=== PATIENT | male | born 1975 | race Caucasian/White ===

== ENCOUNTER 2016-05-16 16:16 | Inpatient (IN) | payer BC, OTHER ==
[~2016-05-16] VITALS: Ht 177.8 cm; Wt 84.3 kg
[~2016-05-16 16:16] MED LIST: AGM875 PO; LRT5 PO; PHEN1TAB85 PO
[2016-05-16] MEDS ORDERED: LAMO100T16 PO (16:31)
[2016-05-16] MEDS ORDERED: SODIUM CHLORIDE 0.9% 1000ML 1,000 ML IV STA (16:47)
[2016-05-16] MEDS ORDERED: LORAZEPAM 2 MG/ML 1 ML VIAL IV STA ×4 (16:47→19:09)
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
[2016-05-16 16:52] LABS: HEMATOCRIT 39.6 % (42-52); MEAN CELL VOLUME 114.8 fL (80-100); MEAN CORPUSCULAR HEMOGLOBIN 39.1 pg (25-34); MEAN CORPUSCULAR HGB CONC 34.1 g/dl (32-36); MEAN PLATELET VOLUME 10.2 fL (7.4-10.4); PLATELET COUNT 207 K/uL (130-400); RED BLOOD COUNT 3.45 M/uL (4.7-6.1); WHITE BLOOD COUNT 6.98 K/uL (4.8-10.8)
[2016-05-16 16:54] LABS: ISTAT CREATININE 0.7 mg/dl (0.6-1.3); ISTAT HEMOGLOBIN 15.3 g/dl (14.0-18.0); ISTAT IONIZED CALCIUM 1.2 mmol/l (1.12-1.32)
[2016-05-16] MEDS ORDERED: CYANOCOBALAMIN 500 MCG TAB (VIT B-12) PO STA (16:54)
[2016-05-16] MEDS ORDERED: PYRIDOXINE HCL 50 MG TAB PO STA (16:54)
[2016-05-16 17:03] LABS: BUN/CREATININE RATIO 10.5 (10-20); CALCIUM 9.3 mg/dl (8.5-10.1); CREATININE 1.1 mg/dl (0.60-1.40); MAGNESIUM 2.4 mg/dl (1.8-2.4); POTASSIUM 3.7 mmol/L (3.5-5.1)
[2016-05-16 17:14] LABS: PHOSPHORUS 4.1 mg/dl (2.5-4.9); THYROID STIMULATING HORMONE 2.02 uIu/ml (0.300-4.500)
[2016-05-16 17:15] LABS: INR 0.9 (0.9-1.1); PROTHROMBIN TIME (PATIENT) 9.9 SECONDS (9.0-12.0)
[2016-05-16] MEDS ORDERED: MULTI-VITAMIN INFUSION INJ 10 ML, THIAMINE HCL INJ 100 MG, FoLIC ACID INJ 1 MG in SODIU... IV ONE (17:15)
[2016-05-16 17:24] LABS: MANUAL MICROSCOPIC REQUIRED? NO; REVIEW REQ? NO; URINE APPEARANCE CLEAR (CLEAR); URINE BILIRUBIN NEG (NEG); URINE COLOR DK YELLOW; URINE EPITHELIAL CELL AUTO 0-5 /lpf (0-5); URINE NITRITE NEG (NEG); URINE SPECIFIC GRAVITY 1.022 (1.000-1.030); UROBILINOGEN NEG (NEG)
[2016-05-16 17:37] LABS: BASO % 0.6 %; BASO ABS # 0.04 K/uL (0-0.2); COMPLETE YES; EOS % 1.3 %; IG% 0.7 %; LYMPH ABS # 2.93 K/uL (1.2-3.4); MONO % 18.6 %; NEUT % 36.8 %
[2016-05-16] MEDS ORDERED: CLONIDINE HCL 0.3 MG/24 HR TRANSDERM SYS TD STA (17:59)
[2016-05-16 18:17] LABS: BENZODIAZEPINE, URINE NEG (NEG); COCAINE,URINE NEG (NEG); PHENCYCLIDINE, URINE NEG (NEG)
[2016-05-16] MEDS ORDERED: GABAPENTIN 600 MG TAB PO SCH (19:00)
[2016-05-16] MEDS ORDERED: LORAZEPAM 2 MG/ML 1 ML VIAL IV PRN (19:00)
[2016-05-16] MEDS ORDERED: ONDANSETRON INJ 2 MG/ML 2 ML VIAL IV PRN (19:00)
[2016-05-16] MEDS ORDERED: ACETAMINOPHEN 325 MG TAB PO PRN (19:00)
[2016-05-16] MEDS: SODIUM CHLORIDE 0.9% 1000ML 1,000 ML IV SCH (19:15)
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
[2016-05-16] MEDS ORDERED: GABAPENTIN 1200MG LOADING DOSE PO SCH (20:00)
[2016-05-16] MEDS ORDERED: MIDAZOLAM HCL 5 MG/ML 1 ML VIAL ONE (20:14)
[2016-05-16] MEDS ORDERED: LORAZEPAM 2 MG/ML 1 ML VIAL IV SCH ×2 (20:15→20:20)
[2016-05-16] MEDS ORDERED: MIDAZOLAM HCL 5 MG/ML 1 ML VIAL IV STA (20:15)
[2016-05-16] MEDS ORDERED: NURSING VERBAL MED ORDER ONE ×2 (20:15)
[2016-05-16] MEDS ORDERED: RAPID SEQUENCE INDUCTION BAG ONE (20:16)
[2016-05-16 20:18] VITALS: BP 201/134
[2016-05-16] MEDS ORDERED: PROPOFOL IV EMULSION 10 MG/ML 100 ML VIAL IV ONE (20:20)
[2016-05-16 20:26] VITALS: BP 168/106; PULSE 109; TEMP 36.9
[2016-05-16] MEDS ORDERED: NURSING DECISION MEDICATION ORDER ONE (20:30)
[2016-05-16] MEDS ORDERED: DexMEDEtomidine 4 mcg/ml Loading Dose IV ONE (20:30)
[2016-05-16] MEDS ORDERED: DexMEDEtomidine HCL INJ 200 MCG in SODIUM CHLORIDE 0.9% 50ML 48 ML IV PRN (20:30)
[2016-05-16 21:25] VITALS: BP 149/96; PULSE 91; O2SAT 100
[2016-05-16 21:39] VITALS: O2SAT 91; Ht 177.8 cm; Wt 84.3 kg
[2016-05-16 22:00] VITALS: BP 125/87; PULSE 87; O2SAT 100
[2016-05-16 23:03] LABS: ISTAT ALLEN TEST Pass; ISTAT ARTERIAL BLOOD GAS HCO3 24 meq/L (19-24); ISTAT ARTERIAL BLOOD GAS PCO2 46 mmHg (35-46); ISTAT ARTERIAL BLOOD GAS PO2 272 mmHg (80-95); ISTAT ARTERIAL BLOOD GAS pH 7.33 (7.35-7.45); ISTAT CARBON DIOXIDE 26 mEq/l (24-31); ISTAT DELIVERY SYSTEM SimpleMask; ISTAT SITE R Radial
[2016-05-16 23:59] VITALS: O2SAT 98
[2016-05-17] VITALS (12 sets, daily range): BP systolic 131–155; BP diastolic 86–105; PULSE 65–81; TEMP 37.1–37.9; O2SAT 90–99
[2016-05-17] MEDS: DexMEDEtomidine HCL INJ 400 MCG in SODIUM CHLORIDE 0.9% 100ML 96 ML IV PRN ×4 (01:06→17:21)
[2016-05-17] MEDS: SODIUM CHLORIDE 0.9% 1000ML 1,000 ML IV SCH (05:30)
[2016-05-17 05:53] LABS: HEMATOCRIT 35.5 % (42-52); MEAN CELL VOLUME 114.1 fL (80-100); MEAN CORPUSCULAR HEMOGLOBIN 38.9 pg (25-34); MEAN CORPUSCULAR HGB CONC 34.1 g/dl (32-36); PLATELET COUNT 187 K/uL (130-400); RED BLOOD COUNT 3.11 M/uL (4.7-6.1)
[2016-05-17] MEDS ORDERED: GABAPENTIN 600MG Q6H DOSE PO SCH (06:00)
[2016-05-17 06:24] LABS: BUN/CREATININE RATIO 8.6 (10-20); CREATININE 0.71 mg/dl (0.60-1.40); MAGNESIUM 2.2 mg/dl (1.8-2.4); POTASSIUM 3.8 mmol/L (3.5-5.1)
[2016-05-17 06:33] LABS: CALCIUM 7.9 mg/dl (8.5-10.1)
--- NOTE | 2016-05-17 06:41 | DIAGNOSTIC IMAGING REPORT ---
CHEST ONE VIEW PORTABLE CLINICAL HISTORY: s/p NGT tube position COMPARISON STUDY: No previous studies for comparison. FINDINGS: Nasogastric tube placed within the stomach. Bibasilar atelectasis. Mid and upper lungs are considered clear. IMPRESSION: Nasogastric tube placed within the mid stomach Electronically signed by: Thierry Newman M.D. 05/17/2016 6:39 AM Dictated Date/Time: 05/17/2016 6:39 AM
--- NOTE | 2016-05-17 07:48 | CRITICAL CARE CONSULTATION ---
DATE OF CONSULTATION: 05/16/2016 DATE OF CONSULTATION: 05/16/2016. The patient was seen on 05/16/2016. This is the dictation for that visit. CHIEF COMPLAINT: Seizure. HISTORY OF PRESENT ILLNESS: The patient is a 40-year-old gentleman who lives in [place] and was visiting his family when he had a seizure in the back of their car traveling from [place] to [place] today. He is not able to give me any history whatsoever so his history is taken exclusively from the chart and from talking to the hospitalist team. He evidently arrived from [place] 4 days ago and had a seizure somewhere around that time. He has a known seizure disorder, but also has a history of alcohol abuse. He told the hospitalist team that he usually drinks 2-4 40 ounce bottles of beer per day and was drinking at some point last night. His family reports that he was hallucinating this morning and seeing cats. They took him to [place] [employer] and on the way home he had a seizure which lasted about a minute and a half. From what I see in the records, he has had a history of seizures since perhaps 2009 when he had an EEG that I see in our system. Other than the hallucinations there were no other reports of fevers, chills, nausea, vomiting, abdominal pain or headaches. In the Emergency Department, the patient received Ativan 1 mg and normal saline 1 liter as well as multivitamin, thiamine and folate. He was hypertensive and clonidine patch was placed. He was evaluated by the hospitalist service and given an additional 11 mg of Ativan over the course of 60-90 minutes secondary to severe agitation and tremulousness. He was admitted to the floor and became agitated to the point where he needed to have 3 security guards helping to keep him safe and calm. He was put in 4-point soft restraints and transferred to the intensive care unit. I talked to the hospitalist service prior to his transfer and suggested Versed 5 mg IV x1. When I arrived in the intensive care unit, he was already somnolent after the Versed. Precedex has been started and an NG tube has been placed. PAST MEDICAL HISTORY: Seizure disorder. There are reports that he may have missed 1 dose of his Lamictal a week or 2 ago. PAST SURGICAL HISTORY: Unknown. ALLERGIES: None listed. OUTPATIENT MEDICATIONS: Lamictal 100 mg p.o. b.i.d. SOCIAL HISTORY: He smokes tobacco and lives with a roommate. He has a history of alcohol abuse and has had at least 1 DUI in the past. I understand he no longer drives. FAMILY HISTORY: Significant for hypertension. REVIEW OF SYSTEMS: Not obtainable as patient is sedated and when he is not sedated he is hallucinating. PHYSICAL EXAMINATION: VITAL SIGNS: Temperature 37.1, heart rate 73, respiratory rate 18, blood pressure 131/97, oxygen saturation 98% on 4 liters nasal cannula. HEAD, EYES, EARS, NOSE, AND THROAT: Pupils are approximately 4 mm and reactive bilaterally. There is no scleral icterus. I am unable to see inside of his mouth. NECK: No adenopathy, no stridor. No nuchal rigidity. LUNGS: Clear to auscultation bilaterally. No rales, rhonchi or wheezes. CHEST: Symmetric expansion. HEART: Regular rate and rhythm, no murmurs. ABDOMEN: Firm, nontender, nondistended. Active bowel sounds. EXTREMITIES: Warm. No edema. Normal musculature. Radial and dorsalis pedis pulses are 2+ bilaterally. SKIN: Shows scattered tattoos. NEUROLOGICALLY: He will localize to painful stimuli and try to sit up, but does not follow commands. He moves all 4 extremities, but not to command. They seem to move equally. LABORATORY DATA: White blood cell count 6.98, hemoglobin 13.5, hematocrit 39.6, platelets 207. No left shift. pH 7.33, pCO2 46, pO2 272, HCO3 24. PT, PTT, INR within normal limits. Sodium 138, potassium 3.7, chloride 101, CO2 13, BUN 12, creatinine 1.1. Blood sugar 123, AST 100, ALT 91, alkaline phosphatase 140 and total protein 8.5. TSH 2.02. Urine drug screen negative. Lamictal level pending. Salicylate less than 1.7. Alcohol less than 3. Urinalysis is essentially unremarkable. IMPRESSION: 1. Seizure in a patient with a history of seizure disorder and likely alcohol withdrawal. He does not have an elevated white blood cell count nor is he afebrile. This could be a breakthrough seizure or related to alcohol withdrawal. I have a very low suspicion that this has anything to do with infection. 2. Agitated delirium with hypertension and tachycardia likely secondary to alcohol withdrawal versus postictal state. He has received a total of 12 mg of Ativan and is now on a Precedex infusion. He is protecting his airway. 3. Metabolic acidosis on chemistries for initial Emergency Department labs which was likely secondary to his seizure. This is improved based on ABG done after he was sedated this evening. 4. Mildly elevated liver function tests. This may be secondary to alcohol use. PLAN: NEUROLOGY: Continue the Precedex infusion and begin to titrate it. I have started p.r.n. Ativan and he is on the gabapentin alcohol withdrawal protocol. Consider CT scan of the brain once he is more stable. I have ordered an EEG and we will apply seizure precautions. Continue Lamictal 100 mg b.i.d. PULMONARY: Keep head of bed at 30 degrees of possible. Try to avoid aspiration. CARDIOVASCULAR: Blood pressure has improved with the clonidine patch. Continue for now. GASTROINTESTINAL: Maintain n.p.o. status. An NG tube was placed this evening. Trend the liver function tests and check an ammonia level. A proton pump inhibitor for GI prophylaxis. Continue multivitamin, thiamine and folate. HEMATOLOGY: No active acute issues. RENAL: No acute issues. IV fluids have been started. INFECTIOUS DISEASE: Watch for any signs of infection. He is at risk for aspiration but presently his chest x-ray is clear. MISCELLANEOUS: Provide DVT prophylaxis with Lovenox. Overall, he is improved on Precedex compared to what I understand he was like earlier in the day today. He still may require endotracheal intubation. We will continue to watch his airway carefully and titrate medications. Critical care time excluding procedures is 90 minutes. [facility]
[2016-05-17] MEDS: NICOTINE 14 MG/24 HR TDSY TD SCH (08:10)
[2016-05-17] MEDS: THIAMINE HCL 100 MG TAB PO SCH (08:12)
[2016-05-17] MEDS: MULTIVITAMIN TAB PO SCH (08:12)
[2016-05-17] MEDS ORDERED: LORAZEPAM 2 MG/ML 1 ML VIAL IV PRN ×2 (08:45)
[2016-05-17] MEDS: LORAZEPAM 2 MG/ML 1 ML VIAL IV SCH ×5 (08:56→21:00)
[2016-05-17] MEDS: ENOXAPARIN 40 MG/0.4 ML SYR SQ SCH (08:56)
[2016-05-17] MEDS: D5W AND 1/2NSS 1,000 ML IV SCH ×2 (10:19→17:56)
--- NOTE | 2016-05-17 10:23 | EEG Procedure Note ---
EEG Procedure Note Date of Service May 17, 2016. Start / End Times Start Time: 7:47 AM End Time: 8:08 AM Referring Physician Maribell Hilliard History This is a 40-year-old male with a history of alcohol abuse, seizures, and possible alcohol withdrawal. EEG for further evaluation of recent seizure-like activity. The patient reportedly received Ativan before this EEG. Home Medication List Scheduled Lamotrigine (Lamictal), 100 MG PO BID Inpatient Medication List Current Inpatient Medications Medications (Trade) Dose Ordered Sig/Curtis Route Start Time Stop Time Status Last Admin Dose Admin Acetaminophen (Tylenol Tab) 650 mg Q4H PRN PO 05/16/16 19:00 06/15/16 18:59 Ondansetron HCl (Zofran Inj) 4 mg Q6H PRN IV 05/16/16 19:00 06/15/16 18:59 Nicotine (Nicoderm Cq 14MG Patch) 1 patch QAM TD 05/17/16 09:00 06/16/16 08:59 05/17/16 08:10 1 PATCH Miscellaneous (Remove Nicoderm Patch) 1 ea HS N/A 05/16/16 21:00 06/15/16 20:59 05/16/16 21:00 1 EA Multivitamins (Multivitamin Tab) 1 tab QAM PO 05/17/16 09:00 06/16/16 08:59 05/17/16 08:12 1 TAB Folic Acid (Folvite Tab) 1 mg QAM PO 05/17/16 09:00 06/16/16 08:59 05/17/16 08:11 1 MG Thiamine HCl (Vitamin B-1 Tab) 100 mg QAM PO 05/17/16 09:00 06/16/16 08:59 05/17/16 08:12 100 MG Lamotrigine 100 mg 100 mg BID PO 05/17/16 09:00 06/16/16 08:59 05/17/16 08:12 100 MG Dexmedetomidine HCl/Sodium Chloride (PreCEDEX INJ/ Nss 100ml) 100 ml @ 0 mls/hr Q0M PRN IV 05/17/16 00:30 05/21/16 00:29 05/17/16 05:31 21 MLS/HR Lorazepam (Ativan Inj) 2 mg Q3H IV 05/17/16 09:00 06/16/16 08:59 3/10/17 08:56 2 MG Lorazepam (Ativan Inj) 1 mg Q1H PRN IV 05/17/16 08:45 06/16/16 08:44 Enoxaparin Sodium 40 mg 40 mg DAILY SQ 05/17/16 09:00 06/16/16 08:59 05/17/16 08:56 40 MG Dextrose/Sodium Chloride (D5W And 1/2nss) 1,000 ml @ 125 mls/hr Q8H IV 05/17/16 09:30 06/16/16 09:29 Folic Acid (Folvite Tab) 1 mg QAM PO 05/18/16 09:00 06/17/16 08:59 Description This is a 21 electrode EEG with a single channel dedicated to limited EKG. The electrodes were placed in accordance with the International 10-20 system. First half of the EEG was limited by frequent movement artifact. At the start of this recording the patient was in altered mental status. The background was poorly organized with no well formed anterior to posterior gradient. Background was composed of symmetric moderate amplitude predominantly 5-6 Hz theta frequency with intermixed alpha and excess beta frequencies. Hyperventilation was not done. Photic stimulation at various frequencies did not produce any abnormalities. Sleep was indicated by symmetric sleep spindles. Interpretation This is an abnormal routine EEG secondary to moderate background disorganization and slowing. There was no electrographic seizures or epileptiform discharges. Clinical Correlation This EEG indicates a moderate encephalopathy of nonspecific etiology. Sedating medications could contribute to encephalopathy. Excess beta frequencies in the background likely secondary to recent benzodiazepine use.
--- NOTE | 2016-05-17 12:50 | Neurology Consultation ---
Neurology Consultation Date of Consultation: May 17, 2016. Attending Physician: Tete Ashford M.D. Primary Care Physician: No Doctor, Assigned Reason for Consultation: seizure History of Present Illness Source: patient, hospital records Freddie is a 40 year old male with PMH seizures, and alcohol abuse. He is disoriented but is able to tell me he is here because of having a seizure. He apparently drinks alcohol heavily according to chart since his divorce from his last . He apparently showed up at his parents house unannounced last week. He states he hasn't drank for several weeks and he thinks he has had several seizures. He was in the back seat of his parents car when he seized for 1.5 minutes and was taken to the hospital. ED he has been severely tremulous, he is not oriented to place. Family was asked to leave because the patient was becoming severely agitated because he didn't know them. He reports drinking 2- 4 40s daily and has a history of DUIs in the past and no longer drives. He reports history of tremors when he has withdrawal previously. He takes Lamictal for seizures and apparently missed a dose 2 weeks ago but has been compliant since then. He was tachycardic and hypertensive in the ED. Tox screen is negative. AG is >20, bicarb is 13. He received a banana bag, 2mg IV Ativan and a clonidine patch. He states he takes his Lamictal 1 tablet in the morning and 1 tablet at night and does not miss a dose. denies pain, but his his difficulty to keep awake. Past Medical/Surgical History Medical Problems: (1) Alcohol withdrawal Status: Acute (2) Seizure Status: Acute Social History Alcohol Use: heavy Marital Status: Housing Status: lives with roommate Occupation Status: employed Allergies Coded Allergies: No Known Allergies (Verified , 05/16/16) Current Inpatient Medications Current Inpatient Medications Medications (Trade) Dose Ordered Sig/Curtis Route Start Time Stop Time Status Last Admin Dose Admin Acetaminophen (Tylenol Tab) 650 mg Q4H PRN PO 05/16/16 19:00 06/15/16 18:59 Ondansetron HCl (Zofran Inj) 4 mg Q6H PRN IV 05/16/16 19:00 06/15/16 18:59 Nicotine (Nicoderm Cq 14MG Patch) 1 patch QAM TD 05/17/16 09:00 06/16/16 08:59 05/17/16 08:10 1 PATCH Miscellaneous (Remove Nicoderm Patch) 1 ea HS N/A 05/16/16 21:00 06/15/16 20:59 05/16/16 21:00 1 EA Multivitamins (Multivitamin Tab) 1 tab QAM PO 05/17/16 09:00 06/16/16 08:59 05/17/16 08:12 1 TAB Folic Acid (Folvite Tab) 1 mg QAM PO 05/17/16 09:00 06/16/16 08:59 05/17/16 08:11 1 MG Thiamine HCl (Vitamin B-1 Tab) 100 mg QAM PO 05/17/16 09:00 06/16/16 08:59 05/17/16 08:12 100 MG Lamotrigine 100 mg 100 mg BID PO 05/17/16 09:00 05/17/16 22:00 05/17/16 08:12 100 MG Dexmedetomidine HCl/Sodium Chloride (PreCEDEX INJ/ Nss 100ml) 100 ml @ 0 mls/hr Q0M PRN IV 05/17/16 00:30 05/21/16 00:29 05/17/16 10:19 21 MLS/HR Lorazepam (Ativan Inj) 2 mg Q3H IV 05/17/16 09:00 06/16/16 08:59 05/17/16 08:56 2 MG Lorazepam (Ativan Inj) 1 mg Q1H PRN IV 05/17/16 08:45 06/16/16 08:44 Enoxaparin Sodium 40 mg 40 mg DAILY SQ 05/17/16 09:00 06/16/16 08:59 05/17/16 08:56 40 MG Dextrose/Sodium Chloride (D5W And 1/2nss) 1,000 ml @ 125 mls/hr Q8H IV 05/17/16 09:30 06/16/16 09:29 05/17/16 10:19 125 MLS/HR Folic Acid (Folvite Tab) 1 mg QAM PO 05/18/16 09:00 06/17/16 08:59 Lamotrigine (Lamictal Tab) 150 mg BID PO 05/18/16 09:00 06/17/16 08:59 Physical Exam Vital Signs (Past 24 Hrs): Date Time Temp Pulse Resp B/P Pulse Ox O2 Delivery O2 Flow Rate FiO2 05/17/16 12:00 Nasal Cannula 2.0 05/17/16 12:00 37.6 81 39 145/92 98 Nasal Cannula 3.0 05/17/16 10:00 81 30 144/102 90 Nasal Cannula 3.0 05/17/16 08:00 Nasal Cannula 3.0 05/17/16 08:00 37.1 65 26 155/105 99 Nasal Cannula 3.0 05/17/16 06:08 71 26 142/86 95 Nasal Cannula 3.0 05/17/16 04:00 98 Nasal Cannula 3.0 05/17/16 04:00 37.1 65 24 142/93 98 Nasal Cannula 3.0 05/17/16 02:00 71 20 134/92 98 Nasal Cannula 3.0 05/17/16 00:01 37.1 73 18 131/97 98 Nasal Cannula 4.0 05/16/16 23:59 98 Nasal Cannula 4.0 05/16/16 22:00 87 125/87 100 05/16/16 21:39 91 Room Air 05/16/16 21:25 91 149/96 100 05/16/16 20:26 36.9 109 168/106 05/16/16 20:18 201/134 05/16/16 19:35 108 27 97 Room Air 05/16/16 19:33 162/105 05/16/16 19:16 05/16/16 19:05 113 18 05/16/16 19:00 126 20 96 Room Air 05/16/16 18:45 21 172/113 05/16/16 18:15 111 24 155/106 95 Room Air 05/16/16 18:00 118 23 165/91 96 Room Air 05/16/16 17:46 111 24 154/100 97 Room Air 05/16/16 17:31 118 21 164/88 97 Room Air 05/16/16 17:16 107 21 168/98 96 Room Air 05/16/16 17:00 123 24 183/115 97 Room Air 05/16/16 16:46 97 Room Air 05/16/16 16:46 121 20 192/115 97 Room Air 05/16/16 16:46 97 Room Air 05/16/16 16:45 117 21 192/115 95 Room Air 05/16/16 16:30 138 22 191/133 97 Room Air 05/16/16 16:25 118 05/16/16 16:23 36.7 117 20 199/168 98 Room Air 05/16/16 16:21 116 19 199/168 99 Room Air Physical Exam: Constitutional: appearance nourished, healthy and normal Ears, Nose, Mouth and Throat: mucous membranes moist, no injection and skin normal, eyes slightly matted shut, NGT in place Cardiovascular: normal S-1 and S-2 and regular rate and rhythm Respiratory: clear to auscultation (CTA) and no rales, rhonchi or wheeze Musculoskeletal: no peripheral edema and good distal pulses Skin: no stigmata of neurocutaneous disease noted and normal and intact Eyes: extraocular muscles intact (EOMI) and pupils equal, round and reactive to light (PERRL), miotic NEUROLOGIC EXAMINATION: Mental status: Alert and interactive Oriented he is not oriented to [place] or the year Oriented to person Speech fluent with no evidence of aphasia Cranial Nerves smile and eye brow raise symmetric Reflexes: Deep tendon reflexes were symmetrical and graded 2/5. Plantar responses were flexor. 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, hip flex plantar flex ext 5/5 bilaterally Laboratory Results Past 24 Hours: 05/17/16 05:20 05/17/16 05:20 Test 05/16/16 16:25 05/16/16 16:30 05/16/16 16:55 05/16/16 17:05 Immature Granulocyte % (Auto) 0.7 % White Blood Count 6.98 K/uL (4.8-10.8) Red Blood Count 3.45 M/uL (4.7-6.1) Hemoglobin 13.5 g/dL (14.0-18.0) Hematocrit 39.6 % (42-52) Mean Corpuscular Volume 114.8 fL (80-100) Mean Corpuscular Hemoglobin 39.1 pg (25-34) Mean Corpuscular Hemoglobin Concent 34.1 g/dl (32-36) Platelet Count 207 K/uL (130-400) Mean Platelet Volume 10.2 fL (7.4-10.4) Neutrophils (%) (Auto) 36.8 % Lymphocytes (%) (Auto) 42.0 % Monocytes (%) (Auto) 18.6 % Eosinophils (%) (Auto) 1.3 % Basophils (%) (Auto) 0.6 % Neutrophils # (Auto) 2.57 K/uL (1.4-6.5) Lymphocytes # (Auto) 2.93 K/uL (1.2-3.4) Monocytes # (Auto) 1.30 K/uL (0.11-0.59) Eosinophils # (Auto) 0.09 K/uL (0-0.5) Basophils # (Auto) 0.04 K/uL (0-0.2) Immature Granulocyte # (Auto) 0.05 K/uL (0.00-0.02) Macrocytosis PRESENT Prothrombin Time 9.9 SECONDS (9.0-12.0) Prothromb Time International Ratio 0.9 (0.9-1.1) Activated Partial Thromboplast Time 25.5 SECONDS (21.0-31.0) Partial Thromboplastin Ratio 1.0 Osmolality 299 mOsm/kg (280-300) Phosphorus Level 4.1 mg/dl (2.5-4.9) Beta-Hydroxybutyric Acid 0.61 mg/dL (0.2-2.81) Thyroid Stimulating Hormone (TSH) 2.020 uIu/ml (0.300-4.500) Chemistry Specimen Hemolysis Bedside Hemoglobin 15.3 g/dl (14.0-18.0) Bedside Hematocrit 45 % (42-52) Bedside Sodium 139 mEq/L (135-144) Bedside Potassium 3.7 mEq/L (3.3-5.0) Bedside Chloride 102 mEq/L (101-112) Bedside Total CO2 15 mEq/l (24-31) Bedside Blood Urea Nitrogen 11 mg/dl (7-18) Bedside Creatinine 0.7 mg/dl (0.6-1.3) Bedside Glucose (other) 123 mg/dl (70-99) Bedside Ionized Calcium (Ken) 1.20 mmol/l (1.12-1.32) Bedside Glucose 96 mg/dl (70-99) Urine Color DK YELLOW Urine Appearance CLEAR (CLEAR) Urine pH 5.0 (4.5-7.5) Urine Specific [place] 1.022 (1.000-1.030) Urine Protein 2+ (NEG) Urine Glucose (UA) 1+ (NEG) Urine Ketones NEG (NEG) Urine Occult Blood 1+ (NEG) Urine Nitrite NEG (NEG) Urine Bilirubin NEG (NEG) Urine Urobilinogen NEG (NEG) Urine Leukocyte Esterase NEG (NEG) Urine WBC (Auto) 1-5 /hpf (0-5) Urine RBC (Auto) 0-4 /hpf (0-4) Urine Hyaline Casts (Auto) 1-5 /lpf (0-5) Urine Epithelial Cells (Auto) 0-5 /lpf (0-5) Urine Bacteria (Auto) NEG (NEG) Urine Opiates Screen NEG (NEG) Urine Methadone, Qualitative NEG (NEG) Urine Barbiturates NEG (NEG) Urine Phencyclidine (PCP) Level NEG (NEG) Ur Amphetamine/Methamphetamine NEG (NEG) MDMA (Ecstasy) Screen NEG (NEG) Urine Benzodiazepines Screen NEG (NEG) Urine Cocaine Metabolite NEG (NEG) Urine Marijuana (THC) NEG (NEG) Test 05/16/16 17:47 05/16/16 19:12 05/16/16 22:43 05/17/16 05:20 Lactic Acid Level 0.7 mmol/L (0.4-2.0) Salicylates Level < 1.7 mg/dl (2.8-20) Ethyl Alcohol mg/dL < 3.0 mg/dl (0-3) Blood Gas Sample Site R Radial Bedside Blood Gas pH (LAB) 7.33 (7.35-7.45) Bedside Blood Gas pCO2 (LAB) 46 mmHg (35-46) Bedside Blood Gas pO2 (LAB) 272 mmHg (80-95) Bedside Blood Gas HCO3 (LAB) 24 meq/L (19-24) Bedside Blood Gas Total CO2 26 mEq/l (24-31) Bedside Blood Gas Base Excess (LAB) -2.0 meq/L (-9-1.8) Bedside Blood Gas O2 Saturation 100.0 % (90-95) Bulmaro Test Pass Oxygen Delivery Device SimpleMask Red Blood Count 3.11 M/uL (4.7-6.1) Mean Corpuscular Volume 114.1 fL (80-100) Mean Corpuscular Hemoglobin 38.9 pg (25-34) Mean Corpuscular Hemoglobin Concent 34.1 g/dl (32-36) RDW Standard Deviation 71.7 fL (36.4-46.3) RDW Coefficient of Variation 17.2 % (11.5-14.5) Mean Platelet Volume 10.0 fL (7.4-10.4) Anion Gap 8.0 mmol/L (3-11) Est Creatinine Clear Calc Drug Dose 145.7 ml/min Estimated GFR () 137.9 Estimated GFR (Non- 119.0 BUN/Creatinine Ratio 8.6 (10-20) Calcium Level 7.9 mg/dl (8.5-10.1) Magnesium Level 2.2 mg/dl (1.8-2.4) Total Bilirubin 0.7 mg/dl (0.2-1) Direct Bilirubin 0.2 mg/dl (0-0.2) Aspartate Amino Transf (AST/SGOT) 64 U/L (15-37) Alanine Aminotransferase (ALT/SGPT) 61 U/L (12-78) Alkaline Phosphatase 80 U/L (45-117) Total Protein 6.6 gm/dl (6.4-8.2) Albumin 3.1 gm/dl (3.4-5.0) Imaging EEG- This is an abnormal routine EEG secondary to moderate background disorganization and slowing. There was no electrographic seizures or epileptiform discharges. Impression 40 year old male s/p seizure after EtOH withdrawal Plan 1. EEG- will slowing but no epileptic activity 2. CT head pending 3. continue thiamine/ folate 4. Ativan 1 mg q 3 hours is currently watch for DTs 5. appears Lamictal home dose was 100 mg twice daily is no increased to 150 mg twice daily 6. lamictal level tomorrow 7. will need close observation for DT risk 8. further recommendations to follow I have seen and discussed above patient with Dr Laury Barrios, neurology I have reviewed pt outpt record. Dr Pedroza last saw pt in 2009 for "alcohol- related"seizures for which he was on Phenobarb. Hx reviewed, CT reviewed. Pt is currently sedated. Oriented to place, person. No complaints, denies headache recalls last etoh 2 d ago. PERRL, unable to vis fundus secondary to miosis, query mild R ptosis, no facial asymm, Moves all fours symmetrically, tremor on intention. Head NCAT, neck suppleImp sz, x2. Delirium suspicious for etoh withdrawal. Have advised Dr Hilliard on increase in Lamictal. Agree with thiamine, Will follow with you, MORENO Barrios MD
--- NOTE | 2016-05-17 12:56 | DIAGNOSTIC IMAGING REPORT ---
HEAD CT NONCONTRAST CT DOSE: 720.95 mGycm HISTORY: Mental status change seizure TECHNIQUE: Multiaxial CT images of the head were performed without the use of intravenous contrast. Comparison: 06/21/2009 Findings: The paranasal sinuses and mastoid air cells are clear. The calvarium and skull base are intact. The ventricles and sulci are within normal limits. There is no mass, hematoma, midline shift, or acute infarct. Impression: No acute intracranial abnormality. Electronically signed by: Thierry Newman M.D. 05/17/2016 12:55 PM Dictated Date/Time: 05/17/2016 12:54 PM
[2016-05-17] MEDS ORDERED: PROMETHAZINE HCL INJ 12.5 MG in SODIUM CHLORIDE 0.9% 50ML 50 ML IV PRN (13:15)
--- NOTE | 2016-05-17 14:36 | CRITICAL CARE PROGRESS NOTE ---
DATE: 05/17/2016 HISTORY OF PRESENT ILLNESS: This is a patient who was admitted to the floor yesterday from the Emergency Department after suffering a seizure. He was transferred to the intensive care unit secondary to increasing agitation, which was being treated with Ativan. When he arrived in the intensive care unit, he was placed on a Precedex infusion after a bolus and an NG tube as well as a Renee catheter were placed at that time. He has remained on Precedex at 1 mcg per kilogram per hour and has been manageable on that overnight. His care was discussed in detail on multidisciplinary rounds today. He coughs at times and will awaken, but follows some commands according to his nurse. I had the opportunity to speak with his sister this morning, who was at the bedside. She reports that the patient arrived at the [place] after flying to [place] [facility] [employer] on Friday. This was a planed visit and he visits his family about once a year as he is originally from [place]. He has been living in [place] for at least 7 years and it sounds to me like his family does not see him very often. He was staying at his parents' house and had a seizure on Friday night, described as "the worst they had seen before." He was in a recliner at that time, but his sister did not know how long the seizure lasted. She saw him Friday and Friday and thought he was doing well. She reports he has tremors, which he has had for many years and that these tremors were worse on Friday. Her family reported that the patient may have been confused and had "bad night" on Friday and Friday night. He may have been walking outside the house at night, but she is really not sure. The patient's parents are elderly and his mother evidently is also sick. Nonetheless, the family is not aware of any present alcohol abuse, but they indicate that he has had alcoholism in the past. They are not sure whether or not he may have been drinking on Friday night. He does not drive due to seizures, but there may have been some beer in a second refrigerator in the basement that he could have had access to. Yesterday, the day of admission, they went to [facility] and on the way home, the patient started having hallucination in seeing his ex- multiple times. He had a seizure, which lasted about a minute and a half while in the car and was brought to the Emergency Department by car, his sister was driving. Notes, he may have fallen out of bed, but other than that, it is unknown whether or not he has suffered any trauma or hit his head. His seizure history goes back many years and his sister believes that it may have been stress induced secondary to multiple challenging events in the patient's life around that time. She does not know what medications he takes or he has been taking them on a consistent basis, but believes that he has. When I talked to the patient today, he is very sedated, but can tell me that he does not have any pain. He is difficult to understand because his words are slurred. He is not agitated. PHYSICAL EXAMINATION: VITAL SIGNS: Maximum temperature 37.1, heart rate 71-109, respiratory rate 18-26, blood pressure 142/90, and oxygen saturation 95% on 3 liters nasal cannula. 24-hour fluid balance is -200 mL. GENERAL: He will open his eyes and inconsistently follow commands, but does move all 4 extremities. Oral mucosa is dry. He coughs at times. LUNGS: Rhonchorous in the bilateral bases. No rales or wheezes. HEART: Regular rate and rhythm. No murmurs noted. ABDOMEN: Firm, nondistended, and nontender. Active bowel sounds. EXTREMITIES: Warm. LABORATORY DATA: White blood cell count 5.4, hemoglobin 12.1, hematocrit 35.5, and platelets 187. Sodium 138, potassium 3.8, chloride 110, CO2 of 25, BUN 6, and creatinine 0.71. AST 64, ALT 61, total bilirubin 0.7, and albumin 3.1. Head CT from today shows no acute process. MEDICATIONS: Tylenol, Precedex, D5 normal saline at 125 mL per hour, Lovenox, folic acid, Lamictal 100 mg p.o. b.i.d., Ativan 3 mg IV q. 2 hours p.r.n. restlessness, multivitamin, nicotine patch, Zofran, and thiamine. EEG done this morning shows no EEG evidence of seizures or epileptiform discharges. There is moderate encephalopathy of nonspecific etiology as well. Excess beta frequencies in the background, likely secondary to recent benzodiazepine use. EKG from today shows normal sinus rhythm with nonspecific ST-T wave changes, corrected QT interval at 502 milliseconds. ASSESSMENT: 1. Seizure, possibly related to alcohol withdrawal; however, he says he has a seizure disorder. Information that I have access to is limited regarding his previous visits for seizures. He has remained seizure free since he has been in the hospital. 2. Agitated delirium, which I suspect is secondary to alcohol withdrawal, although I do not have any definite recent history to substantiate that. 3. History of alcoholism. 4. Prolonged corrected QT interval, likely secondary to medications. 5. Hypertension, improved. 6. Metabolic acidosis, resolved. 7. Elevated liver function tests, resolved, this may have been secondary to alcohol as well. PLAN: NEUROLOGIC: I have discontinued the gabapentin protocol for alcohol withdrawal and I am using Ativan on a scheduled and a p.r.n. basis. I would like to try to wean the Precedex by doing that. I have consulted the neurology service and Dr. Barrios about his care. He will get an extra dose of Lamictal this afternoon, 100 mg tonight and then start 150 mg b.i.d. tomorrow. Continue to watch for seizure activity. He is on seizure precautions. CARDIOVASCULAR: If he becomes hypertensive, consider a clonidine patch or beta miranda. Follow the QT interval. PULMONARY: He is at risk for developing pneumonia and I told his sister that. Maintain head of bed at least 30 degrees and maintain n.p.o. status. He has an NG tube for medications. GASTROINTESTINAL: As above. Hold on any feeds for the time being. Provide GI prophylaxis. RENAL: No acute issues. HEMATOLOGY: No acute issues. ENDOCRINE: Consider checking TSH. FLUIDS, ELECTROLYTES AND NUTRITION: He is on multivitamin, thiamine and folic acid. Continue IV fluids and consider tube feeds tomorrow. He is getting Lovenox and SCDs for DVT prophylaxis. I discussed his care in detail with his sister, who is our primary contact at the moment due to elderly parents of both she and the patient. Questions were answered and support provided. Critical care time 60 minutes. BARBARA
--- NOTE | 2016-05-17 15:03 | Progress Note ---
Internal Med Progress Note Date of Service: May 17, 2016. Provider Documentation: SUBJECTIVE: pt retuned form CT head -negative for acute change remains sedated on IV Precedex gtt OBJECTIVE: Vital Signs-as noted below Exam: General-sedated on Precedex gtt Eyes-pupils pin point, reactive to light ENT-NG tube present Lungs-diminished, no wheeze or rales Heart-regular , no JVD , no carotid bruit , no lower ext edema Abdomen-soft, non tender Extremities-no rash or deformity Neuro-sedated Lab data as noted below. ASSESSMENT & PLAN: ALTERED MENTAL STATUS /SEIZURE /POSSIBLE ALCOHOL WITHDRAWAL - -Severely tremulous, disoriented when seen in the ED -had seizure , possible alcohol withdrawal , concern for underlying seizure disorder presented with Anion gap > 20 with Hco3 13 , possible due to withdrawal from alcohol metabolic acidosis resolved with IV hydration CT head negative for CVA EEG -no active seizure episode -ICU monitoring -Seizure precautions cont IVF , thiamine, Folate -appreciate input form critical care -high risk for aspiration , has NG tube in placed Cxray ordered in AM SEIZURE DISORDER/WITH WITHDRAWAL SEIZURE -appreciate neurology eval EEG -no epileptogenic activity -was on Lamictal 100 mg PO BID ( prior sz disorder ? ) dose increased to 150 mg PO BID on IV Precedex gtt for DT /severe alcohol withdrawal - PRN IV Ativan -seizure precautions HYPERTENSIVE URGENCY -likely secondary to alcohol withdrawal -BP improved after IV sedation -ordered for clonidine via NG tube PRN for hypertension IV Labetalol PRN ELEVATED ANION GAP/ LOW BICARB due to withdrawal seizure -AG 24, Bicarb 13 -resolved with IV fluids-AG ~8 .Bicarb 25 cont IVF monitor electrolytes TOBACCO ABUSE -Nicotine patch ordered DVT PROPHYLAXIS: SCDs CODE STATUS: FULL CODE DISPOSITION cont to monitor in ICU for close monitoring of hemodynamics caution for DT Vital Signs: Date Time Temp Pulse Resp B/P Pulse Ox O2 Delivery O2 Flow Rate FiO2 05/17/16 16:00 Nasal Cannula 2.0 05/17/16 16:00 37.9 76 30 133/86 95 Nasal Cannula 2.0 05/17/16 14:00 76 26 139/88 98 Nasal Cannula 3.0 05/17/16 12:00 Nasal Cannula 2.0 05/17/16 12:00 37.6 81 39 145/92 98 Nasal Cannula 3.0 05/17/16 10:00 81 30 144/102 90 Nasal Cannula 3.0 05/17/16 08:00 Nasal Cannula 3.0 05/17/16 08:00 37.1 65 26 155/105 99 Nasal Cannula 3.0 05/17/16 08:00 Nasal Cannula 05/17/16 06:08 71 26 142/86 95 Nasal Cannula 3.0 05/17/16 04:00 98 Nasal Cannula 3.0 05/17/16 04:00 37.1 65 24 142/93 98 Nasal Cannula 3.0 05/17/16 02:00 71 20 134/92 98 Nasal Cannula 3.0 05/17/16 00:01 37.1 73 18 131/97 98 Nasal Cannula 4.0 05/16/16 23:59 98 Nasal Cannula 4.0 05/16/16 22:00 87 125/87 100 05/16/16 21:39 91 Room Air 05/16/16 21:25 91 149/96 100 05/16/16 20:26 36.9 109 168/106 05/16/16 20:18 201/134 05/16/16 19:35 108 27 97 Room Air 05/16/16 19:33 162/105 05/16/16 19:16 05/16/16 19:05 113 18 05/16/16 19:00 126 20 96 Room Air 05/16/16 18:45 21 172/113 Lab Results: Results Past 24 Hours Test 05/16/16 19:12 05/16/16 22:43 05/17/16 05:20 05/17/16 15:25 Range/Units Lactic Acid Level 0.7 0.4-2.0 mmol/L Salicylates Level < 1.7 2.8-20 mg/dl Ethyl Alcohol mg/dL < 3.0 0-3 mg/dl Blood Gas Sample Site R Radial Bedside Blood Gas pH (LAB) 7.33 7.35-7.45 Bedside Blood Gas pCO2 (LAB) 46 35-46 mmHg Bedside Blood Gas pO2 (LAB) 272 80-95 mmHg Bedside Blood Gas HCO3 (LAB) 24 19-24 meq/L Bedside Blood Gas Total CO2 26 24-31 mEq/l Bedside Blood Gas Base Excess (LAB) -2.0 -9-1.8 meq/L Bedside Blood Gas O2 Saturation 100.0 90-95 % Bulmaro Test Pass Oxygen Delivery Device SimpleMask White Blood Count 5.40 4.8-10.8 K/uL Red Blood Count 3.11 4.7-6.1 M/uL Hemoglobin 12.1 14.0-18.0 g/dL Hematocrit 35.5 42-52 % Mean Corpuscular Volume 114.1 80-100 fL Mean Corpuscular Hemoglobin 38.9 25-34 pg Mean Corpuscular Hemoglobin Concent 34.1 32-36 g/dl RDW Standard Deviation 71.7 36.4-46.3 fL RDW Coefficient of Variation 17.2 11.5-14.5 % Platelet Count 187 130-400 K/uL Mean Platelet Volume 10.0 7.4-10.4 fL Sodium Level 143 136-145 mmol/L Potassium Level 3.8 3.5-5.1 mmol/L Chloride Level 110 98-107 mmol/L Carbon Dioxide Level 25 21-32 mmol/L Anion Gap 8.0 3-11 mmol/L Blood Urea Nitrogen 6 7-18 mg/dl Creatinine 0.71 0.60-1.40 mg/dl Est Creatinine Clear Calc Drug Dose 145.7 ml/min Estimated GFR () 137.9 Estimated GFR (Non- 119.0 BUN/Creatinine Ratio 8.6 10-20 Random Glucose 94 70-99 mg/dl Calcium Level 7.9 8.5-10.1 mg/dl Magnesium Level 2.2 1.8-2.4 mg/dl Total Bilirubin 0.7 0.2-1 mg/dl Direct Bilirubin 0.2 0-0.2 mg/dl Aspartate Amino Transf (AST/SGOT) 64 15-37 U/L Alanine Aminotransferase (ALT/SGPT) 61 12-78 U/L Alkaline Phosphatase 80 45-117 U/L Total Protein 6.6 6.4-8.2 gm/dl Albumin 3.1 3.4-5.0 gm/dl Ammonia 51.0 11-32 umol/L Vitamin B12 Level 599 211-911 pg/mL Folate > 24.00 >5.38 ng/mL
[2016-05-17] MEDS ORDERED: CLONIDINE HCL 0.1 MG TAB NG PRN (18:30)
[2016-05-17] MEDS ORDERED: PIPERACILL/TAZOBAC CONSULT ACTIVE PRN (18:45)
[2016-05-17] MEDS ORDERED: PIPERACILL/TAZOBAC IV 3.375 GM in DEXTROSE 5% 100ML 100 ML IV ONE (19:00)
[2016-05-17] MEDS ORDERED: GABAPENTIN 600MG Q8H DOSE PO SCH (22:00)
[2016-05-18] VITALS (17 sets, daily range): BP systolic 138–176; BP diastolic 77–119; PULSE 74–107; TEMP 36.4–38.5; O2SAT 90–97
[2016-05-18] MEDS: LORAZEPAM 2 MG/ML 1 ML VIAL IV SCH ×9 (00:21→23:45)
[2016-05-18] MEDS: PIPERACILL/TAZOBAC IV 3.375 GM in DEXTROSE 5% 100ML 100 ML IV SCH ×2 (00:21→07:58)
[2016-05-18] MEDS: D5W AND 1/2NSS 1,000 ML IV SCH ×2 (01:26→09:00)
[2016-05-18] MEDS: DexMEDEtomidine HCL INJ 400 MCG in SODIUM CHLORIDE 0.9% 100ML 96 ML IV PRN (01:26)
[2016-05-18 06:06] LABS: BASO % 0.3 %; BASO ABS # 0.02 K/uL (0-0.2); EOS % 1.2 %; HEMATOCRIT 34.8 % (42-52); IG% 0.3 %; LYMPH % 21.5 %; LYMPH ABS # 1.46 K/uL (1.2-3.4); MEAN CELL VOLUME 110.8 fL (80-100); MEAN CORPUSCULAR HEMOGLOBIN 37.6 pg (25-34); MEAN CORPUSCULAR HGB CONC 33.9 g/dl (32-36); MEAN PLATELET VOLUME 9.6 fL (7.4-10.4); MONO % 12.2 %; NEUT % 64.5 %; PLATELET COUNT 205 K/uL (130-400); RED BLOOD COUNT 3.14 M/uL (4.7-6.1); WHITE BLOOD COUNT 6.78 K/uL (4.8-10.8)
[2016-05-18 06:36] LABS: BUN/CREATININE RATIO 7.3 (10-20); CALCIUM 8.3 mg/dl (8.5-10.1); CREATININE 0.77 mg/dl (0.60-1.40); MAGNESIUM 1.9 mg/dl (1.8-2.4); POTASSIUM 3.3 mmol/L (3.5-5.1)
[2016-05-18 06:37] LABS: ANISOCYTOSIS PRESENT; COMPLETE YES
[2016-05-18 06:39] LABS: PHOSPHORUS 2.9 mg/dl (2.5-4.9)
--- NOTE | 2016-05-18 07:05 | DIAGNOSTIC IMAGING REPORT ---
CHEST ONE VIEW PORTABLE CLINICAL HISTORY: Shortness of breath COMPARISON STUDY: 05/16/2016 FINDINGS: The heart is the upper limits of normal in size. There is no failure. There are bibasal airspace opacities suggestive of atelectasis. The upper lung zones appear clear. There are no significant pleural effusions.[ IMPRESSION: Persistent bibasal airspace opacities having and atelectatic-type configuration Electronically signed by: Alcon Peace M.D. 05/18/2016 7:04 AM Dictated Date/Time: 05/18/2016 7:03 AM
[2016-05-18] MEDS ORDERED: POTASSIUM CHLORIDE 10 MEQ TABCR PO STA (07:52)
[2016-05-18] MEDS: CHECK CLONIDINE PATCH PLACEMENT SCH ×2 (08:00→15:17)
[2016-05-18] MEDS ORDERED: MAGNESIUM SULFATE 1GM / D5W 1 GM in PREMIXED IN D5W 100 ML IV ONE (08:15)
[2016-05-18] MEDS: CLONIDINE HCL 0.1 MG/24 HR TRANSDERM SYS TD SCH ×2 (08:37→19:09)
[2016-05-18] MEDS: ENOXAPARIN 40 MG/0.4 ML SYR SQ SCH (08:39)
[2016-05-18] MEDS: MULTIVITAMIN TAB PO SCH (08:42)
[2016-05-18] MEDS: THIAMINE HCL 100 MG TAB PO SCH (08:42)
[2016-05-18] MEDS: NICOTINE 14 MG/24 HR TDSY TD SCH (08:42)
--- NOTE | 2016-05-18 11:13 | Progress Note ---
Internal Med Progress Note Date of Service: May 18, 2016. Provider Documentation: SUBJECTIVE: awake and alert Precedex gtt discontinued no seizure activity noted able to converse appropriately , denies of any headache, or blurred vision has not recollections of past 48 hrs very poor historian mentions that he was diagnosed with Sz disorder at age 15 moved to [place] approx 8 hrs back , did not had any Neurology in [place] in past at present follows with Neurology in [place] on Lamictal gets a Sz episode one a month ? admits of drinking heavily , has DUI , does not have drivers license ate his breakfast afebrile no complain of cough or SOB OBJECTIVE: Vital Signs-as noted below Exam: General-awake and alert Eyes-sclera non icteric , PERRLA/EOMI ENT-dry oral mucosa , Lungs-clear to auscultate, no wheeze or rales Heart-regular , no JVD , no carotid bruit , no lower ext edema Abdomen-soft, non tender Extremities-no rash or deformity Neuro-no focal neurological deficit Lab data as noted below. ASSESSMENT & PLAN: ALTERED MENTAL STATUS /SEIZURE /POSSIBLE ALCOHOL WITHDRAWAL - resolved -off Precedex gtt , awake and alert, no agitation noted , not requiring IV Ativan PRN conversing -presented with confusion Severely tremulous, disoriented in the ED -had seizure , possible alcohol withdrawal , concern for underlying seizure disorder presented with Anion gap > 20 with Hco3 13 , possible due to withdrawal from alcohol metabolic acidosis resolved with IV hydration CT head negative for CVA EEG -no active seizure episode -required ICU monitoring -Seizure precautions/ IVF , thiamine, Folate -appreciate input form critical care - awake and alert now , off sedation remains stable hemodynamically stable to transfer to PCU SEIZURE DISORDER/WITH WITHDRAWAL SEIZURE -appreciate neurology eval EEG -no epileptogenic activity -was on Lamictal 100 mg PO BID ( hx sz disorder ) dose increased to 150 mg PO BID -seizure precautions HYPERTENSIVE URGENCY -likely secondary to alcohol withdrawal -ordered for clonidine patch IV Labetalol PRN ELEVATED ANION GAP/ LOW BICARB resolved due to withdrawal seizure -AG 24, Bicarb 13 -resolved with IV fluids-AG ~8 .Bicarb 25 decrease IVF , pt is started on PO Diet monitor electrolytes TOBACCO ABUSE -Nicotine patch ordered DVT PROPHYLAXIS: SCDs CODE STATUS: FULL CODE DISPOSITION transfer to PCU Vital Signs: Date Time Temp Pulse Resp B/P Pulse Ox O2 Delivery O2 Flow Rate FiO2 3/11/17 10:10 88 19 163/93 05/18/16 10:00 107 19 169/108 05/18/16 09:00 99 20 147/94 94 Room Air 05/18/16 08:00 97 Room Air 05/18/16 08:00 Room Air 05/18/16 08:00 36.9 99 18 158/97 97 Room Air 05/18/16 06:00 75 24 157/100 93 Room Air 05/18/16 04:00 36.7 74 21 140/84 91 Room Air 05/18/16 04:00 Room Air 05/18/16 02:00 37.7 82 22 138/77 90 Room Air 05/18/16 00:01 38.5 81 22 152/98 92 Room Air 05/17/16 23:59 Room Air 05/17/16 22:00 78 12 145/95 92 Room Air 05/17/16 20:00 96 Nasal Cannula 2.0 05/17/16 20:00 76 25 141/92 94 05/17/16 18:00 77 25 148/93 96 Nasal Cannula 2.0 05/17/16 16:00 Nasal Cannula 2.0 05/17/16 16:00 37.9 76 30 133/86 95 Nasal Cannula 2.0 05/17/16 14:00 76 26 139/88 98 Nasal Cannula 3.0 05/17/16 12:00 Nasal Cannula 2.0 05/17/16 12:00 37.6 81 39 145/92 98 Nasal Cannula 3.0 Lab Results: Results Past 24 Hours Test 05/17/16 15:25 05/18/16 05:41 Range/Units Ammonia 51.0 11-32 umol/L Vitamin B12 Level 599 211-911 pg/mL Folate > 24.00 >5.38 ng/mL White Blood Count 6.78 4.8-10.8 K/uL Red Blood Count 3.14 4.7-6.1 M/uL Hemoglobin 11.8 14.0-18.0 g/dL Hematocrit 34.8 42-52 % Mean Corpuscular Volume 110.8 80-100 fL Mean Corpuscular Hemoglobin 37.6 25-34 pg Mean Corpuscular Hemoglobin Concent 33.9 32-36 g/dl Platelet Count 205 130-400 K/uL Mean Platelet Volume 9.6 7.4-10.4 fL Neutrophils (%) (Auto) 64.5 % Lymphocytes (%) (Auto) 21.5 % Monocytes (%) (Auto) 12.2 % Eosinophils (%) (Auto) 1.2 % Basophils (%) (Auto) 0.3 % Neutrophils # (Auto) 4.37 1.4-6.5 K/uL Lymphocytes # (Auto) 1.46 1.2-3.4 K/uL Monocytes # (Auto) 0.83 0.11-0.59 K/uL Eosinophils # (Auto) 0.08 0-0.5 K/uL Basophils # (Auto) 0.02 0-0.2 K/uL RDW Standard Deviation 66.6 36.4-46.3 fL RDW Coefficient of Variation 16.5 11.5-14.5 % Immature Granulocyte % (Auto) 0.3 % Immature Granulocyte # (Auto) 0.02 0.00-0.02 K/uL Anisocytosis PRESENT Macrocytosis PRESENT Sodium Level 138 136-145 mmol/L Potassium Level 3.3 3.5-5.1 mmol/L Chloride Level 104 98-107 mmol/L Carbon Dioxide Level 25 21-32 mmol/L Anion Gap 9.0 3-11 mmol/L Blood Urea Nitrogen 6 7-18 mg/dl Creatinine 0.77 0.60-1.40 mg/dl Est Creatinine Clear Calc Drug Dose 134.3 ml/min Estimated GFR () 133.4 Estimated GFR (Non- 115.1 BUN/Creatinine Ratio 7.3 10-20 Random Glucose 90 70-99 mg/dl Calcium Level 8.3 8.5-10.1 mg/dl Phosphorus Level 2.9 2.5-4.9 mg/dl Magnesium Level 1.9 1.8-2.4 mg/dl Total Bilirubin 1.3 0.2-1 mg/dl Direct Bilirubin 0.4 0-0.2 mg/dl Aspartate Amino Transf (AST/SGOT) 36 15-37 U/L Alanine Aminotransferase (ALT/SGPT) 46 12-78 U/L Alkaline Phosphatase 71 45-117 U/L Total Protein 6.6 6.4-8.2 gm/dl Albumin 2.8 3.4-5.0 gm/dl Microbiology Results 05/17/16 Blood Culture, Received Pending 05/17/16 Blood Culture, Received Pending
[2016-05-18] MEDS: LABETALOL HCL IV 5 MG/ML 20ML IV PRN (12:12)
--- NOTE | 2016-05-18 12:22 | CRITICAL CARE PROGRESS NOTE ---
DATE: 05/18/2016 SUBJECTIVE: There were no acute events overnight. The patient was weaned off the Precedex and it has been off since between 8 a.m. and 9 a.m. this morning. He is still impulsive at times and has been confused but not combative. He pulled out his NG tube last night and was started on a diet this morning. He is eating well. He has not had a bowel movement. His care was discussed with his bedside nurse, Kamilah. He was started on Zosyn yesterday for temperature of 38.5. OBJECTIVE: VITAL SIGNS: Maximum temperature 38.5, heart rate 75-81, respiratory rate 24-30, blood pressure 140-157/70s-90s, oxygen saturation 91-93% on room air. NEUROLOGIC: He is awake, alert and follows commands. He is disoriented to place but not to person. He is mildly tremulous. LUNGS: Clear to auscultation bilaterally. No rales, rhonchi or wheezes. HEART: Tachycardic, regular, no murmurs. ABDOMEN: Soft, nondistended, nontender. EXTREMITIES: Warm with trace edema in his hands. LABORATORY DATA: White blood cell count 6.78, hemoglobin 11.8, hematocrit 34.8, platelets 205. Sodium 138, potassium 3.4, chloride 104, CO2 25, BUN 6, creatinine 0.77, calcium 8.3, total bilirubin 1.3, direct bilirubin 0.4, albumin 2.8. MEDICATIONS: Acetaminophen, doxycycline, Lovenox, folic acid, labetalol, Lamictal, p.r.n. Ativan scheduled, Nicoderm patch, multivitamin, promethazine, thiamine. IMAGING: Portable chest x-ray from this morning was reviewed and shows persistent bibasilar infiltrates, likely atelectasis. IMPRESSION: 1. Alcohol withdrawal syndrome with agitated delirium, improved. 2. Seizure, likely secondary to alcohol withdrawal. He is on Lamictal as an outpatient for seizures. 3. Hypokalemia. 4. Fever with no definite infiltrate on chest x-ray, although he is at risk for aspiration pneumonia or pneumonitis. Zosyn was changed to doxycycline this morning. 5. Hypertension and tachycardia, secondary to #1. 6. Suspected alcoholism. PLAN: 1. Clonidine patch was added today. 2. Could consider a small dose of Lopressor. 3. Continue IV Ativan with p.r.n. Consider changing to p.o. 4. Continue Lamictal 150 mg p.o. b.i.d. 5. Replete electrolytes. 6. He is getting multivitamin, thiamine and folate. 7. Follow the bilirubin. 8. Incentive spirometry. I think he is stable for transfer to the floor. He may require some p.r.n.'s for his blood pressure and has clonidine and labetalol ordered. Please call me with any questions or concerns.
--- NOTE | 2016-05-18 12:48 | PROGRESS NOTE ---
DATE: 05/18/2016 SUBJECTIVE: I am seeing Mr. Ahuja in followup for several seizures, some encephalopathy thought to be related to alcohol withdrawal. The patient is much more awake and alert today and gives a better history. He indicates that his seizures have been well controlled until the last 6 or so months, in spite of that he was on a fairly low dose of Lamictal. He indicates his neurologist did not do any additional imaging. He indicates given the change in the pattern of the seizures, he indicates that flashing lights will be a trigger for his headache. He denies any family history of the same. PHYSICAL EXAMINATION: NEUROLOGIC: He is awake and alert. He is oriented. Speech and language are normal. There is normal extraocular motility, facial symmetry. There is a tremor on [id number] and there is a minor head tremor as well which is very fine. IMPRESSION: This patient has a known seizure disorder, had several seizures. We have increased his Lamictal to 150 b.i.d. After a week, I would increase it to 200 b.i.d. and then after another week 250 b.i.d., monitoring for rash. I would likely keep him at that dosing because he has had multiple breakthrough seizures. I would like him to have a follow up MRI of the brain given that there has been escalation in the pattern of his seizures and he will need to find a neurologist in followup post-discharge in [place]. Will continue to follow up with you. BARBARA
--- NOTE | 2016-05-18 18:52 | DIAGNOSTIC IMAGING REPORT ---
MRI OF THE BRAIN WITHOUT AND WITH IV CONTRAST CLINICAL HISTORY: Increasing seizures COMPARISON STUDY: Head CT dated 05/17/2016, MRI the brain dated 07/12/2009 TECHNIQUE: MRI of the brain was performed from the vertex to the skull base utilizing various T1 and T2 weighted sequences. Following the IV administration of 9 mL of Gadavist contrast, additional enhanced images were obtained. FINDINGS: Sagittal T1, axial diffusion, proton density and T2 weighted axial, coronal FLAIR, and pre and post axial T1-weighted images were acquired. These were supplemented with post gadolinium coronal T1 weighted images. No intra or extra-axial mass lesions are visualized. Axial diffusion-weighted images reveal no evidence of acute or subacute infarction. There is no evidence of ventricular dilatation. Proton density T2-weighted and FLAIR images reveal no significant intraparenchymal signal abnormalities. Coronal T2-weighted images through temporal lobes reveal symmetric acute formations. There are no abnormal flow voids. There is no evidence of pathologic enhancement. Prominence of the lateral cerebellar sulci remain similar to the prior study. IMPRESSION: No change from the prior study. No acute findings. No evidence of intracranial mass. No evidence of acute or subacute infarction. Electronically signed by: Alcon Peace M.D. 05/18/2016 6:51 PM Dictated Date/Time: 05/18/2016 6:48 PM
[2016-05-18] MEDS: DOXYCYCLINE HYCLATE 100 MG CAP PO SCH (20:37)
[2016-05-18] MEDS: DOCUSATE SODIUM 100 MG CAP PO SCH (20:38)
[2016-05-19] VITALS (11 sets, daily range): BP systolic 148–188; BP diastolic 83–122; PULSE 69–88; TEMP 36.4–37.3; O2SAT 96–100
[2016-05-19] MEDS ORDERED: GABAPENTIN 600MG Q12H DOSE PO SCH
[2016-05-19] MEDS: CHECK CLONIDINE PATCH PLACEMENT SCH ×3 (00:02→16:09)
[2016-05-19] MEDS: LORAZEPAM 2 MG/ML 1 ML VIAL IV SCH ×7 (03:41→21:00)
[2016-05-19 07:21] LABS: BUN/CREATININE RATIO 9.6 (10-20); CALCIUM 8.7 mg/dl (8.5-10.1); CREATININE 0.72 mg/dl (0.60-1.40); MAGNESIUM 2.3 mg/dl (1.8-2.4); PHOSPHORUS 3.7 mg/dl (2.5-4.9); POTASSIUM 3.4 mmol/L (3.5-5.1)
[2016-05-19] MEDS: DOCUSATE SODIUM 100 MG CAP PO SCH ×2 (09:00→21:00)
[2016-05-19] MEDS: NICOTINE 14 MG/24 HR TDSY TD SCH (09:01)
[2016-05-19] MEDS: MULTIVITAMIN TAB PO SCH (09:05)
[2016-05-19] MEDS: DOXYCYCLINE HYCLATE 100 MG CAP PO SCH ×2 (09:05→21:01)
[2016-05-19] MEDS: THIAMINE HCL 100 MG TAB PO SCH (09:05)
[2016-05-19] MEDS: ENOXAPARIN 40 MG/0.4 ML SYR SQ SCH (09:06)
--- NOTE | 2016-05-19 11:57 | PROGRESS NOTE ---
DATE: 05/19/2016 HISTORY OF PRESENT ILLNESS: I am seeing Mr. Ahuja in followup of several breakthrough seizures and very likely alcohol withdrawal, although the patient denies that he does have a history in the past. We had escalated his Lamictal from 100 b.i.d. to 150 b.i.d. He remains mildly tremulous, although he indicates that at baseline, he has a tremor. PHYSICAL EXAMINATION: GENERAL: He is awake and alert. Speech and language are unremarkable. VITAL SIGNS: Temperature 36.4, heart rate 83, respirations 18, blood pressure 161/105 and oxygen saturation 98%. NEUROLOGIC: He is mildly tremulous. He has a fine head tremor and a fine tremor with intention. His speech and language are normal and his gait is unremarkable. Tandem normal as well. IMPRESSION AND PLAN: This is a patient with a fairly longstanding seizure disorder. My partner, when he had seen him many years ago, felt that some of his seizures were alcohol related. This does not imply as the patient does not need anticonvulsant. I am not in receipt of his medical records and I suspect he has had some seizures even without alcohol and without alcohol withdrawal. I would recommend after taking Lamictal 150 b.i.d. for a week that he go to 200 b.i.d. for a week and then 250 b.i.d. He should monitor for rash, which is a known side effect of Lamictal and he will need to establish with a neurologist in [place]. He is not driving and he may not drive. He will need to be cleared by his neurologist to [place]. I am not aware of the driving restriction post-seizure in [place]. Clearly, this patient does not have well enough controlled seizures to return to driving. [facility]
[2016-05-19] MEDS: LABETALOL HCL IV 5 MG/ML 20ML IV PRN ×2 (12:20→19:36)
--- NOTE | 2016-05-19 18:24 | Progress Note ---
Internal Med Progress Note Date of Service: May 19, 2016. Provider Documentation: SUBJECTIVE: sitting up on chair working with coloring book awake and alert , denies of any headache no Seizure symptom no sign of withdrawal childress mild tremor on out stretch hands OBJECTIVE: Vital Signs-as noted below Exam: General-awake and alert Eyes-sclera non icteric , PERRLA/EOMI ENT-dry oral mucosa , Lungs-clear to auscultate, no wheeze or rales Heart-regular , no JVD , no carotid bruit , no lower ext edema Abdomen-soft, non tender Extremities-no rash or deformity Neuro-no focal neurological deficit , mild tremors on hands Lab data as noted below. ASSESSMENT & PLAN: ALTERED MENTAL STATUS /SEIZURE /POSSIBLE ALCOHOL WITHDRAWAL - resolved -off Precedex gtt for 24 hrs , awake and alert, no agitation noted , not requiring IV Ativan PRN conversing -presented with confusion Severely tremulous, disoriented in the ED -had seizure , possible alcohol withdrawal , concern for underlying seizure disorder presented with Anion gap > 20 with Hco3 13 , possible due to withdrawal from alcohol metabolic acidosis resolved with IV hydration CT head negative for CVA EEG -no active seizure episode -required ICU monitoring -Seizure precautions/ IVF , thiamine, Folate -appreciate input form critical care - pt has been recovering well in past 24 hrs no evidence of withdrawal , cont to monitor SEIZURE DISORDER/WITH WITHDRAWAL SEIZURE EEG -no epileptogenic activity -was on Lamictal 100 mg PO BID ( hx sz disorder ) dose increased to 150 mg PO BID -seizure precautions -appreciate neurology eval pt was not on adequate antiseizure dose -having frequent breakthrough seizures pt will continue with Lamictal 150 mg PO BID for 1 week then increase dose to 200 mg PO BID -cont 1 week and increased to maintenance dose of 250 mg PO BID pt will continue to have follow up with his Neurology in [place] pt should not be allowed to drive till his Seizure is well controlled ( no Sz in 6 months /Neurology eval and clearance to Drive ) HYPERTENSIVE URGENCY BP has improved -likely secondary to alcohol withdrawal -on clonidine patch IV Labetalol PRN ELEVATED ANION GAP/ LOW BICARB resolved due to withdrawal seizure -AG 24, Bicarb 13 -resolved with IV fluids-AG ~8 .Bicarb 25 monitor electrolytes TOBACCO ABUSE -Nicotine patch ordered DVT PROPHYLAXIS: SCDs CODE STATUS: FULL CODE DISPOSITION cont to monitor in Tele possible discharge in next 1-2 days if pt continues to do well Vital Signs: Date Time Temp Pulse Resp B/P Pulse Ox O2 Delivery O2 Flow Rate FiO2 05/20/16 16:17 78 170/115 05/20/16 15:15 Room Air 05/20/16 15:04 36.5 78 18 162/105 100 Room Air 05/20/16 12:20 Room Air 05/20/16 11:59 36.8 98 16 139/98 98 Room Air 05/20/16 08:30 Room Air 05/20/16 08:26 36.7 75 16 159/98 98 Room Air 05/20/16 04:00 Room Air 05/20/16 03:40 37.0 81 18 148/91 96 Room Air 05/19/16 23:59 Room Air 05/19/16 23:26 37.0 85 18 150/83 97 Room Air 05/19/16 20:35 78 188/113 05/19/16 20:00 Room Air 05/19/16 19:20 37.3 77 18 171/122 96 Room Air Lab Results: Results Past 24 Hours Test 05/20/16 06:20 Range/Units Total Bilirubin 0.5 0.2-1 mg/dl Direct Bilirubin 0.1 0-0.2 mg/dl Aspartate Amino Transf (AST/SGOT) 24 15-37 U/L Alanine Aminotransferase (ALT/SGPT) 39 12-78 U/L Alkaline Phosphatase 73 45-117 U/L Total Protein 7.0 6.4-8.2 gm/dl Albumin 3.0 3.4-5.0 gm/dl
[2016-05-20] VITALS (8 sets, daily range): BP systolic 139–202; BP diastolic 91–115; PULSE 74–98; TEMP 36.3–37.2; O2SAT 96–100
[2016-05-20] MEDS: LORAZEPAM 2 MG/ML 1 ML VIAL IV SCH ×7 (00:33→18:01)
[2016-05-20] MEDS: CHECK CLONIDINE PATCH PLACEMENT SCH ×4 (08:34→23:30)
[2016-05-20] MEDS: DOXYCYCLINE HYCLATE 100 MG CAP PO SCH ×2 (08:36→20:30)
[2016-05-20] MEDS: THIAMINE HCL 100 MG TAB PO SCH (08:36)
[2016-05-20] MEDS: ENOXAPARIN 40 MG/0.4 ML SYR SQ SCH (08:36)
[2016-05-20] MEDS: DOCUSATE SODIUM 100 MG CAP PO SCH ×2 (08:36→20:29)
[2016-05-20] MEDS: MULTIVITAMIN TAB PO SCH (08:36)
[2016-05-20] MEDS: NICOTINE 14 MG/24 HR TDSY TD SCH (08:36)
[2016-05-20] MEDS ORDERED: GABAPENTIN 600MG X1 DOSE PO SCH (12:00)
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
[2016-05-20] MEDS: LABETALOL HCL IV 5 MG/ML 20ML IV PRN (16:30)
[2016-05-20] MEDS ORDERED: NURSING DECISION MEDICATION ORDER SCH (19:15)
[2016-05-20] MEDS ORDERED: CLONIDINE HCL 0.1 MG TAB PO PRN ×2 (19:30→20:00)
--- NOTE | 2016-05-20 20:37 | Progress Note ---
Internal Med Progress Note Date of Service: May 20, 2016. Provider Documentation: SUBJECTIVE: continues to feel better no evidence of withdrawal , Sz activity since admission Family members -Mother /father /sister visiting pt given list of Alcohol rehab in [place] updated Pt and Family that his Lamictal dose has been adjusted needs to be followed with Neurology needs complete abstinence form alcohol OBJECTIVE: Vital Signs-as noted below Exam: General-awake and alert Eyes-sclera non icteric , PERRLA/EOMI ENT-dry oral mucosa , Lungs-clear to auscultate, no wheeze or rales Heart-regular , no JVD , no carotid bruit , no lower ext edema Abdomen-soft, non tender Extremities-no rash or deformity Neuro-no focal neurological deficit , mild tremors on hands Lab data as noted below. ASSESSMENT & PLAN: ALTERED MENTAL STATUS /SEIZURE /POSSIBLE ALCOHOL WITHDRAWAL - resolved awake and alert now - -presented with confusion Severely tremulous, disoriented in the ED -had seizure , possible alcohol withdrawal , concern for underlying seizure disorder presented with Anion gap > 20 with Hco3 13 , possible due to withdrawal from alcohol required Precedex gtt in ICU metabolic acidosis resolved with IV hydration CT head negative for CVA EEG -no active seizure episode Lamictal Dose adjusted pt remains stable to transfer to medical floor SEIZURE DISORDER/WITH WITHDRAWAL SEIZURE EEG -no epileptogenic activity -was on Lamictal 100 mg PO BID ( hx sz disorder ) dose increased to 150 mg PO BID -seizure precautions -appreciate neurology eval pt was not on adequate antiseizure dose -having frequent breakthrough seizures pt will continue with Lamictal 150 mg PO BID for 1 week then increase dose to 200 mg PO BID -cont 1 week and increased to maintenance dose of 250 mg PO BID pt will continue to have follow up with his Neurology in [place] pt should not be allowed to drive till his Seizure is well controlled ( no Sz in 6 months /Neurology eval and clearance to Drive ) HYPERTENSIVE URGENCY BP has improved -likely secondary to alcohol withdrawal -on clonidine patch IV Labetalol PRN ELEVATED ANION GAP/ LOW BICARB resolved due to withdrawal seizure -AG 24, Bicarb 13 -resolved with IV fluids-AG ~8 .Bicarb 25 monitor electrolytes TOBACCO ABUSE -Nicotine patch ordered DVT PROPHYLAXIS: SCDs CODE STATUS: FULL CODE DISPOSITION possible discharge in next 1-2 days if pt continues to do well Vital Signs: Date Time Temp Pulse Resp B/P Pulse Ox O2 Delivery O2 Flow Rate FiO2 05/21/16 07:45 97 Room Air 05/21/16 07:12 36.8 84 18 145/83 97 05/21/16 00:00 36.8 78 18 156/104 96 Room Air 05/21/16 00:00 Room Air 05/20/16 21:46 37.2 79 18 172/105 96 Room Air 05/20/16 19:30 36.3 74 20 202/113 98 Room Air 05/20/16 19:12 172/105 Lab Results: Results Past 24 Hours Test 05/21/16 05:45 Range/Units Total Bilirubin 0.5 0.2-1 mg/dl Direct Bilirubin 0.1 0-0.2 mg/dl Aspartate Amino Transf (AST/SGOT) 20 15-37 U/L Alanine Aminotransferase (ALT/SGPT) 34 12-78 U/L Alkaline Phosphatase 69 45-117 U/L Total Protein 7.1 6.4-8.2 gm/dl Albumin 3.0 3.4-5.0 gm/dl
[2016-05-20] MEDS ORDERED: LORAZEPAM INJ 1 MG in SYRINGE 0.5 ML IV PRN (20:45)
[2016-05-20] MEDS: LORAZEPAM INJ 2 MG in SYRINGE 1 ML IV SCH ×2 (21:04→23:29)
[2016-05-21] VITALS: BP 156/104; PULSE 78; TEMP 36.8; O2SAT 96
[2016-05-21] MEDS: LORAZEPAM INJ 2 MG in SYRINGE 1 ML IV SCH ×8 (03:00→23:42)
[2016-05-21 07:12] VITALS: BP 145/83; PULSE 84; TEMP 36.8; O2SAT 97
[2016-05-21 07:45] VITALS: O2SAT 97
[2016-05-21] MEDS: NICOTINE 14 MG/24 HR TDSY TD SCH (08:20)
[2016-05-21] MEDS: THIAMINE HCL 100 MG TAB PO SCH (08:20)
[2016-05-21] MEDS: DOCUSATE SODIUM 100 MG CAP PO SCH ×2 (08:20→20:12)
[2016-05-21] MEDS: ENOXAPARIN 40 MG/0.4 ML SYR SQ SCH (08:21)
[2016-05-21] MEDS: DOXYCYCLINE HYCLATE 100 MG CAP PO SCH ×2 (08:21→20:12)
[2016-05-21] MEDS: CHECK CLONIDINE PATCH PLACEMENT SCH ×3 (08:21→23:42)
[2016-05-21] MEDS: MULTIVITAMIN TAB PO SCH (08:21)
[2016-05-21] MEDS ORDERED: GABAPENTIN 600MG X1 DOSE PO SCH (12:00)
[2016-05-21 15:55] VITALS: BP 133/83; PULSE 86; TEMP 36.8; O2SAT 96
--- NOTE | 2016-05-21 17:57 | Progress Note ---
Internal Med Progress Note Date of Service: May 21, 2016. Provider Documentation: SUBJECTIVE: resting comfortably received a dose of iv Ativan today no shaking says eating ok OBJECTIVE: Vital Signs-as noted below Exam: General-alert and oriented. Not in distress ENT-normal hearing Neck-no neck masses Lungs-cta b/l no wheezing no crackles Heart-s1 and s2 heard, regular rate and rhythm no murmurs Abdomen-soft bowel sounds present non tender no distension Extremities-no edema no erythema Neuro-alert and awake moves extremities Lab data as noted below. ASSESSMENT & PLAN: ALTERED MENTAL STATUS /SEIZURE /POSSIBLE ALCOHOL WITHDRAWAL - resolved awake and alert now CT head negative for CVA EEG -no active seizure episode Lamictal Dose adjusted ativan prn plan for rehab? SEIZURE DISORDER/WITH WITHDRAWAL SEIZURE EEG -no epileptogenic activity was on Lamictal 100 mg PO BID ( hx sz disorder ) dose increased to 150 mg PO BID further increase of Lamictal as per neurology recommendations pt needs to have follow up with his Neurology in [place] pt should not be allowed to drive till his Seizure is well controlled ( no Sz in 6 months /Neurology eval and clearance to Drive ) HYPERTENSIVE URGENCY BP has improved most likely secondary to alcohol withdrawal on clonidine patch IV Labetalol PRN ELEVATED ANION GAP/ LOW BICARB resolved due to withdrawal seizure TOBACCO ABUSE Nicotine patch ordered DVT PROPHYLAXIS: SCDs CODE STATUS: FULL CODE DISPOSITION possible d/c in 1-2 days Vital Signs: Date Time Temp Pulse Resp B/P Pulse Ox O2 Delivery O2 Flow Rate FiO2 05/21/16 15:55 36.8 86 18 133/83 96 Room Air 05/21/16 07:45 97 Room Air 05/21/16 07:12 36.8 84 18 145/83 97 05/21/16 00:00 36.8 78 18 156/104 96 Room Air 05/21/16 00:00 Room Air 05/20/16 21:46 37.2 79 18 172/105 96 Room Air 05/20/16 19:30 36.3 74 20 202/113 98 Room Air 05/20/16 19:12 172/105 Lab Results: Results Past 24 Hours Test 05/21/16 05:45 Range/Units Total Bilirubin 0.5 0.2-1 mg/dl Direct Bilirubin 0.1 0-0.2 mg/dl Aspartate Amino Transf (AST/SGOT) 20 15-37 U/L Alanine Aminotransferase (ALT/SGPT) 34 12-78 U/L Alkaline Phosphatase 69 45-117 U/L Total Protein 7.1 6.4-8.2 gm/dl Albumin 3.0 3.4-5.0 gm/dl
[2016-05-22] VITALS (7 sets, daily range): BP systolic 127–167; BP diastolic 79–131; PULSE 77–103; TEMP 36.6–36.8; O2SAT 95–98
[2016-05-22] MEDS: LORAZEPAM INJ 2 MG in SYRINGE 1 ML IV SCH ×3 (03:27→08:23)
[2016-05-22 07:15] LABS: HEMATOCRIT 36.1 % (42-52); MEAN CELL VOLUME 109.4 fL (80-100); MEAN CORPUSCULAR HEMOGLOBIN 36.7 pg (25-34); MEAN CORPUSCULAR HGB CONC 33.5 g/dl (32-36); MEAN PLATELET VOLUME 9.5 fL (7.4-10.4); PLATELET COUNT 484 K/uL (130-400); WHITE BLOOD COUNT 6.35 K/uL (4.8-10.8)
[2016-05-22 07:52] LABS: BUN/CREATININE RATIO 9.8 (10-20); CREATININE 0.81 mg/dl (0.60-1.40); MAGNESIUM 2.2 mg/dl (1.8-2.4); POTASSIUM 3.8 mmol/L (3.5-5.1)
[2016-05-22 07:53] LABS: PHOSPHORUS 3.9 mg/dl (2.5-4.9)
[2016-05-22] MEDS: DOXYCYCLINE HYCLATE 100 MG CAP PO SCH ×2 (08:22→21:02)
[2016-05-22] MEDS: MULTIVITAMIN TAB PO SCH (08:22)
[2016-05-22] MEDS: DOCUSATE SODIUM 100 MG CAP PO SCH ×2 (08:22→20:00)
[2016-05-22] MEDS: THIAMINE HCL 100 MG TAB PO SCH (08:22)
[2016-05-22] MEDS: NICOTINE 14 MG/24 HR TDSY TD SCH (08:22)
[2016-05-22] MEDS: ENOXAPARIN 40 MG/0.4 ML SYR SQ SCH (08:23)
[2016-05-22] MEDS: CHECK CLONIDINE PATCH PLACEMENT SCH ×3 (08:23→23:45)
[2016-05-22 08:26] LABS: BASO % 0.8 %; BASO ABS # 0.05 K/uL (0-0.2); COMPLETE YES; EOS % 1.9 %; IG% 0.6 %; LYMPH ABS # 1.84 K/uL (1.2-3.4); MONO % 16.9 %; NEUT % 50.8 %
[2016-05-22] MEDS ORDERED: LORAZEPAM 1 MG TAB PO PRN (08:45)
--- NOTE | 2016-05-22 17:03 | Progress Note ---
Internal Med Progress Note Date of Service: May 22, 2016. Provider Documentation: SUBJECTIVE: seems comfortable family in room eating ok slept fine want to be discharged OBJECTIVE: Vital Signs-as noted below Exam: General-alert and oriented. Not in distress ENT-normal hearing Neck-no neck masses Lungs-cta b/l no wheezing no crackles Heart-s1 and s2 heard, regular rate and rhythm no murmurs Abdomen-soft bowel sounds present non tender no distension Extremities-no edema no erythema Neuro-alert and awake moves extremities Lab data as noted below. ASSESSMENT & PLAN: ALTERED MENTAL STATUS /SEIZURE /POSSIBLE ALCOHOL WITHDRAWAL - resolved awake and alert now CT head negative for CVA EEG -no active seizure episode Lamictal Dose adjusted changed to po Ativan prn today plan for out patient rehab SEIZURE DISORDER/WITH WITHDRAWAL SEIZURE EEG -no epileptogenic activity was on Lamictal 100 mg PO BID ( hx sz disorder ) dose increased to 150 mg PO BID further increase of Lamictal as per neurology recommendations pt needs to have follow up with his Neurology in [place] pt should not be allowed to drive till his Seizure is well controlled ( no Sz in 6 months /Neurology eval and clearance to Drive ) stable HYPERTENSIVE URGENCY BP has improved most likely secondary to alcohol withdrawal clonidine prn will monitor ELEVATED ANION GAP/ LOW BICARB resolved due to withdrawal seizure TOBACCO ABUSE Nicotine patch ordered DVT PROPHYLAXIS: SCDs CODE STATUS: FULL CODE DISPOSITION possible d/c in 1-2 days Vital Signs: Date Time Temp Pulse Resp B/P Pulse Ox O2 Delivery O2 Flow Rate FiO2 05/22/16 16:02 36.6 103 16 138/96 96 Room Air 05/22/16 10:19 149/88 05/22/16 08:00 96 Room Air 05/22/16 07:23 36.8 77 16 144/92 96 Room Air 05/22/16 01:00 18 127/79 95 Room Air 05/22/16 00:31 36.7 77 18 167/131 98 Room Air 05/22/16 00:00 Room Air 05/21/16 19:15 Room Air Lab Results: Results Past 24 Hours Test 05/22/16 06:35 Range/Units White Blood Count 6.35 4.8-10.8 K/uL Red Blood Count 3.30 4.7-6.1 M/uL Hemoglobin 12.1 14.0-18.0 g/dL Hematocrit 36.1 42-52 % Mean Corpuscular Volume 109.4 80-100 fL Mean Corpuscular Hemoglobin 36.7 25-34 pg Mean Corpuscular Hemoglobin Concent 33.5 32-36 g/dl Platelet Count 484 130-400 K/uL Mean Platelet Volume 9.5 7.4-10.4 fL Neutrophils (%) (Auto) 50.8 % Lymphocytes (%) (Auto) 29.0 % Monocytes (%) (Auto) 16.9 % Eosinophils (%) (Auto) 1.9 % Basophils (%) (Auto) 0.8 % Neutrophils # (Auto) 3.23 1.4-6.5 K/uL Lymphocytes # (Auto) 1.84 1.2-3.4 K/uL Monocytes # (Auto) 1.07 0.11-0.59 K/uL Eosinophils # (Auto) 0.12 0-0.5 K/uL Basophils # (Auto) 0.05 0-0.2 K/uL RDW Standard Deviation 66.1 36.4-46.3 fL RDW Coefficient of Variation 16.6 11.5-14.5 % Immature Granulocyte % (Auto) 0.6 % Immature Granulocyte # (Auto) 0.04 0.00-0.02 K/uL Sodium Level 141 136-145 mmol/L Potassium Level 3.8 3.5-5.1 mmol/L Chloride Level 105 98-107 mmol/L Carbon Dioxide Level 28 21-32 mmol/L Anion Gap 8.0 3-11 mmol/L Blood Urea Nitrogen 8 7-18 mg/dl Creatinine 0.81 0.60-1.40 mg/dl Est Creatinine Clear Calc Drug Dose 126.4 ml/min Estimated GFR () 129.8 Estimated GFR (Non- 112.0 BUN/Creatinine Ratio 9.8 10-20 Random Glucose 83 70-99 mg/dl Calcium Level 9.0 8.5-10.1 mg/dl Phosphorus Level 3.9 2.5-4.9 mg/dl Magnesium Level 2.2 1.8-2.4 mg/dl
[2016-05-22] MEDS: CLONIDINE HCL 0.1 MG TAB PO PRN (21:08)
[2016-05-23] VITALS (8 sets, daily range): BP systolic 136–170; BP diastolic 84–121; PULSE 76–100; TEMP 36.8; O2SAT 95–97
[2016-05-23 06:56] LABS: BASO % 0.5 %; BASO ABS # 0.04 K/uL (0-0.2); EOS % 1.7 %; HEMATOCRIT 38.8 % (42-52); IG% 1.2 %; LYMPH % 26.9 %; LYMPH ABS # 2.03 K/uL (1.2-3.4); MEAN CELL VOLUME 111.8 fL (80-100); MEAN CORPUSCULAR HEMOGLOBIN 37.8 pg (25-34); MEAN CORPUSCULAR HGB CONC 33.8 g/dl (32-36); MEAN PLATELET VOLUME 9.7 fL (7.4-10.4); MONO % 17.4 %; NEUT % 52.3 %; PLATELET COUNT 518 K/uL (130-400); RED BLOOD COUNT 3.47 M/uL (4.7-6.1); WHITE BLOOD COUNT 7.55 K/uL (4.8-10.8)
[2016-05-23 07:22] LABS: BUN/CREATININE RATIO 8.4 (10-20); CALCIUM 9.5 mg/dl (8.5-10.1); CREATININE 0.95 mg/dl (0.60-1.40); MAGNESIUM 2.5 mg/dl (1.8-2.4); POTASSIUM 4.2 mmol/L (3.5-5.1)
[2016-05-23] MEDS ORDERED: MIDAZOLAM HCL 5 MG/ML 2ML VIAL IV ONE (07:47)
[2016-05-23 08:11] LABS: COMPLETE YES
[2016-05-23] MEDS: MULTIVITAMIN TAB PO SCH (08:28)
[2016-05-23] MEDS: DOXYCYCLINE HYCLATE 100 MG CAP PO SCH ×2 (08:28→20:26)
[2016-05-23] MEDS: THIAMINE HCL 100 MG TAB PO SCH (08:28)
[2016-05-23] MEDS: CHECK CLONIDINE PATCH PLACEMENT SCH ×3 (08:28→23:37)
[2016-05-23] MEDS: DOCUSATE SODIUM 100 MG CAP PO SCH ×2 (08:28→20:23)
[2016-05-23] MEDS: NICOTINE 14 MG/24 HR TDSY TD SCH (08:29)
[2016-05-23] MEDS: ENOXAPARIN 40 MG/0.4 ML SYR SQ SCH (08:29)
[2016-05-23] MEDS ORDERED: FLV1 PO (15:21)
[2016-05-23] MEDS ORDERED: MULT-589 PO (15:21)
[2016-05-23] MEDS ORDERED: METO25TA56 PO (15:21)
[2016-05-23] MEDS ORDERED: THM100 PO (15:21)
[2016-05-23] MEDS ORDERED: LAMO100T16 PO (15:21)
--- NOTE | 2016-05-23 15:24 | Discharge Instructions ---
Discharge Instructions Date of Service May 23, 2016. Admission Reason for Admission: Alcohol Withdrawal, Seizure Discharge Discharge Diagnosis / Problem: ALOCHOL WITHDRAWAL, SEIZURE Discharge Goals Goal(s): Decrease discomfort, Improve function Activity Recommendations Activity Limitations: resume your previous activity . Instructions / Follow-Up Instructions / Follow-Up FOLLOWUP WITH FAMILY DOCTOR IN ONE WEEK FOLLOWUP WITH NEUROLOGY IN 1-2 WEEKS. BLOOD PRESSURE FOLLOWUP WITH FAMILY DOCTOR. NOT TO STOP TAKING BLOOD PRESSURE MEDICATION UNLESS ADVISED BY FAMILY DOCTOR. SUDDEN STOP OF BLOOD PRESSURE MEDICATION CAN CAUSE REBOUND HIGH BLOOD PRESSURES AND CAN LEAD TO STROKES OR HEART ATTACKS. MEDICATIONS: LAMICTAL 200MG PO TWICE DAILY FOR ONE WEEK THEN LAMICTAL 250MG PO TWICE DAILY. LOPRESSOR 25MG PO TWICE DAILY FOR BLOOD PRESSURE. THIAMINE FOLIC ACID MULTI VITAMINS. Current Hospital Diet Patient's current hospital diet: Regular Diet Discharge Diet Recommended Diet: Regular Diet, AHA Diet (Heart Healthy) Pending Studies Studies pending at discharge: no Medical Emergencies . Who to Call and When: Medical Emergencies: If at any time you feel your situation is an emergency, please call 911 immediately. . Non-Emergent Contact Non-Emergency issues call your: Primary Care Provider . . "Provider Documentation" section prepared by Shahzad Steward. VTE Core Measure Inpt VTE Proph given/why not?: Treatment not indicated
[2016-05-23] MEDS ORDERED: CLONIDINE HCL 0.1 MG TAB PO ONE (15:45)
--- NOTE | 2016-05-23 16:49 | Progress Note ---
Internal Med Progress Note Date of Service: May 23, 2016. Provider Documentation: SUBJECTIVE: patient is comfortable he wants to be discharged says going to follow with pcp at [place] afebrile OBJECTIVE: Vital Signs-as noted below Exam: General-alert and oriented. Not in distress ENT-normal hearing Neck-no neck masses Lungs-cta b/l no wheezing no crackles Heart-s1 and s2 heard, regular rate and rhythm no murmurs Abdomen-soft bowel sounds present non tender no distension Extremities-no edema no erythema Neuro-alert and awake moves extremities Lab data as noted below. ASSESSMENT & PLAN: ALTERED MENTAL STATUS /SEIZURE /POSSIBLE ALCOHOL WITHDRAWAL - resolved awake and alert now CT head negative for CVA EEG -no active seizure episode Lamictal Dose adjusted changed to po Ativan prn today plan for out patient rehab stable SEIZURE DISORDER/WITH WITHDRAWAL SEIZURE EEG -no epileptogenic activity was on Lamictal 100 mg PO BID ( hx sz disorder ) dose increased to 150 mg PO BID further increase of Lamictal as per neurology recommendations discharged on Lamictal 200mg po bid for one week and then Lamictal 250mg po bid. pt needs to have follow up with his Neurology in [place] pt should not be allowed to drive till his Seizure is well controlled ( no Sz in 6 months /Neurology eval and clearance to Drive ) stable HYPERTENSIVE URGENCY BP has improved most likely secondary to alcohol withdrawal clonidine prn still elevated at discharge discharged on Lopressor 25mg bid and advised to closely followup with family doctor. ELEVATED ANION GAP/ LOW BICARB resolved due to withdrawal seizure TOBACCO ABUSE Nicotine patch ordered Discharged home Vital Signs: Date Time Temp Pulse Resp B/P Pulse Ox O2 Delivery O2 Flow Rate FiO2 05/23/16 16:28 84 164/121 161/100 05/23/16 15:53 36.8 87 16 97 Room Air 05/23/16 15:20 Room Air 05/23/16 15:17 158/108 05/23/16 15:16 36.8 87 16 161/101 97 05/23/16 08:20 Room Air 05/23/16 07:30 36.8 100 18 138/85 95 Room Air 05/23/16 00:00 Room Air 05/22/16 23:00 36.7 90 18 148/91 96 Room Air Lab Results: Results Past 24 Hours Test 05/23/16 06:29 Range/Units White Blood Count 7.55 4.8-10.8 K/uL Red Blood Count 3.47 4.7-6.1 M/uL Hemoglobin 13.1 14.0-18.0 g/dL Hematocrit 38.8 42-52 % Mean Corpuscular Volume 111.8 80-100 fL Mean Corpuscular Hemoglobin 37.8 25-34 pg Mean Corpuscular Hemoglobin Concent 33.8 32-36 g/dl Platelet Count 518 130-400 K/uL Mean Platelet Volume 9.7 7.4-10.4 fL Neutrophils (%) (Auto) 52.3 % Lymphocytes (%) (Auto) 26.9 % Monocytes (%) (Auto) 17.4 % Eosinophils (%) (Auto) 1.7 % Basophils (%) (Auto) 0.5 % Neutrophils # (Auto) 3.95 1.4-6.5 K/uL Lymphocytes # (Auto) 2.03 1.2-3.4 K/uL Monocytes # (Auto) 1.31 0.11-0.59 K/uL Eosinophils # (Auto) 0.13 0-0.5 K/uL Basophils # (Auto) 0.04 0-0.2 K/uL RDW Standard Deviation 67.4 36.4-46.3 fL RDW Coefficient of Variation 16.6 11.5-14.5 % Immature Granulocyte % (Auto) 1.2 % Immature Granulocyte # (Auto) 0.09 0.00-0.02 K/uL Macrocytosis PRESENT Sodium Level 143 136-145 mmol/L Potassium Level 4.2 3.5-5.1 mmol/L Chloride Level 107 98-107 mmol/L Carbon Dioxide Level 29 21-32 mmol/L Anion Gap 7.0 3-11 mmol/L Blood Urea Nitrogen 8 7-18 mg/dl Creatinine 0.95 0.60-1.40 mg/dl Est Creatinine Clear Calc Drug Dose 107.8 ml/min Estimated GFR () 116.4 Estimated GFR (Non- 100.4 BUN/Creatinine Ratio 8.4 10-20 Random Glucose 82 70-99 mg/dl Calcium Level 9.5 8.5-10.1 mg/dl Magnesium Level 2.5 1.8-2.4 mg/dl
[2016-05-23] MEDS: METOPROLOL TARTRATE 25 MG TAB PO SCH (20:25)
[2016-05-23] MEDS: CLONIDINE HCL 0.1 MG TAB PO PRN (20:28)
[2016-05-24 00:05] VITALS: BP 159/97; PULSE 82; TEMP 36.8; O2SAT 98
[2016-05-24 07:47] VITALS: BP 153/91; PULSE 81; TEMP 36.8; O2SAT 99
[2016-05-24 08:00] LABS: BASO % 1.1 %; BASO ABS # 0.09 K/uL (0-0.2); COMPLETE YES; EOS % 1.5 %; HEMATOCRIT 39.2 % (42-52); LYMPH % 28.6 %; LYMPH ABS # 2.36 K/uL (1.2-3.4); MEAN CELL VOLUME 109.5 fL (80-100); MEAN CORPUSCULAR HEMOGLOBIN 36.9 pg (25-34); MEAN CORPUSCULAR HGB CONC 33.7 g/dl (32-36); MEAN PLATELET VOLUME 9.4 fL (7.4-10.4); MONO % 15.6 %; NEUT % 52.2 %; PLATELET COUNT 608 K/uL (130-400); RED BLOOD COUNT 3.58 M/uL (4.7-6.1); WHITE BLOOD COUNT 8.26 K/uL (4.8-10.8)
[2016-05-24] MEDS: THIAMINE HCL 100 MG TAB PO SCH (08:02)
[2016-05-24] MEDS: DOCUSATE SODIUM 100 MG CAP PO SCH (08:02)
[2016-05-24] MEDS: DOXYCYCLINE HYCLATE 100 MG CAP PO SCH (08:02)
[2016-05-24] MEDS: METOPROLOL TARTRATE 25 MG TAB PO SCH (08:03)
[2016-05-24] MEDS: NICOTINE 14 MG/24 HR TDSY TD SCH (08:04)
[2016-05-24] MEDS: MULTIVITAMIN TAB PO SCH (08:04)
[2016-05-24] MEDS: ENOXAPARIN 40 MG/0.4 ML SYR SQ SCH (08:05)
[2016-05-24] MEDS: CHECK CLONIDINE PATCH PLACEMENT SCH (08:21)
[2016-05-24 08:34] LABS: BUN/CREATININE RATIO 8.1 (10-20); CALCIUM 9.7 mg/dl (8.5-10.1); CREATININE 0.9 mg/dl (0.60-1.40); MAGNESIUM 2.6 mg/dl (1.8-2.4); POTASSIUM 4.4 mmol/L (3.5-5.1)
[2016-05-24 08:59] VITALS: BP 153/91; PULSE 81; TEMP 36.8; O2SAT 99
--- NOTE | 2016-05-24 18:18 | Progress Note ---
Internal Med Progress Note Date of Service: May 24, 2016. Provider Documentation: SUBJECTIVE: patient is comfortable no complaints afebrile awaiting to be discharged OBJECTIVE: Vital Signs-as noted below Exam: General-alert and oriented. Not in distress ENT-normal hearing Neck-no neck masses Lungs-cta b/l no wheezing no crackles Heart-s1 and s2 heard, regular rate and rhythm no murmurs Abdomen-soft bowel sounds present non tender no distension Extremities-no edema no erythema Neuro-alert and awake moves extremities Lab data as noted below. ASSESSMENT & PLAN: ALTERED MENTAL STATUS /SEIZURE /POSSIBLE ALCOHOL WITHDRAWAL - resolved awake and alert now CT head negative for CVA EEG -no active seizure episode Lamictal Dose adjusted changed to po Ativan prn today plan for out patient rehab in [place] stable SEIZURE DISORDER/WITH WITHDRAWAL SEIZURE EEG -no epileptogenic activity was on Lamictal 100 mg PO BID ( hx sz disorder ) dose increased to 150 mg PO BID further increase of Lamictal as per neurology recommendations discharged on Lamictal 200mg po bid for one week and then Lamictal 250mg po bid. pt needs to have follow up with his Neurology in [place] pt should not be allowed to drive till his Seizure is well controlled ( no Sz in 6 months /Neurology eval and clearance to Drive ) stable HYPERTENSIVE URGENCY BP has improved most likely secondary to alcohol withdrawal clonidine prn still elevated at discharge discharged on Lopressor 25mg bid and advised to closely followup with family doctor for further adjsutmnets advised not to sop medication on his own. ELEVATED ANION GAP/ LOW BICARB resolved due to withdrawal seizure TOBACCO ABUSE Nicotine patch ordered Discharged home Vital Signs: Date Time Temp Pulse Resp B/P Pulse Ox O2 Delivery O2 Flow Rate FiO2 05/24/16 08:59 36.8 81 16 99 Room Air 05/24/16 08:00 Room Air 05/24/16 07:47 36.8 81 16 153/91 99 05/24/16 00:05 36.8 82 20 159/97 98 Room Air 05/24/16 00:00 Room Air 05/23/16 21:21 76 136/84 05/23/16 20:25 Room Air 05/23/16 20:25 161/108 Lab Results: Results Past 24 Hours Test 05/24/16 07:39 Range/Units White Blood Count 8.26 4.8-10.8 K/uL Red Blood Count 3.58 4.7-6.1 M/uL Hemoglobin 13.2 14.0-18.0 g/dL Hematocrit 39.2 42-52 % Mean Corpuscular Volume 109.5 80-100 fL Mean Corpuscular Hemoglobin 36.9 25-34 pg Mean Corpuscular Hemoglobin Concent 33.7 32-36 g/dl Platelet Count 608 130-400 K/uL Mean Platelet Volume 9.4 7.4-10.4 fL Neutrophils (%) (Auto) 52.2 % Lymphocytes (%) (Auto) 28.6 % Monocytes (%) (Auto) 15.6 % Eosinophils (%) (Auto) 1.5 % Basophils (%) (Auto) 1.1 % Neutrophils # (Auto) 4.32 1.4-6.5 K/uL Lymphocytes # (Auto) 2.36 1.2-3.4 K/uL Monocytes # (Auto) 1.29 0.11-0.59 K/uL Eosinophils # (Auto) 0.12 0-0.5 K/uL Basophils # (Auto) 0.09 0-0.2 K/uL RDW Standard Deviation 66.8 36.4-46.3 fL RDW Coefficient of Variation 16.5 11.5-14.5 % Immature Granulocyte % (Auto) 1.0 % Immature Granulocyte # (Auto) 0.08 0.00-0.02 K/uL Sodium Level 142 136-145 mmol/L Potassium Level 4.4 3.5-5.1 mmol/L Chloride Level 106 98-107 mmol/L Carbon Dioxide Level 27 21-32 mmol/L Anion Gap 9.0 3-11 mmol/L Blood Urea Nitrogen 7 7-18 mg/dl Creatinine 0.90 0.60-1.40 mg/dl Est Creatinine Clear Calc Drug Dose 113.8 ml/min Estimated GFR () 124.3 Estimated GFR (Non- 107.2 BUN/Creatinine Ratio 8.1 10-20 Random Glucose 81 70-99 mg/dl Calcium Level 9.7 8.5-10.1 mg/dl Magnesium Level 2.6 1.8-2.4 mg/dl
--- NOTE | 2016-05-24 18:21 | Discharge Summary ---
Discharge Summary Date of Service May 24, 2016. Discharge Summary Admission Date: May 16, 2016 at 18:55 Discharge Date: May 24, 2016 Discharge Disposition: Home Principal Diagnosis: seizures alcohol withdrawal htn urgency Secondary Diagnoses/Problems: 1) Seizures Status: Chronic Procedures: CXR: Nasogastric tube placed within the mid stomach CT HEAD: No acute intracranial abnormality. BRAIN MRI: No change from the prior study. No acute findings. No evidence of intracranial mass. No evidence of acute or subacute infarction. EEG UNREMARKABLE Consultations: NEUROLOGY CRITICAL CARE Medication Reconciliation New Medications: Lamotrigine (Lamictal) 100 Mg Tab 200 MG PO UD for 30 Days, TAB 2 Refills LAMICTAL 200 MG PO TWICE DAILY FOR ONE WEEK THEN LAMICTAL 250 MG PO TWICE DAILY Metoprolol Tartrate (Lopressor) (Lopressor) 25 Mg Tab 1 TAB PO BID for 30 Days, #60 TAB 2 Refills Folic Acid (Folic Acid) 1 Mg Tab 1 MG PO QAM, #30 TAB Multivitamins (Daily Joshua) 1 Tab Tab 1 TAB PO QAM, #30 TAB Thiamine HCl (Vitamin B-1) 100 Mg Tab 100 MG PO QAM, #30 TAB Discontinued Medications: Lamotrigine (Lamictal) 100 Mg Tab 100 MG PO BID, TAB Admission Information HPI (per Admitting provider): Patient seen and examined. 40 year old male with PMHx of Seizures, and alcohol abuse presents to the ED following a seizure prior to arrival. Patient is currently disoriented and history was primarily taken from patient's nurse. Patient is originally from [facility] but lives at [place]. He apparently drinks alcohol heavily since his divorce from his last . He apparently showed up at his parents house unannounced last week and since then his alcohol consumption has been limited. 4 days ago he had a seizure at home. Today he was in the back seat of his parents car when he seized for 1.5 minutes. He was immediately brought to the ED for further evaluation. In the ED he has been severely tremulous, he is not oriented to place. There are reports of hallucinations and paranoia. Family was asked to leave because the patient was becoming severely agitated because he didn't know them. Patient's last drink was apparently last night. He reports drinking 2-4 40s daily. He has a history of DUIs in the past and no longer drives. He reports history of tremors when he has withdrawal previously. He takes Lamictal for seizures and apparently missed a dose 2 weeks ago but has been compliant since then. When seen and examined by me, patient tells story of DUI incident from several years ago. He cannot give any information about the last several days. In the ED patient is tachycardic and hypertensive, Tox screen is negative. AG is >20, bicarb is 13. He received a banana bag, 2mg IV Ativan and a clonidine patch. He continues to be tremulous and agitated. He will be admitted for further workup and treatment. Physical Exam (per Admitting): General Appearance: + pertinent finding (WD/WN 40 year old male tremulous occasionally attempting to get out of bed, no respiratory distress. Security at doorway.) Head: normocephalic, atraumatic Eyes: PERRL, EOMI, sclerae normal ENT: hearing grossly normal, pharynx normal Neck: supple, no JVD Respiratory/Chest: chest non-tender, lungs clear, normal breath sounds, no respiratory distress, no accessory muscle use Cardiovascular: no edema, no gallop, no JVD, no murmur, normal peripheral pulses, + tachycardia (rate 120s) Abdomen/GI: normal bowel sounds, non tender, soft Back: normal inspection, no muscle spasm Extremities/Musculoskelatal: no calf tenderness, normal capillary refill, no pedal edema Neurologic/Psych: + pertinent finding (Alert, disoriented, reports of hallucinations and paranoia by nursing staff, tremulous. No focal defiicts noted ) Skin: normal color, warm/dry, no rash Lymphatic: no adenopathy Hospital Course ALTERED MENTAL STATUS /SEIZURE /POSSIBLE ALCOHOL WITHDRAWAL - resolved awake and alert now CT head negative for CVA EEG -no active seizure episode Lamictal Dose adjusted changed to po Ativan prn today plan for out patient rehab in [place] stable SEIZURE DISORDER/WITH WITHDRAWAL SEIZURE EEG -no epileptogenic activity was on Lamictal 100 mg PO BID ( hx sz disorder ) dose increased to 150 mg PO BID further increase of Lamictal as per neurology recommendations discharged on Lamictal 200mg po bid for one week and then Lamictal 250mg po bid. pt needs to have follow up with his Neurology in [place] pt should not be allowed to drive till his Seizure is well controlled ( no Sz in 6 months /Neurology eval and clearance to Drive ) stable HYPERTENSIVE URGENCY BP has improved most likely secondary to alcohol withdrawal clonidine prn still elevated at discharge discharged on Lopressor 25mg bid and advised to closely followup with family doctor for further adjsutmnets advised not to sop medication on his own. ELEVATED ANION GAP/ LOW BICARB resolved due to withdrawal seizure TOBACCO ABUSE Nicotine patch ordered Discharged home Total time spent on discharge = 35MINUTES This includes examination of the patient, discharge planning, medication reconciliation, and communication with other providers. Discharge Instructions Please take this sheet to every appointment for the next month Discharge Instructions Date of Service May 23, 2016. Admission Reason for Admission: Alcohol Withdrawal, Seizure Discharge Discharge Diagnosis / Problem: ALOCHOL WITHDRAWAL, SEIZURE Discharge Goals Goal(s): Decrease discomfort, Improve function Activity Recommendations Activity Limitations: resume your previous activity . Instructions / Follow-Up Instructions / Follow-Up FOLLOWUP WITH FAMILY DOCTOR IN ONE WEEK FOLLOWUP WITH NEUROLOGY IN 1-2 WEEKS. BLOOD PRESSURE FOLLOWUP WITH FAMILY DOCTOR. NOT TO STOP TAKING BLOOD PRESSURE MEDICATION UNLESS ADVISED BY FAMILY DOCTOR. SUDDEN STOP OF BLOOD PRESSURE MEDICATION CAN CAUSE REBOUND HIGH BLOOD PRESSURES AND CAN LEAD TO STROKES OR HEART ATTACKS. MEDICATIONS: LAMICTAL 200MG PO TWICE DAILY FOR ONE WEEK THEN LAMICTAL 250MG PO TWICE DAILY. LOPRESSOR 25MG PO TWICE DAILY FOR BLOOD PRESSURE. THIAMINE FOLIC ACID MULTI VITAMINS. Current Hospital Diet Patient's current hospital diet: Regular Diet Discharge Diet Recommended Diet: Regular Diet, AHA Diet (Heart Healthy) Pending Studies Studies pending at discharge: no Medical Emergencies . Who to Call and When: Medical Emergencies: If at any time you feel your situation is an emergency, please call 911 immediately. . Non-Emergent Contact Non-Emergency issues call your: Primary Care Provider . . "Provider Documentation" section prepared by Shahzad Steward. VTE Core Measure Inpt VTE Proph given/why not?: Treatment not indicated
== END 2016-05-24 10:10 | disposition home or self-care (01) | DRG 897 ==
LOC: ENRESERVTM → ENRESERVDT → C.EDB 16:18 → C.2T 18:55 → C.MSICU 20:19 → C.2T 05-18 13:29 → C.MS4W 05-20 19:44
PROVIDERS: ADMIT Hospitalist; ATTEND Internal Medicine
DX: F10.231 Alcohol dependence with withdrawal delirium (principal); E87.2 Acidosis; G40.909 Epilepsy, unspecified, not intractable, without status epilepticus; I10 Essential (primary) hypertension; Z79.899 Other long term (current) drug therapy; F17.210 Nicotine dependence, cigarettes, uncomplicated; Z82.49 Family history of ischemic heart disease and other diseases of the circulatory system; F41.9 Anxiety disorder, unspecified

== ENCOUNTER 2021-01-13 12:38 | Inpatient (IN) ==
[2021-01-13] MEDS ORDERED: LORazepam 2 MG/4 ML VIAL IV STA ×3 (12:55→15:15)
[2021-01-13] MEDS ORDERED: SODIUM CHLORIDE 0.9% 1000ML 1,000 ML IV ONE (12:57)
[2021-01-13] MEDS ORDERED: MULTI-VITAMIN INFUSION 10 ML, THIAMINE HCL 100 MG, FOLIC ACID 1 MG in SODIUM CHLORIDE 0... IV ONE (12:59)
--- NOTE | 2021-01-13 13:04 | Emergency Department Note ---
Impression & Plan Delirium tremens, Thrombocytopenia, Alcoholism, Alcohol withdrawal ED Provider Note Name: WILEY CHRISTIANSON Age: 45 Sex: M Arrives Via: Walk-In Informant: Patient (poor historian), Father ED Provider: Amanuel Cardoza MD Chief Complaint: Seizure Impression: As Per Impressions Above Medical Decision Makin yr old male with remote history of seizures and HTN who is seizing on arrival. Resolved but still severely shaky and tremulous thus given Ativan shor tly after arrival. Improved but did requires some further IV ativan. Clearly appears alcoholic though he is denying alcohol use. ETOH returned positive and he is still not open about this. After awakening patient not willing to discuss opening his alcohol use and claims to not know why alcohol would be in his system. He admits to HTN on lisinopril and Seizures years ago on Lamotrigine. Following this worsening tremors but hospitalist evaluating patient and will order further ativan with plan to place in ICU. Patient does not appear septic and I do not feel LP indicated at this time. Electrolytes consistent with alcoholism and he was given IV fluids and Banana bag. Plts low consistent with chronic alcohol use. ETOH 30 though patient still denying he drinks alcohol. CT head is negative. Prior Medical Record and Triage/Nursing Notes reviewed by Me Additional history obtained from chart, father Differentials:Infection, dehydration, metabolic abnormality, hypo/hyperglycemia, electrolyte disturbance, anemia, hypoxia, cardiac sources, intracerebral event, toxicologic, neurologic, as well as other pathologies. Vital Signs: reviewed and remarkable for tachy, htn Interventions: ativan 2mg iv x 2, nss bolus, banana bag iv Labs:Reviewed and remarkable for multiple abnormalities. Imaging:See Below EKG:Per My Interpretation: Indication seiziure: NSR 84 bpm, qtc 505. No Ectopy. No Ischemia. Compared to EKG 05/18/16, no significant changes. Cardiac/Tele Monitoring: Cardiac Monitoring: An Order was placed for continuous cardiac monitoring. The monitor shows a rate of 90 with a normal sinus rhythm. Consults:Dr Delon STEEN Hospitalist Plan: Disposition:Hospitalization. Condition: Fair History of Present Illness:45 yr old male arrives for evaluation of seizures. Patient with history seizures per father arrives for evaluation of worsening seizures this morning. He apparently was his normal self then started seizing. Confused and resolving while father brought to ED, though he seized again in triage. Father denies head injury nor known recent ETOH use. Patient denies symptoms but is quite post ictal and unable to truly give history. No medications prior to arrival but per father patient took his morning medications. ROS: Unable to obtain due to altered mental status Past Medical History:Unable to obtain due to altered mental status Past Surgical History:Unable to obtain due to altered mental status Family History:Unable to obtain due to altered mental status Social History:Unable to obtain due to altered mental status Home Medications:Unable to obtain due to altered mental status Allergies:NKDA Vitals:Blood Pressure: 196/100, Pulse 87, RR 30, T 37.4C, O2 95% on RA Physical Exam: GENERAL: Patient is confused and diaphoretic appearing and in mild distress. Quite tremulous and tired appearing EYES: No scleral icterus, unremarkable pupils. ENT: Mucous membranes moist, no nasal congestion. NECK: No masses appreciated, nomeningismus, trachea is midline. RESPIRATORY: No dyspnea. Clear to auscultation and equal bilaterally. No wheeze, no rhonchi. CARDIOVASCULAR: tachy.No murmurs, rubs, gallops appreciated. GASTROINTESTINAL: Abdomen soft, non-tender, no peritonitis.Bowel sounds positive.No masses appreciated. BACK: No midline tenderness, no CVA tenderness EXTREMITIES: Normal motion all extremities, no cyanosis, no edema. NEUROLOGIC: Confused/post ictal, tremulous, no focal weakness, cranial nerves grossly intact. SKIN: No rash, no jaundice, ++ diaphoresis. PSYCH: Unable to obtain GCS: 12 ED Course: Times/Reassessments: waxing/waning tremors but appears much improved from arrival. Critical Care: I have personally spent 35 minutes of critical care time in the direct management of this patient. Acute DTs with seizures secondary to alcohol withdrawal. This was a life/limb threatening event. This 35 minutes is in excess of all separately billable procedures. Amanuel Cardoza MD Past Med/Surg History Medical History (Updated 01/13/21 @ 17:14 by Amanuel Cardoza MD) Alcoholism Essential hypertension Seizures Surgical History (Updated 01/13/21 @ 15:35 by Bill Jernigan) No pertinent past surgical history Family History (Updated 01/13/21 @ 15:36 by Bill Jernigan) Father Skin cancer of face Denies family history of Alcoholism Seizure disorder Social History (Updated 01/13/21 @ 15:38 by Bill Jernigan) Smoking Status: Never smoker Hx Alcohol Use: Yes Alcohol type: beer, wine and hard liquor Alcohol type Comment: DAILY consumption, mixture of bottle of wine, bottle of liquor, and/or beer Hx Substance Use: No marital status: marital status details: x 2 Current Living Situation: Family Current Living Situation Comment: lives w/ father in [place] current occupational status: 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[place] [facility] How many Children do You have: 0 Feels Safe at Home: Yes Allergies Allergies Allergy/AdvReac Type Severity Reaction Status Date / Time No Known Allergies Allergy Mild Verified 01/13/21 14:44 Home Meds Home Medications Medication Instructions Recorded Confirmed lamotrigine 150 mg tablet 150 mg PO BID 01/13/21 01/13/21 (Lamictal) lisinopril 20 mg tablet (Prinivil) 20 mg PO QAM 01/13/21 01/13/21 Results & Data (ED) Vital Signs Vital Signs - 24 hr 01/13/21 12:46 01/13/21 12:57 01/13/21 12:58 Temperature 37.4 C Temperature Source Oral Pulse Rate 87 77 Pulse Rate from SpO2 Sensor 78 Respiratory Rate 30 H 33 H Respiratory Depth Normal Blood Pressure 196/100 H Blood Pressure Mean 132 Pulse Oximetry 95 94 97 Oxygen Delivery Method Room Air Room Air Oxygen Flow Rate 0 Sepsis Recent Fever Within 48 Hours No Sepsis New/Unexplained Change in Mental Status N/A Sepsis Action Taken by Nursing No Action Required Oxygen Flow Rate - Titration 2 Pulse Oximetry Post Tiitration 97 01/13/21 13:00 01/13/21 14:00 01/13/21 14:30 Temperature Temperature Source Pulse Rate 75 90 103 H Pulse Rate from SpO2 Sensor 74 90 103 H Respiratory Rate 30 H 22 27 H Respiratory Depth Blood Pressure 160/90 H 171/100 H Blood Pressure Mean 113 123 Pulse Oximetry 96 100 94 Oxygen Delivery Method Nasal Cannula Oxygen Flow Rate 2 Sepsis Recent Fever Within 48 Hours Sepsis New/Unexplained Change in Mental Status Sepsis Action Taken by Nursing Oxygen Flow Rate - Titration Pulse Oximetry Post Tiitration 01/13/21 15:00 01/13/21 15:30 Temperature Temperature Source Pulse Rate 107 H 107 H Pulse Rate from SpO2 Sensor 107 H 106 H Respiratory Rate 25 H 16 Respiratory Depth Blood Pressure 165/104 H 163/101 H Blood Pressure Mean 124 121 Pulse Oximetry 95 95 Oxygen Delivery Method Oxygen Flow Rate Sepsis Recent Fever Within 48 Hours Sepsis New/Unexplained Change in Mental Status Sepsis Action Taken by Nursing Oxygen Flow Rate - Titration Pulse Oximetry Post Tiitration Laboratory Data Result diagrams: 01/13/21 13:00 01/13/21 13:00 Lab Results 01/13/21 01/13/21 01/13/21 Range/Units 13:00 13:00 13:13 WBC 6.06 (4.8-10.8) K/uL RBC 3.44 L (4.7-6.1) M/uL Hgb 13.5 L (14.0-18.0) g/dL Hct 40.1 L (42-52) % MCV 116.6 H (80-100) fL MCH 39.2 H (25-34) pg MCHC 33.7 (32-36) g/dL RDW Std Deviation 61.7 H (36.4-46.3) fL RDW Coeff of Amena 14.3 (11.5-14.5) % Plt Count 81 L (130-400) K/uL MPV 11.2 H (7.4-10.4) fL Immature Gran % (Auto) 0.2 % Neut % (Auto) 60.5 % Lymph % (Auto) 27.7 % [place] % (Auto) 10.9 % Eos % (Auto) 0.2 % Baso % (Auto) 0.5 % Neut # (Auto) 3.67 (1.4-6.5) K/uL Lymph # (Auto) 1.68 (1.2-3.4) K/uL [place] # (Auto) 0.66 H (0.11-0.59) K/uL Eos # (Auto) 0.01 (0-0.5) K/uL Baso # (Auto) 0.03 (0-0.2) K/uL Immature Gran # (Auto) 0.01 (0.00-0.02) K/uL Macrocytosis Present PT (9.0-12.0) Seconds INR (0.9-1.1) Sodium 138 (136-145) mmol/L Potassium 2.8 L (3.5-5.1) mmol/L Chloride 98 (98-107) mmol/L Carbon Dioxide 13 L (21-32) mmol/L Anion Gap 27.0 H (3-11) BUN 4 L (7-18) mg/dl Creatinine 0.87 (0.6-1.4) mg/dl Est Cr Clr Drug Dosing Not Reportable Est GFR ( Amer) 122.5 ml/min Est GFR (Non-Af Amer) 105.7 ml/min BUN/Creatinine Ratio 5.1 L (10-20) Glucose 130 H (70-99) mg/dl Calcium 8.7 (8.5-10.1) mg/dl Magnesium 1.7 L (1.8-2.4) mg/dl Total Bilirubin 2.1 H (0.2-1) mg/dl Direct Bilirubin 1.0 H (0-0.2) mg/dl AST 130 H (15-37) U/L ALT 38 (12-78) U/L Alkaline Phosphatase 252 H (45-117) U/L Troponin I < 0.015 (0-0.045) ng/ml Total Protein 10.2 H (6.4-8.2) gm/dl Albumin 4.2 (3.4-5.0) gm/dl Urine Color Urine Appearance (Clear) Urine pH (4.5-7.5) Ur Specific [place] (1.000-1.030) Urine Protein (Negative) Urine Glucose (UA) (Negative) Urine Ketones (Negative) Urine Blood (Negative) Urine Nitrite (Negative) Urine Bilirubin (Negative) Urine Urobilinogen (Negative) Ur Leukocyte Esterase (Negative) Urine WBC (Auto) (0-5) /hpf Urine RBC (Auto) (0-4) /hpf U Hyaline Cast (Auto) (0-5) /lpf U Epithel Cells (Auto) (0-5) /lpf Urine Bacteria (Auto) (Negative) Ethyl Alcohol mg/dL 30.0 H (0-3) mg/dl COVID-19 Eval Order SARS-CoV-2 (PCR) (Negative) 01/13/21 01/13/21 01/13/21 Range/Units 14:04 14:04 15:40 WBC (4.8-10.8) K/uL RBC (4.7-6.1) M/uL Hgb (14.0-18.0) g/dL Hct (42-52) % MCV (80-100) fL MCH (25-34) pg MCHC (32-36) g/dL RDW Std Deviation (36.4-46.3) fL RDW Coeff of Amena (11.5-14.5) % Plt Count (130-400) K/uL MPV (7.4-10.4) fL Immature Gran % (Auto) % Neut % (Auto) % Lymph % (Auto) % [place] % (Auto) % Eos % (Auto) % Baso % (Auto) % Neut # (Auto) (1.4-6.5) K/uL Lymph # (Auto) (1.2-3.4) K/uL [place] # (Auto) (0.11-0.59) K/uL Eos # (Auto) (0-0.5) K/uL Baso # (Auto) (0-0.2) K/uL Immature Gran # (Auto) (0.00-0.02) K/uL Macrocytosis PT (9.0-12.0) Seconds INR (0.9-1.1) Sodium (136-145) mmol/L Potassium (3.5-5.1) mmol/L Chloride (98-107) mmol/L Carbon Dioxide (21-32) mmol/L Anion Gap (3-11) BUN (7-18) mg/dl Creatinine (0.6-1.4) mg/dl Est Cr Clr Drug Dosing Est GFR ( Amer) ml/min Est GFR (Non-Af Amer) ml/min BUN/Creatinine Ratio (10-20) Glucose (70-99) mg/dl Calcium (8.5-10.1) mg/dl Magnesium (1.8-2.4) mg/dl Total Bilirubin (0.2-1) mg/dl Direct Bilirubin (0-0.2) mg/dl AST (15-37) U/L ALT (12-78) U/L Alkaline Phosphatase (45-117) U/L Troponin I (0-0.045) ng/ml Total Protein (6.4-8.2) gm/dl Albumin (3.4-5.0) gm/dl Urine Color Yellow Urine Appearance Clear (Clear) Urine pH 7.0 (4.5-7.5) Ur Specific [place] 1.013 (1.000-1.030) Urine Protein 2+ H (Negative) Urine Glucose (UA) Negative (Negative) Urine Ketones 1+ H (Negative) Urine Blood 1+ H (Negative) Urine Nitrite Negative (Negative) Urine Bilirubin Negative (Negative) Urine Urobilinogen Negative (Negative) Ur Leukocyte Esterase Negative (Negative) Urine WBC (Auto) 0 (0-5) /hpf Urine RBC (Auto) 0-4 (0-4) /hpf U Hyaline Cast (Auto) 0 (0-5) /lpf U Epithel Cells (Auto) 10-20 H (0-5) /lpf Urine Bacteria (Auto) Negative (Negative) Ethyl Alcohol mg/dL (0-3) mg/dl COVID-19 Eval Order Covid19 at [facility] SARS-CoV-2 (PCR) NEGATIVE (Negative) 01/13/21 Range/Units 16:00 WBC (4.8-10.8) K/uL RBC (4.7-6.1) M/uL Hgb (14.0-18.0) g/dL Hct (42-52) % MCV (80-100) fL MCH (25-34) pg MCHC (32-36) g/dL RDW Std Deviation (36.4-46.3) fL RDW Coeff of Amena (11.5-14.5) % Plt Count (130-400) K/uL MPV (7.4-10.4) fL Immature Gran % (Auto) % Neut % (Auto) % Lymph % (Auto) % [place] % (Auto) % Eos % (Auto) % Baso % (Auto) % Neut # (Auto) (1.4-6.5) K/uL Lymph # (Auto) (1.2-3.4) K/uL [place] # (Auto) (0.11-0.59) K/uL Eos # (Auto) (0-0.5) K/uL Baso # (Auto) (0-0.2) K/uL Immature Gran # (Auto) (0.00-0.02) K/uL Macrocytosis PT 11.9 (9.0-12.0) Seconds INR 1.2 H (0.9-1.1) Sodium (136-145) mmol/L Potassium (3.5-5.1) mmol/L Chloride (98-107) mmol/L Carbon Dioxide (21-32) mmol/L Anion Gap (3-11) BUN (7-18) mg/dl Creatinine (0.6-1.4) mg/dl Est Cr Clr Drug Dosing Est GFR ( Amer) ml/min Est GFR (Non-Af Amer) ml/min BUN/Creatinine Ratio (10-20) Glucose (70-99) mg/dl Calcium (8.5-10.1) mg/dl Magnesium (1.8-2.4) mg/dl Total Bilirubin (0.2-1) mg/dl Direct Bilirubin (0-0.2) mg/dl AST (15-37) U/L ALT (12-78) U/L Alkaline Phosphatase (45-117) U/L Troponin I (0-0.045) ng/ml Total Protein (6.4-8.2) gm/dl Albumin (3.4-5.0) gm/dl Urine Color Urine Appearance (Clear) Urine pH (4.5-7.5) Ur Specific [place] (1.000-1.030) Urine Protein (Negative) Urine Glucose (UA) (Negative) Urine Ketones (Negative) Urine Blood (Negative) Urine Nitrite (Negative) Urine Bilirubin (Negative) Urine Urobilinogen (Negative) Ur Leukocyte Esterase (Negative) Urine WBC (Auto) (0-5) /hpf Urine RBC (Auto) (0-4) /hpf U Hyaline Cast (Auto) (0-5) /lpf U Epithel Cells (Auto) (0-5) /lpf Urine Bacteria (Auto) (Negative) Ethyl Alcohol mg/dL (0-3) mg/dl COVID-19 Eval Order SARS-CoV-2 (PCR) (Negative) Administered Medications Dexmedetomidine HCl 200 mcg/ (Sodium Chloride) 50 mls @ 7.18 mls/hr IV .[id number] ON LICENSE OF [facility]; Protocol Stop: 01/17/21 15:59 Last Admin: 01/13/21 16:37 Dose: 0.4 mcg/kg/hr, 7.2 mls/hr Documented by: [id number] Cosigned by: [id number] Discontinued Medications Lorazepam (Ativan) 2 mg in 4 mls @ 4 mls/min IV NOW STA Stop: 01/13/21 12:56 Last Admin: 01/13/21 12:58 Dose: 4 mls/min Documented by: [id number] Sodium Chloride (Nss 1000ml) 1,000 mls @ 999 mls/hr IV .Q1H1M ONE Stop: 01/13/21 13:57 Last Infusion: 01/13/21 14:13 Dose: 0 mls/hr Documented by: [id number] Admin: 01/13/21 13:12 Dose: 999 mls/hr Documented by: [id number] Multivitamins 10 ml/ Thiamine HCl 100 mg/ Folic Acid 1 mg/Sodium Chloride 1,011.2 mls @ 1,011.2 mls/hr IV .Q1H ONE Stop: 01/13/21 13:58 Last Infusion: 01/13/21 15:03 Dose: 0 mls/hr Documented by: [id number] Admin: 01/13/21 14:03 Dose: 1,011.2 mls/hr Documented by: [id number] Lorazepam (Ativan) 2 mg in 4 mls @ 4 mls/min IV NOW STA Stop: 01/13/21 14:19 Last Admin: 01/13/21 14:26 Dose: 4 mls/min Documented by: [id number] Magnesium Sulfate/Dextrose (Magnesium Sulfate / D5w) 1 gm in 100 mls @ 100 mls/hr IV Q1H ROBIN Stop: 01/13/21 16:34 Last Admin: 01/13/21 16:55 Dose: 100 mls/hr Documented by: [id number] Infusion: 01/13/21 16:40 Dose: 100 mls/hr Documented by: [id number] Admin: 01/13/21 15:40 Dose: 100 mls/hr Documented by: [id number] Potassium Chloride (K Richard / Wtr) 10 meq in 100 mls @ 100 mls/hr IV Q1H ROBIN Stop: 01/13/21 16:44 Last Admin: 01/13/21 16:54 Dose: 100 mls/hr Documented by: [id number] Infusion: 01/13/21 16:34 Dose: 100 mls/hr Documented by: [id number] Admin: 01/13/21 15:34 Dose: 100 mls/hr Documented by: [id number] Lorazepam (Ativan) 2 mg in 4 mls @ 4 mls/min IV NOW STA Stop: 01/13/21 15:16 Last Admin: 01/13/21 15:31 Dose: 4 mls/min Documented by: [id number] Imaging Data Radiologist's Impression: Chest X-Ray 01/13/21 12:57 XR chest 1V portable HISTORY: 45 years-old Male seizure, post ictal acute seizure like activity COMPARISON: Chest radiograph 05/18/2016 TECHNIQUE: Portable AP view of the chest FINDINGS: Cardiac silhouette is upper limits of normal in size. There is no pneumothorax, pleural effusion, airspace consolidation or overt pulmonary edema. Degenerative changes of the shoulders and spine. IMPRESSION: No acute process. ACT 112: Negative or not required by law. The above report was generated using voice recognition software. It may contain grammatical, syntax or spelling errors. Electronically signed by: Refugio Palacios M.D. 01/13/2021 1:[address] 01/13/21 12:57 CT head/brain wo con CLINICAL HISTORY: 45 years-old Male with multiple seizures. Acute seizure TECHNIQUE: Multiple axial CT images of the head were obtained without contrast. A dose lowering technique was utilized adhering to the principles of ALARA. CT DOSE: 537.48 mGy.cm COMPARISON: Brain MRI 05/18/2016, head CT 05/17/2016 FINDINGS: No acute intracranial hemorrhage, midline shift, intracranial mass, h ydrocephalus, territorial ischemia or abnormal extra-axial collection. The calvarium is intact. The paranasal sinuses, mastoid air cells, and middle ear cavities are clear. IMPRESSION: No acute intracranial abnormality. ACT 112: Negative or not required by law. The above report was generated using voice recognition software. It may contain grammatical, syntax or spelling errors. Electronically signed by: Refugio Palacios M.D. 01/13/2021 1:40 PM Discharge Plan Visit Data Chief Complaint: Seizure Stated Complaint: SHAKING, VOMITING ED Provider: Amanuel Cardoza Discharge Problem: Delirium tremens, Thrombocytopenia, Alcoholism, Alcohol withdrawal Forms Stand Alone Forms: Seeo Prescriptions Prescriptions: No Action lamotrigine [Lamictal] 150 mg tablet 150 mg PO BID RF: 0 lisinopril [Prinivil] 20 mg tablet 20 mg PO QAM RF: 0 Referrals Referrals: Shahzad Steward MD [Hospitalist] -
--- NOTE | 2021-01-13 13:34 | XRay Report ---
XR chest 1V portable HISTORY: 45 years-old Male seizure, post ictal acute seizure like activity COMPARISON: Chest radiograph 05/18/2016 TECHNIQUE: Portable AP view of the chest FINDINGS: Cardiac silhouette is upper limits of normal in size. There is no pneumothorax, pleural effusion, air space consolidation or overt pulmonary edema. Degenerative changes of the shoulders and spine. IMPRESSION: No acute process. ACT 112: Negative or not required by law. The above report was generated using voice recognition software. It may contain grammatical, syntax o r spelling errors. Electronically signed by: Refugio Palacios M.D. 01/13/2021 1:33 PM
[2021-01-13 13:37] LABS: Alanine Aminotransferase 38 U/L (12-78); Albumin Level 4.2 gm/dl (3.4-5.0); Aspartate Aminotransferase 130 U/L (15-37); BUN Creatinine Ratio 5.1 (10-20); Blood Urea Nitrogen 4 mg/dl (7-18); Calcium 8.7 mg/dl (8.5-10.1); Carbon Dioxide 13 mmol/L (21-32); Chloride 98 mmol/L (98-107); Est GFR (African American) 122.5 ml/min; Est GFR (Non-African American) 105.7 ml/min; Glucose 130 mg/dl (70-99); Magnesium 1.7 mg/dl (1.8-2.4); Potassium 2.8 mmol/L (3.5-5.1); Sodium 138 mmol/L (136-145)
[2021-01-13 13:42] LABS: Alkaline Phosphatase 252 U/L (45-117); Bilirubin,Total 2.1 mg/dl (0.2-1); Total Protein 10.2 gm/dl (6.4-8.2); Troponin I < 0.015 ng/ml (0-0.045)
--- NOTE | 2021-01-13 13:42 | CT Scan Report ---
CT head/brain wo con CLINICAL HISTORY: 45 years-old Male with multiple seizures. Acute seizure TECHNIQUE: Multiple axial CT images of the head were obtained without contrast. A dose lowering tech nique was utilized adhering to the principles of ALARA. CT DOSE: 537.48 mGy.cm COMPARISON: Brain MRI 05/18/2016, head CT 05/17/2016 FINDINGS: No acute intracranial hemorrhage, midline shift, intracranial mass, hydrocephalus, territorial ischem ia or abnormal extra-axial collection. The calvarium is intact. The paranasal sinuses, mastoid air cells, and middle ear cavities are clear . IMPRESSION: No acute intracranial abnormality. ACT 112: Negative or not required by law. The above report was generated using voice recognition software. It may contain grammatical, syntax o r spelling errors. Electronically signed by: Refugio Palacios M.D. 01/13/2021 1:40 PM
[2021-01-13 14:16] LABS: Basophils # (auto) 0.03 K/uL (0-0.2); Basophils % (auto) 0.5 %; Eosinophils # (auto) 0.01 K/uL (0-0.5); Eosinophils % (auto) 0.2 %; Hematocrit (blood only) 40.1 % (42-52); Hemoglobin 13.5 g/dL (14.0-18.0); Immature Granulocytes # (auto) 0.01 K/uL (0.00-0.02); Immature Granulocytes % (auto) 0.2 %; Lymphocytes # (auto) 1.68 K/uL (1.2-3.4); Lymphocytes % (auto) 27.7 %; Macrocytosis Present; Mean Corpuscular Hemoglobin 39.2 pg (25-34); Mean Corpuscular Hgb Conc 33.7 g/dL (32-36); Mean Corpuscular Volume 116.6 fL (80-100); Mean Platelet Volume 11.2 fL (7.4-10.4); Monocytes # (auto) 0.66 K/uL (0.11-0.59); Monocytes % (auto) 10.9 %; Neutrophils # (auto) 3.67 K/uL (1.4-6.5); Neutrophils % (auto) 60.5 %; Platelet Count 81 K/uL (130-400); RDW Coefficient of Variation 14.3 % (11.5-14.5); RDW Standard Deviation 61.7 fL (36.4-46.3); Red Blood Count 3.44 M/uL (4.7-6.1); White Blood Count 6.06 K/uL (4.8-10.8)
--- NOTE | 2021-01-13 14:39 | History & Physical Report ---
Date of Service January 13, 2021 Assessment & Plan (1) Alcohol withdrawal: Plan: Severe, with likely early DTs. Had an alcohol withdrawal seizure in the ER today. s/p multiple doses of IV ativan in the ER with refractory withdrawal symptoms. His last etoh beverage was 3-4 days ago, but he has a measurable etoh level in the ER today suggesting more recent usage. Either way his withdrawal is severe and he likely will need a continuous infusion of medication to treat his symptoms. I spoke with Dr Li from the public transit bus driver team. We will admit to ICU, place on precedex drip, and he may need additional meds (IV ativan). Received a banana bag in the ER. Will continue high-dose thiamine - 200mg IV BID. Cont folic acid 1mg IV daily. MVI daily. (2) Alcohol withdrawal seizure: Plan: s/p ativan in the ER. Treat his withdrawal. Has ?seizure disorder with chronic lamictal use. Continue the lamictal. Normalize his low K and low mag. Check a CPK. (3) Hypokalemia: Plan: Presenting level of 2.8. KCL 20meq IV x 1 now. Add KCL to his basal fluids. Plan to repeat his BMP later this afternoon. Replace low mag as below. (4) High anion gap metabolic acidosis: Plan: Likely 2nd to alcoholic ketosis. Can't rule out lactic acidosis. He is significantly volume depleted as well. s/p copious hydration in the ER. Cont IV fluids, check a lactate level now, and repeat BMP this afternoon. (5) Essential hypertension: Plan: Continue SHERMAN. BPs elevated due to the withdrawal itself. may need beta miranda or clonidine. (6) Alcoholism: Plan: Once withdrawal is improved in several days will involve social work +/- psychology for their assistance in options for inpatient/outpatient rehab, etc. (7) Thrombocytopenia: Plan: Likely 2nd to direct toxic effects of alcohol. Can't rule out liver disease, B12 def, folate def, etc. Serial CBC. Check B12/folate. Serial LFTs. Check INR. (8) Abnormal LFTs: Plan: Likely alcoholic hepatitis. Trend. Consider RUQ u/s - r/o cirrhosis. Given his altered MS - check ammonia level. (9) Hypomagnesemia: Plan: 2 grams mag sulfate IV x 1 now. Repeat level later this evening. (10) DVT prophylaxis: Plan: SCDs defer on chemical means due to low platelets (11) Metabolic encephalopathy: Plan: 2nd to etoh withdrawal. check ammonia level to be complete. supportive care, treat the withdrawal, etc. Plan: father updated at bedside History of Present Illness Chief Complaint: shakes, "seizure" while in triage Primary Care Provider: BALA PCP 45yo male with history of alcoholism, prior alcohol withdrawal, seizure disorder (vs etoh-withdrawal seizures), and HTN presents with his father from home due to "shakes." Most of the history was obtained from the patient's father as the patient was mildly confused and offered little information on his own accord. Pt's father states that last night his son began to show severe "shakes" (tremors) of his arms, hands, head, etc. He was having hot/cold sweats and felt poorly. This am the tremors were much more severe and thus his father brought him to the ER. Patient admits to daily, heavy etoh consumption. He states his last etoh beverage was 3-4 days ago but couldn't give me a firm date. He states he can drink up to a bottle of wine each day, also drink beer and liquor. He can drink an entire bottle of Mark Roa in 1-2 days. He wouldn't quantify how much beer he drinks. He admits to having had DWIs in the past. Has never been to alcohol/drug rehab. Denies any tobacco. While waiting in a wheelchair in the [facility] he had a witnessed generalized se izure. His father reports he may have had a smaller seizure at home as well. He has been diagnosed as having "seizure disorder" in the past - perhaps in his 20s - and takes lamictal for such. He has not had any seizure since moving back to [facility] 3 [address] ago (by way of [facility]). He does not follow with neurology locally. Prior to my arrival he had received 4mg of IV ativan. Despite such he had severe tremors and was unable to tell me correctly the day of the week (thought it was Friday) but did know the month and year. Denied any visual/auditory hallucinations. I gave an additional 2mg of IV ativan for seizure tremors, tachycardia, and sweats. Allergies Allergy/AdvReac Type Severity Reaction Status Date / Time No Known Allergies Allergy Mild Verified 01/13/21 14:44 Home Medications Medication Instructions Recorded Confirmed Type lamotrigine 150 mg tablet 150 mg PO BID 01/13/21 01/13/21 History (Lamictal) lisinopril 20 mg tablet (Prinivil) 20 mg PO QAM 01/13/21 01/13/21 History Past Med/Surg History Medical History (Updated 01/13/21 @ 16:59 by Bill Jernigan) Alcoholism Essential hypertension Seizures Surgical History (Updated 01/13/21 @ 15:35 by Bill Jernigan) No pertinent past surgical history Family History (Updated 01/13/21 @ 15:36 by Bill Jernigan) Father Skin cancer of face Denies family history of Alcoholism Seizure disorder Social History (Updated 01/13/21 @ 15:38 by Bill Jernigan) Smoking Status: Never smoker Hx Alcohol Use: Yes Alcohol type: beer, wine and hard liquor Alcohol type Comment: DAILY consumption, mixture of bottle of wine, bottle of liquor, and/or beer Hx Substance Use: No marital status: marital status details: x 2 Current Living Situation: Family Current Living Situation Comment: lives w/ father in [place] current occupational status: 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 How many Children do You have: 0 Feels Safe at Home: Yes Review of Systems Review of Systems: gen - fatigue, hot/cold chills, no fever, loss of appetite over the previous 3-4 days eyes - no visual change HENT - no ear pain, sore throat, nasal congestion CV - no chest pain Pulm - no cough, no dyspnea GI - no N/V/Abd pain - no dysuria Musculo - denies joint pains Neuro - no headaches; severe tremors skin - no rash endo - denies any diabetes heme - no bruising psych - denies any depression/anxiety Physical Exam Physical Exam: gen - looks unwell, confused, difficult to understand his speech but does know he is in the hospital, that it is 2020, and it is January eyes - PERRL; severe horizontal nystagmus HENT - no signs of trauma; nose clear; right TM clear with old scarring; left TM not seen due to cerumen; mouth - MM pasty, no tongue bite pastor Neck - no JVD, lymphadenopathy or goiter Heart - tachy, s1 s2, no murmur lungs - CTA b/l abd - liver enlarged but NT; spleen palpable; ND; BS+ Ext - no edema, pulses 2+ b/l skin - tattoos; no rash; sweaty neuro - SEVERE tremors of head, b/l arms; strength upper/lower extremities 5/5 psych - a/o x 2 lymph - no cervical lymphadenopathy Results & Data Results & [facility] ([facility]) Vital Signs (Past 12 Hours) Vital Signs Temp Pulse Resp BP Pulse Ox 01/13/21 13:00 75 30 H 160/90 H 96 01/13/21 12:58 77 33 H 97 01/13/21 12:57 94 01/13/21 12:46 37.4 C 87 30 H 196/100 H 95 Laboratory Results Laboratory Results - last 24 hr 01/13/21 01/13/21 01/13/21 13:00 13:00 13:13 WBC 6.06 RBC 3.44 L Hgb 13.5 L Hct 40.1 L MCV 116.6 H MCH 39.2 H MCHC 33.7 RDW Std Deviation 61.7 H RDW Coeff of Amena 14.3 Plt Count 81 L MPV 11.2 H Immature Gran % (Auto) 0.2 Neut % (Auto) 60.5 Lymph % (Auto) 27.7 Surry % (Auto) 10.9 Eos % (Auto) 0.2 Baso % (Auto) 0.5 Neut # (Auto) 3.67 Lymph # (Auto) 1.68 Surry # (Auto) 0.66 H Eos # (Auto) 0.01 Baso # (Auto) 0.03 Immature Gran # (Auto) 0.01 Macrocytosis Present Sodium 138 Potassium 2.8 L Chloride 98 Carbon Dioxide 13 L Anion Gap 27.0 H BUN 4 L Creatinine 0.87 Est Cr Clr Drug Dosing Not Reportable Est GFR ( Amer) 122.5 Est GFR (Non-Af Amer) 105.7 BUN/Creatinine Ratio 5.1 L Glucose 130 H Calcium 8.7 Magnesium 1.7 L Total Bilirubin 2.1 H Direct Bilirubin 1.0 H AST 130 H ALT 38 Alkaline Phosphatase 252 H Troponin I < 0.015 Total Protein 10.2 H Albumin 4.2 Ethyl Alcohol mg/dL 30.0 H COVID-19 Eval Order SARS-CoV-2 (PCR) 01/13/21 01/13/21 14:04 14:04 WBC RBC Hgb Hct MCV MCH MCHC RDW Std Deviation RDW Coeff of Amena Plt Count MPV Immature Gran % (Auto) Neut % (Auto) Lymph % (Auto) Surry % (Auto) Eos % (Auto) Baso % (Auto) Neut # (Auto) Lymph # (Auto) Surry # (Auto) Eos # (Auto) Baso # (Auto) Immature Gran # (Auto) Macrocytosis Sodium Potassium Chloride Carbon Dioxide Anion Gap BUN Creatinine Est Cr Clr Drug Dosing Est GFR ( Amer) Est GFR (Non-Af Amer) BUN/Creatinine Ratio Glucose Calcium Magnesium Total Bilirubin Direct Bilirubin AST ALT Alkaline Phosphatase Troponin I Total Protein Albumin Ethyl Alcohol mg/dL COVID-19 Eval Order Covid19 at [facility] SARS-CoV-2 (PCR) NEGATIVE Diagnostic Findings Chest X-Ray 01/13/21 12:57 XR chest 1V portable HISTORY: 45 years-old Male seizure, post ictal acute seizure like activity COMPARISON: Chest radiograph 05/18/2016 TECHNIQUE: Portable AP view of the chest FINDINGS: Cardiac silhouette is upper limits of normal in size. There is no pneumothorax, pleural effusion, airspace consolidation or overt pulmonary edema. Degenerative changes of the shoulders and spine. IMPRESSION: No acute process. ACT 112: Negative or not required by law. The above report was generated using voice recognition software. It may contain grammatical, syntax or spelling errors. Electronically signed by: Refugio Palacios M.D. 01/13/2021 1:[address] 01/13/21 12:57 CT head/brain wo con CLINICAL HISTORY: 45 years-old Male with multiple seizures. Acute seizure TECHNIQUE: Multiple axial CT images of the head were obtained without contrast. A dose lowering technique was utilized adhering to the principles of ALARA. CT DOSE: 537.48 mGy.cm COMPARISON: Brain MRI 05/18/2016, head CT 05/17/2016 FINDINGS: No acute intracranial hemorrhage, midline shift, intracranial mass, hydrocephalus, territorial ischemia or abnormal extra-axial collection. The calvarium is intact. The paranasal sinuses, mastoid air cells, and middle ear cavities are clear. IMPRESSION: No acute intracranial abnormality. ACT 112: Negative or not required by law. The above report was generated using voice recognition software. It may contain grammatical, syntax or spelling errors. Electronically signed by: Refugio Palacios M.D. 01/13/2021 1:40 PM Critical Care Time Critical Care Time: Yes PG Care Time/CCT Total # of Minutes Spent Total Time Spent with Patient: Total time spent is greater than 50% in coordination of care (as documented) at patient's floor/unit and/or counseling patient: Critical Care Time: Yes 60 minutes; coordination of care with ICU attending, Rx of withdrawal, etc Coding Level of Care Code None Diagnoses Alcohol withdrawal F10.239 Alcohol withdrawal seizure F10.239; R56.9 Hypokalemia E87.6 High anion gap metabolic acidosis E87.2 Essential hypertension I10 Alcoholism F10.20 Thrombocytopenia D69.6 DVT prophylaxis Z29.9 Abnormal LFTs R94.5 Hypomagnesemia E83.42 Metabolic encephalopathy G93.41 Additional Codes Critical Care Time - Critical Care Time: Yes ([id number]) Time Spent (min) 60 Comment critical care time
[2021-01-13] MEDS: POTASSIUM CHLORIDE / WTR 10 MEQ/100 ML PLCT IV SCH ×2 (15:34→16:54)
[2021-01-13] MEDS: MAGNESIUM SULFATE / D5W 1 GM/100 ML BAG IV SCH ×2 (15:40→16:55)
[2021-01-13] MEDS ORDERED: STAT IV Infusion **Titration per Protocol STA (15:49)
[2021-01-13 15:57] LABS: Appearance Urine Clear (Clear); Bacteria Urine Automated Negative (Negative); Bilirubin Urine Negative (Negative); Blood Urine 1+ (Negative); Cast Urine Automated 0 /lpf (0-5); Color Urine Yellow; Glucose Urine UA Negative (Negative); Ketones Urine 1+ (Negative); Leukocyte Esterase Urine Negative (Negative); Nitrite Urine Negative (Negative); Protein Urine 2+ (Negative); RBC Urine Automated 0-4 /hpf (0-4); Specific Gravity Urine 1.013 (1.000-1.030); Urobilinogen Urine Negative (Negative); WBC Urine Automated 0 /hpf (0-5)
[2021-01-13] MEDS: DEXMEDETOMIDINE HCL 200 MCG in SODIUM CHLORIDE 0.9% 48 ML IV SCH ×3 (16:37→21:56)
[2021-01-13 16:58] LABS: INR 1.2 (0.9-1.1); Prothrombin Time 11.9 Seconds (9.0-12.0)
[2021-01-13 17:22] LABS: Creatine Kinase 576 U/L (39-308); Lipase 203 U/L (73-393)
[2021-01-13] MEDS ORDERED: LACTULOSE SYRUP 20 GM/30 ML UDC PO ONE (17:46)
[2021-01-13 18:19] LABS: Folate (Folic Acid) > 20.00 ng/ml (>5.38)
[2021-01-13 18:35] LABS: Vitamin B12 634 pg/ml (193-986)
[2021-01-13] MEDS ORDERED: ICU PROTOCOL FOR HYPERGLYCEMIA PRN (18:53)
[2021-01-13] MEDS ORDERED: LORazepam 1 MG/2 ML VIAL IV PRN (19:41)
[2021-01-13] MEDS ORDERED: ATIVAN IV ALCOHOL WITHDRAWL IV PRN (19:41)
--- NOTE | 2021-01-13 19:49 | Critical Care Consultation ---
Date of Consultation January 13, 2021 Assessment & Plan (1) Delirium tremens: Reason Critically Ill: Patient admitted to ICU with refractory DTs and post alcohol withdrawal seizure, along with hepatic encephalopathy. Currently requiring continuous sedation with Precedex drip and KELL S with IV Ativan Neuro - Alcohol withdrawal/delirium tremens/acute encephalopathylikely mixed picture in the setting of hepatic encephalopathy with elevated ammonia, post witnessed alcohol withdrawal seizure, and refractory delirium tremens -CT head without acute intracranial findings -Elevated ammonia, starting lactulose at hepatic encephalopathy dosage -Currently on Precedex drip, will wean as tolerated. KELL score with IV Ativan protocol -Continue folate, multivitamin, thiamine -Continue Lamictal, questionable history of seizure disorder -Repleting electrolytes -Continue to monitor in ICU while requiring continuous sedation Cardiac - Currently normal sinus rhythm on telemetry No history of cardiac disease, troponin negative ICU vitals monitoring and continuous telemetry for now Respiratory - No history of pulmonary disease and no acute respiratory distress. Lungs clear to auscultation Continuous monitoring pulse ox GI - PPI RENAL/LYTES - Hypokalemia, hypomagnesemiamonitor routine BMPs and replete electrolytes as indicated - Strict I's and O's ENDO - No history of diabetes or thyroid disease ICU hyperglycemic protocol HEME - H&H stable, monitor routine CBCs ID - No negation for infectious process at this time LINES/IV ACCESS - Peripheral IVs DVT PROPHYLAXIS - SCDs, hold on anticoagulation until platelet count improved I have personally spent 40 minutes of critical care time in the direct management of this patient. This is a life/limb threatening event. This includes time spent evaluating patient, direct bedside care, chart review, placing orders, interpretation of diagnostic studies, discussion with consultants, patient, and family members, as well as other required patient management activities. This time is exclusive of all separately billable procedures, and teaching time and separate from and in addition to any other critical care service time. Thank you for allowing us to participate in the care of this patient. Please refer to my attending physician's documentation for any further recommendations. (2) Metabolic encephalopathy: (3) Abnormal LFTs: (4) Hypomagnesemia: (5) DVT prophylaxis: (6) Thrombocytopenia: (7) High anion gap metabolic acidosis: (8) Alcoholism: (9) Alcohol withdrawal: (10) Essential hypertension: (11) Hypokalemia: (12) Alcohol withdrawal seizure: (13) Hepatic encephalopathy: History of Present Illness Attending Physician: Bill Jernigan History of Present Illness HPI obtained from prior EMR documentation and discussion with other provider as patient is confused and currently receiving sedation. Patient is a 45-year-old male with past medical history of EtOH withdrawal seizures, ongoing EtOH abuse, HTN who presented to the emergency department after patient was found by his father to be confused with worsening tremors and diaphoresis. In the emergency department patient had a witnessed generalized seizure and the patient's father also reported that he may have had seizure activity at home as well. Patient does have questionable seizure disorder as well and takes Lamictal but does not follow with neurology. Patient admits to drinking liquor, wine, and beer but is a poor historian in his current state. He was given multiple doses of Ativan and eventually required Precedex drip due to delirium tremens. Patient admitted to ICU for further management at this time. On arrival to the ICU patient is confused and tremulous and continues to need reorienting. He is currently on Precedex drip and requires as needed Ativan. He is able to answer simple questions and currently denies pain, headache, dizziness, sore throat, chest pain, palpitations, shortness of breath, abdominal pain, nausea. CT head was negative for acute intracranial findings. Patient did have elevated ammonia and is being started on lactulose. We will continue with management of refractory delirium tremens in the ICU for now. Allergies Allergy/AdvReac Type Severity Reaction Status Date / Time No Known Allergies Allergy Mild Verified 01/13/21 14:44 Home Medications Medication Instructions Recorded Confirmed Type lamotrigine 150 mg tablet 150 mg PO BID 01/13/21 01/13/21 History (Lamictal) lisinopril 20 mg tablet (Prinivil) 20 mg PO QAM 01/13/21 01/13/21 History Patient History Medical History (Updated 01/13/21 @ 23:22 by JUSTUS Cardenas) Alcoholism Essential hypertension Seizures Surgical History (Updated 01/13/21 @ 15:35 by Bill Jernigan) No pertinent past surgical history Family History (Updated 01/13/21 @ 15:36 by Bill Jernigan) Father Skin cancer of face Denies family history of Alcoholism Seizure disorder Social History (Updated 11/06/21 @ 15:38 by Bill Jernigan) Smoking Status: Current every day smoker Cigarettes Per Day: 20; Hx Alcohol Use: Yes Alcohol type: beer, wine and hard liquor Alcohol type Comment: DAILY consumption, mixture of bottle of wine, bottle of liquor, and/or beer Hx Substance Use: No Preferred Language: Tunisian Communication Ability: Impaired Operator Receptionist Required: No Beliefs That Will Affect Care: None marital status: marital status details: x 2 Current Living Situation: Parent Current Living Situation Comment: lives w/ father in [place] current occupational status: 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[employer] How many Children do You have: 0 Other Information That Helps Us Care for You: No Feels Safe at Home: Yes Safety Concerns: Feels Safe At This Time Assistive Devices: Denture - Upper, Denture - Lower and Glasses Review of Systems Review of Systems: All systems reviewed & are unremarkable except as noted in HPI & below Physical Exam Constitutional: + thin, + behavioral limitations and + diaphoretic Eyes: PERRL, conjunctivae normal, anicteric sclerae ENMT: external ear and nose normal, oropharynx normal Neck: trachea midline, no thyromegaly Respiratory: normal respiratory effort, lungs clear to auscultation Cardiovascular: RRR, no murmur, no edema Heart Sounds: normal S1 and normal S2 Gastrointestinal (Abdomen): normal bowel sounds, soft, nontender, no hepatos plenomegaly Musculoskeletal: no cyanosis or clubbing, extremities motor strength 5/5 Skin: no rashes, warm and dry Neurologic: PERRL, EOMI, accommodation nl, no face palsy, no dysarthria Psychiatric: A+Ox3, euthymic affect Results & Data Results & Data ([facility]) Vital Signs (Past 12 Hours) Vital Signs Temp Pulse Pulse Resp BP BP Pulse Ox 01/13/21 18:46 36.8 C 104 H 21 178/111 H 97 01/13/21 18:00 107 H 15 163/106 H 97 01/13/21 17:30 109 H 12 161/110 H 96 01/13/21 17:00 105 H 28 H 163/108 H 94 01/13/21 16:30 108 H 26 H 166/102 H 94 01/13/21 16:00 111 H 20 156/104 H 97 01/13/21 15:30 107 H 16 163/101 H 95 01/13/21 15:00 107 H 25 H 165/104 H 95 01/13/21 14:30 103 H 27 H 94 01/13/21 14:00 90 22 171/100 H 100 01/13/21 13:00 75 30 H 160/90 H 96 01/13/21 12:58 77 33 H 97 01/13/21 12:57 94 01/13/21 12:46 37.4 C 87 30 H 196/100 H 95 Coding Level of Care Code Critical Care 1st 30-74 mins Diagnoses Delirium tremens F10.231 Metabolic encephalopathy G93.41 Abnormal LFTs R94.5 Hypomagnesemia E83.42 DVT prophylaxis Z29.9 Thrombocytopenia D69.6 High anion gap metabolic acidosis E87.2 Alcoholism F10.20 Alcohol withdrawal F10.231 Complication of substance-induced condition: with delirium Essential hypertension I10 Hypokalemia E87.6 Alcohol withdrawal seizure F10.239; R56.9 Hepatic encephalopathy K72.90 (1) Alcohol withdrawal Complication of substance-induced condition: with delirium Qualified Code(s): F10.231 - Alcohol dependence with withdrawal delirium
[2021-01-13] MEDS: LORazepam 3 MG/6 ML VIAL IV PRN ×2 (20:02→21:18)
[2021-01-13] MEDS: NSS + 20MEQ KCL 20 MEQ/1,000 ML BAG IV SCH (20:02)
[2021-01-13] MEDS: PANTOprazole 40 MG in SYRINGE 0 ML IV SCH (20:03)
[2021-01-13] MEDS: LACTULOSE SYRUP 30 GM/45 ML UDP PO SCH (20:04)
[2021-01-13] MEDS: lamoTRIgine 100 MG TAB PO SCH (20:05)
[2021-01-13] MEDS: THIAMINE HCL 200 MG in SODIUM CHLORIDE 0.9% 50 ML IV SCH (20:06)
[2021-01-13 20:25] LABS: BUN Creatinine Ratio 7.7 (10-20); Calcium 7.6 mg/dl (8.5-10.1); Creatinine Clr Calc Pharmacy 145.2 ml/min; Est GFR (African American) 132.4 ml/min; Est GFR (Non-African American) 114.3 ml/min; Magnesium 2.4 mg/dl (1.8-2.4); Phosphorus 1.6 mg/dl (2.5-4.9); Potassium 3.3 mmol/L (3.5-5.1)
[2021-01-13] MEDS ORDERED: POTASSIUM PHOS 3 MMOL/1 ML INFUSION IV STA (23:20)
[2021-01-13] MEDS ORDERED: POTASSIUM PHOSPHATE 24 MMOL in SODIUM CHLORIDE 0.9% 500 ML IV ONE (23:30)
--- NOTE | 2021-01-13 23:32 | Electrocardiogram Report ---
Test Reason : Blood Pressure : / mmHG Vent. Rate : 084 BPM Atrial Rate : 084 BPM P-R Int : 140 ms QRS Dur : 106 ms QT Int : 428 ms P-R-T Axes : 075 057 063 degrees QTc Int : 505 ms Poor data quality, interpretation may be adversely affected Normal sinus rhythm Voltage criteria for left ventricular hypertrophy Prolonged QT Abnormal ECG When compared with ECG of 18-MAY-2016 06:18, No significant change Confirmed by Inocencio Clarke ([id number]) on 01/13/2021 11:32:01 PM Referred By: Confirmed By:Inocencio Clarke
[2021-01-14] MEDS: LORazepam 2 MG/4 ML VIAL IV PRN (00:36)
[2021-01-14] MEDS: DEXMEDETOMIDINE HCL 200 MCG in SODIUM CHLORIDE 0.9% 48 ML IV SCH ×11 (00:37→22:31)
[2021-01-14] MEDS: NSS + 20MEQ KCL 20 MEQ/1,000 ML BAG IV SCH (02:36)
[2021-01-14] MEDS: LORazepam 3 MG/6 ML VIAL IV PRN ×2 (03:24→16:10)
[2021-01-14 05:58] LABS: Albumin Level 3.1 gm/dl (3.4-5.0); BUN Creatinine Ratio 10.5 (10-20); Bilirubin Direct 0.9 mg/dl (0-0.2); Calcium 7.5 mg/dl (8.5-10.1); Est GFR (African American) 136.4 ml/min; Est GFR (Non-African American) 117.7 ml/min; Magnesium 2.2 mg/dl (1.8-2.4); Potassium 3.3 mmol/L (3.5-5.1)
[2021-01-14 05:59] LABS: Basophils # (auto) 0.01 K/uL (0-0.2); Basophils % (auto) 0.3 %; Eosinophils # (auto) 0.03 K/uL (0-0.5); Eosinophils % (auto) 0.9 %; Hematocrit (blood only) 32.9 % (42-52); Hemoglobin 11.1 g/dL (14.0-18.0); Lymphocytes % (auto) 32.8 %; Macrocytosis Present; Mean Corpuscular Hemoglobin 39.2 pg (25-34); Mean Corpuscular Hgb Conc 33.7 g/dL (32-36); Mean Corpuscular Volume 116.3 fL (80-100); Mean Platelet Volume 10.3 fL (7.4-10.4); Monocytes # (auto) 0.23 K/uL (0.11-0.59); Monocytes % (auto) 6.9 %; Neutrophils # (auto) 1.98 K/uL (1.4-6.5); Neutrophils % (auto) 59.1 %; Platelet Count 37 K/uL (130-400); RDW Coefficient of Variation 14.4 % (11.5-14.5); RDW Standard Deviation 61.3 fL (36.4-46.3); Red Blood Count 2.83 M/uL (4.7-6.1); White Blood Count 3.35 K/uL (4.8-10.8)
[2021-01-14 06:05] LABS: Bilirubin,Total 2.2 mg/dl (0.2-1); Phosphorus 2.4 mg/dl (2.5-4.9)
[2021-01-14] MEDS ORDERED: POTASSIUM PHOS 3 MMOL/1 ML INFUSION IV STA (06:30)
[2021-01-14] MEDS ORDERED: POTASSIUM PHOSPHATE 30 MMOL in SODIUM CHLORIDE 0.9% 500 ML IV ONE (06:45)
--- NOTE | 2021-01-14 06:59 | Ultrasound Report ---
US liver CLINICAL HISTORY: cirrhosis, hepatic encephalopathy COMPARISON STUDY: No previous studies for comparison. FINDINGS: Hepatic echogenicity is increased. No hepatic lesions are identified. There may be slight c oarsening of hepatic echotexture. No gallstones are noted. No gallbladder wall thickening. No biliary ductal dilatation is present. Common bile duct measures 4 mm in caliber. Pancreas is unremarkable al though the head and tail are slightly obscured. There is no right hydronephrosis. IMPRESSION: 1. Increased hepatic echogenicity. This favors hepatic steatosis. Liver not overtly cirrhotic however superimposed hepatocellular disease cannot be excluded. 2. No gallstones or biliary duct dilatation. ACT 112: Negative or not required by law. Electronically signed by: Sánchez Painter M.D. 01/14/2021 6:57 AM
[2021-01-14] MEDS ORDERED: Influenza Vaccine (Fluarix) 0.5 ML SYR (Standard Dose) IM ONE (08:00)
[2021-01-14] MEDS ORDERED: STAT IV Infusion **Titration per Protocol STA (08:12)
--- NOTE | 2021-01-14 08:23 | Hospitalist Progress Note ---
Date of Service January 14, 2021 Assessment & Plan (1) Alcohol withdrawal: Plan: Severe, with DTs. Had an alcohol withdrawal seizure in the ER on admission s/p multiple doses of IV ativan in the ER with refractory withdrawal symptoms transitioned to iv ativan gtt along with precedex. His last etoh beverage was 3-4 days ago, but he has a measurable etoh level in the ER today suggesting more recent usage. continue high-dose thiamine - 200mg IV BID. Cont folic acid 1mg IV daily. MVI daily. (2) Alcohol withdrawal seizure: Plan: s/p ativan in the ER. seizure disorder with chronic lamictal use. replete electrolytes (3) Hypokalemia: Plan: replete (4) High anion gap metabolic acidosis: Plan: now resolved Cont IV fluids, lactate from seizure possible also (5) Essential hypertension: Plan: Continue SHERMAN. BPs elevated due to the withdrawal itself. may need beta miranda or clonidine. (6) Alcoholism: Plan: case management to refer to outpt rehab (7) Thrombocytopenia: Plan: Likely 2nd to direct toxic effects of alcohol. (8) Abnormal LFTs: Plan: Likely alcoholic hepatitis. bili remains up, transaminases improving, ammonia is high (9) Hypomagnesemia: Plan: 2 grams mag sulfate IV x 1 now. Repeat level later this evening. (10) DVT prophylaxis: Plan: SCDs defer on chemical means due to low platelets (11) Metabolic encephalopathy: Plan: 2nd to etoh withdrawal. elevated ammonia continue lactulose supportive care, treat the withdrawal, etc. Admission and Anticipated Discharge Date Admission Date: January 13, 2021 Subjective pt is sedated and was initiated on ativan gtt, remains on lamictal as was on pre hospital for seizures Review of Systems Review of Systems: Unobtainable due to cognitive status Physical Exam Physical Exam: The patient appeared sedated and comfortable does arouse to stimuli Vital signs as documented. Lungs are clear & appear unlabored Cardiac exam, Rhythm is regular.. No murmurs, rubs or gallops. Abdominal exam reveals normal bowel sounds, soft Extremities are nonedematous and both pedal pulses are normal. Results & Data Results & Data ([facility]) Vital Signs (Past 12 Hours) Vital Signs Pulse Resp BP Pulse Ox 01/14/21 04:00 67 41 H 169/114 H 97 01/14/21 03:00 67 24 169/114 H 98 11/07/21 02:00 66 22 173/116 H 96 01/14/21 01:00 EST 68 29 H 170/108 H 01/14/21 00:00 69 22 170/111 H 93 01/13/21 23:00 69 23 152/99 H 96 01/13/21 22:00 68 22 136/91 93 PG Care Time/CCT Total # of Minutes Spent Total Time Spent with Patient: Total time spent is greater than 50% in coordination of care (as documented) at patient's floor/unit and/or counseling patient: Coding Level of Care Code 87390 Subseq Hosp Care Lvl 2 Diagnoses Alcohol withdrawal F10.231 Complication of substance-induced condition: with delirium Alcohol withdrawal seizure F10.239; R56.9 Hypokalemia E87.6 High anion gap metabolic acidosis E87.2 Essential hypertension I10 Alcoholism F10.20 Thrombocytopenia D69.6 Abnormal LFTs R94.5 Hypomagnesemia E83.42 DVT prophylaxis Z29.9 Metabolic encephalopathy G93.41 (1) Alcohol withdrawal Complication of substance-induced condition: with delirium Qualified Code(s): F10.231 - Alcohol dependence with withdrawal delirium
[2021-01-14] MEDS: LORazepam 50 MG in D5W 250ML IN *POLYOLEFIN BAG* 25 ML IV SCH (08:42)
[2021-01-14] MEDS: LACTULOSE SYRUP 30 GM/45 ML UDP PO SCH ×3 (09:02→21:13)
[2021-01-14] MEDS: CEROVITE ADV FORMULA TAB PO SCH (09:03)
[2021-01-14] MEDS: lisinopril 20 MG TAB PO SCH (09:03)
[2021-01-14] MEDS: LACTULOSE 200 GM, WATER, STERILE IRRIG 700 ML, BARCODE IDENTIFIER 1 EA PR SCH ×2 (09:03→17:11)
[2021-01-14] MEDS: LACTULOSE SYRUP 20 GM/30 ML UDC PO SCH ×2 (09:03→14:53)
[2021-01-14] MEDS: FOLIC ACID 1 MG in SYRINGE 9.8 ML IV SCH (09:03)
[2021-01-14] MEDS: LACTULOSE PR SCH ×2 (09:03→14:53)
[2021-01-14] MEDS: lamoTRIgine 100 MG TAB PO SCH ×2 (09:03→21:13)
[2021-01-14] MEDS: THIAMINE HCL 200 MG in SODIUM CHLORIDE 0.9% 50 ML IV SCH ×2 (09:04→21:13)
--- NOTE | 2021-01-14 09:36 | Critical Care Progress Note ---
Date of Service January 14, 2021 Assessment & Plan (1) Delirium tremens: Plan: Reason Critically Ill: Patient admitted to ICU with refractory DTs and post alcohol withdrawal seizure, along with hepatic encephalopathy. Currently requiring continuous sedation with Precedex drip and AWSS with IV Ativan Neuro - Alcohol withdrawal/delirium tremens/acute encephalopathylikely mixed picture in the setting of hepatic encephalopathy with elevated ammonia, post witnessed alcohol withdrawal seizure, and refractory delirium tremens -CT head without acute intracranial findings -Elevated ammonia, continue lactulose -Currently on Precedex drip, will wean as tolerated. KELL score with IV Ativan protocol. Initiated IV Ativan drip at 1 mg/h. -Continue folate, multivitamin, thiamine -Continue Lamictal, questionable history of seizure disorder -Repleting electrolytes -Continue to monitor in ICU while requiring continuous sedation Cardiac - Currently normal sinus rhythm on telemetry No history of cardiac disease, troponin negative ICU vitals monitoring and continuous telemetry for now Respiratory - No history of pulmonary disease and no acute respiratory distress. Continuous monitoring pulse ox GI - PPI. Platelets decreased, ammonia elevated. Findings concerning for acute hepatitis/cirrhosis. GI consultation placed. Continue lactulose for hyperammonemia. We will start Xifaxan 550 mg twice daily. AST trending down. T bili stable at 2.2. Alkaline phosphatase improved from 252-185. N.p.o. due to concerns of aspiration. RENAL/LYTES - Hypokalemia, hypomagnesemia. We will repeat a BMP now. Currently on normal saline with potassium supplementation. We will hold fluids at this time and decide how to proceed based on BMP. - Strict I's and O's ENDO - No history of diabetes or thyroid disease ICU hyperglycemic protocol HEME - Platelet count trending down likely in the setting of cirrhosis Hold anticoagulation at this time. SCDs in place. Peripheral smear ordered. ID - Urinalysis unremarkable for infection. Blood cultures and procalcitonin ordered. If pro-Oni elevated, will initiate antibiotics. LINES/IV ACCESS - Peripheral IVs DVT PROPHYLAXIS - SCDs, hold on anticoagulation until platelet count improved I have personally spent 31 minutes of critical care time in the direct management of this patient. This is a life/limb threatening event. This includes time spent evaluating patient, direct bedside care, chart review, placing orders, interpretation of diagnostic studies, discussion with consultants, patient, and family members, as well as other required patient management activities. This time is exclusive of all separately billable procedures, and teaching time and separate from and in addition to any other critical care service time. Thank you for allowing us to participate in the care of this patient. Please refer to my attending physician's documentation for any further recommendations. (2) Metabolic encephalopathy: (3) Abnormal LFTs: (4) Hypomagnesemia: (5) DVT prophylaxis: (6) Thrombocytopenia: (7) High anion gap metabolic acidosis: (8) Alcoholism: (9) Alcohol withdrawal: (10) Essential hypertension: (11) Hypokalemia: (12) Alcohol withdrawal seizure: (13) Hepatic encephalopathy: Admission and Anticipated Discharge Date Admission Date: January 13, 2021 Subjective Patient seen and examined this morning. Very confused and at times combative per nursing. Currently on a Precedex drip. Receiving high amounts of Ativan overnight. Review of Systems Review of Systems: Unobtainable due to cognitive status Physical Exam Constitutional: + thin, + behavioral limitations and + diaphoretic Eyes: PERRL, conjunctivae normal, anicteric sclerae ENMT: external ear and nose normal, oropharynx normal Neck: trachea midline, no thyromegaly Respiratory: normal respiratory effort, lungs clear to auscultation Cardiovascular: RRR, no murmur, no edema Heart Sounds: normal S1 and normal S2 Gastrointestinal (Abdomen): normal bowel sounds, soft, nontender, no hepatosplenomegaly Musculoskeletal: no cyanosis or clubbing, extremities motor strength 5/5 Skin: no rashes, warm and dry Neurologic: PERRL, EOMI, accommodation nl, no face palsy, no dysarthria Psychiatric: Orientation: alert; + not oriented x 3 and + uncooperative Results & Data Results & Data ([facility]) Vital Signs (Past 12 Hours) Vital Signs Pulse Resp BP Pulse Ox 01/14/21 04:00 67 41 H 169/114 H 97 01/14/21 03:00 67 24 169/114 H 98 01/14/21 02:00 66 22 173/116 H 96 01/14/21 01:00 EST 68 29 H 170/108 H 01/14/21 00:00 69 22 170/111 H 93 01/13/21 23:00 69 23 152/99 H 96 Vital signs, labs and imaging reviewed Coding Level of Care Code Critical Care 1st 30-74 mins Diagnoses Delirium tremens F10.231 Metabolic encephalopathy G93.41 Abnormal LFTs R94.5 Hypomagnesemia E83.42 DVT prophylaxis Z29.9 Thrombocytopenia D69.6 High anion gap metabolic acidosis E87.2 Alcoholism F10.20 Alcohol withdrawal F10.231 Complication of substance-induced condition: with delirium Essential hypertension I10 Hypokalemia E87.6 Alcohol withdrawal seizure F10.239; R56.9 Hepatic encephalopathy K72.90 Time Spent (min) 31 (1) Alcohol withdrawal Complication of substance-induced condition: with delirium Qualified Code(s): F10.231 - Alcohol dependence with withdrawal delirium
[2021-01-14 10:41] LABS: BUN Creatinine Ratio 9.7 (10-20); Calcium 7.6 mg/dl (8.5-10.1); Creatinine Clr Calc Pharmacy 147.2 ml/min; Est GFR (African American) 133.2 ml/min; Est GFR (Non-African American) 114.9 ml/min; Potassium 3.4 mmol/L (3.5-5.1)
[2021-01-14] MEDS: rifAXIMin 550 MG TABLET PO SCH ×2 (11:33→21:13)
--- NOTE | 2021-01-14 11:59 | Gastrointestinal Consultation ---
Date of Consultation January 14, 2021 Assessment & Plan (1) Abnormal LFTs: Alcoholic liver disease, his MDF is very low at 2. His ALT is normal suggesting either no significant ongoing or complete Liver cirrhosis. His thrombocytopenia can also be seen with alcoholism and cirrhosis. At this point he does not qualify for therapy with Prednisone. There is no significant positive data for use of NAC or Pentoxifylline. His elevated Ammonia can be seen from Alcohol use Vs cirrhosis. Recommend: Nutritional support. DT management per ICU Thiamine and folic acid. Avoid Opioids. Can use PO or rectal Lactulose. Obtain Ultrasound abdomen to evaluate the spleen size which will indirectly evaluate portal HTN. Once his DTs resolve he will need follow up as OP in Hepatology clinic to further evaluate his degree of fibrosis by either a Liver Bx or Fibroscan. Recall GI if needed. (2) Alcoholic liver disease: History of Present Illness Reason for Consultation: Hepatitis Attending Physician: Ramon Jama MD History of Present Illness 45 years old male patient with Alcohol abuse, SZD, admitted to the ICU for DTs, currently on sedation, GI consulted for abnormal LFTs. Has AST>ALT consistent with alcoholic liver disease. Unable to obtain further history from the patient. Allergies Allergy/AdvReac Type Severity Reaction Status Date / Time No Known Allergies Allergy Mild Verified 01/13/21 14:44 Home Medications Medication Instructions Recorded Confirmed Type lamotrigine 150 mg tablet 150 mg PO BID 01/13/21 01/13/21 History (Lamictal) lisinopril 20 mg tablet (Prinivil) 20 mg PO QAM 01/13/21 01/13/21 History Patient History Medical History (Updated 01/14/21 @ 11:58 by Ramon Adams MD) Alcoholism Essential hypertension Seizures Surgical History (Updated 01/13/21 @ 15:35 by Bill Jernigan) No pertinent past surgical history Family History (Updated 01/13/21 @ 15:36 by Bill Jernigan) Father Skin cancer of face Denies family history of Alcoholism Seizure disorder Social History (Updated 01/13/21 @ 15:38 by Bill Jernigan) Smoking Status: Current every day smoker Cigarettes Per Day: 20; Hx Alcohol Use: Yes Alcohol type: beer, wine and hard liquor Alcohol type Comment: DAILY consumption, mixture of bottle of wine, bottle of liquor, and/or beer Hx Substance Use: No Preferred Language: Swiss 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 Beliefs That Will Affect Care: None marital status: marital status details: x 2 Current Living Situation: Parent Current Living Situation Comment: lives w/ father in [place] current occupational status: 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 [place] How many Children do You have: 0 Other Information That Helps Us Care for You: No Feels Safe at Home: Yes Safety Concerns: Feels Safe At This Time Assistive Devices: Denture - Upper, Denture - Lower and Glasses Review of Systems Review of Systems: Unable to obtain Physical Exam Constitutional: comfortable; no acute distress Respiratory: normal respiratory effort, lungs clear to auscultation Cardiovascular: RRR, no murmur, no edema Gastrointestinal (Abdomen): normal bowel sounds, soft, nontender, no hepatosplenomegaly Results & Data ([facility]) Vital Signs (Past 12 Hours) Vital Signs Pulse Resp BP Pulse Ox 01/14/21 04:00 67 41 H 169/114 H 97 01/14/21 03:00 67 24 169/114 H 98 01/14/21 02:00 66 22 173/116 H 96 01/14/21 01:00 EST 68 29 H 170/108 H Laboratory Results Laboratory Results - last 24 hr 01/13/21 01/13/21 01/13/21 13:00 13:00 13:13 WBC 6.06 RBC 3.44 L Hgb 13.5 L Hct 40.1 L MCV 116.6 H MCH 39.2 H MCHC 33.7 RDW Std Deviation 61.7 H RDW Coeff of Amena 14.3 Plt Count 81 L MPV 11.2 H Immature Gran % (Auto) 0.2 Neut % (Auto) 60.5 Lymph % (Auto) 27.7 [place] % (Auto) 10.9 Eos % (Auto) 0.2 Baso % (Auto) 0.5 Neut # (Auto) 3.67 Lymph # (Auto) 1.68 [place] # (Auto) 0.66 H Eos # (Auto) 0.01 Baso # (Auto) 0.03 Immature Gran # (Auto) 0.01 Macrocytosis Present Peripher Smr Path Cons PT INR Sodium 138 Potassium 2.8 L Chloride 98 Carbon Dioxide 13 L Anion Gap 27.0 H BUN 4 L Creatinine 0.87 Est Cr Clr Drug Dosing Not Reportable Est GFR ( Amer) 122.5 Est GFR (Non-Af Amer) 105.7 BUN/Creatinine Ratio 5.1 L Glucose 130 H Lactate Calcium 8.7 Phosphorus Magnesium 1.7 L Total Bilirubin 2.1 H Direct Bilirubin 1.0 H AST 130 H ALT 38 Alkaline Phosphatase 252 H Ammonia Total Creatine Kinase Troponin I < 0.015 Total Protein 10.2 H Albumin 4.2 Lipase Vitamin B12 Folate Procalcitonin Urine Color Urine Appearance Urine pH Ur Specific [place] Urine Protein Urine Glucose (UA) Urine Ketones Urine Blood Urine Nitrite Urine Bilirubin Urine Urobilinogen Ur Leukocyte Esterase Urine WBC (Auto) Urine RBC (Auto) U Hyaline Cast (Auto) U Epithel Cells (Auto) Urine Bacteria (Auto) Nasal Screen MRSA (PCR) Ethyl Alcohol mg/dL 30.0 H COVID-19 Eval Order SARS-CoV-2 (PCR) 01/13/21 01/13/21 01/13/21 13:13 14:04 14:04 WBC RBC Hgb Hct MCV MCH MCHC RDW Std Deviation RDW Coeff of Amena Plt Count MPV Immature Gran % (Auto) Neut % (Auto) Lymph % (Auto) [place] % (Auto) Eos % (Auto) Baso % (Auto) Neut # (Auto) Lymph # (Auto) [place] # (Auto) Eos # (Auto) Baso # (Auto) Immature Gran # (Auto) Macrocytosis Peripher Smr Path Cons PT INR Sodium Potassium Chloride Carbon Dioxide Anion Gap BUN Creatinine Est Cr Clr Drug Dosing Est GFR ( Amer) Est GFR (Non-Af Amer) BUN/Creatinine Ratio Glucose Lactate Calcium Phosphorus Magnesium Total Bilirubin Direct Bilirubin AST ALT Alkaline Phosphatase Ammonia Total Creatine Kinase 576 H Troponin I Total Protein Albumin Lipase 203 Vitamin B12 Folate Procalcitonin Urine Color Urine Appearance Urine pH Ur Specific [place] Urine Protein Urine Glucose (UA) Urine Ketones Urine Blood Urine Nitrite Urine Bilirubin Urine Urobilinogen Ur Leukocyte Esterase Urine WBC (Auto) Urine RBC (Auto) U Hyaline Cast (Auto) U Epithel Cells (Auto) Urine Bacteria (Auto) Nasal Screen MRSA (PCR) Ethyl Alcohol mg/dL COVID-19 Eval Order Covid19 at [facility] SARS-CoV-2 (PCR) NEGATIVE 01/13/21 01/13/21 01/13/21 15:40 16:00 16:45 WBC RBC Hgb Hct MCV MCH MCHC RDW Std Deviation RDW Coeff of Amena Plt Count MPV Immature Gran % (Auto) Neut % (Auto) Lymph % (Auto) [place] % (Auto) Eos % (Auto) Baso % (Auto) Neut # (Auto) Lymph # (Auto) [place] # (Auto) Eos # (Auto) Baso # (Auto) Immature Gran # (Auto) Macrocytosis Peripher Smr Path Cons PT 11.9 INR 1.2 H Sodium Potassium Chloride Carbon Dioxide Anion Gap BUN Creatinine Est Cr Clr Drug Dosing Est GFR ( Amer) Est GFR (Non-Af Amer) BUN/Creatinine Ratio Glucose Lactate 1.0 Calcium Phosphorus Magnesium Total Bilirubin Direct Bilirubin AST ALT Alkaline Phosphatase Ammonia Total Creatine Kinase Troponin I Total Protein Albumin Lipase Vitamin B12 Folate Procalcitonin Urine Color Yellow Urine Appearance Clear Urine pH 7.0 Ur Specific [place] 1.013 Urine Protein 2+ H Urine Glucose (UA) Negative Urine Ketones 1+ H Urine Blood 1+ H Urine Nitrite Negative Urine Bilirubin Negative Urine Urobilinogen Negative Ur Leukocyte Esterase Negative Urine WBC (Auto) 0 Urine RBC (Auto) 0-4 U Hyaline Cast (Auto) 0 U Epithel Cells (Auto) 10-20 H Urine Bacteria (Auto) Negative Nasal Screen MRSA (PCR) Ethyl Alcohol mg/dL COVID-19 Eval Order SARS-CoV-2 (PCR) 01/13/21 01/13/21 01/13/21 16:45 16:45 19:05 WBC RBC Hgb Hct MCV MCH MCHC RDW Std Deviation RDW Coeff of Amena Plt Count MPV Immature Gran % (Auto) Neut % (Auto) Lymph % (Auto) [place] % (Auto) Eos % (Auto) Baso % (Auto) Neut # (Auto) Lymph # (Auto) [place] # (Auto) Eos # (Auto) Baso # (Auto) Immature Gran # (Auto) Macrocytosis Peripher Smr Path Cons PT INR Sodium Potassium Chloride Carbon Dioxide Anion Gap BUN Creatinine Est Cr Clr Drug Dosing Est GFR ( Amer) Est GFR (Non-Af Amer) BUN/Creatinine Ratio Glucose Lactate Calcium Phosphorus Magnesium Total Bilirubin Direct Bilirubin AST ALT Alkaline Phosphatase Ammonia 116.0 H Total Creatine Kinase Troponin I Total Protein Albumin Lipase Vitamin B12 634 Folate > 20.00 Procalcitonin Urine Color Urine Appearance Urine pH Ur Specific [place] Urine Protein Urine Glucose (UA) Urine Ketones Urine Blood Urine Nitrite Urine Bilirubin Urine Urobilinogen Ur Leukocyte Esterase Urine WBC (Auto) Urine RBC (Auto) U Hyaline Cast (Auto) U Epithel Cells (Auto) Urine Bacteria (Auto) Nasal Screen MRSA (PCR) Negative Ethyl Alcohol mg/dL COVID-19 Eval Order SARS-CoV-2 (PCR) 01/13/21 01/14/21 01/14/21 19:53 05:14 05:14 WBC 3.35 L RBC 2.83 L Hgb 11.1 L Hct 32.9 L MCV 116.3 H MCH 39.2 H MCHC 33.7 RDW Std Deviation 61.3 H RDW Coeff of Amena 14.4 Plt Count 37 L D MPV 10.3 Immature Gran % (Auto) 0.0 Neut % (Auto) 59.1 Lymph % (Auto) 32.8 [place] % (Auto) 6.9 Eos % (Auto) 0.9 Baso % (Auto) 0.3 Neut # (Auto) 1.98 Lymph # (Auto) 1.10 L [place] # (Auto) 0.23 Eos # (Auto) 0.03 Baso # (Auto) 0.01 Immature Gran # (Auto) 0.00 Macrocytosis Present Peripher Smr Path Cons SMEAR REVIEWED BY PATHOLOGIST. PT INR Sodium 138 138 Potassium 3.3 L D 3.3 L Chloride 106 107 Carbon Dioxide 23 24 Anion Gap 10.0 7.0 BUN 6 L 7 Creatinine 0.72 0.67 Est Cr Clr Drug Dosing 145.2 156.0 Est GFR ( Amer) 132.4 136.4 Est GFR (Non-Af Amer) 114.3 117.7 BUN/Creatinine Ratio 7.7 L 10.5 Glucose 125 H 113 H Lactate Calcium 7.6 L 7.5 L Phosphorus 1.6 L 2.4 L Magnesium 2.4 2.2 Total Bilirubin 2.2 H Direct Bilirubin 0.9 H AST 94 H ALT 29 Alkaline Phosphatase 185 H Ammonia Total Creatine Kinase Troponin I Total Protein 8.0 D Albumin 3.1 L Lipase Vitamin B12 Folate Procalcitonin Urine Color Urine Appearance Urine pH Ur Specific [place] Urine Protein Urine Glucose (UA) Urine Ketones Urine Blood Urine Nitrite Urine Bilirubin Urine Urobilinogen Ur Leukocyte Esterase Urine WBC (Auto) Urine RBC (Auto) U Hyaline Cast (Auto) U Epithel Cells (Auto) Urine Bacteria (Auto) Nasal Screen MRSA (PCR) Ethyl Alcohol mg/dL COVID-19 Eval Order SARS-CoV-2 (PCR) 01/14/21 01/14/21 01/14/21 05:14 09:35 09:35 WBC RBC Hgb Hct MCV MCH MCHC RDW Std Deviation RDW Coeff of Amena Plt Count MPV Immature Gran % (Auto) Neut % (Auto) Lymph % (Auto) [place] % (Auto) Eos % (Auto) Baso % (Auto) Neut # (Auto) Lymph # (Auto) [place] # (Auto) Eos # (Auto) Baso # (Auto) Immature Gran # (Auto) Macrocytosis Peripher Smr Path Cons Cancelled PT INR Sodium Potassium Chloride Carbon Dioxide Anion Gap BUN Creatinine Est Cr Clr Drug Dosing Est GFR ( Amer) Est GFR (Non-Af Amer) BUN/Creatinine Ratio Glucose Lactate Calcium Phosphorus Magnesium Total Bilirubin Direct Bilirubin AST ALT Alkaline Phosphatase Ammonia 134.0 H Total Creatine Kinase Troponin I Total Protein Albumin Lipase Vitamin B12 Folate Procalcitonin 0.08 Urine Color Urine Appearance Urine pH Ur Specific [place] Urine Protein Urine Glucose (UA) Urine Ketones Urine Blood Urine Nitrite Urine Bilirubin Urine Urobilinogen Ur Leukocyte Esterase Urine WBC (Auto) Urine RBC (Auto) U Hyaline Cast (Auto) U Epithel Cells (Auto) Urine Bacteria (Auto) Nasal Screen MRSA (PCR) Ethyl Alcohol mg/dL COVID-19 Eval Order SARS-CoV-2 (PCR) 01/14/21 09:41 WBC RBC Hgb Hct MCV MCH MCHC RDW Std Deviation RDW Coeff of Amena Plt Count MPV Immature Gran % (Auto) Neut % (Auto) Lymph % (Auto) [place] % (Auto) Eos % (Auto) Baso % (Auto) Neut # (Auto) Lymph # (Auto) [place] # (Auto) Eos # (Auto) Baso # (Auto) Immature Gran # (Auto) Macrocytosis Peripher Smr Path Cons PT INR Sodium 139 Potassium 3.4 L Chloride 108 H Carbon Dioxide 23 Anion Gap 8.0 BUN 7 Creatinine 0.71 Est Cr Clr Drug Dosing 147.2 Est GFR ( Amer) 133.2 Est GFR (Non-Af Amer) 114.9 BUN/Creatinine Ratio 9.7 L Glucose 135 H Lactate Calcium 7.6 L Phosphorus Magnesium Total Bilirubin Direct Bilirubin AST ALT Alkaline Phosphatase Ammonia Total Creatine Kinase Troponin I Total Protein Albumin Lipase Vitamin B12 Folate Procalcitonin Urine Color Urine Appearance Urine pH Ur Specific [place] Urine Protein Urine Glucose (UA) Urine Ketones Urine Blood Urine Nitrite Urine Bilirubin Urine Urobilinogen Ur Leukocyte Esterase Urine WBC (Auto) Urine RBC (Auto) U Hyaline Cast (Auto) U Epithel Cells (Auto) Urine Bacteria (Auto) Nasal Screen MRSA (PCR) Ethyl Alcohol mg/dL COVID-19 Eval Order SARS-CoV-2 (PCR)
[2021-01-14] MEDS: PANTOprazole 40 MG in SYRINGE 0 ML IV SCH (13:13)
[2021-01-14] MEDS: hydrALAZINE HCL 20 MG/ML VIAL IV PRN (13:14)
[2021-01-14 17:27] LABS: BUN Creatinine Ratio 12.4 (10-20); Calcium 7.9 mg/dl (8.5-10.1); Creatinine Clr Calc Pharmacy 174.2 ml/min; Est GFR (African American) 142.7 ml/min; Est GFR (Non-African American) 123.1 ml/min; Potassium 3.4 mmol/L (3.5-5.1)
[2021-01-14] MEDS: POTASSIUM CHLORIDE CRTAB 20 MEQ TABCR PO SCH ×2 (18:07→21:13)
[2021-01-14] MEDS: ICU ELECTROLYTE REPLACEMENT PROTOCOL SCH (18:12)
[2021-01-15] MEDS: DEXMEDETOMIDINE HCL 200 MCG in SODIUM CHLORIDE 0.9% 48 ML IV SCH ×5 (01:23→18:11)
[2021-01-15] MEDS: LACTULOSE PR SCH ×2 (01:24→11:30)
[2021-01-15] MEDS: LACTULOSE 200 GM, WATER, STERILE IRRIG 700 ML, BARCODE IDENTIFIER 1 EA PR SCH ×2 (01:24→11:29)
[2021-01-15] MEDS: LORazepam 3 MG/6 ML VIAL IV PRN (02:36)
[2021-01-15 03:20] LABS: BUN Creatinine Ratio 15.5 (10-20); Calcium 7.9 mg/dl (8.5-10.1); Creatinine Clr Calc Pharmacy 177.2 ml/min; Est GFR (African American) 143.7 ml/min; Potassium 3.2 mmol/L (3.5-5.1)
[2021-01-15 04:46] LABS: Hematocrit (blood only) 33.1 % (42-52); Hemoglobin 11.6 g/dL (14.0-18.0); Mean Corpuscular Hemoglobin 39.5 pg (25-34); Mean Corpuscular Volume 112.6 fL (80-100); RDW Coefficient of Variation 14.1 % (11.5-14.5); RDW Standard Deviation 58.4 fL (36.4-46.3); Red Blood Count 2.94 M/uL (4.7-6.1); White Blood Count 4.21 K/uL (4.8-10.8)
[2021-01-15 04:55] LABS: Mean Platelet Volume 11.7 fL (7.4-10.4); Platelet Count 43 K/uL (130-400)
[2021-01-15 05:13] LABS: Basophils # (auto) 0.01 K/uL (0-0.2); Basophils % (auto) 0.2 %; Eosinophils # (auto) 0.05 K/uL (0-0.5); Eosinophils % (auto) 1.2 %; Immature Granulocytes # (auto) 0.01 K/uL (0.00-0.02); Immature Granulocytes % (auto) 0.2 %; Lymphocytes % (auto) 21.4 %; Macrocytosis Present; Monocytes # (auto) 0.33 K/uL (0.11-0.59); Monocytes % (auto) 7.8 %; Neutrophils # (auto) 2.91 K/uL (1.4-6.5); Neutrophils % (auto) 69.2 %
[2021-01-15 05:14] LABS: Albumin Level 3.2 gm/dl (3.4-5.0); BUN Creatinine Ratio 14.7 (10-20); Bilirubin Direct 1.3 mg/dl (0-0.2); Bilirubin,Total 2.5 mg/dl (0.2-1); Calcium 8.2 mg/dl (8.5-10.1); Creatinine Clr Calc Pharmacy 171.4 ml/min; Est GFR (African American) 141.8 ml/min; Est GFR (Non-African American) 122.3 ml/min; Magnesium 1.9 mg/dl (1.8-2.4); Phosphorus 1.8 mg/dl (2.5-4.9); Potassium 3.5 mmol/L (3.5-5.1); Total Protein 8.1 gm/dl (6.4-8.2)
[2021-01-15] MEDS ORDERED: POTASSIUM PHOS 3 MMOL/1 ML INFUSION IV STA (06:05)
[2021-01-15] MEDS ORDERED: POTASSIUM PHOSPHATE 15 MMOL in SODIUM CHLORIDE 0.9% 250 ML IV ONE (06:15)
[2021-01-15] MEDS: ICU ELECTROLYTE REPLACEMENT PROTOCOL SCH ×2 (06:23→18:14)
--- NOTE | 2021-01-15 07:44 | Critical Care Progress Note ---
Date of Service January 15, 2021 Assessment & Plan (1) Delirium tremens: Plan: Reason Critically Ill: 45-year-old male here with a PMHx significant for severe alcohol use disorder, possible seizure disorder (vs seizures 2/2 alcohol withdrawal) and HTN who presented to [facility] on 01/13 after a witnessed seizure at home and who was admitted to the ICU on 01/13 for acute encephalopathy due to delirium tremens and hepatic encephalopathy. Neuro - [facility] ICU: POSITIVE Acute encephalopathy, 2/2 delirium tremens and hepatic encephalopathy. Overall condition mildly improved today. - NH3 down from 134 to 74 today: continue Rifaximin 550mg PO BID and decrease Lactulose to 30mg PO BID - continue Precedex gtt - continue Ativan gtt: 1mg/hr - will add Ativan 2mg PO Q6H in attempt to begin transition to PO - continue AWSS protocol with PRN Ativan IV - continue Thiamine 200mg IV BID and folic acid 1mg IV QAM - will discuss inpatient rehab once patient's mental status improves Cardiac - Hypertension, with elevated BPs 170s-180s/100s-110s. Likely acute on chronic in setting of alcohol withdrawal. - continue home Lisinopril 20mg PO QAM - Hydralazine 10mg IV Q6H PRN for SBP >160 Respiratory - No respiratory issues, satting well on room air. GI - 1. Hepatic encephalopathy: improving as stated above. - continue Rifaximin/Lactulose as stated above - GI consulted - no indication for steroids, NAC or pentoxifylline 2. Hepatic steatosis (without evidence of overt cirrhosis): per US liver this hospitalization. - recommend hepatology f/u as outpatient, with full abdominal US to assess for splenomegaly and signs of portal HTN 3. Direct Hyperbilirubinemia and Transaminitis. Slightly increased this morning. Suspect component of alcoholic hepatitis with possible developing cirrhosis as well, although not visualized on US. No signs of bile duct obstruction on US. - no steroids as previously stated - continue to trend 4. start regular diet today RENAL/LYTES - 1. Hypokalemia/Hypomagnesemia/Hypophosphatemia. Likely due to significant alcohol use and resultant malnutrition. - continue to replace as needed 2. Elevated AG Metabolic Acidosis, improving. Likely due to alcohol as well as lactic acidosis s/p seizure. - Strict I/Os. Continue urinary callejas catheter. ENDO - No history of diabetes or thyroid disease. HEME - Aplastic anemia: Likely due to myelosuppression in setting of severe alcohol abuse but may also be due to ?cirrhosis vs possible infection such as EBV/CMV. - peripheral smear without abnormal cell morphologies - no anti-coagulation for now - will hold on EBV/CMV testing for now; consider at later time ID - No concerns for infection at this point. - Monitor fever curve LINES/IV ACCESS - PIVs and callejas intact. DVT PROPHYLAXIS - SCDs. Hold chemoppx due to thrombocytopenia. GI PROPHYLAXIS - None indicated; stopped Protonix today. Thank you for allowing us to be part of this patient's care. Please refer to Dr. Daly's documentation for any further recommendations. (2) Metabolic encephalopathy: (3) Hepatic encephalopathy: (4) Alcoholic liver disease: (5) Abnormal LFTs: (6) Thrombocytopenia: (7) High anion gap metabolic acidosis: (8) Essential hypertension: Admission and Anticipated Discharge Date Admission Date: January 13, 2021 Supervising Physician Co-Signing Physician Notes Patient seen and examined. EMR reviewed. Discussed with off going family engagement specialist and with family [facility] resident. Agree with assessment plan as noted. The patient was discussed on multidisciplinary rounds with pharmacy, bedside critical care nurse, and other ancillary specialties. We will attempt to try and wean the patient's sedative agents. Discontinue the Ativan drip and go to scheduled p.o. We will back down on his lactulose as he is having frequent bowel movements. Continue rifaximin. If he does well, we will attempt to wean the Precedex. Continue high-dose thiamine at this point time. Okay to advance diet. Discontinue Callejas catheter. Depending on his mental status, will try and get him up out of bed as tolerated. He will require alcohol rehab counseling prior to discharge. This was briefly reviewed with case management on multidisciplinary rounds. Appreciate GI recommendations. Will require additional imaging of his abdomen once he is clinically stable as well as follow-up in the outpatient setting with GI. Keep in the ICU until the patient is able to be weaned off of the Precedex infusion. Subjective Patient received Ativan 3mg IV PRN on top of Precedex/Ativan gtt overnight. Last AWSS 7 at ~8am. This morning the patient is somnolent and not very talkative. Immediately upon initiation of conversation he said "I know, I know, I'm in the hospital". Denies visual/auditory hallucinations, but reports seeing three people in our room (there were only 2 besides for him). Denies current anxiety. Review of Systems Review of Systems: Denies fever/chills, chest pain, palpitations, SOB, N/V, abdominal pain. Physical Exam Physical Exam: General: A&O to self, place and year only. NAD. Somnolent. Cooperative. HEENT: Atraumatic, normocephalic. Pulm: +upper transmitted airway sounds, -wheezes, -rales, -rhonchi. Symmetrical chest rise. No increase work of breathing. No respiratory distress. Cardiac: RRR, -mrg. Radial pulses intact and symmetrical. No LE edema. Abdominal: soft, non-tender, non-distended, hyperactive BS x 4 Skin: warm, dry, no rash Neuro: +bilateral UE tremors more pronounced with movement Psych: minimally talkative, poor eye contact, denies anxiety, affect is constricted, does not appear to be responding to internal stimuli but does have visual hallucinations Results & Data Results & Data ([facility]) Vital Signs (Past 12 Hours) Vital Signs Temp Pulse Resp BP Pulse Ox 01/15/21 05:00 68 24 175/110 H 95 01/15/21 04:00 36.6 C 63 24 171/116 H 95 01/15/21 03:00 81 15 96 01/15/21 02:00 61 31 H 171/100 H 90 01/15/21 01:00 67 22 93 01/15/21 00:00 72 23 182/109 H 91 01/14/21 23:00 73 25 H 136/91 91 01/14/21 22:00 88 18 124/93 88 L 01/14/21 21:00 74 14 162/97 H 95 01/14/21 20:00 69 24 143/93 H 99 Resident Activity Tracking Resident Involvement: Resident Care Provided Care Provided: Adult Hospital Medicine
[2021-01-15] MEDS: hydrALAZINE HCL 20 MG/ML VIAL IV PRN ×2 (07:53→19:43)
[2021-01-15] MEDS: POTASSIUM CHLORIDE CRTAB 20 MEQ TABCR PO SCH ×2 (08:04→11:41)
[2021-01-15] MEDS: MAGNESIUM SULFATE / D5W 1 GM/100 ML BAG IV SCH ×2 (08:04→10:04)
[2021-01-15] MEDS: lamoTRIgine 100 MG TAB PO SCH ×2 (08:04→19:42)
[2021-01-15] MEDS: rifAXIMin 550 MG TABLET PO SCH ×2 (08:05→19:41)
[2021-01-15] MEDS: lisinopril 20 MG TAB PO SCH (08:05)
[2021-01-15] MEDS: THIAMINE HCL 200 MG in SODIUM CHLORIDE 0.9% 50 ML IV SCH ×2 (08:05→19:56)
[2021-01-15] MEDS: CEROVITE ADV FORMULA TAB PO SCH (08:05)
[2021-01-15] MEDS: LACTULOSE SYRUP 30 GM/45 ML UDP PO SCH ×2 (08:05→22:14)
[2021-01-15] MEDS: FOLIC ACID 1 MG in SYRINGE 9.8 ML IV SCH (08:06)
[2021-01-15] MEDS: LORazepam 2 MG/4 ML VIAL IV PRN ×5 (08:28→22:39)
[2021-01-15] MEDS ORDERED: PANTOprazole 40 MG TAB PO STA (10:37)
[2021-01-15] MEDS: LORazepam 50 MG in D5W 250ML IN *POLYOLEFIN BAG* 25 ML IV SCH (11:29)
[2021-01-15] MEDS: LORazepam 1 MG TAB PO SCH ×3 (11:40→19:42)
--- NOTE | 2021-01-15 11:53 | Billing Data ---
Date of Service January 15, 2021 Coding Level of Care Code 06672 Subseq Hosp Care Lvl 3
--- NOTE | 2021-01-15 19:09 | Hospitalist Progress Note ---
Date of Service January 15, 2021 Assessment & Plan (1) Alcohol withdrawal: Plan: Freddie is a 45-year-old male with a history of alcohol withdrawal and seizure in the ER who is admitted for severe alcohol withdrawal and currently under care in the intensive care unit Severe alcohol withdrawal with DTs/seizure Observe seizure while in ER On Ativan drip, KELL S Ativan, and Precedex drip this morning. Ativan GTT discontinued, patient remains on KELL S Ativan and Precedex Last reported alcohol 3-4 days prior to admission but with measurable alcohol in ER Continue high-dose thiamine 200 mg IV twice daily Continue folic acid 1 mg IV daily MVI Primary care provider by ICU team, appreciate recommendations and assistance (2) Alcohol withdrawal seizure: Plan: s/p ativan in the ER. seizure disorder Continue Lamictal ICU electrolyte protocol (3) Hypokalemia: Plan: IC electrolyte protocol (4) High anion gap metabolic acidosis: Plan: now resolved Cont IV fluids, lactate from seizure possible also (5) Essential hypertension: Plan: Continue SHERMAN. BPs elevated due to the withdrawal itself. may need beta miranda or clonidine. (6) Alcoholism: Plan: case management to refer to outpt rehab Withdrawal management as above (7) Thrombocytopenia: Plan: Likely 2nd to direct toxic effects of alcohol. (8) Abnormal LFTs: Plan: Likely alcoholic hepatitis. Ammonia downtrending to 7411/8 AST equivocal, 102 today (9) Hypomagnesemia: Plan: Pleat per ICU repletion protocol (10) DVT prophylaxis: Plan: SCDs defer on chemical means due to low platelets (11) Metabolic encephalopathy: Plan: 2nd to etoh withdrawal. elevated ammonia continue lactulose supportive care, treat the withdrawal, etc. Rifaximin twice daily Admission and Anticipated Discharge Date Admission Date: January 13, 2021 Subjective Patient seen in the ICU at bedside. History somewhat limited by somnolence, but patient transiently arouses to voice and follows one-step commands and answer some questions before falling asleep. Reports he feels less shaky today than previous, remains fatigued and slightly tremulous. Denies pain. Denies headache. Review of Systems Review of Systems: Unobtainable due to reduced consciousness (Grossly negative except as noted in subjective, but somewhat limited by sedation) Physical Exam Physical Exam: General: Somnolent, arouses to voice. Oriented to month, name, and place. HEENT: Atraumatic, normocephalic. Dual acuity and hearing grossly intact. Pulm: CTAB A&P. -wheezes, -rales, -rhonchi. Symmetrical chest rise. No increase work of breathing. No respiratory distress. Cardiac: RRR, -mrg. Radial pulses intact and symmetrical. Abdominal: Nontender, nondistended, soft. BS present. Extremities: Tremulous with exaggerated tremor on finger-nose testing, patient able to voluntarily quite tremor. Radial pulse intact bilaterally. Gunner'S Mate M strength and hip flexion 5/5 bilaterally. Results & Data Results & Data ([facility]) Vital Signs (Past 12 Hours) Vital Signs Pulse 01/15/21 09:00 68 01/15/21 08:00 68 PG Care Time/CCT Total # of Minutes Spent Total Time Spent with Patient: Total time spent is greater than 50% in coordination of care (as documented) at patient's floor/unit and/or counseling patient: Coding Level of Care Code 47570 Subseq Hosp Care Lvl 1 Diagnoses Alcohol withdrawal F10.231 Complication of substance-induced condition: with delirium Alcohol withdrawal seizure F10.239; R56.9 Hypokalemia E87.6 High anion gap metabolic acidosis E87.2 Essential hypertension I10 Alcoholism F10.20 Thrombocytopenia D69.6 Abnormal LFTs R94.5 Hypomagnesemia E83.42 DVT prophylaxis Z29.9 Metabolic encephalopathy G93.41 (1) Alcohol withdrawal Complication of substance-induced condition: with delirium Qualified Code(s): F10.231 - Alcohol dependence with withdrawal delirium
[2021-01-16] MEDS: LORazepam 1 MG TAB PO SCH ×3 (00:11→08:37)
[2021-01-16] MEDS: DEXMEDETOMIDINE HCL 200 MCG in SODIUM CHLORIDE 0.9% 48 ML IV SCH ×7 (01:15→20:52)
[2021-01-16] MEDS: LORazepam 2 MG/4 ML VIAL IV PRN (02:30)
[2021-01-16] MEDS: hydrALAZINE HCL 20 MG/ML VIAL IV PRN (02:36)
[2021-01-16 06:02] LABS: Hematocrit (blood only) 32.8 % (42-52); Hemoglobin 11.5 g/dL (14.0-18.0); Mean Corpuscular Hemoglobin 39.1 pg (25-34); Mean Corpuscular Hgb Conc 35.1 g/dL (32-36); Mean Corpuscular Volume 111.6 fL (80-100); RDW Coefficient of Variation 14.3 % (11.5-14.5); RDW Standard Deviation 57.7 fL (36.4-46.3); Red Blood Count 2.94 M/uL (4.7-6.1); White Blood Count 4.84 K/uL (4.8-10.8)
[2021-01-16 06:16] LABS: Mean Platelet Volume 11.3 fL (7.4-10.4); Platelet Count 55 K/uL (130-400)
[2021-01-16 06:30] LABS: Eosinophils # (auto) 0.02 K/uL (0-0.5); Eosinophils % (auto) 0.4 %; Immature Granulocytes # (auto) 0.01 K/uL (0.00-0.02); Immature Granulocytes % (auto) 0.2 %; Lymphocytes # (auto) 0.97 K/uL (1.2-3.4); Macrocytosis Present; Monocytes # (auto) 0.62 K/uL (0.11-0.59); Monocytes % (auto) 12.8 %; Neutrophils # (auto) 3.22 K/uL (1.4-6.5); Neutrophils % (auto) 66.6 %
[2021-01-16 06:51] LABS: Albumin Level 3.2 gm/dl (3.4-5.0); BUN Creatinine Ratio 12.1 (10-20); Bilirubin,Total 2.1 mg/dl (0.2-1); Calcium 8.9 mg/dl (8.5-10.1); Creatinine Clr Calc Pharmacy 171.4 ml/min; Est GFR (African American) 141.8 ml/min; Est GFR (Non-African American) 122.3 ml/min; Magnesium 1.8 mg/dl (1.8-2.4); Phosphorus 2.3 mg/dl (2.5-4.9); Potassium 3.2 mmol/L (3.5-5.1); Total Protein 8.3 gm/dl (6.4-8.2)
[2021-01-16] MEDS ORDERED: POTASSIUM CHLORIDE CRTAB 20 MEQ TABCR PO STA (07:16)
[2021-01-16] MEDS ORDERED: POTASSIUM PHOS 3 MMOL/1 ML INFUSION IV STA (07:16)
[2021-01-16] MEDS ORDERED: POTASSIUM PHOSPHATE 15 MMOL in SODIUM CHLORIDE 0.9% 250 ML IV ONE (07:30)
--- NOTE | 2021-01-16 07:32 | Hospitalist Progress Note ---
Date of Service January 16, 2021 Assessment & Plan (1) Alcohol withdrawal: Plan: Freddie is a 45-year-old male with a history of alcohol withdrawal and seizure in the ER who is admitted for severe alcohol withdrawal and currently under care in the intensive care unit Severe alcohol withdrawal with DTs/seizure Observed seizure while in ER 12/15: On Ativan drip, KELL S Ativan, and Precedex drip this morning. Ativan GTT discontinued, patient remains on KELL S Ativan and Precedex - 12/16: On Precedex 0.4mcg/kg/hr, Ativan AWSS. Continues to score and tremulous on exam Last reported alcohol 3-4 days prior to admission but with measurable alcohol in ER Continue high-dose thiamine 200 mg IV twice daily Continue folic acid 1 mg IV daily MVI Patient progressing, will require down titration and discontinuation of Precedex drip prior to being stable for downgrade (2) Alcohol withdrawal seizure: Plan: - s/p ativan in the ER. - hx seizure disorder - Continue Lamictal 100mg PO BID - ICU electrolyte protocol (3) Hypokalemia: Plan: ICU electrolyte protocol (4) High anion gap metabolic acidosis: Plan: now resolved Cont IV fluids, lactate from seizure possible also (5) Essential hypertension: Plan: Continue SHERMAN. BPs elevated due to the withdrawal itself. may need beta miranda or clonidine. (6) Alcoholism: Plan: case management to refer to outpt rehab Withdrawal management as above (7) Thrombocytopenia: Plan: suspect 2/2 direct toxic effects of alcohol. (8) Abnormal LFTs: Plan: Hepatic US: Increased hepatic echogenicity. This favors hepatic steatosis. Liver not overtly cirrhotic however superimposed hepatocellular disease cannot be excluded. No gallstones or biliary duct dilatation. Likely alcoholic hepatitis. Ammonia downtrending 01/15 AST/Bili downtrending 01/16 (9) Hypomagnesemia: Plan: Pleat per ICU repletion protocol (10) DVT prophylaxis: Plan: SCDs defer on chemical means due to low platelets (11) Metabolic encephalopathy: Plan: -2nd to etoh withdrawal. - CT-H: Naf -elevated ammonia, downtrending -continue lactulose -Rifaximin twice daily -supportive care, treat the withdrawal, etc. Admission and Anticipated Discharge Date Admission Date: January 13, 2021 Subjective Patient seen at bedside. Remains tremulous, remains on Precedex drip. Denies pain, endorses feeling fatigued. Denies hallucinations. Remembers provider, oriented to hospital, name, month, and year and falls back asleep intermittently during discussion. Review of Systems Review of Systems: Limited by somnolence, grossly denies review of symptoms except as noted above. Physical Exam Physical Exam: General: Somnolent, arouses to voice. Oriented to month, name, year, and place. HEENT: Atraumatic, normocephalic. Dual acuity and hearing grossly intact. Pulm: CTAB A&P. -wheezes, -rales, -rhonchi. Symmetrical chest rise. No increase work of breathing. No respiratory distress. Cardiac: RRR, -mrg. Radial pulses intact and symmetrical. Abdominal: Nontender, nondistended, soft. BS present. Extremities: Tremulous in hands and legs at rest, patient able to voluntarily quiet tremor somewhat. Radial pulse intact bilaterally. Family Law Attorney strength and hip flexion 5/5 bilaterally. Results & Data Results & Data ([facility]) Vital Signs (Past 12 Hours) Vital Signs Temp Pulse Resp BP Pulse Ox Pulse Ox 01/16/21 06:00 102 H 20 162/93 H 95 01/16/21 05:30 85 22 95 01/16/21 05:00 96 H 25 H 163/103 H 94 01/16/21 04:30 102 H 26 H 95 01/16/21 04:00 37 C 125 H 18 181/106 H 95 01/16/21 03:30 122 H 26 H 95 01/16/21 03:00 126 H 24 164/104 H 95 01/16/21 02:30 120 H 26 H 96 01/16/21 02:00 118 H 28 H 190/123 H 96 01/16/21 01:30 160 H 19 96 01/16/21 01:00 120 H 30 H 167/123 H 96 01/16/21 00:30 111 H 28 H 96 01/16/21 00:00 36.8 C 112 H 27 H 169/110 H 96 01/15/21 23:30 125 H 21 96 01/15/21 23:00 113 H 14 175/111 H 95 01/15/21 22:30 120 H 20 96 01/15/21 22:00 100 H 28 H 184/116 H 95 01/15/21 21:30 119 H 21 01/15/21 21:00 115 H 24 136/100 96 01/15/21 20:30 138 H 27 H 96 01/15/21 20:00 36.8 C 122 H 22 176/114 H 95 96 01/15/21 19:30 113 H 25 H 96 PG Care Time/CCT Total # of Minutes Spent Total Time Spent with Patient: Total time spent is greater than 50% in coordination of care (as documented) at patient's floor/unit and/or counseling patient: Coding Level of Care Code 02683 Subseq Hosp Care Lvl 1 Diagnoses Alcohol withdrawal F10.231 Complication of substance-induced condition: with delirium Alcohol withdrawal seizure F10.239; R56.9 Hypokalemia E87.6 High anion gap metabolic acidosis E87.2 Essential hypertension I10 Alcoholism F10.20 Thrombocytopenia D69.6 Abnormal LFTs R94.5 Hypomagnesemia E83.42 DVT prophylaxis Z29.9 Metabolic encephalopathy G93.41 (1) Alcohol withdrawal Complication of substance-induced condition: with delirium Qualified Code(s): F10.231 - Alcohol dependence with withdrawal delirium
[2021-01-16] MEDS: ICU ELECTROLYTE REPLACEMENT PROTOCOL SCH ×2 (07:41→17:07)
--- NOTE | 2021-01-16 07:55 | Critical Care Progress Note ---
Date of Service January 16, 2021 Assessment & Plan (1) Delirium tremens: Plan: Reason Critically Ill: 45-year-old male here with a PMHx significant for severe alcohol use disorder, possible seizure disorder (vs seizures 2/2 alcohol withdrawal) and HTN who presented to [facility] on 01/13 after a witnessed seizure at home and who was admitted to the ICU on 01/13 for acute encephalopathy due to delirium tremens and hepatic encephalopathy. Neuro - [facility] ICU: POSITIVE Acute encephalopathy, 2/2 delirium tremens and hepatic encephalopathy. Overall condition relatively stable today. - continue Rifaximin 550mg PO BID and Lactulose 30mg PO BID - continue Precedex gtt; will continue to attempt wean today - start Clonidine 0.1mg BID to assist with wean - transition scheduled Ativan PO to Chlordiazepoxide taper: will start with 50mg PO QID today - continue AWSS protocol with PRN Ativan IV for breakthrough symptoms - continue Thiamine 200mg IV BID and folic acid 1mg IV QAM - will discuss inpatient rehab once patient's mental status improves Cardiac - Hypertension, likely acute on chronic in setting of alcohol withdrawal. - continue home Lisinopril 20mg PO QAM - Hydralazine 10mg IV Q6H PRN for SBP >160 Respiratory - No respiratory issues, satting well on room air. GI - 1. Hepatic encephalopathy, improving. - continue Rifaximin/Lactulose as stated above - GI consulted - no indication for steroids, NAC or pentoxifylline 2. Hepatic steatosis (without evidence of overt cirrhosis): per US liver this hospitalization. - recommend hepatology f/u as outpatient, with full abdominal US to assess for splenomegaly and signs of portal HTN 3. Direct Hyperbilirubinemia and transaminitis. Improving overall, except ALP slightly incresaed 209 --> 218. Pattern highly suspicious for alcoholic hepatitis with possible developing cirrhosis as well, although not visualized on US. No signs of bile duct obstruction on US. - no steroids as previously stated - continue to trend RENAL/LYTES - 1. Hypokalemia/Hypomagnesemia/Hypophosphatemia. Likely due to significant alcoh ol use and resultant malnutrition. - continue to replace as needed 2. Elevated AG Metabolic Acidosis, resolving. Likely due to alcohol as well as lactic acidosis s/p seizure. - Strict I/Os. ENDO - No history of diabetes or thyroid disease. HEME - Pancytopenia: Likely due to myelosuppression in setting of severe alcohol abuse but may also be due to ?cirrhosis vs possible infection such as EBV/CMV. - peripheral smear without abnormal cell morphologies - plts improved 43 --> 55 today; will start DVT chemoppx - will hold on EBV/CMV testing for now ID - No concerns for infection at this point. - Monitor fever curve LINES/IV ACCESS - PIVs intact. DVT PROPHYLAXIS - SCDs. Started Lovenox 30mg SQ daily (plts >50) GI PROPHYLAXIS - Protonix 40mg PO daily Thank you for allowing us to be part of this patient's care. Please refer to Dr. Daly's documentation for any further recommendations. (2) Metabolic encephalopathy: (3) Hepatic encephalopathy: (4) Alcoholic liver disease: (5) Abnormal LFTs: (6) Thrombocytopenia: (7) High anion gap metabolic acidosis: (8) Essential hypertension: Admission and Anticipated Discharge Date Admission Date: January 13, 2021 Supervising Physician Co-Signing Physician Notes Patient seen and examined. EMR reviewed. Discussed with off going benefits representative and with family practice resident. Agree with assessment plan as noted. The patient was discussed on multidisciplinary rounds with pharmacy, bedside critical care nurse, and other ancillary specialties. He appears much better today. He is able to carry on a conversation. His tremors are much improved. We will transition from Ativan to Librium with anticipated taper and continue to use Ativan as needed for breakthrough. Attempt to wean off Precedex. Advance diet. He may need PT OT evaluations once he is stable. Keep in the ICU until the patient is able to be weaned off of the Precedex infusion. Subjective Patient received total of Ativan 4mg IV overnight in addition to scheduled Ativan PO as well as Precedex gtt. When wean of Precedex is attempted the patient becomes agitated, hypertensive and tachycardic. This morning patient is somnolent but arousable to voice. Orientation remains impaired, although he can tell me his name and that he is at [facility]. Reports persistent improvement of bilateral hand tremors. Review of Systems Review of Systems: Denies fever/chills, chest pain, palpitations, SOB, N/V, abdominal pain. Physical Exam Physical Exam: General: A&O x2 (self and place). NAD. Somnolent. Cooperative. HEENT: Atraumatic, normocephalic. Pulm: LCTAB. -wheezes, -rales, -rhonchi. Symmetrical chest rise. No increase work of breathing. No respiratory distress. Cardiac: RRR, -mrg. Radial pulses intact and symmetrical. No LE edema. Abdominal: soft, non-tender, non-distended, NA BS x 4 Skin: warm, dry, no rash Neuro: only trace UE bilateral tremors much improved from yesterday, no asterixis Psych: more talkative, better eye contact, denies anxiety, affect is mildly blunted (improved), does not appear to be responding to internal stimuli and denies visual/auditory hallucinations Results & Data Results & Data ([facility]) Vital Signs (Past 12 Hours) Vital Signs Temp Pulse Resp BP Pulse Ox Pulse Ox 01/16/21 06:00 102 H 20 162/93 H 95 01/16/21 05:30 85 22 95 01/16/21 05:00 96 H 25 H 163/103 H 94 01/16/21 04:30 102 H 26 H 95 01/16/21 04:00 37 C 125 H 18 181/106 H 95 01/16/21 03:30 122 H 26 H 95 01/16/21 03:00 126 H 24 164/104 H 95 01/16/21 02:30 120 H 26 H 96 01/16/21 02:00 118 H 28 H 190/123 H 96 01/16/21 01:30 160 H 19 96 01/16/21 01:00 120 H 30 H 167/123 H 96 01/16/21 00:30 111 H 28 H 96 01/16/21 00:00 36.8 C 112 H 27 H 169/110 H 96 01/15/21 23:30 125 H 21 96 01/15/21 23:00 113 H 14 175/111 H 95 01/15/21 22:30 120 H 20 96 01/15/21 22:00 100 H 28 H 184/116 H 95 01/15/21 21:30 119 H 21 01/15/21 21:00 115 H 24 136/100 96 01/15/21 20:30 138 H 27 H 96 01/15/21 20:00 36.8 C 122 H 22 176/114 H 95 96 Resident Activity Tracking Resident Involvement: Resident Care Provided Care Provided: Adult Hospital Medicine
[2021-01-16] MEDS: MAGNESIUM SULFATE / D5W 1 GM/100 ML BAG IV SCH ×2 (08:36→11:11)
[2021-01-16] MEDS: THIAMINE HCL 200 MG in SODIUM CHLORIDE 0.9% 50 ML IV SCH ×2 (08:37→20:53)
[2021-01-16] MEDS: FOLIC ACID 1 MG in SYRINGE 9.8 ML IV SCH (08:37)
[2021-01-16] MEDS: CEROVITE ADV FORMULA TAB PO SCH (08:38)
[2021-01-16] MEDS: rifAXIMin 550 MG TABLET PO SCH ×2 (08:38→20:56)
[2021-01-16] MEDS: PANTOprazole 40 MG TAB PO SCH (08:38)
[2021-01-16] MEDS: lisinopril 20 MG TAB PO SCH (08:38)
[2021-01-16] MEDS: lamoTRIgine 100 MG TAB PO SCH ×2 (08:38→20:56)
[2021-01-16] MEDS ORDERED: chlordiazePOXIDE ALCOHOL WITHDRAWL 50MG PO STA (10:02)
--- NOTE | 2021-01-16 10:35 | Billing Data ---
Date of Service January 16, 2021 Coding Level of Care Code 21790 Subseq Hosp Care Lvl 2
[2021-01-16] MEDS: chlordiazePOXIDE HCl 25 MG CAP PO SCH ×3 (11:11→23:50)
[2021-01-16] MEDS: cloNIDine HCL 0.1 MG TAB PO SCH ×2 (11:11→20:55)
[2021-01-16] MEDS: LACTULOSE SYRUP 30 GM/45 ML UDP PO SCH ×2 (11:11→20:56)
[2021-01-16] MEDS: ENOXAPARIN INJ 30 MG/0.3 ML SYR SQ SCH (11:12)
[2021-01-17 05:05] LABS: Hematocrit (blood only) 30.1 % (42-52); Hemoglobin 10.5 g/dL (14.0-18.0); Mean Corpuscular Hemoglobin 39.5 pg (25-34); Mean Corpuscular Hgb Conc 34.9 g/dL (32-36); Mean Corpuscular Volume 113.2 fL (80-100); Mean Platelet Volume 10.5 fL (7.4-10.4); Platelet Count 63 K/uL (130-400); RDW Coefficient of Variation 14.2 % (11.5-14.5); Red Blood Count 2.66 M/uL (4.7-6.1); White Blood Count 4.09 K/uL (4.8-10.8)
[2021-01-17 05:26] LABS: BUN Creatinine Ratio 14.7 (10-20); Calcium 8.3 mg/dl (8.5-10.1); Creatinine Clr Calc Pharmacy 168.6 ml/min; Est GFR (African American) 140.8 ml/min; Est GFR (Non-African American) 121.5 ml/min; Magnesium 1.9 mg/dl (1.8-2.4); Potassium 2.9 mmol/L (3.5-5.1)
[2021-01-17 05:37] LABS: Phosphorus 3.1 mg/dl (2.5-4.9)
[2021-01-17] MEDS: ICU ELECTROLYTE REPLACEMENT PROTOCOL SCH (05:47)
[2021-01-17] MEDS: MAGNESIUM SULFATE / D5W 1 GM/100 ML BAG IV SCH ×2 (06:14→08:36)
[2021-01-17] MEDS: POTASSIUM CHLORIDE / WTR 10 MEQ/100 ML PLCT IV SCH ×7 (06:14→19:39)
[2021-01-17] MEDS: chlordiazePOXIDE HCl 25 MG CAP PO SCH ×3 (06:16→20:44)
[2021-01-17 06:24] LABS: Basophils # (auto) 0.01 K/uL (0-0.2); Basophils % (auto) 0.2 %; Eosinophils # (auto) 0.09 K/uL (0-0.5); Eosinophils % (auto) 2.2 %; Immature Granulocytes # (auto) 0.01 K/uL (0.00-0.02); Immature Granulocytes % (auto) 0.2 %; Lymphocytes # (auto) 1.18 K/uL (1.2-3.4); Lymphocytes % (auto) 28.9 %; Monocytes # (auto) 0.69 K/uL (0.11-0.59); Monocytes % (auto) 16.9 %; Neutrophils # (auto) 2.11 K/uL (1.4-6.5); Neutrophils % (auto) 51.6 %; Polychromasia 1+
[2021-01-17] MEDS: DEXMEDETOMIDINE HCL 200 MCG in SODIUM CHLORIDE 0.9% 48 ML IV SCH (07:27)
--- NOTE | 2021-01-17 07:30 | Critical Care Progress Note ---
Date of Service January 17, 2021 Assessment & Plan (1) Delirium tremens: Plan: Reason Critically Ill: 45-year-old male here with a PMHx significant for severe alcohol use disorder, possible seizure disorder (vs seizures 2/2 alcohol withdrawal) and HTN who presented to [facility] on 01/13 after a witnessed seizure at home and who was admitted to the ICU on 01/13 for acute encephalopathy due to delirium tremens and hepatic encephalopathy. Neuro - [facility] ICU: POSITIVE Acute encephalopathy, 2/2 delirium tremens and hepatic encephalopathy. Significantly improved today; Precedex gtt weaned overnight. - continue Rifaximin 550mg PO BID and Lactulose 30mg PO BID - increase Clonidine to 0.2mg BID - continue Librium taper - continue Lamictal for now - recommend discussion with PCP regarding wean, given that previous "seizure disorder" is most likely recurrent DTs - continue AWSS protocol with PRN Ativan IV for breakthrough symptoms - continue Thiamine 200mg PO BID and folic acid 1mg PO QAM - will defer discussion about rehab options to hospitalist Cardiac - Hypertension, likely acute on chronic in setting of alcohol withdrawal. - continue home Lisinopril 20mg PO QAM - increased Clonidine as stated above - Hydralazine 10mg IV Q6H PRN for SBP >160 Respiratory - No respiratory issues, satting well on room air. GI - 1. Hepatic encephalopathy, improving. - continue Rifaximin/Lactulose as stated above - GI consulted - no indication for steroids, NAC or pentoxifylline 2. Hepatic steatosis (without evidence of overt cirrhosis): per US liver this hospitalization. - recommend hepatology f/u as outpatient, with full abdominal US to assess for splenomegaly and signs of portal HTN 3. Direct Hyperbilirubinemia and transaminitis. Improving overall. Pattern suspicious for alcoholic hepatitis with possible developing cirrhosis as well, although not visualized on US. No signs of bile duct obstruction on US. - no steroids as previously stated RENAL/LYTES - 1. Hypokalemia/Hypomagnesemia/Hypophosphatemia. Likely due to significant alcohol use and resultant malnutrition. - continue to replace as needed 2. Elevated AG Metabolic Acidosis, resolved. Likely due to alcohol as well as lactic acidosis s/p seizure. - Strict I/Os. ENDO - No history of diabetes or thyroid disease. HEME - Pancytopenia: Likely due to myelosuppression in setting of severe alcohol abuse but may also be due to ?cirrhosis vs possible infection such as EBV/CMV. - peripheral smear without abnormal cell morphologies - plts improved 55 --> 63 today - will hold on EBV/CMV testing for now ID - No concerns for infection at this point. - Monitor fever curve LINES/IV ACCESS - PIVs intact. DVT PROPHYLAXIS - SCDs. Lovenox 30mg SQ daily. GI PROPHYLAXIS - Protonix 40mg PO daily Dispo: PT/OT ordered. Patient stable for downgrade to floor today Thank you for allowing us to be part of this patient's care. Please refer to Dr. Daly's documentation for any further recommendations. (2) Metabolic encephalopathy: (3) Hepatic encephalopathy: (4) Alcoholic liver disease: (5) Abnormal LFTs: (6) Thrombocytopenia: (7) High anion gap metabolic acidosis: (8) Essential hypertension: Admission and Anticipated Discharge Date Admission Date: January 13, 2021 Supervising Physician Co-Signing Physician Notes Patient seen and examined. EMR reviewed. Discussed with family practice resident and agree with assessment plan as noted. Discussed with bedside critical care nurse and on multidisciplinary rounds. Patient is markedly improved this morning. Has been weaned off Precedex. His tremors and hallucinations resolved. He is on a Librium taper. He is tolerating a diet. He remains intermittently hypertensive and tachycardic. We will increase his clonidine to 0.2 twice daily. Continue Librium taper with as needed Ativan. PT OT and out of bed to chair as tolerated. Okay to transfer out of the intensive care unit. We will sign off from a critical care standpoint. Please contact us if we can be of additional assistance. Subjective Patient was successfully weaned off of Precedex gtt overnight. Did not require PRN Ativan on top of scheduled Librium. This morning the patient is awake/alert, in NAD, sitting up eating breakfast with minimal UE tremors. Able to tell me who he is, where he is, the month/year, and that he is here for "seizures". We spoke about alcohol abuse/DTs and rehab options. Patient was initially precontemp lative regarding his alcohol abuse, and then quickly said he would be able to stay away from alcohol when he goes home, when I informed him about the nature of this hospitalization. He says he will consider inpatient rehab but for now wants to go home with AA. Review of Systems Review of Systems: Denies fever/chills, chest pain, palpitations, SOB, N/V, abdominal pain. Physical Exam Physical Exam: General: A&O x2 (self and place). NAD. Somnolent. Cooperative. HEENT: Atraumatic, normocephalic. Pulm: LCTAB. -wheezes, -rales, -rhonchi. Symmetrical chest rise. No increase work of breathing. No respiratory distress. Cardiac: RRR, -mrg. Radial pulses intact and symmetrical. No LE edema. Abdominal: soft, non-tender, non-distended, NA BS x 4 Skin: warm, dry, no rash Neuro: only trace UE bilateral tremors much improved from yesterday, no asterixis Psych: more talkative, better eye contact, denies anxiety, affect is mildly blunted (improved), does not appear to be responding to internal stimuli and denies visual/auditory hallucinations Results & Data Results & Data ([facility]) Vital Signs (Past 12 Hours) Vital Signs Temp Pulse Resp BP Pulse Ox Pulse Ox 01/17/21 06:30 72 22 97 01/17/21 06:00 68 23 164/109 H 97 01/17/21 05:30 66 19 96 01/17/21 05:00 71 24 151/102 H 96 01/17/21 04:30 69 21 96 01/17/21 04:00 36.8 C 67 20 136/89 96 01/17/21 03:30 66 24 96 01/17/21 03:00 62 22 141/91 H 98 01/17/21 02:30 71 20 96 01/17/21 02:00 69 23 125/89 96 01/17/21 01:30 75 21 98 01/17/21 01:00 78 22 144/97 H 97 01/17/21 00:30 63 21 97 01/17/21 00:00 36.7 C 66 24 153/98 H 97 01/16/21 23:30 63 24 01/16/21 23:00 61 22 133/92 01/16/21 22:30 67 21 01/16/21 22:00 63 21 141/92 H 01/16/21 21:30 70 22 01/16/21 21:00 80 20 149/110 H 01/16/21 20:30 73 22 01/16/21 20:00 36.7 C 88 23 161/102 H 95 95 Resident Activity Tracking Resident Involvement: Resident Care Provided Care Provided: Adult Hospital Medicine
--- NOTE | 2021-01-17 07:33 | Hospitalist Progress Note ---
Date of Service January 17, 2021 Assessment & Plan (1) Alcohol withdrawal: Plan: Freddie is a 45-year-old male with a history of alcohol withdrawal and seizure in the ER who is admitted for severe alcohol withdrawal and currently under care in the intensive care unit Severe alcohol withdrawal with DTs/seizure Observed seizure while in ER 01/15: On Ativan drip, AWSS Ativan, and Precedex drip this morning. Ativan GTT discontinued, patient remains on AWSS Ativan and Precedex - 01/16: On Precedex 0.4mcg/kg/hr, Ativan AWSS. Continues to score and tremulous on exam - 01/17: Precedex discontinued, patient stable for downgrade per ICU. Pending transfer. Last reported alcohol 3-4 days prior to admission but with measurable alcohol in ER Continue high-dose thiamine 200 mg IV twice daily Continue folic acid 1 mg IV daily MVI Discussed thoughts on post-hopsital plan with the patient. He reports he intends to return home after discharge, but is interested in alcohol cessation services. Reports he would be interested in outpatient counseling, and does not keep any alcohol in the home. He reports that he drinks alcohol to 'take the edge off and enjoy a days labor.' Endorses a little anxiety but does not feel this is the reason that he drinks. He reports he is 3/10 confident he will remain sober) at home, feels the difficulty is enjoying alcohol to enjoy the ends of this day. He expresses an interest in remaining sober, but is concerned he will have difficulty doing so. -Continue Librium taper AWSS Ativan as needed (2) Alcohol withdrawal seizure: Plan: - s/p ativan in the ER. - hx seizure disorder - Continue Lamictal 100mg PO BID - BMP daily (3) Hypokalemia: Plan: KCl riders ordered Add KCl p.o. 20 M EQ 3 times daily Magnesium repletion ordered in ICU Continue Mag-Ox daily BMP/magnesium daily Goal potassium 4, magnesium 2.0 (4) High anion gap metabolic acidosis: Plan: now resolved Cont IV fluids, lactate from seizure possible also (5) Essential hypertension: Plan: Continue A. fib Likely increased blood pressure due to withdrawal process as well Patient started on clonidine in ER Continue clonidine 0.2 mg twice daily (6) Alcoholism: Plan: Case management consulted See patient Goals discussion above (7) Thrombocytopenia: Plan: suspect 2/2 direct toxic effects of alcohol. (8) Abnormal LFTs: Plan: Hepatic US: Increased hepatic echogenicity. This favors hepatic steatosis. Liver not overtly cirrhotic however superimposed hepatocellular disease cannot be excluded. No gallstones or biliary duct dilatation. Likely alcoholic hepatitis. Ammonia downtrending 11/8 AST/Bili downtrending 11/9 (9) Hypomagnesemia: Plan: Pleat per ICU repletion protocol (10) DVT prophylaxis: Plan: SCDs defer on chemical means due to low platelets (11) Metabolic encephalopathy: Plan: -2nd to etoh withdrawal. - CT-H: Naf -elevated ammonia, downtrending -continue lactulose -Rifaximin twice daily -supportive care, treat the withdrawal, etc. Admission and Anticipated Discharge Date Admission Date: January 13, 2021 Subjective Patient seen at the bedside this morning. He is no longer requiring Precedex drip, Ativan drip since this morning. He reports he feels a little better and well but still feels shaky, tremulous, notes that these are almost gone and his hands and legs feel much more steady. He denies chest pressure, chest pain, shortness of breath, difficulty breathing, headache bedside. Discussed plan with the patient. He reports he intends to return home after discharge, but is interested in alcohol cessation services. Reports he would be interested in outpatient counseling, and does not keep any alcohol in the home. He reports that he drinks alcohol to 'take the edge off and enjoy a days labor.' Endorses a little anxiety but does not feel this is the reason that he drinks. He reports he is 3/10 confident he will remain sober) at home, feels the difficulty is enjoying alcohol to enjoy the ends of this day. He expresses an interest in remaining sober, but is concerned he will have difficulty doing so. Review of Systems Review of Systems: All systems reviewed & are unremarkable except as noted in Subjective Physical Exam Physical Exam: General: Somnolent, greatly improved mentation from prior. Oriented x3. HEENT: Atraumatic, normocephalic. Visual acuity and hearing grossly intact. Pupils equal and reactive to light. Extraocular movements intact without nystagmus. Pulm: CTAB A&P. -wheezes, -rales, -rhonchi. Symmetrical chest rise. No increase work of breathing. No respiratory distress. Cardiac: RRR, -mrg. Radial pulses intact and symmetrical. Abdominal: Nontender, nondistended, soft. BS present. Extremities: Slightly tremulous in hands and legs at rest, greatly improved from prior. Radial pulse intact bilaterally. [employer]oc Plans Intelligence Officer Chief strength and hip flexion 5/5 bilaterally. Results & Data Results & Data ([facility]) Vital Signs (Past 12 Hours) Vital Signs Temp Pulse Resp BP Pulse Ox Pulse Ox 01/17/21 06:30 72 22 97 01/17/21 06:00 68 23 164/109 H 97 01/17/21 05:30 66 19 96 01/17/21 05:00 71 24 151/102 H 96 01/17/21 04:30 69 21 96 01/17/21 04:00 36.8 C 67 20 136/89 96 01/17/21 03:30 66 24 96 01/17/21 03:00 62 22 141/91 H 98 01/17/21 02:30 71 20 96 01/17/21 02:00 69 23 125/89 96 01/17/21 01:30 75 21 98 01/17/21 01:00 78 22 144/97 H 97 01/17/21 00:30 63 21 97 01/17/21 00:00 36.7 C 66 24 153/98 H 97 01/16/21 23:30 63 24 01/16/21 23:00 61 22 133/92 01/16/21 22:30 67 21 01/16/21 22:00 63 21 141/92 H 01/16/21 21:30 70 22 01/16/21 21:00 80 20 149/110 H 01/16/21 20:30 73 22 01/16/21 20:00 36.7 C 88 23 161/102 H 95 95 PG Care Time/CCT Total # of Minutes Spent Total Time Spent with Patient: Total time spent is greater than 50% in coordination of care (as documented) at patient's floor/unit and/or counseling patient: Coding Level of Care Code 55167 Subseq Hosp Care Lvl 3 Diagnoses Alcohol withdrawal F10.231 Complication of substance-induced condition: with delirium Alcohol withdrawal seizure F10.239; R56.9 Hypokalemia E87.6 High anion gap metabolic acidosis E87.2 Essential hypertension I10 Alcoholism F10.20 Thrombocytopenia D69.6 Abnormal LFTs R94.5 Hypomagnesemia E83.42 DVT prophylaxis Z29.9 Metabolic encephalopathy G93.41 (1) Alcohol withdrawal Complication of substance-induced condition: with delirium Qualified Code(s): F10.231 - Alcohol dependence with withdrawal delirium
[2021-01-17] MEDS: LACTULOSE SYRUP 30 GM/45 ML UDP PO SCH (08:37)
[2021-01-17] MEDS: lamoTRIgine 100 MG TAB PO SCH ×2 (08:38→22:46)
[2021-01-17] MEDS: CEROVITE ADV FORMULA TAB PO SCH (08:38)
[2021-01-17] MEDS: rifAXIMin 550 MG TABLET PO SCH (08:38)
[2021-01-17] MEDS: lisinopril 20 MG TAB PO SCH (08:39)
[2021-01-17] MEDS: PANTOprazole 40 MG TAB PO SCH (08:41)
[2021-01-17] MEDS: ENOXAPARIN INJ 30 MG/0.3 ML SYR SQ SCH (08:41)
[2021-01-17] MEDS: cloNIDine HCL 0.1 MG TAB PO SCH ×2 (08:47→18:42)
--- NOTE | 2021-01-17 09:00 | Billing Data ---
Date of Service January 17, 2021 Coding Level of Care Code 42458 Subseq Hosp Care Lvl 2
[2021-01-17] MEDS: FOLIC ACID 1 MG TAB PO SCH (10:06)
[2021-01-17] MEDS: THIAMINE HCL 100 MG TAB PO SCH ×2 (10:06→22:46)
[2021-01-17] MEDS ORDERED: POTASSIUM CHLORIDE 20 MEQ/15 ML UDC PO STA (13:19)
[2021-01-17] MEDS: hydrALAZINE HCL 20 MG/ML VIAL IV PRN ×2 (16:55→23:22)
[2021-01-18] MEDS: chlordiazePOXIDE HCl 25 MG CAP PO SCH ×3 (05:03→20:52)
[2021-01-18 07:07] LABS: Hematocrit (blood only) 31.6 % (42-52); Hemoglobin 10.9 g/dL (14.0-18.0); Mean Corpuscular Hemoglobin 39.6 pg (25-34); Mean Corpuscular Hgb Conc 34.5 g/dL (32-36); Mean Corpuscular Volume 114.9 fL (80-100); RDW Coefficient of Variation 14.2 % (11.5-14.5); RDW Standard Deviation 59.2 fL (36.4-46.3); Red Blood Count 2.75 M/uL (4.7-6.1); White Blood Count 4.61 K/uL (4.8-10.8)
[2021-01-18 07:14] LABS: Mean Platelet Volume 11.4 fL (7.4-10.4); Platelet Count 85 K/uL (130-400)
[2021-01-18 07:54] LABS: Basophils # (auto) 0.02 K/uL (0-0.2); Basophils % (auto) 0.4 %; Eosinophils # (auto) 0.06 K/uL (0-0.5); Eosinophils % (auto) 1.3 %; Immature Granulocytes # (auto) 0.01 K/uL (0.00-0.02); Immature Granulocytes % (auto) 0.2 %; Lymphocytes # (auto) 1.02 K/uL (1.2-3.4); Lymphocytes % (auto) 22.1 %; Macrocytosis Present; Monocytes # (auto) 0.95 K/uL (0.11-0.59); Monocytes % (auto) 20.6 %; Neutrophils # (auto) 2.55 K/uL (1.4-6.5); Neutrophils % (auto) 55.4 %
[2021-01-18 08:25] LABS: BUN Creatinine Ratio 9.5 (10-20); Calcium 8.9 mg/dl (8.5-10.1); Creatinine Clr Calc Pharmacy 180.2 ml/min; Est GFR (African American) 144.7 ml/min; Est GFR (Non-African American) 124.9 ml/min; Magnesium 1.9 mg/dl (1.8-2.4); Phosphorus 2.6 mg/dl (2.5-4.9); Potassium 3.1 mmol/L (3.5-5.1)
[2021-01-18] MEDS: LACTULOSE SYRUP 30 GM/45 ML UDP PO SCH (08:48)
[2021-01-18] MEDS: THIAMINE HCL 100 MG TAB PO SCH ×2 (08:48→20:51)
[2021-01-18] MEDS: CEROVITE ADV FORMULA TAB PO SCH (09:11)
[2021-01-18] MEDS: lamoTRIgine 100 MG TAB PO SCH ×2 (09:11→20:52)
[2021-01-18] MEDS: PANTOprazole 40 MG TAB PO SCH (09:11)
[2021-01-18] MEDS: ENOXAPARIN INJ 30 MG/0.3 ML SYR SQ SCH (09:11)
[2021-01-18] MEDS: cloNIDine HCL 0.1 MG TAB PO SCH ×2 (09:11→20:51)
[2021-01-18] MEDS: FOLIC ACID 1 MG TAB PO SCH (09:11)
[2021-01-18] MEDS: lisinopril 20 MG TAB PO SCH (09:12)
--- NOTE | 2021-01-18 14:08 | Hospitalist Progress Note ---
Date of Service January 18, 2021 Assessment & Plan (1) Alcohol withdrawal: Plan: Freddie is a 45-year-old male with a history of alcohol withdrawal and seizure in the ER who is admitted for severe alcohol withdrawal and currently under care in the intensive care unit Severe alcohol withdrawal with DTs/seizure Observed seizure while in ER 01/15: On Ativan drip, AWSS Ativan, and Precedex drip this morning. Ativan GTT discontinued, patient remains on AWSS Ativan and Precedex - 01/16: On Precedex 0.4mcg/kg/hr, Ativan AWSS. Continues to score and tremulous on exam - 01/17: Precedex discontinued, patient stable for downgrade per ICU. Pending transfer. - 01/18: Improved and clinically progression, remains with some BP instability/HTN improving overall. Tremulous, but improving. Last reported alcohol 3-4 days prior to admission but with measurable alcohol in ER Continue high-dose thiamine 200 mg IV twice daily Continue folic acid 1 mg IV daily MVI Discussed thoughts on post-hopsital plan with the patient. He reports he intends to return home after discharge, but is interested in alcohol cessation services. Reports he would be interested in outpatient counseling, and does not keep any alcohol in the home. He reports that he drinks alcohol to 'take the edge off and enjoy a days labor.' Endorses a little anxiety but does not feel this is the reason that he drinks. He reports he is 3/10 confident he will remain sober) at home, feels the difficulty is enjoying alcohol to enjoy the ends of this day. He expresses an interest in remaining sober, but is concerned he will have difficulty doing so. - Disc. resources with CM. Pt insurance is limited, applying for medical assistance. CM working on f/u PCP/appointment options at this time. Pt reaching out to sobreity services/supports including [facility]. -Continue Librium taper AWSS Ativan as needed (2) Alcohol withdrawal seizure: Plan: - s/p ativan in the ER. - hx seizure disorder - Continue Lamictal 100mg PO BID - BMP daily (3) Hypokalemia: Plan: KCl riders ordered Add KCl p.o. 20 M EQ 3 times daily Magnesium repletion ordered in ICU Continue Mag-Ox daily BMP/magnesium daily Goal potassium 4, magnesium 2.0 (4) High anion gap metabolic acidosis: Plan: now resolved Cont IV fluids, lactate from seizure possible also (5) Essential hypertension: Plan: Continue A. fib Likely increased blood pressure due to withdrawal process as well Patient started on clonidine in ER Continue clonidine 0.2 mg twice daily (6) Alcoholism: Plan: Case management consulted See patient Goals discussion above (7) Thrombocytopenia: Plan: suspect 2/2 direct toxic effects of alcohol. (8) Abnormal LFTs: Plan: Hepatic US: Increased hepatic echogenicity. This favors hepatic steatosis. Liver not overtly cirrhotic however superimposed hepatocellular disease cannot be excluded. No gallstones or biliary duct dilatation. Likely alcoholic hepatitis. Ammonia downtrending 8 AST/Bili downtrending 01/16 (9) Hypomagnesemia: Plan: Normalized (10) DVT prophylaxis: Plan: SCDs defer on chemical means due to low platelets (11) Metabolic encephalopathy: Plan: -2nd to etoh withdrawal. - CT-H: Naf -elevated ammonia, downtrended - continue lactulose Admission and Anticipated Discharge Date Admission Date: January 13, 2021 Subjective Improved mentation and alertness today. Tremulous at rest, improved from prior. No hallulincations/confusion/seizures. Pt declines Psych consultation at this time. BP elevated overnight, improving today. Discussed plan w/ CM and outpt resources. Pt reaching out to [facility] and [facility]. Progressing towards discharge, no additional ? or concerns at time of evaluation. No CP/CPressure/SoB/Difficulty breathing/Ab Pain/N/V Review of Systems Review of Systems: All systems reviewed & are unremarkable except as noted in Subjective Physical Exam Physical Exam: General: A&Ox3. Tremulous. Follows 1 and 2 step commands. HEENT: Atraumatic, normocephalic. Visual acuity and hearing grossly intact. Pupils equal and reactive to light. Extraocular movements intact without nystagmus. Pulm: CTAB A&P. -wheezes, -rales, -rhonchi. Symmetrical chest rise. No increase work of breathing. No respiratory distress. Cardiac: RRR, -mrg. Radial pulses intact and symmetrical. Abdominal: Nontender, nondistended, soft. BS present. Extremities: Slightly tremulous in hands and legs at rest, improved from prior. Radial pulse intact bilaterally. Environmental Systems Coordinator strength and hip flexion 5/5 bilaterally. Results & Data Results & Data ([facility]) Vital Signs (Past 12 Hours) Vital Signs Temp Pulse Resp BP Pulse Ox 01/18/21 07:28 37.3 C 79 16 164/94 H 94 01/18/21 05:57 88 152/94 H PG Care Time/CCT Total # of Minutes Spent Total Time Spent with Patient: Total time spent is greater than 50% in coordination of care (as documented) at patient's floor/unit and/or counseling patient: Coding Level of Care Code 10604 Subseq Hosp Care Lvl 2 Diagnoses Alcohol withdrawal F10.231 Complication of substance-induced condition: with delirium Alcohol withdrawal seizure F10.239; R56.9 Hypokalemia E87.6 High anion gap metabolic acidosis E87.2 Essential hypertension I10 Alcoholism F10.20 Thrombocytopenia D69.6 Abnormal LFTs R94.5 Hypomagnesemia E83.42 DVT prophylaxis Z29.9 Metabolic encephalopathy G93.41 (1) Alcohol withdrawal Complication of substance-induced condition: with delirium Qualified Code(s): F10.231 - Alcohol dependence with withdrawal delirium
[2021-01-18] MEDS: VITAMIN B COMPLEX TAB PO SCH (15:05)
[2021-01-19] MEDS: chlordiazePOXIDE HCl 25 MG CAP PO SCH (05:00)
[2021-01-19 06:18] LABS: Basophils # (auto) 0.02 K/uL (0-0.2); Basophils % (auto) 0.4 %; Eosinophils # (auto) 0.05 K/uL (0-0.5); Hematocrit (blood only) 29.9 % (42-52); Hemoglobin 10.2 g/dL (14.0-18.0); Immature Granulocytes # (auto) 0.01 K/uL (0.00-0.02); Immature Granulocytes % (auto) 0.2 %; Lymphocytes # (auto) 1.19 K/uL (1.2-3.4); Lymphocytes % (auto) 23.8 %; Mean Corpuscular Hemoglobin 39.2 pg (25-34); Mean Corpuscular Hgb Conc 34.1 g/dL (32-36); Mean Platelet Volume 10.7 fL (7.4-10.4); Monocytes # (auto) 0.98 K/uL (0.11-0.59); Monocytes % (auto) 19.6 %; Neutrophils # (auto) 2.75 K/uL (1.4-6.5); Platelet Count 103 K/uL (130-400); RDW Coefficient of Variation 14.1 % (11.5-14.5); RDW Standard Deviation 59.3 fL (36.4-46.3)
[2021-01-19 06:50] LABS: Macrocytosis Present
[2021-01-19 07:04] LABS: BUN Creatinine Ratio 11.7 (10-20); Calcium 9.3 mg/dl (8.5-10.1); Creatinine Clr Calc Pharmacy 141.3 ml/min; Est GFR (African American) 130.9 ml/min; Magnesium 1.8 mg/dl (1.8-2.4); Potassium 3.2 mmol/L (3.5-5.1)
[2021-01-19 07:06] LABS: Phosphorus 3.6 mg/dl (2.5-4.9)
[2021-01-19] MEDS: cloNIDine HCL 0.1 MG TAB PO SCH (09:20)
[2021-01-19] MEDS: FOLIC ACID 1 MG TAB PO SCH (09:20)
[2021-01-19] MEDS: lisinopril 20 MG TAB PO SCH (09:21)
[2021-01-19] MEDS: CEROVITE ADV FORMULA TAB PO SCH (09:21)
[2021-01-19] MEDS: lamoTRIgine 100 MG TAB PO SCH (09:21)
[2021-01-19] MEDS: THIAMINE HCL 100 MG TAB PO SCH (09:22)
[2021-01-19] MEDS: PANTOprazole 40 MG TAB PO SCH (09:22)
[2021-01-19] MEDS: VITAMIN B COMPLEX TAB PO SCH (09:23)
[2021-01-19] MEDS: LACTULOSE SYRUP 30 GM/45 ML UDP PO SCH (09:26)
[2021-01-19] MEDS: ENOXAPARIN INJ 30 MG/0.3 ML SYR SQ SCH (10:01)
--- NOTE | 2021-01-19 13:47 | Discharge Summary ---
Date of Service January 19, 2021 Admission HPI Per Admitting Provider 45yo male with history of alcoholism, prior alcohol withdrawal, seizure disorder (vs etoh-withdrawal seizures), and HTN presents with his father from home due to "shakes." Most of the history was obtained from the patient's father as the patient was mildly confused and offered little information on his own accord. Pt's father states that last night his son began to show severe "shakes" (tremors) of his arms, hands, head, etc. He was having hot/cold sweats and felt poorly. This am the tremors were much more severe and thus his father brought him to the ER. Patient admits to daily, heavy etoh consumption. He states his last etoh beverage was 3-4 days ago but couldn't give me a firm date. He states he can drink up to a bottle of wine each day, also drink beer and liquor. He can drink an entire bottle of [place]a in 1-2 days. He wouldn't quantify how much beer he drinks. He admits to having had DWIs in the past. Has never been to alcohol/drug rehab. Denies any tobacco. While waiting in a wheelchair in the [facility] he had a witnessed generalized seizure. His father reports he may have had a smaller seizure at home as well. He has been diagnosed as having "seizure disorder" in the past - perhaps in his 20s - and takes lamictal for such. He has not had any seizure since moving back to [facility] 3 years ago (by way of [facility]). He does not follow with neurology locally. Prior to my arrival he had received 4mg of IV ativan. Despite such he had severe tremors and was unable to tell me correctly the day of the week (thought it was Friday) but did know the month and year. Denied any visual/auditory hallucinations. I gave an additional 2mg of IV ativan for seizure tremors, tachycardia, and sweats. Admission Exam Per Admitting Provider gen - looks unwell, confused, difficult to understand his speech but does know he is in the hospital, that it is 2020, and it is January eyes - PERRL; severe horizontal nystagmus HENT - no signs of trauma; nose clear; right TM clear with old scarring; left TM not seen due to cerumen; mouth - MM pasty, no tongue bite pastor Neck - no JVD, lymphadenopathy or goiter Heart - tachy, s1 s2, no murmur lungs - CTA b/l abd - liver enlarged but NT; spleen palpable; ND; BS+ Ext - no edema, pulses 2+ b/l skin - tattoos; no rash; sweaty neuro - SEVERE tremors of head, b/l arms; strength upper/lower extremities 5/5 psych - a/o x 2 lymph - no cervical lymphadenopathy Principal Diagnosis Severe acute alcohol withdrawal with seizure Delirium tremens Discharge Exam General: A&Ox3. Tremulous. Follows 1 and 2 step commands. HEENT: Atraumatic, normocephalic. Visual acuity and hearing grossly intact. Pupils equal and reactive to light. Extraocular movements intact without nystagmus. Pulm: CTAB A&P. -wheezes, -rales, -rhonchi. Symmetrical chest rise. No increase work of breathing. No respiratory distress. Cardiac: RRR, -mrg. Radial pulses intact and symmetrical. Abdominal: Nontender, nondistended, soft. BS present. Extremities: Minimally. Skin warm and dry, no diaphoresis. Tremulous in hands and legs at rest, improved from prior. Radial pulse intact bilaterally. Desilverizer strength and hip flexion 5/5 bilaterally Discharge Data Allergies Allergy/AdvReac Type Severity Reaction Status Date / Time No Known Allergies Allergy Mild Verified 01/13/21 14:44 Consultations 01/13/21 14:25 ED Decision to Admit Stat 01/13/21 18:53 Consult Facilities Administrator Routine 01/14/21 08:14 Consult Gastroenterology Routine Ordered Studies 01/13/21 12:57 CT head/brain wo con Stat 01/14/21 US liver Routine Hospital Course (1) Alcohol withdrawal: Freddie is a 45-year-old male with a history of alcohol withdrawal and seizure in the ER who is admitted for severe alcohol withdrawal and he required intensive care unit admission, following which was able to be downgraded and clinically progressed well until discharge. To do as outpatient: 1. Complete Librium taper 2. Follow-up with outpatient sobriety resources 3. Establish with PCP and have routine follow-up 4. Follow-up CMP/ammonia within 1 week 5. Follow-up potassium levels on blood work above, discontinue potassium chloride if potassium returns and remains within normal levels or increase if indicated Severe alcohol withdrawal with DTs/seizure Observed seizure while in ER. Last reported alcohol 3 to 4 days prior to admission, but with measurable alcohol level in ER. Patient experienced severe tremulousness, and was admitted to ICU on Ativan drip, KELL S Ativan, and Precede x drip. Progression as noted below. 01/15: On Ativan drip, AWSS Ativan, and Precedex drip this morning. Ativan GTT discontinued, patient remains on AWSS Ativan and Precedex - 01/16: On Precedex 0.4mcg/kg/hr, Ativan AWSS. Continues to score and tremulous on exam - 01/17: Precedex discontinued, patient stable for downgrade per ICU. Pending transfer. - 01/18: Improved and clinically progressed, remains with some BP instability/HTN improving overall. Tremulous, but improv Day of discharge: Patient minimally tremulous, felt well, and felt safe for discharge. Revisited thoughts on post hospital plan and support services with patient. He is interested in alcohol cessation services. Reports he would be interested in outpatient counseling, and does not keep any alcohol in the home. He reports that he drinks alcohol to 'take the edge off and enjoy a days labor.' Endorses a little anxiety but does not feel this is the reason that he drinks. Resources were provided to patient by case management including [facility] and other alcohol cessation services such as AA. PCP appointment facilitation offered to patient time of discharge, he declines this as he wants to look at PCPs on his own. Did discuss medical assistance program to which patient was agreeable and appreciated of. Discussed follow-up with shoe parts caser Guadalupe, to ensure PCP assessment does not follow through, patient was agreeable to this at time of discharge. Discussed that he should have a repeat ammonia/CMP as outpatient within 1 week and that this should be done by PCP, but in case he is not able to establish/get into an office he was provided with a manual prescription with follow-up back to me on any provider. Continue thiamine, folic acid repletion as outpatient Patient completed a Librium taper during admission with the exception of 1 dose, he was given a prescription to complete Librium taper with 10 mg p.o. chlordiazepoxide to be taken evening of discharge. He did not require KELL scoring Ativan within 24 hours of discharge. (2) Alcohol withdrawal seizure: - s/p ativan in the ER. - hx seizure disorder - Continue Lamictal 100mg PO BID - BMP daily Patient instructed not to drive, expressed agreement to this (3) Hypokalemia: Patient hypokalemic during admission, this was repleted during admission Magnesium was normal at discharge Potassium was slightly low at discharge, patient was continued on daily repletion with an instruction to follow-up on additional levels as outpatient Patient deferred staying in hospital to have additional potassium repletion/check. Oral repletion given day of discharge (4) High anion gap metabolic acidosis: now resolved Cont IV fluids, lactate from seizure possible also (5) Essential hypertension: Likely increased blood pressure due to withdrawal process as well which gradually improved with treatment above Patient started on clonidine in ER Continue clonidine 0.2 mg twice daily Patient with increasing pressures, but with generally normotensive pressures t hroughout day on day of discharge and with antihypertensives Follow-up as outpatient for additional measurements and titration of medications (6) Alcoholism: Case management consulted See patient Goals discussion above (7) Thrombocytopenia: suspect 2/2 direct toxic effects of alcohol. (8) Abnormal LFTs: Hepatic US: Increased hepatic echogenicity. This favors hepatic steatosis. Liver not overtly cirrhotic however superimposed hepatocellular disease cannot be excluded. No gallstones or biliary duct dilatation. Likely alcoholic hepatitis. Ammonia downtrending 01/15 AST/Bili downtrending 01/16 Patient discharged to continue outpatient CMP and follow-up to PCP (9) Hypomagnesemia: Normalized (10) DVT prophylaxis: SCDs defer on chemical means due to low platelets (11) Metabolic encephalopathy: -2nd to etoh withdrawal. - CT-H: Naf -elevated ammonia, downtrended - continue lactulose, ammonia check as outpatient Cognitively clear at time of discharge Total Time Total Time Spent Total Time Spent (In Minutes): Time spent day of discharge 45 minutes including direct patient care documentation, review of labs and images, and coordination of care. Discharge Plan Discharge Items Patient Disposition: Home - Self-Care Reason For Visit: SEVERE ETOH WITHDRAWL Discharge Diagnosis: Severe Alcohol Withdrawal Activity: Per Instructions section Non-emergency contact: Primary Care Provider Call non-emergency contact if: you have any medication questions, your symptoms worsen, your pain is not controlled, your pain is worsening, your pain is unusual for you, your pain is concerning for you and you have a fever Follow-up/Referrals: PCP,NO [Primary Care Provider] - Diet: Regular Addtl Attending Provider Instructions: You were seen in the hospital and treated in the ICU for severe alcohol withdraw. Your symptoms gradually improved, and you have been prescribed medications as below. You have been treated with a taper to treat withdrawal symptoms. To complete this taper please take one dose of chlordiazepoxide 10mg between 9pm-midnight on 01/19/2021. Your ammonia levels were very high during admission. This can cause confusion and altered mental changes; this is due to liver disease and alcohol use. Please take lactulose 30gm by mouth daily. This will cause loose bowel movements that remove ammonia from your body. Please followup with your primary care physician for recommendations on adjustments if needed to this medication. Your potassium levels were low during admission. You received oral repletion. These continue to be slightly low at discharge, you work given oral potassium and prescribed potassium supplement. Your potassium should be rechecked on blood work as noted below, please adjust your potassium supplement as needed as outpatient. It is critically important to remain abstinent for alcohol. You showed evidence of liver disease and you experienced life threatening withdrawal symptoms including tremors, seizure, and delirium tremens. This is life threatening and potentially fatal every time it is experienced. If you return to drinking you will likely go through similar or worse withdrawal in the future. You have been provided support resources in the area at discharge including information for [facility]. Please continue to followup with these resources, and a primary care provider once established as below. A followup appointment is being scheduled for you with a primary care provider by Annemarie Buchanan. You declined to have this done at time of discharge and wished to look for providers on you own as well. You should have blood work performed in 2-5 days to check your ammonia levels, and potassium levels. A script has been provided for this. Please discuss these results with your primary care provider at your followup appointment. If you develop any new or worsening symptoms including fever, chills, sweats, chest pain, chest pressure, difficulty breathing, uncontrolled nausea/vomiting, rash, wheezing, passing out or nearly passing out, bleeding, black/bloody bowel movements, or other new or concerning symptoms please call your primary care physician once established, or call 911 for re-evaluation in the emergency department if you are very concerned. Pending Studies at Discharge: No Stand-Alone Forms: [email or web address], Smoking Cessation Medications and DC Order Prescriptions: New clonidine HCl 0.1 mg Tablet 0.2 mg PO BID 30 Days Qty: 120 RF: 0 thiamine HCl (vitamin B1) [Vitamin B-1] 100 mg Tablet 100 mg PO DAILY 30 Days Qty: 30 RF: 0 pantoprazole 40 mg Tablet,Delayed Release (Dr/Ec) 40 mg PO DAILY 30 Days Qty: 30 RF: 0 folic acid 1 mg Tablet 1 mg PO QAM 30 Days Qty: 30 RF: 0 lactulose 10 gram packet 20 g PO DAILY Qty: 30 RF: 3 chlordiazepoxide HCl 10 mg capsule 10 mg PO BID Qty: 1 RF: 0 potassium chloride 10 mEq tablet extended release 10 meq PO DAILY Qty: 30 RF: 0 Continued lamotrigine [Lamictal] 150 mg tablet 150 mg PO BID RF: 0 lisinopril [Prinivil] 20 mg tablet 20 mg PO QAM RF: 0 Discharge Orders: Discharge Order (Routine); Ordered 01/19/21 Ordered By: Colten Sparks/Other Patient Handouts: Understanding the Disease of Addiction Admission Data Admit Date/Time: 01/13/21 15:25 Attending Provider: Colten Brasher Admit Provider: Bill Jernigan Primary Care Provider: PCP,NO Other Providers: Bill Jernigan ; Wilbur Li ; Constantin Zepeda ; Teodora Nunez ; Ashly Blanco ; Migel Graham Other Interventions: Discharge Summary Assessment (RN) Last Done: 01/19/21 13:32 Coding Level of Care Code D/C DAY MANAGEMENT >30 MINS Diagnoses Alcohol withdrawal F10.231 Complication of substance-induced condition: with delirium Alcohol withdrawal seizure F10.239; R56.9 Hypokalemia E87.6 High anion gap metabolic acidosis E87.2 Essential hypertension I10 Alcoholism F10.20 Thrombocytopenia D69.6 Abnormal LFTs R94.5 Hypomagnesemia E83.42 DVT prophylaxis Z29.9 Metabolic encephalopathy G93.41
[2021-01-19] MEDS ORDERED: POTASSIUM CHLORIDE CRTAB 20 MEQ TABCR PO STA (13:48)
== END 2021-01-19 14:25 | disposition home or self-care (01) | DRG 896 ==
LOC: ED 12:38 → 1E 15:25 → SUATTDRO 15:25 → 1E 18:20 → 3N 01-17 09:54

== ENCOUNTER 2021-11-11 17:09 | Inpatient (IN) ==
[2021-11-11] MEDS ORDERED: SODIUM CHLORIDE 0.9% 1000ML 2,000 ML IV ONE (17:29)
[2021-11-11] MEDS ORDERED: LORazepam 2 MG/1 ML VIAL IV STA ×2 (17:29→21:12)
[2021-11-11] MEDS ORDERED: ONDANSETRON INJ 2 MG/ML 2 ML VIAL IV STA (17:29)
[2021-11-11 18:00] LABS: INR 1.1 (0.9-1.1); Prothrombin Time 11.6 Seconds (9.0-12.0)
[2021-11-11 18:17] LABS: Alanine Aminotransferase 77 U/L (7-52); Albumin Globulin Ratio 1.1 (0.9-2); Albumin Level 4.7 gm/dl (3.4-5.0); Alkaline Phosphatase 206 U/L (34-104); Anion Gap 15 (3-11); Aspartate Aminotransferase 187 U/L (13-39); BUN Creatinine Ratio 7.1 (10-20); Bilirubin,Total 3.3 mg/dl (0.2-1.0); Blood Urea Nitrogen 6 mg/dl (6-23); Calcium 9.5 mg/dl (8.5-10.1); Carbon Dioxide 21 mmol/L (21-32); Chloride 103 mmol/L (98-107); Creatine Kinase 787 U/L (30-223); Est GFR (African American) 122.8 ml/min; Globulin 4.3 gm/dl (2.5-4.0); Glucose 144 mg/dl (70-99(Fasting)); Magnesium 2.3 mg/dl (1.7-2.4); Potassium 3.1 mmol/L (3.5-5.1); Sodium 139 mmol/L (136-145)
[2021-11-11 18:25] LABS: Hematocrit (blood only) 41.5 % (40.1-51.0); Hemoglobin 14.6 g/dl (14.0-18.0); Mean Corpuscular Hemoglobin 38.5 pg (25.0-34.0); Mean Corpuscular Hgb Conc 35.2 g/dL (32.0-36.0); Mean Corpuscular Volume 109.5 fL (80.0-100.0); Mean Platelet Volume 10.1 fL (9.4-12.4); Platelet Count 82 K/uL (130-400); RDW Coefficient of Variation 13.6 % (11.5-14.5); RDW Standard Deviation 55.8 fL (36.4-46.3); Red Blood Count 3.79 M/uL (4.63-6.08); White Blood Count 5.82 K/ul (4.8-10.8)
[2021-11-11 18:34] LABS: Basophils # (auto) 0.01 K/uL (0-0.2); Basophils % (auto) 0.2 %; Immature Granulocytes # (auto) 0.02 K/uL (0.00-0.02); Immature Granulocytes % (auto) 0.3 %; Lymphocytes # (auto) 0.42 K/uL (1.2-3.4); Lymphocytes % (auto) 7.2 %; Monocytes # (auto) 0.46 K/uL (0.24-0.82); Monocytes % (auto) 7.9 %; Neutrophils # (auto) 4.91 K/uL (1.4-6.5); Neutrophils % (auto) 84.4 %; Platelet Estimate Decreased (Normal); Polychromasia 1+; Toxic Vacuolation 1+
[2021-11-11 19:10] LABS: Appearance Urine Clear (Clear); Bacteria Urine Automated Negative (Negative); Bilirubin Urine Negative (Negative); Blood Urine 3+ (Negative); Color Urine Dark Yellow; Epithelial Cell Urine Auto >30 /lpf (0-5); Glucose Urine UA Negative (Negative); Ketones Urine 1+ (Negative); Leukocyte Esterase Urine Negative (Negative); Nitrite Urine Negative (Negative); Protein Urine 3+ (Negative); Specific Gravity Urine 1.017 (1.000-1.030); Urobilinogen Urine Negative (Negative); pH Urine 6.5 (4.5-7.5)
--- NOTE | 2021-11-11 19:35 | Emergency Department Note ---
Impression & Plan Seizure, Thrombocytopenia, Elevated LFTs, CHI (closed head injury) ED Provider Note INFORMANT: Patient ED PROVIDER(S): Diego Camara MD CHIEF COMPLAINT: Tremors PLAN: Disposition: Admitted Condition: Good Outpatient prescription management: none Referral: None MEDICAL DECISION MAKING: Patient presented because of tremors and he has history of seizure and alcohol withdrawal. The patient was diaphoretic, tachycardic and hypertensive. I did have concerns for alcohol withdrawal and the patient was hydrated. He was given Zofran and 2 mg of Ativan. On reassessment he did feel better and clinically looked better. His vital signs did improve somewhat. His work-up revealed a no rmal sinus rhythm on ECG. His total CK was elevated concerning for mild rhabdomyolysis. The patient's LFTs were also elevated and they were slightly worse than prior. Urinalysis was unremarkable. Chemistry panel did reveal hypokalemia and this was repleted. Patient was found to have thrombocytopenia on his CBC. The patient underwent head CT and cervical spine CT due to the traumatic findings noted below. CT scans did not reveal any acute intracranial bleeding or fracture. The patient was reassessed. He was given his evening lamotrigine, clonidine, oral potassium and also an additional dose of Ativan. He stated again that he has not been drinking recently. His visit today is very similar to his last presentation. I discussed my concerns and recommended further management in the hospital. Patient and family were in agreement. Consultation was made with Dr. Mike Lombardo of the [facility] service. Patient was evaluated in the ER for further management. Triage Nursing notes reviewed and agree them. Vital Signs: reviewed and remarkable for hypertension and tachycardia Differential diagnosis: Seizure, alcohol withdrawal, infection, dehydration, metabolic abnormality, hypo/hyperglycemia, electrolyte disturbance, anemia, hypoxia, cardiac sources, intracerebral event, toxicologic, neurologic, as well as other pathologies. Diagnostics interpreted by me: ECG: Twelve-lead ECG reveals a normal sinus rhythm at 89 bpm. Left atrial margin. Prolonged QT present. No ST elevation or depression. Cardiac Monitorin Lead ECG performed and revealed Normal sinus rhythm at 92, normal [place], QRS normal. No elevation or depression. No PACs or PVCs Imaging studies: CT scans as noted below. HPI: The patient is a 46year old male who presents to the Emergency Room with complaints of possible seizure. This started today and is described as shaking and not remembering.. The patient also notes the following associated symptoms, feeling thirsty, nauseated with vomiting, diaphoresis. The patient has found no relieving factors. Current pain is rated as 0/10. Patient's father is present and helps. He notes that the patient was shaking and was confused. He did roll out of bed. He did bump his forehead and nose. He also suffered an abrasion to the left foot. Patient has a history of alcohol abuse but denies any current alcohol use. States has been many month since his last drink. Pt denies headache, fevers, chills, diaphoresis, visual changes, neck pain, chest pain, breathing difficulties, abdominal pain, back pain, melena, hematochezia, urinary symptoms, numbness, focal weakness, lymphadenopathy, rash, or other complaints. ROS: See above HPI for pertinent positives & negatives. A total of 10 systems reviewed and were otherwise negative. PAST MEDICAL HISTORY:See Below , seizure, alcohol withdrawal PAST SURGICAL HISTORY:See Below, FAMILY HISTORY:See Below SOCIAL HISTORY:See Below, non-smoker HOME MEDICATIONS:See Below ALLERGIES:See Below VITALS:See Below PHYSICAL EXAMINATION: GENERAL: Awake, alert, anxious-appearing, diaphoretic in no distress HENT: Normocephalic, forehead contusion and abrasion noted. There is also abrasion noted over the bridge of the nose without bony deformity or tenderness. No epistaxis or septal hematoma.. Oropharynx unremarkable. EYES: Normal conjunctiva. Sclera non-icteric. PERRLA. EOMI. NECK: Inspection normal. Non-tender. Supple. No nuchal rigidity. FROM. No masses. RESPIRATORY: Clear to auscultation. No wheezes. No rales. Normal respiratory effort. CARDIAC: Tachycardic rate. Normal rhythm. No murmurs. No rubs. Extremities warm and well perfused. Pulses equal. No JVD. GI: Soft, non-distended. No tenderness to palpation. No rebound or guarding. No masses. RECTAL: Deferred. MUSCULOSKELETAL: There is an abrasion noted to the dorsal aspect of the left foot otherwise the extremities are atraumatic. Chest examination reveals no tenderness. The back is symmetrical on inspection without obvious abnormality. There is no CVA tenderness to palpation. No joint edema. LOWER EXTREMITIES: Calves are equal size bilaterally and non-tender. No edema. No discoloration. NEURO: Resting tremor present. Normal sensorium. No sensory or motor deficits noted. SKIN: No rash or jaundice noted. Diego Camara MD Past Med/Surg History Medical History (Updated 11/11/21 @ 19:35 by Diego Camara MD) Alcoholism Delirium tremens Essential hypertension Seizures Surgical History (Updated 01/13/21 @ 15:35 by Bill Jernigan) No pertinent past surgical history Family History (Updated 01/13/21 @ 15:36 by Bill Jernigan) Father Skin cancer of face Denies family history of Alcoholism Seizure disorder Social History (Updated 01/13/21 @ 15:38 by Bill Jernigan) Smoking Status: Never smoker Cigarettes Per Day: 20; Hx Alcohol Use: Yes Alcohol type: beer, wine and hard liquor Alcohol type Comment: DAILY consumption, mixture of bottle of wine, bottle of liquor, and/or beer Hx Substance Use: No Preferred Language: Tajik Communication Ability: Effective Staff [employer] Officer Required: No Beliefs That Will Affect Care: None marital status: marital status details: x 2 Current Living Situation: Parent Current Living Situation Comment: lives w/ father in [place] current occupational status: 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[employer] How many Children do You have: 0 Feels Safe at Home: Yes Assistive Devices: Walker Allergies Allergies Allergy/AdvReac Type Severity Reaction Status Date / Time No Known Allergies Allergy Mild Verified 11/11/21 20:10 Home Meds Home Medications Medication Instructions Recorded Confirmed lamotrigine 150 mg tablet 150 mg PO BID 01/13/21 11/11/21 (Lamictal) clonidine HCl 0.1 mg tablet 0.2 mg PO BID 11/11/21 11/11/21 folic acid 1 mg tablet 1 mg PO DAILY 11/11/21 11/11/21 lisinopril 20 mg tablet 20 mg PO DAILY 11/11/21 11/11/21 Previous Rx's Medication Instructions Recorded potassium chloride 10 mEq 10 meq PO DAILY #30 tabs 01/19/21 tablet,extended release Results & Data (ED) Vital Signs Vital Signs - 24 hr 11/11/21 17:17 11/11/21 20:02 Temperature 36.9 C Temperature Source Temporal Artery Scan Pulse Rate 102 H Pulse Rate [Finger] 79 Respiratory Rate 20 20 Respiratory Depth Normal Normal Blood Pressure 190/116 H Blood Pressure [Left Arm] 191/116 H Blood Pressure Mean 140 Blood Pressure Mean [Left Arm] 141 Pulse Oximetry 96 94 Oxygen Delivery Method Room Air Room Air Sepsis Recent Fever Within 48 Hours No Sepsis New/Unexplained Change in Mental Status No Sepsis Action Taken by Nursing No Action Required Laboratory Data Result diagrams: 11/11/21 17:38 11/11/21 17:38 Lab Results 11/11/21 11/11/21 11/11/21 Range/Units 17:20 17:38 17:38 WBC 5.82 (4.8-10.8) K/ul RBC 3.79 L (4.63-6.08) M/uL Hgb 14.6 (14.0-18.0) g/dl Hct 41.5 (40.1-51.0) % MCV 109.5 H (80.0-100.0) fL MCH 38.5 H (25.0-34.0) pg MCHC 35.2 (32.0-36.0) g/dL RDW Std Deviation 55.8 H (36.4-46.3) fL RDW Coeff of Amena 13.6 (11.5-14.5) % Plt Count 82 L (130-400) K/uL MPV 10.1 (9.4-12.4) fL Immature Gran % (Auto) 0.3 % Neut % (Auto) 84.4 % Lymph % (Auto) 7.2 % [place] % (Auto) 7.9 % Eos % (Auto) 0.0 % Baso % (Auto) 0.2 % Neut # (Auto) 4.91 (1.4-6.5) K/uL Lymph # (Auto) 0.42 L (1.2-3.4) K/uL [place] # (Auto) 0.46 (0.24-0.82) K/uL Eos # (Auto) 0.00 (0-0.50) K/uL Baso # (Auto) 0.01 (0-0.2) K/uL Immature Gran # (Auto) 0.02 (0.00-0.02) K/uL Toxic Vacuolation 1+ Platelet Estimate Decreased L (Normal) Polychromasia 1+ PT 11.6 (9.0-12.0) Seconds INR 1.1 (0.9-1.1) Sodium (136-145) mmol/L Potassium (3.5-5.1) mmol/L Chloride (98-107) mmol/L Carbon Dioxide (21-32) mmol/L Anion Gap (3-11) BUN (6-23) mg/dl Creatinine (0.6-1.4) mg/dl Est Cr Clr Drug Dosing Est GFR ( Amer) ml/min Est GFR (Non-Af Amer) ml/min BUN/Creatinine Ratio (10-20) Glucose (70-99(Fasting)) mg/dl POC Glucose 145 H (70-99) mg/dl Calcium (8.5-10.1) mg/dl Magnesium (1.7-2.4) mg/dl Total Bilirubin (0.2-1.0) mg/dl AST (13-39) U/L ALT (7-52) U/L Alkaline Phosphatase (34-104) U/L Total Creatine Kinase (30-223) U/L Total Protein (6.0-8.3) gm/dl Albumin (3.4-5.0) gm/dl Globulin (2.5-4.0) gm/dl Albumin/Globulin Ratio (0.9-2) TSH (0.300-4.500) uIu/ml Urine Color Urine Appearance (Clear) Urine pH (4.5-7.5) Ur Specific [place] (1.000-1.030) Urine Protein (Negative) Urine Glucose (UA) (Negative) Urine Ketones (Negative) Urine Blood (Negative) Urine Nitrite (Negative) Urine Bilirubin (Negative) Urine Urobilinogen (Negative) Ur Leukocyte Esterase (Negative) Urine WBC (Auto) (0-5) /hpf Urine RBC (Auto) (0-4) /hpf U Hyaline Cast (Auto) (0-5) /lpf U Epithel Cells (Auto) (0-5) /lpf Urine Bacteria (Auto) (Negative) Ur Renal Epithelial Cell Ethyl Alcohol mg/dL (<10.0) mg/dl SARS-CoV-2, RNA, NAAT (NEGATIVE) 11/11/21 11/11/21 11/11/21 Range/Units 17:38 17:38 17:38 WBC (4.8-10.8) K/ul RBC (4.63-6.08) M/uL Hgb (14.0-18.0) g/dl Hct (40.1-51.0) % MCV (80.0-100.0) fL MCH (25.0-34.0) pg MCHC (32.0-36.0) g/dL RDW Std Deviation (36.4-46.3) fL RDW Coeff of Amena (11.5-14.5) % Plt Count (130-400) K/uL MPV (9.4-12.4) fL Immature Gran % (Auto) % Neut % (Auto) % Lymph % (Auto) % [place] % (Auto) % Eos % (Auto) % Baso % (Auto) % Neut # (Auto) (1.4-6.5) K/uL Lymph # (Auto) (1.2-3.4) K/uL [place] # (Auto) (0.24-0.82) K/uL Eos # (Auto) (0-0.50) K/uL Baso # (Auto) (0-0.2) K/uL Immature Gran # (Auto) (0.00-0.02) K/uL Toxic Vacuolation Platelet Estimate (Normal) Polychromasia PT (9.0-12.0) Seconds INR (0.9-1.1) Sodium 139 (136-145) mmol/L Potassium 3.1 L (3.5-5.1) mmol/L Chloride 103 (98-107) mmol/L Carbon Dioxide 21 (21-32) mmol/L Anion Gap 15 H (3-11) BUN 6 (6-23) mg/dl Creatinine 0.85 (0.6-1.4) mg/dl Est Cr Clr Drug Dosing Not Reportable Est GFR ( Amer) 122.8 ml/min Est GFR (Non-Af Amer) 106.0 ml/min BUN/Creatinine Ratio 7.1 L (10-20) Glucose 144 H (70-99(Fasting)) mg/dl POC Glucose (70-99) mg/dl Calcium 9.5 (8.5-10.1) mg/dl Magnesium 2.3 (1.7-2.4) mg/dl Total Bilirubin 3.3 H (0.2-1.0) mg/dl AST 187 H (13-39) U/L ALT 77 H (7-52) U/L Alkaline Phosphatase 206 H (34-104) U/L Total Creatine Kinase 787 H (30-223) U/L Total Protein 9.0 H (6.0-8.3) gm/dl Albumin 4.7 (3.4-5.0) gm/dl Globulin 4.3 H (2.5-4.0) gm/dl Albumin/Globulin Ratio 1.1 (0.9-2) TSH 0.876 (0.300-4.500) uIu/ml Urine Color Urine Appearance (Clear) Urine pH (4.5-7.5) Ur Specific [place] (1.000-1.030) Urine Protein (Negative) Urine Glucose (UA) (Negative) Urine Ketones (Negative) Urine Blood (Negative) Urine Nitrite (Negative) Urine Bilirubin (Negative) Urine Urobilinogen (Negative) Ur Leukocyte Esterase (Negative) Urine WBC (Auto) (0-5) /hpf Urine RBC (Auto) (0-4) /hpf U Hyaline Cast (Auto) (0-5) /lpf U Epithel Cells (Auto) (0-5) /lpf Urine Bacteria (Auto) (Negative) Ur Renal Epithelial Cell Ethyl Alcohol mg/dL < 10.0 (<10.0) mg/dl SARS-CoV-2, RNA, NAAT (NEGATIVE) 11/11/21 11/11/21 Range/Units 18:59 Unknown WBC (4.8-10.8) K/ul RBC (4.63-6.08) M/uL Hgb (14.0-18.0) g/dl Hct (40.1-51.0) % MCV (80.0-100.0) fL MCH (25.0-34.0) pg MCHC (32.0-36.0) g/dL RDW Std Deviation (36.4-46.3) fL RDW Coeff of Amena (11.5-14.5) % Plt Count (130-400) K/uL MPV (9.4-12.4) fL Immature Gran % (Auto) % Neut % (Auto) % Lymph % (Auto) % [place] % (Auto) % Eos % (Auto) % Baso % (Auto) % Neut # (Auto) (1.4-6.5) K/uL Lymph # (Auto) (1.2-3.4) K/uL [place] # (Auto) (0.24-0.82) K/uL Eos # (Auto) (0-0.50) K/uL Baso # (Auto) (0-0.2) K/uL Immature Gran # (Auto) (0.00-0.02) K/uL Toxic Vacuolation Platelet Estimate (Normal) Polychromasia PT (9.0-12.0) Seconds INR (0.9-1.1) Sodium (136-145) mmol/L Potassium (3.5-5.1) mmol/L Chloride (98-107) mmol/L Carbon Dioxide (21-32) mmol/L Anion Gap (3-11) BUN (6-23) mg/dl Creatinine (0.6-1.4) mg/dl Est Cr Clr Drug Dosing Est GFR ( Amer) ml/min Est GFR (Non-Af Amer) ml/min BUN/Creatinine Ratio (10-20) Glucose (70-99(Fasting)) mg/dl POC Glucose (70-99) mg/dl Calcium (8.5-10.1) mg/dl Magnesium (1.7-2.4) mg/dl Total Bilirubin (0.2-1.0) mg/dl AST (13-39) U/L ALT (7-52) U/L Alkaline Phosphatase (34-104) U/L Total Creatine Kinase (30-223) U/L Total Protein (6.0-8.3) gm/dl Albumin (3.4-5.0) gm/dl Globulin (2.5-4.0) gm/dl Albumin/Globulin Ratio (0.9-2) TSH (0.300-4.500) uIu/ml Urine Color Dark Yellow Urine Appearance Clear (Clear) Urine pH 6.5 (4.5-7.5) Ur Specific [place] 1.017 (1.000-1.030) Urine Protein 3+ H (Negative) Urine Glucose (UA) Negative (Negative) Urine Ketones 1+ H (Negative) Urine Blood 3+ H (Negative) Urine Nitrite Negative (Negative) Urine Bilirubin Negative (Negative) Urine Urobilinogen Negative (Negative) Ur Leukocyte Esterase Negative (Negative) Urine WBC (Auto) 1-5 (0-5) /hpf Urine RBC (Auto) 5-10 H (0-4) /hpf U Hyaline Cast (Auto) 5-10 H (0-5) /lpf U Epithel Cells (Auto) >30 H (0-5) /lpf Urine Bacteria (Auto) Negative (Negative) Ur Renal Epithelial Cell Not Reportable Ethyl Alcohol mg/dL (<10.0) mg/dl SARS-CoV-2, RNA, NAAT NEGATIVE (NEGATIVE) Administered Medications Multivitamins 10 ml/ Thiamine HCl 100 mg/ Folic Acid 1 mg/Sodium Chloride 1,011.2 mls @ 500 mls/hr IV .Q2H2M ONE Stop: 11/11/21 23:41 Last Admin: 11/11/21 22:04 Dose: 500 mls/hr Documented By: FLOR Discontinued Medications Clonidine HCl (Clonidine Hcl 0.1 Mg Tab) 0.2 mg PO NOW ONE Stop: 11/11/21 21:11 Last Admin: 11/11/21 21:35 Dose: 0.2 mg Documented By: ALVINO Sodium Chloride (Nss 1000ml) 2,000 mls @ 999 mls/hr IV .Q2H1M ONE Stop: 11/11/21 19:29 Last Infusion: 11/11/21 20:50 Dose: 0 mls/hr Documented By: Admin: 11/11/21 17:57 Dose: 999 mls/hr Documented By: [id number] Lamotrigine (Lamotrigine 100 Mg Tab) 150 mg PO NOW STA Stop: 11/11/21 21:11 Last Admin: 11/11/21 21:33 Dose: 150 mg Documented By: ALVINO Lorazepam (Lorazepam 2 Mg/1 Ml Vial) 2 mg IV NOW STA; Protocol Stop: 11/11/21 17:30 Last Admin: 11/11/21 17:46 Dose: 2 mg Documented By: [id number] Lorazepam (Lorazepam 2 Mg/1 Ml Vial) 1 mg IV NOW STA; Protocol Stop: 11/11/21 21:13 Last Admin: 11/11/21 21:35 Dose: 1 mg Documented By: ALVINO Ondansetron HCl (Ondansetron Inj 2 Mg/Ml 2 Ml Vial) 4 mg IV NOW STA Stop: 11/11/21 17:30 Last Admin: 11/11/21 17:46 Dose: 4 mg Documented By: [id number] Potassium Chloride (Potassium Chloride Crtab 20 Meq Tabcr) 20 meq PO NOW STA Stop: 11/11/21 21:11 Last Admin: 11/11/21 21:35 Dose: 20 meq Documented By: MT Imaging Data Radiologist's Impression: Cervical Spine CT 11/11/21 18:29 CT cervical spine wo con CLINICAL HISTORY: seizure TECHNIQUE: Multidetector row helical CT of the cervical spine was performed without administration of intravenous contrast. Coronal and sagittal reformations were obtained. Automated dose lowering techniques and/or adjustment according to patient size were utilized for this exam. Comparison: None available at the time of this dictation. FINDINGS: No acute fractures or subluxations are identified. The vertebral body heights and disk spaces are well maintained. The alignment is normal. Soft tissues are unremarkable. IMPRESSION: No evidence of acute bony injury. ACT 112: Negative or not required by law. Electronically signed by: Arie Dey M.D. 11/11/2021 7:[address] 11/11/21 18:29 CT head/brain wo con CLINICAL HISTORY: seizure Technique: Contiguous axial CT images of the head were acquired from the base of the skull to the vertex without intravenous contrast administration. Images were viewed in brain, subdural and bone windows. Automated dose lowering techniques and/or adjustment according to patient size were utilized for this exam. Comparison: Comparison is made to CT head 01/13/2021 Findings: Areas of decreased attenuation are present in the periventricular and subcortical white matter bilaterally consistent with small vessel ischemic disease. Generalized cerebral atrophy with commensurate enlargement of the ventricles, sulci, and cisterns is also present. There is no acute intracranial hemorrhage or evidence of acute territorial infarction. No shift of the midline structures, mass effect, or extra-axial abnormalities are shown. Atherosclerotic calcifications are present in the intracranial segments of the internal carotid arteries. Imaged portions of the paranasal sinuses and mastoid air cells are clear. The orbits appear normal. There are no acute fractures of the calvaria or scalp swelling. Impression: No acute intracranial hemorrhage, no evidence of acute territorial infarction or other acute intracranial disease process. ACT 112: Negative or not required by law. Electronically signed by: Arie Dey M.D. 11/11/2021 7:36 PM Discharge Plan Visit Data Chief Complaint: Illness Stated Complaint: VOMITING, NAUSEA ED Provider: Diego Camara Discharge Problem: Seizure, Thrombocytopenia, Elevated LFTs, CHI (closed head injury) Forms Stand Alone Forms: [facility] Prescriptions Prescriptions: No Action lamotrigine [Lamictal] 150 mg tablet 150 mg PO BID potassium chloride 10 mEq tablet extended release 10 meq PO DAILY Qty: 30 0RF Rx Instructions: LAST REFILL 02/2021 clonidine HCl 0.1 mg tablet 0.2 mg PO BID lisinopril 20 mg tablet 20 mg PO DAILY folic acid 1 mg tablet 1 mg PO DAILY Referrals Referrals: Luis Antonio Guevara [Primary Care Provider] -
--- NOTE | 2021-11-11 19:37 | CT Scan Report ---
CT head/brain wo con CLINICAL HISTORY: seizure Technique: Contiguous axial CT images of the head were acquired from the base of the skull to the jana lindy without intravenous contrast administration. Images were viewed in brain, subdural and bone [facility] Automated dose lowering techniques and/or adjustment according to patient size were utilized for this exam. Comparison: Comparison is made to CT head 01/13/2021 Findings: Areas of decreased attenuation are present in the periventricular and subcortical white matter bilate rally consistent with small vessel ischemic disease. Generalized cerebral atrophy with commensurate e nlargement of the ventricles, sulci, and cisterns is also present. There is no acute intracranial hem orrhage or evidence of acute territorial infarction. No shift of the midline structures, mass effect, or extra-axial abnormalities are shown. Atherosclerotic calcifications are present in the intracran ial segments of the internal carotid arteries. Imaged portions of the paranasal sinuses and mastoid air cells are clear. The orbits appear normal. There are no acute fractures of the calvaria or scalp swelling. Impression: No acute intracranial hemorrhage, no evidence of acute territorial infarction or other acute intracra nial disease process. ACT 112: Negative or not required by law. Electronically signed by: Arie Dey M.D. 11/11/2021 7:36 PM
--- NOTE | 2021-11-11 19:42 | CT Scan Report ---
CT cervical spine wo con CLINICAL HISTORY: seizure TECHNIQUE: Multidetector row helical CT of the cervical spine was performed without administration of intravenous contrast. Coronal and sagittal reformations were obtained. Automated dose lowering techn iques and/or adjustment according to patient size were utilized for this exam. Comparison: None available at the time of this dictation. FINDINGS: No acute fractures or subluxations are identified. The vertebral body heights and disk spaces are wel l maintained. The alignment is normal. Soft tissues are unremarkable. IMPRESSION: No evidence of acute bony injury. ACT 112: Negative or not required by law. Electronically signed by: Arie Dey M.D. 11/11/2021 7:39 PM
[2021-11-11] MEDS ORDERED: lamoTRIgine 100 MG TAB PO STA (21:10)
[2021-11-11] MEDS ORDERED: POTASSIUM CHLORIDE CRTAB 20 MEQ TABCR PO STA (21:10)
[2021-11-11] MEDS ORDERED: cloNIDine HCL 0.1 MG TAB PO ONE (21:10)
[2021-11-11] MEDS ORDERED: GABAPENTIN 600 MG TAB PO ONE (21:40)
[2021-11-11] MEDS ORDERED: MULTI-VITAMIN INFUSION 10 ML, THIAMINE HCL 100 MG, FOLIC ACID 1 MG in SODIUM CHLORIDE 0... IV ONE (21:40)
[2021-11-11] MEDS ORDERED: GABAPENTIN 1200MG ALCOHOL WITHDRAWAL LOAD PO STA (21:40)
[2021-11-11] MEDS ORDERED: LORazepam 1 MG in SYRINGE 0.5 ML IV PRN (21:40)
[2021-11-11] MEDS ORDERED: LORazepam 3 MG in SYRINGE 1.5 ML IV PRN (21:40)
[2021-11-11] MEDS ORDERED: Ativan IV Alcohol Withdrawal--Active Protocol IV PRN (21:40)
--- NOTE | 2021-11-11 21:52 | History & Physical Report ---
Date of Service November 11, 2021 Assessment & Plan (1) Alcohol withdrawal: Plan: Moderately severe alcohol withdrawal/alcoholism/history alcohol withdrawal seizures/alcoholic liver disease- Liver enzymes are worse than usual Placed on AWSS protocol with IV Ativan and gabapentin seizure protocol Banana bag x1 NSS + KCl 20 mEq at 125 mils per hour after banana bag completed 500 mg p.o. daily Renee cath 1 mg p.o. daily Nephrocaps 1 p.o. twice daily Zofran 4 mg IV every 6 hours as needed Continue lamotrigine 150 mg p.o. twice daily (2) Alcoholism: Plan: Cessation counseling (3) Essential hypertension: Plan: Continue lisinopril 20 mg daily, lamotrigine 100 mg p.o. twice daily and clonidine 0.2 mg p.o. twice daily (4) Alcohol withdrawal seizure: Plan: See above (5) Thrombocytopenia: Plan: Monitor with serial labs (6) Hypokalemia: Plan: Potassium 3.1 upon admission replace both orally and IV (7) Alcoholic liver disease: Plan: Enzymes worse than usual follow serially History of Present Illness Chief Complaint: The patient presents to the emergency department with worsening tremors, and history of seizure activity associated with alcohol withdrawal Primary Care Provider: Luis Antonio Guevara The patient is a 46-year-old male with past medical history including alcohol withdrawal seizures, hepatic encephalopathy, alcoholic liver disease, elevated liver enzymes, hypertension, alcoholism and episodes of alcohol withdrawal. He presents with severe tremors and shakes, and in florid alcohol withdrawal. Allergies Allergy/AdvReac Type Severity Reaction Status Date / Time No Known Allergies Allergy Mild Verified 11/11/21 20:10 Home Medications Medication Instructions Recorded Confirmed Type lamotrigine 150 mg tablet 150 mg PO BID 01/13/21 11/11/21 History (Lamictal) potassium chloride 10 mEq 10 meq PO DAILY #30 tabs 01/19/21 11/11/21 Rx tablet,extended release clonidine HCl 0.1 mg tablet 0.2 mg PO BID 11/11/21 11/11/21 History folic acid 1 mg tablet 1 mg PO DAILY 11/11/21 11/11/21 History lisinopril 20 mg tablet 20 mg PO DAILY 11/11/21 11/11/21 History Past Med/Surg History Medical History (Updated 11/11/21 @ 19:35 by Diego Camara MD) Alcoholism Delirium tremens Essential hypertension Seizures Surgical History (Updated 01/13/21 @ 15:35 by Bill Jernigan) No pertinent past surgical history Family History (Updated 01/13/21 @ 15:36 by Bill Jernigan) Father Skin cancer of face Denies family history of Alcoholism Seizure disorder Social History (Updated 01/13/21 @ 15:38 by Bill Jernigan) Smoking Status: Current every day smoker Cigarettes Per Day: 10; Hx Alcohol Use: Yes Alcohol type: hard liquor Alcohol type Comment: DAILY consumption, mixture of bottle of wine, bottle of liquor, and/or beer Hx Substance Use: No Preferred Language: [place] Communication Ability: Effective Civil Preparedness Officer Required: No Beliefs That Will Affect Care: None marital status: marital status details: x 2 Current Living Situation: Parent Current Living Situation Comment: lives w/ father in [place] current occupational status: 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 The review of systems is otherwise negative other than for that already noted above, and at least 10 systems have been reviewed. Physical Exam Physical Exam: The patient is awake, alert and oriented 3, normocephalic and atraumatic, sitting upright in bed with moderately severe generalized shakes and tremors HEENT--PERRL, EOMI, mucous membranes and oropharynx dry. Neck--supple. No JVD. No bruits. Thyroid normal, trachea midline, no adenopathy. Heart--normal S1 and S2. No murmurs, rubs or gallops. Lungs--clear bilaterally, no respiratory distress, no accessory muscle use. Abdomen--normal bowel sounds and soft. Nontender. Nondistended, no hernias or masses, no organomegaly. Extremities--no cyanosis or clubbing. No edema. There are good distal pulses b/l. Dermatologic--normal skin turgor, normal color, no abnormal lymph nodes, no rash. Neurologic--cranial nerves II through XII grossly intact. Rheumatologic--normal range of motion. Psychiatric--normal affect. Results & Data Results & Data ([facility]) Vital Signs (Past 12 Hours) Vital Signs Temp Pulse Pulse Resp BP BP Pulse Ox 11/11/21 20:02 79 20 191/116 H 94 11/11/21 17:17 36.9 C 102 H 20 190/116 H 96 O2 Del Method 11/11/21 20:02 Room Air 11/11/21 17:17 Room Air Laboratory Results Laboratory Results WBC 5.82 K/ul (4.8-10.8) 11/11/21 17:38 RBC 3.79 M/uL (4.63-6.08) L 11/11/21 17:38 Hgb 14.6 g/dl (14.0-18.0) 11/11/21 17:38 Hct 41.5 % (40.1-51.0) 11/11/21 17:38 MCV 109.5 fL (80.0-100.0) H 11/11/21 17:38 MCH 38.5 pg (25.0-34.0) H 11/11/21 17:38 MCHC 35.2 g/dL (32.0-36.0) 11/11/21 17:38 RDW Std Deviation 55.8 fL (36.4-46.3) H 11/11/21 17:38 RDW Coeff of Amena 13.6 % (11.5-14.5) 11/11/21 17:38 Plt Count 82 K/uL (130-400) L 11/11/21 17:38 MPV 10.1 fL (9.4-12.4) 11/11/21 17:38 Immature Gran % (Auto) 0.3 % 11/11/21 17:38 Neut % (Auto) 84.4 % 11/11/21 17:38 Lymph % (Auto) 7.2 % 11/11/21 17:38 [place] % (Auto) 7.9 % 11/11/21 17:38 Eos % (Auto) 0.0 % 11/11/21 17:38 Baso % (Auto) 0.2 % 11/11/21 17:38 Neut # (Auto) 4.91 K/uL (1.4-6.5) 11/11/21 17:38 Lymph # (Auto) 0.42 K/uL (1.2-3.4) L 11/11/21 17:38 [place] # (Auto) 0.46 K/uL (0.24-0.82) 11/11/21 17:38 Eos # (Auto) 0.00 K/uL (0-0.50) 11/11/21 17:38 Baso # (Auto) 0.01 K/uL (0-0.2) 11/11/21 17:38 Immature Gran # (Auto) 0.02 K/uL (0.00-0.02) 11/11/21 17:38 Toxic Vacuolation 1+ 11/11/21 17:38 Platelet Estimate Decreased (Normal) L 11/11/21 17:38 Polychromasia 1+ 11/11/21 17:38 PT 11.6 Seconds (9.0-12.0) 11/11/21 17:38 INR 1.1 (0.9-1.1) 11/11/21 17:38 Sodium 139 mmol/L (136-145) 11/11/21 17:38 Potassium 3.1 mmol/L (3.5-5.1) L 11/11/21 17:38 Chloride 103 mmol/L (98-107) 11/11/21 17:38 Carbon Dioxide 21 mmol/L (21-32) 11/11/21 17:38 Anion Gap 15 (3-11) H 11/11/21 17:38 BUN 6 mg/dl (6-23) 11/11/21 17:38 Creatinine 0.85 mg/dl (0.6-1.4) 11/11/21 17:38 Est Cr Clr Drug Dosing Not Reportable 11/11/21 17:38 Est GFR ( Amer) 122.8 ml/min 11/11/21 17:38 Est GFR (Non-Af Amer) 106.0 ml/min 11/11/21 17:38 BUN/Creatinine Ratio 7.1 (10-20) L 11/11/21 17:38 Glucose 144 mg/dl (70-99(Fasting)) H 11/11/21 17:38 POC Glucose 145 mg/dl (70-99) H 11/11/21 17:20 Calcium 9.5 mg/dl (8.5-10.1) 11/11/21 17:38 Magnesium 2.3 mg/dl (1.7-2.4) 11/11/21 17:38 Total Bilirubin 3.3 mg/dl (0.2-1.0) H 11/11/21 17:38 AST 187 U/L (13-39) H 11/11/21 17:38 ALT 77 U/L (7-52) H 11/11/21 17:38 Alkaline Phosphatase 206 U/L (34-104) H 11/11/21 17:38 Total Creatine Kinase 787 U/L (30-223) H 11/11/21 17:38 Total Protein 9.0 gm/dl (6.0-8.3) H 11/11/21 17:38 Albumin 4.7 gm/dl (3.4-5.0) 11/11/21 17:38 Globulin 4.3 gm/dl (2.5-4.0) H 11/11/21 17:38 Albumin/Globulin Ratio 1.1 (0.9-2) 11/11/21 17:38 TSH 0.876 uIu/ml (0.300-4.500) 11/11/21 17:38 Urine Color Dark Yellow 11/11/21 18:59 Urine Appearance Clear (Clear) 11/11/21 18:59 Urine pH 6.5 (4.5-7.5) 11/11/21 18:59 Ur Specific [place] 1.017 (1.000-1.030) 11/11/21 18:59 Urine Protein 3+ (Negative) H 11/11/21 18:59 Urine Glucose (UA) Negative (Negative) 11/11/21 18:59 Urine Ketones 1+ (Negative) H 11/11/21 18:59 Urine Blood 3+ (Negative) H 11/11/21 18:59 Urine Nitrite Negative (Negative) 11/11/21 18:59 Urine Bilirubin Negative (Negative) 11/11/21 18:59 Urine Urobilinogen Negative (Negative) 11/11/21 18:59 Ur Leukocyte Esterase Negative (Negative) 11/11/21 18:59 Urine WBC (Auto) 1-5 /hpf (0-5) 11/11/21 18:59 Urine RBC (Auto) 5-10 /hpf (0-4) H 11/11/21 18:59 U Hyaline Cast (Auto) 5-10 /lpf (0-5) H 11/11/21 18:59 U Epithel Cells (Auto) >30 /lpf (0-5) H 11/11/21 18:59 Urine Bacteria (Auto) Negative (Negative) 11/11/21 18:59 Ur Renal Epithelial Cell Not Reportable 11/11/21 18:59 Ethyl Alcohol mg/dL < 10.0 mg/dl (<10.0) 11/11/21 17:38 SARS-CoV-2, RNA, NAAT NEGATIVE (NEGATIVE) 11/11/21 Unknown Impressions Cervical Spine CT 11/11/21 18:29 CT cervical spine wo con CLINICAL HISTORY: seizure TECHNIQUE: Multidetector row helical CT of the cervical spine was performed without administration of intravenous contrast. Coronal and sagittal reformations were obtained. Automated dose lowering techniques and/or adjustment according to patient size were utilized for this exam. Comparison: None available at the time of this dictation. FINDINGS: No acute fractures or subluxations are identified. The vertebral body heights and disk spaces are well maintained. The alignment is normal. Soft tissues are unremarkable. IMPRESSION: No evidence of acute bony injury. ACT 112: Negative or not required by law. Electronically signed by: Arie Dey M.D. 11/11/2021 7:[address] 11/11/21 18:29 CT head/brain wo con CLINICAL HISTORY: seizure Technique: Contiguous axial CT images of the head were acquired from the base of the skull to the vertex without intravenous contrast administration. Images were viewed in brain, subdural and bone windows. Automated dose lowering techniques and/or adjustment according to patient size were utilized for this exam. Comparison: Comparison is made to CT head 01/13/2021 Findings: Areas of decreased attenuation are present in the periventricular and subcortical white matter bilaterally consistent with small vessel ischemic disease. Generalized cerebral atrophy with commensurate enlargement of the ventricles, sulci, and cisterns is also present. There is no acute intracranial hemorrhage or evidence of acute territorial infarction. No shift of the midline structures, mass effect, or extra-axial abnormalities are shown. Atherosclerotic calcifications are present in the intracranial segments of the internal carotid arteries. Imaged portions of the paranasal sinuses and mastoid air cells are clear. The orbits appear normal. There are no acute fractures of the calvaria or scalp swelling. Impression: No acute intracranial hemorrhage, no evidence of acute territorial infarction or other acute intracranial disease process. ACT 112: Negative or not required by law. Electronically signed by: Arie Dey M.D. 11/11/2021 7:36 PM Code Status & VTE Plan Code Status Full code VTE Prophylaxis Plan VTE Prophylaxis will be ordered: Yes PG Care Time/CCT Total # of Minutes Spent Total Time Spent with Patient: Total time spent is greater than 50% in coordination of care (as documented) at patient's floor/unit and/or counseling patient: Coding Level of Care Code 15302 Initial Inpt Care Lvl 3 Diagnoses Alcohol withdrawal F10.231 Complication of substance-induced condition: with delirium Alcoholism F10.20 Essential hypertension I10 Alcohol withdrawal seizure F10.239; R56.9 Thrombocytopenia D69.6 Hypokalemia E87.6 Alcoholic liver disease K70.9 (1) Alcohol withdrawal Complication of substance-induced condition: with delirium Qualified Code(s): F10.231 - Alcohol dependence with withdrawal delirium
[2021-11-11] MEDS ORDERED: ONDANSETRON INJ 2 MG/ML 2 ML VIAL IV PRN (22:44)
[2021-11-11] MEDS: METOPROLOL TARTRATE 1 MG/ML VIAL IV PRN (23:34)
[2021-11-12] MEDS: NSS + 20MEQ KCL 20 MEQ/1,000 ML BAG IV SCH ×3 (00:17→19:30)
[2021-11-12] MEDS: LORazepam 2 MG in SYRINGE 1 ML IV PRN ×2 (01:12→09:08)
[2021-11-12] MEDS: GABAPENTIN 600 MG TAB PO SCH ×3 (05:18→19:30)
--- NOTE | 2021-11-12 07:29 | Electrocardiogram Report ---
Test Reason : Blood Pressure : / mmHG Vent. Rate : 089 BPM Atrial Rate : 089 BPM P-R Int : 142 ms QRS Dur : 094 ms QT Int : 414 ms P-R-T Axes : 061 019 026 degrees QTc Int : 503 ms Normal sinus rhythm Possible Left atrial enlargement Prolonged QT Abnormal ECG When compared with ECG of 13-JAN-2021 12:48, T wave amplitude has increased in Lateral leads Confirmed by Corey Gardner ([id number]) on 11/12/2021 7:29:04 AM Referred By: REFERRED SELF Confirmed By:Neal Gardner
[2021-11-12 07:35] LABS: Hematocrit (blood only) 36.5 % (40.1-51.0); Hemoglobin 12.8 g/dl (14.0-18.0); Mean Corpuscular Hemoglobin 38.4 pg (25.0-34.0); Mean Corpuscular Hgb Conc 35.1 g/dL (32.0-36.0); Mean Corpuscular Volume 109.6 fL (80.0-100.0); Mean Platelet Volume 11.3 fL (9.4-12.4); Platelet Count 46 K/uL (130-400); RDW Coefficient of Variation 13.5 % (11.5-14.5); RDW Standard Deviation 54.7 fL (36.4-46.3); Red Blood Count 3.33 M/uL (4.63-6.08); White Blood Count 4.86 K/ul (4.8-10.8)
[2021-11-12 07:52] LABS: Basophils # (auto) 0.02 K/uL (0-0.2); Basophils % (auto) 0.4 %; Eosinophils # (auto) 0.01 K/uL (0-0.50); Eosinophils % (auto) 0.2 %; Immature Granulocytes # (auto) 0.01 K/uL (0.00-0.02); Immature Granulocytes % (auto) 0.2 %; Lymphocytes # (auto) 0.88 K/uL (1.2-3.4); Lymphocytes % (auto) 18.1 %; Monocytes # (auto) 0.57 K/uL (0.24-0.82); Monocytes % (auto) 11.7 %; Neutrophils # (auto) 3.37 K/uL (1.4-6.5); Neutrophils % (auto) 69.4 %
[2021-11-12 07:55] LABS: Albumin Globulin Ratio 1.1 (0.9-2); BUN Creatinine Ratio 11.9 (10-20); Bilirubin,Total 2.8 mg/dl (0.2-1.0); Calcium 7.9 mg/dl (8.5-10.1); Creatinine Clr Calc Pharmacy 170.2 ml/min; Est GFR (African American) 142.7 ml/min; Est GFR (Non-African American) 123.1 ml/min; Globulin 3.5 gm/dl (2.5-4.0); Magnesium 1.9 mg/dl (1.7-2.4); Potassium 3.3 mmol/L (3.5-5.1); Total Protein 7.5 gm/dl (6.0-8.3)
[2021-11-12 07:57] LABS: INR 1.1 (0.9-1.1); Partial Thromboplastin Time 26.8 Seconds (21.0-31.0)
[2021-11-12] MEDS ORDERED: FOLIC ACID 1 MG TAB PO SCH (09:00)
[2021-11-12] MEDS: cloNIDine HCL 0.1 MG TAB PO SCH ×2 (09:04→19:31)
[2021-11-12] MEDS: POTASSIUM CHLORIDE CRTAB 20 MEQ TABCR PO SCH ×3 (09:05→19:30)
[2021-11-12] MEDS: lamoTRIgine 100 MG TAB PO SCH ×2 (09:05→19:31)
[2021-11-12] MEDS: THIAMINE HCL 100 MG TAB PO SCH (09:06)
[2021-11-12] MEDS: lisinopril 20 MG TAB PO SCH (09:06)
[2021-11-12] MEDS: FOLIC ACID 1 MG TAB PO SCH (09:06)
[2021-11-12] MEDS: METOPROLOL TARTRATE 1 MG/ML VIAL IV PRN (12:50)
--- NOTE | 2021-11-12 15:07 | Hospitalist Progress Note ---
Date of Service November 12, 2021 Assessment & Plan (1) Alcohol withdrawal: Plan: Moderately severe alcohol withdrawal/alcoholism/history alcohol withdrawal seizures/alcoholic liver disease- Elevated LFTs, trend Continue KELL S protocol, gabapentin protocol Received banana bag Continue IV FM Continue thiamine, folic acid supplementation Zofran as needed - Continue lamotrigine 150 mg p.o. twice daily (2) Alcoholism: Plan: Cessation counseling (3) Essential hypertension: Plan: Continue lisinopril 20 mg daily and clonidine 0.2 mg p.o. twice daily Some tachycardia/hypertension improved with KELL scoring. Can consider amlodipine for breakthrough hypertension if withdrawal symptoms are otherwise well controlled (4) Alcohol withdrawal seizure: Plan: See above (5) Thrombocytopenia: Plan: Monitor with serial labs (6) Hypokalemia: Plan: Potassium 3.1 upon admission, repleted, 3.3 Additional repletion ordered Magnesium normal (7) Alcoholic liver disease: Plan: Enzymes worse than usual follow serially Admission and Anticipated Discharge Date Admission Date: November 11, 2021 Subjective Seen at bedside. Reports he feels okay, had a dose of Ativan and subsequently does not feel that shaky. Denies chest pain, chest pressure, lightheadedness not dizziness. Denies hallucinations. Reports he has not had a seizure in many years, but has had withdrawal shakes every time he stops drinking. Last drink 2 days ago. Denies palpitations Review of Systems Review of Systems: All systems reviewed & are unremarkable except as noted in Subjective Physical Exam Physical Exam: General: A&Ox3. NAD. Peers fatigued, nontoxic. Slightly tremulous on exam HEENT: Atraumatic, normocephalic. Hearing grossly intact Pulm: CTAB A&P. -wheezes, -rales, -rhonchi. Symmetrical chest rise. No increase in work of breathing. No respiratory distress. Cardiac: RRR, -mrg. Radial pulses intact and symmetrical. Abdominal: Nontender, nondistended, soft. BS present. Extremities: Warm and dry. Sensation intact in hands and feet. Results & Data Results & Data ([facility]) Vital Signs (Past 12 Hours) Vital Signs Temp Pulse Pulse Resp BP BP Pulse Ox 11/12/21 12:50 92 H 181/118 H 11/12/21 11:32 36.9 C 84 20 150/101 H 94 11/12/21 10:23 81 09/05/22 10:23 11/12/21 06:42 36.6 C 80 22 145/104 H 94 11/12/21 03:15 36.9 C 80 22 166/105 H 93 O2 Del Method 11/12/21 12:50 11/12/21 11:32 Room Air 11/12/21 10:23 11/12/21 10:23 Room Air 11/12/21 06:42 Room Air 11/12/21 03:15 Room Air PG Care Time/CCT Total # of Minutes Spent Total Time Spent with Patient: Total time spent is greater than 50% in coordination of care (as documented) at patient's floor/unit and/or counseling patient: Coding Level of Care Code 27757 Subseq Hosp Care Lvl 2 Diagnoses Alcohol withdrawal F10.231 Complication of substance-induced condition: with delirium Alcoholism F10.20 Essential hypertension I10 Alcohol withdrawal seizure F10.239; R56.9 Thrombocytopenia D69.6 Hypokalemia E87.6 Alcoholic liver disease K70.9 (1) Alcohol withdrawal Complication of substance-induced condition: with delirium Qualified Code(s): F10.231 - Alcohol dependence with withdrawal delirium
[2021-11-13] MEDS: NSS + 20MEQ KCL 20 MEQ/1,000 ML BAG IV SCH ×3 (03:32→16:08)
[2021-11-13] MEDS: GABAPENTIN 600 MG TAB PO SCH ×2 (05:46→14:15)
[2021-11-13 06:36] LABS: INR 1.1 (0.9-1.1); Prothrombin Time 11.4 Seconds (9.0-12.0)
[2021-11-13 06:54] LABS: Albumin Globulin Ratio 1.1 (0.9-2); Albumin Level 3.9 gm/dl (3.4-5.0); BUN Creatinine Ratio 11.8 (10-20); Calcium 8.6 mg/dl (8.5-10.1); Creatinine Clr Calc Pharmacy 147.6 ml/min; Est GFR (African American) 134.6 ml/min; Est GFR (Non-African American) 116.2 ml/min; Globulin 3.7 gm/dl (2.5-4.0); Magnesium 1.8 mg/dl (1.7-2.4); Potassium 3.3 mmol/L (3.5-5.1); Total Protein 7.6 gm/dl (6.0-8.3)
[2021-11-13 07:11] LABS: Hematocrit (blood only) 37.9 % (40.1-51.0); Hemoglobin 13.2 g/dl (14.0-18.0); Mean Corpuscular Hemoglobin 37.9 pg (25.0-34.0); Mean Corpuscular Hgb Conc 34.8 g/dL (32.0-36.0); Mean Corpuscular Volume 108.9 fL (80.0-100.0); Mean Platelet Volume 10.7 fL (9.4-12.4); Platelet Count 55 K/uL (130-400); RDW Coefficient of Variation 12.8 % (11.5-14.5); RDW Standard Deviation 51.4 fL (36.4-46.3); Red Blood Count 3.48 M/uL (4.63-6.08); White Blood Count 3.71 K/ul (4.8-10.8)
[2021-11-13 07:35] LABS: Basophils # (auto) 0.03 K/uL (0-0.2); Basophils % (auto) 0.8 %; Eosinophils # (auto) 0.03 K/uL (0-0.50); Eosinophils % (auto) 0.8 %; Immature Granulocytes # (auto) 0.01 K/uL (0.00-0.02); Immature Granulocytes % (auto) 0.3 %; Lymphocytes # (auto) 1.24 K/uL (1.2-3.4); Lymphocytes % (auto) 33.4 %; Monocytes # (auto) 0.47 K/uL (0.24-0.82); Monocytes % (auto) 12.7 %; Neutrophils # (auto) 1.93 K/uL (1.4-6.5)
[2021-11-13] MEDS: cloNIDine HCL 0.1 MG TAB PO SCH (08:10)
[2021-11-13] MEDS: lisinopril 20 MG TAB PO SCH (08:10)
[2021-11-13] MEDS: FOLIC ACID 1 MG TAB PO SCH (08:11)
[2021-11-13] MEDS: lamoTRIgine 100 MG TAB PO SCH ×2 (08:11→20:35)
[2021-11-13] MEDS: POTASSIUM CHLORIDE CRTAB 20 MEQ TABCR PO SCH ×3 (08:11→20:36)
[2021-11-13] MEDS: THIAMINE HCL 100 MG TAB PO SCH (08:11)
--- NOTE | 2021-11-13 09:51 | Hospitalist Progress Note ---
Date of Service November 13, 2021 Assessment & Plan (1) Alcohol withdrawal: Plan: Moderately severe alcohol withdrawal/alcoholism/history alcohol withdrawal seizures/alcoholic liver disease- Elevated LFTs, trend Continue KELL S protocol, gabapentin protocol Received banana bag P.o. improving, switch IV FM to orals Continue thiamine, folic acid supplementation Zofran as needed - Continue lamotrigine 150 mg p.o. twice daily (2) Alcoholism: Plan: Cessation counseling (3) Essential hypertension: Plan: Continue lisinopril 20 mg daily Given rebound hypertension appreciated before patient takes clonidine we will switch half of his clonidine patch to patch and decrease his twice daily dosing to 0.1 mg to try to minimize rebound. Ideally would be on patch, but Some tachycardia/hypertension improved with KELL scoring. Can consider amlodipine for breakthrough hypertension if withdrawal symptoms are otherwise well controlled (4) Alcohol withdrawal seizure: Plan: See above (5) Thrombocytopenia: Plan: Monitor with serial labs (6) Hypokalemia: Plan: Again low a.m. / Additional repletion ordered Magnesium normal (7) Alcoholic liver disease: Plan: Enzymes worse than usual follow serially Admission and Anticipated Discharge Date Admission Date: November 11, 2021 Subjective Seen at the bedside. Remains tremulous, although feels slightly improved from yesterday. Elevated blood pressure this morning prior to taking clonidine. Patient reports he is on clonidine twice daily. No fever, chills, sweats overnight. No syncope/presyncope, chest pain, chest pressure, shortness of breath. No hallucinations. Endorses he does feel shaky and like he is withdrawing. No additional questions at bedside. Discussed rebound hypertension with clonidine, will trial 0.2 mg patch and decrease to twice daily dosing to .1 to attempt to minimize rebound Review of Systems Review of Systems: All systems reviewed & are unremarkable except as noted in Subjective Physical Exam Physical Exam: General: A&Ox3. NAD. Peers fatigued, nontoxic. Slightly tremulous on exam, skin is warm and slightly moist HEENT: Atraumatic, normocephalic. Hearing grossly intact Pulm: CTAB A&P. -wheezes, -rales, -rhonchi. Symmetrical chest rise. No increase in work of breathing. No respiratory distress. Cardiac: RRR, -mrg. Radial pulses intact and symmetrical. Abdominal: Nontender, nondistended, soft. BS present. Extremities: Sensation intact in hands and feet. Results & Data Results & Data ([facility]) Vital Signs (Past 12 Hours) Vital Signs Temp Pulse Pulse Resp BP Pulse Ox O2 Del Method 11/13/21 07:51 36.9 C 100 H 24 192/122 H 94 Room Air 11/13/21 03:31 37.1 C 83 20 151/105 H 95 Room Air 11/12/21 23:55 36.9 C 74 20 160/105 H 94 Room Air 11/12/21 22:55 76 11/12/21 22:38 37.1 C 73 22 145/102 H 92 Room Air PG Care Time/CCT Total # of Minutes Spent Total Time Spent with Patient: Total time spent is greater than 50% in coordination of care (as documented) at patient's floor/unit and/or counseling patient: Coding Level of Care Code 87991 Subseq Hosp Care Lvl 2 Diagnoses Alcohol withdrawal F10.231 Complication of substance-induced condition: with delirium Alcoholism F10.20 Essential hypertension I10 Alcohol withdrawal seizure F10.239; R56.9 Thrombocytopenia D69.6 Hypokalemia E87.6 Alcoholic liver disease K70.9 (1) Alcohol withdrawal Complication of substance-induced condition: with delirium Qualified Code(s): F10.231 - Alcohol dependence with withdrawal delirium
[2021-11-13] MEDS: CHECK CLONIDINE PATCH PLACEMENT SCH (16:07)
[2021-11-13] MEDS: METOPROLOL TARTRATE 1 MG/ML VIAL IV PRN (20:32)
[2021-11-13] MEDS ORDERED: cloNIDine HCL 0.1 MG TAB PO SCH (21:00)
[2021-11-14] MEDS: METOPROLOL TARTRATE 1 MG/ML VIAL IV PRN ×2 (00:01→08:14)
[2021-11-14] MEDS: GABAPENTIN 600 MG TAB PO SCH ×2 (00:01→12:05)
[2021-11-14] MEDS: CHECK CLONIDINE PATCH PLACEMENT SCH ×2 (00:01→08:17)
[2021-11-14 07:24] LABS: Albumin Level 3.7 gm/dl (3.4-5.0); BUN Creatinine Ratio 11.9 (10-20); Bilirubin,Total 2.7 mg/dl (0.2-1.0); Calcium 8.9 mg/dl (8.5-10.1); Creatinine Clr Calc Pharmacy 149.9 ml/min; Est GFR (African American) 135.4 ml/min; Est GFR (Non-African American) 116.9 ml/min; Globulin 3.7 gm/dl (2.5-4.0); Magnesium 1.8 mg/dl (1.7-2.4); Potassium 3.3 mmol/L (3.5-5.1); Total Protein 7.4 gm/dl (6.0-8.3)
[2021-11-14 07:33] LABS: Basophils # (auto) 0.02 K/uL (0-0.2); Basophils % (auto) 0.6 %; Eosinophils # (auto) 0.04 K/uL (0-0.50); Eosinophils % (auto) 1.3 %; Hematocrit (blood only) 37.3 % (40.1-51.0); Hemoglobin 12.9 g/dl (14.0-18.0); Immature Granulocytes # (auto) 0.02 K/uL (0.00-0.02); Immature Granulocytes % (auto) 0.6 %; Lymphocytes % (auto) 32.2 %; Mean Corpuscular Hemoglobin 37.9 pg (25.0-34.0); Mean Corpuscular Hgb Conc 34.6 g/dL (32.0-36.0); Mean Corpuscular Volume 109.7 fL (80.0-100.0); Mean Platelet Volume 11.4 fL (9.4-12.4); Monocytes % (auto) 12.9 %; Neutrophils # (auto) 1.63 K/uL (1.4-6.5); Neutrophils % (auto) 52.4 %; Platelet Count 62 K/uL (130-400); RDW Coefficient of Variation 12.5 % (11.5-14.5); RDW Standard Deviation 50.8 fL (36.4-46.3); White Blood Count 3.11 K/ul (4.8-10.8)
[2021-11-14 07:38] LABS: INR 1.1 (0.9-1.1); Partial Thromboplastin Time 26.8 Seconds (21.0-31.0); Prothrombin Time 11.7 Seconds (9.0-12.0)
--- NOTE | 2021-11-14 07:43 | Hospitalist Progress Note ---
Date of Service November 14, 2021 Assessment & Plan (1) Alcohol withdrawal: Plan: Moderately severe alcohol withdrawal/alcoholism/history alcohol withdrawal seizures/alcoholic liver disease- Continue KELL S protocol, gabapentin protocol Received banana bag Continue thiamine, folic acid supplementation Zofran as needed - Continue lamotrigine 150 mg p.o. twice daily (2) Alcoholism: Plan: Cessation counseling (3) Essential hypertension: Plan: Continue lisinopril 20 mg daily Some tachycardia/hypertension improved with KELL scoring. Can consider amlodipine for breakthrough hypertension if withdrawal symptoms are otherwise well controlled (4) Alcohol withdrawal seizure: Plan: See above (5) Thrombocytopenia: Plan: Monitor with serial labs (6) Hypokalemia: Plan: - replete (7) Alcoholic liver disease: Plan: Enzymes worse than usual follow serially Admission and Anticipated Discharge Date Admission Date: November 11, 2021 Results & Data Results & Data ([facility]) Vital Signs (Past 12 Hours) Vital Signs Temp Pulse Pulse Resp BP BP BP 11/14/21 07:39 99.0 F 79 19 185/119 H 11/14/21 03:00 98.2 F 71 20 163/101 H 11/13/21 22:14 67 11/14/21 00:01 75 174/106 H 11/13/21 23:00 99.0 F 75 18 174/106 H 11/13/21 20:32 84 178/114 H Pulse Ox O2 Del Method 11/14/21 07:39 95 Room Air 11/14/21 03:00 98 Room Air 11/13/21 22:14 11/14/21 00:01 11/13/21 23:00 95 Room Air 11/13/21 20:32 PG Care Time/CCT Total # of Minutes Spent Total Time Spent with Patient: Total time spent is greater than 50% in coordination of care (as documented) at patient's floor/unit and/or counseling patient: Coding Diagnoses Alcohol withdrawal F10.231 Complication of substance-induced condition: with delirium Alcoholism F10.20 Essential hypertension I10 Alcohol withdrawal seizure F10.239; R56.9 Thrombocytopenia D69.6 Hypokalemia E87.6 Alcoholic liver disease K70.9 (1) Alcohol withdrawal Complication of substance-induced condition: with delirium Qualified Code(s): F10.231 - Alcohol dependence with withdrawal delirium
[2021-11-14] MEDS ORDERED: MAGNESIUM SULFATE / D5W 1 GM/100 ML BAG IV ONE (08:00)
[2021-11-14] MEDS: lisinopril 20 MG TAB PO SCH (08:15)
[2021-11-14] MEDS: lamoTRIgine 100 MG TAB PO SCH (08:16)
[2021-11-14] MEDS: FOLIC ACID 1 MG TAB PO SCH (08:16)
[2021-11-14] MEDS: THIAMINE HCL 100 MG TAB PO SCH (08:16)
[2021-11-14] MEDS: POTASSIUM CHLORIDE CRTAB 20 MEQ TABCR PO SCH (08:16)
[2021-11-14] MEDS ORDERED: POTASSIUM CHLORIDE CRTAB 20 MEQ TABCR PO SCH ×2 (09:00)
[2021-11-14] MEDS ORDERED: cloNIDine HCL 0.1 MG TAB PO SCH (09:00)
--- NOTE | 2021-11-14 19:31 | Discharge Summary ---
Date of Service November 14, 2021 Principal Diagnosis alcohol withdrawal Discharge Exam The patient appeared well nourished and normally developed. Vital signs as documented. Head exam is normocephalic atraumatic Neck is without JVD, thyromegaly, or carotid bruits. Lungs are clear to auscultation, no focal loss of breath sounds Cardiac exam, Rhythm is regular.. No murmurs, rubs or gallops. Abdominal exam reveals normal bowel sounds, soft non tender, no masses Extremities are nonedematous and both pedal pulses are present Neurologic exam is alert and oriented, no focal loss of strength or sensation Skin is without bruises or rashes Psychologically is without concerns for anxiety or depression.. Discharge Data Allergies Allergy/AdvReac Type Severity Reaction Status Date / Time No Known Allergies Allergy Mild Verified 11/11/21 20:10 Consultations 11/11/21 21:19 ED Decision to Admit Stat Ordered Studies 11/11/21 18:29 CT cervical spine wo con Stat CT head/brain wo con Stat Hospital Course (1) Alcohol withdrawal: Moderately severe alcohol withdrawal/alcoholism/history alcohol withdrawal seizures/alcoholic liver disease- Continue , gabapentin tapering dose - Continue lamotrigine 150 mg p.o. twice daily (2) Alcoholism: Cessation counseling (3) Essential hypertension: Continue lisinopril 20 mg daily (4) Alcohol withdrawal seizure: See above (5) Thrombocytopenia: Monitor with serial labs (6) Hypokalemia: - replete (7) Alcoholic liver disease: Enzymes worse than usual follow serially Plan Did have discussion about alcohol and abstinence, did recommend AA, pt feels he is safe at home Total Time Total Time Spent Total Time Spent (In Minutes): It required greater than 30 minutes to prepare this patient for discharge Discharge Plan Discharge Items Patient Disposition: Home - Self-Care Reason For Visit: ALCOHOL WITHDRAWAL Discharge Diagnosis: alcohiol withdrawal Activity: Per Instructions section Activity Comment: Slowly increase activity Non-emergency contact: Primary Care Provider Call non-emergency contact if: your symptoms worsen Follow-up/Referrals: Luis Antonio Guevara [Primary Care Provider] - 11/22/21 11:00 am Diet: Regular Diet Comment: No alcohol of any kind not even one Addtl Attending Provider Instructions: strongly consider AA meetings or involve as many close family and friends to help you avoid drinking. Total abstinence is the only way for you not to relapse. Please schedule an appointment with your family doctor to discuss naloxone to help with your cravings, I will Rx a one week trial for you to take at home to avoid relapse Pending Studies at Discharge: No Stand-Alone Forms: My [facility], Smoking Cessation Medications and DC Order Prescriptions: New gabapentin 300 mg capsule 300 mg PO UD Qty: 3 0RF Rx Instructions: 2 pills at once on 11/15, one on 11/16 naltrexone 50 mg tablet 50 mg PO DAILY Qty: 7 0RF Continued lamotrigine [Lamictal] 150 mg tablet 150 mg PO BID potassium chloride 10 mEq tablet extended release 10 meq PO DAILY Qty: 30 0RF Rx Instructions: LAST REFILL 02/2021 clonidine HCl 0.1 mg tablet 0.2 mg PO BID lisinopril 20 mg tablet 20 mg PO DAILY folic acid 1 mg tablet 1 mg PO DAILY Discharge Orders: Discharge Order (Routine); Ordered 11/14/21 Ordered By: Ramon Jama Admission Data Admit Date/Time: 11/11/21 21:51 Attending Provider: Ramon Jama Admit Provider: Mike Lombardo Primary Care Provider: Luis Antonio Guevara Other Providers: Mike Lombardo Other Interventions: Discharge Summary Assessment (RN) Last Done: 11/14/21 13:39 Coding Level of Care Code D/C DAY MANAGEMENT >30 MINS Diagnoses Alcohol withdrawal F10.231 Complication of substance-induced condition: with delirium Alcoholism F10.20 Essential hypertension I10 Alcohol withdrawal seizure F10.239; R56.9 Thrombocytopenia D69.6 Hypokalemia E87.6 Alcoholic liver disease K70.9
[2021-11-15] MEDS ORDERED: GABAPENTIN 600 MG TAB PO SCH (12:00)
== END 2021-11-14 13:55 | disposition home or self-care (01) | DRG 897 ==
LOC: ED 17:09 → SUATTDRO 21:51 → 2E 21:51

== ENCOUNTER 2021-11-16 03:19 | Observation (INO) ==
--- NOTE | 2021-11-16 04:26 | Emergency Department Note ---
Impression & Plan Delirium tremens [facility] Provider Note NAME: WILEY CHRISTIANSON AGE: 46 SEX: M ARRIVES VIA: Walk-In INFORMANT: Patient and his father ED PROVIDER(S): Angélica Atkins DO CHIEF COMPLAINT: Seizures PLAN: Disposition: Admit to the [facility] Condition: Guarded MEDICAL DECISION MAKING: This is a 46-year-old male patient who presents to the emergency department with his father after suffering multiple seizures this evening. The patient has a history of epilepsy and takes Lamictal. However, the patient has had 3 separate episodes of seizures this evening which were different than his usual epileptic seizures according to the patient's father. The patient was just discharged from the hospital after a period of alcohol withdrawal. The patient has been sober since discharge. While here in the emergency department, the patient had another episode of seizure consistent with DTs. The [facility] and the patient will be evaluated for admission to the hospital. Triage Nursing notes reviewed and agree with them. Additional history obtained from patient's father is at the bedside Prior medical records reviewed from his recent admission to the hospital with alcohol withdrawal Vital Signs: reviewed and remarkable for hypertension and tachycardia Differential diagnosis: Delirium tremens, epileptic seizures, alcohol withdrawal seizure ER treatment provided: Seizure precautions IV normal saline Ativan Diagnostics interpreted by me: ECG: None Cardiac Monitoring: Sinus tachycardia at 103 Laboratory studies: See below HPI: 46/M arrives for evaluation of seizure. Patient presents emergency department with his father after having 3 episodes of seizures at home. The father explains that the patient had seizure activity around 5 PM this evening that lasted for approximately 5 minutes. He had another episode around 2 AM where the father heard a thump and felt that the patient had fallen out of bed onto the floor and was having seizure activity at that time which lasted between 5 and 10 minutes. Patient had a third event in the car ride over to the hospital the lasted approximately 10 minutes. The father explains that the patient has no cognitive awareness of the event while they are occurring but does not appear to be postictal afterwards. The patient does have a history of epilepsy but these seizures seem to be different. ROS: See above HPI for pertinent positives & negatives. A total of 10 systems reviewed and were otherwise negative. PAST MEDICAL HISTORY:Epilepsy; alcohol abuse; see below PAST SURGICAL HISTORY:See Below FAMILY HISTORY:See Below SOCIAL HISTORY:See Below HOME MEDICATIONS:See list ALLERGIES:None VITALS:See Below PHYSICAL EXAMINATION: HEENT: Head - normocephalic and atraumatic. Pupils are equal, round, and reactive to light. Extraocular eye muscles are intact and sclera are anicteric. Ears - bilaterally patent canals with noninjected tympanic membranes and no evidence of hemotympanum. Nose - moist nasal mucosa without discharge. Mouth - moist buccal mucosa. Oropharynx is nonerythematous and there is no tonsillar e xudate or edema noted. Neck: Supple; no adenopathy or thyromegaly Heart: Regular rate and rhythm. There is a normal S1 and S2 with no murmurs, clicks, or gallops appreciated. Lungs: Clear to auscultation bilaterally with no wheezes, rales, or rhonchi. Abdomen: Soft, completely nontender, nondistended, with good bowel sounds. There are no palpable pulsatile masses or hepatosplenomegaly. There is no guarding, rigidity, or rebound noted. Extremities: No evidence of cyanosis, clubbing, or edema. There are easily palpable peripheral pulses. Neuro:The patient is awake and alert, oriented to day, time, and place. Muscle strength is 5/5 in all 4 extremities. The patient has equal transportation assistant strength and equal pedal push and pull. There are no cerebellar signs. Skin: Diaphoretic ED COURSE: Times/Reassessments: 355: Patient was evaluated in room C10. A complete history and physical was performed. Seizure precautions were taken. An IV lock was initiated and labs were drawn as above. I was called to the room as the patient felt as if he might be starting to have a seizure. He seemed to be having a tremor in his head and neck but was still alert and able to communicate. This seemed to pass. Later on in his stay, nurses called me to the room as the patient was having what appeared to be a seizure. The patient's heart rate jumped from the 80s to 158. He was significantly diaphoretic and was seizing. He was given 2 mg of IV Ativan. He was bolused with 500 mL of normal saline solution. Angélica Atkins DO Past Med/Surg History Medical History Alcoholism Delirium tremens Essential hypertension Seizures (~11/16/21) Surgical History No pertinent past surgical history Family History Father Skin cancer of face Denies family history of Alcoholism Seizure disorder Social History Smoking Status: Current every day smoker Cigarettes Per Day: 10; Hx Alcohol Use: Yes Alcohol type: hard liquor Alcohol type Comment: DAILY consumption, mixture of bottle of wine, bottle of liquor, and/or beer Hx Substance Use: No Preferred Language: Sinhala Communication Ability: Effective Ship'S Officer Required: No Beliefs That Will Affect Care: None marital status: Single marital status details: x 2 Current Living Situation: Alone Current Living Situation Comment: lives w/ father in [place] current occupational status: 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[employer] How many Children do You have: 0 Feels Safe at Home: Yes Safety Concerns: Feels Safe At This Time Assistive Devices: None Allergies Allergies Allergy/AdvReac Type Severity Reaction Status Date / Time No Known Allergies Allergy Mild Verified 11/11/21 20:10 Home Meds Home Medications Medication Instructions Recorded Confirmed lamotrigine 150 mg tablet 150 mg PO BID 01/13/21 11/11/21 (Lamictal) clonidine HCl 0.1 mg tablet 0.2 mg PO BID 11/11/21 11/11/21 folic acid 1 mg tablet 1 mg PO DAILY 11/11/21 11/11/21 lisinopril 20 mg tablet 20 mg PO DAILY 11/11/21 11/11/21 Previous Rx's Medication Instructions Recorded potassium chloride 10 mEq 10 meq PO DAILY #30 tabs 01/19/21 tablet,extended release gabapentin 300 mg capsule 300 mg PO UD #3 caps 11/14/21 naltrexone 50 mg tablet 50 mg PO DAILY #7 tabs 11/14/21 Results & Data (ED) Vital Signs Vital Signs - 24 hr 11/16/21 03:20 11/16/21 03:45 11/16/21 03:45 Temperature 36.1 C L Temperature Source Temporal Artery Scan Pulse Rate 120 H Pulse Rate [Apical] 103 H Respiratory Rate 20 24 Respiratory Effort / Characteristics Non-Labored Spontaneous Respiratory Depth Normal Blood Pressure 161/102 H Blood Pressure [Left Arm] 158/102 H Blood Pressure Mean 121 Blood Pressure Mean [Left Arm] 120 Pulse Oximetry 97 94 Oxygen Delivery Method Room Air Room Air Sepsis Recent Fever Within 48 Hours No Sepsis New/Unexplained Change in Mental Status N/A Sepsis Action Taken by Nursing No Action Required Pulse Oximetry Post Tiitration 94 Laboratory Data Result diagrams: 11/17/21 04:13 11/17/21 04:13 Lab Results 11/16/21 11/16/21 11/16/21 Range/Units 03:44 03:44 03:44 WBC 5.22 (4.8-10.8) K/ul RBC 3.57 L (4.63-6.08) M/uL Hgb 13.7 L (14.0-18.0) g/dl Hct 39.6 L (40.1-51.0) % MCV 110.9 H (80.0-100.0) fL MCH 38.4 H (25.0-34.0) pg MCHC 34.6 (32.0-36.0) g/dL RDW Std Deviation 51.7 H (36.4-46.3) fL RDW Coeff of Amena 12.6 (11.5-14.5) % Plt Count 124 L D (130-400) K/uL MPV 11.2 (9.4-12.4) fL Immature Gran % (Auto) 1.0 % Neut % (Auto) 76.9 % Lymph % (Auto) 9.2 % [place] % (Auto) 12.1 % Eos % (Auto) 0.4 % Baso % (Auto) 0.4 % Neut # (Auto) 4.02 (1.4-6.5) K/uL Lymph # (Auto) 0.48 L (1.2-3.4) K/uL [place] # (Auto) 0.63 (0.24-0.82) K/uL Eos # (Auto) 0.02 (0-0.50) K/uL Baso # (Auto) 0.02 (0-0.2) K/uL Immature Gran # (Auto) 0.05 H (0.00-0.02) K/uL Giant Platelets 1+ Macrocytosis Present Sodium 132 L (136-145) mmol/L Potassium 3.4 L (3.5-5.1) mmol/L Chloride 100 (98-107) mmol/L Carbon Dioxide 17 L (21-32) mmol/L Anion Gap 15 H (3-11) BUN 8 (6-23) mg/dl Creatinine 0.80 (0.6-1.4) mg/dl Est Cr Clr Drug Dosing Not Reportable Est GFR ( Amer) 125.9 ml/min Est GFR (Non-Af Amer) 108.6 ml/min BUN/Creatinine Ratio 10.0 (10-20) Glucose 133 H (70-99(Fasting)) mg/dl Calcium 9.6 (8.5-10.1) mg/dl Total Bilirubin 2.3 H (0.2-1.0) mg/dl AST 109 H (13-39) U/L ALT 87 H (7-52) U/L Alkaline Phosphatase 182 H (34-104) U/L Total Protein 8.7 H (6.0-8.3) gm/dl Albumin 4.4 (3.4-5.0) gm/dl Globulin 4.3 H (2.5-4.0) gm/dl Albumin/Globulin Ratio 1.0 (0.9-2) Urine Opiates Screen Neg (Neg) Ur Methadone, Qual Neg (Neg) Urine Barbiturates Neg (Neg) Ur Phencyclidine (PCP) Neg (Neg) U Amphetamin/Meth Scrn Neg (Neg) MDMA (Ecstasy) Screen Neg (Neg) U Benzodiazepines Scrn Neg (Neg) Ur Cocaine Metabolite Neg (Neg) U Marijuana (THC) Screen Neg (Neg) SARS-CoV-2, RNA, NAAT (NEGATIVE) 11/16/21 Range/Units 05:32 WBC (4.8-10.8) K/ul RBC (4.63-6.08) M/uL Hgb (14.0-18.0) g/dl Hct (40.1-51.0) % MCV (80.0-100.0) fL MCH (25.0-34.0) pg MCHC (32.0-36.0) g/dL RDW Std Deviation (36.4-46.3) fL RDW Coeff of Amena (11.5-14.5) % Plt Count (130-400) K/uL MPV (9.4-12.4) fL Immature Gran % (Auto) % Neut % (Auto) % Lymph % (Auto) % [place] % (Auto) % Eos % (Auto) % Baso % (Auto) % Neut # (Auto) (1.4-6.5) K/uL Lymph # (Auto) (1.2-3.4) K/uL [place] # (Auto) (0.24-0.82) K/uL Eos # (Auto) (0-0.50) K/uL Baso # (Auto) (0-0.2) K/uL Immature Gran # (Auto) (0.00-0.02) K/uL Giant Platelets Macrocytosis Sodium (136-145) mmol/L Potassium (3.5-5.1) mmol/L Chloride (98-107) mmol/L Carbon Dioxide (21-32) mmol/L Anion Gap (3-11) BUN (6-23) mg/dl Creatinine (0.6-1.4) mg/dl Est Cr Clr Drug Dosing Est GFR ( Amer) ml/min Est GFR (Non-Af Amer) ml/min BUN/Creatinine Ratio (10-20) Glucose (70-99(Fasting)) mg/dl Calcium (8.5-10.1) mg/dl Total Bilirubin (0.2-1.0) mg/dl AST (13-39) U/L ALT (7-52) U/L Alkaline Phosphatase (34-104) U/L Total Protein (6.0-8.3) gm/dl Albumin (3.4-5.0) gm/dl Globulin (2.5-4.0) gm/dl Albumin/Globulin Ratio (0.9-2) Urine Opiates Screen (Neg) Ur Methadone, Qual (Neg) Urine Barbiturates (Neg) Ur Phencyclidine (PCP) (Neg) U Amphetamin/Meth Scrn (Neg) MDMA (Ecstasy) Screen (Neg) U Benzodiazepines Scrn (Neg) Ur Cocaine Metabolite (Neg) U Marijuana (THC) Screen (Neg) SARS-CoV-2, RNA, NAAT NEGATIVE (NEGATIVE) Administered Medications Ascorbic Acid (Ascorbic Acid 500 Mg Tab) 1,000 mg PO QAM ROBIN Stop: 12/17/21 08:59 Last Admin: 11/17/21 08:25 Dose: 1,000 mg Documented By: SHANEL Chlordiazepoxide HCl (Chlordiazepoxide Hcl 25 Mg Cap) 25 mg PO Q6H ROBIN; Taper Stop: 11/18/21 09:29 Last Admin: 11/17/21 08:32 Dose: 25 mg Documented By: Admin: 11/17/21 03:35 Dose: 25 mg Documented By: Admin: 11/16/21 20:15 Dose: 25 mg Documented By: Admin: 11/16/21 15:16 Dose: 25 mg Documented By: Admin: 11/16/21 09:25 Dose: 25 mg Documented By: SHANEL Clonidine HCl (Clonidine Hcl 0.1 Mg Tab) 0.2 mg PO BID ROBIN Stop: 12/16/21 08:59 Last Admin: 11/17/21 08:32 Dose: 0.2 mg Documented By: Admin: 11/16/21 20:08 Dose: 0.2 mg Documented By: Admin: 11/16/21 09:24 Dose: 0.2 mg Documented By: SHANEL Enoxaparin Sodium (Enoxaparin Inj 30 Mg/0.3 Ml Syr) [facility] [place] Stop: 12/17/21 08:59 Last Admin: 11/17/21 08:27 Dose: 30 mg Documented By: SHANEL Ferrous Sulfate (Ferrous Sulfate 325 Mg Tab) 325 mg PO QAM ROBIN Stop: 12/17/21 08:59 Last Admin: 11/17/21 08:24 Dose: 325 mg Documented By: SHANEL Lorazepam 1 mg/ Syringe 1 mls @ 2 mls/min IV UD PRN; Protocol PRN Reason: EtOH Withdrawal AWSS Score 6,7 Stop: 12/16/21 08:39 Last Admin: 11/16/21 15:35 Dose: 2 mls/min Documented By: SHANEL Lorazepam 2 mg/ Syringe 2 mls @ 2 mls/min IV UD PRN; Protocol PRN Reason: EtOH Withdrawal AWSS Score 8,9 Stop: 12/16/21 08:39 Last Admin: 11/17/21 00:36 Dose: 2 mls/min Documented By: Admin: 11/16/21 22:36 Dose: 2 mls/min Documented By: Admin: 11/16/21 20:07 Dose: 2 mls/min Documented By: VICKI Folic Acid 1 mg/ Syringe 10 mls @ 5 mls/min IV QAM ROBIN Stop: 12/17/21 08:59 Last Admin: 11/17/21 08:35 Dose: 5 mls/min Documented By: SHANEL Lactated Ringer's (Lr) 1,000 mls @ 80 mls/hr IV .[id number] ROBIN Stop: 11/17/21 09:39 Last Admin: 11/16/21 20:15 Dose: 80 mls/hr Documented By: Infusion: 11/16/21 20:15 Dose: 80 mls/hr Documented By: Admin: 11/16/21 09:23 Dose: 80 mls/hr Documented By: SHANEL Magnesium Sulfate/Dextrose (Magnesium Sulfate / D5w) 1 gm in 100 mls @ 50 mls/hr IV Q2H ROBIN Stop: 11/17/21 10:44 Last Admin: 11/17/21 07:30 Dose: 50 mls/hr Documented By: SHANEL Lamotrigine (Lamotrigine 100 Mg Tab) 150 mg PO BID ROBIN Stop: 12/16/21 09:14 Last Admin: 11/17/21 08:25 Dose: 150 mg Documented By: Admin: 11/16/21 20:08 Dose: 150 mg Documented By: Admin: 11/16/21 10:07 Dose: 150 mg Documented By: SHANEL Lisinopril (Lisinopril 20 Mg Tab) 20 mg PO DAILY ROBIN Stop: 12/16/21 08:59 Last Admin: 11/17/21 08:24 Dose: 20 mg Documented By: Admin: 11/16/21 10:07 Dose: 20 mg Documented By: SHANEL Multivitamins (Multivitamin Tab) 1 tab PO QAM ROBIN Stop: 12/17/21 08:59 Last Admin: 11/17/21 08:25 Dose: 1 tab Documented By: SHANEL Thiamine HCl (Thiamine Hcl 100 Mg Tab) 100 mg PO QAM ROBIN Stop: 12/17/21 08:59 Last Admin: 11/17/21 08:25 Dose: 100 mg Documented By: SHANEL Discontinued Medications Sodium Chloride (Nss 1000ml) 500 mls @ 999 mls/hr IV .Q31M ONE Stop: 11/16/21 06:19 Last Infusion: 11/16/21 06:32 Dose: 0 mls/hr Documented By: Admin: 11/16/21 05:50 Dose: 999 mls/hr Documented By: CHELSEA Multivitamins 10 ml/ Thiamine HCl 100 mg/ Folic Acid 1 mg/Sodium Chloride 1,011.2 mls @ 500 mls/hr IV .Q2H2M ONE Stop: 11/16/21 11:16 Last Infusion: 11/16/21 13:26 Dose: 0 mls/hr Documented By: Admin: 11/16/21 10:47 Dose: 500 mls/hr Documented By: SHANEL Potassium Chloride (K Richard / Wtr) 10 meq in 100 mls @ 100 mls/hr IV Q1H [facility] Stop: 11/16/21 11:39 Last Infusion: 11/16/21 12:26 Dose: 0 mls/hr Documented By: Admin: 11/16/21 11:21 Dose: 100 mls/hr Documented By: Infusion: 11/16/21 11:21 Dose: 100 mls/hr Documented By: Admin: 11/16/21 10:21 Dose: 100 mls/hr Documented By: Infusion: 11/16/21 10:21 Dose: 100 mls/hr Documented By: Admin: 11/16/21 09:24 Dose: 100 mls/hr Documented By: SHANEL Potassium Chloride (K Richard / Wtr) 10 meq in 100 mls @ 100 mls/hr IV Q1H [facility] Stop: 11/17/21 07:59 Last Admin: 11/17/21 07:20 Dose: 100 mls/hr Documented By: Infusion: 11/17/21 07:16 Dose: 100 mls/hr Documented By: Admin: 11/17/21 06:16 Dose: 100 mls/hr Documented By: VICKI Lorazepam (Lorazepam 2 Mg/1 Ml Vial) Confirm Administered Dose 2 mg .ROUTE .STK- MED ONE Stop: 11/16/21 05:45 Last Admin: 11/16/21 05:48 Dose: 2 mg Documented By: CHELSEA Lorazepam (Lorazepam 2 Mg/1 Ml Vial) 2 mg IV NOW STA; Protocol Stop: 11/16/21 06:24 Last Admin: 11/16/21 06:31 Dose: 2 mg Documented By: CHELSEA Lorazepam (Lorazepam 2 Mg/1 Ml Vial) Confirm Administered Dose 2 mg .ROUTE .STK- MED ONE Stop: 11/16/21 06:31 Last Admin: 11/16/21 06:31 Dose: Not Given Documented By: CHELSEA Lorazepam (Lorazepam 2 Mg/1 Ml Vial) 2 mg IV NOW STA; Protocol Stop: 11/16/21 06:54 Last Admin: 11/16/21 07:20 Dose: 2 mg Documented By: HS Potassium Chloride (Potassium Chloride 20 Meq/15 Ml Udc) 40 meq PO NOW STA Stop: 11/17/21 06:04 Last Admin: 11/17/21 06:16 Dose: 40 meq Documented By: MEJ Discharge Plan Visit Data Chief Complaint: Detox Request Stated Complaint: ALCOHOL DETOXT ED Provider: Angélica Atkins Discharge Problem: Delirium tremens Patient Disposition: Admitted As Inpatient Discharge Instructions Interventions: ED Discharge Assessment Last Done: 11/16/21 08:05
[2021-11-16 04:48] LABS: Alanine Aminotransferase 87 U/L (7-52); Albumin Level 4.4 gm/dl (3.4-5.0); Alkaline Phosphatase 182 U/L (34-104); Anion Gap 15 (3-11); Aspartate Aminotransferase 109 U/L (13-39); Bilirubin,Total 2.3 mg/dl (0.2-1.0); Blood Urea Nitrogen 8 mg/dl (6-23); Calcium 9.6 mg/dl (8.5-10.1); Carbon Dioxide 17 mmol/L (21-32); Chloride 100 mmol/L (98-107); Est GFR (African American) 125.9 ml/min; Est GFR (Non-African American) 108.6 ml/min; Globulin 4.3 gm/dl (2.5-4.0); Glucose 133 mg/dl (70-99(Fasting)); Potassium 3.4 mmol/L (3.5-5.1); Sodium 132 mmol/L (136-145); Total Protein 8.7 gm/dl (6.0-8.3)
[2021-11-16 05:41] LABS: Hematocrit (blood only) 39.6 % (40.1-51.0); Hemoglobin 13.7 g/dl (14.0-18.0); Mean Corpuscular Hemoglobin 38.4 pg (25.0-34.0); Mean Corpuscular Hgb Conc 34.6 g/dL (32.0-36.0); Mean Corpuscular Volume 110.9 fL (80.0-100.0); Mean Platelet Volume 11.2 fL (9.4-12.4); Platelet Count 124 K/uL (130-400); RDW Coefficient of Variation 12.6 % (11.5-14.5); RDW Standard Deviation 51.7 fL (36.4-46.3); Red Blood Count 3.57 M/uL (4.63-6.08); White Blood Count 5.22 K/ul (4.8-10.8)
[2021-11-16] MEDS ORDERED: LORazepam 2 MG/2 ML SYR ONE ×2 (05:44→06:30)
[2021-11-16] MEDS ORDERED: SODIUM CHLORIDE 0.9% 1000ML 500 ML IV ONE (05:49)
[2021-11-16 06:05] LABS: Basophils # (auto) 0.02 K/uL (0-0.2); Basophils % (auto) 0.4 %; Eosinophils # (auto) 0.02 K/uL (0-0.50); Eosinophils % (auto) 0.4 %; Giant Platelets 1+; Immature Granulocytes # (auto) 0.05 K/uL (0.00-0.02); Lymphocytes # (auto) 0.48 K/uL (1.2-3.4); Lymphocytes % (auto) 9.2 %; Macrocytosis Present; Monocytes # (auto) 0.63 K/uL (0.24-0.82); Monocytes % (auto) 12.1 %; Neutrophils # (auto) 4.02 K/uL (1.4-6.5); Neutrophils % (auto) 76.9 %
[2021-11-16] MEDS ORDERED: LORazepam 2 MG/2 ML SYR IV STA ×2 (06:23→06:53)
--- NOTE | 2021-11-16 06:31 | History & Physical Report ---
Date of Service November 16, 2021 Assessment & Plan (1) Alcohol withdrawal seizure: Plan: 46yo male with longstanding history of EtOH abuse, prior withdrawal seizures and DTs presents with seizure x 3 prior to arrival as well as brief seizure witnessed in the ER. Believed to be secondary to EtOH withdrawal. Patient drinks appx 1/5 of liquor daily for "a long time". Last drink was almost one week ago. -Admit to PCU -AWSS with IV Ativan -Librium taper - hepatic dosing -Banana bag ordered -Check B12, Folate and Mg levels -Check Utox -Check EtoH level -Thiamine and Folate daily -Maintain seizure precautions, aspiration and fall precautions -Low threshold for MICU transfer (2) Seizure: Plan: Patient with history of epilepsy as well as EtOH withdrawal seizures. He reports his seizures tonight were more like his withdrawal seizure. -Management for alcohol withdrawal as above -Continue Lamictal 150mg po BID (3) Essential hypertension: Plan: Blood pressure elevated in setting of EtOH withdrawal -Continue Clonidine 0.2mg po BID - will help with withdrawal symptoms a well -Continue Lisinopril 20mg po daily (4) Alcoholic liver disease: Plan: Patient with evidence of liver dysfunction to include mild hyponatremia, thrombocytopenia as well a elevation of AST, ALT, AP and Tbili -Check INR -Repeat LFTs in AM F/E/N - LR at 80mL/hr x 2L, K-riders x 30meq, repeat chemistry in AM, check Mg and PO4 x 1 and replete as needed, NPO Ppx - low risk for DVT Code - Full Dispo - Admit to MICU for management of EtOH withdrawal seizure, possible need for IV Precedex History of Present Illness Chief Complaint: alcohol withdrawal seizure Primary Care Provider: Luis Antonio Guevara Freddie Ahuja is a 46yo male with history of alcoholism with complicated withdrawal, DTs and withdrawal seizure, epilepsy and HTN presenting with EtOH withdrawal seizure. Patient was admitted from 11/11/21/ - 11/14/21 with EtOH withdrawal. He was managed with Ativan and Gabapentin and discharged home in stable condition. He reports he has not had any alcohol for almost 1 week. This evening he had a tonic clonic seizure lasting several minutes last evening around 17:00. He had another seizure this AM at 02:00 and another short one on the car ride to the ER. Had a brief witnessed seizure in the ER which resolved with IV Ativan. Patient drinks appx 1/5 of liquor daily for "a long time". He states he has quit drinking in the past but does not recall when. He has never participated in a rehab program or AA. He denies tobacco or recreational drug use. Denies fever, chills, cough, SOB, CP, abdominal pain, nausea, vomiting, diarrhea or constipation. No additional complaints. ER Course: Ativan 2mg IV x 2 doses, NSS 500mL Allergies Allergy/AdvReac Type Severity Reaction Status Date / Time No Known Allergies Allergy Mild Verified 11/11/21 20:10 Home Medications Medication Instructions Recorded Confirmed Type lamotrigine 150 mg tablet 150 mg PO BID 01/13/21 11/11/21 History (Lamictal) potassium chloride 10 mEq 10 meq PO DAILY #30 tabs 01/19/21 11/11/21 Rx tablet,extended release clonidine HCl 0.1 mg tablet 0.2 mg PO BID 11/11/21 11/11/21 History folic acid 1 mg tablet 1 mg PO DAILY 11/11/21 11/11/21 History lisinopril 20 mg tablet 20 mg PO DAILY 11/11/21 11/11/21 History gabapentin 300 mg capsule 300 mg PO UD #3 caps 11/14/21 Rx naltrexone 50 mg tablet 50 mg PO DAILY #7 tabs 11/14/21 Rx Past Med/Surg History Medical History (Updated 11/16/21 @ 06:37 by Danita Urbano DO) Alcoholism Delirium tremens Essential hypertension Seizures (~11/16/21) Surgical History No pertinent past surgical history Family History Father Skin cancer of face Denies family history of Alcoholism Seizure disorder Social History Smoking Status: Former smoker Cigarettes Per Day: 10; Hx Alcohol Use: Yes Alcohol type: hard liquor Alcohol type Comment: DAILY consumption, mixture of bottle of wine, bottle of liquor, and/or beer Hx Substance Use: No Preferred Language: [place] Communication Ability: Effective Retail Support Associate Required: No Beliefs That Will Affect Care: None marital status: Single marital status details: x 2 Current Living Situation: Parent Current Living Situation Comment: lives w/ father in [place] current occupational status: 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 [place] How many Children do You have: 0 Feels Safe at Home: Yes Assistive Devices: None Review of Systems Review of Systems: All systems reviewed & are unremarkable except as noted in HPI & below Physical Exam Physical Exam: General: patient resting comfortably, NAD, non-toxic in appe aranme, AA&O x 4 Skin: warm, dry, intact, scattered bruising on arms, legs and hands with several healing abrasions HEENT: NC/AT, PERRL, EOMI, anicteric sclera, conjunctiva without injection, external ear normal to inspection and nontender, nares patent, moist mucus membranes, dentition intact, no oropharyngeal lesions, neck supple, trachea midline, no LAD, no thyromegaly, no JVD Heart: +S1/S2, regular, tachycardic, no m/r/g Lungs: equal air entry bilaterally, no rales/rhonchi/wheezes Abd: +BS, soft, NT/ND, no masses/organomegaly/ascites Ext: warm, 2+ pulses in UE/LE bilaterally, no clubbing/cyanosis or edema Neuro: tremulous, nonfocal, patient AA&O x 4, speech intact, no facial droop, moving all extremities on command with equal strength 5/5 Results & Data Results & Data ([place]) Vital Signs (Past 12 Hours) Vital Signs Temp Pulse Pulse Resp BP BP Pulse Ox 11/16/21 05:30 92 H 24 169/107 H 97 11/16/21 03:45 103 H 24 158/102 H 94 11/16/21 03:45 11/16/21 03:20 36.1 C L 120 H 20 161/102 H 97 O2 Del Method 11/16/21 05:30 11/16/21 03:45 11/16/21 03:45 Room Air 11/16/21 03:20 Room Air Laboratory Results Laboratory Results WBC 5.22 K/ul (4.8-10.8) 11/16/21 03:44 RBC 3.57 M/uL (4.63-6.08) L 11/16/21 03:44 Hgb 13.7 g/dl (14.0-18.0) L 11/16/21 03:44 Hct 39.6 % (40.1-51.0) L 11/16/21 03:44 MCV 110.9 fL (80.0-100.0) H 11/16/21 03:44 MCH 38.4 pg (25.0-34.0) H 11/16/21 03:44 MCHC 34.6 g/dL (32.0-36.0) 11/16/21 03:44 RDW Std Deviation 51.7 fL (36.4-46.3) H 11/16/21 03:44 RDW Coeff of Amena 12.6 % (11.5-14.5) 11/16/21 03:44 Plt Count 124 K/uL (130-400) L D 11/16/21 03:44 MPV 11.2 fL (9.4-12.4) 11/16/21 03:44 Immature Gran % (Auto) 1.0 % 11/16/21 03:44 Neut % (Auto) 76.9 % 11/16/21 03:44 Lymph % (Auto) 9.2 % 11/16/21 03:44 [place] % (Auto) 12.1 % 11/16/21 03:44 Eos % (Auto) 0.4 % 11/16/21 03:44 Baso % (Auto) 0.4 % 11/16/21 03:44 Neut # (Auto) 4.02 K/uL (1.4-6.5) 11/16/21 03:44 Lymph # (Auto) 0.48 K/uL (1.2-3.4) L 11/16/21 03:44 [place] # (Auto) 0.63 K/uL (0.24-0.82) 11/16/21 03:44 Eos # (Auto) 0.02 K/uL (0-0.50) 11/16/21 03:44 Baso # (Auto) 0.02 K/uL (0-0.2) 11/16/21 03:44 Immature Gran # (Auto) 0.05 K/uL (0.00-0.02) H 11/16/21 03:44 Giant Platelets 1+ 11/16/21 03:44 Macrocytosis Present 11/16/21 03:44 Sodium 132 mmol/L (136-145) L 11/16/21 03:44 Potassium 3.4 mmol/L (3.5-5.1) L 11/16/21 03:44 Chloride 100 mmol/L (98-107) 11/16/21 03:44 Carbon Dioxide 17 mmol/L (21-32) L 11/16/21 03:44 Anion Gap 15 (3-11) H 11/16/21 03:44 BUN 8 mg/dl (6-23) 11/16/21 03:44 Creatinine 0.80 mg/dl (0.6-1.4) 11/16/21 03:44 Est Cr Clr Drug Dosing Not Reportable 11/16/21 03:44 Est GFR ( Amer) 125.9 ml/min 11/16/21 03:44 Est GFR (Non-Af Amer) 108.6 ml/min 11/16/21 03:44 BUN/Creatinine Ratio 10.0 (10-20) 11/16/21 03:44 Glucose 133 mg/dl (70-99(Fasting)) H 11/16/21 03:44 Calcium 9.6 mg/dl (8.5-10.1) 11/16/21 03:44 Total Bilirubin 2.3 mg/dl (0.2-1.0) H 11/16/21 03:44 AST 109 U/L (13-39) H 11/16/21 03:44 ALT 87 U/L (7-52) H 11/16/21 03:44 Alkaline Phosphatase 182 U/L (34-104) H 11/16/21 03:44 Total Protein 8.7 gm/dl (6.0-8.3) H 11/16/21 03:44 Albumin 4.4 gm/dl (3.4-5.0) 11/16/21 03:44 Globulin 4.3 gm/dl (2.5-4.0) H 11/16/21 03:44 Albumin/Globulin Ratio 1.0 (0.9-2) 11/16/21 03:44 SARS-CoV-2, RNA, NAAT NEGATIVE (NEGATIVE) 11/16/21 05:32 Critical Care Time 60 minutes PG Care Time/CCT Total # of Minutes Spent Total Time Spent with Patient: Total time spent is greater than 50% in coordination of care (as documented) at patient's floor/unit and/or counseling patient: Coding Level of Care Code None Diagnoses Alcohol withdrawal seizure F10.239; R56.9 Seizure R56.9 Essential hypertension I10 Alcoholic liver disease K70.9
--- NOTE | 2021-11-16 06:47 | Hospitalist Progress Note ---
Date of Service November 16, 2021 Assessment & Plan (1) Alcohol withdrawal seizure: Plan: 46yo male with longstanding history of EtOH abuse, prior withdrawal seizures and DTs presents with seizure x 3 prior to arrival as well as brief seizure witnessed in the ER. Believed to be secondary to EtOH withdrawal. Alcohol withdrawal seizure - Management per ICU with: -AWSS with IV Ativan -Librium taper - hepatic dosing - Benzodiazepine taper -Banana bag ordered -Check B12, Folate and Mg levels -Check Utox -Check EtoH level -Thiamine and Folate daily -Maintain seizure precautions, aspiration and fall precautions Seizure Patient with history of epilepsy as well as EtOH withdrawal seizures. He reports his seizures tonight were more like his withdrawal seizure. -Management for alcohol withdrawal as above -Continue Lamictal 150mg po BID Essential Hypertension Blood pressure elevated in setting of EtOH withdrawal -Continue Clonidine 0.2mg po BID -Continue Lisinopril 20mg po daily Alcohol liver disease Patient with evidence of liver dysfunction to include mild hyponatremia, thrombocytopenia as well a elevation of AST, ALT, AP and Tbili -Check INR -Continue to monitor LFTs - Check viral hepatitis panel - liver Us: Mild nodularity of the surface contour suggests early morphologic change of cirrhosis. Megaloblastic Anemia - B12 and folate wnl - Baseline 11-13; 13.7 on admission - MCV= 110 - Continue to trend F/E/N - LR at 80mL/hr x 2L, Ppx - Lovanox 30mg Code - Full (2) Seizure: (3) Essential hypertension: (4) Alcoholic liver disease: Supervising Physician Co-Signing Physician Notes I also saw the patient and confirmed simms portions of the history and physical examination. I discussed the case with the resident physician. I also attended ICU rounds this morning. I agree with the impression and plan as noted in the resident documentation. Exam 154/112, 104, 23, 37.2, 96 on room air Hemodynamically stable Upon exam, the patient is sleeping. No seizure activity appreciated. Data WBC 5.22, hemoglobin 13.7, platelet count 124 Sodium 132, testing 3.4, BUN 8, creatinine 0.8 Total bilirubin 2.3, AST 109, ALT 87, alkaline phosphatase 182. Liver ultrasound demonstrates an enlarged and steatotic liver, mild nodularity consistent with cirrhosis. A tiny gallstone is incidentally noted. Impression and Plan Acute alcohol withdrawal Alcoholic liver disease/history of hepatic encephalopathy Benzodiazepine taper Lamictal Monitor LFTs/electrolytes Nutritional support Additional per resident note. Primary management remains with the ICU team Subjective 46 year old male with a past medical history of alcoholism with complicated withdrawal, DTs and withdrawal seizure, epilepsy, and HTN that presented to the ED with alcohol withdrawal seizure. Pt presented with his father after having 3 seizures at home. This morning he does not have any complaints. States his last drink was Friday and prior to that was drinking a fifth of vodka or Mark Roa every 2 days. Denies nausea, vomiting, visual/auditory hallucinations, chest pain, dyspnea, tremors. Patient states that he is uninterested in going to rehab at this time. He lives at home with his father. Review of Systems Review of Systems: As per HPI Physical Exam Constitutional: Constitutional: well-appearing, no acute distress, PERRLA, EOMI HEENT: NCAT, no conjunctival injection CV: regular rhythm, no murmur appreciated, extremities well-perfused, no LE edema Resp: CTABL, no wheezes/rales/rhonchi appreciated, no increased work of breathing GI: soft, nondistended, nontender, BS normoactive MSK: no gross deformities appreciated, strength 5/5 upper and lower extremities Skin: warm, dry, no rash appreciated Neuro: alert, oriented, no focal neurologic deficit appreciated, no tremors Results & Data Results & Data ([facility]) Vital Signs (Past 12 Hours) Vital Signs Temp Pulse Pulse Resp BP BP Pulse Ox 11/16/21 05:30 92 H 24 169/107 H 97 11/16/21 03:45 103 H 24 158/102 H 94 11/16/21 03:45 11/16/21 03:20 36.1 C L 120 H 20 161/102 H 97 O2 Del Method 11/16/21 05:30 11/16/21 03:45 11/16/21 03:45 Room Air 11/16/21 03:20 Room Air
--- NOTE | 2021-11-16 08:07 | Ultrasound Report ---
ULTRASOUND RIGHT UPPER QUADRANT ABDOMEN CLINICAL HISTORY: Alcoholic steatosis. COMPARISON STUDY: Abdominal ultrasound dated 01/14/2021 TECHNIQUE: Real-time, grayscale, and color flow sonography of the right upper quadrant of the abdomen was performed. Images are reviewed in the transverse and longitudinal planes. FINDINGS: Liver: The liver is enlarged and demonstrates heterogeneous increased echotexture indicating steatosi s. Nodularity of the hepatic surface contour suggests early morphologic changes of cirrhosis. There i s no intrahepatic biliary ductal dilatation. The main portal vein is patent. Gallbladder: A tiny gallstone is incidentally noted. The gallbladder is otherwise normal in appearanc e. There is no gallbladder wall thickening or pericholecystic fluid. A sonographic Campbell's sign is r eportedly absent. The common bile duct measures up to 0.4 cm in diameter. Pancreas: Visualized portions of the pancreatic head and body are normal in appearance. Right kidney: Survey images of the right kidney demonstrate normal size and echotexture. There is no hydronephrosis. Ascites: None. IMPRESSION: 1. The liver is enlarged and steatotic. 2. Mild nodularity of the surface contour suggests early morphologic change of cirrhosis. 3. A tiny gallstone is incidentally noted. ACT 112: Negative or not required by law. Electronically signed by: Joshua Rowe M.D. 11/16/2021 8:05 AM
[2021-11-16] MEDS ORDERED: ICU PROTOCOL FOR HYPERGLYCEMIA PRN (08:40)
[2021-11-16] MEDS ORDERED: chlordiazePOXIDE ALCOHOL WITHDRAWL 25MG PO STA (08:40)
[2021-11-16] MEDS ORDERED: LORazepam 1 MG in SYRINGE 0.5 ML IV PRN (08:40)
[2021-11-16] MEDS ORDERED: LORazepam 3 MG in SYRINGE 1.5 ML IV PRN (08:40)
[2021-11-16] MEDS ORDERED: Ativan IV Alcohol Withdrawal--Active Protocol IV PRN (08:40)
[2021-11-16] MEDS ORDERED: MULTI-VITAMIN INFUSION 10 ML, THIAMINE HCL 100 MG, FOLIC ACID 1 MG in SODIUM CHLORIDE 0... IV ONE (09:15)
[2021-11-16] MEDS: LACTATED RINGER'S 1,000 ML IV SCH ×2 (09:23→20:15)
[2021-11-16] MEDS: POTASSIUM CHLORIDE / WTR 10 MEQ/100 ML PLCT IV SCH ×3 (09:24→11:21)
[2021-11-16] MEDS: cloNIDine HCL 0.1 MG TAB PO SCH ×2 (09:24→20:08)
[2021-11-16] MEDS: chlordiazePOXIDE HCl 25 MG CAP PO SCH ×3 (09:25→20:15)
[2021-11-16 09:36] LABS: Amphetamines+Metham, Urine Neg (Neg); Barbiturates, Urine Neg (Neg); Benzodiazepine, Urine Neg (Neg); Cocaine, Urine Neg (Neg); MDMA (Ecstacy), Urine Neg (Neg); Methadone, Urine Neg (Neg); Opiate, Urine Neg (Neg); Phencyclidine, Urine Neg (Neg)
--- NOTE | 2021-11-16 09:44 | Critical Care Consultation ---
Date of Consultation November 16, 2021 Assessment & Plan (1) Alcoholism: Reason Critically Ill: 46-year-old male with acute alcohol withdrawal PLAN: Neuro: Alcohol withdrawal seizure History of seizures -On benzodiazepine taper -Continue Lamictal 150 mg by mouth twice daily Acute alcohol withdraw -Continue Librium taper History hepatic encephalopathy -Check in a.m. CV: Hypertension -Clonidine 0.2 mg by mouth twice daily -Continue lisinopril 20 mg daily Fluids/Renal: Additional fluids: LR at 80 mL/h written to discontinue after 2 bags GI/Nutrition: Alcoholic liver disease -Supportive care -Not able to find prior hepatitis panel so this is ordered as an a.m. lab: Rule out viral hepatitis Heme: Megaloblastic anemia -Nutritional support: C/W alcoholism DVT prophylaxis: Lovenox 30 mg Endocrine: ICU hyperglycemia protocol Vascular access: Peripheral IVs Code Status: Full code Disposition: ICU (2) Alcohol withdrawal: History of Present Illness Reason for Consultation: Acute alcohol withdrawal Requesting Physician: Danita Urbano DO Attending Physician: Danita Urbano DO History of Present Illness History is obtained from prior records. Patient has a longstanding history of alcohol with BX last drink approximately 1 week ago. Patient has recently experienced withdrawal seizures. He was admitted to the hospital and sent to the PCU which was reportedly uncomfortable with management of this patient. Allergies Allergy/AdvReac Type Severity Reaction Status Date / Time No Known Allergies Allergy Mild Verified 11/11/21 20:10 Home Medications Medication Instructions Recorded Confirmed Type lamotrigine 150 mg tablet 150 mg PO BID 01/13/21 11/11/21 History (Lamictal) potassium chloride 10 mEq 10 meq PO DAILY #30 tabs 01/19/21 11/11/21 Rx tablet,extended release clonidine HCl 0.1 mg tablet 0.2 mg PO BID 11/11/21 11/11/21 History folic acid 1 mg tablet 1 mg PO DAILY 11/11/21 11/11/21 History lisinopril 20 mg tablet 20 mg PO DAILY 11/11/21 11/11/21 History gabapentin 300 mg capsule 300 mg PO UD #3 caps 11/14/21 Rx naltrexone 50 mg tablet 50 mg PO DAILY #7 tabs 11/14/21 Rx Patient History Medical History Alcoholism Delirium tremens Essential hypertension Seizures (~11/16/21) Surgical History No pertinent past surgical history Family History Father Skin cancer of face Denies family history of Alcoholism Seizure disorder Social History Smoking Status: Current every day smoker Cigarettes Per Day: 10; Hx Alcohol Use: Yes Alcohol type: hard liquor Alcohol type Comment: DAILY consumption, mixture of bottle of wine, bottle of liquor, and/or beer Hx Substance Use: No Preferred Language: Nepali Communication Ability: Effective 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 Tremulous. Oriented to self Skin: Warm, mild diaphoresis, Head: Atraumatic Ears, nose, mouth and throat: airway patent Cardiovascular: Normal peripheral perfusion, tachycardia on bedside monitor Respiratory: no respiratory distress Gastrointestinal: Non distended Musculoskeletal: No deformity Results & Data Results & Data ([facility]) Vital Signs (Past 12 Hours) Vital Signs Temp Pulse Pulse Resp BP BP Pulse Ox 11/16/21 09:30 109 H 21 98 11/16/21 09:20 102 H 20 98 11/16/21 09:10 90 23 96 11/16/21 09:06 165/106 H 11/16/21 09:06 95 H 21 97 11/16/21 09:00 96 H 23 98 11/16/21 08:50 95 H 0 L 11/16/21 08:40 111 H 28 H 11/16/21 08:30 99 H 6 L 11/16/21 08:28 94 H 12 11/16/21 08:10 98 H 21 97 11/16/21 08:00 98 H 23 97 11/16/21 08:00 159/107 H 11/16/21 09:37 11/16/21 09:36 11/16/21 09:36 37.3 C 11/16/21 08:46 11/16/21 08:26 36.9 C 98 H 16 168/84 H 97 11/16/21 08:05 102 H 20 137/72 97 11/16/21 07:22 103 H 16 134/87 97 11/16/21 05:30 92 H 24 169/107 H 97 11/16/21 03:45 103 H 24 158/102 H 94 11/16/21 03:45 11/16/21 03:20 36.1 C L 120 H 20 161/102 H 97 O2 Del Method 11/16/21 09:30 11/16/21 09:20 11/16/21 09:10 11/16/21 09:06 11/16/21 09:06 11/16/21 09:00 11/16/21 08:50 11/16/21 08:40 11/16/21 08:30 11/16/21 08:28 11/16/21 08:10 11/16/21 08:00 11/16/21 08:00 11/16/21 09:37 Room Air 11/16/21 09:36 Room Air 11/16/21 09:36 11/16/21 08:46 Room Air 11/16/21 08:26 Room Air 11/16/21 08:05 Room Air 11/16/21 07:22 Room Air 11/16/21 05:30 11/16/21 03:45 11/16/21 03:45 Room Air 11/16/21 03:20 Room Air Critical Care Results & Data Vital Signs (Past 12 Hours) Vital Signs Temp Pulse Pulse Resp BP BP Pulse Ox 11/16/21 13:00 104 H 23 96 11/16/21 13:00 154/112 H 11/16/21 12:00 86 29 H 97 11/16/21 12:00 151/102 H 11/16/21 11:00 93 H 23 95 11/16/21 11:00 154/108 H 11/16/21 12:00 11/16/21 10:30 97 H 24 96 11/16/21 10:00 112 H 19 97 11/16/21 10:00 169/121 H 11/16/21 11:00 11/16/21 09:30 109 H 21 98 11/16/21 09:20 102 H 20 98 11/16/21 09:10 90 23 96 11/16/21 09:06 165/106 H 11/16/21 09:06 95 H 21 97 11/16/21 09:00 96 H 23 98 11/16/21 08:50 95 H 0 L 11/16/21 08:40 111 H 28 H 11/16/21 08:30 99 H 6 L 11/16/21 08:28 94 H 12 11/16/21 08:10 98 H 21 97 11/16/21 08:00 98 H 23 97 11/16/21 08:00 159/107 H 11/16/21 09:37 11/16/21 09:36 11/16/21 09:36 37.3 C 11/16/21 08:46 11/16/21 08:26 36.9 C 98 H 16 168/84 H 97 11/16/21 08:05 102 H 20 137/72 97 11/16/21 07:22 103 H 16 134/87 97 11/16/21 05:30 92 H 24 169/107 H 97 11/16/21 03:45 103 H 24 158/102 H 94 11/16/21 03:45 11/16/21 03:20 36.1 C L 120 H 20 161/102 H 97 O2 Del Method 11/16/21 13:00 11/16/21 13:00 11/16/21 12:00 11/16/21 12:00 11/16/21 11:00 Room Air 11/16/21 11:00 11/16/21 12:00 Room Air 11/16/21 10:30 Room Air 11/16/21 10:00 11/16/21 10:00 11/16/21 11:00 Room Air 11/16/21 09:30 11/16/21 09:20 11/16/21 09:10 11/16/21 09:06 11/16/21 09:06 11/16/21 09:00 11/16/21 08:50 11/16/21 08:40 11/16/21 08:30 11/16/21 08:28 11/16/21 08:10 11/16/21 08:00 11/16/21 08:00 11/16/21 09:37 Room Air 11/16/21 09:36 Room Air 11/16/21 09:36 11/16/21 08:46 Room Air 11/16/21 08:26 Room Air 11/16/21 08:05 Room Air 11/16/21 07:22 Room Air 11/16/21 05:30 11/16/21 03:45 11/16/21 03:45 Room Air 11/16/21 03:20 Room Air Lab & Micro Results (Past 24 Hours) RBC 3.57 M/uL (4.63-6.08) L 11/16/21 WBC 5.22 K/ul (4.8-10.8) 11/16/21 Hgb 13.7 g/dl (14.0-18.0) L 11/16/21 Hct 39.6 % (40.1-51.0) L 11/16/21 MCV 110.9 fL (80.0-100.0) H 11/16/21 MCH 38.4 pg (25.0-34.0) H 11/16/21 MCHC 34.6 g/dL (32.0-36.0) 11/16/21 RDW Standard Deviation 51.7 fL (36.4-46.3) H 11/16/21 RDW Coefficient of Variation 12.6 % (11.5-14.5) 11/16/21 Plt Count 124 K/uL (130-400) L 11/16/21 MPV 11.2 fL (9.4-12.4) 11/16/21 Neutrophils (%) (Auto) 76.9 % 11/16/21 Lymphocytes (%) (Auto) 9.2 % 11/16/21 Monocytes # (Auto) 0.63 K/uL (0.24-0.82) 11/16/21 Eosinophils # (Auto) 0.02 K/uL (0-0.50) 11/16/21 Immature Granulocyte % (Auto) 1.0 % 11/16/21 Neutrophils # (Auto) 4.02 K/uL (1.4-6.5) 11/16/21 Lymphocytes # (Auto) 0.48 K/uL (1.2-3.4) L 11/16/21 Monocytes # (Auto) 0.63 K/uL (0.24-0.82) 11/16/21 Eosinophils # (Auto) 0.02 K/uL (0-0.50) 11/16/21 Basophils # (Auto) 0.02 K/uL (0-0.2) 11/16/21 Immature Granulocyte # (Auto) 0.05 K/uL (0.00-0.02) H 11/16 Giant Platelets 1+ 11/16/21 Macrocytosis Present 11/16/21 Na 132 mmol/L (136-145) L 11/16/21 K 3.4 mmol/L (3.5-5.1) L 11/16/21 Cl 100 mmol/L (98-107) 11/16/21 CO2 17 mmol/L (21-32) L 11/16/21 Anion Gap 15 (3-11) H 11/16/21 BUN 8 mg/dl (6-23) 11/16/21 Creatinine 0.80 mg/dl (0.6-1.4) 11/16/21 Estimated GFR ( Amer) 125.9 ml/min 11/16/21 Estimated GFR (Non-Af Amer) 108.6 ml/min 11/16/21 BUN/Creatinine Ratio 10.0 (10-20) 11/16/21 Glu 133 mg/dl (70-99(Fasting)) H 11/16/21 Ca 9.6 mg/dl (8.5-10.1) 11/16/21 Phosphorus Level 2.1 mg/dl (2.5-4.9) L 11/16/21 Total Bilirubin 2.3 mg/dl (0.2-1.0) H 11/16/21 AST 109 U/L (13-39) H 11/16/21 ALT 87 U/L (7-52) H 11/16/21 Alkaline Phosphatase 182 U/L (34-104) H 11/16/21 TP 8.7 gm/dl (6.0-8.3) H 11/16/21 Albumin 4.4 gm/dl (3.4-5.0) 11/16/21 Globulin 4.3 gm/dl (2.5-4.0) H 11/16/21 Albumin/Globulin Ratio 1.0 (0.9-2) 11/16/21 Mg 1.8 mg/dl (1.7-2.4) 11/16/21 09:26 Calcium Level 9.6 mg/dl (8.5-10.1) 11/16/21 03:44 Diagnostic Findings (Past 24 Hours) Liver Ultrasound 11/16/21 07:08 ULTRASOUND RIGHT UPPER QUADRANT ABDOMEN CLINICAL HISTORY: Alcoholic steatosis. COMPARISON STUDY: Abdominal ultrasound dated 01/14/2021 TECHNIQUE: Real-time, grayscale, and color flow sonography of the right upper quadrant of the abdomen was performed. Images are reviewed in the transverse and longitudinal planes. FINDINGS: Liver: The liver is enlarged and demonstrates heterogeneous increased echotexture indicating steatosis. Nodularity of the hepatic surface contour suggests early morphologic changes of cirrhosis. There is no intrahepatic biliary ductal dilatation. The main portal vein is patent. Gallbladder: A tiny gallstone is incidentally noted. The gallbladder is otherwise normal in appearance. There is no gallbladder wall thickening or pericholecystic fluid. A sonographic Campbell's sign is reportedly absent. The common bile duct measures up to 0.4 cm in diameter. Pancreas: Visualized portions of the pancreatic head and body are normal in appearance. Right kidney: Survey images of the right kidney demonstrate normal size and echotexture. There is no hydronephrosis. Ascites: None. IMPRESSION: 1. The liver is enlarged and steatotic. 2. Mild nodularity of the surface contour suggests early morphologic change of cirrhosis. 3. A tiny gallstone is incidentally noted. ACT 112: Negative or not required by law. Electronically signed by: Joshua Rowe M.D. 11/16/2021 8:05 AM I & O Totals 24 Hours 11/15/21 11/16/21 11/17/21 06:59 06:59 06:59 Intake Total 500 / 500 545 / 545 Output Total 950 / 950 Balance 500 / 500 -405 / -405 Cumulative 11/16/21 03:19 thru 11/16/21 13:10 Intake Total 1045 Output Total 950 Balance 95 RT Ventilator Mngmt (Last Documented) Ventilator Ordered Settings Respiratory Rate 23 11/16/21 13:00 Ventilator - PT Measurements Respiratory Rate 23 Coding Level of Care Code Critical Care 1st 30-74 mins Diagnoses Alcoholism F10.20 Alcohol withdrawal F10.231 Complication of substance-induced condition: with delirium Time Spent (min) 45 (1) Alcohol withdrawal Complication of substance-induced condition: with delirium Qualified Code(s): F10.231 - Alcohol dependence with withdrawal delirium
--- NOTE | 2021-11-16 09:58 | Electrocardiogram Report ---
Test Reason : Blood Pressure : / mmHG Vent. Rate : 098 BPM Atrial Rate : 098 BPM P-R Int : 140 ms QRS Dur : 094 ms QT Int : 390 ms P-R-T Axes : 057 012 030 degrees QTc Int : 497 ms Poor data quality, interpretation may be adversely affected Normal sinus rhythm Prolonged QT Abnormal ECG When compared with ECG of 11-NOV-2021 18:19, No significant change was found Confirmed by Inocencio Clarke ([id number]) on 11/16/2021 9:58:26 AM Referred By: REFERRED SELF Confirmed By:Inocencio Clarke
[2021-11-16] MEDS: lamoTRIgine 100 MG TAB PO SCH ×2 (10:07→20:08)
[2021-11-16] MEDS: lisinopril 20 MG TAB PO SCH (10:07)
[2021-11-16 10:15] LABS: Magnesium 1.8 mg/dl (1.7-2.4); Phosphorus 2.1 mg/dl (2.5-4.9)
[2021-11-16 10:36] LABS: Folate (Folic Acid) > 22.30 ng/ml (>5.38)
[2021-11-16 10:37] LABS: Vitamin B12 532 pg/ml (180-914)
[2021-11-16] MEDS: LORazepam 2 MG in SYRINGE 1 ML IV PRN ×2 (20:07→22:36)
[2021-11-17] MEDS: LORazepam 2 MG in SYRINGE 1 ML IV PRN (00:36)
[2021-11-17] MEDS: chlordiazePOXIDE HCl 25 MG CAP PO SCH ×3 (03:35→17:35)
[2021-11-17 04:45] LABS: INR 1.1 (0.9-1.1); Prothrombin Time 11.6 Seconds (9.0-12.0)
[2021-11-17 05:02] LABS: Albumin Level 3.3 gm/dl (3.4-5.0); BUN Creatinine Ratio 8.7 (10-20); Bilirubin Direct 0.6 mg/dl (0-0.2); Bilirubin,Total 1.7 mg/dl (0.2-1.0); Calcium 8.9 mg/dl (8.5-10.1); Creatinine Clr Calc Pharmacy 145.5 ml/min; Est GFR (African American) 133.8 ml/min; Est GFR (Non-African American) 115.5 ml/min; Potassium 3.2 mmol/L (3.5-5.1); Total Protein 6.6 gm/dl (6.0-8.3)
[2021-11-17 05:21] LABS: Hematocrit (blood only) 35.9 % (40.1-51.0); Hemoglobin 12.4 g/dl (14.0-18.0); Mean Corpuscular Hemoglobin 38.6 pg (25.0-34.0); Mean Corpuscular Hgb Conc 34.5 g/dL (32.0-36.0); Mean Corpuscular Volume 111.8 fL (80.0-100.0); Mean Platelet Volume 10.7 fL (9.4-12.4); Platelet Count 96 K/uL (130-400); Platelet Estimate Decreased (Normal); RDW Coefficient of Variation 12.6 % (11.5-14.5); Red Blood Count 3.21 M/uL (4.63-6.08); White Blood Count 4.35 K/ul (4.8-10.8)
[2021-11-17] MEDS ORDERED: VASOPRESSIN 20 UNITS in 0.9 % SODIUM CHLORIDE 100 ML IV SCH (05:30)
[2021-11-17] MEDS ORDERED: STAT IV Infusion **Titration per Protocol STA (05:30)
[2021-11-17] MEDS ORDERED: POTASSIUM CHLORIDE 20 MEQ/15 ML UDC PO STA (06:03)
[2021-11-17] MEDS: POTASSIUM CHLORIDE / WTR 10 MEQ/100 ML PLCT IV SCH ×2 (06:16→07:20)
--- NOTE | 2021-11-17 06:41 | Hospitalist Progress Note ---
Date of Service November 17, 2021 Assessment & Plan (1) Alcohol withdrawal seizure: Plan: 46yo male with longstanding history of EtOH abuse, prior withdrawal seizures and DTs presents with seizure x 3 prior to arrival as well as brief seizure witnessed in the ER. Believed to be secondary to EtOH withdrawal. Alcohol withdrawal seizure Management per ICU with: -AWSS with IV Ativan: has received 7mg over the past 24 hours; AWSS=4 this morning -Librium taper - hepatic dosing - Benzodiazepine taper -Banana bag recived -B12, Folate and Mg levels wnl -Utox negative - EtoH level <10 -Thiamine and Folate daily -Maintain seizure precautions, aspiration and fall precautions Seizure Patient with history of epilepsy as well as EtOH withdrawal seizures. He reports his seizures with this admission were consistent with withdrawal seizure. -Management for alcohol withdrawal as above -Continue Lamictal 150mg po BID Essential Hypertension Blood pressure elevated in setting of EtOH withdrawal -Continue Clonidine 0.2mg po BID -Continue Lisinopril 20mg po daily Alcohol liver disease Patient with evidence of liver dysfunction to include mild hyponatremia, thrombocytopenia as well a elevation of AST, ALT, AP and Tbili -INR= 1.1 -Continue to monitor LFTs - viral hepatitis panel pending - liver Us: Mild nodularity of the surface contour suggests early morphologic change of cirrhosis. Megaloblastic Anemia - B12 and folate wnl - Baseline 11-13; 13.7 on admission - MCV= 110 - Continue to trend F/E/N - LR at 80mL/hr x 2L, Ppx - Lovanox 30mg Code - Full (2) Seizure: (3) Essential hypertension: (4) Alcoholic liver disease: Admission and Anticipated Discharge Date Admission Date: November 16, 2021 Supervising Physician Co-Signing Physician Notes Resident Physician Supervision Note: I independently interviewed and examined the patient and verified the simms history and physical, reviewed labs and image studies and agree with resident findings and care plan. Subjective 46 year old male with a past medical history of alcoholism with complicated withdrawal, DTs and withdrawal seizure, epilepsy, and HTN that presented to the ED with alcohol withdrawal seizure. Pt presented with his father after having 3 seizures at home. Of note he was admitted from 11/11-11/14 for alcohol withdrawal. States his last drink was Friday (11/12) and prior to that was drinking a fifth of vodka or Mark Roa every 2 days. This morning he does not have any complaints. Denies nausea, vomiting, visual/auditory hallucinations, chest pain, dyspnea, tremors. Patient states that he is uninterested in going to rehab at this time. He lives at home with his father. Review of Systems Review of Systems: As per HPI Physical Exam Physical Exam: Constitutional: well-appearing, no acute distress HEENT: NCAT, no conjunctival injection CV: regular rhythm, no murmur appreciated, extremities well-perfused, no LE edema Resp: CTABL, no wheezes/rales/rhonchi appreciated, no increased work of breathing GI: soft, nondistended, nontender, BS normoactive MSK: no gross deformities appreciated, strength 5/5 upper and lower extremities Skin: warm, dry, no rash appreciated Neuro: alert, oriented, no focal neurologic deficit appreciated, no tremors Results & Data Results & Data ([facility]) Vital Signs (Past 12 Hours) Vital Signs Temp Pulse Resp BP Pulse Ox 11/17/21 05:00 82 22 95 11/17/21 05:00 137/84 11/17/21 04:00 77 22 95 11/17/21 04:00 147/99 H 11/17/21 03:00 74 24 95 11/17/21 03:00 137/96 11/17/21 02:00 36.7 C 82 24 96 11/17/21 02:00 147/98 H 11/17/21 01:00 77 21 96 11/17/21 01:00 148/105 H 11/17/21 00:10 36.6 C 75 23 96 11/17/21 00:10 157/105 H 11/16/21 23:00 81 24 96 11/16/21 23:00 145/104 H 11/16/21 22:56 76 11/16/21 22:00 82 21 94 11/16/21 22:00 135/99 11/16/21 21:00 119 H 27 H 96 11/16/21 21:00 36.6 C 158/109 H 11/16/21 20:30 128 H 28 H 96 11/16/21 20:00 98 H 26 H 96 11/16/21 20:00 150/101 H 11/16/21 19:30 36.6 C 163/111 H 11/16/21 19:30 97 H 19 95 Resident Activity Tracking Resident Involvement: Resident Care Provided Care Provided: Adult Hospital Medicine
[2021-11-17] MEDS: MAGNESIUM SULFATE / D5W 1 GM/100 ML BAG IV SCH ×2 (07:30→09:36)
[2021-11-17] MEDS: lisinopril 20 MG TAB PO SCH (08:24)
[2021-11-17] MEDS: FERROUS SULFATE 325 MG TAB PO SCH (08:24)
[2021-11-17] MEDS: MULTIVITAMIN TAB PO SCH (08:25)
[2021-11-17] MEDS: ASCORBIC ACID 500 MG TAB PO SCH (08:25)
[2021-11-17] MEDS: THIAMINE HCL 100 MG TAB PO SCH (08:25)
[2021-11-17] MEDS: lamoTRIgine 100 MG TAB PO SCH ×2 (08:25→19:51)
[2021-11-17] MEDS: ENOXAPARIN INJ 30 MG/0.3 ML SYR SQ SCH (08:27)
[2021-11-17] MEDS: cloNIDine HCL 0.1 MG TAB PO SCH ×2 (08:32→19:52)
[2021-11-17] MEDS: FOLIC ACID 1 MG in SYRINGE 9.8 ML IV SCH (08:35)
[2021-11-17] MEDS ORDERED: THIAMINE HCL 100 MG in SYRINGE 9 ML IV SCH (09:00)
--- NOTE | 2021-11-17 14:58 | Critical Care Progress Note ---
Date of Service November 17, 2021 Assessment & Plan (1) Alcoholism: Plan: Reason Critically Ill: 46-year-old male with acute alcohol withdrawal PLAN: Neuro: Alcohol withdrawal seizure History of seizures -On benzodiazepine taper -Continue Lamictal 150 mg by mouth twice daily Acute alcohol withdraw -Continue Librium taper History hepatic encephalopathy -ammonia within normal range CV: Hypertension -Clonidine 0.2 mg by mouth twice daily -Continue lisinopril 20 mg daily GI/Nutrition: Alcoholic liver disease -Supportive care -Not able to find prior hepatitis panel: pending Heme: Megaloblastic anemia -Nutritional support: C/W alcoholism DVT prophylaxis: Lovenox 30 mg Endocrine: ICU hyperglycemia protocol Vascular access: Peripheral IVs Code Status: Full code Disposition: Stable for downgrade out of ICU (2) Alcohol withdrawal: Admission and Anticipated Discharge Date Admission Date: November 16, 2021 Subjective Waxing and waning mental status throughout the day. Overnight was more disoriented. Improved during morning evaluation Physical Exam Physical Exam: General: Alert. Tremulous. Oriented to self Skin: Warm, dry, Head: Atraumatic Ears, nose, mouth and throat: airway patent Cardiovascular: Normal peripheral perfusion Respiratory: no respiratory distress Gastrointestinal: Non distended Musculoskeletal: No deformity Results & Data Results & Data ([facility]) Vital Signs (Past 12 Hours) Vital Signs Temp Pulse Resp BP Pulse Ox O2 Del Method 11/17/21 10:00 75 19 11/17/21 09:00 80 24 11/17/21 09:00 154/109 H 11/17/21 08:00 80 7 L 95 11/17/21 08:00 159/106 H 11/17/21 11:00 37.2 C 11/17/21 07:24 37.1 C 153/97 H 96 Room Air 11/17/21 07:24 92 H 24 11/17/21 07:00 84 25 H 11/17/21 07:34 Room Air 11/17/21 05:00 82 22 95 11/17/21 05:00 137/84 11/17/21 04:00 77 22 95 11/17/21 04:00 147/99 H 11/17/21 03:00 74 24 95 11/17/21 03:00 137/96 Critical Care Results & Data Vital Signs (Past 12 Hours) Vital Signs Temp Pulse Resp BP Pulse Ox O2 Del Method 11/17/21 10:00 75 19 11/17/21 09:00 80 24 11/17/21 09:00 154/109 H 11/17/21 08:00 80 7 L 95 11/17/21 08:00 159/106 H 11/17/21 11:00 37.2 C 11/17/21 07:24 37.1 C 153/97 H 96 Room Air 11/17/21 07:24 92 H 24 11/17/21 07:00 84 25 H 11/17/21 07:34 Room Air 11/17/21 05:00 82 22 95 11/17/21 05:00 137/84 11/17/21 04:00 77 22 95 11/17/21 04:00 147/99 H 11/17/21 03:00 74 24 95 11/17/21 03:00 137/96 Lab & Micro Results (Past 24 Hours) RBC 3.21 M/uL (4.63-6.08) L 11/17/21 WBC 4.35 K/ul (4.8-10.8) L 11/17/21 Hgb 12.4 g/dl (14.0-18.0) L 11/17/21 Hct 35.9 % (40.1-51.0) L 11/17/21 MCV 111.8 fL (80.0-100.0) H 11/17/21 MCH 38.6 pg (25.0-34.0) H 11/17/21 MCHC 34.5 g/dL (32.0-36.0) 11/17/21 RDW Standard Deviation 52.0 fL (36.4-46.3) H 11/17/21 RDW Coefficient of Variation 12.6 % (11.5-14.5) 11/17/21 Plt Count 96 K/uL (130-400) L 11/17/21 MPV 10.7 fL (9.4-12.4) 11/17/21 Na 137 mmol/L (136-145) 11/17/21 K 3.2 mmol/L (3.5-5.1) L 11/17/21 Cl 107 mmol/L (98-107) 11/17/21 CO2 23 mmol/L (21-32) 11/17/21 Anion Gap 7 (3-11) 11/17/21 BUN 6 mg/dl (6-23) 11/17/21 Creatinine 0.69 mg/dl (0.6-1.4) 11/17/21 Estimated GFR ( Amer) 133.8 ml/min 11/17/21 Estimated GFR (Non-Af Amer) 115.5 ml/min 11/17/21 BUN/Creatinine Ratio 8.7 (10-20) L 11/17/21 Glu 88 mg/dl (70-99(Fasting)) 11/17/21 Ca 8.9 mg/dl (8.5-10.1) 11/17/21 Total Bilirubin 1.7 mg/dl (0.2-1.0) H 11/17/21 Direct Bilirubin 0.6 mg/dl (0-0.2) H 11/17/21 AST 65 U/L (13-39) H 11/17/21 ALT 53 U/L (7-52) H 11/17/21 Alkaline Phosphatase 134 U/L (34-104) H 11/17/21 TP 6.6 gm/dl (6.0-8.3) 11/17/21 Albumin 3.3 gm/dl (3.4-5.0) L 11/17/21 Mg 1.8 mg/dl (1.7-2.4) 11/17/21 04:13 Calcium Level 8.9 mg/dl (8.5-10.1) 11/17/21 04:13 Prothromb Time International Ratio 1.1 (0.9-1.1) 11/17/21 04:1 3 I & O Totals 24 Hours 11/16/21 11/17/21 11/18/21 06:59 06:59 06:59 Intake Total 500 / 500 2425.533 / 2425.533 1200 / 1200 Output Total 2100 / 2100 500 / 500 Balance 500 / 500 325.533 / 325.533 700 / 700 Cumulative 11/16/21 03:19 thru 11/17/21 14:25 Intake Total 4125.533 Output Total 2600 Balance 1525.533 RT Ventilator Mngmt (Last Documented) Ventilator Ordered Settings Respiratory Rate 19 11/17/21 10:00 Ventilator - PT Measurements Respiratory Rate 19 Coding Level of Care Code 23971 Subseq Hosp Care Lvl 3 Diagnoses Alcoholism F10.20 Alcohol withdrawal F10.231 Complication of substance-induced condition: with delirium (1) Alcohol withdrawal Complication of substance-induced condition: with delirium Qualified Code(s): F10.231 - Alcohol dependence with withdrawal delirium
[2021-11-18] MEDS: chlordiazePOXIDE HCl 25 MG CAP PO SCH (02:44)
--- NOTE | 2021-11-18 06:47 | Hospitalist Progress Note ---
Date of Service November 18, 2021 Assessment & Plan (1) Alcohol withdrawal seizure: Plan: 46yo male with longstanding history of EtOH abuse, prior withdrawal seizures and DTs presents with seizure x 3 prior to arrival as well as brief seizure witnessed in the ER. Believed to be secondary to EtOH withdrawal. Alcohol withdrawal seizure -AWSS with IV Ativan: last dose of 11/17 at 00:36; AWSS= 2 this morning -Librium taper - hepatic dosing - Benzodiazepine taper -Banana bag received -B12, Folate and Mg levels wnl -Utox negative - EtoH level <10 -Thiamine and Folate daily -Maintain seizure precautions, aspiration and fall precautions - Medications Seizure Patient with history of epilepsy as well as EtOH withdrawal seizures. He reports his seizures with this admission were consistent with withdrawal seizure. -Management for alcohol withdrawal as above -Continue Lamictal 150mg po BID Essential Hypertension Blood pressure elevated in setting of EtOH withdrawal -Continue Clonidine 0.2mg po BID -Continue Lisinopril 20mg po daily Alcohol liver disease Patient with evidence of liver dysfunction to include mild hyponatremia, thrombocytopenia as well a elevation of AST, ALT, AP and Tbili -INR= 1.1 -Continue to monitor LFTs - viral hepatitis panel pending - liver Us: Mild nodularity of the surface contour suggests early morphologic change of cirrhosis. Megaloblastic Anemia - B12 and folate wnl - Baseline 11-13; 13.7 on admission - MCV= 110 - Continue to trend F/E/N - LR at 80mL/hr x 2L, Ppx - Lovanox 30mg Code - Full (2) Seizure: (3) Essential hypertension: (4) Alcoholic liver disease: Admission and Anticipated Discharge Date Admission Date: November 16, 2021 Subjective 46 year old male with a past medical history of alcoholism with complicated wi thdrawal, DTs and withdrawal seizure, epilepsy, and HTN that presented to the ED with alcohol withdrawal seizure. Pt presented with his father after having 3 seizures at home. Of note he was admitted from 11/11-11/14 for alcohol withdrawal. States his last drink was Friday (11/12) and prior to that was drinking a fifth of vodka or Mark Roa every 2 days. Has some minor tremors in his hands this morning, which he states have improved from prior days. Denies nausea, vomiting, fever/chills, chest pain, dyspnea. Discussed with him again his willingness to go to rehab or attend AA meetings after discharge. He has concerns as to whether this would be feasible for him due to his job at [employer] where his shifts times are unpredictable. Review of Systems Review of Systems: As per HPI Physical Exam Physical Exam: Constitutional: well-appearing, no acute distress HEENT: NCAT, no conjunctival injection CV: regular rhythm, no murmur appreciated, extremities well-perfused, no LE edema Resp: CTABL, no wheezes/rales/rhonchi appreciated, no increased work of breathing GI: soft, nondistended, nontender, BS normoactive MSK: no gross deformities appreciated Skin: warm, dry, no rash appreciated Neuro: alert, oriented, no focal neurologic deficit appreciated, mild tremor in hands B/L Results & Data Results & Data ([facility]) Vital Signs (Past 12 Hours) Vital Signs Temp Pulse Resp BP 11/18/21 03:00 94 H 23 11/18/21 03:00 147/98 H 11/18/21 00:00 76 11/18/21 00:00 94 H 22 11/18/21 00:00 112/71 11/17/21 22:00 95 H 27 H 11/17/21 22:00 148/93 H 11/17/21 21:00 95 H 26 H 11/17/21 21:00 126/71 11/17/21 20:00 36.7 C 92 H 29 H 11/17/21 20:00 122/74 11/17/21 19:54 160/114 H 11/17/21 19:54 92 H 28 H
[2021-11-18 07:44] LABS: HBSAG NON-REACTIVE (NON-REACTIVE); Hepatitis A Antibody IgM NON-REACTIVE (NON-REACTIVE); Hepatitis B Core Antibody IgM NON-REACTIVE (NON-REACTIVE)
[2021-11-18] MEDS: FERROUS SULFATE 325 MG TAB PO SCH (08:19)
[2021-11-18] MEDS: MULTIVITAMIN TAB PO SCH (08:20)
[2021-11-18] MEDS: ASCORBIC ACID 500 MG TAB PO SCH (08:20)
[2021-11-18] MEDS: cloNIDine HCL 0.1 MG TAB PO SCH (08:20)
[2021-11-18] MEDS: lamoTRIgine 100 MG TAB PO SCH (08:20)
[2021-11-18] MEDS: ENOXAPARIN INJ 30 MG/0.3 ML SYR SQ SCH (08:20)
[2021-11-18] MEDS: lisinopril 20 MG TAB PO SCH (08:20)
[2021-11-18] MEDS: THIAMINE HCL 100 MG TAB PO SCH (08:20)
[2021-11-18] MEDS: FOLIC ACID 1 MG in SYRINGE 9.8 ML IV SCH (08:21)
[2021-11-18 10:37] LABS: Hematocrit (blood only) 35.4 % (40.1-51.0); Hemoglobin 12.1 g/dl (14.0-18.0); Mean Corpuscular Hemoglobin 38.4 pg (25.0-34.0); Mean Corpuscular Hgb Conc 34.2 g/dL (32.0-36.0); Mean Corpuscular Volume 112.4 fL (80.0-100.0); Platelet Count 119 K/uL (130-400); RDW Coefficient of Variation 12.4 % (11.5-14.5); RDW Standard Deviation 51.2 fL (36.4-46.3); Red Blood Count 3.15 M/uL (4.63-6.08); White Blood Count 3.49 K/ul (4.8-10.8)
[2021-11-18 10:55] LABS: Albumin Level 3.4 gm/dl (3.4-5.0); BUN Creatinine Ratio 8.7 (10-20); Bilirubin,Total 1.2 mg/dl (0.2-1.0); Calcium 9.2 mg/dl (8.5-10.1); Creatinine Clr Calc Pharmacy 145.5 ml/min; Est GFR (African American) 133.8 ml/min; Est GFR (Non-African American) 115.5 ml/min; Globulin 3.5 gm/dl (2.5-4.0); Magnesium 1.7 mg/dl (1.7-2.4); Potassium 3.5 mmol/L (3.5-5.1); Total Protein 6.9 gm/dl (6.0-8.3)
--- NOTE | 2021-11-18 13:34 | Discharge Summary ---
Date of Service November 18, 2021 Admission HPI Per Admitting Provider Freddie Ahuja is a 46yo male with history of alcoholism with complicated withdrawal, DTs and withdrawal seizure, epilepsy and HTN presenting with EtOH withdrawal seizure. Patient was admitted from 11/11/21/ - 11/14/21 with EtOH withdrawal. He was managed with Ativan and Gabapentin and discharged home in stable condition. He reports he has not had any alcohol for almost 1 week. This evening he had a tonic clonic seizure lasting several minutes last evening around 17:00. He had another seizure this AM at 02:00 and another short one on the car ride to the ER. Had a brief witnessed seizure in the ER which resolved with IV Ativan. Patient drinks appx 1/5 of liquor daily for "a long time". He states he has quit drinking in the past but does not recall when. He has never participated in a rehab program or AA. He denies tobacco or recreational drug use. Denies fever, chills, cough, SOB, CP, abdominal pain, nausea, vomiting, diarrhea or constipation. No additional complaints. ER Course: Ativan 2mg IV x 2 doses, NSS 500mL Admission Exam Per Admitting Provider General: patient resting comfortably, NAD, non-toxic in appearance, AA&O x 4 Skin: warm, dry, intact, scattered bruising on arms, legs and hands with several healing abrasions HEENT: NC/AT, PERRL, EOMI, anicteric sclera, conjunctiva without injection, external ear normal to inspection and nontender, nares patent, moist mucus membranes, dentition intact, no oropharyngeal lesions, neck supple, trachea midline, no LAD, no thyromegaly, no JVD Heart: +S1/S2, regular, tachycardic, no m/r/g Lungs: equal air entry bilaterally, no rales/rhonchi/wheezes Abd: +BS, soft, NT/ND, no masses/organomegaly/ascites Ext: warm, 2+ pulses in UE/LE bilaterally, no clubbing/cyanosis or edema Neuro: tremulous, nonfocal, patient AA&O x 4, speech intact, no facial droop, moving all extremities on command with equal strength 5/5 Principal Diagnosis Alcohol Withdrawal Seizure Discharge Exam Constitutional: well-appearing, no acute distress HEENT: NCAT, no conjunctival injection CV: regular rhythm, no murmur appreciated, extremities well-perfused, no LE edema Resp: CTABL, no wheezes/rales/rhonchi appreciated, no increased work of breathing GI: soft, nondistended, nontender, BS normoactive MSK: no gross deformities appreciated Skin: warm, dry, no rash appreciated Neuro: alert, oriented, no focal neurologic deficit appreciated, mild tremor in hands B/L Discharge Data Allergies Allergy/AdvReac Type Severity Reaction Status Date / Time No Known Allergies Allergy Mild Verified 11/11/21 20:10 Consultations 11/16/21 05:50 ED Decision to Admit Stat 11/16/21 08:40 Consult Patient Care Associate Routine Ordered Studies 11/16/21 07:08 US liver Stat ULTRASOUND RIGHT UPPER QUADRANT ABDOMEN CLINICAL HISTORY: Alcoholic steatosis. COMPARISON STUDY: Abdominal ultrasound dated 01/14/2021 TECHNIQUE: Real-time, grayscale, and color flow sonography of the right upper quadrant of the abdomen was performed. Images are reviewed in the transverse and longitudinal planes. FINDINGS: Liver: The liver is enlarged and demonstrates heterogeneous increased echotexture indicating steatosis. Nodularity of the hepatic surface contour suggests early morphologic changes of cirrhosis. There is no intrahepatic biliary ductal dilatation. The main portal vein is patent. Gallbladder: A tiny gallstone is incidentally noted. The gallbladder is otherwise normal in appearance. There is no gallbladder wall thickening or pericholecystic fluid. A sonographic Campbell's sign is reportedly absent. The common bile duct measures up to 0.4 cm in diameter. Pancreas: Visualized portions of the pancreatic head and body are normal in appearance. Right kidney: Survey images of the right kidney demonstrate normal size and echotexture. There is no hydronephrosis. Ascites: None. IMPRESSION: 1. The liver is enlarged and steatotic. 2. Mild nodularity of the surface contour suggests early morphologic change of cirrhosis. 3. A tiny gallstone is incidentally noted. Hospital Course (1) Alcohol withdrawal seizure: 46yo male with longstanding history of EtOH abuse, prior withdrawal seizures and DTs presents with seizure x 3 prior to arrival as well as brief seizure witnessed in the ER. Believed to be secondary to EtOH withdrawal. Alcohol withdrawal seizure Initially admitted to ICU for management of alcohol withdrawal seizures -Placed on AWSS with IV Ativan and with time symptoms slowly improved; last required Ativan 36 hours prior to discharge -Librium taper - hepatic dosing -Banana bag received -B12, Folate and Mg levels wnl -Utox negative - EtoH level <10 -Was supplemented with thiamine and Folate daily, will continue upon discharge - will be discharged with 5mg Librium for 5 days - Could consider adding Naltrexone as an outpatient in combination with counseling. Was not started as an inpatient due to elevated LFTs Seizure Patient with history of epilepsy as well as EtOH withdrawal seizures. He reports his seizures with this admission were consistent with withdrawal seizure. -Management for alcohol withdrawal as above -Continue Lamictal 150mg po BID Essential Hypertension Blood pressure elevated in setting of EtOH withdrawal -Continue Clonidine 0.2mg po BID -Continue Lisinopril 20mg po daily Alcohol liver disease Patient with evidence of liver dysfunction to include mild hyponatremia, thrombocytopenia as well a elevation of AST, ALT, AP and Tbili -INR= 1.1 -Will need to f/u CMP as an outpatient - viral hepatitis panel pending - liver Us: Mild nodularity of the surface contour suggests early morphologic change of cirrhosis. Megaloblastic Anemia - B12 and folate wnl - Baseline 11-13; 13.7 on admission - MCV= 110 - Will need f/u CBC as an outpatient F/E/N - Received LR at 80mL/hr x 2L, Ppx - Lovanox 30mg Code - Full (2) Seizure: (3) Essential hypertension: (4) Alcoholic liver disease: Total Time Total Time Spent Total Time Spent (In Minutes): 30 Discharge Plan Discharge Items Patient Disposition: Home - Self-Care Reason For Visit: ETOH WITHDRAWAL, SEIZURE Discharge Diagnosis: Alcohol Withdrawal Seizure Activity: Resume your previous activity Non-emergency contact: Primary Care Provider Call non-emergency contact if: you have any medication questions Follow-up/Referrals: Luis Antonio Guevara [Primary Care Provider] - 11/22/21 11:00 am Diet: Regular Addtl Attending Provider Instructions: You were admitted to the hospital for alcohol withdrawal seizure. You were treated with a mediation called Ativan while you were in the hospital to help prevent more seizures. You were also given fluids in addition to a few different vitamins. We are going to discharge you with a mediation called Librium. Take the Librium, once a day for the next 5 days. You should also continue to take a multivitamin, thiamine, in addition to the folic acid that you have already been taking at home. It is very important you do not drink alcohol. We discussed options moving forward to help you to stop drinking alcohol. Counseling, in addition to a medication called Naltrexone, could be a helpful with avoiding alcohol. We did not start you on this medication because your liver enzymes were elevated, but this is something you could discuss with your primary care provider during your follow up appointment. A discharge summary will be sent to your primary care physician to ensure continuity of care. Please bring this discharge summary with you to your next office appointment so that your provider can review it at that time. Follow-up appointments: We have requested a follow-up appointment with your primary care physician within one week of discharge. Please call their office if you do not hear from them. Keep all your follow-up appointments as already scheduled. If you cannot make an appointment, notify your provider. Pending Studies at Discharge: Yes (Hepatitis Panel ) Stand-Alone Forms: My [facility] Medications and DC Order Prescriptions: New chlordiazepoxide HCl 5 mg Capsule 5 mg PO DAILY Qty: 2 0RF Continued lamotrigine [Lamictal] 150 mg tablet 150 mg PO BID potassium chloride 10 mEq tablet extended release 10 meq PO DAILY Qty: 30 0RF Rx Instructions: LAST REFILL 02/2021 clonidine HCl 0.1 mg tablet 0.2 mg PO BID lisinopril 20 mg tablet 20 mg PO DAILY folic acid 1 mg tablet 1 mg PO DAILY Discontinued gabapentin 300 mg capsule 300 mg PO UD Qty: 3 0RF Rx Instructions: 2 pills at once on 11/15, one on 11/16 naltrexone 50 mg tablet 50 mg PO DAILY Qty: 7 0RF Discharge Orders: Discharge Order (Routine); Ordered 11/18/21 Ordered By: Xiomara Castillo Admission Data Admit Date/Time: 11/16/21 08:17 Attending Provider: Pamela Connolly Admit Provider: Danita Urbano Primary Care Provider: Luis Antonio Guevara Other Providers: Amol Norton ; Danita Urbano ; Humberto Gramajo Other Interventions: Discharge Summary Assessment (RN) Last Done: 11/18/21 14:02 Supervising Physician Co-Signing Physician Notes Resident Physician Supervision Note: I independently interviewed and examined the patient and verified the simms history and physical, reviewed labs and image studies and agree with resident findings and care plan. Resident Activity Tracking Resident Involvement: Resident Care Provided Care Provided: Adult [facility]
[2021-11-19] MEDS ORDERED: chlordiazePOXIDE HCl 5 MG CAP PO SCH ×2 (06:15→10:00)
== END 2021-11-18 15:08 | disposition home or self-care (01) | DRG 897 ==
LOC: ED 03:19 → 2S 08:05 → INTOOBSV 08:17 → SUATTDRO 08:17 → 2S 08:17 → 1E 09:07 → 2S 11-18 06:15

== ENCOUNTER 2022-02-10 17:35 | Inpatient (IN) ==
[2022-02-10] MEDS ORDERED: LORazepam 1 MG/1 ML SYR IV STA ×2 (17:58→20:55)
[2022-02-10] MEDS ORDERED: ONDANSETRON INJ 2 MG/ML 2 ML VIAL IV STA (17:58)
[2022-02-10] MEDS ORDERED: SODIUM CHLORIDE 0.9% 1000ML 1,000 ML IV ONE (17:58)
--- NOTE | 2022-02-10 18:07 | Emergency Department Note ---
Impression & Plan Alcohol withdrawal, Hypomagnesemia, Nausea ED Provider Note Provider: Kuldeep Benedict MD DATE OF SERVICE: 02/10/2022 CHIEF COMPLAINT: Shaking, intractable nausea and vomiting HISTORY OF PRESENT ILLNESS: Patient is a 46-year-old gentleman history of alcohol use, alcohol withdrawal including possible seizure presenting today for evaluation with his father. Evidently became intoxicated and was shaking had a fall and possible seizure overnight. Was seen here early this morning and had a head imaging as well as repair of a laceration of the right eye brow . Was taken home by his father but after an hour or so began develop intractable nausea and vomiting is very shaky now. Denies any alcohol or drug use today. Denies any chest pain or recent illness or cough or cold. Denies shortness of breath. Denies abdominal pain. Denies diarrhea. Patient's is unclear if he has had an issue with shaking like this before. No new trauma reported or syncope. No seizure-like activity but just diffuse tremors reported. No nausea medicine at home. REVIEW OF SYSTEMS: A total of 10 review of systems was obtained and negative except as stated above in the HPI. PAST MEDICAL HISTORY: As noted above MEDICATIONS: Patient states Lamictal and lisinopril SOCIAL HISTORY: Patient is a history of alcohol abuse PHYSICAL EXAM: GENERAL: alert and oriented Diaphoretic and tremulous on the bed Head: Patient with some contusion around the right eye and a laceration sutured above the right eye. EYES: No injection, discharge or icterus. PERRL, EOMI. NECK: Trachea midline. No posterior neck tenderness. ENT: Mucous membranes pink and moist. LUNGS: Airway patent. No retractions. Breath sounds clear with good air entry bilaterally. HEART: Regular rate and rhythm. No chest wall tenderness ABDOMEN: Soft and non-tender, without guarding or rebound. SKIN: Acyanotic, warm, dry, without rashes EXTREMITIES: Without swelling, tenderness or deformity NEUROLOGICAL: No facial droop. Tremulous in all extremities. Moving all extremities. No significant aphasia but states at times he has a hard time remembering things. EK bpm normal sinus rhythm. No PVC or PAC. No acute ST segment elevation or depression with some respiratory artifact. QTc 490. CONTINUOUS CARDIAC MONITORING: was ordered and showed a heart rate of 80s-100s bpm in normal sinus rhythm to sinus tachycardia Patient's laboratory studies and imaging reviewed. Differential includes Alcohol intoxication, toxicologic, infection, hypoglycemia, electrolyte abnormalities, cardiac sources, intracerebral event, neurologic, trauma, as well as other pathologies. IMPRESSION/MEDICAL DECISION MAKING: Fall last night but had imaging. No new trauma. Denies any headache. Do not feel any new head imaging at this time. Concern for possible alcohol withdrawal. Is quite tremulous. Significant nausea. Benign abdomen however and doubt other acute intra-abdominal pathology such as appendicitis, cholecystitis, or perforation. Blood work without anemia or leukocytosis. Hypomagnesemia noted with a minimally elevated bilirubin. Slight transaminitis. Alcohol is downtrending from earlier today. No evidence of pancreatitis with a normal lipase today. Anion gap likely secondary to alcohol intake. Negative COVID test. Given some Ativan here and IV fluids as well as magnesium and a banana bag. Chronic thrombocytopenia likely given the history and setting related to alcohol use. Given his hypertension, tremulousness, tachycardia with the alcohol use history believe he is in withdrawal. Given additional Ativan. Discussed with him staying for further care. Hospitalist contacted. DIAGNOSIS: Alcohol withdrawal, nausea, hypomagnesemia DISPOSITION: Hospitalist will evaluate Patient was agreeable with this plan. Preliminary Findings Only See Final Report For Complete Findings CT HEAD: No acute intracranial hemorrhage. No midline shift or mass effect. The territorial thomas-white matter differentiation is maintained throughout. Age-related cerebral volume loss. Periventricular and subcortical white matter hypoattenuation, consistent with chronic microangiopathy. Right periorbital soft tissue swelling. Radiologist: Mo Poe MD Study ready at 20:51 and initial results transmitted at 20:53 Critical Care I have personally spent 31 minutes of critical care time in the direct management of this patient. This includes bedside care, interpretation of diagnostic studies, and testing, discussion with consultants, patient, and family members, and other required patient management activities. These 31 minutes is in excess of all separately billable procedures. Past Med/Surg History Medical History Alcoholism Delirium tremens Essential hypertension Seizures (~11/16/21) Surgical History No pertinent past surgical history Family History Father Skin cancer of face Denies family history of Alcoholism Seizure disorder Social History Smoking Status: Never smoker Cigarettes Per Day: 10; Hx Alcohol Use: Yes Alcohol type: hard liquor Alcohol type Comment: DAILY consumption, mixture of bottle of wine, bottle of liquor, and/or beer Hx Substance Use: No Preferred Language: [place] Communication Ability: Effective Mastercam Programmer Required: No Beliefs That Will Affect Care: None marital status: Single marital status details: x 2 Current Living Situation: Alone Current Living Situation Comment: [place]/ [place] current occupational status: 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[employer] How many Children do You have: 0 Feels Safe at Home: Yes Assistive Devices: None Allergies Allergies Allergy/AdvReac Type Severity Reaction Status Date / Time No Known Allergies Allergy Mild Verified 02/10/22 09:24 Home Meds Home Medications Medication Instructions Recorded Confirmed lamotrigine 150 mg tablet 150 mg PO BID 01/13/21 02/10/22 (Lamictal) clonidine HCl 0.1 mg tablet 0.2 mg PO BID 11/11/21 02/10/22 folic acid 1 mg tablet 1 mg PO DAILY 11/11/21 02/10/22 lisinopril 20 mg tablet 20 mg PO DAILY 11/11/21 02/10/22 Results & Data (ED) Vital Signs Vital Signs - 24 hr 02/10/22 17:35 02/10/22 17:49 02/10/22 18:00 Temperature 36 C L Temperature Source Temporal Artery Scan Pulse Rate 90 87 Pulse Rate from SpO2 Sensor Respiratory Rate 18 20 Respiratory Effort / Characteristics Non-Labored Respiratory Depth Normal Blood Pressure 162/96 H 175/101 H Blood Pressure Mean 118 125 Pulse Oximetry 98 98 97 Oxygen Delivery Method Room Air Room Air Room Air Sepsis Recent Fever Within 48 Hours No Sepsis New/Unexplained Change in Mental Status No Sepsis Action Taken by Nursing No Action Required 02/10/22 18:00 02/10/22 18:10 02/10/22 18:30 Temperature Temperature Source Pulse Rate 86 Pulse Rate from SpO2 Sensor 81 83 Respiratory Rate 18 Respiratory Effort / Characteristics Respiratory Depth Blood Pressure 157/96 H Blood Pressure Mean 116 Pulse Oximetry 96 96 94 Oxygen Delivery Method Room Air Sepsis Recent Fever Within 48 Hours Sepsis New/Unexplained Change in Mental Status Sepsis Action Taken by Nursing 02/10/22 19:00 02/10/22 19:30 02/10/22 20:00 Temperature Temperature Source Pulse Rate 92 H 90 Pulse Rate from SpO2 Sensor 92 H 90 Respiratory Rate 21 26 H Respiratory Effort / Characteristics Respiratory Depth Blood Pressure 172/101 H 183/96 H 183/102 H Blood Pressure Mean 124 125 129 Pulse Oximetry 95 94 Oxygen Delivery Method Sepsis Recent Fever Within 48 Hours Sepsis New/Unexplained Change in Mental Status Sepsis Action Taken by Nursing 02/10/22 20:03 02/10/22 20:48 02/10/22 21:00 Temperature Temperature Source Pulse Rate 83 94 H 92 H Pulse Rate from SpO2 Sensor 86 93 H Respiratory Rate 14 19 26 H Respiratory Effort / Characteristics Respiratory Depth Blood Pressure 192/106 H 186/111 H 176/106 H Blood Pressure Mean 134 136 129 Pulse Oximetry 98 97 Oxygen Delivery Method Sepsis Recent Fever Within 48 Hours Sepsis New/Unexplained Change in Mental Status Sepsis Action Taken by Nursing 02/10/22 21:30 02/10/22 21:31 Temperature Temperature Source Pulse Rate 107 H 96 H Pulse Rate from SpO2 Sensor 97 H Respiratory Rate 28 H 22 Respiratory Effort / Characteristics Respiratory Depth Blood Pressure 213/125 H Blood Pressure Mean 154 Pulse Oximetry 95 Oxygen Delivery Method Sepsis Recent Fever Within 48 Hours Sepsis New/Unexplained Change in Mental Status Sepsis Action Taken by Nursing Laboratory Data Result diagrams: 02/10/22 17:56 02/10/22 17:56 Lab Results 02/10/22 02/10/22 02/10/22 Range/Units 17:56 17:56 17:56 WBC 5.10 (4.8-10.8) K/ul RBC 4.08 L (4.63-6.08) M/uL Hgb 14.2 (14.0-18.0) g/dl Hct 39.7 L (40.1-51.0) % MCV 97.3 (80.0-100.0) fL MCH 34.8 H (25.0-34.0) pg MCHC 35.8 (32.0-36.0) g/dL RDW Std Deviation 52.3 H (36.4-46.3) fL RDW Coeff of Amena 14.5 (11.5-14.5) % Plt Count 91 L (130-400) K/uL MPV 9.4 (9.4-12.4) fL Immature Gran % (Auto) 0.4 % Neut % (Auto) 80.0 % Lymph % (Auto) 12.9 % [place] % (Auto) 5.9 % Eos % (Auto) 0.0 % Baso % (Auto) 0.8 % Neut # (Auto) 4.08 (1.4-6.5) K/uL Lymph # (Auto) 0.66 L (1.2-3.4) K/uL [place] # (Auto) 0.30 (0.24-0.82) K/uL Eos # (Auto) 0.00 (0-0.50) K/uL Baso # (Auto) 0.04 (0-0.2) K/uL Immature Gran # (Auto) 0.02 (0.00-0.02) K/uL Platelet Estimate Decreased L (Normal) Sodium 140 (136-145) mmol/L Potassium 4.0 (3.5-5.1) mmol/L Chloride 101 (98-107) mmol/L Carbon Dioxide 21 (21-32) mmol/L Anion Gap 18 H (3-11) BUN 15 (6-23) mg/dl Creatinine 0.71 (0.6-1.4) mg/dl Est Cr Clr Drug Dosing Not Reportable Est GFR ( Amer) 132.3 ml/min Est GFR (Non-Af Amer) 114.1 ml/min BUN/Creatinine Ratio 21.1 H (10-20) Glucose 107 H (70-99(Fasting)) mg/dl Calcium 9.0 (8.5-10.1) mg/dl Magnesium 1.5 L (1.7-2.4) mg/dl Total Bilirubin 2.1 H D (0.2-1.0) mg/dl AST 122 H (13-39) U/L ALT 63 H (7-52) U/L Alkaline Phosphatase 142 H (34-104) U/L Troponin I High Sens 6.2 (0-20) pg/ml Total Protein 8.6 H (6.0-8.3) gm/dl Albumin 4.6 (3.4-5.0) gm/dl Globulin 4.0 (2.5-4.0) gm/dl Albumin/Globulin Ratio 1.1 (0.9-2) Lipase 20 (11-82) U/L TSH 0.785 (0.300-4.500) uIu/ml Ethyl Alcohol mg/dL (<10.0) mg/dl SARS-CoV-2, RNA, NAAT (NEGATIVE) 02/10/22 02/10/22 Range/Units 17:56 18:33 WBC (4.8-10.8) K/ul RBC (4.63-6.08) M/uL Hgb (14.0-18.0) g/dl Hct (40.1-51.0) % MCV (80.0-100.0) fL MCH (25.0-34.0) pg MCHC (32.0-36.0) g/dL RDW Std Deviation (36.4-46.3) fL RDW Coeff of Amena (11.5-14.5) % Plt Count (130-400) K/uL MPV (9.4-12.4) fL Immature Gran % (Auto) % Neut % (Auto) % Lymph % (Auto) % [place] % (Auto) % Eos % (Auto) % Baso % (Auto) % Neut # (Auto) (1.4-6.5) K/uL Lymph # (Auto) (1.2-3.4) K/uL [place] # (Auto) (0.24-0.82) K/uL Eos # (Auto) (0-0.50) K/uL Baso # (Auto) (0-0.2) K/uL Immature Gran # (Auto) (0.00-0.02) K/uL Platelet Estimate (Normal) Sodium (136-145) mmol/L Potassium (3.5-5.1) mmol/L Chloride (98-107) mmol/L Carbon Dioxide (21-32) mmol/L Anion Gap (3-11) BUN (6-23) mg/dl Creatinine (0.6-1.4) mg/dl Est Cr Clr Drug Dosing Est GFR ( Amer) ml/min Est GFR (Non-Af Amer) ml/min BUN/Creatinine Ratio (10-20) Glucose (70-99(Fasting)) mg/dl Calcium (8.5-10.1) mg/dl Magnesium (1.7-2.4) mg/dl Total Bilirubin (0.2-1.0) mg/dl AST (13-39) U/L ALT (7-52) U/L Alkaline Phosphatase (34-104) U/L Troponin I High Sens (0-20) pg/ml Total Protein (6.0-8.3) gm/dl Albumin (3.4-5.0) gm/dl Globulin (2.5-4.0) gm/dl Albumin/Globulin Ratio (0.9-2) Lipase (11-82) U/L TSH (0.300-4.500) uIu/ml Ethyl Alcohol mg/dL 102.0 H (<10.0) mg/dl SARS-CoV-2, RNA, NAAT NEGATIVE (NEGATIVE) Administered Medications Lamotrigine (Lamotrigine 100 Mg Tab) 150 mg PO BID ROBIN Stop: 03/12/22 21:59 Last Admin: 02/10/22 22:25 Dose: 150 mg Documented By: JONAH Discontinued Medications Clonidine HCl (Clonidine Hcl 0.1 Mg Tab) 0.1 mg PO NOW ONE Stop: 02/10/22 21:46 Last Admin: 02/10/22 22:24 Dose: 0.1 mg Documented By: JONAH Diazepam (Diazepam 5 Mg Tablet) 10 mg PO NOW ONE Stop: 02/10/22 21:57 Last Admin: 02/10/22 22:24 Dose: 10 mg Documented By: JONAH Sodium Chloride (Nss 1000ml) 1,000 mls @ 999 mls/hr IV .Q1H1M ONE Stop: 02/10/22 18:58 Last Infusion: 02/10/22 20:23 Dose: 0 mls/hr Documented By: Admin: 02/10/22 18:13 Dose: 999 mls/hr Documented By: KENROY Magnesium Sulfate/Dextrose (Magnesium Sulfate / D5w) 1 gm in 100 mls @ 200 mls/hr IV Q30M ROBIN Stop: 02/10/22 20:29 Last Infusion: 02/10/22 20:23 Dose: 0 mls/hr Documented By: Admin: 02/10/22 19:58 Dose: 200 mls/hr Documented By: Infusion: 02/10/22 19:54 Dose: 200 mls/hr Documented By: Admin: 02/10/22 19:24 Dose: 200 mls/hr Documented By: JONAH Multivitamins 10 ml/ Thiamine HCl 100 mg/ Folic Acid 1 mg/Sodium Chloride 1,011.2 mls @ 1,011.2 mls/hr IV .Q1H ONE Stop: 02/10/22 20:16 Last Infusion: 02/10/22 22:15 Dose: 0 mls/hr Documented By: Admin: 02/10/22 19:58 Dose: 1,011.2 mls/hr Documented By: JONAH Lorazepam (Lorazepam 1 Mg/1 Ml Syr) 2 mg IV NOW STA; Protocol Stop: 02/10/22 17:59 Last Admin: 02/10/22 18:12 Dose: 2 mg Documented By: KENROY Lorazepam (Lorazepam 1 Mg/1 Ml Syr) 2 mg IV NOW STA; Protocol Stop: 02/10/22 20:56 Last Admin: 02/10/22 22:24 Dose: 2 mg Documented By: JONAH Ondansetron HCl (Ondansetron Inj 2 Mg/Ml 2 Ml Vial) 4 mg IV NOW STA Stop: 02/10/22 17:59 Last Admin: 02/10/22 18:09 Dose: 4 mg Documented By: KENROY Discharge Plan Visit Data Chief Complaint: Seizure Stated Complaint: sEIZURES ED Provider: Kuldeep Benedict Discharge Problem: Alcohol withdrawal, Hypomagnesemia, Nausea Patient Disposition: Admitted As Inpatient Discharge Instructions Interventions: ED Discharge Assessment Last Done: 02/10/22 22:49
[2022-02-10 18:27] LABS: Basophils # (auto) 0.04 K/uL (0-0.2); Basophils % (auto) 0.8 %; Hematocrit (blood only) 39.7 % (40.1-51.0); Hemoglobin 14.2 g/dl (14.0-18.0); Immature Granulocytes # (auto) 0.02 K/uL (0.00-0.02); Immature Granulocytes % (auto) 0.4 %; Lymphocytes # (auto) 0.66 K/uL (1.2-3.4); Lymphocytes % (auto) 12.9 %; Mean Corpuscular Hemoglobin 34.8 pg (25.0-34.0); Mean Corpuscular Hgb Conc 35.8 g/dL (32.0-36.0); Mean Corpuscular Volume 97.3 fL (80.0-100.0); Mean Platelet Volume 9.4 fL (9.4-12.4); Monocytes % (auto) 5.9 %; Neutrophils # (auto) 4.08 K/uL (1.4-6.5); Platelet Count 91 K/uL (130-400); Platelet Estimate Decreased (Normal); RDW Coefficient of Variation 14.5 % (11.5-14.5); RDW Standard Deviation 52.3 fL (36.4-46.3); Red Blood Count 4.08 M/uL (4.63-6.08)
[2022-02-10 18:29] LABS: Anion Gap 18 (3-11); Bilirubin,Total 2.1 mg/dl (0.2-1.0); Blood Urea Nitrogen 15 mg/dl (6-23); Carbon Dioxide 21 mmol/L (21-32); Chloride 101 mmol/L (98-107); Est GFR (African American) 132.3 ml/min; Est GFR (Non-African American) 114.1 ml/min; Sodium 140 mmol/L (136-145)
[2022-02-10 18:30] LABS: Alanine Aminotransferase 63 U/L (7-52); Albumin Globulin Ratio 1.1 (0.9-2); Albumin Level 4.6 gm/dl (3.4-5.0); Alkaline Phosphatase 142 U/L (34-104); Aspartate Aminotransferase 122 U/L (13-39); BUN Creatinine Ratio 21.1 (10-20); Glucose 107 mg/dl (70-99(Fasting)); Lipase 20 U/L (11-82); Magnesium 1.5 mg/dl (1.7-2.4); Total Protein 8.6 gm/dl (6.0-8.3)
[2022-02-10 18:41] LABS: Troponin I High Sensitivity 6.2 pg/ml (0-20)
[2022-02-10] MEDS ORDERED: MULTI-VITAMIN INFUSION 10 ML, THIAMINE HCL 100 MG, FOLIC ACID 1 MG in SODIUM CHLORIDE 0... IV ONE (19:17)
[2022-02-10] MEDS: MAGNESIUM SULFATE / D5W 1 GM/100 ML BAG IV SCH ×3 (19:24→23:56)
[2022-02-10] MEDS ORDERED: cloNIDine HCL 0.1 MG TAB PO ONE (21:45)
--- NOTE | 2022-02-10 21:47 | History & Physical Report ---
Date of Service February 10, 2022 Assessment & Plan (1) Alcohol withdrawal: Plan: 46yo male with alcoholism presenting with EtOH withdrawal. Patient drinks approximately 8-10 drinks daily. Last drink this AM 02/10/22. EtOH diajs=927. Patient is hypertensive, tremulous and tachycardic. Patient with elevation of LFTs. Tbili=2.1, GG=536, WYE=599, ALT=63 - all values near baseline -Admit to PCU -AWSS per protocol -Valium 10mg PO now -Librium taper per protocol -Thiamine 100mg po daily -Folate 1mg po daily -Check INR - has been normal on previous occasions, calculate Maddrey Discriminate Function (2) CHI (closed head injury): Plan: Patient fell and struck his head. He had a right supraorbital laceration that was repaired in the ER. CT of the head at the time of the injury as well as rep eat CT today with no acute intracranial process, no bleed. -Fall precautions (3) High anion gap metabolic acidosis: Plan: AG=18. Serum HCO3 is normal at 21. Renal function is within normal limits. Patient has had AGMA in the past. -Check VBG -Check Lactate -Repeat chemistry in AM (4) Essential hypertension: Plan: Blood pressure acutely elevated in setting of EtOH withdrawal -Continue Clonidine 0.2mg po BID -Continue Lisinopril 20mg po daily -EtOH withdrawal treatment with Ativan/Librium -Monitor (5) Seizure: Plan: Patient with seizure disorder as well as EtOH withdrawal seizures -Continue Lamictal 150mg po BID -Management of EtOH withdrawal (6) Hypomagnesemia: Plan: Mg=1.5 -Repletion with 2gm IV -Repeat level in AM F/E/N - LR at 125mL/hr x 1 liter, monitor electrolyte and replete as needed, clear liquid diet for now Ppx - Low risk for DVT Code - Full Dispo - Admit to PCU History of Present Illness Chief Complaint: EtOH withdrawal Primary Care Provider: Luis Antonio Beltrejanice Llanosjennadine is a 46yo male with history of alcoholism with complicated withdrawals, DTs and withdrawal seizures, epilepsy and HTN presenting with EtOH withdrawal. Patient was seen in the ER earlier today after suffering a seizure at home. He reports after the seizure he got up and walked outside and sustained a ground level fall striking his right face on the sidewalk. He was seen in in the ER and had a CT of the brain, facial bones and C-sine that were unremarkable. His EtOH level was >300. He had his right eyebrow laceration repaired and he was discharged home in stable condition. Patient got home around 11:00 this AM. His father reports after getting home he developed significant tremor, nausea and vomiting. His shaking continued to worsen which prompted them to come to the ER. Upon arrival here is he afebrile, hypertensive, tremulous. He had a brief witnessed episode of unresponsiveness in the ER. Staff reports that his eyes rolled back and he wasn't answering questions. The episode lasted only a few moments then patient came out of it. During my exam patient is tremulous. He denies headache, visual disturbance, chest pain, cough, SOB, abdominal pain, nausea, vomiting, diarrhea or constipation. Patient continues to drink approximately 1/2 of a bottle of [employer] liquor daily (appx 8-10 drinks daily). His last drink was early this AM 02/10/22 prior to arrival to the ER. ER Course: Ativan 2mg IV Zofran 4mg IV NSS x 1L Magnesium x 2gm Banana bag PM meds ordered - Clonidine 0.1mg PO and Lamictal 150mg as well as Valium 10mg po Allergies Allergy/AdvReac Type Severity Reaction Status Date / Time No Known Allergies Allergy Mild Verified 02/10/22 09:24 Home Medications Medication Instructions Recorded Confirmed Type lamotrigine 150 mg tablet 150 mg PO BID 01/13/21 02/10/22 History (Lamictal) clonidine HCl 0.1 mg tablet 0.2 mg PO BID 11/11/21 02/10/22 History folic acid 1 mg tablet 1 mg PO DAILY 11/11/21 02/10/22 History lisinopril 20 mg tablet 20 mg PO DAILY 11/11/21 02/10/22 History chlordiazepoxide HCl 5 mg capsule 5 mg PO DAILY #2 caps 11/18/21 02/10/22 Rx Past Med/Surg History Medical History Alcoholism Delirium tremens Essential hypertension Seizures (~11/16/21) Surgical History No pertinent past surgical history Family History Father Skin cancer of face Denies family history of Alcoholism Seizure disorder Social History Smoking Status: Never smoker Cigarettes Per Day: 10; Hx Alcohol Use: Yes Alcohol type: hard liquor Alcohol type Comment: DAILY consumption, mixture of bottle of wine, bottle of liquor, and/or beer Hx Substance Use: No Preferred Language: Kiswahili Communication Ability: Effective Sales Manager Prearranged Funerals Required: No Beliefs That Will Affect Care: None marital status: Single marital status details: x 2 Current Living Situation: Alone Current Living Situation Comment: lives w/ father in [place] current occupational status: 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[employer] [facility] How many Children do You have: 0 Feels Safe at Home: Yes Assistive Devices: None Review of Systems Review of Systems: All systems reviewed & are unremarkable except as noted in HPI & below Physical Exam Physical Exam: General: patient tremulous, oriented x 4, answers questions appropriately Skin: scattered bruises on forearms and legs HEENT: right supraorbital laceration s/p repair with swelling and ecchymosis, PERRL, EOMI, anicteric sclera, conjunctiva without injection, external ear normal to inspection and nontender, nares patent, moist mucus membranes, dentition intact, no oropharyngeal lesions, neck supple, trachea midline, no LAD, no thyromegaly, no JVD Heart: +S1/S2, regular, tachycardic, no m/r/g Lungs: equal air entry bilaterally, no rales/rhonchi/wheezes Abd: +BS, soft, NT/ND, no masses/organomegaly/ascites Ext: warm, 2+ pulses in UE/LE bilaterally, no clubbing/cyanosis or edema, redness right knee Neuro: nonfocal, patient AA&O x 4, speech intact, no facial droop, moving all extremities on command with equal strength 5/5 Results & Data Results & Data ([place]) Vital Signs (Past 12 Hours) Vital Signs Temp Pulse Resp BP Pulse Ox O2 Del Method 02/10/22 21:30 107 H 28 H 02/10/22 21:00 92 H 26 H 176/106 H 02/10/22 20:48 94 H 19 186/111 H 97 02/10/22 20:03 83 14 192/106 H 98 02/10/22 20:00 90 26 H 183/102 H 02/10/22 19:30 92 H 21 183/96 H 94 02/10/22 19:00 172/101 H 95 02/10/22 18:30 86 18 157/96 H 94 Room Air 02/10/22 18:10 96 02/10/22 18:00 96 02/10/22 18:00 87 20 175/101 H 97 Room Air 02/10/22 17:49 98 Room Air 02/10/22 17:35 36 C L 90 18 162/96 H 98 Room Air Laboratory Results Laboratory Results WBC 5.10 K/ul (4.8-10.8) 02/10/22 17:56 RBC 4.08 M/uL (4.63-6.08) L 02/10/22 17:56 Hgb 14.2 g/dl (14.0-18.0) 02/10/22 17:56 Hct 39.7 % (40.1-51.0) L 02/10/22 17:56 MCV 97.3 fL (80.0-100.0) 02/10/22 17:56 MCH 34.8 pg (25.0-34.0) H 02/10/22 17:56 MCHC 35.8 g/dL (32.0-36.0) 02/10/22 17:56 RDW Std Deviation 52.3 fL (36.4-46.3) H 02/10/22 17:56 RDW Coeff of Amena 14.5 % (11.5-14.5) 02/10/22 17:56 Plt Count 91 K/uL (130-400) L 02/10/22 17:56 MPV 9.4 fL (9.4-12.4) 02/10/22 17:56 Immature Gran % (Auto) 0.4 % 02/10/22 17:56 Neut % (Auto) 80.0 % 02/10/22 17:56 Lymph % (Auto) 12.9 % 02/10/22 17:56 Waller % (Auto) 5.9 % 02/10/22 17:56 Eos % (Auto) 0.0 % 02/10/22 17:56 Baso % (Auto) 0.8 % 02/10/22 17:56 Neut # (Auto) 4.08 K/uL (1.4-6.5) 02/10/22 17:56 Lymph # (Auto) 0.66 K/uL (1.2-3.4) L 02/10/22 17:56 Waller # (Auto) 0.30 K/uL (0.24-0.82) 02/10/22 17:56 Eos # (Auto) 0.00 K/uL (0-0.50) 02/10/22 17:56 Baso # (Auto) 0.04 K/uL (0-0.2) 02/10/22 17:56 Immature Gran # (Auto) 0.02 K/uL (0.00-0.02) 02/10/22 17:56 Platelet Estimate Decreased (Normal) L 02/10/22 17:56 Sodium 140 mmol/L (136-145) 02/10/22 17:56 Potassium 4.0 mmol/L (3.5-5.1) 02/10/22 17:56 Chloride 101 mmol/L (98-107) 02/10/22 17:56 Carbon Dioxide 21 mmol/L (21-32) 02/10/22 17:56 Anion Gap 18 (3-11) H 02/10/22 17:56 BUN 15 mg/dl (6-23) 02/10/22 17:56 Creatinine 0.71 mg/dl (0.6-1.4) 02/10/22 17:56 Est Cr Clr Drug Dosing Not Reportable 02/10/22 17:56 Est GFR ( Amer) 132.3 ml/min 02/10/22 17:56 Est GFR (Non-Af Amer) 114.1 ml/min 02/10/22 17:56 BUN/Creatinine Ratio 21.1 (10-20) H 02/10/22 17:56 Glucose 107 mg/dl (70-99(Fasting)) H 02/10/22 17:56 Calcium 9.0 mg/dl (8.5-10.1) 02/10/22 17:56 Magnesium 1.5 mg/dl (1.7-2.4) L 02/10/22 17:56 Total Bilirubin 2.1 mg/dl (0.2-1.0) H D 02/10/22 17:56 AST 122 U/L (13-39) H 02/10/22 17:56 ALT 63 U/L (7-52) H 02/10/22 17:56 Alkaline Phosphatase 142 U/L (34-104) H 02/10/22 17:56 Troponin I High Sens 6.2 pg/ml (0-20) 02/10/22 17:56 Total Protein 8.6 gm/dl (6.0-8.3) H 02/10/22 17:56 Albumin 4.6 gm/dl (3.4-5.0) 02/10/22 17:56 Globulin 4.0 gm/dl (2.5-4.0) 02/10/22 17:56 Albumin/Globulin Ratio 1.1 (0.9-2) 02/10/22 17:56 Lipase 20 U/L (11-82) 02/10/22 17:56 TSH 0.785 uIu/ml (0.300-4.500) 02/10/22 17:56 Ethyl Alcohol mg/dL 102.0 mg/dl (<10.0) H 02/10/22 17:56 SARS-CoV-2, RNA, NAAT NEGATIVE (NEGATIVE) 02/10/22 18:[address] Head - per STAT rad: No acute intracranial hemorrhage. No midline shift or mass effect. The territorial thomas-white matter differentiation is maintained throughout. Age related cerebral volume loss. Periventricular and subcortical white matter hypoattenuation consistent with chronic microangiopathy. Right periorbital soft tissue swelling. PG Care Time/CCT Total # of Minutes Spent Total Time Spent with Patient: Total time spent is greater than 50% in coordination of care (as documented) at patient's floor/unit and/or counseling patient: Coding Level of Care Code 66807 Initial Inpt Care Lvl 3 Diagnoses Alcohol withdrawal F10.231 Complication of substance-induced condition: with delirium CHI (closed head injury) S09.90XA High anion gap metabolic acidosis E87.2 Essential hypertension I10 Seizure R56.9 Hypomagnesemia E83.42 (1) Alcohol withdrawal Complication of substance-induced condition: with delirium Qualified Code(s): F10.231 - Alcohol dependence with withdrawal delirium
[2022-02-10] MEDS ORDERED: diazePAM 5 MG TABLET PO ONE (21:56)
[2022-02-10] MEDS ORDERED: lamoTRIgine 100 MG TAB PO SCH (22:00)
[2022-02-10] MEDS ORDERED: LACTATED RINGER'S 1,000 ML IV SCH (23:28)
[2022-02-10] MEDS ORDERED: chlordiazePOXIDE ALCOHOL WITHDRAWL 25MG PO STA (23:28)
[2022-02-10] MEDS ORDERED: LORazepam 1 MG TAB PO PRN ×3 (23:28)
[2022-02-10] MEDS ORDERED: Ativan PO Alcohol Withdrawal--Active Protocol PO PRN (23:28)
[2022-02-11] MEDS: chlordiazePOXIDE HCl 25 MG CAP PO SCH ×5 (00:19→23:11)
[2022-02-11 00:34] LABS: Base Excess VBG -7.3 mEq/L; HCO3 VBG 17 mmol/L; Oxygen Saturation VBG 89.8 %; PCO2 VBG 31 mmHg (38-50); PO2 VBG 58 mmHg; pH VBG 7.35 (7.36-7.41)
[2022-02-11 00:54] LABS: INR 1.1 (0.9-1.1); Prothrombin Time 11.6 Seconds (9.0-12.0)
[2022-02-11] MEDS: MAGNESIUM SULFATE / D5W 1 GM/100 ML BAG IV SCH (01:59)
[2022-02-11 06:57] LABS: Hematocrit (blood only) 34.8 % (40.1-51.0); Hemoglobin 12.1 g/dl (14.0-18.0); Mean Corpuscular Hemoglobin 34.1 pg (25.0-34.0); Mean Corpuscular Hgb Conc 34.8 g/dL (32.0-36.0); Mean Platelet Volume 10.5 fL (9.4-12.4); Platelet Count 55 K/uL (130-400); RDW Coefficient of Variation 14.8 % (11.5-14.5); RDW Standard Deviation 53.6 fL (36.4-46.3); Red Blood Count 3.55 M/uL (4.63-6.08); White Blood Count 4.78 K/ul (4.8-10.8)
[2022-02-11 07:05] LABS: BUN Creatinine Ratio 16.9 (10-20); Bilirubin Direct 0.6 mg/dl (0-0.2); Bilirubin,Total 2.2 mg/dl (0.2-1.0); Creatinine Clr Calc Pharmacy 154.5 ml/min; Est GFR (African American) 137.1 ml/min; Est GFR (Non-African American) 118.3 ml/min; Magnesium 2.2 mg/dl (1.7-2.4); Potassium 3.9 mmol/L (3.5-5.1); Total Protein 7.2 gm/dl (6.0-8.3)
[2022-02-11] MEDS: FOLIC ACID 1 MG TAB PO SCH (09:31)
[2022-02-11] MEDS: THIAMINE HCL 100 MG TAB PO SCH (09:31)
[2022-02-11] MEDS: lamoTRIgine 100 MG TAB PO SCH ×2 (09:32→19:54)
[2022-02-11] MEDS: lisinopril 20 MG TAB PO SCH (09:32)
[2022-02-11] MEDS: cloNIDine HCL 0.1 MG TAB PO SCH ×2 (09:32→19:54)
--- NOTE | 2022-02-11 09:58 | CT Scan Report ---
CT OF THE HEAD WITHOUT CONTRAST CLINICAL HISTORY: etoh, nausea, recent fall last night COMPARISON STUDY: Head CT February 10, 2022 and MRI of the brain May 18, 2016. CT DOSE: 614.27 mGy.cm TECHNIQUE: Helical axial images of the head were obtained without IV contrast. Automated exposure con trol was utilized for the study. A dose lowering technique was utilized adhering to the principles o f ALARA. FINDINGS: No acute intracranial hemorrhage, midline shift or mass effect is present. The ventricular system is unremarkable. The basal cisterns are patent. No extra-axial collections are present. There are no findings to suggest acute dural sinus thrombosis or acute territorial infarct. No significant calvarial abnormalities are present. Visualized portions of the sinuses and mastoid air cells are christos ar. Right periorbital contusion is noted. IMPRESSION: 1. No acute intracranial findings. 2. No calvarial fracture. 3. Right periorbital contusion. ACT 112: Negative or not required by law. Electronically signed by: Sánchez Painter M.D. 02/11/2022 9:56 AM
--- NOTE | 2022-02-11 15:18 | Hospitalist Progress Note ---
Date of Service February 11, 2022 Assessment & Plan (1) Alcohol withdrawal: Plan: 46yo male with alcoholism presenting with EtOH withdrawal. Patient drinks approximately 8-10 drinks daily. Last drink this AM 02/10/22. EtOH [id number]=505. Has been started on CIWA protocol Still having tremors will continue Ativan and Librium Fall and seizure precaution Thiamine 100mg po daily Folate 1mg po daily (2) CHI (closed head injury): Plan: Patient fell and struck his head. He had a right supraorbital laceration that was repaired in the ER. CT of the head at the time of the injury as well as repeat CT today with no acute intracranial process, no bleed. -Fall precautions (3) High anion gap metabolic acidosis: Plan: Resolving Lactate still elevated continue oral fluid intake receck labs (4) Essential hypertension: Plan: Blood pressure acutely elevated in setting of EtOH withdrawal upon admission Now under better control -Continue Clonidine 0.2mg po BID -Continue Lisinopril 20mg po daily (5) Seizure: Plan: Patient with seizure disorder as well as EtOH withdrawal seizures -Continue Lamictal 150mg po BID -Management of EtOH withdrawal (6) Hypomagnesemia: Plan: Resolved Plan Ppx - Low risk for DVT Code - Full Dispo - continue mgt Admission and Anticipated Discharge Date Admission Date: February 10, 2022 Subjective patient seen and examined, still very tremulous Review of Systems Review of Systems: All systems reviewed are negative, apart from the ones contained in the history. Physical Exam Physical Exam: The patient is awake, alert and oriented 3, well developed and well nourished, normocephalic and atraumatic, lying in bed and in no acute distress. HEENT--PERRL, EOMI, mucous membranes and oropharynx mildly dry, right eyelid laceration Neck--supple. No JVD. No bruits. Thyroid normal, trachea midline, no adenopathy. Heart--normal S1 and S2. No murmurs, rubs or gallops. Lungs--clear bilaterally, no respiratory distress, no accessory muscle use. Abdomen--normal bowel sounds and soft. Mild epigastric and left sided abdominal pain Extremities--no cyanosis or clubbing. No edema. Dermatologic--normal skin turgor, normal color, no abnormal lymph nodes, no rash. Neurologic--coarse tremors Rheumatologic--normal range of motion. Psychiatric--normal affect. Results & Data Results & Data ([facility]) Vital Signs (Past 12 Hours) Vital Signs Temp Pulse Resp BP Pulse Ox O2 Del Method 02/11/22 11:51 97.9 F 89 19 165/93 H 96 Room Air 02/11/22 07:58 98.6 F 94 H 17 151/93 H 96 Room Air 02/11/22 04:21 Room Air 02/11/22 03:54 98.6 F 94 H 24 149/86 H 94 Room Air PG Care Time/CCT Total # of Minutes Spent Total Time Spent with Patient: Total time spent is greater than 50% in coordination of care (as documented) at patient's floor/unit and/or counseling patient: Coding Level of Care Code 63725 Subseq Hosp Care Lvl 2 Diagnoses Alcohol withdrawal F10.939 Complication of substance-induced condition: with unspecified complication CHI (closed head injury) S09.90XA High anion gap metabolic acidosis E87.2 Essential hypertension I10 Seizure R56.9 Hypomagnesemia E83.42 Time Spent (min) 35 (1) Alcohol withdrawal Complication of substance-induced condition: with unspecified complication Qualified Code(s): F10.939 - Alcohol use, unspecified with withdrawal, unspecified
[2022-02-11] MEDS ORDERED: ONDANSETRON INJ 2 MG/ML 2 ML VIAL IV PRN (15:27)
--- NOTE | 2022-02-11 16:52 | Electrocardiogram Report ---
Test Reason : Blood Pressure : / mmHG Vent. Rate : 086 BPM Atrial Rate : 086 BPM P-R Int : 136 ms QRS Dur : 096 ms QT Int : 410 ms P-R-T Axes : 064 035 043 degrees QTc Int : 490 ms Poor data quality, interpretation may be adversely affected Normal sinus rhythm Possible Left atrial enlargement Prolonged QT Abnormal ECG When compared with ECG of 10-FEB-2022 06:03, No significant change was found Confirmed by Mendez Puente ([id number]) on 02/11/2022 4:51:50 PM Referred By: REFERRED SELF Confirmed By:Mendez Puente
[2022-02-12] MEDS: cloNIDine HCL 0.1 MG TAB PO SCH ×2 (08:10→20:46)
[2022-02-12] MEDS: FOLIC ACID 1 MG TAB PO SCH (08:10)
[2022-02-12] MEDS: lamoTRIgine 100 MG TAB PO SCH ×2 (08:10→20:46)
[2022-02-12] MEDS: lisinopril 20 MG TAB PO SCH (08:10)
[2022-02-12] MEDS: THIAMINE HCL 100 MG TAB PO SCH (08:11)
[2022-02-12] MEDS: chlordiazePOXIDE HCl 25 MG CAP PO SCH ×2 (08:12→17:07)
--- NOTE | 2022-02-12 13:06 | Hospitalist Progress Note ---
Date of Service February 12, 2022 Assessment & Plan (1) Alcohol withdrawal: Plan: 46yo male with alcoholism presenting with EtOH withdrawal. Patient drinks approximately 8-10 drinks daily. Last drink this AM 02/10/22. EtOH nlvxm=926. Has been started on CIWA protocol Tremors have improved will continue Ativan and Librium Fall and seizure precaution Thiamine 100mg po daily Folate 1mg po daily (2) CHI (closed head injury): Plan: Patient fell and struck his head. He had a right supraorbital laceration that was repaired in the ER. CT of the head at the time of the injury as well as repeat CT today with no acute intracranial process, no bleed. -Fall precautions (3) High anion gap metabolic acidosis: Plan: Resolved (4) Essential hypertension: Plan: Blood pressure acutely elevated in setting of EtOH withdrawal upon admission Now under better control -Continue Clonidine 0.2mg po BID -Continue Lisinopril 20mg po daily (5) Seizure: Plan: Patient with seizure disorder as well as EtOH withdrawal seizures -Continue Lamictal 150mg po BID -Management of EtOH withdrawal (6) Hypomagnesemia: Plan: Resolved Plan Ppx - Low risk for DVT Code - Full Dispo - Home after PT eval Admission and Anticipated Discharge Date Admission Date: February 10, 2022 Subjective patient seen and examined, tremors have markedly reduced, says he wants to go home Review of Systems Review of Systems: All systems reviewed are negative, apart from the ones contained in the history. Physical Exam Physical Exam: The patient is awake, alert and oriented 3, well developed and well nourished, normocephalic and atraumatic, lying in bed and in no acute distress. HEENT--PERRL, EOMI, mucous membranes and oropharynx mildly dry, right eyelid laceration Neck--supple. No JVD. No bruits. Thyroid normal, trachea midline, no adenopathy. Heart--normal S1 and S2. No murmurs, rubs or gallops. Lungs--clear bilaterally, no respiratory distress, no accessory muscle use. Abdomen--normal bowel sounds and soft. Mild epigastric and left sided abdominal pain Extremities--no cyanosis or clubbing. No edema. Dermatologic--normal skin turgor, normal color, no abnormal lymph nodes, no r marcus. Neurologic--coarse tremors, much improved Rheumatologic--normal range of motion. Psychiatric--normal affect. Results & Data Results & Data ([facility]) Vital Signs (Past 12 Hours) Vital Signs Temp Pulse Resp BP Pulse Ox O2 Del Method 02/12/22 10:49 98.2 F 89 18 126/76 95 Room Air 02/12/22 08:16 98.2 F 88 18 137/82 95 Room Air 02/12/22 02:50 98.4 F 95 H 18 147/92 H 96 Room Air PG Care Time/CCT Total # of Minutes Spent Total Time Spent with Patient: Total time spent is greater than 50% in coordination of care (as documented) at patient's floor/unit and/or counseling patient: Coding Level of Care Code 26397 Subseq Hosp Care Lvl 2 Diagnoses Alcohol withdrawal F10.939 Complication of substance-induced condition: with unspecified complication CHI (closed head injury) S09.90XA High anion gap metabolic acidosis E87.2 Essential hypertension I10 Seizure R56.9 Hypomagnesemia E83.42 Time Spent (min) 35 (1) Alcohol withdrawal Complication of substance-induced condition: with unspecified complication Qualified Code(s): F10.939 - Alcohol use, unspecified with withdrawal, unspecified
[2022-02-13 06:30] LABS: BUN Creatinine Ratio 21.2 (10-20); Creatinine Clr Calc Pharmacy 152.1 ml/min; Est GFR (African American) 136.3 ml/min; Est GFR (Non-African American) 117.6 ml/min; Potassium 3.2 mmol/L (3.5-5.1)
[2022-02-13 07:01] LABS: Hematocrit (blood only) 37.1 % (40.1-51.0); Hemoglobin 13.2 g/dl (14.0-18.0); Mean Corpuscular Hemoglobin 34.6 pg (25.0-34.0); Mean Corpuscular Hgb Conc 35.6 g/dL (32.0-36.0); Mean Corpuscular Volume 97.1 fL (80.0-100.0); RDW Standard Deviation 50.4 fL (36.4-46.3); Red Blood Count 3.82 M/uL (4.63-6.08); White Blood Count 4.61 K/ul (4.8-10.8)
[2022-02-13 07:32] LABS: Mean Platelet Volume 11.2 fL (9.4-12.4); Platelet Count 62 K/uL (130-400)
[2022-02-13] MEDS: lamoTRIgine 100 MG TAB PO SCH (08:12)
[2022-02-13] MEDS: lisinopril 20 MG TAB PO SCH (08:13)
[2022-02-13] MEDS: FOLIC ACID 1 MG TAB PO SCH (08:13)
[2022-02-13] MEDS: THIAMINE HCL 100 MG TAB PO SCH (08:13)
[2022-02-13] MEDS: cloNIDine HCL 0.1 MG TAB PO SCH (08:13)
--- NOTE | 2022-02-13 14:29 | Discharge Summary ---
Date of Service February 13, 2022 Admission HPI Per Admitting Provider Freddie Ahuja is a 46yo male with history of alcoholism with complicated withdrawals, DTs and withdrawal seizures, epilepsy and HTN presenting with EtOH withdrawal. Patient was seen in the ER earlier today after suffering a seizure at home. He reports after the seizure he got up and walked outside and sustained a ground level fall striking his right face on the sidewalk. He was seen in in the ER and had a CT of the brain, facial bones and C-sine that were unremarkable. His EtOH level was >300. He had his right eyebrow laceration repaired and he was discharged home in stable condition. Patient got home around 11:00 this AM. His father reports after getting home he developed significant tremor, nausea and vomiting. His shaking continued to worsen which prompted them to come to the ER. Upon arrival here is he afebrile, hypertensive, tremulous. He had a brief witnessed episode of unresponsiveness in the ER. Staff reports that his eyes rolled back and he wasn't answering questions. The episode lasted only a few moments then patient came out of it. During my exam patient is tremulous. He denies headache, visual disturbance, chest pain, cough, SOB, abdominal pain, nausea, vomiting, diarrhea or constipation. Patient continues to drink approximately 1/2 of a bottle of [employer] liquor daily (appx 8-10 drinks daily). His last drink was early this AM 02/10/22 prior to arrival to the ER. ER Course: Ativan 2mg IV Zofran 4mg IV NSS x 1L Magnesium x 2gm Banana bag PM meds ordered - Clonidine 0.1mg PO and Lamictal 150mg as well as Valium 10mg po Principal Diagnosis alcohol withdrawal Discharge Exam The patient is awake, alert and oriented 3, well developed and well nourished, normocephalic and atraumatic, lying in bed and in no acute distress. HEENT--PERRL, EOMI, mucous membranes and oropharynx mildly dry, right eyelid laceration Neck--supple. No JVD. No bruits. Thyroid normal, trachea midline, no adenopathy. Heart--normal S1 and S2. No murmurs, rubs or gallops. Lungs--clear bilaterally, no respiratory distress, no accessory muscle use. Abdomen--normal bowel sounds and soft. Mild epigastric and left sided abdominal pain Extremities--no cyanosis or clubbing. No edema. Dermatologic--normal skin turgor, normal color, no abnormal lymph nodes, no rash. Neurologic--coarse tremors, much improved Rheumatologic--normal range of motion. Psychiatric--normal affect. Discharge Data Allergies Allergy/AdvReac Type Severity Reaction Status Date / Time No Known Allergies Allergy Mild Verified 02/10/22 09:24 Consultations 02/10/22 21:11 ED Decision to Admit Stat Ordered Studies 02/10/22 20:07 CT head/brain wo con Urgent Hospital Course (1) Alcohol withdrawal: 46yo male with alcoholism presenting with EtOH withdrawal. Patient drinks approximately 8-10 drinks daily. Last drink this AM 02/10/22. EtOH osoux=904. Has been started on CIWA protocol Tremors have improved Fall and seizure precaution Thiamine 100mg po daily Folate 1mg po daily Discharge on Librium taper (2) CHI (closed head injury): Patient fell and struck his head. He had a right supraorbital laceration that was repaired in the ER. CT of the head at the time of the injury as well as repeat CT today with no acute intracranial process, no bleed. -Fall precautions (3) High anion gap metabolic acidosis: Resolved (4) Essential hypertension: Blood pressure acutely elevated in setting of EtOH withdrawal upon admission Now under better control -Continue Clonidine 0.2mg po BID -Continue Lisinopril 20mg po daily (5) Seizure: Patient with seizure disorder as well as EtOH withdrawal seizures -Continue Lamictal 150mg po BID -Management of EtOH withdrawal (6) Hypomagnesemia: Resolved Plan Ppx - Low risk for DVT Code - Full Dispo - Home after PT eval Total Time Total Time Spent Total Time Spent (In Minutes): 35 Discharge Plan Discharge Items Patient Disposition: Home - Self-Care Reason For Visit: ETOH WITHDRAWAL Discharge Diagnosis: Alcohol withdrawal Activity: Resume your previous activity Non-emergency contact: Primary Care Provider Call non-emergency contact if: you have any medication questions Follow-up/Referrals: Luis Antonio Guevara [Primary Care Provider] - Diet: Regular Addtl Attending Provider Instructions: please abstain from alcohol. make arrangements to follow up with your PCP Pending Studies at Discharge: No Stand-Alone Forms: My [employer], Smoking Cessation Medications and DC Order Prescriptions: Continued lamotrigine [Lamictal] 150 mg tablet 150 mg PO BID Rx Instructions: Taken @ 0730 clonidine HCl 0.1 mg tablet 0.2 mg PO BID lisinopril 20 mg tablet 20 mg PO DAILY folic acid 1 mg tablet 1 mg PO DAILY Discharge Orders: Discharge Order (Routine); Ordered 02/13/22 Ordered By: German Carias Admission Data Admit Date/Time: 02/10/22 21:34 Attending Provider: German Carias Admit Provider: Danita Urbano Primary Care Provider: Luis Antonio Guevara Other Providers: Danita Urbano Other Interventions: Discharge Summary Assessment (RN) Last Done: 02/13/22 11:17 Coding Level of Care Code D/C DAY MANAGEMENT >30 MINS Diagnoses Alcohol withdrawal F10.939 Complication of substance-induced condition: with unspecified complication CHI (closed head injury) S09.90XA High anion gap metabolic acidosis E87.2 Essential hypertension I10 Seizure R56.9 Hypomagnesemia E83.42 Time Spent (min) 35
[2022-02-14] MEDS ORDERED: chlordiazePOXIDE HCl 5 MG CAP PO SCH (06:00)
== END 2022-02-13 12:02 | disposition home or self-care (01) | DRG 897 ==
LOC: ED 17:35 → 2S 21:34 → SUATTDRO 21:34 → 2S 22:49

== ENCOUNTER 2022-04-29 07:31 | Inpatient (IN) ==
[2022-04-29] MEDS ORDERED: LORazepam 1 MG TAB ONE (07:57)
[2022-04-29] MEDS ORDERED: lamoTRIgine 100 MG TAB PO STA (07:58)
[2022-04-29] MEDS ORDERED: MULTI-VITAMIN INFUSION 10 ML, THIAMINE HCL 100 MG, FOLIC ACID 1 MG in SODIUM CHLORIDE 0... IV ONE ×2 (07:59→10:35)
[2022-04-29] MEDS ORDERED: SODIUM CHLORIDE 0.9% 1000ML 1,000 ML IV SCH (08:00)
[2022-04-29] MEDS ORDERED: cloNIDine HCL 0.1 MG TAB PO ONE (08:01)
[2022-04-29] MEDS ORDERED: lisinopril 20 MG TAB PO STA (08:01)
[2022-04-29] MEDS ORDERED: GABAPENTIN 600 MG TAB PO ONE (08:03)
[2022-04-29] MEDS ORDERED: GABAPENTIN 1200MG ALCOHOL WITHDRAWAL LOAD PO STA (08:03)
[2022-04-29 08:20] LABS: Basophils # (auto) 0.03 K/uL (0-0.2); Basophils % (auto) 0.7 %; Hematocrit (blood only) 43.6 % (42.0-52.0); Hemoglobin 15.4 g/dl (14.0-18.0); Immature Granulocytes # (auto) 0.02 K/uL (0.01-0.20); Immature Granulocytes % (auto) 0.5 %; Lymphocytes # (auto) 0.31 K/uL (1.2-3.4); Lymphocytes % (auto) 7.1 %; Mean Corpuscular Hemoglobin 36.2 pg (25.0-34.0); Mean Corpuscular Hgb Conc 35.3 g/dL (32.0-36.0); Mean Corpuscular Volume 102.3 fL (80.0-100.0); Mean Platelet Volume 9.9 fL (9.4-12.4); Monocytes # (auto) 0.28 K/uL (0.11-0.59); Monocytes % (auto) 6.4 %; Neutrophils # (auto) 3.72 K/uL (1.40-6.50); Neutrophils % (auto) 85.3 %; Platelet Count 121 K/uL (130-400); RDW Coefficient of Variation 13.5 % (11.5-14.5); RDW Standard Deviation 51.1 fL (36.4-46.3); Red Blood Count 4.26 M/uL (4.70-6.10); White Blood Count 4.36 K/ul (4.8-10.8)
[2022-04-29 08:24] LABS: Albumin Globulin Ratio 1.2 (0.9-2); Albumin Level 4.9 gm/dl (3.4-5.0); BUN Creatinine Ratio 13.2 (10-20); Bilirubin,Total 1.9 mg/dl (0.2-1.0); Calcium 9.8 mg/dl (8.5-10.1); Creatinine Clr Calc Pharmacy 132.1 ml/min; Est GFR (African American) 128.6 ml/min; Globulin 4.1 gm/dl (2.5-4.0); Magnesium 1.4 mg/dl (1.7-2.4); Potassium 3.9 mmol/L (3.5-5.1)
[2022-04-29 08:34] LABS: Appearance Urine Clear (Clear); Bacteria Urine Automated Negative (Negative); Bilirubin Urine Negative (Negative); Blood Urine 2+ (Negative); Color Urine Dark Yellow; Epithelial Cell Urine Auto >30 /lpf (0-5); Glucose Urine UA 2+ (Negative); Ketones Urine 2+ (Negative); Leukocyte Esterase Urine Negative (Negative); Nitrite Urine Negative (Negative); Protein Urine 3+ (Negative); RBC Urine Automated >30 /hpf (0-4); Specific Gravity Urine 1.029 (1.000-1.030); Urobilinogen Urine Negative (Negative)
[2022-04-29 08:44] LABS: INR 1.1 (0.9-1.1); Prothrombin Time 11.6 Seconds (9.0-12.0)
[2022-04-29] MEDS ORDERED: LORazepam 2 MG/1 ML VIAL IV STA (09:09)
--- NOTE | 2022-04-29 09:17 | History & Physical Report ---
Date of Service April 29, 2022 Assessment & Plan (1) Alcohol withdrawal seizure: Plan: Patient with seizures at home suspected alcohol withdrawal seizures. Patient was given benzodiazepines and started on gabapentin in the emergency department This is acute problem with serious risk Start Librium scheduled dose with taper, Ativan for backup withdrawal, continue gabapentin, seizure precautions Banana bag to augment thiamine continue thiamine augmentation afterwards Parenteral hydration with crystalloid solution With regard to chronic seizure disorder this is now unstable, patient with seizures at home, patient will be continued on his Lamictal with the gabapentin also helping. With regard to hypertension this is now acute on chronic and is uncontrolled hypertension in the emergency department patient was given clonidine and lisinopril. Patient followed back up hydralazine as needed DVT prevention will be SCDs unless it becomes more tender than we will use chemoprophylaxis History of Present Illness Primary Care Provider: Luis Antonio Webbercyrus Patient has a history of alcohol abuse and seizure disorder. Reportedly was having seizures at home this morning., Alcohol level was 0 on presentation. Patient was given Ativan in route 0.5 mg given 2 mg of Ativan orally on presentation. Was started on the gabapentin protocol and administered his morning medications as he does have a hypertensive urgency while here in the emergency department. Patient admitted to telemetry for concern for alcohol withdrawal and exacerbating his seizure disorder. Allergies Allergy/AdvReac Type Severity Reaction Status Date / Time No Known Allergies Allergy Mild Verified 02/10/22 09:24 Home Medications Medication Instructions Recorded Confirmed Type lamotrigine 150 mg tablet 150 mg PO BID 01/13/21 02/10/22 History (Lamictal) clonidine HCl 0.1 mg tablet 0.2 mg PO BID 11/11/21 02/10/22 History folic acid 1 mg tablet 1 mg PO DAILY 11/11/21 02/10/22 History lisinopril 20 mg tablet 20 mg PO DAILY 11/11/21 02/10/22 History Past Med/Surg History Medical History Alcoholism Delirium tremens Essential hypertension Seizures (~11/16/21) Surgical History No pertinent past surgical history Family History Father Skin cancer of face Denies family history of Alcoholism Seizure disorder Social History Smoking Status: Current every day smoker Tobacco Type: Cigarettes Cigarettes Per Day: 10; Second Hand Exposure: No; Hx Alcohol Use: Yes Alcohol type: beer and hard liquor Alcohol type Comment: DAILY consumption, mixture of bottle of wine, bottle of liquor, and/or beer Hx Substance Use: No Preferred Language: Telugu Communication Ability: Effective 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 Beliefs That Will Affect Care: None marital status: Single marital status details: x 2 Current Living Situation: Parent Current Living Situation Comment: lives w/ father in [place] current occupational status: 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[employer] How many Children do You have: 0 Feels Safe at Home: Yes Assistive Devices: None Physical Exam Physical Exam: Patient was tremulous he was awake he is covered in dermatitis his cardiac exam is tachycardic his lungs are clear he has no asterixis his neurological exam is alert and oriented he has no focal loss of strength or sensation Results & Data Results & Data ([facility]) Vital Signs (Past 12 Hours) Vital Signs Temp Pulse Resp BP Pulse Ox O2 Del Method 04/29/22 07:59 95 Room Air 04/29/22 07:47 99.0 F 87 24 161/113 H 97 Room Air 04/29/22 07:43 66 Laboratory Results Reviewed CBC reviewed PRP reviewed toxicology reviewed COVID test Code Status & VTE Plan VTE Prophylaxis Plan VTE Prophylaxis will be ordered: No PG Care Time/CCT Total # of Minutes Spent Total Time Spent with Patient: Total time spent is greater than 50% in coordination of care (as documented) at patient's floor/unit and/or counseling patient: Coding Level of Care Code 37550 INT INP/OBS CARE 2/55MIN Diagnoses Alcohol withdrawal seizure F10.239; R56.9
[2022-04-29 09:36] LABS: Amphetamines+Metham, Urine Neg (Neg); Barbiturates, Urine Neg (Neg); Benzodiazepine, Urine Neg (Neg); Cocaine, Urine Neg (Neg); MDMA (Ecstacy), Urine Neg (Neg); Methadone, Urine Neg (Neg); Opiate, Urine Neg (Neg); Phencyclidine, Urine Neg (Neg)
[2022-04-29] MEDS ORDERED: LORazepam 2 MG/1 ML VIAL IV ONE (10:15)
[2022-04-29] MEDS ORDERED: hydrALAZINE HCL 20 MG/ML VIAL IV PRN (10:35)
[2022-04-29] MEDS ORDERED: Ativan IV Alcohol Withdrawal--Active Protocol IV PRN (10:35)
[2022-04-29] MEDS ORDERED: ONDANSETRON INJ 2 MG/ML 2 ML VIAL IV PRN (10:35)
[2022-04-29] MEDS ORDERED: ALUMINUM/MAGNESIUM SUSP 30 ML UDC PO PRN (10:35)
[2022-04-29] MEDS ORDERED: LORazepam 2 MG/1 ML VIAL IV PRN ×3 (10:35)
[2022-04-29] MEDS ORDERED: chlordiazePOXIDE ALCOHOL WITHDRAWL 25MG PO STA (10:35)
[2022-04-29] MEDS: LACTATED RINGER'S 1,000 ML IV SCH ×2 (11:00→19:23)
--- NOTE | 2022-04-29 11:24 | Electrocardiogram Report ---
Test Reason : Blood Pressure : / mmHG Vent. Rate : 067 BPM Atrial Rate : 067 BPM P-R Int : 138 ms QRS Dur : 096 ms QT Int : 454 ms P-R-T Axes : 054 009 017 degrees QTc Int : 479 ms Normal sinus rhythm with sinus arrhythmia Possible Left atrial enlargement Borderline ECG When compared with ECG of 10-FEB-2022 17:53, No significant change was found Confirmed by Corey Gardner ([id number]) on 04/29/2022 11:24:36 AM Referred By: REFERRED SELF Confirmed By:Neal Gardner
[2022-04-29] MEDS ORDERED: GABAPENTIN 600 MG TAB PO SCH (14:15)
[2022-04-29] MEDS: chlordiazePOXIDE HCl 25 MG CAP PO SCH ×2 (16:11→20:46)
[2022-04-29] MEDS: GABAPENTIN 600 MG TAB PO SCH ×2 (16:11→20:39)
--- NOTE | 2022-04-29 16:33 | Emergency Department Note ---
Impression & Plan Alcohol withdrawal ED Provider Note CHIEF COMPLAINT: Alcohol withdrawal HISTORY OF PRESENT ILLNESS: This 46-year-old male patient presents to the emergency department with complaints of alcohol withdrawal. He does have a long history of seizures and alcohol dependency. He states his last drink was 2 days ago. The patient had several witnessed seizures this morning and his dad called the ambulance. He does live at home with his father. He states he drinks 2 to 3 pints of malt liquor daily. He has not yet taken his Lamictal or blood pressure medication today. Patient received 0.5 mg of Ativan in route by EMS. He complains of continued shakiness, nausea. REVIEW OF SYSTEMS: A review of systems was performed with positives and pertinent negatives listed in the history of present illness. 10 systems were reviewed and are otherwise negative. ALLERGIES: see below MEDICATIONS: see below PMH: see below SOCIAL HISTORY: see below DDx: Alcohol intoxication, toxicologic, withdrawal, hypoglycemia, electrolyte abnormalities, seizure, intracerebral event, neurologic, trauma, as well as other pathologies. PHYSICAL EXAM: Vital signs reviewed. General: Chronically ill-appearing 46 yo male, in no significant distress. HEENT: No scleral icterus, PERRLA, neck supple. Moist mucous membranes, Cardiovascular: Regular rate and rhythm, no extra sounds. Pulmonary: Clear to auscultation bilaterally, normal work of breathing. Abdomen: Soft, nontender, nondistended, positive bowel sounds. Musculoskeletal: Atraumatic, no peripheral edema. Neurologic: Patient awake alert and oriented x 3 Skin: Warm, dry. Telangiectasias noted to upper chest and anterior neck. EMERGENCY DEPARTMENT COURSE/MDM: This patient was evaluated and appeared to be in no significant distress. The patient was actively withdrawing from alcohol and had several seizures this morning to his account. Patient had not taken his morning medications which were administered. Patient did receive 2 mg of sublingual Ativan. External medical records were reviewed. IV access was obtained and laboratory work was drawn. The patient was hydrated with 1 L of normal saline solution and 1 banana bag. The gabapentin alcohol withdrawal protocol was initiated. Laboratory work reveals a negative alcohol level, elevated LFTs and a depleted magnesium. Urinalysis reveals evidence of blood, of uncertain etiology. Patient did receive an additional 2 mg of IV Ativan for withdrawal symptoms later in his stay. I do believe the patient will need intensive management of his alcohol detox especially with his history of seizures. His case was discussed with the hospitalist who will evaluate the patient for admission and further management. MONITORING: An order for cardiac monitoring was placed and the patient is noted to be in a normal sinus rhythm at 97 beats per minute. EKG: To my interpretation reveals a normal sinus rhythm with sinus arrhythmia at 67 bpm. QTc is 479, normal ST segments. No PVC, no PAC. DISPOSITION: Admission I have personally spent 35 minutes of critical care time in the direct management of this patient. This was a life/limb threatening event. This 35 minutes is in excess of all separately billable procedures. Past Med/Surg History Medical History Alcoholism Delirium tremens Essential hypertension Metabolic encephalopathy Seizures (~11/16/21) Surgical History No pertinent past surgical history Family History Father Skin cancer of face Denies family history of Alcoholism Seizure disorder Social History Smoking Status: Current every day smoker Tobacco Type: Cigarettes Cigarettes Per Day: 10; Second Hand Exposure: No; Hx Alcohol Use: Yes Alcohol type: beer and hard liquor Alcohol type Comment: DAILY consumption, mixture of bottle of wine, bottle of liquor, and/or beer Hx Substance Use: No Preferred Language: Bangladeshi Communication Ability: Effective 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 Beliefs That Will Affect Care: None marital status: Single marital status details: x 2 Current Living Situation: Parent Current Living Situation Comment: lives w/ father in [place] current occupational status: 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[employer] How many Children do You have: 0 Feels Safe at Home: Yes Assistive Devices: None Allergies Allergies Allergy/AdvReac Type Severity Reaction Status Date / Time No Known Allergies Allergy Mild Verified 02/10/22 09:24 Home Meds Home Medications Medication Instructions Recorded Confirmed lamotrigine 150 mg tablet 150 mg PO BID 01/13/21 02/10/22 (Lamictal) clonidine HCl 0.1 mg tablet 0.2 mg PO BID 11/11/21 02/10/22 folic acid 1 mg tablet 1 mg PO DAILY 11/11/21 02/10/22 lisinopril 20 mg tablet 20 mg PO DAILY 11/11/21 02/10/22 Previous Rx's Medication Instructions Recorded chlordiazepoxide HCl 10 mg capsule 10 mg PO UD #14 caps 05/01/22 famotidine 20 mg tablet (Pepcid) 20 mg PO BID #14 tabs 05/01/22 gabapentin 300 mg capsule 300 mg PO BID 10 days #20 caps 05/01/22 loratadine 10 mg tablet (Claritin) 10 mg PO DAILY #14 tabs 05/01/22 Results & Data (ED) Vital Signs Vital Signs - 24 hr 04/29/22 07:43 04/29/22 07:47 04/29/22 07:59 Temperature 37.2 C Temperature Source Oral Pulse Rate 66 87 Respiratory Rate 24 Blood Pressure 161/113 H Blood Pressure Mean 129 Pulse Oximetry 97 95 Oxygen Delivery Method Room Air Room Air Sepsis Recent Fever Within 48 Hours No Sepsis New/Unexplained Change in Mental Status No Sepsis Action Taken by Nursing No Action Required Home Medications Current Medication List: was personally reviewed by me Laboratory Data Attestation: I reviewed the patient's lab results. 04/29/22 07:40 04/29/22 07:40 Lab Results 04/29/22 04/29/22 04/29/22 Range/Units 07:40 07:40 07:40 WBC 4.36 L (4.8-10.8) K/ul RBC 4.26 L (4.70-6.10) M/uL Hgb 15.4 (14.0-18.0) g/dl Hct 43.6 (42.0-52.0) % MCV 102.3 H (80.0-100.0) fL MCH 36.2 H (25.0-34.0) pg MCHC 35.3 (32.0-36.0) g/dL RDW Std Deviation 51.1 H (36.4-46.3) fL RDW Coeff of Amena 13.5 (11.5-14.5) % Plt Count 121 L (130-400) K/uL MPV 9.9 (9.4-12.4) fL Immature Gran % (Auto) 0.5 % Neut % (Auto) 85.3 % Lymph % (Auto) 7.1 % [place] % (Auto) 6.4 % Eos % (Auto) 0.0 % Baso % (Auto) 0.7 % Neut # (Auto) 3.72 (1.40-6.50) K/uL Lymph # (Auto) 0.31 L (1.2-3.4) K/uL [place] # (Auto) 0.28 (0.11-0.59) K/uL Eos # (Auto) 0.00 (0-0.50) K/uL Baso # (Auto) 0.03 (0-0.2) K/uL Immature Gran # (Auto) 0.02 (0.01-0.20) K/uL PT (9.0-12.0) Seconds INR (0.9-1.1) Sodium 140 (136-145) mmol/L Potassium 3.9 (3.5-5.1) mmol/L Chloride 103 (98-107) mmol/L Carbon Dioxide 24 (21-32) mmol/L Anion Gap 13 H (3-11) BUN 10 (6-23) mg/dl Creatinine 0.76 (0.6-1.4) mg/dl Est Cr Clr Drug Dosing 132.1 ml/min Est GFR ( Amer) 128.6 ml/min Est GFR (Non-Af Amer) 111.0 ml/min BUN/Creatinine Ratio 13.2 (10-20) Glucose 182 H (70-99(Fasting)) mg/dl Lactate (0.4-2.0) mmol/L Calcium 9.8 (8.5-10.1) mg/dl Magnesium 1.4 L (1.7-2.4) mg/dl Total Bilirubin 1.9 H (0.2-1.0) mg/dl AST 86 H (13-39) U/L ALT 65 H (7-52) U/L Alkaline Phosphatase 130 H (34-104) U/L Total Protein 9.0 H (6.0-8.3) gm/dl Albumin 4.9 (3.4-5.0) gm/dl Globulin 4.1 H (2.5-4.0) gm/dl Albumin/Globulin Ratio 1.2 (0.9-2) Urine Color Urine Appearance (Clear) Urine pH (4.5-7.5) Ur Specific [place] (1.000-1.030) Urine Protein (Negative) Urine Glucose (UA) (Negative) Urine Ketones (Negative) Urine Blood (Negative) Urine Nitrite (Negative) Urine Bilirubin (Negative) Urine Urobilinogen (Negative) Ur Leukocyte Esterase (Negative) Urine WBC (Auto) (0-5) /hpf Urine RBC (Auto) (0-4) /hpf U Hyaline Cast (Auto) (0-5) /lpf U Epithel Cells (Auto) (0-5) /lpf Urine Bacteria (Auto) (Negative) Ur Renal Epithelial Cell Urine Opiates Screen (Neg) Ur Methadone, Qual (Neg) Urine Barbiturates (Neg) Ur Phencyclidine (PCP) (Neg) U Amphetamin/Meth Scrn (Neg) MDMA (Ecstasy) Screen (Neg) U Benzodiazepines Scrn (Neg) Ur Cocaine Metabolite (Neg) U Marijuana (THC) Screen (Neg) Ethyl Alcohol mg/dL < 10.0 (<10.0) mg/dl SARS-CoV-2, RNA, NAAT (NEGATIVE) 04/29/22 04/29/22 04/29/22 Range/Units 07:40 07:46 07:46 WBC (4.8-10.8) K/ul RBC (4.70-6.10) M/uL Hgb (14.0-18.0) g/dl Hct (42.0-52.0) % MCV (80.0-100.0) fL MCH (25.0-34.0) pg MCHC (32.0-36.0) g/dL RDW Std Deviation (36.4-46.3) fL RDW Coeff of Amena (11.5-14.5) % Plt Count (130-400) K/uL MPV (9.4-12.4) fL Immature Gran % (Auto) % Neut % (Auto) % Lymph % (Auto) % [place] % (Auto) % Eos % (Auto) % Baso % (Auto) % Neut # (Auto) (1.40-6.50) K/uL Lymph # (Auto) (1.2-3.4) K/uL [place] # (Auto) (0.11-0.59) K/uL Eos # (Auto) (0-0.50) K/uL Baso # (Auto) (0-0.2) K/uL Immature Gran # (Auto) (0.01-0.20) K/uL PT 11.6 (9.0-12.0) Seconds INR 1.1 (0.9-1.1) Sodium (136-145) mmol/L Potassium (3.5-5.1) mmol/L Chloride (98-107) mmol/L Carbon Dioxide (21-32) mmol/L Anion Gap (3-11) BUN (6-23) mg/dl Creatinine (0.6-1.4) mg/dl Est Cr Clr Drug Dosing ml/min Est GFR ( Amer) ml/min Est GFR (Non-Af Amer) ml/min BUN/Creatinine Ratio (10-20) Glucose (70-99(Fasting)) mg/dl Lactate (0.4-2.0) mmol/L Calcium (8.5-10.1) mg/dl Magnesium (1.7-2.4) mg/dl Total Bilirubin (0.2-1.0) mg/dl AST (13-39) U/L ALT (7-52) U/L Alkaline Phosphatase (34-104) U/L Total Protein (6.0-8.3) gm/dl Albumin (3.4-5.0) gm/dl Globulin (2.5-4.0) gm/dl Albumin/Globulin Ratio (0.9-2) Urine Color Dark Yellow Urine Appearance Clear (Clear) Urine pH 7.0 (4.5-7.5) Ur Specific [place] 1.029 (1.000-1.030) Urine Protein 3+ H (Negative) Urine Glucose (UA) 2+ H (Negative) Urine Ketones 2+ H (Negative) Urine Blood 2+ H (Negative) Urine Nitrite Negative (Negative) Urine Bilirubin Negative (Negative) Urine Urobilinogen Negative (Negative) Ur Leukocyte Esterase Negative (Negative) Urine WBC (Auto) 1-5 (0-5) /hpf Urine RBC (Auto) >30 H (0-4) /hpf U Hyaline Cast (Auto) 1-5 (0-5) /lpf U Epithel Cells (Auto) >30 H (0-5) /lpf Urine Bacteria (Auto) Negative (Negative) Ur Renal Epithelial Cell Not Reportable Urine Opiates Screen Neg (Neg) Ur Methadone, Qual Neg (Neg) Urine Barbiturates Neg (Neg) Ur Phencyclidine (PCP) Neg (Neg) U Amphetamin/Meth Scrn Neg (Neg) MDMA (Ecstasy) Screen Neg (Neg) U Benzodiazepines Scrn Neg (Neg) Ur Cocaine Metabolite Neg (Neg) U Marijuana (THC) Screen Neg (Neg) Ethyl Alcohol mg/dL (<10.0) mg/dl SARS-CoV-2, RNA, NAAT (NEGATIVE) 04/29/22 04/29/22 Range/Units 08:30 08:34 WBC (4.8-10.8) K/ul RBC (4.70-6.10) M/uL Hgb (14.0-18.0) g/dl Hct (42.0-52.0) % MCV (80.0-100.0) fL MCH (25.0-34.0) pg MCHC (32.0-36.0) g/dL RDW Std Deviation (36.4-46.3) fL RDW Coeff of Amena (11.5-14.5) % Plt Count (130-400) K/uL MPV (9.4-12.4) fL Immature Gran % (Auto) % Neut % (Auto) % Lymph % (Auto) % [place] % (Auto) % Eos % (Auto) % Baso % (Auto) % Neut # (Auto) (1.40-6.50) K/uL Lymph # (Auto) (1.2-3.4) K/uL [place] # (Auto) (0.11-0.59) K/uL Eos # (Auto) (0-0.50) K/uL Baso # (Auto) (0-0.2) K/uL Immature Gran # (Auto) (0.01-0.20) K/uL PT (9.0-12.0) Seconds INR (0.9-1.1) Sodium (136-145) mmol/L Potassium (3.5-5.1) mmol/L Chloride (98-107) mmol/L Carbon Dioxide (21-32) mmol/L Anion Gap (3-11) BUN (6-23) mg/dl Creatinine (0.6-1.4) mg/dl Est Cr Clr Drug Dosing ml/min Est GFR ( Amer) ml/min Est GFR (Non-Af Amer) ml/min BUN/Creatinine Ratio (10-20) Glucose (70-99(Fasting)) mg/dl Lactate 2.7 H* (0.4-2.0) mmol/L Calcium (8.5-10.1) mg/dl Magnesium (1.7-2.4) mg/dl Total Bilirubin (0.2-1.0) mg/dl AST (13-39) U/L ALT (7-52) U/L Alkaline Phosphatase (34-104) U/L Total Protein (6.0-8.3) gm/dl Albumin (3.4-5.0) gm/dl Globulin (2.5-4.0) gm/dl Albumin/Globulin Ratio (0.9-2) Urine Color Urine Appearance (Clear) Urine pH (4.5-7.5) Ur Specific [place] (1.000-1.030) Urine Protein (Negative) Urine Glucose (UA) (Negative) Urine Ketones (Negative) Urine Blood (Negative) Urine Nitrite (Negative) Urine Bilirubin (Negative) Urine Urobilinogen (Negative) Ur Leukocyte Esterase (Negative) Urine WBC (Auto) (0-5) /hpf Urine RBC (Auto) (0-4) /hpf U Hyaline Cast (Auto) (0-5) /lpf U Epithel Cells (Auto) (0-5) /lpf Urine Bacteria (Auto) (Negative) Ur Renal Epithelial Cell Urine Opiates Screen (Neg) Ur Methadone, Qual (Neg) Urine Barbiturates (Neg) Ur Phencyclidine (PCP) (Neg) U Amphetamin/Meth Scrn (Neg) MDMA (Ecstasy) Screen (Neg) U Benzodiazepines Scrn (Neg) Ur Cocaine Metabolite (Neg) U Marijuana (THC) Screen (Neg) Ethyl Alcohol mg/dL (<10.0) mg/dl SARS-CoV-2, RNA, NAAT NEGATIVE (NEGATIVE) Administered Medications Discontinued Medications Chlordiazepoxide HCl (Chlordiazepoxide Alcohol Withdrawl 25mg) 1 each PO NOW STA; Protocol Stop: 04/29/22 10:36 Last Admin: 04/29/22 13:04 Dose: Not Given Documented By: CAM Chlordiazepoxide HCl (Chlordiazepoxide Hcl 10 Mg Cap) 10 mg PO Q8H [facility] Stop: 05/02/22 06:01 Last Admin: 05/01/22 14:03 Dose: 10 mg Documented By: REKHA Chlordiazepoxide HCl (Chlordiazepoxide Hcl 25 Mg Cap) 25 mg PO Q8H ROBIN; Taper Stop: 05/01/22 15:59 Last Admin: 05/01/22 07:48 Dose: 25 mg Documented By: Admin: 04/30/22 23:17 Dose: 25 mg Documented By: Admin: 04/30/22 16:35 Dose: 25 mg Documented By: Admin: 04/30/22 10:13 Dose: 25 mg Documented By: Admin: 04/30/22 05:00 Dose: 25 mg Documented By: Admin: 04/29/22 20:46 Dose: 25 mg Documented By: Admin: 04/29/22 16:11 Dose: 25 mg Documented By: SHANEL Clonidine HCl (Clonidine Hcl 0.1 Mg Tab) 0.2 mg PO NOW ONE Stop: 04/29/22 08:02 Last Admin: 04/29/22 08:11 Dose: 0.2 mg Documented By: ORESTES Clonidine HCl (Clonidine Hcl 0.1 Mg Tab) 0.2 mg PO BID ROBIN Stop: 05/29/22 20:59 Last Admin: 05/01/22 07:48 Dose: 0.2 mg Documented By: Admin: 04/30/22 19:57 Dose: 0.2 mg Documented By: Admin: 04/30/22 08:47 Dose: 0.2 mg Documented By: Admin: 04/29/22 20:47 Dose: 0.2 mg Documented By: CHARLEY Folic Acid (Folic Acid 1 Mg Tab) 1 mg PO DAILY ROBIN Stop: 05/30/22 08:59 Last Admin: 05/01/22 07:49 Dose: 1 mg Documented By: Admin: 04/30/22 08:43 Dose: 1 mg Documented By: LINH Gabapentin (Gabapentin 1200mg Alcohol Withdrawal Load) 1 each PO NOW STA; Protocol Stop: 04/29/22 08:04 Last Admin: 04/29/22 09:03 Dose: Not Given Documented By: ORESTES Gabapentin (Gabapentin 600 Mg Tab) 600 mg PO Q6H ROBIN Stop: 04/29/22 20:16 Last Admin: 04/29/22 19:19 Dose: Not Given Documented By: CHARLEY Gabapentin (Gabapentin 600 Mg Tab) 1,200 mg PO NOW ONE Stop: 04/29/22 08:04 Last Admin: 04/29/22 09:02 Dose: 1,200 mg Documented By: ORESTES Gabapentin (Gabapentin 600 Mg Tab) 600 mg PO Q12H [facility] Stop: 05/01/22 22:01 Last Admin: 05/01/22 09:26 Dose: 600 mg Documented By: REKHA Gabapentin (Gabapentin 600 Mg Tab) 600 mg PO Q8H ROBIN Stop: 04/30/22 22:01 Last Admin: 04/30/22 19:52 Dose: 600 mg Documented By: Admin: 04/30/22 14:05 Dose: 600 mg Documented By: Admin: 04/30/22 05:00 Dose: 600 mg Documented By: CHARLEY Gabapentin (Gabapentin 600 Mg Tab) 600 mg PO Q6H ROBIN Stop: 04/29/22 22:01 Last Admin: 04/29/22 20:39 Dose: 600 mg Documented By: Admin: 04/29/22 16:11 Dose: 600 mg Documented By: SHANEL Hydralazine HCl (Hydralazine Hcl 20 Mg/Ml Vial) 10 mg IV Q8 PRN PRN Reason: sbp>185 or dbp>95 Stop: 05/29/22 10:34 Last Admin: 04/29/22 13:06 Dose: 10 mg Documented By: SHANEL Sodium Chloride (Nss 1000ml) 1,000 mls @ 999 mls/hr IV .Q1H1M ROBIN Stop: 04/29/22 09:00 Last Infusion: 04/29/22 09:38 Dose: 0 mls/hr Documented By: Admin: 04/29/22 08:12 Dose: 999 mls/hr Documented By: ORESTES Multivitamins 10 ml/ Thiamine HCl 100 mg/ Folic Acid 1 mg/Sodium Chloride 1,011.2 mls @ 1,011.2 mls/hr IV .Q1H ONE Stop: 04/29/22 08:58 Last Infusion: 04/29/22 09:38 Dose: 0 mls/hr Documented By: Admin: 04/29/22 08:41 Dose: 1,011.2 mls/hr Documented By: ORESTES Lactated Ringer's (Lr) 1,000 mls @ 125 mls/hr IV .Q8H ROBIN Stop: 04/30/22 10:34 Last Infusion: 04/30/22 10:57 Dose: 0 mls/hr Documented By: Admin: 04/30/22 02:32 Dose: 125 mls/hr Documented By: Infusion: 04/30/22 02:32 Dose: 125 mls/hr Documented By: Admin: 04/29/22 19:23 Dose: 125 mls/hr Documented By: Infusion: 04/29/22 19:00 Dose: 125 mls/hr Documented By: Admin: 04/29/22 11:00 Dose: 125 mls/hr Documented By: ORESTES Magnesium Sulfate/Dextrose (Magnesium Sulfate / D5w) 1 gm in 100 mls @ 50 mls/hr IV Q2H ROBIN Stop: 04/30/22 12:59 Last Infusion: 04/30/22 12:46 Dose: 0 mls/hr Documented By: Admin: 04/30/22 10:38 Dose: 50 mls/hr Documented By: Infusion: 04/30/22 10:38 Dose: 50 mls/hr Documented By: Admin: 04/30/22 09:03 Dose: 50 mls/hr Documented By: LINH Lamotrigine (Lamotrigine 100 Mg Tab) 150 mg PO NOW STA Stop: 04/29/22 07:59 Last Admin: 04/29/22 08:41 Dose: 150 mg Documented By: ORESTES Lamotrigine (Lamotrigine 100 Mg Tab) 150 mg PO BID ROBIN Stop: 05/29/22 20:59 Last Admin: 05/01/22 07:45 Dose: 150 mg Documented By: Admin: 04/30/22 19:53 Dose: 150 mg Documented By: Admin: 04/30/22 08:43 Dose: 150 mg Documented By: Admin: 04/29/22 20:40 Dose: 150 mg Documented By: CHARLEY Lisinopril (Lisinopril 20 Mg Tab) 20 mg PO NOW STA Stop: 04/29/22 08:02 Last Admin: 04/29/22 08:41 Dose: 20 mg Documented By: ORESTES Lisinopril (Lisinopril 20 Mg Tab) 20 mg PO DAILY ROBIN Stop: 05/30/22 08:59 Last Admin: 05/01/22 07:49 Dose: 20 mg Documented By: Admin: 04/30/22 08:43 Dose: 20 mg Documented By: LINH Lorazepam (Lorazepam 1 Mg Tab) Confirm Administered Dose 2 mg .ROUTE .STK-MED ONE Stop: 04/29/22 07:58 Last Admin: 04/29/22 07:59 Dose: 2 mg Documented By: ORESTES Lorazepam (Lorazepam 2 Mg/1 Ml Vial) 2 mg IV NOW STA Stop: 04/29/22 09:10 Last Admin: 04/29/22 09:38 Dose: 2 mg Documented By: ORESTES Lorazepam (Lorazepam 2 Mg/1 Ml Vial) 1 mg IV ONCE ONE Stop: 04/29/22 10:16 Last Admin: 04/29/22 10:39 Dose: 1 mg Documented By: ORESTES Potassium Chloride (Potassium Chloride Crtab 20 Meq Tabcr) 20 meq PO BID ROBIN Stop: 05/01/22 09:01 Last Admin: 05/01/22 08:10 Dose: 20 meq Documented By: Admin: 04/30/22 19:57 Dose: 20 meq Documented By: Admin: 04/30/22 09:02 Dose: 20 meq Documented By: LINH Discharge Plan Visit Data Chief Complaint: Alcohol Withdrawal ED Provider: Karley Mae Discharge Problem: Alcohol withdrawal Patient Disposition: Admitted As Inpatient Discharge Instructions Interventions: ED Discharge Assessment Last Done: 04/29/22 12:27
[2022-04-29] MEDS: lamoTRIgine 100 MG TAB PO SCH (20:40)
[2022-04-29] MEDS: cloNIDine HCL 0.1 MG TAB PO SCH (20:47)
[2022-04-30] MEDS: LACTATED RINGER'S 1,000 ML IV SCH (02:32)
[2022-04-30] MEDS ORDERED: GABAPENTIN 600 MG TAB PO SCH (04:15)
[2022-04-30] MEDS: GABAPENTIN 600 MG TAB PO SCH ×3 (05:00→19:52)
[2022-04-30] MEDS: chlordiazePOXIDE HCl 25 MG CAP PO SCH ×4 (05:00→23:17)
[2022-04-30 06:35] LABS: Hematocrit (blood only) 37.5 % (42.0-52.0); Hemoglobin 13.5 g/dl (14.0-18.0); Mean Corpuscular Hemoglobin 36.9 pg (25.0-34.0); Mean Corpuscular Volume 102.5 fL (80.0-100.0); Mean Platelet Volume 10.5 fL (9.4-12.4); Platelet Count 76 K/uL (130-400); RDW Standard Deviation 48.9 fL (36.4-46.3); Red Blood Count 3.66 M/uL (4.70-6.10); White Blood Count 4.65 K/ul (4.8-10.8)
[2022-04-30 06:40] LABS: BUN Creatinine Ratio 17.5 (10-20); Calcium 8.7 mg/dl (8.5-10.1); Creatinine Clr Calc Pharmacy 159.4 ml/min; Est GFR (African American) 138.9 ml/min; Est GFR (Non-African American) 119.9 ml/min; Magnesium 1.6 mg/dl (1.7-2.4); Potassium 3.2 mmol/L (3.5-5.1)
[2022-04-30] MEDS: lisinopril 20 MG TAB PO SCH (08:43)
[2022-04-30] MEDS: lamoTRIgine 100 MG TAB PO SCH ×2 (08:43→19:53)
[2022-04-30] MEDS: FOLIC ACID 1 MG TAB PO SCH (08:43)
[2022-04-30] MEDS: cloNIDine HCL 0.1 MG TAB PO SCH ×2 (08:47→19:57)
[2022-04-30] MEDS: POTASSIUM CHLORIDE CRTAB 20 MEQ TABCR PO SCH ×2 (09:02→19:57)
[2022-04-30] MEDS: MAGNESIUM SULFATE / D5W 1 GM/100 ML BAG IV SCH ×2 (09:03→10:38)
--- NOTE | 2022-04-30 17:10 | Hospitalist Progress Note ---
Date of Service April 30, 2022 Assessment & Plan (1) Alcohol withdrawal seizure: Plan: Patient with seizures at home suspected alcohol withdrawal seizures. Patient was given benzodiazepines and started on gabapentin in the emergency department This is acute problem with serious risk Librium scheduled with tapering doses, Ativan for backup withdrawal, continue gabapentin tapering doses, seizure precautions Thiamine daily Parenteral hydration with crystalloid solution stopping parenteral hydration chronic seizure disorder this is now unstable, patient with seizures at home, patient will be continued on his Lamictal with the gabapentin also helping. acute on chronic and is much better control now that alcohol withdrawal is being treated continuing lisinopril blood pressure still mildly elevated Acute hypokalemia and acute hypomagnesemia self-limited and repleted on 04/30/2022 DVT prevention will be SCDs unless it becomes more tender than we will use chemoprophylaxis Admission and Anticipated Discharge Date Admission Date: April 29, 2022 Subjective Patient seen in the company of his father. His father supportive of his alcohol cessation course. Patient is less tremulous than he was 1 day prior he is eating lunch his dermatitis is also fading he continues to deny any topical exposure although this appears to be a contact dermatitis Physical Exam Physical Exam: Patient was much less tremulou he i has signs of contact dermatitis on his arms neck and face his cardiac exam is tachycardic his lungs are clear he remains without asterixis his neurological exam is alert and oriented he has no focal loss of strength or sensation Results & Data Results & Data ([facility]) Vital Signs (Past 12 Hours) Vital Signs Temp Pulse Pulse Resp BP Pulse Ox O2 Del Method 04/30/22 16:15 98.6 F 89 16 164/90 H 94 Room Air 04/30/22 11:40 98.1 F 81 18 160/89 H 95 Room Air 04/30/22 07:42 98.8 F 95 H 18 169/86 H 95 Room Air 04/30/22 07:27 79 Laboratory Results Reviewed CBC Reviewed PRP Updated father at the bedside PG Care Time/CCT Total # of Minutes Spent Total Time Spent with Patient: Total time spent is greater than 50% in coordination of care (as documented) at patient's floor/unit and/or counseling patient: Coding Level of Care Code 77220 SUB INP/OBS CARE 3/50MIN Diagnoses Alcohol withdrawal seizure F10.239; R56.9
--- NOTE | 2022-04-30 17:26 | Hospitalist Progress Note ---
Date of Service April 30, 2022 Assessment & Plan (1) Alcohol withdrawal seizure: Plan: Patient with seizures at home suspected alcohol withdrawal seizures. Patient was given benzodiazepines and started on gabapentin in the emergency department This is acute problem with serious risk Librium scheduled with tapering doses, Ativan for backup withdrawal, continue gabapentin tapering doses, seizure precautions Thiamine daily Parenteral hydration with crystalloid solution stopping parenteral hydration chronic seizure disorder this is now unstable, patient with seizures at home, patient will be continued on his Lamictal with the gabapentin also helping. acute on chronic and is much better control now that alcohol withdrawal is being treated continuing lisinopril blood pressure still mildly elevated Acute hypokalemia and acute hypomagnesemia self-limited and repleted on 04/30/2022 Chronic pancytopenia from alcohol abuse is stable and not needed transfusion DVT prevention will be SCDs unless it becomes more tender than we will use chemoprophylaxis Admission and Anticipated Discharge Date Admission Date: April 29, 2022 Results & Data Results & Data ([facility]) Vital Signs (Past 12 Hours) Vital Signs Temp Pulse Pulse Resp BP Pulse Ox O2 Del Method 04/30/22 17:00 89 04/30/22 16:15 98.6 F 89 16 164/90 H 94 Room Air 04/30/22 11:40 98.1 F 81 18 160/89 H 95 Room Air 04/30/22 07:42 98.8 F 95 H 18 169/86 H 95 Room Air 04/30/22 07:27 79 PG Care Time/CCT Total # of Minutes Spent Total Time Spent with Patient: Total time spent is greater than 50% in coordination of care (as documented) at patient's floor/unit and/or counseling patient: Coding Level of Care Code None Diagnoses Alcohol withdrawal seizure F10.239; R56.9
[2022-05-01] MEDS: lamoTRIgine 100 MG TAB PO SCH (07:45)
[2022-05-01] MEDS: chlordiazePOXIDE HCl 25 MG CAP PO SCH (07:48)
[2022-05-01] MEDS: cloNIDine HCL 0.1 MG TAB PO SCH (07:48)
[2022-05-01] MEDS: FOLIC ACID 1 MG TAB PO SCH (07:49)
[2022-05-01] MEDS: lisinopril 20 MG TAB PO SCH (07:49)
[2022-05-01 08:05] LABS: Hematocrit (blood only) 41.3 % (42.0-52.0); Hemoglobin 14.6 g/dl (14.0-18.0); Mean Corpuscular Hemoglobin 36.3 pg (25.0-34.0); Mean Corpuscular Hgb Conc 35.4 g/dL (32.0-36.0); Mean Corpuscular Volume 102.7 fL (80.0-100.0); Mean Platelet Volume 10.6 fL (9.4-12.4); Platelet Count 98 K/uL (130-400); RDW Coefficient of Variation 12.7 % (11.5-14.5); RDW Standard Deviation 48.1 fL (36.4-46.3); Red Blood Count 4.02 M/uL (4.70-6.10); White Blood Count 4.49 K/ul (4.8-10.8)
[2022-05-01] MEDS: POTASSIUM CHLORIDE CRTAB 20 MEQ TABCR PO SCH (08:10)
[2022-05-01] MEDS ORDERED: GABAPENTIN 600 MG TAB PO SCH ×2 (08:15→10:00)
[2022-05-01 12:09] LABS: BUN Creatinine Ratio 17.6 (10-20); Calcium 9.4 mg/dl (8.5-10.1); Creatinine Clr Calc Pharmacy 135.7 ml/min; Est GFR (Non-African American) 112.2 ml/min; Magnesium 1.9 mg/dl (1.7-2.4); Potassium 3.5 mmol/L (3.5-5.1)
--- NOTE | 2022-05-01 15:21 | Discharge Summary ---
Date of Service May 01, 2022 Admission HPI Per Admitting Provider Patient has a history of alcohol abuse and seizure disorder. Reportedly was having seizures at home this morning., Alcohol level was 0 on presentation. Patient was given Ativan in route 0.5 mg given 2 mg of Ativan orally on presentation. Was started on the gabapentin protocol and administered his morning medications as he does have a hypertensive urgency while here in the emergency department. Patient admitted to telemetry for concern for alcohol withdrawal and exacerbating his seizure disorder. Principal Diagnosis alcohol withdrawal seizure disorder dermatitis Discharge Exam Patient was much less tremulous he i has signs of contact dermatitis on his arms neck and face his cardiac exam is tachycardic his lungs are clear he remains without asterixis his neurological exam is alert and oriented he has no focal loss of strength or sensation Discharge Data Allergies Allergy/AdvReac Type Severity Reaction Status Date / Time No Known Allergies Allergy Mild Verified 02/10/22 09:24 Consultations 04/29/22 09:09 ED Decision to Admit Stat Hospital Course (1) Alcohol withdrawal seizure: Patient with seizures at home suspected alcohol withdrawal seizures. Patient was given benzodiazepines and started on gabapentin in the emergency department This is acute problem with serious risk Librium will be tapered as an outpt, continue gabapentin for two additional weeks suggested discussing naloxone with his Primary care chronic seizure disorder this is now unstable, patient with seizures at home, patient will be continued on his Lamictal with the gabapentin also helping. acute on chronic and is much better control now that alcohol withdrawal is being treated continuing lisinopril blood pressure still mildly elevated Acute hypokalemia and acute hypomagnesemia self-limited and repleted on 04/30/2022 Chronic pancytopenia from alcohol abuse is stable and not needed transfusion Total Time Total Time Spent Total Time Spent (In Minutes): It required greater than 30 minutes to prepare this patient for discharge Discharge Plan Discharge Items Patient Disposition: Home - Self-Care Reason For Visit: ALCOHOL WITHDRAWAL, SEIZURE DISORDER Discharge Diagnosis: alcohol withdrawal seizure disorder dematitis Activity: Resume your previous activity Non-emergency contact: Primary Care Provider Call non-emergency contact if: your symptoms worsen Follow-up/Referrals: Luis Antonio Guevara [Primary Care Provider] - 05/02/22 9:20 am Diet: Regular Addtl Attending Provider Instructions: Please do not drink alcohol, please see a alcohol counsellor see your primary care doctor for evaluation of your rash you may use a topical Benadryl cream to help your rash Pending Studies at Discharge: No Stand-Alone Forms: My [facility], Work/School Release, Smoking Cessation Medications and DC Order Prescriptions: New chlordiazepoxide HCl 10 mg capsule 10 mg PO UD Qty: 14 0RF Rx Instructions: 2 pills every 8 hrs till 05/03->1 3x's a day on 05/04 then 1 twice a day 05/05 then one at night 05/06 gabapentin 300 mg capsule 300 mg PO BID 10 Days Qty: 20 0RF loratadine [Claritin] 10 mg tablet 10 mg PO DAILY Qty: 14 0RF famotidine [Pepcid] 20 mg tablet 20 mg PO BID Qty: 14 0RF Continued lamotrigine [Lamictal] 150 mg tablet 150 mg PO BID Rx Instructions: Taken @ 0730 clonidine HCl 0.1 mg tablet 0.2 mg PO BID lisinopril 20 mg tablet 20 mg PO DAILY folic acid 1 mg tablet 1 mg PO DAILY Discharge Orders: Discharge Order (Routine); Ordered 05/01/22 Ordered By: Ramon Jama Admission Data Admit Date/Time: 04/29/22 09:13 Attending Provider: Ramon Jama Admit Provider: Ramon Jama Primary Care Provider: Luis Antonio Guevara Other Providers: Ramon Jama Other Interventions: Discharge Summary Assessment (RN) Last Done: 05/01/22 13:20 Coding Level of Care Code HOSP INP/OBS DISCH >30 MIN Diagnoses Alcohol withdrawal seizure F10.239; R56.9
[2022-05-02] MEDS ORDERED: chlordiazePOXIDE HCl 5 MG CAP PO SCH (18:00)
[2022-05-02] MEDS ORDERED: GABAPENTIN 600 MG TAB PO SCH ×2 (20:15→22:00)
== END 2022-05-01 16:16 | disposition home or self-care (01) | DRG 897 ==
LOC: ED 07:31 → EDINP 09:13 → 4W 12:27

== ENCOUNTER 2022-10-26 17:20 | Inpatient (IN) ==
[2022-10-26] MEDS ORDERED: SODIUM CHLORIDE 0.9% 2,000 ML IV SCH (17:30)
[2022-10-26] MEDS ORDERED: FOLIC ACID 1 MG in SYRINGE 9.8 ML IV STA (17:38)
[2022-10-26] MEDS ORDERED: LORazepam 2 MG/1 ML VIAL IV STA ×3 (17:38→19:58)
[2022-10-26] MEDS ORDERED: THIAMINE HCL 100 MG in SYRINGE 9 ML IV STA (17:38)
--- NOTE | 2022-10-26 17:40 | Emergency Department Note ---
Impression & Plan Alcohol withdrawal seizure Admit ED Provider Note HPI: The patient is a 47-year-old gentleman with history of alcohol abuse, history of alcohol withdrawal seizure, also history of seizure disorder currently on Lamictal, presents the emergency department with chief complaint of seizure. Patient is a poor historian on arrival, per EMS report he did have a seizure in route and was given 2 of Ativan IV. Patient is alert on arrival, he is oriented to place but not time, he is oriented to self. Patient does not exhibit any focal deficits but does have some resting tremulousness of the right upper extremity and right lower extremity. ROS: - Per HPI Differential Diagnosis: Alcohol withdrawal syndrome, delirium tremens, epilepsy, amongst other potential pathologies. *Outpatient medications and allergy history reviewed. *Pertinent external medical records reviewed. PE: General: Alert, anxious appearing, tremulous HEENT: Normocephalic, trachea midline Eyes: Extraocular eye movement is intact, no scleral erythema Pulmonary: Clear to auscultation bilaterally, no wheezing Cardio: Regular rate and rhythm GI: Abdomen is soft to palpation : No suprapubic tenderness MSK: No evidence of trauma or malformation of the extremities, no edema Skin: No evidence of rash Neuro: Alert, no focal deficits Psychiatric: Alert, anxious appearing, overall cooperative personnel monitor: (As interpreted by myself): - An order was placed for continuous cardiac monitoring - Patient was noted to be in sinus rhythm with a rate of 90 EKG: (As interpreted by myself): Rate: 91 Rhythm: Normal sinus rhythm Intervals: Within normal limits ST changes: No ST elevation Time: 1732 Interventions provided in ED: -IV Ativan, IV fluid bolus, IV thiamine, IV folic acid Medical Decision Making: Shortly after the patient arrived, patient was given another dose of IV Ativan. Lab work was obtained, patient was maintained on media monitor. Lab work shows no leukocytosis, hemoglobin is low but stable at 12.8, chronic thrombocytopenia noted with platelet count of 56. CMP shows transaminitis with elevated bilirubin at 2.0 which is near the patient's baseline. Patient's blood alcohol level returns at 27.4. CT imaging of the head was obtained that does not show any evidence of any acute intracranial bleeding, chest x-ray does not show any acute process. Patient was given multiple doses of Ativan here in the ED, overall his presentation is consistent with alcohol withdrawal for which the patient does have a history. I discussed the case with the on-call hospitalist, Dr. Lombardo, and the patient was placed for admission in improved condition for further management. Consultants: Hospitalist, Dr. Lombardo Disposition discussion held by myself with: Patient and family member at the bedside * CRITICAL CARE TIME: ( 42 ) minutes -Time spent independent of any procedures and management of patient with acute alcohol withdrawal requiring administration of IV benzodiazepine medications for stabilization, interpretation of diagnostic studies, time spent at the bedside, discussion with other physicians and arrangement of admission Diagnosis: 1. Alcohol withdrawal seizure, acute 2. Alcohol withdrawal, acute 3. Transaminitis, chronic Disposition: Admission Thierry Hurst, Emergency Medicine Past Med/Surg History Medical History Alcoholism Delirium tremens Essential hypertension Metabolic encephalopathy Seizures (~11/16/21) Surgical History No pertinent past surgical history Family History Father Skin cancer of face Denies family history of Alcoholism Seizure disorder Social History Smoking Status: Never smoker Tobacco Type: Cigarettes Cigarettes Per Day: 10; Second Hand Exposure: No; Do You Dip or Chew Tobacco: No; Hx Alcohol Use: Yes Alcohol type: beer and hard liquor Alcohol type Comment: DAILY consumption, mixture of bottle of wine, bottle of liquor, and/or beer Hx Substance Use: No Preferred Language: Tongan Communication Ability: Effective Dye Lab Technician Required: No Beliefs That Will Affect Care: None marital status: Single marital status details: x 2 Current Living Situation: Parent Current Living Situation Comment: lives w/ father in [place] current occupational status: 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 [place] How many Children do You have: 0 Feels Safe at Home: Yes Assistive Devices: None Allergies Allergies Allergy/AdvReac Type Severity Reaction Status Date / Time No Known Allergies Allergy Mild Verified 05/24/22 13:20 Home Meds Home Medications Medication Instructions Recorded Confirmed lamotrigine 150 mg tablet 150 mg PO BID 01/13/21 10/26/22 (Lamictal) clonidine HCl 0.1 mg tablet 0.2 mg PO BID 11/11/21 10/26/22 folic acid 1 mg tablet 1 mg PO DAILY 11/11/21 10/26/22 lisinopril 20 mg tablet 20 mg PO DAILY 11/11/21 10/26/22 Previous Rx's Medication Instructions Recorded loratadine 10 mg tablet (Claritin) 10 mg PO DAILY #14 tabs 05/01/22 fluocinonide 0.05 % topical cream 1 applic topical BID #60 grams 06/20/22 Results & Data (ED) Vital Signs Vital Signs - 24 hr 10/26/22 17:43 10/26/22 17:46 10/26/22 18:15 Temperature 36.6 C Temperature Source Oral Pulse Rate 90 88 Pulse Rate [Right Finger] 95 H Pulse Rhythm [Right Finger] Regular Pulse Strength [Right Finger] Normal Respiratory Rate 30 H 19 Respiratory Effort / Characteristics Non-Labored Non-Labored Spontaneous Respiratory Depth Normal Normal Respiratory Pattern Regular Regular Blood Pressure 161/93 H Blood Pressure [Right Arm] 160/111 H Blood Pressure Mean 115 Blood Pressure Mean [Right Arm] 127 Blood Pressure Position [Right Arm] Pulse Oximetry 93 95 Oxygen Delivery Method Room Air Room Air Sepsis Recent Fever Within 48 Hours No Sepsis New/Unexplained Change in Mental Status N/A Sepsis Action Taken by Nursing No Action Required 10/26/22 19:09 10/26/22 20:33 10/26/22 21:45 Temperature 36.8 C Temperature Source Oral Pulse Rate 86 Pulse Rate [Right Finger] 90 93 H Pulse Rhythm [Right Finger] Regular Regular Pulse Strength [Right Finger] Normal Normal Respiratory Rate 18 19 Respiratory Effort / Characteristics Non-Labored Spontaneous Non-Labored Spontaneous Respiratory Depth Normal Normal Respiratory Pattern Regular Regular Blood Pressure Blood Pressure [Right Arm] 155/96 H 160/108 H Blood Pressure Mean Blood Pressure Mean [Right Arm] 115 125 Blood Pressure Position [Right Arm] Lying Pulse Oximetry 94 95 Oxygen Delivery Method Room Air Room Air Sepsis Recent Fever Within 48 Hours Sepsis New/Unexplained Change in Mental Status Sepsis Action Taken by Nursing Laboratory Data 10/26/22 17:46 10/26/22 17:46 Lab Results 10/26/22 10/26/22 10/26/22 Range/Units 17:46 17:46 17:46 WBC 5.94 (4.8-10.8) K/ul RBC 3.41 L (4.70-6.10) M/uL Hgb 12.8 L (14.0-18.0) g/dl Hct 37.2 L (42.0-52.0) % MCV 109.1 H (80.0-100.0) fL MCH 37.5 H (25.0-34.0) pg MCHC 34.4 (32.0-36.0) g/dL RDW Std Deviation 51.3 H (36.4-46.3) fL RDW Coeff of Amena 12.7 (11.5-14.5) % Plt Count 56 L (130-400) K/uL MPV 10.3 (9.4-12.4) fL Immature Gran % (Auto) 0.8 % Neut % (Auto) 74.4 % Lymph % (Auto) 14.8 % Davis % (Auto) 9.1 % Eos % (Auto) 0.2 % Baso % (Auto) 0.7 % Neut # (Auto) 4.42 (1.40-6.50) K/uL Lymph # (Auto) 0.88 L (1.2-3.4) K/uL Davis # (Auto) 0.54 (0.11-0.59) K/uL Eos # (Auto) 0.01 (0-0.50) K/uL Baso # (Auto) 0.04 (0-0.2) K/uL Immature Gran # (Auto) 0.05 (0.01-0.20) K/uL PT (9.0-12.0) Seconds INR (0.9-1.1) APTT (21.0-31.0) Seconds PTT Ratio Sodium 139 (136-145) mmol/L Potassium 4.3 (3.5-5.1) mmol/L Chloride 102 (98-107) mmol/L Carbon Dioxide 10 L (21-32) mmol/L Anion Gap 27 H (3-11) BUN 8 (6-23) mg/dl Creatinine 0.91 (0.6-1.4) mg/dl Est Cr Clr Drug Dosing 109.2 ml/min Est GFR ( Amer) 117.5 ml/min Est GFR (Non-Af Amer) 101.4 ml/min BUN/Creatinine Ratio 8.8 L (10-20) Glucose 143 H (70-99(Fasting)) mg/dl Calcium 8.7 (8.6-10.3) mg/dl Total Bilirubin 2.0 H (0.2-1.0) mg/dl AST 178 H (13-39) U/L ALT 71 H (7-52) U/L Alkaline Phosphatase 156 H (34-104) U/L Total Protein 7.8 (6.0-8.3) gm/dl Albumin 4.2 (3.4-5.0) gm/dl Globulin 3.6 (2.5-4.0) gm/dl Albumin/Globulin Ratio 1.2 (0.9-2) TSH 1.793 (0.300-4.500) uIu/ml Urine Color Urine Appearance (Clear) Urine pH (4.5-7.5) Ur Specific [place] (1.000-1.030) Urine Protein (Negative) Urine Glucose (UA) (Negative) Urine Ketones (Negative) Urine Blood (Negative) Urine Nitrite (Negative) Urine Bilirubin (Negative) Urine Urobilinogen (Negative) Ur Leukocyte Esterase (Negative) Urine WBC (Auto) (0-5) /hpf Urine RBC (Auto) (0-4) /hpf U Hyaline Cast (Auto) (0-5) /lpf U Epithel Cells (Auto) (0-5) /lpf Urine Bacteria (Auto) (Negative) Salicylates (3.0-30) mg/dl Urine Opiates Screen (Neg) Ur Methadone, Qual (Neg) Acetaminophen (10-30) ug/ml Urine Barbiturates (Neg) Ur Phencyclidine (PCP) (Neg) U Amphetamin/Meth Scrn (Neg) MDMA (Ecstasy) Screen (Neg) U Benzodiazepines Scrn (Neg) Ur Cocaine Metabolite (Neg) U Marijuana (THC) Screen (Neg) Ethyl Alcohol mg/dL (<10.0) mg/dl 10/26/22 10/26/22 10/26/22 Range/Units 17:46 17:46 18:03 WBC (4.8-10.8) K/ul RBC (4.70-6.10) M/uL Hgb (14.0-18.0) g/dl Hct (42.0-52.0) % MCV (80.0-100.0) fL MCH (25.0-34.0) pg MCHC (32.0-36.0) g/dL RDW Std Deviation (36.4-46.3) fL RDW Coeff of Amena (11.5-14.5) % Plt Count (130-400) K/uL MPV (9.4-12.4) fL Immature Gran % (Auto) % Neut % (Auto) % Lymph % (Auto) % Davis % (Auto) % Eos % (Auto) % Baso % (Auto) % Neut # (Auto) (1.40-6.50) K/uL Lymph # (Auto) (1.2-3.4) K/uL Davis # (Auto) (0.11-0.59) K/uL Eos # (Auto) (0-0.50) K/uL Baso # (Auto) (0-0.2) K/uL Immature Gran # (Auto) (0.01-0.20) K/uL PT 12.4 H (9.0-12.0) Seconds INR 1.1 (0.9-1.1) APTT 27.3 (21.0-31.0) Seconds PTT Ratio 1.0 Sodium (136-145) mmol/L Potassium (3.5-5.1) mmol/L Chloride (98-107) mmol/L Carbon Dioxide (21-32) mmol/L Anion Gap (3-11) BUN (6-23) mg/dl Creatinine (0.6-1.4) mg/dl Est Cr Clr Drug Dosing ml/min Est GFR ( Amer) ml/min Est GFR (Non-Af Amer) ml/min BUN/Creatinine Ratio (10-20) Glucose (70-99(Fasting)) mg/dl Calcium (8.6-10.3) mg/dl Total Bilirubin (0.2-1.0) mg/dl AST (13-39) U/L ALT (7-52) U/L Alkaline Phosphatase (34-104) U/L Total Protein (6.0-8.3) gm/dl Albumin (3.4-5.0) gm/dl Globulin (2.5-4.0) gm/dl Albumin/Globulin Ratio (0.9-2) TSH (0.300-4.500) uIu/ml Urine Color Urine Appearance (Clear) Urine pH (4.5-7.5) Ur Specific [place] (1.000-1.030) Urine Protein (Negative) Urine Glucose (UA) (Negative) Urine Ketones (Negative) Urine Blood (Negative) Urine Nitrite (Negative) Urine Bilirubin (Negative) Urine Urobilinogen (Negative) Ur Leukocyte Esterase (Negative) Urine WBC (Auto) (0-5) /hpf Urine RBC (Auto) (0-4) /hpf U Hyaline Cast (Auto) (0-5) /lpf U Epithel Cells (Auto) (0-5) /lpf Urine Bacteria (Auto) (Negative) Salicylates < 3.0 L (3.0-30) mg/dl Urine Opiates Screen (Neg) Ur Methadone, Qual (Neg) Acetaminophen < 3 L (10-30) ug/ml Urine Barbiturates (Neg) Ur Phencyclidine (PCP) (Neg) U Amphetamin/Meth Scrn (Neg) MDMA (Ecstasy) Screen (Neg) U Benzodiazepines Scrn (Neg) Ur Cocaine Metabolite (Neg) U Marijuana (THC) Screen (Neg) Ethyl Alcohol mg/dL 27.4 H (<10.0) mg/dl 10/26/22 10/26/22 Range/Units 18:52 18:52 WBC (4.8-10.8) K/ul RBC (4.70-6.10) M/uL Hgb (14.0-18.0) g/dl Hct (42.0-52.0) % MCV (80.0-100.0) fL MCH (25.0-34.0) pg MCHC (32.0-36.0) g/dL RDW Std Deviation (36.4-46.3) fL RDW Coeff of Amena (11.5-14.5) % Plt Count (130-400) K/uL MPV (9.4-12.4) fL Immature Gran % (Auto) % Neut % (Auto) % Lymph % (Auto) % Davis % (Auto) % Eos % (Auto) % Baso % (Auto) % Neut # (Auto) (1.40-6.50) K/uL Lymph # (Auto) (1.2-3.4) K/uL Davis # (Auto) (0.11-0.59) K/uL Eos # (Auto) (0-0.50) K/uL Baso # (Auto) (0-0.2) K/uL Immature Gran # (Auto) (0.01-0.20) K/uL PT (9.0-12.0) Seconds INR (0.9-1.1) APTT (21.0-31.0) Seconds PTT Ratio Sodium (136-145) mmol/L Potassium (3.5-5.1) mmol/L Chloride (98-107) mmol/L Carbon Dioxide (21-32) mmol/L Anion Gap (3-11) BUN (6-23) mg/dl Creatinine (0.6-1.4) mg/dl Est Cr Clr Drug Dosing ml/min Est GFR ( Amer) ml/min Est GFR (Non-Af Amer) ml/min BUN/Creatinine Ratio (10-20) Glucose (70-99(Fasting)) mg/dl Calcium (8.6-10.3) mg/dl Total Bilirubin (0.2-1.0) mg/dl AST (13-39) U/L ALT (7-52) U/L Alkaline Phosphatase (34-104) U/L Total Protein (6.0-8.3) gm/dl Albumin (3.4-5.0) gm/dl Globulin (2.5-4.0) gm/dl Albumin/Globulin Ratio (0.9-2) TSH (0.300-4.500) uIu/ml Urine Color Yellow Urine Appearance Clear (Clear) Urine pH 6.5 (4.5-7.5) Ur Specific [place] 1.013 (1.000-1.030) Urine Protein 2+ H (Negative) Urine Glucose (UA) Negative (Negative) Urine Ketones 1+ H (Negative) Urine Blood 3+ H (Negative) Urine Nitrite Negative (Negative) Urine Bilirubin Negative (Negative) Urine Urobilinogen Negative (Negative) Ur Leukocyte Esterase Negative (Negative) Urine WBC (Auto) 1-5 (0-5) /hpf Urine RBC (Auto) 10-30 H (0-4) /hpf U Hyaline Cast (Auto) 1-5 (0-5) /lpf U Epithel Cells (Auto) 10-20 H (0-5) /lpf Urine Bacteria (Auto) Negative (Negative) Salicylates (3.0-30) mg/dl Urine Opiates Screen Neg (Neg) Ur Methadone, Qual Neg (Neg) Acetaminophen (10-30) ug/ml Urine Barbiturates Neg (Neg) Ur Phencyclidine (PCP) Neg (Neg) U Amphetamin/Meth Scrn Neg (Neg) MDMA (Ecstasy) Screen Neg (Neg) U Benzodiazepines Scrn Neg (Neg) Ur Cocaine Metabolite Neg (Neg) U Marijuana (THC) Screen Neg (Neg) Ethyl Alcohol mg/dL (<10.0) mg/dl Administered Medications Discontinued Medications Sodium Chloride (Nss 1000ml) 2,000 mls @ 999 mls/hr IV .[id number] ROBIN Stop: 10/26/22 19:30 Last Infusion: 10/26/22 19:12 Dose: 0 mls/hr Documented By: Admin: 10/26/22 18:00 Dose: 999 mls/hr Documented By: ESTEFANÍA Thiamine HCl 100 mg/ Syringe 10 mls @ 2 mls/min IV NOW STA Stop: 10/26/22 17:42 Last Admin: 10/26/22 18:19 Dose: 2 mls/min Documented By: LINDA Folic Acid 1 mg/ Syringe 10 mls @ 5 mls/min IV NOW STA Stop: 10/26/22 17:39 Last Admin: 10/26/22 18:19 Dose: 5 mls/min Documented By: LINDA Lorazepam (Lorazepam 2 Mg/1 Ml Vial) 1 mg IV NOW STA Stop: 10/26/22 17:39 Last Admin: 10/26/22 17:59 Dose: 1 mg Documented By: ESTEFANÍA Lorazepam (Lorazepam 2 Mg/1 Ml Vial) 1 mg IV NOW STA Stop: 10/26/22 19:10 Last Admin: 10/26/22 19:12 Dose: 1 mg Documented By: LINDA Lorazepam (Lorazepam 2 Mg/1 Ml Vial) 2 mg IV NOW STA Stop: 10/26/22 19:59 Last Admin: 10/26/22 20:37 Dose: 2 mg Documented By: LINDA Imaging Data Radiologist's Impression: Head CT 10/26/22 17:38 CT head/brain wo con CLINICAL HISTORY: 47 years-old Male with AMS. Acutely altered mental status TECHNIQUE: Multiple axial CT images of the head were obtained without contrast. A dose lowering technique was utilized adhering to the principles of ALARA. CT DOSE: 703.85 mGy.cm COMPARISON: 02/10/2022 FINDINGS: No acute intracranial hemorrhage, midline shift, intracranial mass, hydrocephalus, territorial ischemia or abnormal extra-axial collection. The calvarium is intact. The paranasal sinuses, mastoid air cells, and middle ear cavities are clear. IMPRESSION: No acute intracranial abnormality. ACT 112: Negative or not required by law. The above report was generated using voice recognition software. It may contain grammatical, syntax or spelling errors. Electronically signed by: Refugio Palacios M.D. 10/26/2022 6:37 PM Chest X-Ray 10/26/22 17:39 XR chest 1V portable HISTORY: 47 years-old Male fall acute chest trauma status post fall COMPARISON: 01/13/2021 TECHNIQUE: AP view of the chest FINDINGS: Cardiomediastinal and hilar silhouettes are within normal limits. No pneumothorax, pleural effusion, airspace consolidation or pulmonary edema. Bones are grossly intact. IMPRESSION: No acute process. ACT 112: Negative or not required by law. The above report was generated using voice recognition software. It may contain grammatical, syntax or spelling errors. Electronically signed by: Refugio Palacios M.D. 10/26/2022 6:01 PM Discharge Plan Visit Data Chief Complaint: Alcohol Withdrawal ED Provider: Thierry Hurst Discharge Problem: Alcohol withdrawal seizure Forms Stand Alone Forms: [facility], Suicide Prevention Resources Prescriptions Prescriptions: No Action fluocinonide 0.05 % cream 1 applic topical BID Qty: 60 0RF Rx Instructions: Apply to areas of the trunk and extremities twice daily x 2 weeks as directed. lamotrigine [Lamictal] 150 mg tablet 150 mg PO BID Rx Instructions: Taken @ 0730 clonidine HCl 0.1 mg tablet 0.2 mg PO BID lisinopril 20 mg tablet 20 mg PO DAILY folic acid 1 mg tablet 1 mg PO DAILY loratadine [Claritin] 10 mg tablet 10 mg PO DAILY Qty: 14 0RF Referrals Referrals: Luis Antonio Guevara [Primary Care Provider] -
--- NOTE | 2022-10-26 18:02 | XRay Report ---
XR chest 1V portable HISTORY: 47 years-old Male fall acute chest trauma status post fall COMPARISON: 01/13/2021 TECHNIQUE: AP view of the chest FINDINGS: Cardiomediastinal and hilar silhouettes are within normal limits. No pneumothorax, pleural effusion, airspace consolidation or pulmonary edema. Bones are grossly intact. IMPRESSION: No acute process. ACT 112: Negative or not required by law. The above report was generated using voice recognition software. It may contain grammatical, syntax o r spelling errors. Electronically signed by: Refugio Palacios M.D. 10/26/2022 6:01 PM
[2022-10-26 18:18] LABS: Basophils # (auto) 0.04 K/uL (0-0.2); Basophils % (auto) 0.7 %; Eosinophils # (auto) 0.01 K/uL (0-0.50); Eosinophils % (auto) 0.2 %; Hematocrit (blood only) 37.2 % (42.0-52.0); Hemoglobin 12.8 g/dl (14.0-18.0); Immature Granulocytes # (auto) 0.05 K/uL (0.01-0.20); Immature Granulocytes % (auto) 0.8 %; Lymphocytes # (auto) 0.88 K/uL (1.2-3.4); Lymphocytes % (auto) 14.8 %; Mean Corpuscular Hemoglobin 37.5 pg (25.0-34.0); Mean Corpuscular Hgb Conc 34.4 g/dL (32.0-36.0); Mean Corpuscular Volume 109.1 fL (80.0-100.0); Mean Platelet Volume 10.3 fL (9.4-12.4); Monocytes # (auto) 0.54 K/uL (0.11-0.59); Monocytes % (auto) 9.1 %; Neutrophils # (auto) 4.42 K/uL (1.40-6.50); Neutrophils % (auto) 74.4 %; Platelet Count 56 K/uL (130-400); RDW Coefficient of Variation 12.7 % (11.5-14.5); RDW Standard Deviation 51.3 fL (36.4-46.3); Red Blood Count 3.41 M/uL (4.70-6.10); White Blood Count 5.94 K/ul (4.8-10.8)
[2022-10-26 18:34] LABS: Acetaminophen < 3 ug/ml (10-30); Salicylate < 3.0 mg/dl (3.0-30)
[2022-10-26 18:36] LABS: Albumin Globulin Ratio 1.2 (0.9-2); Albumin Level 4.2 gm/dl (3.4-5.0); BUN Creatinine Ratio 8.8 (10-20); Calcium 8.7 mg/dl (8.6-10.3); Creatinine Clr Calc Pharmacy 109.2 ml/min; Est GFR (African American) 117.5 ml/min; Est GFR (Non-African American) 101.4 ml/min; Globulin 3.6 gm/dl (2.5-4.0); Potassium 4.3 mmol/L (3.5-5.1); Total Protein 7.8 gm/dl (6.0-8.3)
--- NOTE | 2022-10-26 18:38 | CT Scan Report ---
CT head/brain wo con CLINICAL HISTORY: 47 years-old Male with AMS. Acutely altered mental status TECHNIQUE: Multiple axial CT images of the head were obtained without contrast. A dose lowering tech nique was utilized adhering to the principles of ALARA. CT DOSE: 703.85 mGy.cm COMPARISON: 02/10/2022 FINDINGS: No acute intracranial hemorrhage, midline shift, intracranial mass, hydrocephalus, territorial ischem ia or abnormal extra-axial collection. The calvarium is intact. The paranasal sinuses, mastoid air c ells, and middle ear cavities are clear. IMPRESSION: No acute intracranial abnormality. ACT 112: Negative or not required by law. The above report was generated using voice recognition software. It may contain grammatical, syntax o r spelling errors. Electronically signed by: Refugio Palacios M.D. 10/26/2022 6:37 PM
[2022-10-26 19:02] LABS: Appearance Urine Clear (Clear); Bacteria Urine Automated Negative (Negative); Bilirubin Urine Negative (Negative); Blood Urine 3+ (Negative); Color Urine Yellow; Glucose Urine UA Negative (Negative); Ketones Urine 1+ (Negative); Leukocyte Esterase Urine Negative (Negative); Nitrite Urine Negative (Negative); Protein Urine 2+ (Negative); Specific Gravity Urine 1.013 (1.000-1.030); Urobilinogen Urine Negative (Negative); pH Urine 6.5 (4.5-7.5)
[2022-10-26 19:35] LABS: Amphetamines+Metham, Urine Neg (Neg); Barbiturates, Urine Neg (Neg); Benzodiazepine, Urine Neg (Neg); Cocaine, Urine Neg (Neg); MDMA (Ecstacy), Urine Neg (Neg); Methadone, Urine Neg (Neg); Opiate, Urine Neg (Neg); Phencyclidine, Urine Neg (Neg)
--- NOTE | 2022-10-26 21:33 | History & Physical Report ---
Date of Service October 26, 2022 Assessment & Plan (1) Alcohol withdrawal seizure: (2) Alcoholic liver disease: (3) Essential hypertension: (4) Alcoholism: (5) Seizure: (6) Elevated LFTs: Plan Alcohol withdrawal seizure/alcoholism/history of delirium tremens- The patient will be admitted to telemetry for serial cardiac enzymes, serial EKG's, cardiac rhythm monitoring He has been given by the ED the following: Thiamine 100 mg IV, folic acid 1 mg IV, lorazepam 1 mg IV x2, and normal saline 2 L We will give an additional 2 mg IV x1 now, and activate the AWSS protocol with IV Ativan Clonidine 0.2 mg p.o. twice daily with dose now NSS + KCl 20 mEq at 100 mils per hour Thiamine 100 mg p.o. every morning Folic acid 1 mg p.o. every morning Start gabapentin withdrawal protocol for active seizures Follow serial CBC with differential, chemistry profile and magnesium level Urine drug screen was negative, and alcohol level was 27.4 Hypertension-clonidine as noted above, 0.2 mg p.o. twice daily, and continue lisinopril 20 mg daily Thrombocytopenia- Platelets 56, with range from 55-121 Follow serially Alcoholic liver disease- AST 178, with range 83-174 ALT 71, with range 47-87 Add a PT/INR/PTT History of Present Illness Chief Complaint: The patient presents to the emergency department with report of a seizure likely due to alcohol withdrawal, as he reports his last alcohol intake was 3 days ago. Primary Care Provider: Luis Antonio Guevara The patient is a 47-year-old male with a past medical history including alcoholism, delirium tremens, seizures, thrombocytopenia, closed head injury, alcoholic liver disease, hepatic encephalopathy, alcohol withdrawal seizure and hypertension. Patient reports he had a seizure earlier in the day today, that is out last alcohol intake was 3 days ago, and had severe shakes at this time. He reports that he been taking his other medications as directed but has not had his evening dosages yet Allergies Allergy/AdvReac Type Severity Reaction Status Date / Time No Known Allergies Allergy Mild Verified 05/24/22 13:20 Home Medications Medication Instructions Recorded Confirmed Type lamotrigine 150 mg tablet 150 mg PO BID 01/13/21 10/26/22 History (Lamictal) clonidine HCl 0.1 mg tablet 0.2 mg PO BID 11/11/21 10/26/22 History folic acid 1 mg tablet 1 mg PO DAILY 11/11/21 10/26/22 History lisinopril 20 mg tablet 20 mg PO DAILY 11/11/21 10/26/22 History loratadine 10 mg tablet (Claritin) 10 mg PO DAILY #14 tabs 05/01/22 10/26/22 Rx fluocinonide 0.05 % topical cream 1 applic topical BID #60 grams 06/20/22 10/26/22 Rx Past Med/Surg History Medical History Alcoholism Delirium tremens Essential hypertension Metabolic encephalopathy Seizures (~11/16/21) Surgical History No pertinent past surgical history Family History Father Skin cancer of face Denies family history of Alcoholism Seizure disorder Social History Smoking Status: Never smoker Tobacco Type: Cigarettes Cigarettes Per Day: 10; Second Hand Exposure: No; Do You Dip or Chew Tobacco: No; Hx Alcohol Use: Yes Alcohol type: beer and hard liquor Alcohol type Comment: DAILY consumption, mixture of bottle of wine, bottle of liquor, and/or beer Hx Substance Use: No Preferred Language: Tamazight Communication Ability: Effective Pipelines Laborer Required: No Beliefs That Will Affect Care: None marital status: Single marital status details: x 2 Current Living Situation: Parent Current Living Situation Comment: lives w/ father in [place] current occupational status: 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[employer] How many Children do You have: 0 Feels Safe at Home: Yes Assistive Devices: None Review of Systems Review of Systems: The patient denies chest pain, palpitations, shortness of breath, dyspnea on exertion, cough, lower extremity swelling, sore throat, fevers, chills, sweats, weight change, fatigue, nausea, vomiting, diarrhea , constipation, abdominal pain, pelvic pain, blood in urine or stool, dysuria, urinary frequency or urgency, loss of consciousness, rash, abnormal bruising or bleeding, imbalance, focal or generalized weakness, numbness or tingling in arms or legs, generalized arthralgias or myalgias, back or neck pain, or night sweats. The review of systems is otherwise negative other than for that already noted above, and at least 10 systems have been reviewed. Physical Exam Physical Exam: The patient is awake, alert and oriented 3, has whole body shakes and tremors, normocephalic and atraumatic, sitting upright in bed and in no otherwise acute distress. HEENT--PERRL, EOMI, mucous membranes and oropharynx dry. Neck--supple. No JVD. No bruits. Thyroid normal, trachea midline, no adenopathy. Heart--normal S1 and S2. No murmurs, rubs or gallops. Lungs--clear bilaterally, no respiratory distress, no accessory muscle use. Abdomen--normal bowel sounds and soft. Nontender. Nondistended, no hernias or masses, no organomegaly. Extremities--no cyanosis or clubbing. No edema. Dermatologic--normal skin turgor, normal color, no abnormal lymph nodes, no rash. Neurologic--cranial nerves II through XII grossly intact. Limited exam Rheumatologic-Limited exam Psychiatric--anxious and with tremors Results & Data Results & Data Vital Signs (Past 12 Hours) Vital Signs Temp Pulse Pulse Resp BP BP Pulse Ox 10/26/22 20:33 36.8 C 93 H 19 160/108 H 95 10/26/22 19:09 90 18 155/96 H 94 10/26/22 18:15 95 H 19 160/111 H 95 10/26/22 17:46 88 10/26/22 17:43 36.6 C 90 30 H 161/93 H 93 O2 Del Method 10/26/22 20:33 Room Air 10/26/22 19:09 Room Air 10/26/22 18:15 Room Air 10/26/22 17:46 10/26/22 17:43 Room Air Laboratory Results Laboratory Results WBC 5.94 K/ul (4.8-10.8) 10/26/22 17:46 RBC 3.41 M/uL (4.70-6.10) L 10/26/22 17:46 Hgb 12.8 g/dl (14.0-18.0) L 10/26/22 17:46 Hct 37.2 % (42.0-52.0) L 10/26/22 17:46 MCV 109.1 fL (80.0-100.0) H 10/26/22 17:46 MCH 37.5 pg (25.0-34.0) H 10/26/22 17:46 MCHC 34.4 g/dL (32.0-36.0) 10/26/22 17:46 RDW Std Deviation 51.3 fL (36.4-46.3) H 10/26/22 17:46 RDW Coeff of Amena 12.7 % (11.5-14.5) 10/26/22 17:46 Plt Count 56 K/uL (130-400) L 10/26/22 17:46 MPV 10.3 fL (9.4-12.4) 10/26/22 17:46 Immature Gran % (Auto) 0.8 % 10/26/22 17:46 Neut % (Auto) 74.4 % 10/26/22 17:46 Lymph % (Auto) 14.8 % 10/26/22 17:46 Randall % (Auto) 9.1 % 10/26/22 17:46 Eos % (Auto) 0.2 % 10/26/22 17:46 Baso % (Auto) 0.7 % 10/26/22 17:46 Neut # (Auto) 4.42 K/uL (1.40-6.50) 10/26/22 17:46 Lymph # (Auto) 0.88 K/uL (1.2-3.4) L 10/26/22 17:46 Randall # (Auto) 0.54 K/uL (0.11-0.59) 10/26/22 17:46 Eos # (Auto) 0.01 K/uL (0-0.50) 10/26/22 17:46 Baso # (Auto) 0.04 K/uL (0-0.2) 10/26/22 17:46 Immature Gran # (Auto) 0.05 K/uL (0.01-0.20) 10/26/22 17:46 Sodium 139 mmol/L (136-145) 10/26/22 17:46 Potassium 4.3 mmol/L (3.5-5.1) 10/26/22 17:46 Chloride 102 mmol/L (98-107) 10/26/22 17:46 Carbon Dioxide 10 mmol/L (21-32) L 10/26/22 17:46 Anion Gap 27 (3-11) H 10/26/22 17:46 BUN 8 mg/dl (6-23) 10/26/22 17:46 Creatinine 0.91 mg/dl (0.6-1.4) 10/26/22 17:46 Est Cr Clr Drug Dosing 109.2 ml/min 10/26/22 17:46 Est GFR ( Amer) 117.5 ml/min 10/26/22 17:46 Est GFR (Non-Af Amer) 101.4 ml/min 10/26/22 17:46 BUN/Creatinine Ratio 8.8 (10-20) L 10/26/22 17:46 Glucose 143 mg/dl (70-99(Fasting)) H 10/26/22 17:46 Calcium 8.7 mg/dl (8.6-10.3) 10/26/22 17:46 Total Bilirubin 2.0 mg/dl (0.2-1.0) H 10/26/22 17:46 AST 178 U/L (13-39) H 10/26/22 17:46 ALT 71 U/L (7-52) H 10/26/22 17:46 Alkaline Phosphatase 156 U/L (34-104) H 10/26/22 17:46 Total Protein 7.8 gm/dl (6.0-8.3) 10/26/22 17:46 Albumin 4.2 gm/dl (3.4-5.0) 10/26/22 17:46 Globulin 3.6 gm/dl (2.5-4.0) 10/26/22 17:46 Albumin/Globulin Ratio 1.2 (0.9-2) 10/26/22 17:46 TSH 1.793 uIu/ml (0.300-4.500) 10/26/22 17:46 Urine Color Yellow 10/26/22 18:52 Urine Appearance Clear (Clear) 10/26/22 18:52 Urine pH 6.5 (4.5-7.5) 10/26/22 18:52 Ur Specific [place] 1.013 (1.000-1.030) 10/26/22 18:52 Urine Protein 2+ (Negative) H 10/26/22 18:52 Urine Glucose (UA) Negative (Negative) 10/26/22 18:52 Urine Ketones 1+ (Negative) H 10/26/22 18:52 Urine Blood 3+ (Negative) H 10/26/22 18:52 Urine Nitrite Negative (Negative) 10/26/22 18:52 Urine Bilirubin Negative (Negative) 10/26/22 18:52 Urine Urobilinogen Negative (Negative) 10/26/22 18:52 Ur Leukocyte Esterase Negative (Negative) 10/26/22 18:52 Urine WBC (Auto) 1-5 /hpf (0-5) 10/26/22 18:52 Urine RBC (Auto) 10-30 /hpf (0-4) H 10/26/22 18:52 U Hyaline Cast (Auto) 1-5 /lpf (0-5) 10/26/22 18:52 U Epithel Cells (Auto) 10-20 /lpf (0-5) H 10/26/22 18:52 Urine Bacteria (Auto) Negative (Negative) 10/26/22 18:52 Salicylates < 3.0 mg/dl (3.0-30) L 10/26/22 17:46 Urine Opiates Screen Neg (Neg) 10/26/22 18:52 Ur Methadone, Qual Neg (Neg) 10/26/22 18:52 Acetaminophen < 3 ug/ml (10-30) L 10/26/22 17:46 Urine Barbiturates Neg (Neg) 10/26/22 18:52 Ur Phencyclidine (PCP) Neg (Neg) 10/26/22 18:52 U Amphetamin/Meth Scrn Neg (Neg) 10/26/22 18:52 MDMA (Ecstasy) Screen Neg (Neg) 10/26/22 18:52 U Benzodiazepines Scrn Neg (Neg) 10/26/22 18:52 Ur Cocaine Metabolite Neg (Neg) 10/26/22 18:52 U Marijuana (THC) Screen Neg (Neg) 10/26/22 18:52 Ethyl Alcohol mg/dL 27.4 mg/dl (<10.0) H 10/26/22 17:[address] 10/26/22 17:38 CT head/brain wo con CLINICAL HISTORY: 47 years-old Male with AMS. Acutely altered mental status TECHNIQUE: Multiple axial CT images of the head were obtained without contrast. A dose lowering technique was utilized adhering to the principles of ALARA. CT DOSE: 703.85 mGy.cm COMPARISON: 02/10/2022 FINDINGS: No acute intracranial hemorrhage, midline shift, intracranial mass, hydrocephalus, territorial ischemia or abnormal extra-axial collection. The calvarium is intact. The paranasal sinuses, mastoid air cells, and middle ear cavities are clear. IMPRESSION: No acute intracranial abnormality. ACT 112: Negative or not required by law. The above report was generated using voice recognition software. It may contain grammatical, syntax or spelling errors. Electronically signed by: Refugio Palacios M.D. 10/26/2022 6:37 PM Chest X-Ray 10/26/22 17:39 XR chest 1V portable HISTORY: 47 years-old Male fall acute chest trauma status post fall COMPARISON: 01/13/2021 TECHNIQUE: AP view of the chest FINDINGS: Cardiomediastinal and hilar silhouettes are within normal limits. No pneumothorax, pleural effusion, airspace consolidation or pulmonary edema. Bones are grossly intact. IMPRESSION: No acute process. ACT 112: Negative or not required by law. The above report was generated using voice recognition software. It may contain grammatical, syntax or spelling errors. Electronically signed by: Refugio Palacios M.D. 10/26/2022 6:01 PM Code Status & VTE Plan Code Status Full code VTE Prophylaxis Plan VTE Prophylaxis will be ordered: Yes PG Care Time/CCT Total # of Minutes Spent Total Time Spent with Patient: Total time spent is greater than 50% in coordination of care (as documented) at patient's floor/unit and/or counseling patient: Coding Level of Care Code 43274 INT INP/OBS CARE 3/75MIN Diagnoses Alcohol withdrawal seizure F10.239; R56.9 Alcoholic liver disease K70.9 Essential hypertension I10 Alcoholism F10.20 Seizure R56.9 Elevated LFTs R79.89
[2022-10-26 22:02] LABS: INR 1.1 (0.9-1.1); Partial Thromboplastin Time 27.3 Seconds (21.0-31.0); Prothrombin Time 12.4 Seconds (9.0-12.0)
[2022-10-27] MEDS ORDERED: Ativan IV Alcohol Withdrawal--Active Protocol IV PRN (00:20)
[2022-10-27] MEDS ORDERED: ONDANSETRON INJ 2 MG/ML 2 ML VIAL IV PRN (00:20)
[2022-10-27] MEDS ORDERED: LORazepam 2 MG/1 ML VIAL IV PRN (00:20)
[2022-10-27] MEDS ORDERED: GABAPENTIN 800MG ALCOHOL WITHDRAWAL LOAD PO STA (00:20)
[2022-10-27] MEDS ORDERED: GABAPENTIN 400 MG CAP PO ONE (00:30)
[2022-10-27] MEDS: NSS + 20MEQ KCL 20 MEQ/1,000 ML BAG IV SCH ×3 (00:44→20:02)
[2022-10-27] MEDS: LORazepam 2 MG/1 ML VIAL IV PRN ×7 (00:45→23:50)
[2022-10-27] MEDS: lamoTRIgine 100 MG TAB PO SCH ×3 (00:46→20:00)
[2022-10-27] MEDS: cloNIDine HCL 0.1 MG TAB PO SCH ×3 (00:46→20:00)
[2022-10-27] MEDS: GABAPENTIN 400 MG CAP PO SCH ×3 (06:06→20:00)
[2022-10-27] MEDS: THIAMINE HCL 500 MG in SODIUM CHLORIDE 0.9% 50 ML IV SCH ×2 (08:58→16:00)
[2022-10-27] MEDS: FOLIC ACID 1 MG TAB PO SCH (08:59)
[2022-10-27] MEDS: LORATADINE 10 MG TAB PO SCH (08:59)
[2022-10-27] MEDS ORDERED: THIAMINE HCL 100 MG TAB PO SCH (09:00)
[2022-10-27] MEDS: FLUOCINONIDE 0.05% CR 15 GM TUBE EXT SCH ×2 (09:00→19:59)
[2022-10-27] MEDS: lisinopril 20 MG TAB PO SCH (09:00)
[2022-10-27 09:06] LABS: Albumin Globulin Ratio 1.2 (0.9-2); Albumin Level 4.3 gm/dl (3.4-5.0); BUN Creatinine Ratio 12.8 (10-20); Bilirubin,Total 2.8 mg/dl (0.2-1.0); Calcium 8.3 mg/dl (8.6-10.3); Creatinine Clr Calc Pharmacy 115.5 ml/min; Est GFR (African American) 121.4 ml/min; Est GFR (Non-African American) 104.7 ml/min; Globulin 3.5 gm/dl (2.5-4.0); Magnesium 1.9 mg/dl (1.7-2.4); Potassium 3.8 mmol/L (3.5-5.1); Total Protein 7.8 gm/dl (6.0-8.3)
--- NOTE | 2022-10-27 20:40 | Hospitalist Progress Note ---
Date of Service October 27, 2022 Assessment & Plan (1) Alcohol withdrawal seizure: Plan: tongue swelling/bite lorna c/w such. he takes lamictal 150mg BID chronically. he has been placed on gabapentin taper for his etoh withdrawal mag/K wnl. cont seizure precautions. (2) Alcohol withdrawal: Plan: patient remains in etoh withdrawal. per the medical record he drinks a combination of liquor/beer/wine but he denied drinking all 3. he would not tell me how much he consumes day to day. no hallucinations at this time; remains oriented x 3. cont gabapentin taper. cont AWSS with symptom-triggered ativan. change thiamine to 500mg IV q8h x 48 hours then reduce dose. cont IVF. cont folic acid. seizure precautions. at high risk of DTs - if he develops such would potentially need precedex in the ICU. (3) Alcoholic liver disease: Plan: last u/a showed signs of early cirrhosis. his LFTs are always elevated. I do not feel he is committed to stopping etoh - offered assistance to help him maintain sobriety following his withdrawal (either inpatient v outpatient) but he was not interested in any option. Previous Hep A/B/C testing in 2021 were all negative. Ammonia level 35 this am. INR stable. (4) Essential hypertension: Plan: cont clonidine cont lisinopril may need adjustments may need BB therapy (5) Alcoholism: Plan: see above (6) Seizure: Plan: 2nd etoh withdrawal seizure see #1 (7) Elevated LFTs: Plan: due to early cirrhosis and ongoing alcoholic hepatitis (8) Hepatic encephalopathy: Plan: not seen at this time (9) Cirrhosis: Plan: 2nd etoh 11/2021 u/s showed early cirrhotic changes Admission and Anticipated Discharge Date Admission Date: October 26, 2022 Subjective patient sleeping upon arrival awakens when his name is called severe tremors noted patient able to tell me he's at [facility], it is 2022, and that we are in October we talked about his alcoholism discussed inpatient v outpatient Rx options he said "my dad suggested AA - that's not gonna work for me" I asked him if he wanted help to quit and he just looked at me - never really answered the question explained to him that his last u/s of the liver showed early cirrhosis and that cirrhosis is irreversible liver damage he mentioned getting a new job at [employer] in [place] and that going to inpatient rehab would get in the way of his new job he starts in November he reports the last time he had withdrawal it took 3 days he states that the lamictal he takes is for seizures NOT mental health disorders tele - NSR/ST Review of Systems Review of Systems: cv - no chest pain pulm - no dyspnea GI - no abd pain or N/V psych - denies visual or auditory hallucinations Physical Exam Physical Exam: gen - tremors of arms; voice jittery; a/o x 3 but poor insight; otherwise NAD skin - sweaty mouth - MMM; tongue with bite lorna distal L with ecchymoses/swelling heart - tachy, s1 s2 lungs - CTA b/l abd - soft NT ND BS+ ext - no edema, pulses 2+ b/l neuro - severe tremors Results & Data Results & Data Vital Signs (Past 12 Hours) Vital Signs Temp Pulse Resp BP Pulse Ox O2 Del Method 10/27/22 19:17 36.8 C 87 20 136/88 96 Room Air 10/27/22 15:37 36.8 C 77 16 127/81 97 Room Air 10/27/22 11:02 36.8 C 82 18 148/88 H 98 Room Air Laboratory Results Laboratory Results - last 24 hr 10/26/22 10/27/22 10/27/22 18:03 08:23 08:23 PT 12.4 H INR 1.1 APTT 27.3 PTT Ratio 1.0 Sodium 138 Potassium 3.8 Chloride 102 Carbon Dioxide 24 Anion Gap 12 H BUN 11 Creatinine 0.86 Est Cr Clr Drug Dosing 115.5 Est GFR ( Amer) 121.4 Est GFR (Non-Af Amer) 104.7 BUN/Creatinine Ratio 12.8 Glucose 112 H Calcium 8.3 L Magnesium 1.9 Total Bilirubin 2.8 H AST 148 H ALT 64 H Alkaline Phosphatase 126 H Ammonia 35.0 Total Protein 7.8 Albumin 4.3 Globulin 3.5 Albumin/Globulin Ratio 1.2 PG Care Time/CCT Total # of Minutes Spent Total Time Spent with Patient: Total time spent is greater than 50% in coordination of care (as documented) at patient's floor/unit and/or counseling patient: Coding Level of Care Code 23571 SUB INP/OBS CARE 2/35MIN Diagnoses Alcohol withdrawal seizure F10.239; R56.9 Alcohol withdrawal F10.939 Complication of substance-induced condition: with unspecified complication Alcoholic liver disease K70.9 Essential hypertension I10 Alcoholism F10.20 Seizure R56.9 Elevated LFTs R79.89 Hepatic encephalopathy K72.90 Cirrhosis K74.60 (2) Alcohol withdrawal Complication of substance-induced condition: with unspecified complication Qualified Code(s): F10.939 - Alcohol use, unspecified with withdrawal, unspecified
[2022-10-28] MEDS: THIAMINE HCL 500 MG in SODIUM CHLORIDE 0.9% 50 ML IV SCH ×4 (00:07→23:34)
[2022-10-28] MEDS: LORazepam 2 MG/1 ML VIAL IV PRN ×5 (02:27→22:58)
[2022-10-28] MEDS ORDERED: LORazepam 2 MG/1 ML VIAL IV STA ×3 (04:46→22:55)
--- NOTE | 2022-10-28 04:48 | Communication Note ---
Date of Service: October 28, 2022 Was notified this morning by nursing regarding patient's persistent agitation despite multiple doses of IV Ativan, per KELL protocol. Patient had received 8 mg of IV Ativan over 3 hours. Last dose was 2 mg IV Ativan, and agitation score appeared to be worsening. Examined patient at bedsidehe appeared somewhat drowsy but very much agitated. Ordered 4 mg IV Ativan, then another 4 mg of IV Ativan, despite which patient remained agitated. Ordered Ativan drip for patient but was notified by nursing that Ativan drip not available to be given in the PCU. Discussed options with pharmacyopted to administer IM phenobarbital. Ordered IM phenobarbital per AWSS protocol. Resident Activity Tracking Resident Involvement: Resident Care Provided and Director Of Patient Financial Services Coverage Note Care Provided: Adult Hospital Medicine
[2022-10-28] MEDS: GABAPENTIN 400 MG CAP PO SCH (05:08)
[2022-10-28] MEDS ORDERED: STAT IV Infusion **Titration per Protocol STA ×2 (06:11→08:38)
[2022-10-28] MEDS ORDERED: PHENobarbital sodium 65 MG/ML VIAL IM PRN (06:15)
[2022-10-28] MEDS ORDERED: PHENobarbital sodium 130 MG/ML VIAL IM STA (06:15)
[2022-10-28] MEDS ORDERED: LORazepam 50 MG in D5W 250ML IN *POLYOLEFIN BAG* 25 ML IV SCH (06:15)
[2022-10-28] MEDS: NSS + 20MEQ KCL 20 MEQ/1,000 ML BAG IV SCH ×2 (06:36→22:46)
--- NOTE | 2022-10-28 07:58 | Hospitalist Progress Note ---
Date of Service October 28, 2022 Assessment & Plan (1) Delirium tremens: Plan: severe etoh withdrawal which has now progressed to DTs with severe agitation. has required copious amounts of IV ativan along with IM phenobarbital & gabapentin. despite such remains severely agitated, delirious, and at risk of injury due to trying to climb out of bed, not following commands, etc. due to the above order for soft limb restraints placed to b/l wrists. ativan 3mg IV x 1 now. orders placed for ICU transfer, Dr Fraser's assistance appreciated. likely to need IV precedex infusion or similar. will contact pt's family and give them an update. (2) Alcohol withdrawal seizure: Plan: tongue swelling/bite lorna c/w such. he takes lamictal 150mg BID chronically. he has been placed on gabapentin taper for his etoh withdrawal. mag/K wnl. cont seizure precautions. (3) Alcohol withdrawal: Plan: see #1 above. now in DTs. per the medical record he drinks a combination of liquor/beer/wine but he denied drinking all 3 to me yesterday. he would not tell me how much he consumes day to day. defer whether to cont gabapentin taper to ICU attending. cont thiamine 500mg IV q8h x 48 hours then reduce dose to 200mg BID or similar. cont IVF. cont folic acid. seizure precautions. transferring to ICU for additional sedation. (4) Alcoholic liver disease: Plan: last u/s of liver showed signs of early cirrhosis. his LFTs are always elevated. I do not feel he is committed to stopping etoh - offered assistance to help him maintain sobriety following his withdrawal (either inpatient v outpatient) but he was not interested in any option. Previous Hep A/B/C testing in 2021 were all negative. Ammonia level 35 on 10/27. INR stable. (5) Essential hypertension: Plan: cont clonidine cont lisinopril may need adjustments may need BB therapy (6) Alcoholism: Plan: see above (7) Seizure: Plan: 2nd etoh withdrawal seizure just prior to admission see above (8) Elevated LFTs: Plan: due to early cirrhosis and ongoing alcoholic hepatitis repeat LFTs this am pending (9) Hepatic encephalopathy: Plan: h/o such ammonia 35 on 10/27 repeat ammonia level this am pending (10) Cirrhosis: Plan: 2nd etoh 11/2021 u/s showed early cirrhotic changes counseled him on this 10/27/22 when he was awake and oriented x 3 will aids counselor again following his withdrawal Plan the blood on his gown and sheets does not appear to be hematemesis or coffee- ground emesis looks more like blood from his L knee abrasion with that said will order PROTONIX IV in the event he has esophagitis, gastritis, etc updated pt's father at 0830 this am re: events of night, Tx to ICU, etc he plans to visit later in the day appreciate Dr Fraser accepting Mr Ahuja to ICU Admission and Anticipated Discharge Date Admission Date: October 26, 2022 Subjective patient had severe agitation and delirium overnight required copious amounts of IV ativan and despite such has remain agitated, trying to get out of bed, etc I was informed by nursing that the pt's AWSS was 20 and that he had received IM phenobarbital at 0630 Due to not following commands, concern for his safety, severe DTs, risk of pulling out IVs, etc advised use of soft limb restraints I immediately placed order for the restraints 1:1 sitter placed in room I then came to bedside Restraints were now in place over both wrists he was still agitated, moving his legs all over the bed and trying to pull at the restraints I asked him where he was and he said "at [facility], in [place]" I reoriented him stating he was at the hospital going thru severe etoh withdrawal and he said "oh no not again" he denied pain in his chest or abdomen there was dried blood on his gown and the bedsheets from an abrasion on his left knee I called & spoke with Dr Fraser from ICU and asked for ICU transfer for IV sedation (precedex, etc) Dr Fraser accepted as I was leaving I asked for additional ativan 3mg IV x 1 until he could get to ICU Review of Systems Review of Systems: Unobtainable due to cognitive status Physical Exam Physical Exam: gen - severely agitated, confused/delirious, moving around on the bed despite being in b/l soft limb wrist restraints skin - sweaty; bruise on R knee, abrasion on L knee eyes - PERRL, 4mm b/l; nystagmus noted horizontally mouth - MMM; tongue with bite lorna distal L with ecchymoses/swelling heart - tachy, s1 s2, no murmur lungs - CTA b/l, mild tachypnea but no distress abd - soft NT ND BS+; no HSM ext - no edema, pulses 2+ b/l neuro - severe tremors psych - oriented to person only Results & Data Results & Data Vital Signs (Past 12 Hours) Vital Signs Temp Pulse Pulse Resp BP BP Pulse Ox 10/28/22 07:11 36.7 C 153 H 26 H 158/96 H 94 10/28/22 06:32 108 H 32 H 156/99 H 10/28/22 05:38 109 H 30 H 167/104 H 10/28/22 04:22 108 H 24 176/113 H 10/28/22 03:22 104 H 150/106 H 10/28/22 02:27 36.8 C 104 H 22 157/103 H 95 10/27/22 23:00 36.8 C 94 H 22 138/86 98 10/27/22 22:46 84 O2 Del Method 10/28/22 07:11 Room Air 10/28/22 06:32 10/28/22 05:38 10/28/22 04:22 10/28/22 03:22 10/28/22 02:27 Room Air 10/27/22 23:00 Room Air 10/27/22 22:46 Laboratory Results Laboratory Results - last 24 hr 10/27/22 10/27/22 08:23 08:23 Sodium 138 Potassium 3.8 Chloride 102 Carbon Dioxide 24 Anion Gap 12 H BUN 11 Creatinine 0.86 Est Cr Clr Drug Dosing 115.5 Est GFR ( Amer) 121.4 Est GFR (Non-Af Amer) 104.7 BUN/Creatinine Ratio 12.8 Glucose 112 H Calcium 8.3 L Magnesium 1.9 Total Bilirubin 2.8 H AST 148 H ALT 64 H Alkaline Phosphatase 126 H Ammonia 35.0 Total Protein 7.8 Albumin 4.3 Globulin 3.5 Albumin/Globulin Ratio 1.2 10/28 labs pending PG Care Time/CCT Total # of Minutes Spent Total Time Spent with Patient: Total time spent is greater than 50% in coordination of care (as documented) at patient's floor/unit and/or counseling patient: Coding Level of Care Code 41633 SUB INP/OBS CARE 3/50MIN Diagnoses Delirium tremens F10.231 Alcohol withdrawal seizure F10.239; R56.9 Alcohol withdrawal F10.939 Complication of substance-induced condition: with unspecified complication Alcoholic liver disease K70.9 Essential hypertension I10 Alcoholism F10.20 Seizure R56.9 Elevated LFTs R79.89 Hepatic encephalopathy K72.90 Cirrhosis K74.60 (3) Alcohol withdrawal Complication of substance-induced condition: with unspecified complication Qualified Code(s): F10.939 - Alcohol use, unspecified with withdrawal, unspecified
[2022-10-28] MEDS ORDERED: LORazepam 2 MG/1 ML VIAL ONE ×2 (08:11→09:36)
[2022-10-28] MEDS ORDERED: Ativan IV Alcohol Withdrawal--Active Protocol IV PRN (08:41)
[2022-10-28] MEDS ORDERED: LORazepam 2 MG/1 ML VIAL IV PRN ×3 (08:41→09:53)
[2022-10-28] MEDS: dexMEDEtomidine 200 MCG/50 ML BAG IV SCH ×5 (08:48→19:37)
--- NOTE | 2022-10-28 09:05 | Critical Care Consultation ---
Date of Consultation October 28, 2022 Assessment & Plan (1) Delirium tremens: (2) Seizure: (3) Elevated LFTs: (4) Alcoholic liver disease: (5) Thrombocytopenia: (6) Essential hypertension: Plan Reason Critically Ill: 47-year-old male presented to the hospital because of alcohol withdrawal, went into DTs. Transferred to the ICU for further management Neuro - [facility] ICU: Positive --Delirium tremens Continue with benzodiazepines to keep RASS -1 Precedex drip to be started Intubated there is any worsening Continue with thiamine and folic acid --History of seizures On lamotrigine Did have a seizure prior to this hospitalization Ativan as needed Seizure precautions Cardiac - -- Tachycardia Likely from underlying DTs --Prolonged QT Avoid QT prolonging medications Keep potassium greater than 4, magnesium greater than 2, phosphorus greater than 3 Respiratory - -- COPD > 32-zpvy-hvag smoking history Currently smoking half a pack a day Not in any exacerbation right now GI - -- Transaminitis Likely alcohol induced Discriminant factor 4.6, does not qualify for steroids Continue to trend RENAL/LYTES - -- No acute issues Replace electrolytes as per protocol ENDO - -- ICU hypoglycemia protocol TSH within normal limit HEME - -- Microcytic anemia Likely from alcohol use Continue to monitor --Thrombocytopenia Likely from bone marrow suppression from alcohol use Continue to monitor ID - No acute issues --Prophylaxis VTE: IPC GI: Pantoprazole Lines: Peripheral Diet: N.p.o. Plan: In/out: +5.6 L since coming to the hospital, urine output 1675 Continue with Ativan [id number] and start Precedex to keep the patient RASS -1 Aspiration precautions If there is any worsening then will consider intubation We will discontinue gabapentin I have personally spent 58 minutes of critical care time in the direct management of this patient. This is a life/limb threatening event. This includes time spent evaluating patient, direct bedside care, chart review, placing orders, interpretation of diagnostic studies, discussion with consultants, patient, and family members, as well as other required patient management activities. This time is exclusive of all separately billable procedures, and teaching time and separate from and in addition to any other critical care service time. History of Present Illness Attending Physician: Bill Jernigan MD History of Present Illness 47-year-old male presents to the hospital because of alcohol withdrawal Past medical history: Seizures, thrombocytopenia,Hypertension Patient was transferred to the ICU as he was getting more restless and agitated At the time of examination in the ICU patient's heart rate was in the 120's, blood pressure was in the 160s systolic He was awake alert and oriented to self place as well as time. He was having active auditory hallucinations. Denied any chest pain, no headache, no dizziness, no nausea, no vomiting, no shortness of breath. He had gotten approximately 8 mg of Ativan prior to coming here along with phenobarbital Has been afebrile. Social history: [id number]-[id number] smoking history currently smoking half a pack a day, works at [employer] Allergies Allergy/AdvReac Type Severity Reaction Status Date / Time No Known Allergies Allergy Mild Verified 05/24/22 13:20 Home Medications Medication Instructions Recorded Confirmed Type lamotrigine 150 mg tablet 150 mg PO BID 01/13/21 10/26/22 History (Lamictal) clonidine HCl 0.1 mg tablet 0.2 mg PO BID 11/11/21 10/26/22 History folic acid 1 mg tablet 1 mg PO DAILY 11/11/21 10/26/22 History lisinopril 20 mg tablet 20 mg PO DAILY 11/11/21 10/26/22 History loratadine 10 mg tablet (Claritin) 10 mg PO DAILY #14 tabs 05/01/22 10/26/22 Rx fluocinonide 0.05 % topical cream 1 applic topical BID #60 grams 06/20/22 10/26/22 Rx Patient History Medical History (Updated 10/28/22 @ 08:26 by Bill Jernigan MD) Alcoholism Delirium tremens Essential hypertension Metabolic encephalopathy Seizures (~11/16/21) Surgical History No pertinent past surgical history Family History Father Skin cancer of face Denies family history of Alcoholism Seizure disorder Social History Smoking Status: Current every day smoker Tobacco Type: Cigarettes Cigarettes Per Day: 1/2 pack a day; Second Hand Exposure: No; Do You Dip or Chew Tobacco: No; Hx Alcohol Use: Yes Alcohol type: hard liquor Alcohol type Comment: DAILY consumption, mixture of bottle of wine, bottle of liquor, and/or beer Hx Substance Use: No Preferred Language: Niuean Communication Ability: Impaired 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 [place] How many Children do You have: 0 Feels Safe at Home: Yes Assistive Devices: None Review of Systems Review of Systems: All systems reviewed & are unremarkable except as noted in HPI & below Physical Exam Physical Exam: Constitutional: No acute distress HEENT: EOMI, PERRLA, bruising of the left anterior lateral side of the tongue Respiratory system: Decreased air entry bilaterally, no wheeze, no rhonchi, mild crackles bilateral lower lobes CVS: S1-S2 positive, no murmurs or gallops, tachycardia Abdomen: Soft, nontender, nondistended, positive bowel sounds x4 Extremities: +2 pulses bilaterally radialis/ dorsalis pedis, no cyanosis, no edema Neuro: Awake alert oriented to self, place and time Psych: Restless mood and affect G/U: No Renee Skin: no rashes, warm and dry Lymphatic: no cervical or axillary lymphadenopathy Results & Data Results & Data Vital Signs (Past 12 Hours) Vital Signs Temp Pulse Pulse Resp BP BP Pulse Ox 10/28/22 07:11 36.7 C 153 H 26 H 158/96 H 94 10/28/22 06:32 108 H 32 H 156/99 H 10/28/22 05:38 109 H 30 H 167/104 H 10/28/22 04:22 108 H 24 176/113 H 10/28/22 03:22 104 H 150/106 H 10/28/22 02:27 36.8 C 104 H 22 157/103 H 95 10/27/22 23:00 36.8 C 94 H 22 138/86 98 10/27/22 22:46 84 O2 Del Method 10/28/22 07:11 Room Air 10/28/22 06:32 10/28/22 05:38 10/28/22 04:22 10/28/22 03:22 10/28/22 02:27 Room Air 10/27/22 23:00 Room Air 10/27/22 22:46 [place] [address] CRITICAL CARE 1ST 30-74M Patient Type New Diagnoses Delirium tremens F10.231 Seizure R56.9 Elevated LFTs R79.89 Alcoholic liver disease K70.9 Thrombocytopenia D69.6 Essential hypertension I10 Time Spent (min) 58
[2022-10-28 09:10] LABS: Hematocrit (blood only) 35.3 % (42.0-52.0); Hemoglobin 12.5 g/dl (14.0-18.0); Mean Corpuscular Hemoglobin 37.3 pg (25.0-34.0); Mean Corpuscular Hgb Conc 35.4 g/dL (32.0-36.0); Mean Corpuscular Volume 105.4 fL (80.0-100.0); Mean Platelet Volume 10.9 fL (9.4-12.4); Platelet Count 46 K/uL (130-400); RDW Coefficient of Variation 11.9 % (11.5-14.5); RDW Standard Deviation 46.7 fL (36.4-46.3); Red Blood Count 3.35 M/uL (4.70-6.10); White Blood Count 5.53 K/ul (4.8-10.8)
--- NOTE | 2022-10-28 09:19 | Electrocardiogram Report ---
Test Reason : Blood Pressure : / mmHG Vent. Rate : 091 BPM Atrial Rate : 091 BPM P-R Int : 148 ms QRS Dur : 104 ms QT Int : 400 ms P-R-T Axes : 071 028 046 degrees QTc Int : 492 ms Normal sinus rhythm Prolonged QT Tall R waves in precordial leads Abnormal ECG When compared with ECG of 29-APR-2022 07:48, No significant change was found Confirmed by Nathaniel Blas ([id number]) on 10/28/2022 9:18:50 AM Referred By: REFERRED SELF Confirmed By:Nathaniel Blas
[2022-10-28 09:28] LABS: Alanine Aminotransferase 72 U/L (7-52); Albumin Globulin Ratio 1.2 (0.9-2); Albumin Level 3.8 gm/dl (3.4-5.0); Alkaline Phosphatase 148 U/L (34-104); Anion Gap 8 (3-11); Aspartate Aminotransferase 200 U/L (13-39); BUN Creatinine Ratio 11.1 (10-20); Blood Urea Nitrogen 8 mg/dl (6-23); Calcium 8.5 mg/dl (8.6-10.3); Carbon Dioxide 21 mmol/L (21-32); Chloride 106 mmol/L (98-107); Est GFR (African American) 130.6 ml/min; Est GFR (Non-African American) 112.7 ml/min; Globulin 3.3 gm/dl (2.5-4.0); Glucose 100 mg/dl (70-99(Fasting)); Potassium 3.9 mmol/L (3.5-5.1); Sodium 135 mmol/L (136-145); Total Protein 7.1 gm/dl (6.0-8.3)
[2022-10-28] MEDS ORDERED: PHENobarbital sodium 65 MG/ML VIAL IM SCH (09:30)
[2022-10-28 10:23] LABS: Magnesium 1.7 mg/dl (1.7-2.4)
[2022-10-28 10:41] LABS: Phosphorus < 1.0 mg/dl (2.5-4.9)
[2022-10-28] MEDS: PANTOprazole 40 MG in SYRINGE 0 ML IV SCH (11:32)
[2022-10-28] MEDS: ICU Protocol for HYPERglycemia SCH ×3 (11:34→20:23)
[2022-10-28] MEDS ORDERED: SODIUM PHOSPHATE 3 MMOL/1 ML INFUSION IV STA (11:57)
[2022-10-28] MEDS ORDERED: LORazepam 2 MG/1 ML VIAL IV SCH (12:00)
[2022-10-28] MEDS ORDERED: SODIUM PHOSPHATE 40 MMOL in DEXTROSE 5% 1,000 ML IV ONE (12:15)
[2022-10-28] MEDS: LORATADINE 10 MG TAB PO SCH (13:08)
[2022-10-28] MEDS: cloNIDine HCL 0.1 MG TAB PO SCH ×2 (13:08→20:22)
[2022-10-28] MEDS: lisinopril 20 MG TAB PO SCH (13:08)
[2022-10-28] MEDS: lamoTRIgine 100 MG TAB PO SCH ×2 (13:08→20:23)
[2022-10-28] MEDS: FLUOCINONIDE 0.05% CR 15 GM TUBE EXT SCH ×2 (13:08→20:22)
[2022-10-28] MEDS: FOLIC ACID 1 MG TAB PO SCH (13:08)
[2022-10-28] MEDS: ICU ELECTROLYTE REPLACEMENT PROTOCOL SCH (17:58)
[2022-10-28] MEDS: LORazepam 2 MG/1 ML VIAL IV SCH (21:46)
[2022-10-28] MEDS: dexMEDEtomidine 400 MCG/100 ML BAG IV SCH (22:47)
[2022-10-29] MEDS: LORazepam 2 MG/1 ML VIAL IV PRN (03:48)
[2022-10-29] MEDS: dexMEDEtomidine 400 MCG/100 ML BAG IV SCH ×4 (04:20→17:30)
[2022-10-29] MEDS: NSS + 20MEQ KCL 20 MEQ/1,000 ML BAG IV SCH (04:22)
[2022-10-29 04:39] LABS: Basophils # (auto) 0.02 K/uL (0-0.2); Basophils % (auto) 0.4 %; Eosinophils # (auto) 0.12 K/uL (0-0.50); Eosinophils % (auto) 2.4 %; Hematocrit (blood only) 37.6 % (42.0-52.0); Hemoglobin 13.4 g/dl (14.0-18.0); Immature Granulocytes # (auto) 0.02 K/uL (0.01-0.20); Immature Granulocytes % (auto) 0.4 %; Lymphocytes # (auto) 0.89 K/uL (1.2-3.4); Lymphocytes % (auto) 17.9 %; Mean Corpuscular Hemoglobin 37.3 pg (25.0-34.0); Mean Corpuscular Hgb Conc 35.6 g/dL (32.0-36.0); Mean Corpuscular Volume 104.7 fL (80.0-100.0); Mean Platelet Volume 10.7 fL (9.4-12.4); Monocytes # (auto) 0.38 K/uL (0.11-0.59); Monocytes % (auto) 7.6 %; Neutrophils # (auto) 3.55 K/uL (1.40-6.50); Neutrophils % (auto) 71.3 %; Platelet Count 55 K/uL (130-400); RDW Coefficient of Variation 11.5 % (11.5-14.5); RDW Standard Deviation 44.6 fL (36.4-46.3); Red Blood Count 3.59 M/uL (4.70-6.10); White Blood Count 4.98 K/ul (4.8-10.8)
[2022-10-29 04:54] LABS: BUN Creatinine Ratio 10.6 (10-20); Calcium 8.2 mg/dl (8.6-10.3); Creatinine Clr Calc Pharmacy 150.5 ml/min; Est GFR (African American) 135.3 ml/min; Est GFR (Non-African American) 116.8 ml/min; Magnesium 1.8 mg/dl (1.7-2.4); Phosphorus 2.2 mg/dl (2.5-4.9); Potassium 3.8 mmol/L (3.5-5.1)
[2022-10-29] MEDS: LORazepam 2 MG/1 ML VIAL IV SCH ×4 (05:14→23:20)
[2022-10-29] MEDS ORDERED: SODIUM PHOSPHATE 3 MMOL/1 ML INFUSION IV STA (05:22)
[2022-10-29] MEDS: ICU ELECTROLYTE REPLACEMENT PROTOCOL SCH ×2 (05:25→18:51)
[2022-10-29] MEDS: MAGNESIUM SULFATE / D5W 1 GM/100 ML BAG IV SCH ×2 (05:53→07:28)
[2022-10-29] MEDS ORDERED: SODIUM PHOSPHATE 15 MMOL in SODIUM CHLORIDE 0.9% 250 ML IV ONE (06:00)
[2022-10-29] MEDS ORDERED: GABAPENTIN 400 MG CAP PO SCH (06:00)
[2022-10-29] MEDS: POTASSIUM CHLORIDE / WTR 10 MEQ/100 ML PLCT IV SCH ×4 (07:30→11:38)
[2022-10-29] MEDS: ICU Protocol for HYPERglycemia SCH ×4 (07:31→19:51)
[2022-10-29] MEDS: THIAMINE HCL 500 MG in SODIUM CHLORIDE 0.9% 50 ML IV SCH ×3 (07:34→23:23)
--- NOTE | 2022-10-29 07:39 | Critical Care Progress Note ---
Date of Service October 29, 2022 Assessment & Plan (1) Delirium tremens: (2) Seizure: (3) Elevated LFTs: (4) Alcoholic liver disease: (5) Thrombocytopenia: (6) Essential hypertension: Plan Reason Critically Ill: 47-year-old male presented to the hospital because of alcohol withdrawal, went into DTs. Transferred to the ICU for further management Neuro - [facility] ICU: Positive --Delirium tremens Continue with benzodiazepines to keep RASS -1 Precedex drip to be started Intubated there is any worsening Continue with thiamine and folic acid --History of seizures On lamotrigine Did have a seizure prior to this hospitalization Ativan as needed Seizure precautions Cardiac - -- Tachycardia Likely from underlying DTs --Prolonged QT Avoid QT prolonging medications Keep potassium greater than 4, magnesium greater than 2, phosphorus greater than 3 Respiratory - -- COPD > [id number] smoking history Currently smoking half a pack a day Not in any exacerbation right now GI - -- Transaminitis Likely alcohol induced Discriminant factor 4.6, does not qualify for steroids Continue to trend RENAL/LYTES - -- No acute issues Replace electrolytes as per protocol ENDO - -- ICU hypoglycemia protocol TSH within normal limit HEME - -- Microcytic anemia Likely from alcohol use Continue to monitor --Thrombocytopenia Likely from bone marrow suppression from alcohol use Continue to monitor ID - No acute issues --Prophylaxis VTE: IPC GI: Pantoprazole Lines: Peripheral Diet: N.p.o. Plan: In/out: +912, urine output 2500 mL Potassium, magnesium as well as phosphorus being replaced Try to titrate down Precedex as low as possible Increase Ativan to 3 mg every 6 hours [id number]. I will add gabapentin 600 mg every 12 hours. Try to see if the patient is able to tolerate p.o. medications and diet. I have personally spent 37 minutes of critical care time in the direct management of this patient. This is a life/limb threatening event. This includes time spent evaluating patient, direct bedside care, chart review, placing orders, interpretation of diagnostic studies, discussion with consultants, patient, and family members, as well as other required patient management activities. This time is exclusive of all separately billable procedures, and teaching time and separate from and in addition to any other critical care service time. Admission and Anticipated Discharge Date Admission Date: October 26, 2022 Subjective Patient seen and examined at bedside. No acute distress Overnight patient got 4 mg of Ativan on top of 30 mg every 8 He was on Precedex 0.8. He was RASS -1. Answering simple questions Denied any auditory, visual or tactile hallucination Denies any headache, no chest pain, no shortness of breath Review of Systems Review of Systems: All systems reviewed & are unremarkable except as noted in Subjective Physical Exam Physical Exam: Constitutional: No acute distress HEENT: EOMI, PERRLA, bruising of the left anterior lateral side of the tongue Respiratory system: Decreased air entry bilaterally, no wheeze, no rhonchi, mild crackles bilateral lower lobes CVS: S1-S2 positive, no murmurs or gallops Abdomen: Soft, nontender, nondistended, positive bowel sounds x4 Extremities: +2 pulses bilaterally radialis/ dorsalis pedis, no cyanosis, no edema Neuro: Awake alert oriented to self, place and time Psych: Calm mood and affect G/U: No Renee Skin: no rashes, warm and dry Lymphatic: no cervical or axillary lymphadenopathy Results & Data Results & Data Vital Signs (Past 12 Hours) Vital Signs Temp Pulse Resp BP Pulse Ox 10/29/22 05:50 61 11 L 96 10/29/22 05:40 65 28 H 95 10/29/22 05:30 82 0 L 98 10/29/22 05:20 62 22 96 10/29/22 05:10 62 12 96 10/29/22 05:00 61 12 96 10/29/22 05:00 160/97 H 10/29/22 04:50 68 20 95 10/29/22 04:40 69 0 L 96 10/29/22 04:30 66 29 H 96 10/29/22 04:20 73 31 H 96 10/29/22 04:10 73 31 H 93 10/29/22 04:01 137/108 H 10/29/22 04:01 77 26 H 95 10/29/22 04:00 64 32 H 95 10/29/22 03:50 69 29 H 96 10/29/22 03:40 78 21 95 10/29/22 03:30 61 20 96 10/29/22 03:20 63 24 96 10/29/22 03:10 63 12 97 10/29/22 03:00 64 24 95 10/29/22 03:00 147/106 H 10/29/22 02:50 62 22 97 10/29/22 02:41 64 25 H 96 10/29/22 02:30 68 11 L 97 10/29/22 02:20 66 24 95 10/29/22 02:10 66 24 94 10/29/22 02:00 63 25 H 95 10/29/22 02:00 166/116 H 10/29/22 01:50 64 24 96 10/29/22 01:40 65 24 95 10/29/22 01:30 65 24 95 10/29/22 01:20 68 32 H 94 10/29/22 01:10 118 H 35 H 96 10/29/22 01:00 63 23 96 10/29/22 01:00 157/97 H 10/29/22 00:50 62 19 97 10/29/22 00:40 65 23 95 10/29/22 00:30 64 23 96 10/29/22 00:20 66 25 H 98 10/29/22 00:10 66 22 97 10/29/22 00:00 77 19 96 10/29/22 00:00 153/114 H 10/28/22 23:50 67 23 96 10/28/22 23:40 63 23 96 10/28/22 23:30 64 23 95 10/28/22 23:20 63 23 95 10/28/22 23:10 59 L 22 95 10/28/22 23:00 69 30 H 97 10/28/22 23:00 160/110 H 10/28/22 22:50 95 10/28/22 22:40 69 21 97 10/29/22 03:06 36.6 C 10/28/22 22:30 63 23 97 10/28/22 22:20 62 23 96 10/28/22 22:13 68 21 96 10/28/22 22:13 167/104 H 10/28/22 22:10 61 24 95 10/28/22 22:01 72 97 10/28/22 22:01 198/126 H 10/28/22 22:00 73 95 10/28/22 21:50 75 12 96 10/28/22 21:40 63 14 97 10/28/22 21:30 62 19 97 10/28/22 21:20 62 26 H 97 10/28/22 21:10 61 21 96 10/28/22 21:00 59 L 20 97 10/28/22 21:00 148/109 H 10/28/22 20:50 60 20 97 10/28/22 20:40 59 L 22 95 10/28/22 20:30 62 16 96 10/28/22 20:20 60 14 96 10/28/22 20:10 59 L 22 95 10/28/22 20:00 56 L 13 94 10/28/22 20:00 153/101 H 10/28/22 20:00 153/101 H 10/28/22 19:50 58 L 14 97 10/28/22 19:40 64 26 H 97 10/28/22 22:34 36.6 C Laboratory Results 10/29/22 04:29 10/29/22 04:25 Coding Level of Care Code 74351 CRITICAL CARE 1ST 30-74M Diagnoses Delirium tremens F10.231 Seizure R56.9 Elevated LFTs R79.89 Alcoholic liver disease K70.9 Thrombocytopenia D69.6 Essential hypertension I10 Time Spent (min) 37
[2022-10-29] MEDS: PANTOprazole 40 MG in SYRINGE 0 ML IV SCH (11:07)
[2022-10-29] MEDS: lamoTRIgine 100 MG TAB PO SCH ×2 (11:08→20:07)
[2022-10-29] MEDS: cloNIDine HCL 0.1 MG TAB PO SCH ×2 (11:10→20:01)
[2022-10-29] MEDS: lisinopril 20 MG TAB PO SCH (11:11)
[2022-10-29] MEDS: LORATADINE 10 MG TAB PO SCH (11:12)
[2022-10-29] MEDS: FOLIC ACID 1 MG TAB PO SCH (11:12)
[2022-10-29] MEDS: GABAPENTIN 600 MG TAB PO SCH ×2 (11:58→20:05)
[2022-10-29] MEDS: FLUOCINONIDE 0.05% CR 15 GM TUBE EXT SCH ×3 (12:00→20:02)
--- NOTE | 2022-10-29 14:51 | Hospitalist Progress Note ---
Date of Service October 29, 2022 Assessment & Plan (1) Delirium tremens: Plan: Patient is now on Precedex drip and benzodiazepines. Plan is to intubate if needed Currently in the ICU. Critical care on board (2) Alcohol withdrawal seizure: Plan: tongue swelling/bite lorna c/w such. he takes lamictal 150mg BID chronically. mag/K replace to keep potassium greater than 4 and magnesium greater than 2. cont seizure precautions. (3) Alcohol withdrawal: Plan: see #1 above. now in DTs. per the medical record he drinks a combination of liquor/beer/wine seizure precautions. (4) Alcoholic liver disease: Plan: last u/s of liver showed signs of early cirrhosis. his LFTs are always elevated. I do not feel he is committed to stopping etoh - offered assistance to help him maintain sobriety following his withdrawal (either inpatient v outpatient) but he was not interested in any option. Previous Hep A/B/C testing in 2021 were all negative. Ammonia level 35 on 10/27. INR stable. (5) Essential hypertension: Plan: cont clonidine cont lisinopril may need adjustments may need BB therapy (6) Alcoholism: Plan: see above (7) Seizure: Plan: 2nd etoh withdrawal seizure just prior to admission see above (8) Elevated LFTs: Plan: due to early cirrhosis and ongoing alcoholic hepatitis (9) Hepatic encephalopathy: Plan: ammonia 35 on 10/27, 56 today 10/29 (10) Cirrhosis: Plan: 2nd etoh 11/2021 u/s showed early cirrhotic changes Plan the blood on his gown and sheets does not appear to be hematemesis or coffee- ground emesis looks more like blood from his L knee abrasion Continue PROTONIX IV in the event he has esophagitis, gastritis, etc updated pt's father at bedside Admission and Anticipated Discharge Date Admission Date: October 26, 2022 Subjective Patient remains in DTs. On Precedex drip. He is awake. Able to converse. Review of Systems Review of Systems: All systems reviewed & are unremarkable except as noted in Subjective Physical Exam Physical Exam: General: Drowsy, arousable. Able to converse when awake. Slightly confused. Heart: S1, S2/regular rate and rhythm, no murmur rubs or gallops Lungs: Clear to auscultation bilaterally. Normal effort Abdomen: Soft/nontender/nondistended. No hepatosplenomegaly Extremities: No clubbing/cyanosis. No edema Behavior: Appropriate, cooperative Results & Data Results & Data Vital Signs (Past 12 Hours) Vital Signs Temp Pulse Resp BP Pulse Ox O2 Del Method 10/29/22 12:00 67 26 H 10/29/22 12:00 159/112 H 10/29/22 11:00 71 29 H 95 10/29/22 11:00 152/106 H 10/29/22 10:00 59 L 23 96 Room Air 10/29/22 10:00 143/96 H 10/29/22 09:00 59 L 23 95 10/29/22 09:00 154/101 H 10/29/22 08:00 75 23 160/104 H 96 Room Air 10/29/22 07:00 62 20 136/95 95 Room Air 10/29/22 08:01 36.9 C 10/29/22 05:50 61 11 L 96 10/29/22 05:40 65 28 H 95 10/29/22 05:30 82 0 L 98 10/29/22 05:20 62 22 96 10/29/22 05:10 62 12 96 10/29/22 05:00 61 12 96 10/29/22 05:00 160/97 H 10/29/22 04:50 68 20 95 10/29/22 04:40 69 0 L 96 10/29/22 04:30 66 29 H 96 10/29/22 04:20 73 31 H 96 10/29/22 04:10 73 31 H 93 10/29/22 04:01 137/108 H 10/29/22 04:01 77 26 H 95 10/29/22 04:00 64 32 H 95 10/29/22 03:50 69 29 H 96 10/29/22 03:40 78 21 95 10/29/22 03:30 61 20 96 10/29/22 03:20 63 24 96 10/29/22 03:10 63 12 97 10/29/22 03:00 64 24 95 10/29/22 03:00 147/106 H 10/29/22 02:50 62 22 97 10/29/22 03:06 36.6 C Laboratory Results Abnormal lab results 10/28/22 10/29/22 10/29/22 Range/Units 16:31 04:25 04:29 RBC 3.59 L (4.70-6.10) M/uL Hgb 13.4 L (14.0-18.0) g/dl Hct 37.6 L (42.0-52.0) % MCV 104.7 H (80.0-100.0) fL MCH 37.3 H (25.0-34.0) pg Plt Count 55 L (130-400) K/uL Lymph # (Auto) 0.89 L (1.2-3.4) K/uL POC Glucose 125 H (70-99) mg/dl Calcium 8.2 L (8.6-10.3) mg/dl Phosphorus 2.2 L D (2.5-4.9) mg/dl PG Care Time/CCT Total # of Minutes Spent Total Time Spent with Patient: Total time spent is greater than 50% in coordination of care (as documented) at patient's floor/unit and/or counseling patient: Coding Level of Care Code 80934 SUB INP/OBS CARE 2/35MIN Diagnoses Delirium tremens F10.231 Alcohol withdrawal seizure F10.239; R56.9 Alcohol withdrawal F10.939 Complication of substance-induced condition: with unspecified complication Alcoholic liver disease K70.9 Essential hypertension I10 Alcoholism F10.20 Seizure R56.9 Elevated LFTs R79.89 Hepatic encephalopathy K72.90 Cirrhosis K74.60 Time Spent (min) 35 (3) Alcohol withdrawal Complication of substance-induced condition: with unspecified complication Qualified Code(s): F10.939 - Alcohol use, unspecified with withdrawal, unspecified
[2022-10-30] MEDS: dexMEDEtomidine 400 MCG/100 ML BAG IV SCH ×4 (02:34→20:34)
[2022-10-30] MEDS: LORazepam 2 MG/1 ML VIAL IV SCH ×4 (05:03→23:22)
[2022-10-30 05:13] LABS: BUN Creatinine Ratio 12.7 (10-20); Calcium 8.3 mg/dl (8.6-10.3); Creatinine Clr Calc Pharmacy 170.4 ml/min; Est GFR (African American) 137.9 ml/min; Potassium 3.5 mmol/L (3.5-5.1)
[2022-10-30] MEDS: ICU ELECTROLYTE REPLACEMENT PROTOCOL SCH ×2 (05:21→17:42)
[2022-10-30] MEDS: POT PHOSPHATE MONOBASIC W/ SOD TAB PO SCH ×3 (05:33→13:40)
[2022-10-30] MEDS: POTASSIUM CHLORIDE CRTAB 20 MEQ TABCR PO SCH ×2 (05:33→09:00)
[2022-10-30] MEDS: MAGNESIUM OXIDE 400 MG TAB PO SCH ×2 (05:33→09:01)
[2022-10-30] MEDS: ICU Protocol for HYPERglycemia SCH (07:32)
[2022-10-30] MEDS ORDERED: MAGNESIUM SULFATE / D5W 1 GM/100 ML BAG IV ONE (07:49)
--- NOTE | 2022-10-30 07:52 | Critical Care Progress Note ---
Date of Service October 30, 2022 Assessment & Plan (1) Delirium tremens: (2) Seizure: (3) Elevated LFTs: (4) Alcoholic liver disease: (5) Thrombocytopenia: (6) Essential hypertension: Plan Reason Critically Ill: 47-year-old male presented to the hospital because of alcohol withdrawal, went into DTs. Transferred to the ICU for further management Neuro - [facility] ICU: Positive --Delirium tremens Continue with benzodiazepines to keep RASS -1 Precedex drip to be started Intubated there is any worsening Continue with thiamine and folic acid --History of seizures On lamotrigine Did have a seizure prior to this hospitalization Ativan as needed Seizure precautions Cardiac - -- Tachycardia Likely from underlying DTs --Prolonged QT Avoid QT prolonging medications Keep potassium greater than 4, magnesium greater than 2, phosphorus greater than 3 Respiratory - -- COPD > [id number]-jtft smoking history Currently smoking half a pack a day Not in any exacerbation right now GI - -- Transaminitis Likely alcohol induced Discriminant factor 4.6, does not qualify for steroids Continue to trend RENAL/LYTES - -- No acute issues Replace electrolytes as per protocol ENDO - -- ICU hypoglycemia protocol TSH within normal limit HEME - -- Microcytic anemia Likely from alcohol use Continue to monitor --Thrombocytopenia Likely from bone marrow suppression from alcohol use Continue to monitor ID - No acute issues --Prophylaxis VTE: IPC GI: Pantoprazole Lines: Peripheral Diet: Cardiac diet Plan: In/out: -233, urine output 1750 Potassium, magnesium as well as phosphorus being replaced Continue with Ativan to 3 mg every 6 hours [id number]. Continue with tapering dose of gabapentin Try to titrate off Precedex if possible I have personally spent 36 minutes of critical care time in the direct management of this patient. This is a life/limb threatening event. This includes time spent evaluating patient, direct bedside care, chart review, placing orders, interpretation of diagnostic studies, discussion with consultants, patient, and family members, as well as other required patient management activities. This time is exclusive of all separately billable procedures, and teaching time and separate from and in addition to any other critical care service time. Admission and Anticipated Discharge Date Admission Date: October 26, 2022 Subjective Patient seen and examined at bedside. Patient was restless His heart rate was in the 120s, blood pressure in the 150s He just got another 3 mg of Ativan on top of his scheduled dose. Precedex was turned off early in the morning to see if he will be able to go without it. He is able to answer all the questions appropriately. Denies any auditory or tactile hallucinations Questionable visual hallucination Red bowel movements Fair appetite, no nausea or vomiting Review of Systems Review of Systems: All systems reviewed & are unremarkable except as noted in Subjective Physical Exam Physical Exam: Constitutional: No acute distress HEENT: EOMI, PERRLA, bruising of the left anterior lateral side of the tongue Respiratory system: Decreased air entry bilaterally, no wheeze, no rhonchi, mild crackles bilateral lower lobes CVS: S1-S2 positive, no murmurs or gallops Abdomen: Soft, nontender, nondistended, positive bowel sounds x4 Extremities: +2 pulses bilaterally radialis/ dorsalis pedis, no cyanosis, no edema Neuro: Awake alert oriented to self, place and time Psych: Restless mood and affect G/U: No Renee Skin: no rashes, warm and dry Lymphatic: no cervical or axillary lymphadenopathy Results & Data Results & Data Vital Signs (Past 12 Hours) Vital Signs Temp Pulse Resp BP Pulse Ox 10/30/22 06:03 85 0 L 97 10/30/22 06:03 160/115 H 10/30/22 06:01 83 97 10/30/22 06:00 85 97 10/30/22 05:50 82 0 L 96 10/30/22 05:40 86 0 L 96 10/30/22 05:30 87 0 L 96 10/30/22 05:20 82 0 L 95 10/30/22 05:10 103 H 0 L 97 10/30/22 05:00 92 H 0 L 96 10/30/22 05:00 165/125 H 10/30/22 04:50 86 0 L 96 10/30/22 04:40 86 0 L 96 10/30/22 04:30 85 0 L 86 L 10/30/22 04:20 79 0 L 98 10/30/22 04:10 104 H 0 L 98 10/30/22 04:00 96 H 0 L 97 10/30/22 04:00 169/134 H 10/30/22 03:50 73 0 L 95 10/30/22 03:40 78 0 L 96 10/30/22 03:30 78 0 L 98 10/30/22 03:20 72 0 L 96 10/30/22 03:10 66 0 L 96 10/30/22 03:00 66 0 L 96 10/30/22 03:00 152/102 H 10/30/22 02:50 73 0 L 97 10/30/22 02:40 70 0 L 96 10/30/22 02:30 67 0 L 96 10/30/22 02:54 37 C 10/30/22 02:20 66 0 L 95 10/30/22 02:10 78 0 L 96 10/30/22 02:00 59 L 0 L 95 10/30/22 02:00 139/95 10/30/22 01:50 58 L 0 L 95 10/30/22 01:40 75 0 L 98 10/30/22 01:30 57 L 0 L 96 10/30/22 01:20 58 L 0 L 98 10/30/22 01:10 58 L 0 L 97 10/30/22 01:00 58 L 0 L 97 10/30/22 01:00 140/89 10/30/22 00:50 59 L 0 L 97 10/30/22 00:40 57 L 0 L 95 10/30/22 00:30 58 L 0 L 96 10/30/22 00:20 57 L 0 L 96 10/30/22 00:10 59 L 0 L 97 10/30/22 00:00 59 L 0 L 96 10/30/22 00:00 140/91 10/29/22 23:50 58 L 0 L 96 10/29/22 23:40 62 0 L 95 10/29/22 23:30 57 L 0 L 97 10/29/22 23:20 60 0 L 96 10/29/22 23:10 59 L 0 L 95 10/29/22 23:00 57 L 0 L 95 10/29/22 23:00 137/86 10/29/22 22:50 60 0 L 94 10/29/22 22:40 60 0 L 95 10/29/22 22:30 60 0 L 95 10/29/22 22:20 60 0 L 95 10/29/22 22:10 59 L 0 L 95 10/29/22 22:00 59 L 0 L 96 10/29/22 22:00 137/87 10/29/22 21:50 60 0 L 96 10/29/22 21:40 61 0 L 95 10/29/22 21:30 61 0 L 95 10/29/22 21:20 69 0 L 96 10/29/22 21:10 68 16 95 10/29/22 21:00 60 23 96 10/29/22 21:00 147/96 H 10/29/22 20:50 64 23 96 10/29/22 20:40 73 0 L 96 10/29/22 20:30 62 0 L 93 10/29/22 20:20 62 0 L 95 10/29/22 20:10 61 0 L 96 10/29/22 20:00 60 0 L 96 10/29/22 20:00 147/94 H 10/29/22 20:37 37 C Laboratory Results 10/29/22 04:29 10/30/22 04:34 Coding Level of Care Code 47742 CRITICAL CARE 1ST 30-74M Diagnoses Delirium tremens F10.231 Seizure R56.9 Elevated LFTs R79.89 Alcoholic liver disease K70.9 Thrombocytopenia D69.6 Essential hypertension I10 Time Spent (min) 36
[2022-10-30] MEDS: THIAMINE HCL 500 MG in SODIUM CHLORIDE 0.9% 50 ML IV SCH ×2 (07:53→15:33)
[2022-10-30] MEDS: FLUOCINONIDE 0.05% CR 15 GM TUBE EXT SCH ×2 (07:54→20:28)
[2022-10-30] MEDS: cloNIDine HCL 0.1 MG TAB PO SCH ×2 (07:54→20:22)
[2022-10-30] MEDS: FOLIC ACID 1 MG TAB PO SCH (07:55)
[2022-10-30] MEDS: GABAPENTIN 600 MG TAB PO SCH (07:55)
[2022-10-30] MEDS: lisinopril 20 MG TAB PO SCH (07:56)
[2022-10-30] MEDS: lamoTRIgine 100 MG TAB PO SCH ×2 (07:56→20:22)
[2022-10-30] MEDS: LORATADINE 10 MG TAB PO SCH (07:57)
[2022-10-30] MEDS: LORazepam 2 MG/1 ML VIAL IV PRN ×2 (08:08→21:24)
[2022-10-30] MEDS: PANTOprazole 40 MG TAB PO SCH (11:21)
--- NOTE | 2022-10-30 17:26 | Hospitalist Progress Note ---
Date of Service October 30, 2022 Assessment & Plan (1) Delirium tremens: Plan: toxic metabolic encephalopathy secondary to alcohol Patient is now on Precedex drip and benzodiazepines. Plan is to intubate if needed Currently in the ICU. Critical care on board (2) Alcohol withdrawal seizure: Plan: tongue swelling/bite lorna c/w such. he takes lamictal 150mg BID chronically. mag/K replace to keep potassium greater than 4 and magnesium greater than 2. cont seizure precautions. (3) Alcohol withdrawal: Plan: see #1 above. now in DTs. per the medical record he drinks a combination of liquor/beer/wine seizure precautions. (4) Alcoholic liver disease: Plan: last u/s of liver showed signs of early cirrhosis. his LFTs are always elevated. I do not feel he is committed to stopping etoh - offered assistance to help him maintain sobriety following his withdrawal (either inpatient v outpatient) but he was not interested in any option. Previous Hep A/B/C testing in 2021 were all negative. Ammonia level 35 on 10/27. INR stable. (5) Essential hypertension: Plan: cont clonidine cont lisinopril may need adjustments may need BB therapy (6) Alcoholism: Plan: see above (7) Seizure: Plan: 2nd etoh withdrawal seizure just prior to admission see above (8) Elevated LFTs: Plan: due to early cirrhosis and ongoing alcoholic hepatitis (9) Hepatic encephalopathy: Plan: ammonia 35 on 10/27, 56 today 10/29 (10) Cirrhosis: Plan: 2nd etoh 11/2021 u/s showed early cirrhotic changes Plan the blood on his gown and sheets does not appear to be hematemesis or coffee- ground emesis looks more like blood from his L knee abrasion Continue PROTONIX IV in the event he has esophagitis, gastritis, etc updated pt's father at bedside Admission and Anticipated Discharge Date Admission Date: October 26, 2022 Subjective patient was taken off of Precedex drip overnight and became agitated. Now back on Precedex drip. Also getting benzodiazepines Review of Systems Review of Systems: Unobtainable due to reduced consciousness Physical Exam Physical Exam: General: Drowsy, arousable. Heart: S1, S2/regular rate and rhythm, no murmur rubs or gallops Lungs: Clear to auscultation bilaterally. Normal effort Abdomen: Soft/nontender/nondistended. No hepatosplenomegaly Extremities: No clubbing/cyanosis. No edema Behavior: Unable to assess Results & Data Results & Data Vital Signs (Past 12 Hours) Vital Signs Temp Pulse Resp BP Pulse Ox Pulse Ox O2 Del Method 10/30/22 16:00 83 0 L 92 10/30/22 16:00 137/95 10/30/22 15:30 81 0 L 94 10/30/22 16:20 36.6 C 10/30/22 16:00 80 10/30/22 15:00 80 0 L 94 10/30/22 15:00 137/88 10/30/22 14:30 86 0 L 94 10/30/22 14:00 94 H 0 L 97 10/30/22 14:00 160/97 H 10/30/22 13:30 94 H 0 L 95 10/30/22 13:00 90 0 L 96 10/30/22 13:00 137/95 10/30/22 12:30 94 H 0 L 96 10/30/22 12:00 107 H 0 L 95 10/30/22 12:00 153/106 H 10/30/22 11:39 120 H 0 L 96 10/30/22 11:39 172/133 H 10/30/22 11:30 123 H 0 L 10/30/22 11:00 110 H 0 L 10/30/22 10:30 80 0 L 10/30/22 10:00 92 H 0 L 10/30/22 09:30 95 H 0 L 10/30/22 12:03 37 C 10/30/22 08:00 103 H 10/30/22 08:00 96 Room Air 10/30/22 09:00 103 H 0 L 95 10/30/22 09:00 144/99 H 10/30/22 08:30 119 H 0 L 93 10/30/22 08:26 154/122 H 10/30/22 08:26 118 H 0 L 95 10/30/22 08:00 128 H 0 L 94 10/30/22 08:00 183/111 H 10/30/22 07:30 117 H 0 L 95 10/30/22 07:00 90 0 L 95 10/30/22 07:00 177/121 H 10/30/22 06:30 96 H 0 L 96 10/30/22 08:04 37 C 10/30/22 06:03 85 0 L 97 10/30/22 06:03 160/115 H 10/30/22 06:01 83 97 10/30/22 06:00 85 97 10/30/22 05:50 82 0 L 96 10/30/22 05:40 86 0 L 96 10/30/22 05:30 87 0 L 96 Laboratory Results Abnormal lab results 10/30/22 Range/Units 04:34 Sodium 135 L (136-145) mmol/L Calcium 8.3 L (8.6-10.3) mg/dl Phosphorus 2.0 L (2.5-4.9) mg/dl PG Care Time/CCT Total # of Minutes Spent Total Time Spent with Patient: Total time spent is greater than 50% in coordination of care (as documented) at patient's floor/unit and/or counseling patient: Coding Level of Care Code 79333 SUB INP/OBS CARE 235MIN Diagnoses Delirium tremens F10.231 Alcohol withdrawal seizure F10.239; R56.9 Alcohol withdrawal F10.939 Complication of substance-induced condition: with unspecified complication Alcoholic liver disease K70.9 Essential hypertension I10 Alcoholism F10.20 Seizure R56.9 Elevated LFTs R79.89 Hepatic encephalopathy K72.90 Cirrhosis K74.60 Time Spent (min) 35 (3) Alcohol withdrawal Complication of substance-induced condition: with unspecified complication Qualified Code(s): F10.939 - Alcohol use, unspecified with withdrawal, unspecified
[2022-10-30] MEDS ORDERED: GABAPENTIN 400 MG CAP PO SCH (18:00)
[2022-10-31] MEDS: LORazepam 2 MG/1 ML VIAL IV PRN ×2 (02:27→06:53)
[2022-10-31] MEDS: LORazepam 2 MG/1 ML VIAL IV SCH ×4 (05:14→22:06)
[2022-10-31] MEDS: lamoTRIgine 100 MG TAB PO SCH ×2 (07:47→22:05)
[2022-10-31] MEDS: cloNIDine HCL 0.1 MG TAB PO SCH ×2 (07:48→22:03)
[2022-10-31] MEDS: FOLIC ACID 1 MG TAB PO SCH (07:48)
[2022-10-31] MEDS: LORATADINE 10 MG TAB PO SCH (07:49)
[2022-10-31] MEDS: lisinopril 20 MG TAB PO SCH (07:49)
[2022-10-31] MEDS: GABAPENTIN 600 MG TAB PO SCH (07:49)
[2022-10-31] MEDS: THIAMINE HCL 100 MG TAB PO SCH (07:50)
[2022-10-31] MEDS: PANTOprazole 40 MG TAB PO SCH (07:50)
[2022-10-31 07:59] LABS: BUN Creatinine Ratio 9.7 (10-20); Calcium 9.8 mg/dl (8.6-10.3); Est GFR (African American) 130.6 ml/min; Est GFR (Non-African American) 112.7 ml/min; Magnesium 1.6 mg/dl (1.7-2.4); Phosphorus 2.7 mg/dl (2.5-4.9); Potassium 3.3 mmol/L (3.5-5.1)
[2022-10-31] MEDS ORDERED: GABAPENTIN 600 MG TAB PO SCH (09:00)
[2022-10-31] MEDS: FLUOCINONIDE 0.05% CR 15 GM TUBE EXT SCH ×2 (10:43→22:04)
--- NOTE | 2022-10-31 14:22 | Hospitalist Progress Note ---
Date of Service October 31, 2022 Assessment & Plan (1) Delirium tremens: Plan: toxic metabolic encephalopathy secondary to alcohol Patient is now off of Precedex drip. Continue benzodiazepines per CIWA protocol. now out of the ICU (2) Alcohol withdrawal seizure: Plan: tongue swelling/bite lorna c/w such. he takes lamictal 150mg BID chronically. mag/K replace to keep potassium greater than 4 and magnesium greater than 2. cont seizure precautions. (3) Alcohol withdrawal: Plan: see #1 above. now in DTs. per the medical record he drinks a combination of liquor/beer/wine seizure precautions. (4) Alcoholic liver disease: Plan: last u/s of liver showed signs of early cirrhosis. his LFTs are always elevated. I do not feel he is committed to stopping etoh - offered assistance to help him maintain sobriety following his withdrawal (either inpatient v outpatient) but he was not interested in any option. Previous Hep A/B/C testing in 2021 were all negative. Ammonia level 35 on 10/27. INR stable. (5) Essential hypertension: Plan: cont clonidine cont lisinopril may need adjustments may need BB therapy (6) Alcoholism: Plan: see above (7) Seizure: Plan: 2nd etoh withdrawal seizure just prior to admission see above (8) Elevated LFTs: Plan: due to early cirrhosis and ongoing alcoholic hepatitis (9) Hepatic encephalopathy: Plan: ammonia 35 on 10/27, 56 on 10/29 (10) Cirrhosis: Plan: 2nd etoh 11/2021 u/s showed early cirrhotic changes Plan the blood on his gown and sheets does not appear to be hematemesis or coffee- ground emesis looks more like blood from his L knee abrasion continue Protonix p.o. updated pt's father at bedside Admission and Anticipated Discharge Date Admission Date: October 26, 2022 Subjective Patient was able to wake up and talk to me. However he is still pleasantly confused. He says that he is weak and imbalanced. Per nurse, he is off of Precedex drip but has been getting Ativan Review of Systems Review of Systems: All systems reviewed & are unremarkable except as noted in Subjective Physical Exam Physical Exam: General: Sleeping, easily arousable. Heart: S1, S2/regular rate and rhythm, no murmur rubs or gallops Lungs: Clear to auscultation bilaterally. Normal effort Abdomen: Soft/nontender/nondistended. No hepatosplenomegaly Extremities: No clubbing/cyanosis. No edema Behavior: Unable to assess Results & Data Results & Data Vital Signs (Past 12 Hours) Vital Signs Temp Pulse Pulse Resp BP Pulse Ox O2 Del Method 10/31/22 11:48 36.8 C 99 H 18 155/99 H 97 Room Air 10/31/22 07:00 36.8 C 97 H 20 170/92 H 96 Room Air 10/31/22 09:04 Room Air 10/31/22 08:50 113 H 10/31/22 03:00 36.9 C 87 23 182/117 H 96 Room Air 10/31/22 02:40 37.5 C 97 H 21 181/112 H PG Care Time/CCT Total # of Minutes Spent Total Time Spent with Patient: Total time spent is greater than 50% in coordination of care (as documented) at patient's floor/unit and/or counseling patient: Coding Level of Care Code 49169 SUB INP/OBS CARE 2/35MIN Diagnoses Delirium tremens F10.231 Alcohol withdrawal seizure F10.239; R56.9 Alcohol withdrawal F10.939 Complication of substance-induced condition: with unspecified complication Alcoholic liver disease K70.9 Essential hypertension I10 Alcoholism F10.20 Seizure R56.9 Elevated LFTs R79.89 Hepatic encephalopathy K72.90 Cirrhosis K74.60 (3) Alcohol withdrawal Complication of substance-induced condition: with unspecified complication Qu alified Code(s): F10.939 - Alcohol use, unspecified with withdrawal, unspecified
[2022-11-01] MEDS: LORazepam 2 MG/1 ML VIAL IV SCH ×2 (04:52→13:31)
[2022-11-01 07:22] LABS: BUN Creatinine Ratio 10.5 (10-20); Calcium 9.8 mg/dl (8.6-10.3); Creatinine Clr Calc Pharmacy 130.7 ml/min; Est GFR (African American) 127.7 ml/min; Est GFR (Non-African American) 110.2 ml/min; Magnesium 1.5 mg/dl (1.7-2.4); Phosphorus 4.5 mg/dl (2.5-4.9); Potassium 3.7 mmol/L (3.5-5.1)
[2022-11-01] MEDS: GABAPENTIN 600 MG TAB PO SCH (08:07)
[2022-11-01] MEDS: FOLIC ACID 1 MG TAB PO SCH (08:07)
[2022-11-01] MEDS: lamoTRIgine 100 MG TAB PO SCH ×2 (08:08→20:59)
[2022-11-01] MEDS: lisinopril 20 MG TAB PO SCH (08:08)
[2022-11-01] MEDS: PANTOprazole 40 MG TAB PO SCH (08:08)
[2022-11-01] MEDS: THIAMINE HCL 100 MG TAB PO SCH (08:08)
[2022-11-01] MEDS: FLUOCINONIDE 0.05% CR 15 GM TUBE EXT SCH ×2 (08:09→21:01)
[2022-11-01] MEDS: cloNIDine HCL 0.1 MG TAB PO SCH ×2 (08:11→20:59)
[2022-11-01] MEDS: LORazepam 2 MG/1 ML VIAL IV PRN (08:29)
[2022-11-01] MEDS: LORATADINE 10 MG TAB PO SCH (09:15)
--- NOTE | 2022-11-01 12:03 | Hospitalist Progress Note ---
Date of Service November 01, 2022 Assessment & Plan (1) Delirium tremens: Plan: toxic metabolic encephalopathy secondary to alcohol Patient is now off of Precedex drip. Continue benzodiazepines per CIWA protocol. Discontinue Ativan IV [id number] Start Librium 25 mg p.o. 3 times daily Lower the dose of gabapentin to 300 mg daily now out of the ICU (2) Alcohol withdrawal seizure: Plan: tongue swelling/bite lorna c/w such. he takes lamictal 150mg BID chronically. mag/K replace to keep potassium greater than 4 and magnesium greater than 2. cont seizure precautions. (3) Alcohol withdrawal: Plan: see #1 above. now in DTs. per the medical record he drinks a combination of liquor/beer/wine seizure precautions. (4) Alcoholic liver disease: Plan: last u/s of liver showed signs of early cirrhosis. his LFTs are always elevated. I do not feel he is committed to stopping etoh - offered assistance to help him maintain sobriety following his withdrawal (either inpatient v outpatient) but he was not interested in any option. Previous Hep A/B/C testing in 2021 were all negative. Ammonia level 35 on 10/27. INR stable. (5) Essential hypertension: Plan: cont clonidine cont lisinopril may need adjustments may need BB therapy (6) Alcoholism: Plan: see above (7) Seizure: Plan: 2nd etoh withdrawal seizure just prior to admission see above (8) Elevated LFTs: Plan: due to early cirrhosis and ongoing alcoholic hepatitis (9) Hepatic encephalopathy: Plan: ammonia 35 on 10/27, 56 on 10/29 (10) Cirrhosis: Plan: 2nd etoh 11/2021 u/s showed early cirrhotic changes Plan the blood on his gown and sheets does not appear to be hematemesis or coffee- ground emesis looks more like blood from his L knee abrasion continue Protonix p.o. Admission and Anticipated Discharge Date Admission Date: October 26, 2022 Subjective Patient feels well. Denies chest pain or shortness of breath. Per nurse, CIWA score is coming down. Review of Systems Review of Systems: All systems reviewed & are unremarkable except as noted in Subjective Physical Exam Physical Exam: General: Sleeping, easily arousable. able to hold a conversation Heart: S1, S2/regular rate and rhythm, no murmur rubs or gallops Lungs: Clear to auscultation bilaterally. Normal effort Abdomen: Soft/nontender/nondistended. No hepatosplenomegaly Extremities: No clubbing/cyanosis. No edema Behavior: Appropriate, cooperative Results & Data Results & Data Vital Signs (Past 12 Hours) Vital Signs Temp Pulse Resp BP Pulse Ox O2 Del Method 11/01/22 09:17 36.6 C 115 H 18 139/95 11/01/22 08:00 37.4 C 126 H 19 144/108 H 96 Room Air 11/01/22 02:32 37 C 93 H 18 163/101 H 95 Room Air PG Care Time/CCT Total # of Minutes Spent Total Time Spent with Patient: Total time spent is greater than 50% in coordination of care (as documented) at patient's floor/unit and/or counseling patient: Coding Level of Care Code 02306 SUB INP/OBS CARE 2/35MIN Diagnoses Delirium tremens F10.231 Alcohol withdrawal seizure F10.239; R56.9 Alcohol withdrawal F10.939 Complication of substance-induced condition: with unspecified complication Alcoholic liver disease K70.9 Essential hypertension I10 Alcoholism F10.20 Seizure R56.9 Elevated LFTs R79.89 Hepatic encephalopathy K72.90 Cirrhosis K74.60 (3) Alcohol withdrawal Complication of substance-induced condition: with unspecified complication Qualified Code(s): F10.939 - Alcohol use, unspecified with withdrawal, un specified
[2022-11-01] MEDS: chlordiazePOXIDE HCl 25 MG CAP PO SCH ×2 (13:30→20:59)
[2022-11-02 06:44] LABS: BUN Creatinine Ratio 13.9 (10-20); Calcium 9.3 mg/dl (8.6-10.3); Creatinine Clr Calc Pharmacy 125.8 ml/min; Est GFR (African American) 125.7 ml/min; Est GFR (Non-African American) 108.4 ml/min; Magnesium 1.6 mg/dl (1.7-2.4); Phosphorus 3.4 mg/dl (2.5-4.9); Potassium 3.7 mmol/L (3.5-5.1)
[2022-11-02] MEDS: MAGNESIUM SULFATE / D5W 1 GM/100 ML BAG IV SCH ×3 (07:53→11:45)
[2022-11-02] MEDS: chlordiazePOXIDE HCl 25 MG CAP PO SCH ×2 (08:38→19:51)
[2022-11-02] MEDS: lamoTRIgine 100 MG TAB PO SCH ×2 (08:38→19:52)
[2022-11-02] MEDS: PANTOprazole 40 MG TAB PO SCH (08:39)
[2022-11-02] MEDS: lisinopril 20 MG TAB PO SCH (08:39)
[2022-11-02] MEDS: FOLIC ACID 1 MG TAB PO SCH (08:39)
[2022-11-02] MEDS: THIAMINE HCL 100 MG TAB PO SCH (08:39)
[2022-11-02] MEDS: FLUOCINONIDE 0.05% CR 15 GM TUBE EXT SCH ×2 (08:40→19:52)
[2022-11-02] MEDS: LORATADINE 10 MG TAB PO SCH (08:41)
[2022-11-02] MEDS: cloNIDine HCL 0.1 MG TAB PO SCH ×2 (08:44→19:51)
[2022-11-02] MEDS ORDERED: GABAPENTIN 600 MG TAB PO SCH (09:00)
[2022-11-02] MEDS ORDERED: POTASSIUM CHLORIDE CRTAB 20 MEQ TABCR PO STA (10:27)
--- NOTE | 2022-11-02 10:29 | Hospitalist Progress Note ---
Date of Service November 02, 2022 Assessment & Plan (1) Delirium tremens: Plan: toxic metabolic encephalopathy secondary to alcohol Patient is now off of Precedex drip. Continue benzodiazepines per CIWA protocol. lower the frequency of Librium from 25 mg 3 times daily to twice daily. Discontinue gabapentin (2) Alcohol withdrawal seizure: Plan: tongue swelling/bite lorna c/w such. he takes lamictal 150mg BID chronically. mag/K replace to keep potassium greater than 4 and magnesium greater than 2. cont seizure precautions. (3) Alcohol withdrawal: Plan: see #1 above. alcohol withdrawal phase is passing per the medical record he drinks a combination of liquor/beer/wine seizure precautions. (4) Alcoholic liver disease: Plan: last u/s of liver showed signs of early cirrhosis. his LFTs are always elevated. I do not feel he is committed to stopping etoh - offered assistance to help him maintain sobriety following his withdrawal (either inpatient v outpatient) but he was not interested in any option. Previous Hep A/B/C testing in 2021 were all negative. Ammonia level 35 on 10/27. INR stable. (5) Essential hypertension: Plan: cont clonidine cont lisinopril may need adjustments may need BB therapy (6) Alcoholism: Plan: see above (7) Seizure: Plan: 2nd etoh withdrawal seizure just prior to admission see above (8) Elevated LFTs: Plan: due to early cirrhosis and ongoing alcoholic hepatitis (9) Hepatic encephalopathy: Plan: ammonia 35 on 10/27, 56 on 10/29 (10) Cirrhosis: Plan: 2nd etoh 11/2021 u/s showed early cirrhotic changes (11) Physical deconditioning: Plan: PT/OT consulted (12) Constipation: Plan: ordered MiraLAX and Colace Admission and Anticipated Discharge Date Admission Date: October 26, 2022 Subjective patient continues to do better. Has not needed as needed Ativan yesterday. CIWA scores are better. Patient complains of being wobbly and imbalanced. Nurse stated that the patient did not have a bowel movement in a few days. Review of Systems Review of Systems: All systems reviewed & are unremarkable except as noted in Subjective Physical Exam Physical Exam: General: awake, conversant Heart: S1, S2/regular rate and rhythm, no murmur rubs or gallops Lungs: Clear to auscultation bilaterally. Normal effort Abdomen: Soft/nontender/nondistended. No hepatosplenomegaly Extremities: No clubbing/cyanosis. No edema Behavior: Appropriate, cooperative Results & Data Results & Data Vital Signs (Past 12 Hours) Vital Signs Temp Pulse Pulse Resp BP Pulse Ox O2 Del Method 11/02/22 07:56 37.1 C 81 19 146/97 H 94 Room Air 11/02/22 02:38 37 C 84 18 137/91 94 Room Air 11/01/22 23:00 92 H 11/01/22 22:54 36.8 C 101 H 18 138/99 96 Room Air PG Care Time/CCT Total # of Minutes Spent Total Time Spent with Patient: Total time spent is greater than 50% in coordination of care (as documented) at patient's floor/unit and/or counseling patient: Coding Level of Care Code 23681 SUB INP/OBS CARE 2/35MIN Diagnoses Delirium tremens F10.231 Alcohol withdrawal seizure F10.239; R56.9 Alcohol withdrawal F10.939 Complication of substance-induced condition: with unspecified complication Alcoholic liver disease K70.9 Essential hypertension I10 Alcoholism F10.20 Seizure R56.9 Elevated LFTs R79.89 Hepatic encephalopathy K72.90 Cirrhosis K74.60 Physical deconditioning R53.81 Constipation K59.00 (3) Alcohol withdrawal Complication of substance-induced condition: with unspecified complication Qualified Code(s): F10.939 - Alcohol use, unspecified with withdrawal, unspecified
[2022-11-02] MEDS: POLYETHYLENE (MIRALAX) 17 GM PACK PO PRN (11:11)
[2022-11-02] MEDS: DOCUSATE SODIUM 100 MG CAP PO SCH (19:52)
[2022-11-03 07:14] LABS: BUN Creatinine Ratio 15.1 (10-20); Calcium 9.3 mg/dl (8.6-10.3); Creatinine Clr Calc Pharmacy 136.1 ml/min; Est GFR (African American) 129.8 ml/min; Magnesium 1.9 mg/dl (1.7-2.4); Phosphorus 3.2 mg/dl (2.5-4.9); Potassium 4.1 mmol/L (3.5-5.1)
[2022-11-03] MEDS: POLYETHYLENE (MIRALAX) 17 GM PACK PO PRN (08:53)
[2022-11-03] MEDS: PANTOprazole 40 MG TAB PO SCH (08:54)
[2022-11-03] MEDS: FOLIC ACID 1 MG TAB PO SCH (08:54)
[2022-11-03] MEDS: LORATADINE 10 MG TAB PO SCH (08:54)
[2022-11-03] MEDS: lisinopril 20 MG TAB PO SCH (08:54)
[2022-11-03] MEDS: THIAMINE HCL 100 MG TAB PO SCH (08:54)
[2022-11-03] MEDS: cloNIDine HCL 0.1 MG TAB PO SCH (08:55)
[2022-11-03] MEDS: FLUOCINONIDE 0.05% CR 15 GM TUBE EXT SCH (08:55)
[2022-11-03] MEDS: lamoTRIgine 100 MG TAB PO SCH (08:55)
[2022-11-03] MEDS: DOCUSATE SODIUM 100 MG CAP PO SCH (08:55)
[2022-11-03] MEDS ORDERED: chlordiazePOXIDE HCl 25 MG CAP PO SCH (09:00)
--- NOTE | 2022-11-03 12:32 | Discharge Summary ---
Date of Service November 03, 2022 Admission HPI Per Admitting Provider The patient is a 47-year-old male with a past medical history including alcoholism, delirium tremens, seizures, thrombocytopenia, closed head injury, alcoholic liver disease, hepatic encephalopathy, alcohol withdrawal seizure and hypertension. Patient reports he had a seizure earlier in the day today, that is out last alcohol intake was 3 days ago, and had severe shakes at this time. He reports that he been taking his other medications as directed but has not had his evening dosages yet Admission Exam Per Admitting Provider The patient is awake, alert and oriented 3, has whole body shakes and tremors, normocephalic and atraumatic, sitting upright in bed and in no otherwise acute distress. HEENT--PERRL, EOMI, mucous membranes and oropharynx dry. Neck--supple. No JVD. No bruits. Thyroid normal, trachea midline, no adenopathy. Heart--normal S1 and S2. No murmurs, rubs or gallops. Lungs--clear bilaterally, no respiratory distress, no accessory muscle use. Abdomen--normal bowel sounds and soft. Nontender. Nondistended, no hernias or masses, no organomegaly. Extremities--no cyanosis or clubbing. No edema. Dermatologic--normal skin turgor, normal color, no abnormal lymph nodes, no rash. Neurologic--cranial nerves II through XII grossly intact. Limited exam Rheumatologic-Limited exam Psychiatric--anxious and with tremors Principal Diagnosis alcohol withdrawal, delirium tremens Discharge Exam General: awake, conversant Heart: S1, S2/regular rate and rhythm, no murmur rubs or gallops Lungs: Clear to auscultation bilaterally. Normal effort Abdomen: Soft/nontender/nondistended. No hepatosplenomegaly Extremities: No clubbing/cyanosis. No edema Behavior: Appropriate, cooperative Discharge Data Allergies Allergy/AdvReac Type Severity Reaction Status Date / Time No Known Allergies Allergy Mild Verified 05/24/22 13:20 Consultations 10/26/22 19:19 ED Decision to Admit Stat 10/28/22 08:34 Consult [employer]print [employer] Routine Ordered Studies 10/26/22 17:38 CT head/brain wo con Stat Hospital Course (1) Delirium tremens: toxic metabolic encephalopathy secondary to alcohol Patient is now off of Precedex drip. benzodiazepines discontinued Librium discontinued gabapentin discontinued The withdrawal phase has passed (2) Alcohol withdrawal seizure: tongue swelling/bite lorna c/w such. he takes lamictal 150mg BID chronically. mag/K replace to keep potassium greater than 4 and magnesium greater than 2. withdrawal phase has passed (3) Alcohol withdrawal: per the medical record he drinks a combination of liquor/beer/wine withdrawal phase has passed (4) Alcoholic liver disease: last u/s of liver showed signs of early cirrhosis. his LFTs are always elevated. I do not feel he is committed to stopping etoh - offered assistance to help him maintain sobriety following his withdrawal (either inpatient v outpatient) but he was not interested in any option. Previous Hep A/B/C testing in 2021 were all negative. Ammonia level 35 on 10/27. INR stable. (5) Essential hypertension: cont clonidine cont lisinopril (6) Alcoholism: the patient does not seem to be motivated to stop drinking. He declined offers for rehab. (7) Seizure: 2nd etoh withdrawal seizure just prior to admission see above (8) Elevated LFTs: due to early cirrhosis and ongoing alcoholic hepatitis (9) Hepatic encephalopathy: ammonia 35 on 10/27, 56 on 10/29 (10) Cirrhosis: 2nd etoh 11/2021 u/s showed early cirrhotic changes (11) Physical deconditioning: PT/OT consulted The patient is able to walk and has been cleared by PT/OT for discharge to home (12) Constipation: ordered MiraLAX and Colace Plan discharge to home today Total Time Total Time Spent Total Time Spent (In Minutes): 35 Discharge Plan Discharge Items Patient Disposition: Home - Self-Care Reason For Visit: ALCOHOL WITHDRAWAL Discharge Diagnosis: Alcohol withdrawal with delirium tremens Activity: Resume your previous activity Non-emergency contact: Primary Care Provider Call non-emergency contact if: you have any medication questions and your symptoms worsen Follow-up/Referrals: Luis Antonio Guevara [Primary Care Provider] - Diet: Regular Addtl Attending Provider Instructions: Advised on complete alcohol cessation Advised to see PCP in 1 week Pending Studies at Discharge: No Stand-Alone Forms: My [facility] Medications and DC Order Prescriptions: Continued fluocinonide 0.05 % cream 1 applic topical BID Qty: 60 0RF Rx Instructions: Apply to areas of the trunk and extremities twice daily x 2 weeks as directed. lamotrigine [Lamictal] 150 mg tablet 150 mg PO BID Rx Instructions: Taken @ 0730 clonidine HCl 0.1 mg tablet 0.2 mg PO BID lisinopril 20 mg tablet 20 mg PO DAILY folic acid 1 mg tablet 1 mg PO DAILY loratadine [Claritin] 10 mg tablet 10 mg PO DAILY Qty: 14 0RF Discharge Orders: Discharge Order (Routine); Ordered 11/03/22 Ordered By: Mayank Mendez Admission Data Admit Date/Time: 10/26/22 21:21 Attending Provider: Mayank Mendez Admit Provider: Mike Lombardo Primary Care Provider: Luis Antonio Guevara Other Providers: Mike Lombardo ; Eliseo Fraser Other Interventions: Discharge Summary Assessment (RN) Last Done: 11/03/22 12:38 Coding Level of Care Code 17719 INP/OBS DISCH >30 MIN Diagnoses Delirium tremens F10.231 Alcohol withdrawal seizure F10.239; R56.9 Alcohol withdrawal F10.939 Complication of substance-induced condition: with unspecified complication Alcoholic liver disease K70.9 Essential hypertension I10 Alcoholism F10.20 Seizure R56.9 Elevated LFTs R79.89 Hepatic encephalopathy K72.90 Cirrhosis K74.60 Physical deconditioning R53.81 Constipation K59.00
== END 2022-11-03 14:02 | disposition home or self-care (01) | DRG 896 ==
LOC: ED 17:20 → 2S 21:21 → SUATTDRO 21:21 → 2S 22:45 → 1E 10-28 08:48 → 2E 10-30 20:20

== ENCOUNTER 2023-01-29 11:58 | Inpatient (IN) ==
[2023-01-29] MEDS ORDERED: LORazepam 1 MG/1 ML SYR ED Inj Use IV STA ×2 (12:11→12:23)
[2023-01-29] MEDS ORDERED: SODIUM CHLORIDE 0.9% 500 ML IV ONE (12:11)
[2023-01-29] MEDS ORDERED: MULTI-VITAMIN INFUSION 10 ML, THIAMINE HCL 100 MG, FOLIC ACID 1 MG in SODIUM CHLORIDE 0... IV ONE (12:11)
[2023-01-29] MEDS ORDERED: ONDANSETRON INJ 2 MG/ML 2 ML VIAL IV STA (12:13)
[2023-01-29] MEDS ORDERED: PROMETHAZINE 12.5 MG/50.5 ML BAG IV STA (12:13)
[2023-01-29] MEDS ORDERED: LORazepam 2 MG/1 ML VIAL ONE (12:21)
--- NOTE | 2023-01-29 12:27 | Emergency Department Note ---
Impression & Plan Seizures, Alcohol withdrawal, Tachycardia, Vomiting ED Provider Note NAME: WILEY CHRISTIANSON AGE: 47 SEX: M : 1975 ARRIVES VIA: Walk-In INFORMANT: [Patient][family] ED PROVIDER(S): [Joshua Reeves MD] CHIEF COMPLAINT: Seizure HISTORY OF PRESENT ILLNESS: The patient is a 47-year-old male with a history of alcoholism. He has had alcohol withdrawal seizures before. He does also have epilepsy and is on Lamictal. The patient states he last had alcohol 2 days ago, Friday. This morning, he was shaky, sweating and as per his family, he had a 2-minute tonic- clonic episode while in bed. The patient is amnestic of what happened. He did not bite his tongue or lose his urinary incontinence. He presents here with family asking for help. The patient did take his morning meds including his Lamictal this morning. There has been no cough or congestion. He did have a bit of vomiting prior to arrival. No diarrhea. PMHx/PSHx/Social Hx: See Below PHYSICAL EXAM: GENERAL: Patient is in moderate distress, shaking, tremulous. Sweaty. HEENT: No acute trauma, normocephalic atraumatic, mucous membranes moist, no nasal congestion. NECK: No stridor, no adenopathy, no meningismus, trachea is midline. LUNGS: Coarse breath sounds bilaterally with an increased respiratory rate, no wheezing or respiratory distress. HEART: Somewhat tachycardic, distant heart tones, regular rhythm. ABDOMEN: Soft, nontender, no peritonitis. EXTREMITIES: No cyanosis, full range of motion of all the joints without pain or difficulty. There are some older contusions about his extremities, the contusions are of different ages. NEUROLOGIC: Oriented x 3, no acute motor or sensory deficits, no focal weakness. Generalized tremulousness and shaking noted. SKIN: No jaundice, mild diaphoresis. DIFFERENTIAL DIAGNOSIS: Alcohol withdrawal, seizure, electrolyte imbalance, dehydration, dysrhythmia, liver or renal injury, among others. EMERGENCY DEPARTMENT PROCEDURES: MEDICAL DECISION MAKING: There is no leukocytosis. The patient does have a mild anemia, the anemia has been documented before. A thrombocytopenia was noted, this has been documented before. There was no coagulopathy. The patient did have findings of presumed acidosis with a lower CO2 as well as an anion gap. Lactic acid level was not elevated making severe sepsis less likely. Liver enzymes were high, this has been noted before. Urinalysis showed findings of dehydration, no obvious infection. Alcohol level was undetectable. Chest film did not show pneumonia or CHF. ECG showed a sinus tachycardia with significant baseline artifact. On exam, the patient was shaking and tremulous, he was diaphoretic, hypertensive and tachycardic. The patient was aggressively managed. He was given a 500 cc saline bolus and then ordered for a 1 L banana bag. He received 2 mg of IV Ativan, 4 mg of IV Zofran, 12.5 mg of IV Phenergan. Shortly after my evaluation, the patient had a short-lived 30 to 45-second tonic-clonic seizure. This started as the IV Ativan was being pushed. By the time I got back to the room, the seizure was finished. The patient appeared postictal. I spoke with the family, I did speak with Dr. Daly of the ICU. I spoke with case management as well as the on-call hospitalist. Patient is doing better since being treated here in the ED. No further seizure activity since the first dose of Ativan. The patient is going require a hospital stay, likely in the ICU. He appears to be suffering from alcohol withdrawal seizures. Prior/Outside records/notes reviewed: Discharge summary note from 11/03/2022 discussing his alcohol withdrawal and DTs. ECG per my interpretation: Indication was seizure. The ECG shows what appears to be a sinus tachycardia with a rate of 104. There is significant baseline artifact seen. There is no obvious ST elevation, no PVCs. The QTc is 554. Continuous Cardiac Monitoring per my interpretation: An order was placed for continuous cardiac monitoring. The monitor shows a rate of 128 with sinus tachycardia. Imaging/x-ray results per my interpretation: Chest x-ray does not show mediastinal widening, pneumonia or pneumothorax. Chronic Medical/Social conditions affecting care: Alcohol abuse, alcoholism. Care/Management discussed with: The ICU, Dr. Daly. Case management, the on- call hospitalist. Level of care consideration(s): After review of the information above and other included data: --I believe the patient requires escalation of care to admission Critical Care Note: I have personally spent 61 minutes of critical care time in the direct management of this patient. This includes bedside care, interpretation of diagnostic studies, and testing, discussion with consultants, patient, and family members, and other required patient management activities. This 61 minutes is in excess of all separately billable procedures. DISPOSITION: Admission Past Med/Surg History Medical History Depression Constipation Physical deconditioning Delirium tremens Metabolic encephalopathy Alcoholism Essential hypertension Seizures (~11/16/21) Surgical History No pertinent past surgical history Family History Father Skin cancer of face Denies family history of Alcoholism Seizure disorder Social History Smoking Status: Current every day smoker Tobacco Type: Cigarettes Cigarettes Per Day: 10; Second Hand Exposure: No; Do You Dip or Chew Tobacco: No; Hx Alcohol Use: Yes Alcohol type: hard liquor Alcohol type Comment: DAILY consumption, mixture of bottle of wine, bottle of liquor, and/or beer Hx Substance Use: No Preferred Language: [place]al[place] Communication Ability: Effective Group Manager Required: No Beliefs That Will Affect Care: None marital status: Single marital status details: x 2 Current Living Situation: Parent Current Living Situation Comment: lives w/ father in [place] current occupational status: 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[employer] How many Children do You have: 0 Feels Safe at Home: Yes Assistive Devices: Denture - Upper and Glasses Allergies Allergies Allergy/AdvReac Type Severity Reaction Status Date / Time No Known Allergies Allergy Mild Verified 05/24/22 13:20 Home Meds Home Medications Medication Instructions Recorded Confirmed lamotrigine 150 mg tablet 150 mg PO BID 01/13/21 01/29/23 (Lamictal) clonidine HCl 0.1 mg tablet 0.2 mg PO BID 11/11/21 01/29/23 folic acid 1 mg tablet 1 mg PO DAILY 11/11/21 01/29/23 lisinopril 20 mg tablet 20 mg PO DAILY 11/11/21 01/29/23 fluocinonide 0.05 % topical cream 1 applic topical BID PRN Rash 01/29/23 01/29/23 loratadine 10 mg tablet (Claritin) 10 mg PO DAILY PRN allergies 01/29/23 01/29/23 Results & Data (ED) Vital Signs Vital Signs - 24 hr 01/29/23 12:00 01/29/23 12:24 01/29/23 12:34 Temperature 37.4 C Temperature Source Temporal Artery Scan Pulse Rate 96 H 137 H Pulse Rate [Apical] 111 H Pulse Rhythm [Apical] Regular Respiratory Rate 18 31 H Respiratory Effort / Characteristics Non-Labored Spontaneous Non-Labored Spontaneous Respiratory Depth Normal Normal Respiratory Pattern Regular Tachypnea Blood Pressure 149/80 H Blood Pressure [Left Arm] 159/105 H Blood Pressure Mean 103 Blood Pressure Mean [Left Arm] 123 Blood Pressure Position Sitting Blood Pressure Position [Left Arm] Lying Pulse Oximetry 99 92 Oxygen Delivery Method Room Air Room Air Oxygen Flow Rate Sepsis Recent Fever Within 48 Hours No Sepsis New/Unexplained Change in Mental Status N/A Sepsis Action Taken by Nursing No Action Required Oxygen Flow Rate - Titration Pulse Oximetry Post Tiitration 01/29/23 13:00 01/29/23 14:08 Temperature 37.2 C Temperature Source Oral Pulse Rate Pulse Rate [Apical] 105 H Pulse Rhythm [Apical] Regular Respiratory Rate 18 Respiratory Effort / Characteristics Non-Labored Spontaneous Respiratory Depth Normal Respiratory Pattern Regular Blood Pressure Blood Pressure [Left Arm] 148/97 H Blood Pressure Mean Blood Pressure Mean [Left Arm] 114 Blood Pressure Position Blood Pressure Position [Left Arm] Lying Pulse Oximetry 88 L 94 Oxygen Delivery Method Nasal Cannula Nasal Cannula Oxygen Flow Rate 0 2 Sepsis Recent Fever Within 48 Hours Sepsis New/Unexplained Change in Mental Status Sepsis Action Taken by Nursing Oxygen Flow Rate - Titration 2 Pulse Oximetry Post Tiitration 96 Home Medications Current Medication List: was personally reviewed by me Laboratory Data Attestation: I reviewed the patient's lab results. 01/29/23 12:10 01/29/23 15:00 Lab Results 01/29/23 01/29/23 Range/Units 12:10 12:11 WBC 5.49 (4.8-10.8) K/ul RBC 3.57 L (4.70-6.10) M/uL Hgb 12.8 L (14.0-18.0) g/dl Hct 35.8 L (42.0-52.0) % MCV 100.3 H (80.0-100.0) fL MCH 35.9 H (25.0-34.0) pg MCHC 35.8 (32.0-36.0) g/dL RDW Std Deviation 57.3 H (36.4-46.3) fL RDW Coeff of Amena 15.4 H (11.5-14.5) % Plt Count 50 L (130-400) K/uL MPV 10.9 (9.4-12.4) fL Immature Gran % (Auto) 0.5 % Neut % (Auto) 87.3 % Lymph % (Auto) 4.7 % [place] % (Auto) 7.3 % Eos % (Auto) 0.0 % Baso % (Auto) 0.2 % Neut # (Auto) 4.79 (1.40-6.50) K/uL Lymph # (Auto) 0.26 L (1.20-3.40) K/uL [place] # (Auto) 0.40 (0.11-0.59) K/uL Eos # (Auto) 0.00 (0.00-0.50) K/uL Baso # (Auto) 0.01 (0.00-0.20) K/uL Immature Gran # (Auto) 0.03 (0.01-0.20) K/uL PT 11.5 (9.0-12.0) Seconds INR 1.1 (0.9-1.1) APTT 25.9 (21.0-31.0) Seconds PTT Ratio 0.9 Sodium 132 L (136-145) mmol/L Potassium 5.4 H (3.5-5.1) mmol/L Chloride 95 L (98-107) mmol/L Carbon Dioxide 20 L (21-32) mmol/L Anion Gap 17 H (3-11) BUN 19 (6-23) mg/dl Creatinine 1.20 (0.6-1.4) mg/dl Est Cr Clr Drug Dosing 94.3 ml/min Est GFR ( Amer) 84.1 ml/min Est GFR (Non-Af Amer) 72.6 ml/min BUN/Creatinine Ratio 15.8 (10-20) Glucose 135 H (70-99(Fasting)) mg/dl Calcium 9.4 (8.6-10.3) mg/dl Magnesium 2.6 H (1.7-2.4) mg/dl Total Bilirubin 3.9 H (0.2-1.0) mg/dl AST 220 H (13-39) U/L ALT 110 H (7-52) U/L Alkaline Phosphatase 155 H (34-104) U/L Total Creatine Kinase 769 H (30-223) U/L Total Protein 9.0 H (6.0-8.3) gm/dl Albumin 4.7 (3.4-5.0) gm/dl Globulin 4.3 H (2.5-4.0) gm/dl Albumin/Globulin Ratio 1.1 (0.9-2) Acetaminophen 16 (10-30) ug/ml Ethyl Alcohol mg/dL < 10.0 (<10.0) mg/dl Administered Medications Dexmedetomidine/Sodium Chloride (Precedex) 200 mcg in 50 mls @ 7.358 mls/hr IV .Q6H48M ROBIN; Protocol Stop: 02/02/23 14:59 Last Titration: 01/29/23 16:46 Dose: 0.3 mcg/kg/hr, 7.4 mls/hr Documented By: Admin: 01/29/23 15:16 Dose: 0.4 mcg/kg/hr, 9.8 mls/hr Documented By: DAVID Co-signed By: YUKO Lorazepam 2 mg/ Syringe 2 mls @ 2 mls/min IV Q8H ROBIN Stop: 02/28/23 15:59 Last Admin: 01/29/23 16:45 Dose: 2 mls/min Documented By: LEONEL Miscellaneous (Icu Protocol For Hyperglycemia) 1 each N/A ACHS ROBIN Stop: 01/31/23 16:32 Last Admin: 01/29/23 16:45 Dose: 1 each Documented By: GPF Discontinued Medications Gabapentin (Gabapentin 400 Mg Cap) 800 mg PO NOW ONE Stop: 01/29/23 15:01 Last Admin: 01/29/23 15:16 Dose: 800 mg Documented By: DAVID Sodium Chloride (Nss) 500 mls @ 999 mls/hr IV .Q31M ONE Stop: 01/29/23 12:41 Last Infusion: 01/29/23 12:55 Dose: Infused Documented By: Admin: 01/29/23 12:32 Dose: 999 mls/hr Documented By: DAVID Multivitamins 10 ml/ Thiamine HCl 100 mg/ Folic Acid 1 mg/Sodium Chloride 1,011.2 mls @ 500 mls/hr IV .Q2H2M ONE Stop: 01/29/23 14:12 Last Infusion: 01/29/23 15:24 Dose: Infused Documented By: Admin: 01/29/23 12:51 Dose: 500 mls/hr Documented By: DAVID Promethazine HCl (Phenergan) 12.5 mg in 50.5 mls @ 202 mls/hr IV NOW STA Stop: 01/29/23 12:27 Last Infusion: 01/29/23 12:55 Dose: Infused Documented By: Admin: 01/29/23 12:30 Dose: 202 mls/hr Documented By: DAVID Lorazepam (Lorazepam 1 Mg/1 Ml Syr Ed Inj Use) 2 mg IV ONE STA Stop: 01/29/23 12:12 Last Admin: 01/29/23 12:23 Dose: 2 mg Documented By: DAVID Lorazepam (Lorazepam 2 Mg/1 Ml Vial) Confirm Administered Dose 2 mg .ROUTE .STK- MED ONE Stop: 01/29/23 12:22 Last Admin: 01/29/23 12:55 Dose: Not Given Documented By: DAVID Lorazepam (Lorazepam 1 Mg/1 Ml Syr Ed Inj Use) 2 mg IV ONE STA Stop: 01/29/23 12:24 Last Admin: 01/29/23 14:57 Dose: Not Given Documented By: DAVID Ondansetron HCl (Ondansetron Inj 2 Mg/Ml 2 Ml Vial) 4 mg IV NOW STA Stop: 01/29/23 12:14 Last Admin: 01/29/23 12:24 Dose: 4 mg Documented By: DAVID Imaging Data Radiologist's Impression: Chest X-Ray 01/29/23 12:52 XR chest 1V portable CLINICAL HISTORY: seizure TECHNIQUE: Single frontal radiograph of the chest was obtained. Comparison: Comparison is made to chest radiograph 10/26/2022 FINDINGS: No lines and tubes are seen. The cardiomediastinal silhouette is normal. The lungs are clear. No evidence of pleural effusion or pneumothorax. IMPRESSION: No acute chest disease. ACT 112: Negative or not required by law. Electronically signed by: Arie Dey M.D. 01/29/2023 1:17 PM Discharge Plan Visit Data Chief Complaint: Seizure Stated Complaint: ALCOHOL WITHDRAWL, SEIZURE THIS MORNING ED Provider: Joshua Reeves Discharge Problem: Seizures, Alcohol withdrawal, Tachycardia, Vomiting Patient Disposition: Admitted As Inpatient Condition: Serious Discharge Instructions Interventions: ED Discharge Assessment Last Done: 01/29/23 16:50 Discharge Problem: Alcohol withdrawal Qualifiers: Complication of substance-induced condition: with unspecified complication Q ualified Code(s): F10.939 - Alcohol use, unspecified with withdrawal, unspecified Vomiting Qualifiers: Vomiting type: unspecified Nausea presence: with nausea Qualified Code(s): R 11.2 - Nausea with vomiting, unspecified
[2023-01-29 12:32] LABS: Basophils # (auto) 0.01 K/uL (0.00-0.20); Basophils % (auto) 0.2 %; Hematocrit (blood only) 35.8 % (42.0-52.0); Hemoglobin 12.8 g/dl (14.0-18.0); Immature Granulocytes # (auto) 0.03 K/uL (0.01-0.20); Immature Granulocytes % (auto) 0.5 %; Lymphocytes # (auto) 0.26 K/uL (1.20-3.40); Lymphocytes % (auto) 4.7 %; Mean Corpuscular Hemoglobin 35.9 pg (25.0-34.0); Mean Corpuscular Hgb Conc 35.8 g/dL (32.0-36.0); Mean Corpuscular Volume 100.3 fL (80.0-100.0); Mean Platelet Volume 10.9 fL (9.4-12.4); Monocytes % (auto) 7.3 %; Neutrophils # (auto) 4.79 K/uL (1.40-6.50); Neutrophils % (auto) 87.3 %; Platelet Count 50 K/uL (130-400); RDW Coefficient of Variation 15.4 % (11.5-14.5); RDW Standard Deviation 57.3 fL (36.4-46.3); Red Blood Count 3.57 M/uL (4.70-6.10); White Blood Count 5.49 K/ul (4.8-10.8)
[2023-01-29 12:48] LABS: Albumin Globulin Ratio 1.1 (0.9-2); Albumin Level 4.7 gm/dl (3.4-5.0); BUN Creatinine Ratio 15.8 (10-20); Bilirubin,Total 3.9 mg/dl (0.2-1.0); Calcium 9.4 mg/dl (8.6-10.3); Creatinine Clr Calc Pharmacy 94.3 ml/min; Est GFR (African American) 84.1 ml/min; Est GFR (Non-African American) 72.6 ml/min; Globulin 4.3 gm/dl (2.5-4.0); Magnesium 2.6 mg/dl (1.7-2.4); Potassium 5.4 mmol/L (3.5-5.1)
[2023-01-29 13:09] LABS: INR 1.1 (0.9-1.1); Partial Thromboplastin Ratio 0.9; Partial Thromboplastin Time 25.9 Seconds (21.0-31.0); Prothrombin Time 11.5 Seconds (9.0-12.0)
--- NOTE | 2023-01-29 13:18 | XRay Report ---
XR chest 1V portable CLINICAL HISTORY: seizure TECHNIQUE: Single frontal radiograph of the chest was obtained. Comparison: Comparison is made to chest radiograph 10/26/2022 FINDINGS: No lines and tubes are seen. The cardiomediastinal silhouette is normal. The lungs are clear. No evid ence of pleural effusion or pneumothorax. IMPRESSION: No acute chest disease. ACT 112: Negative or not required by law. Electronically signed by: Arie Dey M.D. 01/29/2023 1:17 PM
--- NOTE | 2023-01-29 13:28 | History & Physical Report ---
Date of Service January 29, 2023 Assessment & Plan (1) Alcohol withdrawal seizure: Plan: Per family, patient experience 2-minute tonic-clonic seizure in bed the morning of 01/29 He had a second seizure lasting 30 seconds while in the ED on 01/29 Last alcohol drink on Saturday 01/27 Patient reports he drinks 2 jerome jars of flavored liquor daily Hx of severe alcohol withdrawal seizures AWSS protocol for lorazepam Seizure precautions Fall precautions Continuous telemetry monitoring Gabapentin 800mg load and taper Continue lamotrigine 150 mg; patient reports he took his lamotrigine the morning on 01/29 Supplemental oxygen as needed to maintain SPO2 > 94% We will defer to ICU for further withdrawal treatment A.m. CBC, BMP, mag (2) Delirium tremens: Plan: Hx of severe alcohol withdrawal seizures and DTs requiring Precedex and ICU admission in October 2022 No visual/auditory hallucinations at time of admission Likely to need IV Precedex infusion or similar (3) Depression: Plan: Patient reports he relapsed with alcohol d/t depression, life stressors Started drinking again 3-4weeks ago No suicidal ideations or thoughts of self-harm Discussed with patient if he would like to see anyone for depression while inpatient; patient reported he would like to think about Case management consult for alcohol cessation and possible rehab placement upon discharge (4) Elevated LFTs: Plan: Total bilirubin 3.9, AST 220, ALT 110, alk phos 155 Patient reports he takes acetaminophen 2 tabs BID for headaches Actetaminophen level ordered, pending LFTs are normal elevated; last U/S of the liver showed early signs of cirrhosis (5) Essential hypertension: Plan: Continue lisinopril Plan Disposition: Admit to ICU Full code Regular diet VTE PPx: Will defer to ICU History of Present Illness Chief Complaint: Seizure Primary Care Provider: Luis Antonio Su is a 47-year-old male with PMH of alcohol drawl, DT, seizures, alcoholic liver disease, and essential hypertension. He presented for a 2-minute tonic- clonic seizure in bed this morning 01/29, likely secondary to alcohol withdrawal. Last drink on Saturday 01/27 (2 days before admission). Hx of severe alcohol withdrawal with seizures and DT requiring Precedex and ICU admission in October 2022. Patient had a second tonic-clonic seizure lasting 30 to 45 seconds in the ED just prior to receiving Ativan. He reports that he drinks 2 bottles (july) of fruit flavored liquor per day, with last drink being on Saturday 01/27. His last alcohol withdrawal was in October. He reports that he started drinking and due to depression. He expresses a desire to drink less. Patient reports he took his morning medications, including his Lamictal (no missed doses per patient). He also reports that he takes Tylenol 500 mg 2 pills twice daily as needed for headaches. Patient is tachycardic at 105 BPM, and hypertensive at 148/97 at time of admission ED course: Lorazepam 2 mg IV Phenergan 12.5 mg Zofran 4 mg IV Banana bag (multivitamin, Thiamine, folic acid) x1 NSS 500 mL ROS: Patient endorses sweating. Patient denies pain at present, fever, dizziness, lightheadedness, GALLEGOS, photophobia, visual or auditory hallucinations, chest pain, SOB, abdominal pain, N/V/D, burning with urination, urinary s/s, black/bloody bowel movements, or numbness/tingling going down arms or legs. Social history: Patient denies smoking, vaping, and recreational drug use Allergies Allergy/AdvReac Type Severity Reaction Status Date / Time No Known Allergies Allergy Mild Verified 05/24/22 13:20 Home Medications Medication Instructions Recorded Confirmed Type lamotrigine 150 mg tablet 150 mg PO BID 01/13/21 01/29/23 History (Lamictal) clonidine HCl 0.1 mg tablet 0.2 mg PO BID 11/11/21 01/29/23 History folic acid 1 mg tablet 1 mg PO DAILY 11/11/21 01/29/23 History lisinopril 20 mg tablet 20 mg PO DAILY 11/11/21 01/29/23 History fluocinonide 0.05 % topical cream 1 applic topical BID PRN Rash 01/29/23 01/29/23 History loratadine 10 mg tablet (Claritin) 10 mg PO DAILY PRN allergies 01/29/23 01/29/23 History Past Med/Surg History Medical History Depression Constipation Physical deconditioning Delirium tremens Metabolic encephalopathy Alcoholism Essential hypertension Seizures (~11/16/21) Surgical History No pertinent past surgical history Family History Father Skin cancer of face Denies family history of Alcoholism Seizure disorder Social History Smoking Status: Current every day smoker Tobacco Type: Cigarettes Cigarettes Per Day: 10; Second Hand Exposure: No; Do You Dip or Chew Tobacco: No; Hx Alcohol Use: Yes Alcohol type: hard liquor Alcohol type Comment: DAILY consumption, mixture of bottle of wine, bottle of liquor, and/or beer Hx Substance Use: No Preferred Language: Canadian Communication Ability: Effective Cloth Pattern Maker Required: No Beliefs That Will Affect Care: None marital status: Single marital status details: x 2 Current Living Situation: Parent Current Living Situation Comment: lives w/ father in [place] current occupational status: 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 [place] How many Children do You have: 0 Feels Safe at Home: Yes Assistive Devices: Denture - Upper and Glasses Review of Systems Review of Systems: See HPI above Physical Exam Physical Exam: General: Diaphoretic; lethargic; cooperative; SPO2 93% on 2L NC HEENT: normocephalic, atraumatic; icteric sclera B/L; PERRLA w/ EOMs intact; patient wears contacts; moist mucus membrane; vision and hearing grossly intact Neck: supple; no lymphadenopathy; trachea midline Skin: warm, dry without signs of tenting; erythema, splotching along the upper neck; no cyanosis; no rashes, bruising, lesions, or erythema noted CV: chest wall NTP; regular rhythm, tachycardic at 110 bpm; S1/S2 normal; no murmurs/rubs/gallops; pulses intact and symmetric at radial, DP, and PT Lungs: no acute respiratory distress; symmetrical chest wall expansion; clear breath sounds across all lung leyva w/o adventitious sounds; no wheezing ABD: Soft, NTP; BS present; no rebound/guarding; no ascites; no distention MSK: no tics or fasciculations; no edema noted in the LEs b/l; positive asterixis Neuro: A&Ox2, oriented to name, birthday, location; not oriented to month; responds to questioning; sensation intact in the LEs B/L Results & Data Results & Data Vital Signs (Past 12 Hours) Vital Signs Temp Pulse Pulse Resp BP BP Pulse Ox 01/29/23 13:00 88 L 01/29/23 12:34 111 H 31 H 159/105 H 92 01/29/23 12:24 137 H 01/29/23 12:00 37.4 C 96 H 18 149/80 H 99 O2 Del Method O2 Flow Rate 01/29/23 13:00 Nasal Cannula 0 01/29/23 12:34 Room Air 01/29/23 12:24 01/29/23 12:00 Room Air Laboratory Results Abnormal lab results 01/29/23 Range/Units 12:10 RBC 3.57 L (4.70-6.10) M/uL Hgb 12.8 L (14.0-18.0) g/dl Hct 35.8 L (42.0-52.0) % MCV 100.3 H (80.0-100.0) fL MCH 35.9 H (25.0-34.0) pg RDW Std Deviation 57.3 H (36.4-46.3) fL RDW Coeff of Amena 15.4 H (11.5-14.5) % Plt Count 50 L (130-400) K/uL Lymph # (Auto) 0.26 L (1.20-3.40) K/uL Sodium 132 L (136-145) mmol/L Potassium 5.4 H (3.5-5.1) mmol/L Chloride 95 L (98-107) mmol/L Carbon Dioxide 20 L (21-32) mmol/L Anion Gap 17 H (3-11) Glucose 135 H (70-99(Fasting)) mg/dl Magnesium 2.6 H (1.7-2.4) mg/dl Total Bilirubin 3.9 H (0.2-1.0) mg/dl AST 220 H (13-39) U/L ALT 110 H (7-52) U/L Alkaline Phosphatase 155 H (34-104) U/L Total Protein 9.0 H (6.0-8.3) gm/dl Globulin 4.3 H (2.5-4.0) gm/dl Diagnostic Findings Chest X-Ray 01/29/23 12:52 XR chest 1V portable CLINICAL HISTORY: seizure TECHNIQUE: Single frontal radiograph of the chest was obtained. Comparison: Comparison is made to chest radiograph 10/26/2022 FINDINGS: No lines and tubes are seen. The cardiomediastinal silhouette is normal. The lungs are clear. No evidence of pleural effusion or pneumothorax. IMPRESSION: No acute chest disease. ACT 112: Negative or not required by law. Electronically signed by: Arie Dey M.D. 01/29/2023 1:17 PM Code Status & VTE Plan Code Status Full code VTE Prophylaxis Plan VTE Prophylaxis will be ordered: Yes Supervising Physician Co-Signing Physician Notes Patient seen and examined, chart reviewed, case discussed with Harjeet Pickard I agree with the assessment and plan as above except as otherwise noted Labs and images reviewed Freddie is a 47-year-old male with a history of alcohol abuse who presents with increasing tremulousness, tachycardia, sweating consistent with alcohol withdrawal, 1 seizure episode prior to arrival in the hospital and 1 observed seizure while in the ER which lasted approximately 30 seconds. He has a history of DTs and ICU admission for withdrawal. Freddie reports he does not want to drink and would like to get sober, but drinks to self medicate depression and feels better when he drinks. He reports he did stay sober for a little while after getting out of the hospital, but started drinking again due to depression. He would like to treat his depression and get sober if possible. He reports for at least 3 to 4 weeks he has been drinking 2 jerome jars of store-bought style liquor. Mckay jerome jar brands range up to 100-120 proof, ~500cc-750cc per jar. Patient reports he does take Lamictal and has been taking this every day including this morning has not missed any doses of this. He has not had a seizure since prior withdrawal, until his seizure this morning. He reports he does take Tylenol twice a day every day for generalized pain, takes two 500 mg tablets. Discussed the danger of using alcohol and Tylenol at the same time with patient and family at bedside. Alcohol level added and pending. Patient has transaminitis of AST/ALT 220/110 consistent with alcohol induced injury. He has no abdominal pain at bedside, no tenderness to palpation. He denies hematochezia, melena, hematemesis. He denies epigastric pain. BUN is not elevated. No history of varices. Hemoglobin normally ranges from approximately 1214, 12.8 on admission. MCV is 100.3. No signs of active bleeding on admission BMP repeat for volume contraction and mild hyperkalemia pending. EKG without peaked T waves. Severe alcohol withdrawal, history of delirium tremens and seizure Discussed with ICU FELIX. Will start precedex + AWSS. Admit to ICU. gabapentin/phenobarb not recommended. - CM consulted for etoh cessation resources, pt will need mental health resources for treatment of comorbid anxiety/depression on dc Agree w/ assessment and management above. PG Care Time/CCT Total # of Minutes Spent Total Time Spent with Patient: Total time spent is greater than 50% in coordination of care (as documented) at patient's floor/unit and/or counseling patient: [place] [address] INT INP/OBS CARE 3/75MIN Patient Type Established Medical Decision Making High Complexity Diagnoses Alcohol withdrawal seizure F10.239; R56.9 Delirium tremens F10.231 Depression F32.A Elevated LFTs R79.89 Essential hypertension I10
[2023-01-29] MEDS ORDERED: Ativan IV Alcohol Withdrawal--Active Protocol IV PRN (14:50)
[2023-01-29] MEDS ORDERED: LORazepam 3 MG in SYRINGE 1.5 ML IV PRN (14:50)
[2023-01-29] MEDS ORDERED: GABAPENTIN 800MG ALCOHOL WITHDRAWAL LOAD PO STA (14:50)
[2023-01-29] MEDS ORDERED: LORazepam 1 MG in SYRINGE 0.5 ML IV PRN (14:50)
[2023-01-29] MEDS ORDERED: STAT IV Infusion **Titration per Protocol STA (14:50)
[2023-01-29] MEDS ORDERED: GABAPENTIN 400 MG CAP PO ONE (15:00)
[2023-01-29] MEDS: dexMEDEtomidine 200 MCG/50 ML BAG IV SCH ×2 (15:16→18:49)
--- NOTE | 2023-01-29 15:26 | Critical Care Consultation ---
Date of Consultation January 29, 2023 Assessment & Plan (1) Alcohol withdrawal: (2) Alcohol withdrawal seizure: (3) Alcoholism: (4) Essential hypertension: (5) Thrombocytopenia: (6) Alcoholic liver disease: (7) Delirium tremens: Plan Reason Critically Ill: 47-year-old male with a significant past medical history of alcoholism who presented to the emergency department with breakthrough seizures x2 in the setting of alcohol withdrawal requiring heavy doses of Ativan and initiation of Precedex therapy. NEURO - * CAM ICU: NEGATIVE * Alcohol withdrawal: * Patient with significant history of alcohol abuse. He has been admitted on multiple occasions and required heavy doses of Ativan and ICU admission. * His withdrawal was complicated by an underlying seizure disorder for which she takes Lamictal. The patient presented with seizure x2. * Given the patient's recent episodes of seizures x2, we will place him on scheduled doses of Ativan as well as an AWSS scale for breakthrough symptoms. * We will start the patient on Precedex in the interim until we have his symp toms under better control. * High-dose thiamine ordered. * Ultimately, the patient would likely benefit from a long-term inpatient treatment center, however I am uncertain if he would be interested in this moving forward. * Seizure Disorder: * Per previous records, the patient is on Lamictal for history of epilepsy. Certainly, his seizure threshold is likely lower than second to alcohol withdrawal. * Continue with his home Lamictal dosing. * Platina Ativan use while withdrawing from alcohol. CARDIAC/VASCULAR - * Essential hypertension: * With hypertension on presentation. Likely in the setting of progressive delirium tremens. * We will see how his symptoms improve with treatment of his alcohol withdrawal. * Continue with home medications as tolerated. * Tachycardia: * In the setting of EtOH withdrawal. * Monitor on telemetry. RESPIRATORY - * Requiring 2L NC currently. * Titrate down as tolerated. * CXR without acute findings. Specifically no infiltrative changes suspicious for aspiration. GI/NUTRITION - * Transaminitis: * Worsening from priors. * Likely in the setting of significant alcohol abuse with alcoholic hepatitis. * Prior imaging studies of the liver showed steatosis as well as findings of cirrhosis. * No history of varices to this point. * Will check a CPK and Lactate. * Prophylaxis: Protonix RENAL/LYTES - * Slight degree of hyponatremia likely secondary to alcohol use. * IVF: Hold at this time. Allow for PO intake if able. Can consider IVF addition of his mental status declines further. - * No concerns at this time. ENDO - * No h/o DM or thyroid Dz. * BSGs per unit protocol. ISS --> gtt per unit policy. HEME - * Thrombocytopenia: * In the setting of alcoholism and liver disease. ID - * No concerns for infectious contribution at this time. LINES/IV ACCESS - * PIVs x2 DVT PROPHYLAXIS - * Hold on chemoprophylaxis in the setting of thrombocytopenia and risk of bleeding. * SCDs I have personally spent 45 minutes of critical care time in the direct manageme nt of this patient. This is a life/limb threatening event. This includes time spent evaluating patient, direct bedside care, chart review, placing orders, interpretation of diagnostic studies, discussion with consultants, patient, and family members, as well as other required patient management activities. This time is exclusive of all separately billable procedures, and teaching time and separate from and in addition to any other critical care service time. Thank you for allowing us to participate in the care of this patient. Please refer to my attending physician's documentation for any further recommendations. Supervising Physician Co-Signing Physician Notes Patient seen and examined. EMR reviewed. Discussed with critical care FELIX and agree with assessment and plan as noted. Continue Precedex and as needed Ativan. Will observe in the ICU. Hopefully can wean off Precedex and transfer to the floor. High-dose thiamine and folate. Gabapentin has also been initiated by the admitting service. Will continue for now. Case management will need to be involved in rehab if the patient is interested in alcohol abstinence. No indication for [facility] imaging, EEG, or antiepileptics in the setting of alcohol withdrawal seizures. History of Present Illness Reason for Consultation: Alcohol Withdrawal, Seizures Requesting Physician: Jose Juan Chamberlain PA-C Attending Physician: Colten Brasher MD History of Present Illness Patient is a 47-year-old male with a significant past medical history of alcoholism, seizure disorder, and prior history of alcohol withdrawal with complication of seizures who presented to the emergency department with breakthrough seizure after abstaining from alcohol since Friday. Patient also carries a history of epilepsy for which she is treated with Lamictal. Patient has been admitted on multiple previous occasions for alcohol withdrawal progressing to delirium tremens and requiring ICU level of care. Unfortunately, the patient did have 2 witnessed episodes of tonic-clonic seizure activity. He has received several doses of Ativan to this point. He remains tremulous and diaphoretic. He reports that he typically goes approximately a month a month and a half without drinking after his hospitalizations, but returns to drinking heavily afterwards. He drinks 1 to 2 quarts of mixed liquor approximately 25 to 30% alcohol concentration per day. His last drink was on Friday. Upon assessment in the emergency department, the patient had received several doses of Ativan. He reports feeling slightly less shaky at this time. He offers no complaints of headaches, fevers, recent illness, chest pain, palpitations, abdominal pain, hematemesis, hematochezia, or melena. Allergies Allergy/AdvReac Type Severity Reaction Status Date / Time No Known Allergies Allergy Mild Verified 05/24/22 13:20 Home Medications Medication Instructions Recorded Confirmed Type lamotrigine 150 mg tablet 150 mg PO BID 01/13/21 01/29/23 History (Lamictal) clonidine HCl 0.1 mg tablet 0.2 mg PO BID 11/11/21 01/29/23 History folic acid 1 mg tablet 1 mg PO DAILY 11/11/21 01/29/23 History lisinopril 20 mg tablet 20 mg PO DAILY 11/11/21 01/29/23 History fluocinonide 0.05 % topical cream 1 applic topical BID PRN Rash 01/29/23 01/29/23 History loratadine 10 mg tablet (Claritin) 10 mg PO DAILY PRN allergies 01/29/23 01/29/23 History Patient History Medical History (Updated 01/29/23 @ 13:39 by Jose Juan Chamberlain PA-C) Depression Constipation Physical deconditioning Delirium tremens Metabolic encephalopathy Alcoholism Essential hypertension Seizures (~11/16/21) Surgical History No pertinent past surgical history Family History Father Skin cancer of face Denies family history of Alcoholism Seizure disorder Social History Smoking Status: Current every day smoker Tobacco Type: Cigarettes Cigarettes Per Day: 10; Second Hand Exposure: No; Do You Dip or Chew Tobacco: No; Tobacco Cessation Education Requested by Patient: No Hx Alcohol Use: Yes Alcohol type: hard liquor Alcohol type Comment: DAILY consumption, mixture of bottle of wine, bottle of liquor, and/or beer Hx Substance Use: No Preferred Language: Lao Communication Ability: Effective Tanker Service Attendant Required: No Beliefs That Will Affect Care: None marital status: Single marital status details: x 2 Current Living Situation: Parent Current Living Situation Comment: lives w/ father in [place] current occupational status: 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 All else were negative. Physical Exam Physical Exam: VITAL SIGNS - Vital signs and nursing notes were reviewed. GENERAL - 47-year-old male appearing older than his stated age who is diaphoretic and tremulous. Communicates well with provider and answers questions appropriately. SKIN - Without rashes. HEAD - NC/AT. EYES - PERRL with EOMI bilaterally. Sclera anicteric. NOSE - Midline and without cyanosis. MOUTH/OROPHARYNX - Without perioral cyanosis. NECK - Neck with FROM. LUNGS - Chest wall symmetric without accessory muscle use, intercostals retractions, or central cyanosis. Normal vesicular breath sounds CTA B/L. No wheezes, rales, or rhonchi appreciated. CARDIAC - RRR with S1/S2. No murmur, rubs, or gallops appreciated. ABDOMEN - Abdominal contour obese without pulsations or visible masses. BS normoactive all four quadrants. No tenderness, palpable masses, hepatosplenomegaly, or ascites noted. EXTREMITIES - No pretibial edema present. +3/5 radial and dorsalis pedis pulses palpated throughout. +5/5 strength noted in UE/LE bilaterally. NEUROLOGIC - Cranial nerves II through XII grossly intact. PSYCH - A&Ox3 and cooperates fully with examiner. Without hallucinations currently. Results & Data Results & Data Vital Signs (Past 12 Hours) Vital Signs Temp Pulse Pulse Resp BP BP Pulse Ox 01/29/23 14:08 37.2 C 105 H 18 148/97 H 94 01/29/23 13:00 88 L 01/29/23 12:34 111 H 31 H 159/105 H 92 01/29/23 12:24 137 H 01/29/23 12:00 37.4 C 96 H 18 149/80 H 99 O2 Del Method O2 Flow Rate 01/29/23 14:08 Nasal Cannula 2 01/29/23 13:00 Nasal Cannula 0 01/29/23 12:34 Room Air 01/29/23 12:24 01/29/23 12:00 Room Air Coding Level of Care Code 22215 CRITICAL CARE 1ST 30-74M Diagnoses Alcohol withdrawal F10.939 Complication of substance-induced condition: with unspecified complication Alcohol withdrawal seizure F10.239; R56.9 Alcoholism F10.20 Essential hypertension I10 Thrombocytopenia D69.6 Alcoholic liver disease K70.9 Delirium tremens F10.231 (1) Alcohol withdrawal Complication of substance-induced condition: with unspecified complication Qualified Code(s): F10.939 - Alcohol use, unspecified with withdrawal, unspecified
[2023-01-29 15:27] LABS: BUN Creatinine Ratio 17.4 (10-20); Calcium 8.3 mg/dl (8.6-10.3); Creatinine Clr Calc Pharmacy 103.9 ml/min; Est GFR (African American) 94.5 ml/min; Est GFR (Non-African American) 81.5 ml/min; Potassium 4.6 mmol/L (3.5-5.1)
[2023-01-29 16:01] LABS: Appearance Urine Cloudy (Clear); Bacteria Urine Automated Negative (Negative); Blood Urine 3+ (Negative); Color Urine Dark Yellow; Glucose Urine UA Negative (Negative); Ketones Urine 2+ (Negative); Leukocyte Esterase Urine Negative (Negative); Nitrite Urine Negative (Negative); Protein Urine 2+ (Negative); RBC Urine Automated >30 /hpf (0-4); Urobilinogen Urine Positive (Negative)
[2023-01-29 16:02] LABS: Bilirubin Urine 1+ (Negative)
[2023-01-29] MEDS ORDERED: BETAMETHASONE DIP AUG (DIPROLENE) 0.05% CR 15 GM TUBE EXT PRN (16:35)
[2023-01-29] MEDS: ICU Protocol for HYPERglycemia SCH ×2 (16:45→21:21)
[2023-01-29] MEDS: LORazepam 2 MG in SYRINGE 1 ML IV SCH ×2 (16:45→23:40)
[2023-01-29] MEDS ORDERED: PNEUMOCOCCAL VACCINE (PCV20) 20-VAL CONJ-DIP CRM/PF 0.5 ML SYR IM ONE (18:45)
[2023-01-29] MEDS: cloNIDine HCL 0.1 MG TAB PO SCH (21:21)
[2023-01-29] MEDS: lamoTRIgine 100 MG TAB PO SCH (21:22)
[2023-01-29] MEDS: GABAPENTIN 400 MG CAP PO SCH (21:22)
[2023-01-30] MEDS: dexMEDEtomidine 200 MCG/50 ML BAG IV SCH ×3 (02:14→19:32)
[2023-01-30] MEDS: GABAPENTIN 400 MG CAP PO SCH (04:02)
[2023-01-30 04:35] LABS: BUN Creatinine Ratio 21.1 (10-20); Calcium 8.2 mg/dl (8.6-10.3); Creatinine Clr Calc Pharmacy 93.9 ml/min; Est GFR (African American) 94.5 ml/min; Est GFR (Non-African American) 81.5 ml/min; Magnesium 2.7 mg/dl (1.7-2.4); Phosphorus 2.4 mg/dl (2.5-4.9); Potassium 4.6 mmol/L (3.5-5.1)
[2023-01-30 04:50] LABS: Basophils # (auto) 0.01 K/uL (0.00-0.20); Basophils % (auto) 0.3 %; Eosinophils # (auto) 0.04 K/uL (0.00-0.50); Hematocrit (blood only) 31.9 % (42.0-52.0); Hemoglobin 10.9 g/dl (14.0-18.0); Immature Granulocytes # (auto) 0.01 K/uL (0.01-0.20); Immature Granulocytes % (auto) 0.3 %; Lymphocytes # (auto) 0.73 K/uL (1.20-3.40); Lymphocytes % (auto) 18.3 %; Mean Corpuscular Hemoglobin 35.6 pg (25.0-34.0); Mean Corpuscular Hgb Conc 34.2 g/dL (32.0-36.0); Mean Corpuscular Volume 104.2 fL (80.0-100.0); Mean Platelet Volume 11.1 fL (9.4-12.4); Monocytes # (auto) 0.37 K/uL (0.11-0.59); Monocytes % (auto) 9.3 %; Neutrophils # (auto) 2.83 K/uL (1.40-6.50); Neutrophils % (auto) 70.8 %; Platelet Count 32 K/uL (130-400); RDW Coefficient of Variation 15.9 % (11.5-14.5); Red Blood Count 3.06 M/uL (4.70-6.10); White Blood Count 3.99 K/ul (4.8-10.8)
--- NOTE | 2023-01-30 07:49 | Electrocardiogram Report ---
Test Reason : Blood Pressure : / mmHG Vent. Rate : 096 BPM Atrial Rate : 096 BPM P-R Int : 146 ms QRS Dur : 080 ms QT Int : 358 ms P-R-T Axes : 055 016 030 degrees QTc Int : 453 ms Poor data quality, interpretation may be adversely affected Sinus rhythm When compared with ECG of 26-OCT-2022 17:32, Artifact is now present Confirmed by Inocencio Clarke ([id number]) on 01/30/2023 7:48:56 AM Referred By: REFERRED SELF Confirmed By:Inocencio Clarke
[2023-01-30] MEDS: lamoTRIgine 100 MG TAB PO SCH ×2 (08:01→20:12)
[2023-01-30] MEDS: FOLIC ACID 1 MG TAB PO SCH (08:01)
[2023-01-30] MEDS: lisinopril 20 MG TAB PO SCH (08:01)
[2023-01-30] MEDS: ICU Protocol for HYPERglycemia SCH (08:02)
[2023-01-30] MEDS: cloNIDine HCL 0.1 MG TAB PO SCH ×2 (08:02→20:12)
--- NOTE | 2023-01-30 08:07 | Critical Care Progress Note ---
Date of Service January 30, 2023 Assessment & Plan (1) Alcohol withdrawal: (2) Alcohol withdrawal seizure: (3) Alcoholism: (4) Essential hypertension: (5) Thrombocytopenia: (6) Alcoholic liver disease: (7) Delirium tremens: Plan Impression: 47-year-old male with history of alcohol withdrawal and severe DVT admitted with same. Recommendations: 1. Alcohol withdrawal: Continue symptom dosed Ativan as well as gabapentin. Is on a very low-dose of Precedex and will wean to off as tolerated. Continue high-dose thiamine and folate. 2. Mild anemia and thrombocytopenia: Suspect bone marrow suppression due to alcohol use. No evidence of active bleeding. No indication for transfusion. Continue to trend. Will hold DVT prophylaxis given significant thrombocytopenia. 3. Hyponatremia: Stable. Suspect related to chronic alcohol ingestion. If declines further, additional evaluation may be warranted. Remaining electrolytes are stable. 4. Transaminitis: Similar to prior presentations. He is asymptomatic. Continue to trend. 5. History of hypertension. Continue clonidine and lisinopril. 6. History of seizure disorder: Continue baseline dose of Lamictal. No seizure activity noted. If the patient can remain off Precedex, I think he can likely transfer to the telemetry floor out of the intensive care unit. Critical care services will sign off at that point time. Feel free to contact us with questions or concerns Admission and Anticipated Discharge Date Admission Date: January 29, 2023 Subjective Patient seen and examined. EMR reviewed. Discussed on multidisciplinary rounds and with bedside critical care nurse. Patient states he is feeling better. He continues to exhibit tremulousness. He attributes this to poor p.o. intake. He is not having any tactile, visual, or auditory hallucinations. He has demonstrated no hemodynamic instability. He is on a very low-dose of Precedex and receiving gabapentin and Ativan. Review of Systems Review of Systems: All systems reviewed & are unremarkable except as noted in Subjective Physical Exam Constitutional: WD/WN, vitals as above Neck: trachea midline, no thyromegaly Respiratory: normal respiratory effort, lungs clear to auscultation Cardiovascular: RRR, no murmur, no edema Gastrointestinal (Abdomen): normal bowel sounds, soft, nontender, no hepatosplenomegaly Musculoskeletal: Extremities: extremities normal to inspection Skin: no rashes, warm and dry Neurologic: Tremors in the bilateral upper extremities Lymphatic: no cervical lymphadenopathy Results & Data Results & Data Vital Signs (Past 12 Hours) Vital Signs Temp Pulse Pulse Resp BP BP Pulse Ox 01/30/23 07:23 36.6 C 78 14 129/84 98 01/30/23 06:00 128/85 01/30/23 06:00 78 17 97 01/30/23 05:01 122/84 01/30/23 05:01 81 20 97 01/30/23 05:00 73 17 98 01/30/23 04:00 87 15 98 01/30/23 04:00 115/79 01/30/23 04:00 36.6 C 01/30/23 03:00 70 20 97 01/30/23 03:00 106/68 01/30/23 02:00 101/68 01/30/23 02:00 69 17 97 01/30/23 02:00 36.4 C L 01/30/23 01:00 71 17 96 01/30/23 01:00 98/69 L 01/30/23 00:00 102/76 01/30/23 00:00 68 16 97 01/30/23 00:00 71 01/29/23 23:00 71 15 97 01/29/23 23:00 36.6 C 106/77 01/29/23 22:00 116/84 01/29/23 22:00 69 16 116/84 97 01/29/23 21:00 110/84 01/29/23 21:00 71 16 98 01/29/23 20:07 37.3 C 15 96 01/29/23 20:00 01/29/23 20:00 113/85 01/29/23 20:00 71 15 97 O2 Del Method O2 Flow Rate 01/30/23 07:23 Nasal Cannula 2 01/30/23 06:00 01/30/23 06:00 01/30/23 05:01 01/30/23 05:01 01/30/23 05:00 01/30/23 04:00 01/30/23 04:00 01/30/23 04:00 01/30/23 03:00 01/30/23 03:00 01/30/23 02:00 01/30/23 02:00 01/30/23 02:00 01/30/23 01:00 01/30/23 01:00 01/30/23 00:00 01/30/23 00:00 01/30/23 00:00 01/29/23 23:00 01/29/23 23:00 01/29/23 22:00 01/29/23 22:00 01/29/23 21:00 01/29/23 21:00 01/29/23 20:07 Nasal Cannula 2 01/29/23 20:00 Nasal Cannula 2 01/29/23 20:00 01/29/23 20:00 Critical Care Results & Data Vital Signs (Past 12 Hours) Vital Signs Temp Pulse Pulse Resp BP BP Pulse Ox 01/30/23 07:23 36.6 C 78 14 129/84 98 01/30/23 06:00 128/85 01/30/23 06:00 78 17 97 01/30/23 05:01 122/84 01/30/23 05:01 81 20 97 01/30/23 05:00 73 17 98 01/30/23 04:00 87 15 98 01/30/23 04:00 115/79 01/30/23 04:00 36.6 C 01/30/23 03:00 70 20 97 01/30/23 03:00 106/68 01/30/23 02:00 101/68 01/30/23 02:00 69 17 97 01/30/23 02:00 36.4 C L 01/30/23 01:00 71 17 96 01/30/23 01:00 98/69 L 01/30/23 00:00 102/76 01/30/23 00:00 68 16 97 01/30/23 00:00 71 01/29/23 23:00 71 15 97 01/29/23 23:00 36.6 C 106/77 01/29/23 22:00 116/84 01/29/23 22:00 69 16 116/84 97 01/29/23 21:00 110/84 01/29/23 21:00 71 16 98 01/29/23 20:07 37.3 C 15 96 O2 Del Method O2 Flow Rate 01/30/23 07:23 Nasal Cannula 2 01/30/23 06:00 01/30/23 06:00 01/30/23 05:01 01/30/23 05:01 01/30/23 05:00 01/30/23 04:00 01/30/23 04:00 01/30/23 04:00 01/30/23 03:00 01/30/23 03:00 01/30/23 02:00 01/30/23 02:00 01/30/23 02:00 01/30/23 01:00 01/30/23 01:00 01/30/23 00:00 01/30/23 00:00 01/30/23 00:00 01/29/23 23:00 01/29/23 23:00 01/29/23 22:00 01/29/23 22:00 01/29/23 21:00 01/29/23 21:00 01/29/23 20:07 Nasal Cannula 2 Lab & Micro Results (Past 24 Hours) RBC 3.06 M/uL (4.70-6.10) L 01/30/23 WBC 3.99 K/ul (4.8-10.8) L 01/30/23 Hgb 10.9 g/dl (14.0-18.0) L 01/30/23 Hct 31.9 % (42.0-52.0) L 01/30/23 MCV 104.2 fL (80.0-100.0) H 01/30/23 MCH 35.6 pg (25.0-34.0) H 01/30/23 MCHC 34.2 g/dL (32.0-36.0) 01/30/23 RDW Standard Deviation 61.0 fL (36.4-46.3) H 01/30/23 RDW Coefficient of Variation 15.9 % (11.5-14.5) H 01/30/23 Plt Count 32 K/uL (130-400) L 01/30/23 MPV 11.1 fL (9.4-12.4) 01/30/23 Neutrophils (%) (Auto) 70.8 % 01/30/23 Lymphocytes (%) (Auto) 18.3 % 01/30/23 Monocytes # (Auto) 0.37 K/uL (0.11-0.59) 01/30/23 Eosinophils # (Auto) 0.04 K/uL (0.00-0.50) 01/30/23 Immature Granulocyte % (Auto) 0.3 % 01/30/23 Neutrophils # (Auto) 2.83 K/uL (1.40-6.50) 01/30/23 Lymphocytes # (Auto) 0.73 K/uL (1.20-3.40) L 01/30/23 Monocytes # (Auto) 0.37 K/uL (0.11-0.59) 01/30/23 Eosinophils # (Auto) 0.04 K/uL (0.00-0.50) 01/30/23 Basophils # (Auto) 0.01 K/uL (0.00-0.20) 01/30/23 Immature Granulocyte # (Auto) 0.01 K/uL (0.01-0.20) 3 Na 134 mmol/L (136-145) L 01/30/23 K 4.6 mmol/L (3.5-5.1) 01/30/23 Cl 102 mmol/L (98-107) 01/30/23 CO2 21 mmol/L (21-32) 01/30/23 Anion Gap 11 (3-11) 01/30/23 BUN 23 mg/dl (6-23) 01/30/23 Creatinine 1.09 mg/dl (0.6-1.4) 01/30/23 Estimated GFR ( Amer) 94.5 ml/min 01/30/23 Estimated GFR (Non-Af Amer) 81.5 ml/min 01/30/23 BUN/Creatinine Ratio 21.1 (10-20) H 01/30/23 Glu 83 mg/dl (70-99(Fasting)) 01/30/23 Ca 8.2 mg/dl (8.6-10.3) L 01/30/23 Phosphorus Level 2.4 mg/dl (2.5-4.9) L 01/30/23 Total Bilirubin 3.9 mg/dl (0.2-1.0) H 01/29/23 AST 220 U/L (13-39) H 01/29/23 ALT 110 U/L (7-52) H 01/29/23 Alkaline Phosphatase 155 U/L (34-104) H 01/29/23 TP 9.0 gm/dl (6.0-8.3) H 01/29/23 Albumin 4.7 gm/dl (3.4-5.0) 01/29/23 Globulin 4.3 gm/dl (2.5-4.0) H 01/29/23 Albumin/Globulin Ratio 1.1 (0.9-2) 01/29/23 Mg 2.7 mg/dl (1.7-2.4) H 01/30/23 04:00 Calcium Level 8.2 mg/dl (8.6-10.3) L 01/30/23 04:00 Prothromb Time International Ratio 1.1 (0.9-1.1) 01/29/23 12:1 1 Diagnostic Findings (Past 24 Hours) Chest X-Ray 01/29/23 12:52 XR chest 1V portable CLINICAL HISTORY: seizure TECHNIQUE: Single frontal radiograph of the chest was obtained. Comparison: Comparison is made to chest radiograph 10/26/2022 FINDINGS: No lines and tubes are seen. The cardiomediastinal silhouette is normal. The lungs are clear. No evidence of pleural effusion or pneumothorax. IMPRESSION: No acute chest disease. ACT 112: Negative or not required by law. Electronically signed by: Arie Dey M.D. 01/29/2023 1:17 PM I & O Totals 24 Hours 01/29/23 01/30/23 01/31/23 06:59 06:59 06:59 Intake Total 1981.570 / 2101.570 155.767 / 155.767 Output Total 400 / 600 200 / 200 Balance 1581.570 / 1501.570 -44.233 / -44.233 Cumulative 01/29/23 11:58 thru 01/30/23 07:04 Intake Total 2137.337 Output Total 600 Balance 1537.337 RT Ventilator Mngmt (Last Documented) Ventilator Ordered Settings Respiratory Rate 14 01/30/23 07:23 Ventilator - PT Measurements Respiratory Rate 14 Coding Level of Care Code 19634 SUB INP/OBS CARE 2/35MIN Diagnoses Alcohol withdrawal F10.939 Complication of substance-induced condition: with unspecified complication Alcohol withdrawal seizure F10.239; R56.9 Alcoholism F10.20 Essential hypertension I10 Thrombocytopenia D69.6 Alcoholic liver disease K70.9 Delirium tremens F10.231 (1) Alcohol withdrawal Complication of substance-induced condition: with unspecified complication Qualified Code(s): F10.939 - Alcohol use, unspecified with withdrawal, unspecified
[2023-01-30] MEDS: LORazepam 2 MG in SYRINGE 1 ML IV SCH ×2 (08:14→15:32)
[2023-01-30] MEDS: THIAMINE HCL 100 MG TAB PO SCH ×2 (09:01→20:12)
[2023-01-30] MEDS ORDERED: PANTOprazole 40 MG in SYRINGE 0 ML IV SCH (11:00)
[2023-01-30] MEDS: LORazepam 2 MG in SYRINGE 1 ML IV PRN ×3 (13:56→20:15)
[2023-01-30] MEDS ORDERED: GABAPENTIN 400 MG CAP PO SCH (14:00)
--- NOTE | 2023-01-30 14:04 | Hospitalist Progress Note ---
Date of Service January 30, 2023 Assessment & Plan (1) Alcohol withdrawal seizure: Plan: Per family, patient experience 2-minute tonic-clonic seizure in bed the morning of 01/29 He had a second seizure lasting 30 seconds while in the ED on 01/29 Last alcohol drink on Saturday 01/27 Patient reports he drinks 2 jerome jars of flavored liquor daily Hx of severe alcohol withdrawal seizures AWSS protocol for lorazepam Gabapentin 800mg load and taper Continue lamotrigine 150 mg; patient reports he took his lamotrigine the morning on 01/29 Supplemental oxygen as needed to maintain SPO2 > 94% (2) Delirium tremens: Plan: Hx of severe alcohol withdrawal seizures and DTs requiring Precedex and ICU admission in October 2022 No visual/auditory hallucinations currently off precedex (3) Depression: Plan: Patient reports he relapsed with alcohol d/t depression, life stressors Started drinking again 3-4weeks ago No suicidal ideations or thoughts of self-harm Discussed with patient if he would like to see anyone for depression while inpatient; patient reported he would like to think about Case management consult for alcohol cessation and possible rehab placement upon discharge (4) Elevated LFTs: Plan: Total bilirubin 3.9, AST 220, ALT 110, alk phos 155 Patient reports he takes acetaminophen 2 tabs BID for headaches Actetaminophen level in normal range LFTs are normally elevated; last U/S of the liver showed early signs of cirrhosis (5) Essential hypertension: Plan: Continue lisinopril Plan downgrade from icu, all orders and medications reviewed Full code Regular diet Admission and Anticipated Discharge Date Admission Date: January 29, 2023 Subjective pt is awake and oriented, does not recall what happened since was home and had first seizure offers no immediate complaint at this time still a bit foggy from the precedex Physical Exam Physical Exam: Pt is awake and alert cardiac exam is tachycardic lungs are clear Results & Data Results & Data Vital Signs (Past 12 Hours) Vital Signs Temp Pulse Pulse Resp BP BP Pulse Ox 01/30/23 13:38 98.4 F 89 20 148/81 H 95 01/30/23 13:00 92 H 23 93 01/30/23 12:00 100 H 18 94 01/30/23 11:43 98.4 F 94 H 20 129/89 94 01/30/23 11:00 129/89 01/30/23 11:00 83 18 01/30/23 10:00 125/84 01/30/23 10:00 85 19 93 01/30/23 09:00 122/86 01/30/23 09:00 88 25 H 98 01/30/23 08:00 110 H 20 95 01/30/23 08:00 136/98 01/30/23 08:00 01/30/23 08:00 01/30/23 08:00 78 01/30/23 07:23 97.9 F 78 14 129/84 98 01/30/23 07:00 124/84 01/30/23 07:00 76 19 97 01/30/23 06:00 128/85 01/30/23 06:00 78 17 97 01/30/23 05:01 122/84 01/30/23 05:01 81 20 97 01/30/23 05:00 73 17 98 01/30/23 04:00 87 15 98 01/30/23 04:00 115/79 01/30/23 04:00 98 F 01/30/23 03:00 70 20 97 01/30/23 03:00 106/68 01/30/23 02:00 101/68 01/30/23 02:00 69 17 97 01/30/23 02:00 97.5 F L O2 Del Method O2 Flow Rate 01/30/23 13:38 Room Air 01/30/23 13:00 01/30/23 12:00 01/30/23 11:43 Room Air 01/30/23 11:00 01/30/23 11:00 01/30/23 10:00 01/30/23 10:00 01/30/23 09:00 01/30/23 09:00 01/30/23 08:00 01/30/23 08:00 01/30/23 08:00 Nasal Cannula 2 01/30/23 08:00 Nasal Cannula 01/30/23 08:00 01/30/23 07:23 Nasal Cannula 2 01/30/23 07:00 01/30/23 07:00 01/30/23 06:00 01/30/23 06:00 01/30/23 05:01 01/30/23 05:01 01/30/23 05:00 01/30/23 04:00 01/30/23 04:00 01/30/23 04:00 01/30/23 03:00 01/30/23 03:00 01/30/23 02:00 01/30/23 02:00 01/30/23 02:00 Laboratory Results reviewed cbc reviewed prp PG Care Time/CCT Total # of Minutes Spent Total Time Spent with Patient: Total time spent is greater than 50% in coordination of care (as documented) at patient's floor/unit and/or counseling patient: Coding Level of Care Code 07346 SUB INP/OBS CARE 3/50MIN Diagnoses Alcohol withdrawal seizure F10.239; R56.9 Delirium tremens F10.231 Depression F32.A Elevated LFTs R79.89 Essential hypertension I10
[2023-01-30] MEDS ORDERED: GABAPENTIN 1200MG ALCOHOL WITHDRAWAL LOAD PO STA (18:18)
[2023-01-30] MEDS ORDERED: chlordiazePOXIDE HCl 25 MG CAP PO ONE (18:30)
[2023-01-30] MEDS ORDERED: GABAPENTIN 600 MG TAB PO ONE (18:30)
[2023-01-31] MEDS: GABAPENTIN 600 MG TAB PO SCH ×2 (00:41→06:41)
[2023-01-31] MEDS: LORazepam 2 MG in SYRINGE 1 ML IV SCH ×3 (00:41→16:24)
[2023-01-31] MEDS: LORazepam 2 MG in SYRINGE 1 ML IV PRN ×4 (03:33→14:36)
[2023-01-31 04:50] LABS: Basophils # (auto) 0.03 K/uL (0.00-0.20); Basophils % (auto) 0.8 %; Eosinophils # (auto) 0.04 K/uL (0.00-0.50); Eosinophils % (auto) 1.1 %; Hematocrit (blood only) 33.8 % (42.0-52.0); Immature Granulocytes # (auto) 0.01 K/uL (0.01-0.20); Immature Granulocytes % (auto) 0.3 %; Lymphocytes # (auto) 0.77 K/uL (1.20-3.40); Lymphocytes % (auto) 21.8 %; Mean Corpuscular Hemoglobin 35.8 pg (25.0-34.0); Mean Corpuscular Hgb Conc 35.5 g/dL (32.0-36.0); Mean Corpuscular Volume 100.9 fL (80.0-100.0); Mean Platelet Volume 10.6 fL (9.4-12.4); Monocytes # (auto) 0.43 K/uL (0.11-0.59); Monocytes % (auto) 12.2 %; Neutrophils # (auto) 2.25 K/uL (1.40-6.50); Neutrophils % (auto) 63.8 %; Platelet Count 44 K/uL (130-400); RDW Coefficient of Variation 14.9 % (11.5-14.5); RDW Standard Deviation 55.7 fL (36.4-46.3); Red Blood Count 3.35 M/uL (4.70-6.10); White Blood Count 3.53 K/ul (4.8-10.8)
[2023-01-31 05:04] LABS: BUN Creatinine Ratio 19.4 (10-20); Calcium 9.5 mg/dl (8.6-10.3); Creatinine Clr Calc Pharmacy 152.8 ml/min; Est GFR (African American) 134.5 ml/min; Phosphorus 1.7 mg/dl (2.5-4.9); Potassium 3.9 mmol/L (3.5-5.1)
[2023-01-31] MEDS: lamoTRIgine 100 MG TAB PO SCH ×2 (07:42→22:15)
[2023-01-31] MEDS: cloNIDine HCL 0.1 MG TAB PO SCH ×2 (07:44→22:17)
[2023-01-31] MEDS: lisinopril 20 MG TAB PO SCH (07:45)
[2023-01-31] MEDS: THIAMINE HCL 100 MG TAB PO SCH ×2 (07:46→22:18)
[2023-01-31] MEDS: FAMOTIDINE 20 MG TAB PO SCH (07:46)
[2023-01-31] MEDS: FOLIC ACID 1 MG TAB PO SCH (07:47)
[2023-01-31] MEDS ORDERED: SODIUM PHOSPHATE 3 MMOL/1 ML INFUSION IV STA (07:53)
--- NOTE | 2023-01-31 07:55 | Hospitalist Progress Note ---
Date of Service January 31, 2023 Assessment & Plan (1) Alcohol withdrawal seizure: Plan: Per family, patient experience 2-minute tonic-clonic seizure in bed the morning of 01/29 He had a second seizure lasting 30 seconds while in the ED on 01/29 Last alcohol drink on Saturday 01/27 Patient reports he drinks 2 jerome jars of flavored liquor daily Hx of severe alcohol withdrawal seizures AWSS protocol for lorazepam Gabapentin 800mg load and taper scheduled Librium, starting clonidine in pm of 01/31/23 Continue lamotrigine 150 mg; patient reports he took his lamotrigine the morning on 01/29 Supplemental oxygen as needed to maintain SPO2 > 94% (2) Delirium tremens: Plan: Hx of severe alcohol withdrawal seizures and DTs requiring Precedex and ICU admission in October 2022 No visual/auditory hallucinations currently off precedex, is on thiamine replacement, librium and neurontin (3) Depression: Plan: Patient reports he relapsed with alcohol d/t depression, life stressors Started drinking again 3-4weeks ago No suicidal ideations or thoughts of self-harm Discussed with patient if he would like to see anyone for depression while inpatient; patient reported he would like to think about Case management consult for alcohol cessation and possible rehab placement upon discharge (4) Elevated LFTs: Plan: Total bilirubin 3.9, AST 220, ALT 110, alk phos 155 Patient reports he takes acetaminophen 2 tabs BID for headaches Actetaminophen level in normal range LFTs are normally elevated; last U/S of the liver showed early signs of cirrhosis (5) Essential hypertension: Plan: uncontrolled Continue lisinopril, adding clonidine Plan downgrade from icu, all orders and medications reviewed Full code Regular diet Admission and Anticipated Discharge Date Admission Date: January 29, 2023 Subjective pt is awake and now not oriented, 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 now on scheduled Librium, Neurontin taper and starting clonidine Physical Exam Physical Exam: Pt is awake and alert, he is in acute delirium cardiac exam is tachycardic lungs are clear Results & Data Results & Data Vital Signs (Past 12 Hours) Vital Signs Pulse Resp BP Pulse Ox O2 Del Method 01/31/23 07:29 Room Air 01/31/23 07:00 175/117 H 01/31/23 07:00 121 H 22 01/31/23 06:00 170/137 H 01/31/23 06:00 106 H 19 01/31/23 05:02 173/122 H 01/31/23 05:00 149 H 17 01/31/23 04:00 168/109 H 01/31/23 04:00 85 22 01/31/23 03:35 92 H 01/31/23 03:34 164/109 H 01/31/23 02:45 117 H 28 H 83 L 01/31/23 02:07 154/104 H 01/31/23 01:01 140/102 H 01/31/23 00:00 76 97 01/31/23 00:00 78 01/30/23 23:00 143/97 H 01/30/23 23:00 75 18 01/30/23 22:00 149/99 H 01/30/23 22:00 79 19 01/30/23 21:00 142/102 H 01/30/23 21:00 96 H 33 H 01/30/23 20:15 Room Air 01/30/23 20:00 153/105 H 01/30/23 20:00 93 H 21 92 Laboratory Results Reviewed CBC reviewed chemistry ordered phosphate repletion Medications Administered initiated scheduled Librium PG Care Time/CCT Total # of Minutes Spent Total Time Spent with Patient: Total time spent is greater than 50% in coordination of care (as documented) at patient's floor/unit and/or counseling patient: Coding Level of Care Code 18443 SUB INP/OBS CARE 3/50MIN Diagnoses Alcohol withdrawal seizure F10.239; R56.9 Delirium tremens F10.231 Depression F32.A Elevated LFTs R79.89 Essential hypertension I10
[2023-01-31] MEDS ORDERED: chlordiazePOXIDE HCl 25 MG CAP PO SCH ×3 (08:00→18:00)
[2023-01-31] MEDS ORDERED: SODIUM PHOSPHATE 15 MMOL in SODIUM CHLORIDE 0.9% 250 ML IV ONE (08:30)
[2023-01-31] MEDS ORDERED: chlordiazePOXIDE HCl 25 MG CAP PO ONE (10:06)
[2023-01-31] MEDS ORDERED: GABAPENTIN 600 MG TAB PO SCH (14:00)
[2023-01-31] MEDS ORDERED: INFLUENZA VIRUS QUADRIVALENT VACCINE (IIV4) 0.5 ML SYR IM ONE (14:50)
[2023-01-31] MEDS ORDERED: cloNIDine HCL 0.1 MG TAB PO PRN (16:29)
[2023-01-31] MEDS ORDERED: cloNIDine HCL 0.1 MG TAB PO ONE (16:29)
[2023-01-31] MEDS ORDERED: GABAPENTIN 400 MG CAP PO SCH (18:00)
[2023-01-31] MEDS ORDERED: Ativan IV Alcohol Withdrawal--Active Protocol IV PRN (18:31)
[2023-01-31] MEDS ORDERED: LORazepam 3 MG in SYRINGE 1.5 ML IV PRN (18:31)
[2023-01-31] MEDS ORDERED: Ativan PO Alcohol Withdrawal--Active Protocol PO PRN (18:31)
[2023-01-31] MEDS ORDERED: LORazepam 3 MG in SYRINGE 1.5 ML IV STA (18:39)
[2023-01-31] MEDS ORDERED: PHENobarbital PO Alcohol Withdrawal PO STA (18:45)
[2023-01-31] MEDS ORDERED: PHENobarbital sodium 130 MG/ML VIAL IM STA (18:45)
[2023-01-31] MEDS: PHENobarbital sodium 130 MG/ML VIAL IM SCH (22:26)
[2023-02-01] MEDS: PHENobarbital sodium 130 MG/ML VIAL IM SCH (02:41)
[2023-02-01] MEDS: chlordiazePOXIDE HCl 25 MG CAP PO SCH ×3 (02:46→17:40)
[2023-02-01] MEDS: LORazepam 2 MG in SYRINGE 1 ML IV PRN (03:57)
[2023-02-01 07:30] LABS: Basophils # (auto) 0.04 K/uL (0.00-0.20); Basophils % (auto) 0.8 %; Eosinophils # (auto) 0.07 K/uL (0.00-0.50); Eosinophils % (auto) 1.4 %; Hematocrit (blood only) 36.2 % (42.0-52.0); Hemoglobin 12.7 g/dl (14.0-18.0); Immature Granulocytes # (auto) 0.02 K/uL (0.01-0.20); Immature Granulocytes % (auto) 0.4 %; Lymphocytes # (auto) 0.75 K/uL (1.20-3.40); Lymphocytes % (auto) 15.5 %; Mean Corpuscular Hemoglobin 36.4 pg (25.0-34.0); Mean Corpuscular Hgb Conc 35.1 g/dL (32.0-36.0); Mean Corpuscular Volume 103.7 fL (80.0-100.0); Mean Platelet Volume 10.4 fL (9.4-12.4); Monocytes # (auto) 0.54 K/uL (0.11-0.59); Monocytes % (auto) 11.1 %; Neutrophils # (auto) 3.43 K/uL (1.40-6.50); Neutrophils % (auto) 70.8 %; Platelet Count 63 K/uL (130-400); RDW Coefficient of Variation 15.5 % (11.5-14.5); RDW Standard Deviation 59.7 fL (36.4-46.3); Red Blood Count 3.49 M/uL (4.70-6.10); White Blood Count 4.85 K/ul (4.8-10.8)
[2023-02-01 07:44] LABS: BUN Creatinine Ratio 18.1 (10-20); Calcium 9.4 mg/dl (8.6-10.3); Creatinine Clr Calc Pharmacy 123.4 ml/min; Est GFR (African American) 123.2 ml/min; Est GFR (Non-African American) 106.3 ml/min; Potassium 3.9 mmol/L (3.5-5.1)
[2023-02-01] MEDS: lamoTRIgine 100 MG TAB PO SCH ×2 (08:06→20:24)
[2023-02-01] MEDS: cloNIDine HCL 0.1 MG TAB PO SCH ×2 (08:08→20:23)
[2023-02-01] MEDS: FAMOTIDINE 20 MG TAB PO SCH (08:09)
[2023-02-01] MEDS: lisinopril 20 MG TAB PO SCH (08:09)
[2023-02-01] MEDS: FOLIC ACID 1 MG TAB PO SCH (08:09)
[2023-02-01] MEDS: PHENobarbitaL 30 MG TAB PO SCH ×2 (08:14→20:23)
[2023-02-01] MEDS: THIAMINE HCL 100 MG TAB PO SCH ×2 (11:18→20:25)
[2023-02-01] MEDS: PHENobarbital sodium 65 MG/ML VIAL IM PRN ×2 (12:28→22:05)
--- NOTE | 2023-02-01 14:36 | Hospitalist Progress Note ---
Date of Service February 01, 2023 Assessment & Plan (1) Alcohol withdrawal seizure: Plan: Per family, patient experience 2-minute tonic-clonic seizure in bed the morning of 01/29 He had a second seizure lasting 30 seconds while in the ED on 01/29 Last alcohol drink on Saturday 01/27 Patient reports he drinks 2 jerome jars of flavored liquor daily Hx of severe alcohol withdrawal seizures AWSS protocol for lorazepam On phenobarb taper and scheduled Librium, also on clonidine Continue lamotrigine 150 mg; patient reports he took his lamotrigine the morning on 01/29 Supplemental oxygen as needed to maintain SPO2 > 94% (2) Delirium tremens: Plan: Hx of severe alcohol withdrawal seizures and DTs requiring Precedex and ICU admission in October 2022 No visual/auditory hallucinations currently off precedex, is on thiamine replacement, librium and neurontin (3) Depression: Plan: Patient reports he relapsed with alcohol d/t depression, life stressors Started drinking again 3-4weeks ago No suicidal ideations or thoughts of self-harm Discussed with patient if he would like to see anyone for depression while inpatient; patient reported he would like to think about Case management consult for alcohol cessation and possible rehab placement upon discharge (4) Elevated LFTs: Plan: Total bilirubin 3.9, AST 220, ALT 110, alk phos 155 Patient reports he takes acetaminophen 2 tabs BID for headaches Actetaminophen level in normal range LFTs are normally elevated; last U/S of the liver showed early signs of cirrhosis (5) Essential hypertension: Plan: Controlled Continue lisinopril Continue added clonidine Plan downgrade from icu, all orders and medications reviewed Full code Regular diet Admission and Anticipated Discharge Date Admission Date: January 29, 2023 Subjective Patient was sleeping during my encounter. Per sitter, he just fell asleep. I did not wake him up Review of Systems Review of Systems: Unobtainable due to cognitive status Physical Exam Physical Exam: General: Sleeping. Heart: S1, S2/regular rate and rhythm, no murmur rubs or gallops Lungs: Clear to auscultation bilaterally. Normal effort Abdomen: Soft/nontender/nondistended. No hepatosplenomegaly Extremities: No clubbing/cyanosis. No edema Behavior: Unable to assess as the patient was not awake Results & Data Results & Data Vital Signs (Past 12 Hours) Vital Signs Temp Pulse Pulse Pulse Resp BP BP 02/01/23 13:44 106 H 133/90 02/01/23 11:50 36.4 C L 88 18 148/98 H 02/01/23 08:00 02/01/23 08:00 92 H 02/01/23 06:54 36.5 C 93 H 18 02/01/23 05:04 36.6 C 94 H 18 02/01/23 03:39 98 H 22 02/01/23 03:22 36.7 C 98 H 18 02/01/23 02:41 100 H 20 159/99 H BP Pulse Ox O2 Del Method 02/01/23 13:44 02/01/23 11:50 95 Room Air 02/01/23 08:00 Room Air 02/01/23 08:00 02/01/23 06:54 132/85 98 Room Air 02/01/23 05:04 147/96 H 97 Room Air 02/01/23 03:39 02/01/23 03:22 159/95 H 96 Room Air 02/01/23 02:41 Laboratory Results Abnormal lab results 02/01/23 Range/Units 06:56 RBC 3.49 L (4.70-6.10) M/uL Hgb 12.7 L (14.0-18.0) g/dl Hct 36.2 L (42.0-52.0) % MCV 103.7 H (80.0-100.0) fL MCH 36.4 H (25.0-34.0) pg RDW Std Deviation 59.7 H (36.4-46.3) fL RDW Coeff of Amena 15.5 H (11.5-14.5) % Plt Count 63 L (130-400) K/uL Lymph # (Auto) 0.75 L (1.20-3.40) K/uL Anion Gap 12 H (3-11) PG Care Time/CCT Total # of Minutes Spent Total Time Spent with Patient: Total time spent is greater than 50% in coordination of care (as documented) at patient's floor/unit and/or counseling patient: Coding Level of Care Code 15231 SUB INP/OBS CARE 2/35MIN Diagnoses Alcohol withdrawal seizure F10.239; R56.9 Delirium tremens F10.231 Depression F32.A Elevated LFTs R79.89 Essential hypertension I10
[2023-02-01] MEDS ORDERED: GABAPENTIN 600 MG TAB PO SCH (18:00)
[2023-02-01] MEDS: LORazepam 1 MG in SYRINGE 0.5 ML IV PRN (20:54)
[2023-02-02] MEDS: chlordiazePOXIDE HCl 25 MG CAP PO SCH ×3 (01:15→20:20)
[2023-02-02] MEDS: LORazepam 2 MG in SYRINGE 1 ML IV PRN (02:30)
[2023-02-02] MEDS ORDERED: GABAPENTIN 400 MG CAP PO SCH (06:00)
[2023-02-02] MEDS: lisinopril 20 MG TAB PO SCH (08:38)
[2023-02-02] MEDS: lamoTRIgine 100 MG TAB PO SCH ×2 (08:38→20:22)
[2023-02-02] MEDS: PHENobarbitaL 30 MG TAB PO SCH ×2 (08:38→21:40)
[2023-02-02] MEDS: THIAMINE HCL 100 MG TAB PO SCH ×2 (08:38→20:22)
[2023-02-02] MEDS: FOLIC ACID 1 MG TAB PO SCH (08:38)
[2023-02-02] MEDS: FAMOTIDINE 20 MG TAB PO SCH (08:38)
[2023-02-02] MEDS: cloNIDine HCL 0.1 MG TAB PO SCH ×2 (09:49→20:36)
[2023-02-02] MEDS: LORazepam 1 MG in SYRINGE 0.5 ML IV PRN (12:27)
--- NOTE | 2023-02-02 13:45 | Hospitalist Progress Note ---
Date of Service February 02, 2023 Assessment & Plan (1) Alcohol withdrawal seizure: Plan: Per family, patient experience 2-minute tonic-clonic seizure in bed the morning of 01/29 He had a second seizure lasting 30 seconds while in the ED on 01/29 Last alcohol drink on Saturday 01/27 Patient reports he drinks 2 jerome jars of flavored liquor daily Hx of severe alcohol withdrawal seizures AWSS protocol for lorazepam On phenobarb taper and Librium, also on clonidine. Will start to taper Librium. Continue lamotrigine 150 mg; patient reports he took his lamotrigine the morning on 01/29 Supplemental oxygen as needed to maintain SPO2 > 94% (2) Delirium tremens: Plan: Hx of severe alcohol withdrawal seizures and DTs requiring Precedex and ICU admission in October 2022 No visual/auditory hallucinations currently off precedex, is on thiamine replacement, librium and neurontin (3) Depression: Plan: Patient reports he relapsed with alcohol d/t depression, life stressors Started drinking again 3-4weeks ago No suicidal ideations or thoughts of self-harm Discussed with patient if he would like to see anyone for depression while inpatient; patient reported he would like to think about Case management consult for alcohol cessation and possible rehab placement upon discharge (4) Elevated LFTs: Plan: Total bilirubin 3.9, AST 220, ALT 110, alk phos 155 Patient reports he takes acetaminophen 2 tabs BID for headaches Actetaminophen level in normal range LFTs are normally elevated; last U/S of the liver showed early signs of cirrhosis (5) Essential hypertension: Plan: Controlled Continue lisinopril Continue added clonidine Plan Full code Regular diet Admission and Anticipated Discharge Date Admission Date: January 29, 2023 Subjective patient feels better today. Per nurse, he is more awake, alert and composed. Review of Systems Review of Systems: All systems reviewed & are unremarkable except as noted in Subjective Physical Exam Physical Exam: General: Awake, conversant Heart: S1, S2/regular rate and rhythm, no murmur rubs or gallops Lungs: Clear to auscultation bilaterally. Normal effort Abdomen: Soft/nontender/nondistended. No hepatosplenomegaly Extremities: No clubbing/cyanosis. No edema Behavior: appropriate, cooperative Results & Data Results & Data Vital Signs (Past 12 Hours) Vital Signs Temp Pulse Pulse Resp BP Pulse Ox O2 Del Method 02/02/23 12:00 36.9 C 114 H 18 119/80 97 Room Air 02/02/23 10:58 36.4 C L 108 H 18 124/86 98 Room Air 02/02/23 08:00 80 02/02/23 07:39 36.9 C 91 H 18 137/91 97 Room Air PG Care Time/CCT Total # of Minutes Spent Total Time Spent with Patient: Total time spent is greater than 50% in coordination of care (as documented) at patient's floor/unit and/or counseling patient: Coding Level of Care Code 82874 SUB INP/OBS CARE 2/35MIN Diagnoses Alcohol withdrawal seizure F10.239; R56.9 Delirium tremens F10.231 Depression F32.A Elevated LFTs R79.89 Essential hypertension I10
[2023-02-02] MEDS: PHENobarbital sodium 65 MG/ML VIAL IM PRN (20:37)
[2023-02-03] MEDS: LORazepam 1 MG in SYRINGE 0.5 ML IV PRN (05:25)
[2023-02-03] MEDS ORDERED: GABAPENTIN 600 MG TAB PO SCH (06:00)
[2023-02-03] MEDS: FOLIC ACID 1 MG TAB PO SCH (08:15)
[2023-02-03] MEDS: FAMOTIDINE 20 MG TAB PO SCH (08:15)
[2023-02-03] MEDS: chlordiazePOXIDE HCl 25 MG CAP PO SCH (08:15)
[2023-02-03] MEDS: lisinopril 20 MG TAB PO SCH (08:15)
[2023-02-03] MEDS: lamoTRIgine 100 MG TAB PO SCH ×2 (08:16→20:40)
[2023-02-03] MEDS: THIAMINE HCL 100 MG TAB PO SCH ×2 (08:16→20:41)
[2023-02-03] MEDS: cloNIDine HCL 0.1 MG TAB PO SCH ×2 (08:18→20:39)
--- NOTE | 2023-02-03 14:32 | Hospitalist Progress Note ---
Date of Service February 03, 2023 Assessment & Plan (1) Alcohol withdrawal seizure: Plan: Per family, patient experience 2-minute tonic-clonic seizure in bed the morning of 01/29 He had a second seizure lasting 30 seconds while in the ED on 01/29 Last alcohol drink on Saturday 01/27 Patient reports he drinks 2 jerome jars of flavored liquor daily Hx of severe alcohol withdrawal seizures AWSS protocol for lorazepam On phenobarb taper and Librium, also on clonidine. Will Continue to taper Librium. Continue lamotrigine 150 mg; patient reports he took his lamotrigine the morning on 01/29 Supplemental oxygen as needed to maintain SPO2 > 94% (2) Delirium tremens: Plan: Hx of severe alcohol withdrawal seizures and DTs requiring Precedex and ICU admission in October 2022 No visual/auditory hallucinations currently off precedex, is on thiamine replacement, librium and neurontin (3) Depression: Plan: Patient reports he relapsed with alcohol d/t depression, life stressors Started drinking again 3-4weeks ago No suicidal ideations or thoughts of self-harm Discussed with patient if he would like to see anyone for depression while inpatient; patient reported he would like to think about Case management consult for alcohol cessation and possible rehab placement upon discharge (4) Elevated LFTs: Plan: Total bilirubin 3.9, AST 220, ALT 110, alk phos 155 Patient reports he takes acetaminophen 2 tabs BID for headaches Actetaminophen level in normal range LFTs are normally elevated; last U/S of the liver showed early signs of cirrhosis (5) Essential hypertension: Plan: Controlled Continue lisinopril Continue added clonidine Plan Full code Regular diet Admission and Anticipated Discharge Date Admission Date: January 29, 2023 Subjective patient feels well. Denies chest pain or shortness of breath. Accompanied by father and sister in the room. Review of Systems Review of Systems: All systems reviewed & are unremarkable except as noted in Subjective Physical Exam Physical Exam: General: Awake, conversant Heart: S1, S2/regular rate and rhythm, no murmur rubs or gallops Lungs: Clear to auscultation bilaterally. Normal effort Abdomen: Soft/nontender/nondistended. No hepatosplenomegaly Extremities: No clubbing/cyanosis. No edema Behavior: appropriate, cooperative Results & Data Results & Data Vital Signs (Past 12 Hours) Vital Signs Temp Pulse Pulse Resp BP Pulse Ox O2 Del Method 02/03/23 12:07 36.9 C 95 H 18 104/69 96 Room Air 02/03/23 08:00 88 02/03/23 07:26 36.6 C 84 18 150/101 H 97 Room Air 02/03/23 06:41 36.8 C 82 19 157/100 H 94 Room Air 02/03/23 05:14 36.9 C 106 H 20 132/81 97 Room Air 02/03/23 02:57 36.9 C 89 18 119/83 97 Room Air PG Care Time/CCT Total # of Minutes Spent Total Time Spent with Patient: Total time spent is greater than 50% in coordination of care (as documented) at patient's floor/unit and/or counseling patient: Coding Level of Care Code 22281 SUB INP/OBS CARE 2/35MIN Diagnoses Alcohol withdrawal seizure F10.239; R56.9 Delirium tremens F10.231 Depression F32.A Elevated LFTs R79.89 Essential hypertension I10
[2023-02-03] MEDS ORDERED: PHENobarbitaL 30 MG TAB PO SCH (21:00)
[2023-02-04] MEDS ORDERED: chlordiazePOXIDE HCl 25 MG CAP PO SCH (09:00)
[2023-02-04] MEDS: cloNIDine HCL 0.1 MG TAB PO SCH ×2 (09:52→20:01)
[2023-02-04] MEDS: lamoTRIgine 100 MG TAB PO SCH ×2 (09:52→20:02)
[2023-02-04] MEDS: FOLIC ACID 1 MG TAB PO SCH (09:52)
[2023-02-04] MEDS: THIAMINE HCL 100 MG TAB PO SCH ×2 (09:52→20:01)
[2023-02-04] MEDS: FAMOTIDINE 20 MG TAB PO SCH (09:53)
[2023-02-04] MEDS: lisinopril 20 MG TAB PO SCH (09:53)
--- NOTE | 2023-02-04 15:21 | Hospitalist Progress Note ---
Date of Service February 04, 2023 Assessment & Plan (1) Alcohol withdrawal seizure: Plan: Per family, patient experience 2-minute tonic-clonic seizure in bed the morning of 01/29 He had a second seizure lasting 30 seconds while in the ED on 01/29 Last alcohol drink on Saturday 01/27 Patient reports he drinks 2 jerome jars of flavored liquor daily Hx of severe alcohol withdrawal seizures AWSS protocol for lorazepam He has been tapered off of phenobarbital Discontinued Librium as well Continue clonidine Continue lamotrigine (2) Delirium tremens: Plan: Hx of severe alcohol withdrawal seizures and DTs requiring Precedex and ICU admission in October 2022 No visual/auditory hallucinations seems to have resolved (3) Depression: Plan: Patient reports he relapsed with alcohol d/t depression, life stressors Started drinking again 3-4weeks ago No suicidal ideations or thoughts of self-harm Discussed with patient if he would like to see anyone for depression while inpatient; patient reported he would like to think about Case management consult for alcohol cessation and possible rehab placement upon discharge (4) Elevated LFTs: Plan: Total bilirubin 3.9, AST 220, ALT 110, alk phos 155 Patient reports he takes acetaminophen 2 tabs BID for headaches Actetaminophen level in normal range LFTs are normally elevated; last U/S of the liver showed early signs of cirrhosis (5) Essential hypertension: Plan: Controlled Continue lisinopril Continue added clonidine Plan Full code Regular diet Consult PT and OT. likely discharge tomorrow 02/05 Admission and Anticipated Discharge Date Admission Date: January 29, 2023 Subjective patient is feeling better. CIWA scores have been low. Review of Systems Review of Systems: All systems reviewed & are unremarkable except as noted in Subjective Physical Exam Physical Exam: General: Awake, conversant Heart: S1, S2/regular rate and rhythm, no murmur rubs or gallops Lungs: Clear to auscultation bilaterally. Normal effort Abdomen: Soft/nontender/nondistended. No hepatosplenomegaly Extremities: No clubbing/cyanosis. No edema Behavior: appropriate, cooperative Results & Data Results & Data Vital Signs (Past 12 Hours) Vital Signs Temp Pulse Pulse Resp BP Pulse Ox O2 Del Method 02/04/23 11:49 37.0 C 77 17 103/66 98 Room Air 02/04/23 08:00 76 02/04/23 07:47 37.0 C 77 18 119/83 98 Room Air PG Care Time/CCT Total # of Minutes Spent Total Time Spent with Patient: Total time spent is greater than 50% in coordination of care (as documented) at patient's floor/unit and/or counseling patient: Coding Level of Care Code 36010 SUB INP/OBS CARE 2/35MIN Diagnoses Alcohol withdrawal seizure F10.239; R56.9 Delirium tremens F10.231 Depression F32.A Elevated LFTs R79.89 Essential hypertension I10
[2023-02-05] MEDS: cloNIDine HCL 0.1 MG TAB PO SCH (08:05)
[2023-02-05] MEDS: lisinopril 20 MG TAB PO SCH (08:06)
[2023-02-05] MEDS: lamoTRIgine 100 MG TAB PO SCH (08:06)
[2023-02-05] MEDS: FAMOTIDINE 20 MG TAB PO SCH (08:06)
[2023-02-05] MEDS: FOLIC ACID 1 MG TAB PO SCH (08:06)
[2023-02-05] MEDS: THIAMINE HCL 100 MG TAB PO SCH (08:06)
--- NOTE | 2023-02-05 10:07 | Discharge Summary ---
Date of Service February 05, 2023 Admission HPI Per Admitting Provider Georges is a 47-year-old male with PMH of alcohol drawl, DT, seizures, alcoholic liver disease, and essential hypertension. He presented for a 2-minute tonic- clonic seizure in bed this morning 01/29, likely secondary to alcohol withdrawal. Last drink on Saturday 01/27 (2 days before admission). Hx of severe alcohol withdrawal with seizures and DT requiring Precedex and ICU admission in October 2022. Patient had a second tonic-clonic seizure lasting 30 to 45 seconds in the ED just prior to receiving Ativan. He reports that he drinks 2 bottles (july) of fruit flavored liquor per day, with last drink being on Saturday 01/27. His last alcohol withdrawal was in October. He reports that he started drinking and due to depression. He expresses a desire to drink less. Patient reports he took his morning medications, including his Lamictal (no missed doses per patient). He also reports that he takes Tylenol 500 mg 2 pills twice daily as needed for headaches. Patient is tachycardic at 105 BPM, and hypertensive at 148/97 at time of admission ED course: Lorazepam 2 mg IV Phenergan 12.5 mg Zofran 4 mg IV Banana bag (multivitamin, Thiamine, folic acid) x1 NSS 500 mL ROS: Patient endorses sweating. Patient denies pain at present, fever, dizziness, lightheadedness, GALLEGOS, photophobia, visual or auditory hallucinations, chest pain, SOB, abdominal pain, N/V/D, burning with urination, urinary s/s, black/bloody bowel movements, or numbness/tingling going down arms or legs. Social history: Patient denies smoking, vaping, and recreational drug use Admission Exam Per Admitting Provider General: Diaphoretic; lethargic; cooperative; SPO2 93% on 2L NC HEENT: normocephalic, atraumatic; icteric sclera B/L; PERRLA w/ EOMs intact; pa tient wears contacts; moist mucus membrane; vision and hearing grossly intact Neck: supple; no lymphadenopathy; trachea midline Skin: warm, dry without signs of tenting; erythema, splotching along the upper neck; no cyanosis; no rashes, bruising, lesions, or erythema noted CV: chest wall NTP; regular rhythm, tachycardic at 110 bpm; S1/S2 normal; no murmurs/rubs/gallops; pulses intact and symmetric at radial, DP, and PT Lungs: no acute respiratory distress; symmetrical chest wall expansion; clear breath sounds across all lung leyva w/o adventitious sounds; no wheezing ABD: Soft, NTP; BS present; no rebound/guarding; no ascites; no distention MSK: no tics or fasciculations; no edema noted in the LEs b/l; positive asterixis Neuro: A&Ox2, oriented to name, birthday, location; not oriented to month; responds to questioning; sensation intact in the LEs B/L Principal Diagnosis Alcohol withdrawal seizure Delirium tremens Discharge Exam General: Awake, conversant Heart: S1, S2/regular rate and rhythm, no murmur rubs or gallops Lungs: Clear to auscultation bilaterally. Normal effort Abdomen: Soft/nontender/nondistended. No hepatosplenomegaly Extremities: No clubbing/cyanosis. No edema Behavior: appropriate, cooperative Discharge Data Allergies Allergy/AdvReac Type Severity Reaction Status Date / Time No Known Allergies Allergy Mild Verified 05/24/22 13:20 Consultations 01/29/23 13:16 ED Decision to Admit Stat 01/29/23 16:33 Consult Core Checker Routine Hospital Course (1) Alcohol withdrawal seizure: Per family, patient experience 2-minute tonic-clonic seizure in bed the morning of 01/29 He had a second seizure lasting 30 seconds while in the ED on 01/29 Last alcohol drink on Saturday 01/27 Patient reports he drinks 2 jerome jars of flavored liquor daily Hx of severe alcohol withdrawal seizures AWSS protocol for lorazepam He has been tapered off of phenobarbital Discontinued Librium as well Continue clonidine Continue lamotrigine (2) Delirium tremens: Hx of severe alcohol withdrawal seizures and DTs requiring Precedex and ICU admission in October 2022 No visual/auditory hallucinations Resolved (3) Depression: Patient reports he relapsed with alcohol d/t depression, life stressors Started drinking again 3-4weeks ago No suicidal ideations or thoughts of self-harm (4) Elevated LFTs: Total bilirubin 3.9, AST 220, ALT 110, alk phos 155 Patient reports he takes acetaminophen 2 tabs BID for headaches Actetaminophen level in normal range LFTs are normally elevated; last U/S of the liver showed early signs of cirrhosis (5) Essential hypertension: Controlled Continue lisinopril Continue added clonidine Plan Full code Regular diet PT/OT cleared the patient for discharge to home. Discharge today Total Time Total Time Spent Total Time Spent (In Minutes): 35 Discharge Plan Discharge Items Patient Disposition: Home - Self-Care Reason For Visit: ALCOHOL WITHDRAWL SEIZURES; HX OF DT REQUIRING PRE Discharge Diagnosis: Alcohol withdrawal seizure Delirium tremens Condition on Discharge: Serious Activity: Resume your previous activity Non-emergency contact: Primary Care Provider Call non-emergency contact if: you have any medication questions and your symptoms worsen Follow-up/Referrals: Luis Antonio Guevara [Primary Care Provider] - (Please call your PCP to make a follow up appointment) Diet: Regular Addtl Attending Provider Instructions: Advised to follow-up with PCP in 1 week Pending Studies at Discharge: No Stand-Alone Forms: My [facility] Medications and DC Order Prescriptions: Continued lamotrigine [Lamictal] 150 mg tablet 150 mg PO BID Rx Instructions: Taken @ 0730 loratadine [Claritin] 10 mg tablet 10 mg PO DAILY PRN (Reason: allergies) fluocinonide 0.05 % cream 1 applic topical BID PRN (Reason: Rash) Rx Instructions: Apply to areas of the trunk and extremities twice daily x 2 weeks as directed. clonidine HCl 0.1 mg tablet 0.2 mg PO BID lisinopril 20 mg tablet 20 mg PO DAILY folic acid 1 mg tablet 1 mg PO DAILY Discharge Orders: Discharge Order (Routine); Ordered 02/05/23 Ordered By: Mayank Mendez Admission Data Admit Date/Time: 01/29/23 14:48 Attending Provider: Mayank Mendez Admit Provider: Colten Brasher Primary Care Provider: Luis Antonio Guevara Other Providers: Colten Brasher; Fazal Daly Other Interventions: Discharge Summary Assessment (RN) Last Done: 02/05/23 10:23 Coding Level of Care Code 98400 INP/OBS DISCH >30 MIN Diagnoses Alcohol withdrawal seizure F10.239; R56.9 Delirium tremens F10.231 Depression F32.A Elevated LFTs R79.89 Essential hypertension I10
== END 2023-02-05 11:50 | disposition home or self-care (01) | DRG 897 ==
LOC: ED 11:58 → SUATTDRO 14:48 → 1E 14:48 → 2S 01-31 15:46

== ENCOUNTER 2023-06-11 13:04 | Inpatient (IN) ==
[2023-06-11 14:28] LABS: Basophils # (auto) 0.04 K/uL (0.00-0.20); Basophils % (auto) 1.1 %; Eosinophils # (auto) 0.04 K/uL (0.00-0.50); Eosinophils % (auto) 1.1 %; Hematocrit (blood only) 43.3 % (42.0-52.0); Hemoglobin 15.4 g/dl (14.0-18.0); Lymphocytes # (auto) 1.61 K/uL (1.20-3.40); Lymphocytes % (auto) 43.4 %; Mean Corpuscular Hemoglobin 33.6 pg (25.0-34.0); Mean Corpuscular Hgb Conc 35.6 g/dL (32.0-36.0); Mean Corpuscular Volume 94.5 fL (80.0-100.0); Mean Platelet Volume 10.4 fL (9.4-12.4); Monocytes # (auto) 0.33 K/uL (0.11-0.59); Monocytes % (auto) 8.9 %; Neutrophils # (auto) 1.69 K/uL (1.40-6.50); Neutrophils % (auto) 45.5 %; Platelet Count 89 K/uL (130-400); RDW Coefficient of Variation 15.2 % (11.5-14.5); RDW Standard Deviation 52.6 fL (36.4-46.3); Red Blood Count 4.58 M/uL (4.70-6.10); White Blood Count 3.71 K/ul (4.8-10.8)
[2023-06-11] MEDS: SODIUM CHLORIDE 0.9% 1,000 ML IV SCH (14:32)
[2023-06-11] MEDS: MULTI-VITAMIN INFUSION 10 ML, THIAMINE HCL 100 MG, FOLIC ACID 1 MG in SODIUM CHLORIDE 0... IV ONE (14:35)
[2023-06-11 14:49] LABS: Prothrombin Time 11.4 Seconds (9.0-12.0)
--- NOTE | 2023-06-11 14:52 | XRay Report ---
XR chest 1V portable HISTORY: 48 years-old Male seizure acute seizure-like activity COMPARISON: 01/29/2023 TECHNIQUE: AP view of the chest FINDINGS: Cardiomediastinal and hilar silhouettes are within normal limits. No pneumothorax, pleural effusion o r airspace consolidation. Bones appear grossly intact. IMPRESSION: No acute process. ACT 112: Negative or not required by law. The above report was generated using voice recognition software. It may contain grammatical, syntax o r spelling errors. Electronically signed by: Refugio Palacios M.D. 06/11/2023 2:50 PM
--- NOTE | 2023-06-11 14:55 | CT Scan Report ---
CT head/brain wo con CLINICAL HISTORY: 48 years-old Male with seizure, headache. Acute seizure with headache TECHNIQUE: Multiple axial CT images of the head were obtained without contrast. A dose lowering tech nique was utilized adhering to the principles of ALARA. CT DOSE: 625.8 mGy.cm COMPARISON: 10/26/2022 FINDINGS: No acute intracranial hemorrhage, midline shift, intracranial mass, hydrocephalus, territorial ischem ia or abnormal extra-axial collection. The calvarium is intact. The paranasal sinuses, mastoid air cells, and middle ear cavities are clear . IMPRESSION: No acute intracranial abnormality. ACT 112: Negative or not required by law. The above report was generated using voice recognition software. It may contain grammatical, syntax o r spelling errors. Electronically signed by: Refugio Palacios M.D. 06/11/2023 2:54 PM
[2023-06-11 15:22] LABS: Bilirubin,Total 1.3 mg/dl (0.2-1.0); Calcium 9.5 mg/dl (8.6-10.3); Potassium 3.7 mmol/L (3.5-5.1)
[2023-06-11 15:28] LABS: Albumin Globulin Ratio 1.2 (0.9-2); BUN Creatinine Ratio 11.9 (10-20); Creatinine Clr Calc Pharmacy 131.4 ml/min; Est GFR (African American) 121.7 ml/min; Globulin 4.2 gm/dl (2.5-4.0); Total Protein 9.2 gm/dl (6.0-8.3)
[2023-06-11] MEDS: LORazepam 1 MG/1 ML SYR ED Inj Use IV STA ×2 (15:30→23:28)
[2023-06-11 15:33] LABS: Troponin I High Sensitivity 7.3 pg/ml (0-20)
[2023-06-11] MEDS: LORazepam 1 MG/1 ML SYR ED Inj Use ONE (15:39)
[2023-06-11 15:42] LABS: Thyroid Stimulating Hormone 0.943 uIu/ml (0.300-4.500)
[2023-06-11 15:45] LABS: Adenovirus PCR Not Detected (NotDetected); Bordetella parapertussis PCR Not Detected (NotDetected); Bordetella pertussis PCR Not Detected (NotDetected); Chlamydia pneumoniae PCR Not Detected (NotDetected); Coronavirus 229E PCR Not Detected (NotDetected); Coronavirus CoV-2 (COVID19)PCR Not Detected (NotDetected); Coronavirus HKU1 PCR Not Detected (NotDetected); Coronavirus NL63 PCR Not Detected (NotDetected); Coronavirus OC43PCR Not Detected (NotDetected); Human Metapneumovirus PCR Not Detected (NotDetected); Influenza A PCR Not Detected (NotDetected); Influenza B PCR Not Detected (NotDetected); Mycoplasma pneumoniae PCR Not Detected (NotDetected); Parainfluenza Virus 1 PCR Not Detected (NotDetected); Parainfluenza Virus 2 PCR Not Detected (NotDetected); Parainfluenza Virus 3 PCR Not Detected (NotDetected); Parainfluenza Virus 4 PCR Not Detected (NotDetected); Respiratory Syncytial VirusPCR Not Detected (NotDetected); Rhinovirus/Enterovirus PCR Not Detected (NotDetected)
--- NOTE | 2023-06-11 16:06 | Emergency Department Note ---
Impression & Plan Alcohol abuse, Seizure, Alcohol intoxication, Abnormal LFTs, Thrombocytopenia ED Provider Note ED Provider Note NAME: WILEY CHRISTIANSON AGE:48 SEX: Male : 1975 ARRIVES VIA: Private vehicle INFORMANT: Patient ED PROVIDER(s): Maribell Loredo DO CHIEF COMPLAINT: Seizure HPI: This is a 48-year-old male presents emergency department due to family concern for seizure. He does have a history of epilepsy diagnosed at age 15 and does take seizure medication daily. Call they states he also has a history of alcohol abuse. He states his last drink was 1 week ago. He states he has been fine throughout the week with no seizure-like activity on the only mild shaking/tremors. He states he did feel tired for several days but no fevers, chills, vomiting, palpitations, or paresthesias. He denies any other recreational drug use. Family states he did have a brief seizure at home. They were concerned as he had some twitching and tremors here and seem more somnolent again and also complained of a headache and they were concerned he may have recurrent seizures. He states he has not missed or skipped any doses of his seizure medication. He has had seizures related to alcohol withdrawal previously and has previously been admitted for alcohol withdrawal. PAST MEDICAL HISTORY:See Below PAST SURGICAL HISTORY:See Below FAMILY HISTORY:See Below SOCIAL HISTORY:See Below HOME MEDICATIONS:See Below ALLERGIES:See Below VITALS:See Below PHYSICAL EXAMINATION: GENERAL: alert, well appearing, well nourished, no distress, non-toxic EYE EXAM: normal conjunctiva, PERRL and EOM's grossly intact OROPHARYNX: no exudate, no erythema, lips, buccal mucosa, and tongue normal and mucous membranes are dry NECK: supple, no nuchal rigidity, no adenopathy, non-tender LUNGS: Clear to auscultation. Normal chest wall mechanics, no w/r/r HEART: no murmurs, S1 normal and S2 normal ABDOMEN: abdomen soft, non-tender, normo-active bowel sounds, no masses, no rebound or guarding. BACK: Back is symmetrical on inspection and there is no deformity, no midline tenderness, no CVA tenderness. SKIN: no rashes, petechiae, orbruising UPPER EXTREMITIES: upper extremities are grossly normal. FROM, nml pulses b/l. LOWER EXTREMITIES: No pitting edema. FROM, nml pulses b/l. NEURO EXAM: Normal sensorium, cranial nerves II-XII grossly intact, normal speech, no facial droop,nogross weakness of arms, no gross weakness of legs. Gross sensation intact. No ataxia. Vital Signs: reviewed and remarkable Differential Diagnosis: infection, hypoglycemia, electrolyte abnormalities, cardiac sources, ICH, mass, trauma,toxidrome, CVA, as well as others were entertained. MEDICAL DECISION MAKING: This is a 48-year-old male presents emergency department due to concern for possible seizure and possible alcohol withdrawal symptoms. Patient stated he had not had a drink in 1 week on arrival. Family noticed slight twitching while in the waiting room area and were concerned for possible evolving seizure. Labs drawn and sent, IV established, EKG and chest x-ray formed bedside interpreted by me and patient monitored on telemetry. He was mildly tachycardic but not hypotensive. He was started on IV fluids, IV banana bag, and sent for CT head additionally due to complaints of a headache. No evidence of trauma on my exam. Patient did have what appeared to be myoclonic jerking when he fell asleep and family was concerned as they have seen this before prior to seizures so the patient was given IV Ativan. As labs returned patient was noted to have significant alcohol intoxication. When I discussed this with the patient again at bedside he stated "I drink last night". A lengthy family discussion at bedside ensued as his sister and father were very upset. Patient stated he did not wish to pursue any rehab at this time. I discussed with family that he was too intoxicated at this time to refuse care and that if he wished to leave he would need someone to take responsibility for him. Family was unwilling to take responsibility for him in this condition given the significant intoxication and stated they were going home but would return if he needed to be picked up. Patient monitored over several hours to watch for evolving symptoms of alcohol withdrawal that would warrant additional inpatient management. Patient noted to have thrombocytopenia although no significant coagulopathy. Abnormal LFTs likely secondary to ongoing alcohol abuse. Patient was noted to have an anion gap, I suspect this is related to alcoholic ketoacidosis and dehydration. ER Treatment Provided: See below Diagnostics Interpreted By Me: -ECG: Normal sinus at 74, normal axis, normal intervals, no acute ST/T wave changes -Cardiac Monitoring: An order was placed for continuous cardiac monitoring. The monitor shows a rate of [] with [] rhythm. -Laboratory studies: As stated above and show below. -Imaging studies: X-ray Chest: A single view study of the chest was reviewed and was negative for cardiomegaly, focal infiltrate, effusion, pulmonary edema, or wide mediastinum. Triage Nursing Note Reviewed Prior/Outside Records Reviewed -prior discharge summary reviewed Past Med/Surg History Medical History Depression Constipation Physical deconditioning Delirium tremens Metabolic encephalopathy Alcoholism Essential hypertension Seizures (~11/16/21) Surgical History No pertinent past surgical history Family History Father Skin cancer of face Denies family history of Alcoholism Seizure disorder Social History Smoking Status: Current every day smoker Tobacco Type: Cigarettes Cigarettes Per Day: 1/2 pack per day; Second Hand Exposure: No; Do You Dip or Chew Tobacco: No; Hx Alcohol Use: Yes Alcohol type: wine Alcohol type Comment: DAILY consumption, mixture of bottle of wine, bottle of liquor, and/or beer Hx Substance Use: No Preferred Language: Albanian Communication Ability: Effective Electrician Bus Required: No Beliefs That Will Affect Care: None marital status: Single marital status details: x 2 Current Living Situation: Parent Current Living Situation Comment: lives w/ father in [place] current occupational status: 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[employer] How many Children do You have: 0 Feels Safe at Home: Yes Assistive Devices: None Allergies Allergies Allergy/AdvReac Type Severity Reaction Status Date / Time No Known Allergies Allergy Mild Verified 05/24/22 13:20 Home Meds Home Medications Medication Instructions Recorded Confirmed lamotrigine 150 mg tablet 150 mg PO BID 01/13/21 06/11/23 (Lamictal) clonidine HCl 0.1 mg tablet 0.2 mg PO BID 11/11/21 06/11/23 folic acid 1 mg tablet 1 mg PO DAILY 11/11/21 06/11/23 lisinopril 20 mg tablet 20 mg PO DAILY 11/11/21 06/11/23 fluocinonide 0.05 % topical cream 1 applic topical BID PRN Rash 01/29/23 06/11/23 loratadine 10 mg tablet (Claritin) 10 mg PO DAILY PRN allergies 01/29/23 06/11/23 multivitamin 1 tab PO DAILY 06/11/23 06/11/23 Results & Data (ED) Vital Signs Vital Signs - 24 hr 06/11/23 20:45 06/11/23 20:45 06/11/23 21:00 Pulse Rate 64 65 Pulse Rate [Finger] Pulse Rate from SpO2 Sensor 65 64 Respiratory Rate 7 L 14 Blood Pressure 160/107 H Blood Pressure [Right Arm] Blood Pressure Mean 134 Blood Pressure Mean [Right Arm] Pulse Oximetry 100 100 Oxygen Delivery Method 06/11/23 21:00 06/11/23 21:26 06/11/23 21:30 Pulse Rate 79 71 Pulse Rate [Finger] Pulse Rate from SpO2 Sensor 72 Respiratory Rate 17 Blood Pressure 147/102 H Blood Pressure [Right Arm] Blood Pressure Mean 125 Blood Pressure Mean [Right Arm] Pulse Oximetry 89 L Oxygen Delivery Method 06/11/23 22:42 Pulse Rate Pulse Rate [Finger] 79 Pulse Rate from SpO2 Sensor Respiratory Rate 22 Blood Pressure Blood Pressure [Right Arm] 146/98 H Blood Pressure Mean Blood Pressure Mean [Right Arm] 114 Pulse Oximetry 94 Oxygen Delivery Method Room Air Laboratory Data 06/12/23 07:21 06/12/23 07:21 Lab Results 06/11/23 06/11/23 06/11/23 Range/Units 13:30 14:39 21:15 WBC 3.71 L (4.8-10.8) K/ul RBC 4.58 L (4.70-6.10) M/uL Hgb 15.4 (14.0-18.0) g/dl Hct 43.3 (42.0-52.0) % MCV 94.5 (80.0-100.0) fL MCH 33.6 (25.0-34.0) pg MCHC 35.6 (32.0-36.0) g/dL RDW Std Deviation 52.6 H (36.4-46.3) fL RDW Coeff of Amena 15.2 H (11.5-14.5) % Plt Count 89 L (130-400) K/uL MPV 10.4 (9.4-12.4) fL Immature Gran % (Auto) 0.0 % Neut % (Auto) 45.5 % Lymph % (Auto) 43.4 % [place] % (Auto) 8.9 % Eos % (Auto) 1.1 % Baso % (Auto) 1.1 % Neut # (Auto) 1.69 (1.40-6.50) K/uL Lymph # (Auto) 1.61 (1.20-3.40) K/uL [place] # (Auto) 0.33 (0.11-0.59) K/uL Eos # (Auto) 0.04 (0.00-0.50) K/uL Baso # (Auto) 0.04 (0.00-0.20) K/uL Immature Gran # (Auto) 0.00 L (0.01-0.20) K/uL PT 11.4 (9.0-12.0) Seconds INR 1.0 (0.9-1.1) Sodium 138 (136-145) mmol/L Potassium 3.7 (3.5-5.1) mmol/L Chloride 101 (98-107) mmol/L Carbon Dioxide 23 (21-32) mmol/L Anion Gap 14 H (3-11) BUN 10 (6-23) mg/dl Creatinine 0.84 (0.6-1.4) mg/dl Est Cr Clr Drug Dosing 131.4 ml/min Est GFR ( Amer) 121.7 ml/min Est GFR (Non-Af Amer) 105.0 ml/min BUN/Creatinine Ratio 11.9 (10-20) Glucose 105 H (70-99(Fasting)) mg/dl Calcium 9.5 (8.6-10.3) mg/dl Magnesium 2.0 (1.7-2.4) mg/dl Total Bilirubin 1.3 H (0.2-1.0) mg/dl AST 232 H (13-39) U/L ALT 113 H (7-52) U/L Alkaline Phosphatase 156 H (34-104) U/L Troponin I High Sens 7.3 (0-20) pg/ml Total Protein 9.2 H (6.0-8.3) gm/dl Albumin 5.0 (3.4-5.0) gm/dl Globulin 4.2 H (2.5-4.0) gm/dl Albumin/Globulin Ratio 1.2 (0.9-2) Lipase 56 (11-82) U/L TSH 0.943 (0.300-4.500) uIu/ml Urine Color Dark Yellow Urine Appearance Clear (Clear) Urine pH 5.5 (4.5-7.5) Ur Specific [place] 1.020 (1.000-1.030) Urine Protein 2+ H (Negative) Urine Glucose (UA) Negative (Negative) Urine Ketones Trace H (Negative) Urine Blood 2+ H (Negative) Urine Nitrite Negative (Negative) Urine Bilirubin Negative (Negative) Urine Urobilinogen Negative (Negative) Ur Leukocyte Esterase Negative (Negative) Urine WBC (Auto) 1-5 (0-5) /hpf Urine RBC (Auto) 10-30 H (0-4) /hpf U Hyaline Cast (Auto) 5-10 H (0-5) /lpf U Epithel Cells (Auto) 10-20 H (0-5) /lpf Urine Bacteria (Auto) Negative (Negative) Urine Opiates Screen Neg (Neg) Ur Methadone, Qual Neg (Neg) Urine Barbiturates Neg (Neg) Ur Phencyclidine (PCP) Neg (Neg) U Amphetamin/Meth Scrn Neg (Neg) MDMA (Ecstasy) Screen Neg (Neg) U Benzodiazepines Scrn Neg (Neg) Ur Cocaine Metabolite Neg (Neg) U Marijuana (THC) Screen Neg (Neg) Ethyl Alcohol mg/dL 459.0 H (<10.0) mg/dl Adenovirus (PCR) Not Detected (NotDetected) B. pertussis DNA (PCR) Not Detected (NotDetected) B.parapertussis DNA PCR Not Detected (NotDetected) C. pneumoniae DNA (PCR) Not Detected (NotDetected) Coronavirus OC43 (PCR) Not Detected (NotDetected) Coronavirus HKU1 (PCR) Not Detected (NotDetected) Coronavirus 229E (PCR) Not Detected (NotDetected) SARS-CoV-2 (PCR) Not Detected (NotDetected) Coronavirus NL63 (PCR) Not Detected (NotDetected) Human Metapneumovir PCR Not Detected (NotDetected) Influenza Type A (PCR) Not Detected (NotDetected) Influenza Type B (PCR) Not Detected (NotDetected) M. pneumoniae (PCR) Not Detected (NotDetected) Parainfluenza 1 (PCR) Not Detected (NotDetected) Parainfluenza 2 (PCR) Not Detected (NotDetected) Parainfluenza 3 (PCR) Not Detected (NotDetected) Parainfluenza 4 (PCR) Not Detected (NotDetected) RSV (PCR) Not Detected (NotDetected) Entero/Rhino (PCR) Not Detected (NotDetected) Administered Medications Chlordiazepoxide HCl (Chlordiazepoxide Hcl 10 Mg Cap) 10 mg PO TID [facility] Stop: 07/12/23 08:59 Last Admin: 06/12/23 20:06 Dose: 10 mg Documented By: Admin: 06/12/23 13:52 Dose: 10 mg Documented By: Admin: 06/12/23 10:22 Dose: 10 mg Documented By: JOANNA Clonidine HCl (Clonidine Hcl 0.1 Mg Tab) 0.2 mg PO BID [facility] Stop: 07/12/23 01:35 Last Admin: 06/12/23 20:00 Dose: 0.2 mg Documented By: Admin: 06/12/23 09:49 Dose: 0.2 mg Documented By: Admin: 06/12/23 02:25 Dose: 0.2 mg Documented By: MYLES Folic Acid (Folic Acid 1 Mg Tab) 1 mg PO DAILY [facility] Stop: 07/12/23 08:59 Last Admin: 06/12/23 09:50 Dose: 1 mg Documented By: JOANNA Lorazepam 1 mg/ Syringe 1 mls @ 2 mls/min IV UD PRN; Protocol PRN Reason: EtOH Withdrawal AWSS Score 6,7 Stop: 07/12/23 01:35 Last Admin: 06/12/23 20:06 Dose: 2 mls/min Documented By: Admin: 06/12/23 13:12 Dose: 2 mls/min Documented By: Admin: 06/12/23 10:22 Dose: 2 mls/min Documented By: Admin: 06/12/23 07:39 Dose: 2 mls/min Documented By: CHADWICK Lorazepam 2 mg/ Syringe 2 mls @ 2 mls/min IV UD PRN; Protocol PRN Reason: EtOH Withdrawal AWSS Score 8,9 Stop: 07/12/23 01:35 Last Admin: 06/12/23 02:47 Dose: 2 mls/min Documented By: MYLES Lamotrigine (Lamotrigine 100 Mg Tab) 150 mg PO BID [facility] Stop: 07/12/23 01:44 Last Admin: 06/12/23 20:05 Dose: 150 mg Documented By: Admin: 06/12/23 09:49 Dose: 150 mg Documented By: Admin: 06/12/23 02:26 Dose: 150 mg Documented By: MYLES Lisinopril (Lisinopril 20 Mg Tab) 20 mg PO DAILY [facility] Stop: 07/12/23 08:59 Last Admin: 06/12/23 09:50 Dose: 20 mg Documented By: JOANNA Multivitamins (Multivitamin Tab) 1 tab PO DAILY [facility] Stop: 07/12/23 08:59 Last Admin: 06/12/23 09:49 Dose: 1 tab Documented By: JOANNA Thiamine HCl (Thiamine Hcl 100 Mg Tab) 100 mg PO QAM [facility] Stop: 07/12/23 08:59 Last Admin: 06/12/23 09:50 Dose: 100 mg Documented By: JOANNA Discontinued Medications Gabapentin (Gabapentin 100 Mg Cap) 100 mg PO Q6H [facility] Stop: 06/12/23 12:16 Last Admin: 06/12/23 07:50 Dose: Not Given Documented By: CHADWICK Gabapentin (Gabapentin 600 Mg Tab) 600 mg PO NOW ONE Stop: 06/12/23 01:37 Last Admin: 06/12/23 02:30 Dose: 600 mg Documented By: MYLES Sodium Chloride (Nss) 1,000 mls @ 125 mls/hr IV .Q8H [facility] Stop: 07/11/23 13:59 Last Infusion: 06/12/23 00:32 Dose: Infused Documented By: Admin: 06/11/23 22:47 Dose: 125 mls/hr Documented By: Infusion: 06/11/23 22:47 Dose: Infused Documented By: Admin: 06/11/23 14:32 Dose: 125 mls/hr Documented By: EUSEBIO Multivitamins 10 ml/ Thiamine HCl 100 mg/ Folic Acid 1 mg/Sodium Chloride 1,011.2 mls @ 200 mls/hr IV .Q5H4M ONE Stop: 06/11/23 18:52 Last Infusion: 06/11/23 20:03 Dose: Infused Documented By: Admin: 06/11/23 14:35 Dose: 200 mls/hr Documented By: EUSEBIO Potassium Chloride/Sodium Chloride (Normal Saline W/20 Meq Kcl) 20 meq in 1,000 mls @ 100 mls/hr IV .Q10H STA; Protocol Stop: 06/12/23 10:06 Last Infusion: 06/12/23 10:48 Dose: Infused Documented By: Admin: 06/12/23 00:31 Dose: 100 mls/hr Documented By: BRIAN Lorazepam (Lorazepam 1 Mg/1 Ml Syr Ed Inj Use) Confirm Administered Dose 1 mg .ROUTE .STK-MED ONE Stop: 06/11/23 15:07 Last Admin: 06/11/23 15:39 Dose: Not Given Documented By: EUSEBIO Lorazepam (Lorazepam 1 Mg/1 Ml Syr Ed Inj Use) 1 mg IV ONE STA Stop: 06/11/23 15:26 Last Admin: 06/11/23 15:30 Dose: 1 mg Documented By: SONAL Lorazepam (Lorazepam 1 Mg/1 Ml Syr Ed Inj Use) 1 mg IV ONE STA Stop: 06/11/23 23:23 Last Admin: 06/11/23 23:28 Dose: 1 mg Documented By: BRIAN Metoprolol Tartrate (Metoprolol Tartrate 1 Mg/Ml Vial) 5 mg IV NOW STA Stop: 06/12/23 04:37 Last Admin: 06/12/23 05:20 Dose: 5 mg Documented By: WILFREDO Ondansetron HCl (Ondansetron Inj 2 Mg/Ml 2 Ml Vial) 4 mg IV NOW STA Stop: 06/11/23 23:23 Last Admin: 06/11/23 23:27 Dose: 4 mg Documented By: BRIAN Imaging Data Radiologist's Impression: Chest X-Ray 06/11/23 13:49 XR chest 1V portable HISTORY: 48 years-old Male seizure acute seizure-like activity COMPARISON: 01/29/2023 TECHNIQUE: AP view of the chest FINDINGS: Cardiomediastinal and hilar silhouettes are within normal limits. No pneumothorax, pleural effusion or airspace consolidation. Bones appear grossly intact. IMPRESSION: No acute process. ACT 112: Negative or not required by law. The above report was generated using voice recognition software. It may contain grammatical, syntax or spelling errors. Electronically signed by: Refugio Palacios M.D. 06/11/2023 2:[address] 06/11/23 13:49 CT head/brain wo con CLINICAL HISTORY: 48 years-old Male with seizure, headache. Acute seizure with headache TECHNIQUE: Multiple axial CT images of the head were obtained without contrast. A dose lowering technique was utilized adhering to the principles of ALARA. CT DOSE: 625.8 mGy.cm COMPARISON: 10/26/2022 FINDINGS: No acute intracranial hemorrhage, midline shift, intracranial mass, hydrocephalus, territorial ischemia or abnormal extra-axial collection. The calvarium is intact. The paranasal sinuses, mastoid air cells, and middle ear cavities are clear. IMPRESSION: No acute intracranial abnormality. ACT 112: Negative or not required by law. The above report was generated using voice recognition software. It may contain grammatical, syntax or spelling errors. Electronically signed by: Refugio Palacios M.D. 06/11/2023 2:54 PM Discharge Plan Visit Data Chief Complaint: Seizure Stated Complaint: SEIZURE THIS MORNING, ED Provider: Maribell Loredo Discharge Problem: Alcohol abuse, Seizure, Alcohol intoxication, Abnormal LFTs, Thrombocytopenia Patient Disposition: Admitted As Inpatient Discharge Instructions Interventions: ED Discharge Assessment Last Done: 06/12/23 01:37
[2023-06-11 21:36] LABS: Appearance Urine Clear (Clear); Bacteria Urine Automated Negative (Negative); Bilirubin Urine Negative (Negative); Blood Urine 2+ (Negative); Color Urine Dark Yellow; Glucose Urine UA Negative (Negative); Ketones Urine Trace (Negative); Leukocyte Esterase Urine Negative (Negative); Nitrite Urine Negative (Negative); Protein Urine 2+ (Negative); Urobilinogen Urine Negative (Negative); pH Urine 5.5 (4.5-7.5)
[2023-06-11 22:10] LABS: Amphetamines+Metham, Urine Neg (Neg); Barbiturates, Urine Neg (Neg); Benzodiazepine, Urine Neg (Neg); Cocaine, Urine Neg (Neg); MDMA (Ecstacy), Urine Neg (Neg); Marijuana, Urine Neg (Neg); Methadone, Urine Neg (Neg); Opiate, Urine Neg (Neg); Phencyclidine, Urine Neg (Neg)
[2023-06-11] MEDS: ONDANSETRON INJ 2 MG/ML 2 ML VIAL IV STA (23:27)
--- NOTE | 2023-06-11 23:41 | Emergency Department Note ---
ED Visit Note 2340: Patient tremulous and nauseous appears to be going into withdrawal patient will be admitted Ativan ordered for the patient. .
--- NOTE | 2023-06-12 00:12 | History & Physical Report ---
Date of Service June 12, 2023 Assessment & Plan (1) Seizure: (2) Alcohol intoxication: (3) Alcohol abuse: (4) Alcohol withdrawal: (5) Tachycardia: (6) Depression: (7) Cirrhosis: Plan Seizure activity/seizure disorder- Patient reportedly had a seizure at home, the family thought was related to alcohol withdrawal Continue Lamictal 150 mg p.o. twice daily, with his evening dose now Lorazepam 1 mg IV every 6 hours as needed for seizure activity/agitation/alcohol withdrawal Placed on gabapentin for combination alcohol withdrawal and seizure prevention CT head negative UA negative Biofire negative Alcohol withdrawal/alcohol intoxication/alcohol abuse/history of delirium treme ns- Alcohol level 459 on admission AWSS protocol with IV graded scale Ativan Start gabapentin prophylaxis Continue clonidine 0.2 mg p.o. twice daily with dose now Lopressor 5 mg IV every 4 hours as needed for heart rate greater than 100 Will need to anticipate that patient may have a significant withdrawal course Status post 1 L banana bag in the ED Thiamine 100 mg p.o. every morning Folic acid 1 mg p.o. every morning NSS + KCl 20 mill equivalents at 100 mL/h x 1 liter Alcoholic liver disease/cirrhosis- Total bilirubin 1.3, AST 232, ALT 113, alkaline phosphatase 156, INR 1.0 No signs of hepatic encephalopathy Hypertension- Continue lisinopril 20 mg daily and clonidine 0.2 mg p.o. twice daily As noted above withdrawal tachycardia have Lopressor 5 mg IV every 4 hours as needed for heart rate greater than 10 Can add additional clonidine as needed History of Present Illness Chief Complaint: The patient presents to the emergency department due to concerns regarding a seizure that occurred earlier in the morning, and family concerns regarding alcohol withdrawal Primary Care Provider: Luis Antonio Guevara The patient is a 48-year-old male with past medical history including alcohol abuse, seizure disorder, admissions for alcohol withdrawal, depression, delirium tremens, cirrhosis, alcoholic liver disease, hepatic encephalopathy and hypertension. Patient was thought to have had a seizure earlier in the morning, and then family felt that he was having more problems with alcohol withdrawal as the day wore on. In the emergency department, the patient had a series of tremors, that there was concern regarding withdrawal, and patient was referred for evaluation for admission after being given IV Ativan Allergies Allergy/AdvReac Type Severity Reaction Status Date / Time No Known Allergies Allergy Mild Verified 05/24/22 13:20 Home Medications Medication Instructions Recorded Confirmed Type lamotrigine 150 mg tablet 150 mg PO BID 01/13/21 06/11/23 History (Lamictal) clonidine HCl 0.1 mg tablet 0.2 mg PO BID 11/11/21 06/11/23 History folic acid 1 mg tablet 1 mg PO DAILY 11/11/21 06/11/23 History lisinopril 20 mg tablet 20 mg PO DAILY 11/11/21 06/11/23 History fluocinonide 0.05 % topical cream 1 applic topical BID PRN Rash 01/29/23 06/11/23 History loratadine 10 mg tablet (Claritin) 10 mg PO DAILY PRN allergies 01/29/23 06/11/23 History multivitamin 1 tab PO DAILY 06/11/23 06/11/23 History Past Med/Surg History Medical History Depression Constipation Physical deconditioning Delirium tremens Metabolic encephalopathy Alcoholism Essential hypertension Seizures (~11/16/21) Surgical History No pertinent past surgical history Family History Father Skin cancer of face Denies family history of Alcoholism Seizure disorder Social History Smoking Status: Never smoker Tobacco Type: Cigarettes Cigarettes Per Day: 10; Second Hand Exposure: No; Do You Dip or Chew Tobacco: No; Hx Alcohol Use: Yes Alcohol type: hard liquor Alcohol type Comment: DAILY consumption, mixture of bottle of wine, bottle of liquor, and/or beer Hx Substance Use: No Preferred Language: Japanese Communication Ability: Effective 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 Beliefs That Will Affect Care: None marital status: Single marital status details: x 2 Current Living Situation: Parent Current Living Situation Comment: lives w/ father in [place] current occupational status: 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 [place] How many Children do You have: 0 Feels Safe at Home: Yes Assistive Devices: None Review of Systems Review of Systems: The patient denies chest pain, palpitations, shortness of breath, dyspnea on exertion, cough, lower extremity swelling, sore throat, fevers, chills, sweats, nausea, vomiting, diarrhea , constipation, abdominal pain, pelvic pain, blood in urine or stool, dysuria, urinary frequency or urgency, lightheadedness, dizziness, rash, abnormal bruising or bleeding, focal or generalized weakness, numbness or tingling in arms or legs, generalized arthralgias or myalgias, back or neck pain, or night sweats. The review of systems is otherwise negative other than for that already noted above, and at least 10 systems have been reviewed. Physical Exam Physical Exam: The patient is awake, alert and oriented 3, well developed and well nourished, normocephalic and atraumatic, lying in bed and in no acute distress. HEENT--PERRL, EOMI, mucous membranes and oropharynx mildly dry. Neck--supple. No JVD. No bruits. Thyroid normal, trachea midline, no adenopathy. Heart--normal S1 and S2. No murmurs, rubs or gallops. Lungs--clear bilaterally, no respiratory distress, no accessory muscle use. Abdomen--normal bowel sounds and soft. Nontender. Nondistended, no hernias or masses, no organomegaly. Extremities--no cyanosis or clubbing. No edema. There are good distal pulses b/l. Dermatologic--normal skin turgor, normal color, no abnormal lymph nodes, no rash. Neurologic--cranial nerves II through XII grossly intact. Rheumatologic--normal range of motion. Psychiatric--normal affect. Results & Data Results & Data Vital Signs (Past 12 Hours) Vital Signs Temp Pulse Pulse Resp BP BP Pulse Ox 06/11/23 22:42 79 22 146/98 H 94 06/11/23 21:30 71 17 89 L 06/11/23 21:26 79 06/11/23 21:00 147/102 H 06/11/23 21:00 65 14 100 06/11/23 20:45 64 7 L 100 06/11/23 20:45 160/107 H 06/11/23 20:30 74 15 100 06/11/23 20:30 155/101 H 06/11/23 20:15 158/104 H 06/11/23 20:15 69 17 06/11/23 20:00 54 L 13 100 06/11/23 20:00 141/91 H 06/11/23 19:45 81 19 97 06/11/23 19:45 148/90 H 06/11/23 19:30 74 18 99 06/11/23 19:30 148/91 H 06/11/23 19:15 74 19 99 06/11/23 19:15 129/90 06/11/23 19:00 71 19 98 06/11/23 19:00 140/90 06/11/23 18:45 76 18 99 06/11/23 18:45 142/93 H 06/11/23 18:30 138/91 06/11/23 18:30 63 16 99 06/11/23 18:15 154/100 H 06/11/23 18:15 102 H 20 99 06/11/23 18:00 147/96 H 06/11/23 18:00 60 18 06/11/23 17:45 65 19 98 06/11/23 17:45 142/105 H 06/11/23 17:30 134/84 06/11/23 17:30 91 H 16 99 06/11/23 17:28 60 06/11/23 17:15 139/89 06/11/23 17:15 65 20 95 06/11/23 17:00 149/91 H 06/11/23 17:00 72 14 99 06/11/23 16:45 93 H 20 100 06/11/23 16:45 150/103 H 06/11/23 16:30 80 20 98 06/11/23 16:30 128/87 06/11/23 16:15 79 21 98 06/11/23 16:15 132/84 06/11/23 16:00 82 20 98 06/11/23 16:00 132/81 06/11/23 15:45 83 21 98 06/11/23 15:45 135/77 06/11/23 15:30 78 21 91 06/11/23 15:30 134/96 06/11/23 15:15 139/88 06/11/23 15:15 78 21 06/11/23 15:02 79 20 92 06/11/23 15:02 139/97 06/11/23 15:00 71 15 97 06/11/23 14:45 76 16 139/94 93 06/11/23 14:32 88 19 137/98 94 04/03/24 13:30 82 16 143/105 H 97 06/11/23 13:30 79 06/11/23 13:25 36.6 C 77 20 143/105 H 97 06/11/23 13:25 95 06/11/23 13:15 36.6 C 91 H 15 135/91 97 O2 Del Method O2 Flow Rate 06/11/23 22:42 Room Air 06/11/23 21:30 06/11/23 21:26 06/11/23 21:00 06/11/23 21:00 06/11/23 20:45 06/11/23 20:45 06/11/23 20:30 06/11/23 20:30 06/11/23 20:15 06/11/23 20:15 06/11/23 20:00 06/11/23 20:00 06/11/23 19:45 06/11/23 19:45 06/11/23 19:30 06/11/23 19:30 06/11/23 19:15 06/11/23 19:15 06/11/23 19:00 06/11/23 19:00 06/11/23 18:45 06/11/23 18:45 06/11/23 18:30 06/11/23 18:30 06/11/23 18:15 06/11/23 18:15 06/11/23 18:00 06/11/23 18:00 06/11/23 17:45 Nasal Cannula 4 06/11/23 17:45 06/11/23 17:30 06/11/23 17:30 06/11/23 17:28 06/11/23 17:15 06/11/23 17:15 06/11/23 17:00 06/11/23 17:00 06/11/23 16:45 06/11/23 16:45 06/11/23 16:30 06/11/23 16:30 06/11/23 16:15 06/11/23 16:15 06/11/23 16:00 06/11/23 16:00 06/11/23 15:45 06/11/23 15:45 06/11/23 15:30 06/11/23 15:30 06/11/23 15:15 06/11/23 15:15 06/11/23 15:02 Nasal Cannula 2 06/11/23 15:02 06/11/23 15:00 06/11/23 14:45 Room Air 06/11/23 14:32 Room Air 06/11/23 13:30 06/11/23 13:30 06/11/23 13:25 Room Air 06/11/23 13:25 Room Air 0 06/11/23 13:15 Room Air Laboratory Results Laboratory Results WBC 3.71 K/ul (4.8-10.8) L 06/11/23 13:30 RBC 4.58 M/uL (4.70-6.10) L 06/11/23 13:30 Hgb 15.4 g/dl (14.0-18.0) 06/11/23 13:30 Hct 43.3 % (42.0-52.0) 06/11/23 13:30 MCV 94.5 fL (80.0-100.0) 06/11/23 13:30 MCH 33.6 pg (25.0-34.0) 06/11/23 13:30 MCHC 35.6 g/dL (32.0-36.0) 06/11/23 13:30 RDW Std Deviation 52.6 fL (36.4-46.3) H 06/11/23 13:30 RDW Coeff of Amena 15.2 % (11.5-14.5) H 06/11/23 13:30 Plt Count 89 K/uL (130-400) L 06/11/23 13:30 MPV 10.4 fL (9.4-12.4) 06/11/23 13:30 Immature Gran % (Auto) 0.0 % 06/11/23 13:30 Neut % (Auto) 45.5 % 06/11/23 13:30 Lymph % (Auto) 43.4 % 06/11/23 13:30 Gregg % (Auto) 8.9 % 06/11/23 13:30 Eos % (Auto) 1.1 % 06/11/23 13:30 Baso % (Auto) 1.1 % 06/11/23 13:30 Neut # (Auto) 1.69 K/uL (1.40-6.50) 06/11/23 13:30 Lymph # (Auto) 1.61 K/uL (1.20-3.40) 06/11/23 13:30 Gregg # (Auto) 0.33 K/uL (0.11-0.59) 06/11/23 13:30 Eos # (Auto) 0.04 K/uL (0.00-0.50) 06/11/23 13:30 Baso # (Auto) 0.04 K/uL (0.00-0.20) 06/11/23 13:30 Immature Gran # (Auto) 0.00 K/uL (0.01-0.20) L 06/11/23 13:30 PT 11.4 Seconds (9.0-12.0) 06/11/23 13:30 INR 1.0 (0.9-1.1) 06/11/23 13:30 Sodium 138 mmol/L (136-145) 06/11/23 13:30 Potassium 3.7 mmol/L (3.5-5.1) 06/11/23 13:30 Chloride 101 mmol/L (98-107) 06/11/23 13:30 Carbon Dioxide 23 mmol/L (21-32) 06/11/23 13:30 Anion Gap 14 (3-11) H 06/11/23 13:30 BUN 10 mg/dl (6-23) 06/11/23 13:30 Creatinine 0.84 mg/dl (0.6-1.4) 06/11/23 13:30 Est Cr Clr Drug Dosing 131.4 ml/min 06/11/23 13:30 Est GFR ( Amer) 121.7 ml/min 06/11/23 13:30 Est GFR (Non-Af Amer) 105.0 ml/min 06/11/23 13:30 BUN/Creatinine Ratio 11.9 (10-20) 06/11/23 13:30 Glucose 105 mg/dl (70-99(Fasting)) H 06/11/23 13:30 Calcium 9.5 mg/dl (8.6-10.3) 06/11/23 13:30 Magnesium 2.0 mg/dl (1.7-2.4) 06/11/23 13:30 Total Bilirubin 1.3 mg/dl (0.2-1.0) H 06/11/23 13:30 AST 232 U/L (13-39) H 06/11/23 13:30 ALT 113 U/L (7-52) H 06/11/23 13:30 Alkaline Phosphatase 156 U/L (34-104) H 06/11/23 13:30 Troponin I High Sens 7.3 pg/ml (0-20) 06/11/23 13:30 Total Protein 9.2 gm/dl (6.0-8.3) H 06/11/23 13:30 Albumin 5.0 gm/dl (3.4-5.0) 06/11/23 13:30 Globulin 4.2 gm/dl (2.5-4.0) H 06/11/23 13:30 Albumin/Globulin Ratio 1.2 (0.9-2) 06/11/23 13:30 Lipase 56 U/L (11-82) 06/11/23 13:30 TSH 0.943 uIu/ml (0.300-4.500) 06/11/23 13:30 Urine Color Dark Yellow 06/11/23 21:15 Urine Appearance Clear (Clear) 06/11/23 21:15 Urine pH 5.5 (4.5-7.5) 06/11/23 21:15 Ur Specific [place] 1.020 (1.000-1.030) 06/11/23 21:15 Urine Protein 2+ (Negative) H 06/11/23 21:15 Urine Glucose (UA) Negative (Negative) 06/11/23 21:15 Urine Ketones Trace (Negative) H 06/11/23 21:15 Urine Blood 2+ (Negative) H 06/11/23 21:15 Urine Nitrite Negative (Negative) 06/11/23 21:15 Urine Bilirubin Negative (Negative) 06/11/23 21:15 Urine Urobilinogen Negative (Negative) 06/11/23 21:15 Ur Leukocyte Esterase Negative (Negative) 06/11/23 21:15 Urine WBC (Auto) 1-5 /hpf (0-5) 06/11/23 21:15 Urine RBC (Auto) 10-30 /hpf (0-4) H 06/11/23 21:15 U Hyaline Cast (Auto) 5-10 /lpf (0-5) H 06/11/23 21:15 U Epithel Cells (Auto) 10-20 /lpf (0-5) H 06/11/23 21:15 Urine Bacteria (Auto) Negative (Negative) 06/11/23 21:15 Urine Opiates Screen Neg (Neg) 06/11/23 21:15 Ur Methadone, Qual Neg (Neg) 06/11/23 21:15 Urine Barbiturates Neg (Neg) 06/11/23 21:15 Ur Phencyclidine (PCP) Neg (Neg) 06/11/23 21:15 U Amphetamin/Meth Scrn Neg (Neg) 06/11/23 21:15 MDMA (Ecstasy) Screen Neg (Neg) 06/11/23 21:15 U Benzodiazepines Scrn Neg (Neg) 06/11/23 21:15 Ur Cocaine Metabolite Neg (Neg) 06/11/23 21:15 U Marijuana (THC) Screen Neg (Neg) 06/11/23 21:15 Ethyl Alcohol mg/dL 459.0 mg/dl (<10.0) H 06/11/23 13:30 Adenovirus (PCR) Not Detected (NotDetected) 06/11/23 14:39 B. pertussis DNA (PCR) Not Detected (NotDetected) 06/11/23 14:39 B.parapertussis DNA PCR Not Detected (NotDetected) 06/11/23 14:39 C. pneumoniae DNA (PCR) Not Detected (NotDetected) 06/11/23 14:39 Coronavirus OC43 (PCR) Not Detected (NotDetected) 06/11/23 14:39 Coronavirus HKU1 (PCR) Not Detected (NotDetected) 06/11/23 14:39 Coronavirus 229E (PCR) Not Detected (NotDetected) 06/11/23 14:39 SARS-CoV-2 (PCR) Not Detected (NotDetected) 06/11/23 14:39 Coronavirus NL63 (PCR) Not Detected (NotDetected) 06/11/23 14:39 Human Metapneumovir PCR Not Detected (NotDetected) 06/11/23 14:39 Influenza Type A (PCR) Not Detected (NotDetected) 06/11/23 14:39 Influenza Type B (PCR) Not Detected (NotDetected) 06/11/23 14:39 M. pneumoniae (PCR) Not Detected (NotDetected) 06/11/23 14:39 Parainfluenza 1 (PCR) Not Detected (NotDetected) 06/11/23 14:39 Parainfluenza 2 (PCR) Not Detected (NotDetected) 06/11/23 14:39 Parainfluenza 3 (PCR) Not Detected (NotDetected) 06/11/23 14:39 Parainfluenza 4 (PCR) Not Detected (NotDetected) 06/11/23 14:39 RSV (PCR) Not Detected (NotDetected) 06/11/23 14:39 Entero/Rhino (PCR) Not Detected (NotDetected) 06/11/23 14:39 Impressions Chest X-Ray 06/11/23 13:49 XR chest 1V portable HISTORY: 48 years-old Male seizure acute seizure-like activity COMPARISON: 01/29/2023 TECHNIQUE: AP view of the chest FINDINGS: Cardiomediastinal and hilar silhouettes are within normal limits. No pneumothorax, pleural effusion or airspace consolidation. Bones appear grossly intact. IMPRESSION: No acute process. ACT 112: Negative or not required by law. The above report was generated using voice recognition software. It may contain grammatical, syntax or spelling errors. Electronically signed by: Refugio Palacios M.D. 06/11/2023 2:[address] 06/11/23 13:49 CT head/brain wo con CLINICAL HISTORY: 48 years-old Male with seizure, headache. Acute seizure with headache TECHNIQUE: Multiple axial CT images of the head were obtained without contrast. A dose lowering technique was utilized adhering to the principles of ALARA. CT DOSE: 625.8 mGy.cm COMPARISON: 10/26/2022 FINDINGS: No acute intracranial hemorrhage, midline shift, intracranial mass, hydrocephalus, territorial ischemia or abnormal extra-axial collection. The calvarium is intact. The paranasal sinuses, mastoid air cells, and middle ear cavities are clear. IMPRESSION: No acute intracranial abnormality. ACT 112: Negative or not required by law. The above report was generated using voice recognition software. It may contain grammatical, syntax or spelling errors. Electronically signed by: Refugio Palacios M.D. 06/11/2023 2:54 PM Code Status & VTE Plan Code Status Full code VTE Prophylaxis Plan VTE Prophylaxis will be ordered: Yes PG Care Time/CCT Total # of Minutes Spent Total Time Spent with Patient: Total time spent is greater than 50% in coordination of care (as documented) at patient's floor/unit and/or counseling patient: Coding Level of Care Code 60541 INT INP/OBS CARE 3/75MIN Diagnoses Seizure R56.9 Alcohol intoxication F10.929 Alcohol abuse F10.10 Alcohol withdrawal F10.939 Complication of substance-induced condition: with unspecified complication Tachycardia R00.0 Depression F32.A Cirrhosis K74.60 (4) Alcohol withdrawal Complication of substance-induced condition: with unspecified complication Qualified Code(s): F10.939 - Alcohol use, unspecified with withdrawal, unspecified
[2023-06-12] MEDS: NSS + 20MEQ KCL 20 MEQ/1,000 ML BAG IV STA (00:31)
[2023-06-12] MEDS ORDERED: Ativan IV Alcohol Withdrawal--Active Protocol IV PRN (01:36)
[2023-06-12] MEDS ORDERED: ONDANSETRON INJ 2 MG/ML 2 ML VIAL IV PRN (01:36)
[2023-06-12] MEDS ORDERED: GABAPENTIN 600MG ALCOHOL WITHDRAWAL LOAD PO STA (01:36)
[2023-06-12] MEDS ORDERED: LORATADINE 10 MG TAB PO PRN (01:36)
[2023-06-12] MEDS ORDERED: LORazepam 3 MG in SYRINGE 1.5 ML IV PRN (01:36)
[2023-06-12] MEDS ORDERED: CLOBETASOL PROPIONATE 0.05% CREAM 15 GM TUBE TOP PRN (01:46)
[2023-06-12] MEDS: cloNIDine HCL 0.1 MG TAB PO SCH (02:25)
[2023-06-12] MEDS: lamoTRIgine 100 MG TAB PO SCH (02:26)
[2023-06-12] MEDS: GABAPENTIN 600 MG TAB PO ONE (02:30)
[2023-06-12] MEDS: LORazepam 2 MG in SYRINGE 1 ML IV PRN (02:47)
[2023-06-12] MEDS: METOPROLOL TARTRATE 1 MG/ML VIAL IV STA (05:20)
[2023-06-12] MEDS: LORazepam 1 MG in SYRINGE 0.5 ML IV PRN (07:39)
[2023-06-12] MEDS: GABAPENTIN 100 MG CAP PO SCH (07:50)
[2023-06-12 09:24] LABS: Hematocrit (blood only) 36.1 % (42.0-52.0); Hemoglobin 12.7 g/dl (14.0-18.0); Mean Corpuscular Hgb Conc 35.2 g/dL (32.0-36.0); Mean Corpuscular Volume 96.8 fL (80.0-100.0); Mean Platelet Volume 10.6 fL (9.4-12.4); Platelet Count 46 K/uL (130-400); RDW Coefficient of Variation 15.4 % (11.5-14.5); RDW Standard Deviation 54.4 fL (36.4-46.3); Red Blood Count 3.73 M/uL (4.70-6.10); White Blood Count 3.55 K/ul (4.8-10.8)
[2023-06-12 09:35] LABS: Basophils # (auto) 0.03 K/uL (0.00-0.20); Basophils % (auto) 0.8 %; Eosinophils # (auto) 0.05 K/uL (0.00-0.50); Eosinophils % (auto) 1.4 %; Immature Granulocytes # (auto) 0.01 K/uL (0.01-0.20); Immature Granulocytes % (auto) 0.3 %; Lymphocytes # (auto) 1.44 K/uL (1.20-3.40); Lymphocytes % (auto) 40.6 %; Monocytes # (auto) 0.38 K/uL (0.11-0.59); Monocytes % (auto) 10.7 %; Neutrophils # (auto) 1.64 K/uL (1.40-6.50); Neutrophils % (auto) 46.2 %; Platelet Estimate Decreased (Normal); RBC Morphology Unremarkable
[2023-06-12] MEDS: MULTIVITAMIN TAB PO SCH (09:49)
[2023-06-12] MEDS: lisinopril 20 MG TAB PO SCH (09:50)
[2023-06-12] MEDS: FOLIC ACID 1 MG TAB PO SCH (09:50)
[2023-06-12] MEDS: THIAMINE HCL 100 MG TAB PO SCH (09:50)
[2023-06-12 09:51] LABS: Albumin Globulin Ratio 1.2 (0.9-2); Albumin Level 3.8 gm/dl (3.4-5.0); BUN Creatinine Ratio 17.6 (10-20); Bilirubin,Total 1.6 mg/dl (0.2-1.0); Calcium 7.7 mg/dl (8.6-10.3); Creatinine Clr Calc Pharmacy 162.3 ml/min; Est GFR (African American) 132.7 ml/min; Est GFR (Non-African American) 114.5 ml/min; Globulin 3.2 gm/dl (2.5-4.0); Magnesium 1.5 mg/dl (1.7-2.4); Potassium 4.3 mmol/L (3.5-5.1)
--- NOTE | 2023-06-12 12:41 | Hospitalist Progress Note ---
Date of Service June 12, 2023 Assessment & Plan (1) Seizure: Plan: Possible seizure activity prior to admission and possibly related to acute alcohol withdrawal. He is now on a scheduled dose of benzodiazepine. Continue Lamictal. Seizure precautions (2) Alcohol intoxication: Plan: Present on admission. Supportive care. AWSS protocol. IV fluids. History of alcoholism. (3) Alcohol withdrawal: Plan: Librium taper. KELL S protocol (4) Tachycardia: Plan: Present on admission. Resolved with IV fluids (5) Depression: Plan: Stable. Continue current medical (6) Cirrhosis: Plan: Alcohol induced. Patient counseled to stop drinking Plan Hopeful discharge to home in the next 48 to 72 hours Admission and Anticipated Discharge Date Admission Date: June 12, 2023 Subjective Sleeping but easily arousable. No acute problems. No overt DTs. He is now on a scheduled dose of chlordiazepoxide. Admission head CT scan negative and chest x-ray negative. AWSS protocol also ordered Review of Systems 2 Review of Systems: Constitutional-no fever or chills ENT-no blurred vision, no double vision, no epistaxis, no sore throat Respiratory-no cough, no wheezing, no shortness of breath Cardiac-no palpitations, no chest pain, no syncope GI-no nausea, vomiting, diarrhea, melena, hematochezia -no urinary retention, no urinary incontinence, no dysuria, no hematuria Musculoskeletal-no joint pain, no muscle tenderness Skin-no bruising, no rashes, no pruritus Neuro-no isolated weakness, no paresthesia, no weakness Psych-no depression, no anxiety Physical Exam 2 Physical Exam: General-alert and oriented x3, no fevers, no chills HEENT-head atraumatic and normocephalic, pupils equal and reactive to light, extraocular muscles intact Neck-no lymphadenopathy or thyromegaly, trachea midline Chest-clear to auscultation. No rales, wheezing or rhonchi Cardiac-regular rate and rhythm, normal S1 and S2 Abdomen-normal bowel sounds, nontender, no hepatosplenomegaly Extremities-no cyanosis, clubbing, or edema Neuro-cranial nerves II through XII intact, motor and sensory function within normal limits, strength symmetrical, no focal deficits Psych-normal affect, normal mood Results & Data Results & Data Vital Signs (Past 12 Hours) Vital Signs Temp Pulse Pulse Resp BP BP Pulse Ox 04/04/24 12:00 64 18 136/88 94 06/12/23 11:09 72 18 94 06/12/23 09:46 83 18 144/97 H 97 06/12/23 08:36 06/12/23 08:03 79 18 143/89 H 93 06/12/23 07:07 84 06/12/23 06:00 36.9 C 75 18 138/85 97 06/12/23 06:00 75 138/85 06/12/23 05:20 85 141/88 H 06/12/23 03:45 06/12/23 03:44 06/12/23 02:34 117 H 16 174/114 H 96 06/12/23 02:00 86 12 95 06/12/23 01:56 86 Pulse Ox O2 Del Method O2 Del Method O2 Flow Rate O2 Flow Rate 06/12/23 12:00 Nasal Cannula 2 06/12/23 11:09 Nasal Cannula 2 06/12/23 09:46 Nasal Cannula 2 06/12/23 08:36 Nasal Cannula 2 06/12/23 08:03 Nasal Cannula 2 06/12/23 07:07 06/12/23 06:00 Nasal Cannula 2 06/12/23 06:00 06/12/23 05:20 06/12/23 03:45 95 Nasal Cannula 2 06/12/23 03:44 87 L Room Air 06/12/23 02:34 Room Air 06/12/23 02:00 Room Air 06/12/23 01:56 Laboratory Results 06/12/23 07:21 06/12/23 07:21 PG Care Time/CCT Total # of Minutes Spent Total Time Spent with Patient: Total time spent is greater than 50% in coordination of care (as documented) at patient's floor/unit and/or counseling patient: Coding Level of Care Code 69821 SUB INP/OBS CARE 3/50MIN Diagnoses Seizure R56.9 Alcohol intoxication F10.929 Alcohol withdrawal F10.939 Complication of substance-induced condition: with unspecified complication Tachycardia R00.0 Depression F32.A Cirrhosis K74.60 (3) Alcohol withdrawal Complication of substance-induced condition: with unspecified complication Qualified Code(s): F10.939 - Alcohol use, unspecified with withdrawal, unspecified
[2023-06-13] MEDS ORDERED: GABAPENTIN 600 MG TAB PO SCH (00:15)
[2023-06-13 04:20] LABS: Basophils # (auto) 0.01 K/uL (0.00-0.20); Basophils % (auto) 0.4 %; Eosinophils # (auto) 0.03 K/uL (0.00-0.50); Eosinophils % (auto) 1.1 %; Hematocrit (blood only) 35.1 % (42.0-52.0); Hemoglobin 12.4 g/dl (14.0-18.0); Immature Granulocytes # (auto) 0.01 K/uL (0.01-0.20); Immature Granulocytes % (auto) 0.4 %; Lymphocytes # (auto) 0.89 K/uL (1.20-3.40); Lymphocytes % (auto) 31.6 %; Mean Corpuscular Hemoglobin 34.2 pg (25.0-34.0); Mean Corpuscular Hgb Conc 35.3 g/dL (32.0-36.0); Mean Corpuscular Volume 96.7 fL (80.0-100.0); Mean Platelet Volume 10.5 fL (9.4-12.4); Monocytes # (auto) 0.37 K/uL (0.11-0.59); Monocytes % (auto) 13.1 %; Neutrophils # (auto) 1.51 K/uL (1.40-6.50); Neutrophils % (auto) 53.4 %; Platelet Count 40 K/uL (130-400); RDW Coefficient of Variation 14.3 % (11.5-14.5); RDW Standard Deviation 50.6 fL (36.4-46.3); Red Blood Count 3.63 M/uL (4.70-6.10); White Blood Count 2.82 K/ul (4.8-10.8)
[2023-06-13 04:36] LABS: Albumin Globulin Ratio 1.1 (0.9-2); Albumin Level 3.9 gm/dl (3.4-5.0); BUN Creatinine Ratio 13.9 (10-20); Bilirubin,Total 1.7 mg/dl (0.2-1.0); Calcium 8.5 mg/dl (8.6-10.3); Creatinine Clr Calc Pharmacy 139.2 ml/min; Est GFR (African American) 124.8 ml/min; Est GFR (Non-African American) 107.7 ml/min; Globulin 3.4 gm/dl (2.5-4.0); Magnesium 1.6 mg/dl (1.7-2.4); Potassium 3.6 mmol/L (3.5-5.1); Total Protein 7.3 gm/dl (6.0-8.3)
[2023-06-13] MEDS ORDERED: IBUPROFEN 200 MG TAB PO PRN (09:54)
[2023-06-13] MEDS: IBUPROFEN 200 MG TAB PO STA (10:53)
[2023-06-13] MEDS: MAGNESIUM SULFATE / D5W 1 GM/100 ML BAG IV SCH (10:54)
--- NOTE | 2023-06-13 13:39 | CT Scan Report ---
CT SCAN OF THE ABDOMEN WITHOUT IV CONTRAST CLINICAL HISTORY: Thrombocytopenia COMPARISON STUDY: Abdominal ultrasound dated 11/16/2021. TECHNIQUE: CT scan of the abdomen is performed from the lung bases to the pelvic inlet. Images are re viewed in the axial, sagittal, and coronal planes. IV contrast was not administered for this examinat ion. A dose lowering technique was utilized adhering to the principles of ALARA. CT DOSE: 845.96 mGy.cm FINDINGS: Lung bases: The heart is normal in size and without pericardial effusion. There is bibasilar scarring /atelectasis. Trace pleural effusions are seen bilaterally. There is a small hiatal hernia. Esophagea l varices are noted. Liver: The unenhanced liver is top normal in size and demonstrates diffusely PA and heterogeneously d iminished attenuation indicating steatosis. Nodularity of the surface contour indicates morphologic c hange of cirrhosis. A 12 mm lipoma is noted in the right lobe. There is no intrahepatic biliary ducta l dilatation. There is recanalization of the periumbilical vein. Gallbladder: Unremarkable. Spleen: Normal in size and attenuation, measuring 11.0 cm in length. There are perisplenic and periga stric varices. Pancreas: Unremarkable. Adrenal glands: Unremarkable. Kidneys: The unenhanced kidneys are normal in size and without hydronephrosis. There are no renal mee culi identified. There is no evidence of contour deforming renal mass lesion. Abdominal vasculature: The abdominal aorta is normal in course and caliber. Bowel: Imaged portions of the small bowel and colon show no evidence of obstruction. There is moderat e fecal retention throughout the imaged colon. There is at least mild diverticulosis of the mid left colon without CT evidence of acute diverticulitis. Peritoneum: There is no intraperitoneal free air or abdominal ascites. There is a fat-containing umbi lical hernia. Lymphadenopathy: None. Skeletal structures: No lytic or blastic lesions are seen. IMPRESSION: 1. The liver is cirrhotic in morphology with evidence of steatosis. 2. Recanalization of the periumbilical vein and esophageal varices indicate portal hypertension. 3. The spleen is normal in size. 4. Trace pleural effusions. 5. Additional findings as above. ACT 112: Negative or not required by law. Electronically signed by: Joshua Rowe M.D. 06/13/2023 1:37 PM
--- NOTE | 2023-06-13 14:35 | Hospitalist Progress Note ---
Date of Service June 13, 2023 Assessment & Plan (1) Seizure: Plan: Possible seizure activity prior to admission and possibly related to acute alcohol withdrawal. He is now on a scheduled dose of benzodiazepine. Continue Lamictal. Seizure precautions (2) Pancytopenia: Plan: Most likely alcohol related. Serial labs. Abdomen CT scan done today, June 12, negative for splenomegaly. (3) Alcohol intoxication: Plan: Present on admission. Now resolved. Supportive care. AWSS protocol. IV fluids have been discontinued. History of alcoholism. (4) Alcohol withdrawal: Plan: Librium taper. AWSS protocol (5) Tachycardia: Plan: Present on admission. Resolved with IV fluids (6) Depression: Plan: Stable. Continue current medical (7) Cirrhosis: Plan: Alcohol induced. Patient counseled to stop drinking Plan Probable discharge to home tomorrow, June 13 Admission and Anticipated Discharge Date Admission Date: June 12, 2023 Subjective Alert and oriented. Abdomen CT scan negative for splenic enlargement. He does have evidence of cirrhosis as previously known. It appears the pancytopenia is due to alcohol related bone marrow suppression. Magnesium replacement underway parenterally. Review of Systems 2 Review of Systems: Constitutional-no fever or chills ENT-no blurred vision, no double vision, no epistaxis, no sore throat Respiratory-no cough, no wheezing, no shortness of breath Cardiac-no palpitations, no chest pain, no syncope GI-no nausea, vomiting, diarrhea, melena, hematochezia -no urinary retention, no urinary incontinence, no dysuria, no hematuria Musculoskeletal-no joint pain, no muscle tenderness Skin-no bruising, no rashes, no pruritus Neuro-no isolated weakness, no paresthesia, no weakness Psych-no depression, no anxiety Physical Exam 2 Physical Exam: General-alert and oriented x3, no fevers, no chills HEENT-head atraumatic and normocephalic, pupils equal and reactive to light, extraocular muscles intact Neck-no lymphadenopathy or thyromegaly, trachea midline Chest-clear to auscultation. No rales, wheezing or rhonchi Cardiac-regular rate and rhythm, normal S1 and S2 Abdomen-normal bowel sounds, nontender, no hepatosplenomegaly Extremities-no cyanosis, clubbing, or edema Neuro-cranial nerves II through XII intact, motor and sensory function within normal limits, strength symmetrical, no focal deficits Psych-normal affect, normal mood Results & Data Results & Data Vital Signs (Past 12 Hours) Vital Signs Temp Pulse Resp BP Pulse Ox O2 Del Method 06/13/23 10:36 37.4 C 81 20 137/90 95 Room Air 06/13/23 07:15 36.9 C 75 19 161/103 H 95 Room Air 06/13/23 02:59 37.0 C 75 18 154/99 H 96 Room Air Laboratory Results 06/13/23 04:03 06/13/23 04:03 PG Care Time/CCT Total # of Minutes Spent Total Time Spent with Patient: Total time spent is greater than 50% in coordination of care (as documented) at patient's floor/unit and/or counseling patient: Coding Level of Care Code 33407 SUB INP/OBS CARE 3/50MIN Diagnoses Seizure R56.9 Pancytopenia D61.818 Alcohol intoxication F10.929 Alcohol withdrawal F10.939 Complication of substance-induced condition: with unspecified complication Tachycardia R00.0 Depression F32.A Cirrhosis K74.60 (4) Alcohol withdrawal Complication of substance-induced condition: with unspecified complication Qualified Code(s): F10.939 - Alcohol use, unspecified with withdrawal, unspecified
[2023-06-13] MEDS: INFLUENZA VIRUS QUADRIVALENT VACCINE (IIV4) 0.5 ML SYR IM ONE (15:42)
[2023-06-14] MEDS ORDERED: GABAPENTIN 400 MG CAP PO SCH (00:15)
--- NOTE | 2023-06-14 00:51 | Electrocardiogram Report ---
Test Reason : Blood Pressure : / mmHG Vent. Rate : 074 BPM Atrial Rate : 074 BPM P-R Int : 152 ms QRS Dur : 084 ms QT Int : 398 ms P-R-T Axes : 068 041 035 degrees QTc Int : 441 ms Normal sinus rhythm with sinus arrhythmia Possible Anterior infarct , age undetermined Abnormal ECG When compared with ECG of 29-JAN-2023 12:09, No significant change Confirmed by Nathaniel Blas ([id number]) on 06/14/2023 12:51:32 AM Referred By: REFERRED SELF Confirmed By:Nathaniel Blas
[2023-06-14 06:31] LABS: Basophils # (auto) 0.03 K/uL (0.00-0.20); Basophils % (auto) 0.8 %; Eosinophils # (auto) 0.05 K/uL (0.00-0.50); Eosinophils % (auto) 1.3 %; Hemoglobin 13.5 g/dl (14.0-18.0); Immature Granulocytes # (auto) 0.01 K/uL (0.01-0.20); Immature Granulocytes % (auto) 0.3 %; Lymphocytes # (auto) 1.08 K/uL (1.20-3.40); Lymphocytes % (auto) 28.5 %; Mean Corpuscular Hemoglobin 33.4 pg (25.0-34.0); Mean Corpuscular Hgb Conc 34.6 g/dL (32.0-36.0); Mean Corpuscular Volume 96.5 fL (80.0-100.0); Mean Platelet Volume 11.1 fL (9.4-12.4); Monocytes # (auto) 0.42 K/uL (0.11-0.59); Monocytes % (auto) 11.1 %; Platelet Count 46 K/uL (130-400); RDW Coefficient of Variation 14.2 % (11.5-14.5); RDW Standard Deviation 50.5 fL (36.4-46.3); Red Blood Count 4.04 M/uL (4.70-6.10); White Blood Count 3.79 K/ul (4.8-10.8)
[2023-06-14 06:43] LABS: Albumin Globulin Ratio 1.2 (0.9-2); Albumin Level 4.2 gm/dl (3.4-5.0); BUN Creatinine Ratio 14.3 (10-20); Bilirubin,Total 1.6 mg/dl (0.2-1.0); Calcium 9.3 mg/dl (8.6-10.3); Creatinine Clr Calc Pharmacy 120.6 ml/min; Est GFR (African American) 121.7 ml/min; Globulin 3.6 gm/dl (2.5-4.0); Magnesium 1.9 mg/dl (1.7-2.4); Potassium 3.7 mmol/L (3.5-5.1); Total Protein 7.8 gm/dl (6.0-8.3)
--- NOTE | 2023-06-14 11:53 | Discharge Summary ---
Date of Service June 14, 2023 Admission HPI Per Admitting Provider The patient is a 48-year-old male with past medical history including alcohol abuse, seizure disorder, admissions for alcohol withdrawal, depression, delirium tremens, cirrhosis, alcoholic liver disease, hepatic encephalopathy and hypertension. Patient was thought to have had a seizure earlier in the morning, and then family felt that he was having more problems with alcohol withdrawal as the day wore on. In the emergency department, the patient had a series of tremors, that there was concern regarding withdrawal, and patient was referred for evaluation for admission after being given IV Ativan Principal Diagnosis Alcohol intoxication, alcohol induced pancytopenia, transaminitis Discharge Exam General-alert and oriented x3, no fevers, no chills HEENT-head atraumatic and normocephalic, pupils equal and reactive to light, extraocular muscles intact Neck-no lymphadenopathy or thyromegaly, trachea midline Chest-clear to auscultation. No rales, wheezing or rhonchi Cardiac-regular rate and rhythm, normal S1 and S2 Abdomen-normal bowel sounds, nontender, no hepatosplenomegaly Extremities-no cyanosis, clubbing, or edema Neuro-cranial nerves II through XII intact, motor and sensory function within normal limits, strength symmetrical, no focal deficits Psych-normal affect, normal mood Discharge Data Allergies Allergy/AdvReac Type Severity Reaction Status Date / Time No Known Allergies Allergy Mild Verified 05/24/22 13:20 Consultations 06/11/23 23:39 ED Decision to Admit Stat Ordered Studies 06/11/23 13:49 CT head/brain wo con Stat 06/13/23 11:27 CT abdomen wo con Urgent Hospital Course (1) Seizure: Possible seizure activity prior to admission and possibly related to acute alcohol withdrawal. He is now on a scheduled dose of benzodiazepine. Continue Lamictal. Seizure precautions (2) Pancytopenia: Most likely alcohol related. Serial labs. Abdomen CT scan done on June 12 is negative for splenomegaly. Doubt hypersplenism (3) Alcohol intoxication: Present on admission. Now resolved. Supportive care. AWSS protocol. IV fluids have been discontinued. History of alcoholism. (4) Alcohol withdrawal: Librium taper. AWSS protocol (5) Tachycardia: Present on admission. Resolved with IV fluids (6) Depression: Stable. Continue current medical (7) Cirrhosis: Alcohol induced. Patient counseled to stop drinking Plan Home today on Librium taper, June 13 Total Time Total Time Spent Total Time Spent (In Minutes): 45 minutes Discharge Plan Discharge Items Patient Disposition: Home - Self-Care Reason For Visit: ALCOHOL WITHDRAWAL, SEIZURE Discharge Diagnosis: Alcohol intoxication, alcohol withdraw, alcohol induced pancytopenia, rose saminitis Activity: Resume your previous activity Non-emergency contact: Primary Care Provider Call non-emergency contact if: you have any medication questions Follow-up/Referrals: Luis Antonio Guevara [Primary Care Provider] - Diet: Regular Addtl Attending Provider Instructions: Alcohol intake cessation is highly recommended. Take chlordiazepoxide in a tapering dose fashion as directed Pending Studies at Discharge: No Stand-Alone Forms: My [facility] [employer], Smoking Cessation Medications and DC Order Prescriptions: New chlordiazepoxide HCl 10 mg Capsule See Rx Instructions .ROUTE .COMPLEX Qty: 12 0RF Rx Instructions: 10 mg orally 3 times a day for 2 days, then 10 mg twice a day for 2 days, then 10 mg once a day for 2 days, then stop thiamine HCl (vitamin B1) 100 mg Tablet 100 mg PO QAM Qty: 0 0RF Continued lamotrigine [Lamictal] 150 mg tablet 150 mg PO BID Rx Instructions: Taken @ 0730 loratadine [Claritin] 10 mg tablet 10 mg PO DAILY PRN (Reason: allergies) fluocinonide 0.05 % cream 1 applic topical BID PRN (Reason: Rash) Rx Instructions: Apply to areas of the trunk and extremities twice daily x 2 weeks as directed. clonidine HCl 0.1 mg tablet 0.2 mg PO BID lisinopril 20 mg tablet 20 mg PO DAILY folic acid 1 mg tablet 1 mg PO DAILY multivitamin Tablet 1 tab PO DAILY Discharge Orders: Discharge Order (Routine); Ordered 06/14/23 Ordered By: José Miguel Valentine Admission Data Admit Date/Time: 06/12/23 00:11 Attending Provider: José Miguel Valentine Admit Provider: Mike Lombardo Primary Care Provider: Luis Antonio Guevara Other Providers: Mike Lombardo Coding Level of Care Code 48345 INP/OBS DISCH >30 MIN Diagnoses Seizure R56.9 Pancytopenia D61.818 Alcohol intoxication F10.929 Alcohol withdrawal F10.939 Complication of substance-induced condition: with unspecified complication Tachycardia R00.0 Depression F32.A Cirrhosis K74.60
[2023-06-15] MEDS ORDERED: GABAPENTIN 100 MG CAP PO SCH (00:15)
== END 2023-06-14 13:07 | disposition home or self-care (01) | DRG 896 ==
LOC: ED 13:04 → EDINP 06-12 00:11 → SUATTDRO 06-12 00:11 → EDINP 06-12 01:37 → 2E 06-12 18:55

== ENCOUNTER 2023-07-26 07:02 | Inpatient (IN) ==
[2023-07-26] MEDS ORDERED: LORazepam 1 MG in SYRINGE 0.5 ML IV PRN (07:19)
[2023-07-26] MEDS ORDERED: LORazepam 2 MG in SYRINGE 1 ML IV PRN (07:19)
[2023-07-26] MEDS ORDERED: LORazepam 3 MG in SYRINGE 1.5 ML IV PRN (07:19)
[2023-07-26] MEDS ORDERED: LORazepam 2 MG in SYRINGE 0.5 ML IV STA (07:19)
[2023-07-26] MEDS ORDERED: Ativan IV Alcohol Withdrawal--Active Protocol IV PRN (07:19)
--- NOTE | 2023-07-26 07:45 | Emergency Department Note ---
Impression & Plan Alcohol withdrawal ED Provider Note CHIEF COMPLAINT: Shaking, vomiting HISTORY OF PRESENT ILLNESS: This 48-year-old male patient presents emergency department with his father at the bedside, complaining of severe shaking and vomiting, worse when he lies flat. Patient has a longstanding history of alcohol abuse and states he was here 3 days ago after having an episode of acute disorientation while working. Patient was noted to be significantly intoxicated with a blood alcohol of 455 and 354 on 2 consecutive visits in the last week. He and his father state he has not had anything to drink since that time. REVIEW OF SYSTEMS: A review of systems was performed with positives and pertinent negatives listed in the history of present illness. 10 systems were reviewed and are otherwise negative. ALLERGIES: see below MEDICATIONS: see below PMH: see below SOCIAL HISTORY: see below DDx: Alcohol withdrawal, electrolyte abnormality, cardiac arrhythmia, medication withdrawal, seizure among others. PHYSICAL EXAM: Vital signs reviewed. Hypertensive and tachycardic General: Chronically ill-appearing 48-year-old male, in no significant distress. Shaking and anxious appearing. HEENT: No scleral icterus, PERRLA, neck supple. Atraumatic. Cardiovascular: Regular rate and rhythm, no extra sounds. Pulmonary: Clear to auscultation bilaterally, normal work of breathing. Abdomen: Soft, nontender, nondistended, positive bowel sounds. Musculoskeletal: Atraumatic, no peripheral edema. Neurologic: Patient awake alert and oriented x 3, speech is clear. Fine tremor noted to the head, upper and lower extremities. Skin: Warm, dry, telangiectasias noted to the upper chest and arms. EMERGENCY DEPARTMENT COURSE/MDM: This patient was evaluated and appeared to be in no significant distress. IV access was obtained and laboratory work was drawn. The patient was placed on the monitor and storage bin tender noted to be slightly tachycardic and hypertensive. Patient was given 1 L of normal saline solution and a banana bag was ordered. Patient has longstanding history of alcohol dependency. He was given 2 mg of IV Ativan with significant resolution of symptoms. Laboratory work reveals a negative alcohol. Patient did become slightly agitated and was placed on the alcohol withdrawal protocol. Seizure precautions were maintained. Case was discussed with the hospitalist service who will evaluate the patient for admission due to alcohol withdrawal. Patient and his father were made aware of the plan and agreed. MONITORING: An order for cardiac monitoring was placed and the patient is noted to be in a sinus tachycardia at 104 beats per minute. EKG: To my interpretation reveals a sinus tachycardia at 104 bpm. QTc is 468. Left atrial enlargement. No PVC, no PAC. DISPOSITION: Admission Past Med/Surg History Problem List (Updated 07/26/23 @ 11:07 by Karley Mae MD) Hypertension Alcohol abuse with withdrawal (Acute) Alcohol abuse (Acute) Pancytopenia Abnormal LFTs (Acute) Alcohol intoxication (Acute) Vomiting (Acute) Tachycardia (Acute) Alcohol withdrawal (Acute) Delirium tremens Nausea (Acute) Delirium tremens (Acute) Seizures (~11/16/21) Seizure (Acute) Thrombocytopenia (Acute) Elevated LFTs (Acute) CHI (closed head injury) (Acute) Alcoholic liver disease Hepatic encephalopathy Hypomagnesemia (Acute) Abnormal LFTs DVT prophylaxis Thrombocytopenia (Acute) High anion gap metabolic acidosis Hypokalemia Alcohol withdrawal seizure (Acute) Essential hypertension Alcoholism (Acute) Alcohol withdrawal (Acute) Medical History Seizure Alcohol abuse Cirrhosis Depression Constipation Physical deconditioning Metabolic encephalopathy Surgical History No pertinent past surgical history Family History Father Skin cancer of face Denies family history of Alcoholism Seizure disorder Social History Smoking Status: Never smoker Tobacco Type: Cigarettes Cigarettes Per Day: 1/2 pack per day; Second Hand Exposure: No; Do You Dip or Chew Tobacco: No; Hx Alcohol Use: Yes Alcohol type: wine Alcohol type Comment: DAILY consumption, mixture of bottle of wine, bottle of liquor, and/or beer Hx Substance Use: No Preferred Language: Sudanese Communication Ability: Effective Glass Loading Equipment Tender Required: No Beliefs That Will Affect Care: None marital status: Single marital status details: x 2 Current Living Situation: Parent Current Living Situation Comment: lives w/ father in [place] current occupational status: 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[employer] How many Children do You have: 0 Feels Safe at Home: Yes Assistive Devices: None Allergies Allergies Allergy/AdvReac Type Severity Reaction Status Date / Time No Known Allergies Allergy Mild Verified 07/26/23 08:27 Home Meds Home Medications Medication Instructions Recorded Confirmed lamotrigine 150 mg tablet 150 mg PO BID 01/13/21 07/26/23 (Lamictal) clonidine HCl 0.1 mg tablet 0.2 mg PO BID 11/11/21 07/26/23 folic acid 1 mg tablet 1 mg PO DAILY 11/11/21 07/26/23 lisinopril 20 mg tablet 20 mg PO BID 11/11/21 07/26/23 fluocinonide 0.05 % topical cream 1 applic topical BID PRN Rash 01/29/23 07/26/23 multivitamin 1 tab PO DAILY 06/11/23 07/26/23 ibuprofen 200 mg tablet (Advil) 200 mg PO Q6H PRN Pain 07/26/23 07/26/23 Previous Rx's Medication Instructions Recorded thiamine HCl (vitamin B1) 100 mg 100 mg PO QAM #0 tabs 06/14/23 tablet Results & Data (ED) Vital Signs Vital Signs - 24 hr 07/26/23 07:03 07/26/23 07:06 07/26/23 07:20 Temperature 36.9 C Temperature Source Oral Pulse Rate 104 H Pulse Rate from SpO2 Sensor Respiratory Rate 18 20 Respiratory Effort / Characteristics Non-Labored Spontaneous Respiratory Depth Normal Blood Pressure 164/88 H Blood Pressure [Left Arm] Blood Pressure [] 162/98 H Blood Pressure Mean 113 Blood Pressure Mean [Left Arm] Blood Pressure Mean [] 119 Pulse Oximetry 95 98 94 Oxygen Delivery Method Room Air Room Air Sepsis Recent Fever Within 48 Hours No Sepsis New/Unexplained Change in Mental Status N/A Sepsis Action Taken by Nursing No Action Required 07/26/23 07:35 07/26/23 07:40 07/26/23 07:50 Temperature Temperature Source Pulse Rate 104 H 108 H 106 H Pulse Rate from SpO2 Sensor 104 H 109 H 106 H Respiratory Rate 25 H 21 Respiratory Effort / Characteristics Respiratory Depth Blood Pressure Blood Pressure [Left Arm] Blood Pressure [] Blood Pressure Mean Blood Pressure Mean [Left Arm] Blood Pressure Mean [] Pulse Oximetry 95 96 96 Oxygen Delivery Method Sepsis Recent Fever Within 48 Hours Sepsis New/Unexplained Change in Mental Status Sepsis Action Taken by Nursing 07/26/23 07:57 07/26/23 08:00 07/26/23 08:10 Temperature Temperature Source Pulse Rate 105 H 103 H 102 H Pulse Rate from SpO2 Sensor 102 H 103 H Respiratory Rate 26 H 26 H Respiratory Effort / Characteristics Respiratory Depth Blood Pressure Blood Pressure [Left Arm] Blood Pressure [] Blood Pressure Mean Blood Pressure Mean [Left Arm] Blood Pressure Mean [] Pulse Oximetry 94 94 Oxygen Delivery Method Sepsis Recent Fever Within 48 Hours Sepsis New/Unexplained Change in Mental Status Sepsis Action Taken by Nursing 07/26/23 08:16 07/26/23 08:16 07/26/23 08:20 Temperature Temperature Source Pulse Rate 98 H 90 Pulse Rate from SpO2 Sensor 97 H 91 H Respiratory Rate 21 21 Respiratory Effort / Characteristics Respiratory Depth Blood Pressure 147/91 H Blood Pressure [Left Arm] Blood Pressure [] Blood Pressure Mean 119 Blood Pressure Mean [Left Arm] Blood Pressure Mean [] Pulse Oximetry 95 94 Oxygen Delivery Method Sepsis Recent Fever Within 48 Hours Sepsis New/Unexplained Change in Mental Status Sepsis Action Taken by Nursing 07/26/23 08:30 07/26/23 08:40 07/26/23 08:50 Temperature Temperature Source Pulse Rate 102 H 103 H Pulse Rate from SpO2 Sensor 107 H 104 H 95 H Respiratory Rate 28 H 37 H 27 H Respiratory Effort / Characteristics Respiratory Depth Blood Pressure Blood Pressure [Left Arm] Blood Pressure [] Blood Pressure Mean Blood Pressure Mean [Left Arm] Blood Pressure Mean [] Pulse Oximetry 94 93 95 Oxygen Delivery Method Sepsis Recent Fever Within 48 Hours Sepsis New/Unexplained Change in Mental Status Sepsis Action Taken by Nursing 07/26/23 09:00 07/26/23 09:00 07/26/23 09:03 Temperature Temperature Source Pulse Rate 97 H Pulse Rate from SpO2 Sensor 97 H Respiratory Rate Respiratory Effort / Characteristics Respiratory Depth Blood Pressure 154/103 H Blood Pressure [Left Arm] 154/103 H Blood Pressure [] Blood Pressure Mean 116 Blood Pressure Mean [Left Arm] 120 Blood Pressure Mean [] Pulse Oximetry 94 94 Oxygen Delivery Method Room Air Sepsis Recent Fever Within 48 Hours Sepsis New/Unexplained Change in Mental Status Sepsis Action Taken by Nursing 07/26/23 10:49 07/26/23 10:52 Temperature Temperature Source Pulse Rate 89 86 Pulse Rate from SpO2 Sensor Respiratory Rate 26 H 24 Respiratory Effort / Characteristics Respiratory Depth Blood Pressure 157/100 H 126/77 Blood Pressure [Left Arm] Blood Pressure [] Blood Pressure Mean Blood Pressure Mean [Left Arm] Blood Pressure Mean [] Pulse Oximetry Oxygen Delivery Method Sepsis Recent Fever Within 48 Hours Sepsis New/Unexplained Change in Mental Status Sepsis Action Taken by [facility] Medications Current Medication List: was personally reviewed by me Laboratory Data Attestation: I reviewed the patient's lab results. 07/26/23 Unknown 07/26/23 Unknown Lab Results 07/26/23 Range/Units Unknown WBC 5.94 (4.8-10.8) K/ul RBC 3.58 L (4.70-6.10) M/uL Hgb 12.8 L (14.0-18.0) g/dl Hct 36.3 L (42.0-52.0) % MCV 101.4 H (80.0-100.0) fL MCH 35.8 H (25.0-34.0) pg MCHC 35.3 (32.0-36.0) g/dL RDW Std Deviation 49.1 H (36.4-46.3) fL RDW Coeff of Amena 13.2 (11.5-14.5) % Plt Count 58 L (130-400) K/uL MPV 11.3 (9.4-12.4) fL Immature Gran % (Auto) 0.2 % Neut % (Auto) 80.2 % Lymph % (Auto) 9.8 % Foster % (Auto) 9.6 % Eos % (Auto) 0.0 % Baso % (Auto) 0.2 % Neut # (Auto) 4.77 (1.40-6.50) K/uL Lymph # (Auto) 0.58 L (1.20-3.40) K/uL Foster # (Auto) 0.57 (0.11-0.59) K/uL Eos # (Auto) 0.00 (0.00-0.50) K/uL Baso # (Auto) 0.01 (0.00-0.20) K/uL Immature Gran # (Auto) 0.01 (0.01-0.20) K/uL PT 12.1 H (9.0-12.0) Seconds INR 1.1 (0.9-1.1) Sodium 130 L (136-145) mmol/L Potassium 3.5 (3.5-5.1) mmol/L Chloride 95 L (98-107) mmol/L Carbon Dioxide 22 (21-32) mmol/L Anion Gap 13 H (3-11) BUN 21 (6-23) mg/dl Creatinine 1.29 (0.6-1.4) mg/dl Est Cr Clr Drug Dosing 78.5 ml/min Est GFR ( Amer) 76.6 ml/min Est GFR (Non-Af Amer) 66.1 ml/min BUN/Creatinine Ratio 16.3 (10-20) Glucose 128 H (70-99(Fasting)) mg/dl Calcium 9.8 (8.6-10.3) mg/dl Magnesium 1.9 (1.7-2.4) mg/dl Total Bilirubin 2.0 H (0.2-1.0) mg/dl AST 151 H (13-39) U/L ALT 75 H (7-52) U/L Alkaline Phosphatase 102 (34-104) U/L Total Protein 8.3 (6.0-8.3) gm/dl Albumin 4.7 (3.4-5.0) gm/dl Globulin 3.6 (2.5-4.0) gm/dl Albumin/Globulin Ratio 1.3 (0.9-2) TSH 2.454 (0.300-4.500) uIu/ml Ethyl Alcohol mg/dL < 10.0 (<10.0) mg/dl Administered Medications Discontinued Medications Sodium Chloride (Nss) 1,000 mls @ 999 mls/hr IV .Q1H1M ROBIN Stop: 07/26/23 08:30 Last Infusion: 07/26/23 10:07 Dose: Infused Documented By: Admin: 07/26/23 08:13 Dose: 999 mls/hr Documented By: LINDSEY Multivitamins 10 ml/ Thiamine HCl 100 mg/ Folic Acid 1 mg/Sodium Chloride 1,011.2 mls @ 500 mls/hr IV .Q2H2M ONE Stop: 07/26/23 09:20 Last Infusion: 07/26/23 10:16 Dose: Infused Documented By: Admin: 07/26/23 08:13 Dose: 500 mls/hr Documented By: LINDSEY Lorazepam 2 mg/ Syringe 2 mls @ 2 mls/min IV ONE ONE; Protocol Stop: 07/26/23 07:31 Last Admin: 07/26/23 08:13 Dose: 2 mls/min Documented By: LINDSEY Phenobarbital Sodium (Phenobarbital Sodium 65 Mg/Ml Vial) 130 mg IV NOW STA Stop: 07/26/23 10:01 Last Admin: 07/26/23 10:49 Dose: 130 mg Documented By: LINDSEY Phenobarbital Sodium (Phenobarbital Sodium 65 Mg/Ml Vial) 130 mg IV NOW STA Stop: 07/26/23 10:42 Last Admin: 07/26/23 10:52 Dose: 130 mg Documented By: LINDSEY Discharge Plan Visit Data Chief Complaint: Illness Stated Complaint: SHAKING, VOMITING, EPILEPSY ED Provider: Karley Mae Discharge Problem: Alcohol withdrawal Forms Stand Alone Forms: My [facility] Prescriptions Prescriptions: No Action lamotrigine [Lamictal] 150 mg tablet 150 mg PO BID fluocinonide 0.05 % cream 1 applic topical BID PRN (Reason: Rash) Rx Instructions: Apply to areas of the trunk and extremities twice daily x 2 weeks as directed. clonidine HCl 0.1 mg tablet 0.2 mg PO BID lisinopril 20 mg tablet 20 mg PO BID folic acid 1 mg tablet 1 mg PO DAILY multivitamin Tablet 1 tab PO DAILY thiamine HCl (vitamin B1) 100 mg Tablet 100 mg PO QAM Qty: 0 0RF ibuprofen [Advil] 200 mg Tablet 200 mg PO Q6H PRN (Reason: Pain) Referrals Referrals: Luis Antonio Guevara [Primary Care Provider] -
[2023-07-26 08:11] LABS: Basophils # (auto) 0.01 K/uL (0.00-0.20); Basophils % (auto) 0.2 %; Hematocrit (blood only) 36.3 % (42.0-52.0); Hemoglobin 12.8 g/dl (14.0-18.0); Immature Granulocytes # (auto) 0.01 K/uL (0.01-0.20); Immature Granulocytes % (auto) 0.2 %; Lymphocytes # (auto) 0.58 K/uL (1.20-3.40); Lymphocytes % (auto) 9.8 %; Mean Corpuscular Hemoglobin 35.8 pg (25.0-34.0); Mean Corpuscular Hgb Conc 35.3 g/dL (32.0-36.0); Mean Corpuscular Volume 101.4 fL (80.0-100.0); Mean Platelet Volume 11.3 fL (9.4-12.4); Monocytes # (auto) 0.57 K/uL (0.11-0.59); Monocytes % (auto) 9.6 %; Neutrophils # (auto) 4.77 K/uL (1.40-6.50); Neutrophils % (auto) 80.2 %; Platelet Count 58 K/uL (130-400); RDW Coefficient of Variation 13.2 % (11.5-14.5); RDW Standard Deviation 49.1 fL (36.4-46.3); Red Blood Count 3.58 M/uL (4.70-6.10); White Blood Count 5.94 K/ul (4.8-10.8)
[2023-07-26] MEDS: MULTI-VITAMIN INFUSION 10 ML, THIAMINE HCL 100 MG, FOLIC ACID 1 MG in SODIUM CHLORIDE 0... IV ONE (08:13)
[2023-07-26] MEDS: LORazepam 2 MG in SYRINGE 1 ML IV ONE (08:13)
[2023-07-26] MEDS: SODIUM CHLORIDE 0.9% 1,000 ML IV SCH (08:13)
[2023-07-26 08:24] LABS: Albumin Globulin Ratio 1.3 (0.9-2); Albumin Level 4.7 gm/dl (3.4-5.0); BUN Creatinine Ratio 16.3 (10-20); Calcium 9.8 mg/dl (8.6-10.3); Creatinine Clr Calc Pharmacy 78.5 ml/min; Est GFR (African American) 76.6 ml/min; Est GFR (Non-African American) 66.1 ml/min; Globulin 3.6 gm/dl (2.5-4.0); Magnesium 1.9 mg/dl (1.7-2.4); Potassium 3.5 mmol/L (3.5-5.1); Total Protein 8.3 gm/dl (6.0-8.3)
[2023-07-26 08:31] LABS: INR 1.1 (0.9-1.1); Prothrombin Time 12.1 Seconds (9.0-12.0)
[2023-07-26 08:52] LABS: Thyroid Stimulating Hormone 2.454 uIu/ml (0.300-4.500)
[2023-07-26] MEDS ORDERED: PHENobarbital PO Alcohol Withdrawal PO STA (10:00)
[2023-07-26] MEDS ORDERED: PHENobarbital sodium 65 MG/ML VIAL IV PRN (10:15)
--- NOTE | 2023-07-26 10:18 | History & Physical Report ---
Date of Service July 26, 2023 Assessment & Plan (1) Alcohol abuse with withdrawal: Plan: 48 y/o man with history of severe alcohol use disorder, multiple admissions for alcohol withdrawal, alcoholic liver disease, seizure disorder admitted with acute alcohol withdrawal and dehydration due to recurrent nausea and vomiting Alcohol withdrawal - history of severe withdrawal requiring ICU admission in past. Treated with IV lorazepam in ED -monitor AWSS -wide awake after 3 mg IV lorazepam by ED and remains tremulous, tachycardic and hypertensive but less so -treat with phenobarbital protocol - start with 260 mg IV loading dose then PRN IV doses today, oral phenobarbital taper following that. HR/BP improved after phenobarbital load. Severe alcohol use disorder -cessation counseling -enquire whether he would be amenable to MAD (naltrexone etc) Dehydration due to alcohol withdrawal and associated vomiting. Nausea/vomiting may have been entirely related to withdrawal and no nausea at this time. -getting banana bag from ED -continue IV fluids with LR and antiemetics Seizure history - at least some, maybe all seizures related to alcohol withdrawal -phenobarbital as above -continue lamotrigine (2) Alcoholic liver disease: Plan: Some component of underlying cirrhosis. Bilirubin was normal 07/22, 07/23 but prior to that always elevated at 1.2-3 since 2020. Platelet count has been c onsistently low as well. AST/ALT chronically elevated CT abdomen 06/13/23 - liver appeared steatotic and also with nodularity suggestive of cirrhosis. Spleen normal size with perisplenic and perigastric varices. Esophageal varices and recanalization of umbilical vein indicative of portal hypertension. No ascites. -would benefit from gastroenterology follow up, EGD screening for varices, serial US imaging to screen for hepatoma. consider adding nadolol/propranolol May have alcoholic hepatitis at this time with elevated bilirubin, elevated AST/ALT, normal INR -supportive care (3) Thrombocytopenia: Plan: Secondary to direct toxic effect of alcohol on bone marrow VS portal hypertension (though no splenomegaly) -monitor platelet count with CBC Macrocytic anemia -replace thiamine, folate (4) Hypertension: Plan: Antihypertensives on home med list: clonidine 0.1 bid, lisinopril 20 mg daily - states he is not taking lisinopril -resume when tolerating po -consider propranolol/nadolol (rather than lisinopril) because of EVs Plan DVT ppx - SCDs (low risk, thrombocytopenic). Start chemoprophylaxis if hospitalized more than a few days or if nonambulatory History of Present Illness Chief Complaint: alcohol withdrawal - shakes, nausea/vomiting Primary Care Provider: Luis Antonio Guevara 48 y/o man with history of severe alcohol use disorder, multiple admissions for alcohol withdrawal, alcoholic liver disease, seizure disorder Discharged 06/14/23 admission was for alcohol withdrawal Seen in ED twice this week for intoxication. BAL 455, 354. States his last drink was Friday (5 days ago) and that he wants to quit drinking and detox. Has never tried MAT for AUD. last several days has had shakes, nausea and vomiting, unable to keep anything down. Feels much better after lorazepam 3 mg IV given in ED. Still has shakes but improved, nausea/vomiting resolved, denies any abdominal pain. No coughing or dyspnea. No dysuria or urinary frequency. No skin or joint problems. Allergies Allergy/AdvReac Type Severity Reaction Status Date / Time No Known Allergies Allergy Mild Verified 07/26/23 08:27 Home Medications Medication Instructions Recorded Confirmed Type lamotrigine 150 mg tablet 150 mg PO BID 01/13/21 07/26/23 History (Lamictal) clonidine HCl 0.1 mg tablet 0.2 mg PO BID 11/11/21 07/26/23 History folic acid 1 mg tablet 1 mg PO DAILY 11/11/21 07/26/23 History lisinopril 20 mg tablet 20 mg PO BID 11/11/21 07/26/23 History fluocinonide 0.05 % topical cream 1 applic topical BID PRN Rash 01/29/23 07/26/23 History multivitamin 1 tab PO DAILY 06/11/23 07/26/23 History thiamine HCl (vitamin B1) 100 mg 100 mg PO QAM #0 tabs 06/14/23 07/26/23 Rx tablet ibuprofen 200 mg tablet (Advil) 200 mg PO Q6H PRN Pain 07/26/23 07/26/23 History Past Med/Surg History Problem List (Updated 07/26/23 @ 11:07 by Karley Mae MD) Hypertension Alcohol abuse with withdrawal (Acute) Alcohol abuse (Acute) Pancytopenia Abnormal LFTs (Acute) Alcohol intoxication (Acute) Vomiting (Acute) Tachycardia (Acute) Alcohol withdrawal (Acute) Delirium tremens Nausea (Acute) Delirium tremens (Acute) Seizures (~11/16/21) Seizure (Acute) Thrombocytopenia (Acute) Elevated LFTs (Acute) CHI (closed head injury) (Acute) Alcoholic liver disease Hepatic encephalopathy Hypomagnesemia (Acute) Abnormal LFTs DVT prophylaxis Thrombocytopenia (Acute) High anion gap metabolic acidosis Hypokalemia Alcohol withdrawal seizure (Acute) Essential hypertension Alcoholism (Acute) Alcohol withdrawal (Acute) Medical History (Updated 07/26/23 @ 11:07 by Karley Mae MD) Seizure Alcohol abuse Cirrhosis Depression Constipation Physical deconditioning Metabolic encephalopathy Surgical History No pertinent past surgical history Family History Father Skin cancer of face Denies family history of Alcoholism Seizure disorder Social History Smoking Status: Never smoker Tobacco Type: Cigarettes Cigarettes Per Day: 1/2 pack per day; Second Hand Exposure: No; Do You Dip or Chew Tobacco: No; Hx Alcohol Use: Yes Alcohol type: wine Alcohol type Comment: DAILY consumption, mixture of bottle of wine, bottle of liquor, and/or beer Hx Substance Use: No Preferred Language: Amharic Communication Ability: Effective Toolroom Clerk Required: No Beliefs That Will Affect Care: None marital status: Single marital status details: x 2 Current Living Situation: Parent Current Living Situation Comment: lives w/ father in [place] current occupational status: 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 Clear to auscultation bilaterally. No RRW Heart: Regular rate and rhythm, no murmurs. No JVD Abdomen: Soft, nontender, nondistended. Bowel sounds present. Extremities: Warm, dry, well-perfused. No extremity edema. skin warm and slightly damp, no rashes Neuro: Alert and oriented x 4, face symmetric, moves 4 extremities well, tremulous Psych: Normal affect and behavior Results & Data Results & Data Vital Signs (Past 12 Hours) Vital Signs Temp Pulse Resp BP BP BP Pulse Ox 07/26/23 09:03 154/103 H 94 07/26/23 09:00 97 H 94 07/26/23 09:00 154/103 H 07/26/23 08:50 27 H 95 07/26/23 08:40 103 H 37 H 93 07/26/23 08:30 102 H 28 H 94 07/26/23 08:20 90 21 94 07/26/23 08:16 147/91 H 07/26/23 08:16 98 H 21 95 07/26/23 08:10 102 H 26 H 94 07/26/23 08:00 103 H 26 H 94 07/26/23 07:57 105 H 07/26/23 07:50 106 H 96 07/26/23 07:40 108 H 21 96 07/26/23 07:35 104 H 25 H 95 07/26/23 07:20 94 07/26/23 07:06 36.9 C 104 H 20 164/88 H 98 07/26/23 07:03 18 162/98 H 95 O2 Del Method 07/26/23 09:03 Room Air 07/26/23 09:00 07/26/23 09:00 07/26/23 08:50 07/26/23 08:40 07/26/23 08:30 07/26/23 08:20 07/26/23 08:16 07/26/23 08:16 07/26/23 08:10 07/26/23 08:00 07/26/23 07:57 07/26/23 07:50 07/26/23 07:40 07/26/23 07:35 07/26/23 07:20 Room Air 07/26/23 07:06 Room Air 07/26/23 07:03 Laboratory Results 07/26/23 Range/Units Unknown WBC 5.94 (4.8-10.8) K/ul RBC 3.58 L (4.70-6.10) M/uL Hgb 12.8 L (14.0-18.0) g/dl Hct 36.3 L (42.0-52.0) % MCV 101.4 H (80.0-100.0) fL MCH 35.8 H (25.0-34.0) pg MCHC 35.3 (32.0-36.0) g/dL RDW Std Deviation 49.1 H (36.4-46.3) fL RDW Coeff of Amena 13.2 (11.5-14.5) % Plt Count 58 L (130-400) K/uL MPV 11.3 (9.4-12.4) fL Immature Gran % (Auto) 0.2 % Neut % (Auto) 80.2 % Lymph % (Auto) 9.8 % [place] % (Auto) 9.6 % Eos % (Auto) 0.0 % Baso % (Auto) 0.2 % Neut # (Auto) 4.77 (1.40-6.50) K/uL Lymph # (Auto) 0.58 L (1.20-3.40) K/uL [place] # (Auto) 0.57 (0.11-0.59) K/uL Eos # (Auto) 0.00 (0.00-0.50) K/uL Baso # (Auto) 0.01 (0.00-0.20) K/uL Immature Gran # (Auto) 0.01 (0.01-0.20) K/uL PT 12.1 H (9.0-12.0) Seconds INR 1.1 (0.9-1.1) Sodium 130 L (136-145) mmol/L Potassium 3.5 (3.5-5.1) mmol/L Chloride 95 L (98-107) mmol/L Carbon Dioxide 22 (21-32) mmol/L Anion Gap 13 H (3-11) BUN 21 (6-23) mg/dl Creatinine 1.29 (0.6-1.4) mg/dl Est Cr Clr Drug Dosing 78.5 ml/min Est GFR ( Amer) 76.6 ml/min Est GFR (Non-Af Amer) 66.1 ml/min BUN/Creatinine Ratio 16.3 (10-20) Glucose 128 H (70-99(Fasting)) mg/dl Calcium 9.8 (8.6-10.3) mg/dl Magnesium 1.9 (1.7-2.4) mg/dl Total Bilirubin 2.0 H (0.2-1.0) mg/dl AST 151 H (13-39) U/L ALT 75 H (7-52) U/L Alkaline Phosphatase 102 (34-104) U/L Total Protein 8.3 (6.0-8.3) gm/dl Albumin 4.7 (3.4-5.0) gm/dl Globulin 3.6 (2.5-4.0) gm/dl Albumin/Globulin Ratio 1.3 (0.9-2) TSH 2.454 (0.300-4.500) uIu/ml Ethyl Alcohol mg/dL < 10.0 (<10.0) mg/dl ECG Additional Comments: personally reviewed tracing - sinus tachycardia, no acute ischemic changes PG Care Time/CCT Total # of Minutes Spent Total Time Spent with Patient: Total time spent is greater than 50% in coordination of care (as documented) at patient's floor/unit and/or counseling patient: Coding Level of Care Code 55198 INT INP/OBS CARE 75MIN Diagnoses Alcohol abuse with withdrawal F10.139 Alcoholic liver disease K70.9 Thrombocytopenia D69.6 Hypertension I10
[2023-07-26] MEDS: PHENobarbital sodium 65 MG/ML VIAL IV STA ×2 (10:49→10:52)
[2023-07-26 11:11] LABS: Appearance Urine Clear (Clear); Bacteria Urine Automated None Seen (None Seen); Bilirubin Urine Negative (Negative); Blood Urine 3+ (Negative); Cast Urine Automated 0-2 /lpf (0-2); Color Urine Yellow; Epithelial Cell Urine Auto 0-2 /hpf (0-2); Glucose Urine UA Negative (Negative); Ketones Urine 1+ (Negative); Leukocyte Esterase Urine Negative (Negative); Nitrite Urine Negative (Negative); Protein Urine 1+ (Negative); RBC Urine Automated >20 /hpf (0-2); Specific Gravity Urine 1.012 (1.000-1.030); Urobilinogen Urine Negative (Negative); WBC Urine Automated 0-5 /hpf (0-5); pH Urine 6.5 (4.5-7.5)
[2023-07-26] MEDS ORDERED: ONDANSETRON INJ 2 MG/ML 2 ML VIAL IV PRN (11:51)
[2023-07-26] MEDS ORDERED: MELATONIN 3 MG TAB PO PRN (11:51)
[2023-07-26] MEDS ORDERED: ALUMINUM/MAGNESIUM SUSP 30 ML UDC PO PRN (11:51)
[2023-07-26] MEDS: cloNIDine HCL 0.1 MG TAB PO SCH (13:08)
[2023-07-26] MEDS: LACTATED RINGER'S 1,000 ML IV SCH (13:08)
[2023-07-26] MEDS: lamoTRIgine 100 MG TAB PO SCH (21:29)
[2023-07-27] MEDS: PHENobarbitaL 30 MG TAB PO SCH (04:25)
[2023-07-27] MEDS: PHENobarbital sodium 65 MG/ML VIAL IV PRN (04:26)
--- NOTE | 2023-07-27 08:50 | Electrocardiogram Report ---
Test Reason : Blood Pressure : / mmHG Vent. Rate : 104 BPM Atrial Rate : 104 BPM P-R Int : 134 ms QRS Dur : 094 ms QT Int : 356 ms P-R-T Axes : 034 004 030 degrees QTc Int : 468 ms Sinus tachycardia Left atrial enlargement Borderline ECG When compared with ECG of 24-JUL-2023 02:03, Vent. rate has increased BY 39 BPM Confirmed by Hai Torres ([id number]) on 07/27/2023 8:49:48 AM Referred By: REFERRED SELF Confirmed By:Hai Torres
[2023-07-27] MEDS: MULTIVITAMIN TAB PO SCH (08:56)
[2023-07-27] MEDS: THIAMINE HCL 100 MG TAB PO SCH (08:56)
[2023-07-27] MEDS: FOLIC ACID 1 MG TAB PO SCH (08:56)
[2023-07-27] MEDS: PHENobarbital sodium 65 MG/ML VIAL IV STA (10:32)
[2023-07-27] MEDS: OLANZapine ZYDIS 5 MG ORALLY DIS. TAB PO PRN (11:06)
--- NOTE | 2023-07-27 13:06 | Hospitalist Progress Note ---
Date of Service July 27, 2023 Assessment & Plan (1) Alcohol abuse with withdrawal: Plan: 48 y/o man with history of severe alcohol use disorder, multiple admissions for alcohol withdrawal, alcoholic liver disease, seizure disorder admitted with acute alcohol withdrawal and dehydration due to recurrent nausea and vomiting Alcohol withdrawal - history of severe withdrawal requiring ICU admission in past. Treated with IV lorazepam in ED -monitor AWSS -treat with phenobarbital - under-dosed based on protocol, ordered 130 mg IV x 1 this am for AWSS 9 (despite 65 mg IV 4 AM). Brings total dose IV since yesterday up to 455 mg (whereas weight-based load of 8 mg/kg would have been much more - 750 mg). -added prn olanzapine for agitation/anxiety when phenobarbital not indicated based on AWSS Severe alcohol use disorder -cessation counseling -enquire whether he would be amenable to MAD (naltrexone etc) Dehydration due to alcohol withdrawal and associated vomiting. Nausea/vomiting may have been entirely related to withdrawal and no nausea at this time. -banana bag, IV fluids with LR and PRN antiemetics -mildly hyponatremic at 130 - recheck in am Seizure history - at least some, maybe all seizures related to alcohol withdrawal -phenobarbital as above -continue lamotrigine (2) Alcoholic liver disease: Plan: Some component of underlying cirrhosis. Bilirubin was normal 07/22, 07/23 but prior to that always elevated at 1.2-3 since 2020. Platelet count has been consistently low as well. AST/ALT chronically elevated CT abdomen 06/13/23 - liver appeared steatotic and also with nodularity suggestive of cirrhosis. Spleen normal size with perisplenic and perigastric varices. Esophageal varices and recanalization of umbilical vein indicative of portal hypertension. No ascites. -would benefit from gastroenterology follow up, EGD screening for varices, serial US imaging to screen for hepatoma. consider adding nadolol/propranolol May have alcoholic hepatitis at this time with elevated bilirubin, elevated AST/ALT, normal INR -supportive care -repeat CMP in 1-2d (3) Thrombocytopenia: Plan: Secondary to direct toxic effect of alcohol on bone marrow VS portal hypertension (though no splenomegaly) -monitor platelet count with CBC Macrocytic anemia -replace thiamine, folate (4) Hypertension: Plan: Antihypertensives on home med list: clonidine 0.1 bid, lisinopril 20 mg daily - states he is not taking lisinopril -resume when tolerating po -consider propranolol/nadolol (rather than lisinopril) because of EVs Plan DVT ppx - SCDs (low risk, thrombocytopenic). Start chemoprophylaxis if hospitalized more than a few days or if nonambulatory Admission and Anticipated Discharge Date Admission Date: July 26, 2023 Subjective is confused and wandering around the nursing unit but not agitated and is redirectable Physical Exam 2 Physical Exam: PHYSICAL EXAMINATION Last 24h vital signs reviewed, see documentation in flowsheet General: sitting up on ED stretcher awake and alert HEENT: Normocephalic, atraumatic, pupils round and equal, sclerae anicteric, no conjunctival injection, moist mucus membranes Lungs: Normal respiratory effort. Clear to auscultation bilaterally. No RRW Heart: Regular rate and rhythm, no murmurs. No JVD Abdomen: Soft, nontender, nondistended. Bowel sounds present. Extremities: Warm, dry, well-perfused. No extremity edema. skin warm and slightly damp, no rashes Neuro: confused but partially oriented to situation, face symmetric, moves 4 extremities well, remains tremulous Psych: Normal affect and impulsive behavior Results & Data Results & Data Vital Signs (Past 12 Hours) Vital Signs Temp Pulse Pulse Resp BP BP Pulse Ox 07/27/23 10:59 36.8 C 81 18 153/91 H 97 07/27/23 10:32 82 24 128/82 07/27/23 07:44 82 07/27/23 07:09 36.6 C 71 18 150/87 H 97 07/27/23 04:26 68 20 151/97 H 07/27/23 02:32 36.7 C 79 20 156/100 H 97 O2 Del Method 07/27/23 10:59 Room Air 07/27/23 10:32 07/27/23 07:44 07/27/23 07:09 Room Air 07/27/23 04:26 07/27/23 02:32 Room Air Laboratory Results 07/26/23 Unknown 07/26/23 Unknown PG Care Time/CCT Total # of Minutes Spent Total Time Spent with Patient: Total time spent is greater than 50% in coordination of care (as documented) at patient's floor/unit and/or counseling patient: Coding Level of Care Code 45242 SUB INP/OBS CARE 3/50MIN Diagnoses Alcohol abuse with withdrawal F10.139 Alcoholic liver disease K70.9 Thrombocytopenia D69.6 Hypertension I10
[2023-07-28] MEDS: OLANZapine ZYDIS 5 MG ORALLY DIS. TAB PO STA (02:04)
[2023-07-28] MEDS: LORazepam 1 MG in SYRINGE 0.5 ML IV STA (02:10)
[2023-07-28] MEDS ORDERED: PHENobarbitaL sodium 65 MG in SYRINGE 0 ML IV STA (03:50)
[2023-07-28] MEDS: PHENobarbital sodium 65 MG/ML VIAL IV STA ×3 (03:59→07:10)
[2023-07-28] MEDS ORDERED: Nursing to Pharmacy Communication SCH (04:15)
[2023-07-28] MEDS: NICOTINE 14 MG/24 HR PATCH TD STA (04:16)
[2023-07-28] MEDS: PHENobarbitaL 30 MG TAB PO SCH ×2 (05:28→07:37)
[2023-07-28] MEDS: LORazepam 3 MG in SYRINGE 1.5 ML IV STA ×2 (05:32→08:26)
--- NOTE | 2023-07-28 05:57 | Communication Note ---
Date of Service: July 28, 2023 Patient increasingly agitated, disorientated, hallucinating, and erratic overnight. Presented to bedside x 4 due to nursing concerns of agitation and unsafe behaviors, attempts to redirect patient only briefly successful. AWSS scores rising despite scheduled Phenobarbital. 1:1 sitter and nursing remained at bedside and was unable to redirect patient. Addition of Zyprexa 5 mg, Zyprexa 5 mg + Ativan 1 mg, as well as additional Phenobarbital were unsuccessful at calming patient's unsafe behaviors. Addition of Phenobarbital seemed to increase patient's agitation and he began jumping on his bed and attempting to run through the hallways. Decision was made to transition patient from Phenobarbital to Ativan as patient has failed on current regimen. Patient was given 3 mg IV Ativan followed by 2 mg IV Ativan Q6h scheduled. Patient's plan should be adjusted by day team pending clinical response to higher dose Ativan therapy. ICU is aware of need for potential transfer. Resident Activity Tracking Resident Involvement: Resident Care Provided Care Provided: Adult Hospital Medicine
[2023-07-28] MEDS: OLANZapine 10 MG/2.1 ML SDV IM STA (06:29)
[2023-07-28] MEDS: PHENobarbital sodium 130 MG/ML VIAL ONE (06:38)
--- NOTE | 2023-07-28 06:39 | Critical Care Consultation ---
Date of Consultation July 28, 2023 Assessment & Plan (1) Alcohol abuse with withdrawal: (2) Delirium tremens: (3) Thrombocytopenia: (4) Essential hypertension: Plan ICU CONSULT NOTE FORMAT: Reason Critically Ill: 48 YOM with hx of alcohol withdrawl. Admit to ICU for phenobarbital dosing and monitoring. Neuro - ETOH withdrawl CAM ICU: NEGATIVE - Primarily at this time appears ETOH - however still need to consider NARD- will up titrate his phenobarb consider antipsychotic if continues despite adequate dosing - Consider benzos as needed for uncontrolled symptoms - Pysch consultation Cardiac - HTN - Continue with clonidine oral as this will help with above - Continue Lisinopril - ECG now eval QTC Respiratory - No acute needs GI - No acute needs - Thiamine and Folate RENAL/LYTES - No acute needs - Follow electrolytes - No acute needs ENDO - No acute needs HEME -Thrombocytopenia/macrocytic anemia - likely secondary to ETOH abuse and marrow suppression ID - No concern a tthis time for Infective process LINES/IV ACCESS - PIV Continue use of these lines DVT PROPHYLAXIS - SCDS DISPO: ICU until better control of symptoms I have personally spent 40 minutes of critical care time in the direct management of this patient. This is a life/limb threatening event. This includes time spent evaluating patient, direct bedside care, chart review, placing orders, interpretation of diagnostic studies, discussion with consultants, patient, and family members, as well as other required patient management activities. This time is exclusive of all separately billable procedures, and teaching time and separate from and in addition to any other critical care service time. Thank you for allowing us to participate in the care of this patient. Please refer to my attending physician's documentation for any further recommendations. History of Present Illness Reason for Consultation: alcohol withdrawl Requesting Physician: Mike Lombardo MD Attending Physician: Yesenia Hall MD History of Present Illness 48 YOM with history of ETOH withdraw. Patient was admitted on 07/26/23- appears he was started on Phenobarbital with 260mg IV load dose and on a taper following this. He has received ~ 4.5 mg/kg of Phenobarbital at this time and remains with behavioral symptoms as well as physiologic symptoms of withdraw. He appears to also been have receiving zyprexa for withdraw symptoms when outside of CIWAA scores. Either way patient is still exhibiting signs. Currently will transfer to the ICU will provide 130mg IV of Phenobarb at this time. Following dose will re evaluate and if remains agitated will repeat with another 130mg IV of Phenobarbitol. Goal would to get patient to 8-12 mg/kg of phenobarb. Would also benefit from psych consult. Consider adding precedex if needed, however would like to stick with one agent. CODE: FULL Allergies Allergy/AdvReac Type Severity Reaction Status Date / Time No Known Allergies Allergy Mild Verified 07/26/23 08:27 Home Medications Medication Instructions Recorded Confirmed Type lamotrigine 150 mg tablet 150 mg PO BID 01/13/21 07/26/23 History (Lamictal) clonidine HCl 0.1 mg tablet 0.2 mg PO BID 11/11/21 07/26/23 History folic acid 1 mg tablet 1 mg PO DAILY 11/11/21 07/26/23 History lisinopril 20 mg tablet 20 mg PO BID 11/11/21 07/26/23 History fluocinonide 0.05 % topical cream 1 applic topical BID PRN Rash 01/29/23 07/26/23 History multivitamin 1 tab PO DAILY 06/11/23 07/26/23 History thiamine HCl (vitamin B1) 100 mg 100 mg PO QAM #0 tabs 06/14/23 07/26/23 Rx tablet ibuprofen 200 mg tablet (Advil) 200 mg PO Q6H PRN Pain 07/26/23 07/26/23 History Patient History Medical History Seizure Alcohol abuse Cirrhosis Depression Constipation Physical deconditioning Metabolic encephalopathy Surgical History No pertinent past surgical history Family History Father Skin cancer of face Denies family history of Alcoholism Seizure disorder Social History Smoking Status: Current every day smoker Tobacco Type: Cigarettes Cigarettes Per Day: 1/2 pack per day; Second Hand Exposure: No; Do You Dip or Chew Tobacco: No; Hx Alcohol Use: Yes Alcohol type: wine Alcohol type Comment: DAILY consumption, mixture of bottle of wine, bottle of liquor, and/or beer Hx Substance Use: No Preferred Language: Qatari Communication Ability: Effective Scrap Hoist Operator Required: No Beliefs That Will Affect Care: None marital status: Single marital status details: x 2 Current Living Situation: Parent Current Living Situation Comment: lives w/ father in [place] current occupational status: 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 [place] How many Children do You have: 0 Feels Safe at Home: Yes Assistive Devices: None Review of Systems Review of Systems: unable to complete Physical Exam Physical Exam: PHYSICAL EXAM: General: awake, alert,agitated with hallucinations/delusions Head: Normocephalic, atraumatic ENT: PERRLA, EOMI, no pharyngeal exudate, mucous membranes moist Neuro: AAO x 3, speech clear and pressured and in appropriate, strength intact bilaterally 5/5, sensation intact and equal all extremities and dermatomes, Chest: equal rise and fall of the chest, no accessory muscle use,, Clear to auscultation, on room air, Cardiac: Regular rate and rhythm, telemetry reviewed- sinus tachycardia, skin warm dry, cap refill <3 seconds, peripheral pulses +2 no JVD, no murmur, GI: NABS x 4 quadrants, soft, nontender to palpation, no rebound, guarding or tenderness : Spontaneously voiding, no pain, no CVA tenderness, Extremities: Normal inspection, no peripheral edema or erythema, calfs nontender to palpation Psych: agitated, wandering thoughts and speech. Skin: no rash or erythema Results & Data Results & Data Vital Signs (Past 12 Hours) Vital Signs Temp Pulse Pulse Resp BP BP Pulse Ox 07/28/23 05:46 182/111 H 07/28/23 05:46 90 21 96 07/28/23 05:45 81 25 H 97 07/28/23 05:36 149/108 H 07/28/23 05:36 98 H 17 96 07/28/23 05:30 109 H 21 07/28/23 05:30 164/134 H 07/28/23 05:16 83 24 96 07/28/23 05:16 162/106 H 07/28/23 05:15 96 H 18 93 07/28/23 05:08 86 35 H 97 07/28/23 05:08 189/125 H 07/28/23 05:01 186/107 H 07/28/23 05:01 81 24 97 05/20/24 05:00 94 H 24 97 07/28/23 04:45 167/109 H 07/28/23 04:45 81 20 95 07/28/23 04:30 137/98 07/28/23 04:30 78 25 H 96 07/28/23 04:16 102 H 14 97 07/28/23 04:16 160/99 H 07/28/23 04:15 101 H 24 96 07/28/23 04:00 153/98 H 07/28/23 04:00 90 20 07/28/23 03:48 145/94 H 07/28/23 03:48 77 16 95 07/28/23 03:45 81 21 95 07/28/23 03:30 83 26 H 95 07/28/23 03:21 88 23 151/98 H 07/28/23 03:15 116 H 20 07/28/23 03:00 119 H 29 H 07/28/23 02:45 118 H 39 H 07/28/23 02:30 104 H 20 07/28/23 02:15 99 H 19 07/28/23 02:00 84 8 L 07/28/23 01:45 96 H 18 07/28/23 01:30 78 4 L 07/28/23 01:15 75 8 L 07/28/23 01:00 86 30 H 07/28/23 00:45 77 0 L 07/28/23 00:30 85 0 L 07/28/23 00:15 83 3 L 07/28/23 00:00 100 H 29 H 07/27/23 23:45 107 H 36 H 07/27/23 23:30 86 30 H 99 07/27/23 23:30 171/105 H 07/27/23 23:15 170/100 H 07/27/23 23:15 89 26 H 97 07/27/23 23:00 83 28 H 98 07/27/23 23:00 166/101 H 07/27/23 22:45 102 H 19 95 07/27/23 22:45 164/123 H 07/27/23 22:45 88 07/27/23 22:31 90 19 99 07/27/23 22:31 157/100 H 07/27/23 22:30 94 H 28 H 97 07/27/23 22:30 37.1 C 88 26 H 157/100 H 97 07/27/23 22:15 89 29 H 96 07/27/23 22:15 162/103 H 07/27/23 22:00 149/87 H 07/27/23 22:00 98 H 21 97 07/27/23 21:45 166/95 H 07/27/23 21:45 108 H 21 96 07/27/23 21:38 97 H 24 96 07/27/23 21:37 92 H 27 H 98 07/27/23 21:36 89 27 H 96 07/27/23 21:35 103 H 21 99 07/27/23 21:34 91 H 19 95 07/27/23 21:33 93 H 25 H 07/27/23 21:32 168/98 H 07/27/23 21:32 91 H 28 H 07/27/23 21:31 105 H 25 H 07/27/23 21:30 93 H 33 H 07/27/23 21:25 90 07/27/23 18:55 36.8 C 92 H 18 174/110 H 98 O2 Del Method 07/28/23 05:46 07/28/23 05:46 Room Air 07/28/23 05:45 Room Air 07/28/23 05:36 07/28/23 05:36 Room Air 07/28/23 05:30 07/28/23 05:30 07/28/23 05:16 Room Air 07/28/23 05:16 07/28/23 05:15 Room Air 07/28/23 05:08 07/28/23 05:08 07/28/23 05:01 07/28/23 05:01 07/28/23 05:00 07/28/23 04:45 07/28/23 04:45 07/28/23 04:30 07/28/23 04:30 07/28/23 04:16 Room Air 07/28/23 04:16 07/28/23 04:15 Room Air 07/28/23 04:00 07/28/23 04:00 07/28/23 03:48 07/28/23 03:48 Room Air 07/28/23 03:45 Room Air 07/28/23 03:30 07/28/23 03:21 07/28/23 03:15 07/28/23 03:00 07/28/23 02:45 07/28/23 02:30 07/28/23 02:15 07/28/23 02:00 07/28/23 01:45 07/28/23 01:30 07/28/23 01:15 07/28/23 01:00 07/28/23 00:45 07/28/23 00:30 07/28/23 00:15 07/28/23 00:00 07/27/23 23:45 07/27/23 23:30 07/27/23 23:30 07/27/23 23:15 07/27/23 23:15 07/27/23 23:00 07/27/23 23:00 07/27/23 22:45 Room Air 07/27/23 22:45 07/27/23 22:45 07/27/23 22:31 Room Air 07/27/23 22:31 07/27/23 22:30 07/27/23 22:30 Room Air 07/27/23 22:15 07/27/23 22:15 07/27/23 22:00 07/27/23 22:00 Room Air 07/27/23 21:45 07/27/23 21:45 Room Air 07/27/23 21:38 07/27/23 21:37 07/27/23 21:36 07/27/23 21:35 07/27/23 21:34 07/27/23 21:33 07/27/23 21:32 07/27/23 21:32 07/27/23 21:31 07/27/23 21:30 07/27/23 21:25 07/27/23 18:55 Room Air Coding Level of Care Code 17488 CRITICAL CARE 1ST 30-74M Diagnoses Alcohol abuse with withdrawal F10.139 Delirium tremens F10.231 Thrombocytopenia D69.6 Essential hypertension I10
[2023-07-28] MEDS ORDERED: Ativan IV Alcohol Withdrawal--Active Protocol IV PRN (07:56)
[2023-07-28] MEDS ORDERED: STAT IV Infusion **Titration per Protocol STA (08:14)
[2023-07-28 08:31] LABS: BUN Creatinine Ratio 13.4 (10-20); Calcium 9.3 mg/dl (8.6-10.3); Creatinine Clr Calc Pharmacy 104.4 ml/min; Est GFR (African American) 108.1 ml/min; Est GFR (Non-African American) 93.2 ml/min; Magnesium 1.6 mg/dl (1.7-2.4)
--- NOTE | 2023-07-28 09:06 | Electrocardiogram Report ---
Test Reason : Blood Pressure : / mmHG Vent. Rate : 085 BPM Atrial Rate : 085 BPM P-R Int : 140 ms QRS Dur : 094 ms QT Int : 394 ms P-R-T Axes : 056 017 036 degrees QTc Int : 468 ms Normal sinus rhythm Normal ECG When compared with ECG of 26-JUL-2023 07:38, No significant change was found Confirmed by Hai Torres ([id number]) on 07/28/2023 9:06:13 AM Referred By: REFERRED SELF Confirmed By:Hai Torres
[2023-07-28] MEDS: LORazepam 3 MG in SYRINGE 1.5 ML IV PRN (09:14)
[2023-07-28] MEDS: LORazepam 2 MG in SYRINGE 1 ML IV PRN (09:14)
[2023-07-28] MEDS: dexMEDEtomidine 200 MCG/50 ML BAG IV SCH (09:15)
[2023-07-28] MEDS ORDERED: LORazepam 2 MG in SYRINGE 1 ML IV SCH (10:00)
[2023-07-28] MEDS: NICOTINE 14 MG/24 HR PATCH TD SCH (10:55)
[2023-07-28] MEDS: OLANZapine ZYDIS 5 MG ORALLY DIS. TAB PO SCH (10:56)
--- NOTE | 2023-07-28 11:24 | Communication Note ---
Date of Service: July 28, 2023 Patient seen and examined. EMR reviewed. Discussed with overnight critical care FELIX and bedside critical care nurse and on multidisciplinary rounds. Patient was transferred to the ICU early this morning due to alcohol withdrawal with severe agitation. He been intermittently dosed with phenobarbital on the floor. On arrival he became agitated. A code william was called. He was initiated on Precedex and given an additional dose of IV benzodiazepine which has resulted in adequate sedation. Patient has had multiple admissions for alcohol withdrawal and intoxication. Will continue Precedex and benzodiazepines. He appears to have failed Precedex. High-dose thiamine and folate. Discontinue clonidine while he is on Precedex to avoid bradycardia. Initiate ICU electrolyte replacement protocol. Start subcu heparin even given the patient's thrombocytopenia. Will observe in the ICU until he can be safely transition to p.o. medications. Coding Level of Care Code 58980 Prolonged Care (int'l)
[2023-07-28] MEDS: MAGNESIUM SULFATE / D5W 1 GM/100 ML BAG IV SCH (12:29)
[2023-07-28] MEDS: THIAMINE HCL 200 MG in SODIUM CHLORIDE 0.9% 50 ML IV SCH (13:55)
--- NOTE | 2023-07-28 14:37 | Hospitalist Progress Note ---
Date of Service July 28, 2023 Assessment & Plan (1) Alcohol abuse with withdrawal: Plan: 48 y/o man with history of severe alcohol use disorder, multiple admissions for alcohol withdrawal, alcoholic liver disease, seizure disorder admitted with acute alcohol withdrawal and dehydration due to recurrent nausea and vomiting Alcohol withdrawal - history of severe withdrawal requiring ICU admission in past. Treated with IV lorazepam in ED then started on phenobarbital. Did well 07/26 daytime then became severely agitated and delirious last night and transferred to ICU early this AM 6 mg IV lorazepam given early this AM around the time of code felton, precedex drip started with good effect. By my calculation has had 970 mg of phenobarbital thus far. That would be near 8 mg/kg for him but doubt therapeutic ICU team using lorazepam and precedex at this point, following RASS Severe alcohol use disorder -cessation counseling -enquire whether he would be amenable to MAD (naltrexone etc) -on folate and on IV thiamine Dehydration due to alcohol withdrawal and associated vomiting. Nausea/vomiting was entirely related to withdrawal and had resolved after IV fluids and medications in ED. -banana bag given, IV fluids with LR and PRN antiemetics -mildly hyponatremic at 130 - resolved to 136 today after IV fluids Hypokalemia - K 3.0 - replace IV Hypomanesemia - 1.6 - replace IV Daily AM CBC CMP mag Seizure history - at least some, maybe all seizures related to alcohol withdrawal -phenobarbital as above -continue lamotrigine (2) Alcoholic liver disease: Plan: Some component of underlying cirrhosis. Bilirubin was normal 07/22, 07/23 but prior to that always elevated at 1.2-3 since 2020. Platelet count has been consistently low as well. AST/ALT chronically elevated CT abdomen 06/13/23 - liver appeared steatotic and also with nodularity suggestive of cirrhosis. Spleen normal size with perisplenic and perigastric varices. Esophageal varices and recanalization of umbilical vein indicative of portal hypertension. No ascites. -would benefit from gastroenterology follow up, EGD screening for varices, serial US imaging to screen for hepatoma. consider adding nadolol/propranolol May have alcoholic hepatitis at this time with elevated bilirubin, elevated AST/ALT, normal INR -supportive care -repeat CMP in AM (3) Thrombocytopenia: Plan: Secondary to direct toxic effect of alcohol on bone marrow VS portal hypertension (though no splenomegaly) -monitor platelet count with CBC Macrocytic anemia -replace thiamine, folate (4) Hypertension: Plan: Antihypertensives on home med list: clonidine 0.1 bid, lisinopril 20 mg daily - states he is not taking lisinopril -resume when tolerating po -consider propranolol/nadolol (rather than lisinopril) because of EVs Plan DVT ppx - SQ heparin Admission and Anticipated Discharge Date Admission Date: July 26, 2023 Subjective Confused and agitated and thinks he is in a bobsled. Seen during code felton this am. Transferred to ICU early this AM because of severe alcohol withdrawal Physical Exam 2 Physical Exam: PHYSICAL EXAMINATION Last 24h vital signs reviewed, see documentation in flowsheet General: in bed, gets agitated but momentarily redirectable, keeps trying to get up HEENT: Normocephalic, atraumatic, pupils round and equal, sclerae anicteric, no conjunctival injection, moist mucus membranes Lungs: Normal respiratory effort. Clear to auscultation bilaterally. No RRW Heart: Regular rate and rhythm, no murmurs. No JVD Abdomen: Soft, nontender, nondistended. Bowel sounds present. Extremities: Warm, dry, well-perfused. No extremity edema. skin a little damp, no rashes Neuro: confused and no longer oriented to situation, agitated, face symmetric, moves 4 extremities well, tremulous Psych: agitated, impulsive behavior Results & Data Results & Data Vital Signs (Past 12 Hours) Vital Signs Temp Pulse Pulse Resp BP BP Pulse Ox 07/28/23 10:15 72 24 07/28/23 10:00 74 24 07/28/23 09:45 78 27 H 07/28/23 09:30 84 25 H 07/28/23 09:15 33 H 07/28/23 09:12 32 H 07/28/23 09:02 168/127 H 07/28/23 08:00 07/28/23 07:41 126 H 18 07/28/23 07:30 113 H 20 07/28/23 07:11 159/111 H 07/28/23 07:11 107 H 29 H 07/28/23 07:10 130 H 25 H 159/111 H 07/28/23 07:00 133 H 18 07/28/23 06:45 105 H 17 07/28/23 06:45 36.7 C 89 17 151/105 H 94 07/28/23 06:40 151/105 H 07/28/23 06:40 95 H 18 96 07/28/23 06:38 90 16 07/28/23 06:30 88 20 05 06:15 118 H 24 94 07/28/23 06:09 161/104 H 07/28/23 06:09 161/104 H 07/28/23 06:09 94 H 18 97 07/28/23 06:00 117 H 24 96 07/28/23 05:46 182/111 H 07/28/23 05:46 90 21 96 07/28/23 05:45 81 25 H 97 07/28/23 05:36 149/108 H 07/28/23 05:36 98 H 17 96 07/28/23 05:30 109 H 21 07/28/23 05:30 164/134 H 07/28/23 05:16 83 24 96 07/28/23 05:16 162/106 H 07/28/23 05:15 96 H 18 93 07/28/23 05:08 86 35 H 97 07/28/23 05:08 189/125 H 07/28/23 05:01 186/107 H 07/28/23 05:01 81 24 97 07/28/23 05:00 94 H 24 97 07/28/23 04:45 167/109 H 07/28/23 04:45 81 20 95 07/28/23 04:30 137/98 07/28/23 04:30 78 25 H 96 07/28/23 04:16 102 H 14 97 07/28/23 04:16 160/99 H 07/28/23 04:15 101 H 24 96 07/28/23 04:00 153/98 H 07/28/23 04:00 90 20 07/28/23 03:48 145/94 H 07/28/23 03:48 77 16 95 05 03:45 81 21 95 05 03:30 83 26 H 95 05 03:21 88 23 151/98 H 07/28/23 03:15 116 H 20 07/28/23 03:00 119 H 29 H 07/28/23 02:45 118 H 39 H 07/28/23 02:30 104 H 20 Pulse Ox O2 Del Method O2 Del Method 05/20/24 10:15 07/28/23 10:00 07/28/23 09:45 07/28/23 09:30 07/28/23 09:15 07/28/23 09:12 07/28/23 09:02 07/28/23 08:00 95 Room Air 07/28/23 07:41 07/28/23 07:30 07/28/23 07:11 07/28/23 07:11 07/28/23 07:10 07/28/23 07:00 07/28/23 06:45 07/28/23 06:45 Room Air 07/28/23 06:40 07/28/23 06:40 07/28/23 06:38 07/28/23 06:30 07/28/23 06:15 07/28/23 06:09 07/28/23 06:09 07/28/23 06:09 07/28/23 06:00 07/28/23 05:46 07/28/23 05:46 Room Air 07/28/23 05:45 Room Air 07/28/23 05:36 07/28/23 05:36 Room Air 07/28/23 05:30 07/28/23 05:30 07/28/23 05:16 Room Air 07/28/23 05:16 07/28/23 05:15 Room Air 07/28/23 05:08 07/28/23 05:08 07/28/23 05:01 07/28/23 05:01 07/28/23 05:00 07/28/23 04:45 07/28/23 04:45 07/28/23 04:30 07/28/23 04:30 07/28/23 04:16 Room Air 07/28/23 04:16 07/28/23 04:15 Room Air 07/28/23 04:00 07/28/23 04:00 07/28/23 03:48 07/28/23 03:48 Room Air 07/28/23 03:45 Room Air 07/28/23 03:30 07/28/23 03:21 07/28/23 03:15 07/28/23 03:00 07/28/23 02:45 07/28/23 02:30 Laboratory Results 07/26/23 Unknown 07/28/23 07:57 PG Care Time/CCT Total # of Minutes Spent Total Time Spent with Patient: Total time spent is greater than 50% in coordination of care (as documented) at patient's floor/unit and/or counseling patient: Coding Level of Care Code 67163 SUB INP/OBS CARE 3/50MIN Diagnoses Alcohol abuse with withdrawal F10.139 Alcoholic liver disease K70.9 Thrombocytopenia D69.6 Hypertension I10
[2023-07-28] MEDS: POTASSIUM CHLORIDE / WTR 10 MEQ/100 ML PLCT IV SCH (15:40)
[2023-07-28] MEDS: ICU ELECTROLYTE REPLACEMENT PROTOCOL SCH (19:45)
[2023-07-28] MEDS: HEPARIN SOD 5,000 UNIT/0.5 ML VIAL SQ SCH (20:53)
[2023-07-29 06:08] LABS: Albumin Globulin Ratio 1.2 (0.9-2); Albumin Level 3.7 gm/dl (3.4-5.0); BUN Creatinine Ratio 11.4 (10-20); Calcium 8.6 mg/dl (8.6-10.3); Creatinine Clr Calc Pharmacy 128.2 ml/min; Est GFR (African American) 124.8 ml/min; Est GFR (Non-African American) 107.7 ml/min; Globulin 3.2 gm/dl (2.5-4.0); Magnesium 1.9 mg/dl (1.7-2.4); Phosphorus 3.3 mg/dl (2.5-4.9); Potassium 3.9 mmol/L (3.5-5.1); Total Protein 6.9 gm/dl (6.0-8.3)
[2023-07-29 06:20] LABS: Hematocrit (blood only) 31.6 % (42.0-52.0); Hemoglobin 11.1 g/dl (14.0-18.0); Mean Corpuscular Hemoglobin 35.9 pg (25.0-34.0); Mean Corpuscular Hgb Conc 35.1 g/dL (32.0-36.0); Mean Corpuscular Volume 102.3 fL (80.0-100.0); Mean Platelet Volume 11.3 fL (9.4-12.4); Platelet Count 68 K/uL (130-400); RDW Coefficient of Variation 12.7 % (11.5-14.5); RDW Standard Deviation 47.9 fL (36.4-46.3); Red Blood Count 3.09 M/uL (4.70-6.10); White Blood Count 3.59 K/ul (4.8-10.8)
[2023-07-29] MEDS ORDERED: PHENobarbitaL 30 MG TAB PO SCH ×2 (07:00→16:15)
[2023-07-29] MEDS: POTASSIUM CHLORIDE / WTR 10 MEQ/100 ML PLCT IV SCH (07:44)
[2023-07-29] MEDS: MAGNESIUM SULFATE / D5W 1 GM/100 ML BAG IV SCH (07:44)
--- NOTE | 2023-07-29 08:27 | Critical Care Progress Note ---
Date of Service July 29, 2023 Assessment & Plan (1) Alcohol abuse with withdrawal: (2) Delirium tremens: (3) Thrombocytopenia: (4) Essential hypertension: Plan Reason Critically Ill: 48-year-old male with significant past medical history of alcohol abuse, thrombocytopenia, seizure disorder, and essential hypertension who was admitted in the setting of acute alcohol withdrawal requiring escalating doses of phenobarbital without response. Patient eventually transferred to the ICU where he was started on Precedex drip with aliquots of Ativan as needed. NEURO - * CAM ICU: POSITIVE * Alcohol withdrawal: * Patient with known history of alcohol abuse presenting with alcohol w ithdrawal and delirium tremens requiring escalating doses of phenobarbital with transition yesterday to Precedex drip with aliquots of Ativan. * Had large requirement of Ativan overnight. * Will add scheduled Ativan today with hopes to titrate down to off of the Precedex drip. * Patient will likely require ongoing Ativan dosing at least in the acute phase of withdrawal given his significant history of seizure disorder. * No focal neurological findings on exam today. Is somnolent, but arouses does noxious stimuli. * Continue with high-dose thiamine and folic acid. * Seizure disorder: * Continue Lamictal. * Currently monitored as one-to-one, but would watch for any breakthrough seizure activity as patient is certainly high risk at this time. CARDIAC/VASCULAR - * Hypertension: * It appears as though the patient utilizes clonidine 0.2 mg twice daily at home as well as 20 mg lisinopril twice daily. * When he is requiring much less Precedex, can reinstitute his daily home medications. * Monitor on telemetry. RESPIRATORY - * No history of pulmonary disease. * Saturating well on room air. GI/NUTRITION - * Transaminitis: * In the setting of alcohol abuse. * Numbers trending down this morning. RENAL/LYTES - * Hypokalemia: * Continue to replace as needed. - * No concerns at this time. ENDO - * No history of diabetes or thyroid disease. * BSGs per unit protocol. ISS --> gtt per unit policy. HEME - * Thrombocytopenia: * Secondary to bone marrow suppression and the chronic alcoholic. * Platelet count improving today. * Monitor for signs/symptoms of bleeding in a patient that is at risk. ID - * No concerns for infectious contribution at this time. LINES/IV ACCESS - * PIVs x2 DVT PROPHYLAXIS - * Heparin subcutaneous * SCDs I have personally spent 40 minutes of critical care time in the direct management of this patient. This is a life/limb threatening event. This includes time spent evaluating patient, direct bedside care, chart review, placing orders, interpretation of diagnostic studies, discussion with consultants, patient, and family members, as well as other required patient management activities. This time is exclusive of all separately billable procedures, and teaching time and separate from and in addition to any other critical care service time. Thank you for allowing us to participate in the care of this patient. Please refer to my attending physician's documentation for any further recommendations. Admission and Anticipated Discharge Date Admission Date: July 26, 2023 Subjective Patient seen and evaluated at bedside. Somnolent, but does awake to noxious stimuli. Patient did require moderate amount of Ativan last night and return of Precedex drip. Precedex drip currently running at 0.5. Review of Systems Review of Systems: A complete 10 point review of systems was reviewed with the patient with pertinent positives and negatives as per history of present illness. All else were negative. Physical Exam Physical Exam: VITAL SIGNS - Vital signs and nursing notes were reviewed. GENERAL - 48-year-old male appearing his stated age who is in no acute distress. Somnolent but arouses to noxious stimuli. SKIN - Without rashes. HEAD - NC/AT. EYES - PERRL with EOMI bilaterally. Sclera anicteric. NOSE - Midline and without cyanosis. MOUTH/OROPHARYNX - Without perioral cyanosis. NECK - Neck with FROM. LUNGS - Normal vesicular breath sounds CTA B/L. No wheezes, rales, or rhonchi appreciated. CARDIAC - RRR with S1/S2. No murmur, rubs, or gallops appreciated. ABDOMEN - Abdominal contour flat without pulsations or visible masses. BS normoactive all four quadrants. No tenderness, palpable masses, hepatosplenomegaly, or ascites noted. EXTREMITIES - No clubbing or peripheral cyanosis. No pretibial edema present. +3/5 radial and dorsalis pedis pulses palpated throughout. NEUROLOGIC -no focal neurological deficits noted on exam. PSYCH -somnolent, but arouses to noxious stimuli. Still confused. Results & Data Results & Data Vital Signs (Past 12 Hours) Vital Signs Pulse Resp BP Pulse Ox 07/29/23 05:15 54 L 26 H 94 07/29/23 05:00 163/98 H 07/29/23 05:00 53 L 26 H 94 07/29/23 04:45 56 L 26 H 93 07/29/23 04:30 57 L 25 H 93 07/29/23 04:15 55 L 27 H 93 07/29/23 04:00 167/92 H 07/29/23 04:00 55 L 28 H 94 07/29/23 03:45 59 L 27 H 94 07/29/23 03:30 57 L 26 H 93 07/29/23 03:15 56 L 26 H 93 07/29/23 03:00 59 L 27 H 93 07/29/23 03:00 155/97 H 07/29/23 02:45 58 L 24 93 07/29/23 02:30 60 24 92 07/29/23 02:15 60 23 92 07/29/23 02:00 152/90 H 07/29/23 02:00 60 23 92 07/29/23 01:45 62 24 92 07/29/23 01:30 61 24 91 07/29/23 01:15 61 24 91 07/29/23 01:00 62 25 H 91 07/29/23 01:00 156/93 H 07/29/23 00:45 72 0 L 07/29/23 00:30 69 0 L 07/29/23 00:15 72 0 L 07/29/23 00:01 84 0 L 07/29/23 00:01 157/106 H 07/29/23 00:00 76 0 L 07/28/23 23:45 67 0 L 07/28/23 23:30 76 0 L 07/28/23 23:15 62 0 L 07/28/23 23:00 166/109 H 07/28/23 23:00 73 0 L 07/28/23 22:45 72 0 L 07/28/23 22:30 91 H 0 L 07/28/23 22:15 70 0 L 07/28/23 22:02 160/117 H 07/28/23 22:02 0 L 07/28/23 22:00 59 L 0 L 07/28/23 21:45 68 0 L 07/28/23 21:30 66 0 L 07/28/23 21:15 69 0 L 94 07/28/23 21:01 171/99 H 07/28/23 21:01 61 0 L 91 07/28/23 21:00 0 L 87 L 07/28/23 20:45 70 0 L 98 07/28/23 20:30 0 L 97 Coding Level of Care Code 48830 CRITICAL CARE 1ST 30-74M Diagnoses Alcohol abuse with withdrawal F10.139 Delirium tremens F10.231 Thrombocytopenia D69.6 Essential hypertension I10
[2023-07-29] MEDS: LORazepam 2 MG in SYRINGE 1 ML IV SCH (09:29)
[2023-07-29] MEDS ORDERED: chlordiazePOXIDE ALCOHOL WITHDRAWL 25MG PO STA (09:51)
[2023-07-29] MEDS: chlordiazePOXIDE HCl 25 MG CAP PO SCH ×2 (10:33→15:35)
--- NOTE | 2023-07-29 18:01 | Hospitalist Progress Note ---
Date of Service July 29, 2023 Assessment & Plan (1) Alcohol abuse with withdrawal: Plan: history of severe etoh withdrawal requiring ICU admission in past. Initially treated with IV lorazepam in ED then started on phenobarbital this admission. Did well 07/26 daytime then became severely agitated and delirious 07/27 early am and transferred to ICU. precedex drip started 07/27 with adequate response. cont precedex drip. cont ativan prn per AWSS. librium added by ICU team today. Dehydration due to alcohol withdrawal and associated vomiting. Nausea/vomiting was entirely related to withdrawal and had resolved after IV fluids and medications in ED. -banana bag given, IV fluids with LR and PRN antiemetics -mildly hyponatremic at 130 - resolved to 136 today after IV fluids Hypokalemia - K 3.0 - replace IV Hypomanesemia - 1.6 - replace IV Daily AM CBC CMP mag Seizure history - at least some, maybe all seizures related to alcohol withdrawal -phenobarbital as above -continue lamotrigine (2) Alcoholic liver disease: Plan: alcoholic cirrhosis. imaging 06/2023 with esophageal varices and recanalization of umbilical vein indicative of portal hypertension. No ascites. would benefit from gastroenterology follow up, EGD screening for varices, serial US imaging to screen for hepatoma. consider adding nadolol/propranolol for portal HTN. may have superimposed alcoholic hepatitis on top of baseline cirrhosis. cessation counseling to be provided once he is less confused. consider naltrexone. cont folate and thiamine. serial labs. (3) Thrombocytopenia: Plan: Secondary to direct toxic effect of alcohol on bone marrow, cirrhosis, etc. monitor. (4) Hypertension: Plan: home med list - clonidine 0.1 bid, lisinopril 20 mg daily - but patient reports he was NOT taking lisinopril consider propranolol or nadolol (rather than lisinopril) due to portal HTN (5) Delirium tremens: Plan: see #1 above (6) Seizures: Plan: cont lamictal 150mg BID Plan DVT ppx - SQ heparin will need PT/OT Admission and Anticipated Discharge Date Admission Date: July 26, 2023 Subjective patient still on precedex, but dose has been weaned thru the day today sitter at bedside still confused but improving eating no abd pain no nausea/emesis tele wnl Review of Systems Review of Systems: cv - no cp, no orthopnea pulm - no cough Physical Exam Physical Exam: gen - NAD, mild tremor of arms only mouth - MMM neck - no JVD heart - borderline tachy, s1 s2, no murmur lungs - CTA b/l abd - soft, liver edge palpable, BS+, NT ext - no edema; pulses 2+ b/l psych - awake, alert, oriented to person/place Results & Data Results & Data Vital Signs (Past 12 Hours) Vital Signs Temp Pulse Resp BP Pulse Ox Pulse Ox O2 Del Method 07/29/23 16:45 37 C 07/29/23 16:19 70 07/29/23 16:01 147/94 H 07/29/23 16:01 71 16 98 07/29/23 16:00 73 100 07/29/23 16:00 96 Room Air 07/29/23 15:03 151/80 H 07/29/23 15:03 67 97 07/29/23 15:00 69 20 97 07/29/23 14:02 82 07/29/23 14:02 122/81 07/29/23 13:01 81 16 97 07/29/23 13:01 142/94 H 07/29/23 13:00 85 95 07/29/23 12:01 65 18 07/29/23 12:01 136/89 07/29/23 12:00 73 95 07/29/23 12:00 36.4 C L 07/29/23 11:01 136/78 07/29/23 11:01 55 L 16 95 07/29/23 11:00 53 L 96 07/29/23 10:02 133/91 07/29/23 10:02 55 L 16 07/29/23 10:00 61 96 07/29/23 09:45 64 0 L 97 07/29/23 09:30 61 0 L 93 07/29/23 09:15 59 L 0 L 93 07/29/23 09:11 160/112 H 07/29/23 09:11 63 0 L 97 07/29/23 09:00 56 L 0 L 97 07/29/23 08:45 61 0 L 94 07/29/23 08:30 51 L 0 L 92 07/29/23 08:15 49 L 20 94 07/29/23 08:00 169/105 H 07/29/23 08:00 49 L 19 96 07/29/23 08:00 36.4 C L 07/29/23 08:00 96 Room Air 07/29/23 08:00 36.4 C L 07/29/23 07:45 49 L 22 95 07/29/23 07:30 49 L 21 95 07/29/23 07:15 52 L 21 94 07/29/23 07:00 149/97 H 07/29/23 07:00 52 L 22 93 07/29/23 07:00 52 L Laboratory Results Laboratory Results 07/28/23 07/29/23 07/29/23 Unknown 05:16 11:41 WBC 3.59 L RBC 3.09 L Hgb 11.1 L Hct 31.6 L MCV 102.3 H MCH 35.9 H MCHC 35.1 RDW Std Deviation 47.9 H RDW Coeff of Amena 12.7 Plt Count 68 L MPV 11.3 Sodium 136 Potassium 3.9 D Chloride 108 H Carbon Dioxide 21 Anion Gap 7 BUN 9 Creatinine 0.79 Est Cr Clr Drug Dosing 128.2 Est GFR ( Amer) 124.8 Est GFR (Non-Af Amer) 107.7 BUN/Creatinine Ratio 11.4 Glucose 110 H POC Glucose 84 Calcium 8.6 Phosphorus 3.3 Magnesium 1.9 Total Bilirubin 1.0 AST 88 H ALT 87 H Alkaline Phosphatase 97 Total Protein 6.9 Albumin 3.7 Globulin 3.2 Albumin/Globulin Ratio 1.2 Nasal Screen MRSA (PCR) Negative PG Care Time/CCT Total # of Minutes Spent Total Time Spent with Patient: Total time spent is greater than 50% in coordination of care (as documented) at patient's floor/unit and/or counseling patient: Coding Level of Care Code 20635 SUB INP/OBS CARE 25MIN Diagnoses Alcohol abuse with withdrawal F10.139 Alcoholic liver disease K70.9 Thrombocytopenia D69.6 Hypertension I10 Delirium tremens F10.231 Seizures R56.9
[2023-07-30 04:59] LABS: Hematocrit (blood only) 35.5 % (42.0-52.0); Hemoglobin 12.5 g/dl (14.0-18.0); Mean Corpuscular Hgb Conc 35.2 g/dL (32.0-36.0); Mean Corpuscular Volume 102.3 fL (80.0-100.0); Mean Platelet Volume 10.8 fL (9.4-12.4); Platelet Count 86 K/uL (130-400); RDW Coefficient of Variation 12.5 % (11.5-14.5); RDW Standard Deviation 47.1 fL (36.4-46.3); Red Blood Count 3.47 M/uL (4.70-6.10); White Blood Count 4.03 K/ul (4.8-10.8)
[2023-07-30 05:11] LABS: Albumin Globulin Ratio 1.2 (0.9-2); Albumin Level 3.8 gm/dl (3.4-5.0); BUN Creatinine Ratio 12.2 (10-20); Bilirubin,Total 0.7 mg/dl (0.2-1.0); Calcium 8.8 mg/dl (8.6-10.3); Creatinine Clr Calc Pharmacy 136.9 ml/min; Est GFR (African American) 128.2 ml/min; Est GFR (Non-African American) 110.6 ml/min; Globulin 3.1 gm/dl (2.5-4.0); Magnesium 1.9 mg/dl (1.7-2.4); Phosphorus 3.3 mg/dl (2.5-4.9); Potassium 3.7 mmol/L (3.5-5.1); Total Protein 6.9 gm/dl (6.0-8.3)
[2023-07-30] MEDS: POTASSIUM CHLORIDE / WTR 10 MEQ/100 ML PLCT IV SCH (05:49)
[2023-07-30] MEDS: MAGNESIUM SULFATE / D5W 1 GM/100 ML BAG IV SCH (05:49)
--- NOTE | 2023-07-30 07:52 | Critical Care Progress Note ---
Date of Service July 30, 2023 Assessment & Plan (1) Alcohol abuse with withdrawal: (2) Delirium tremens: (3) Thrombocytopenia: (4) Essential hypertension: Plan Reason Critically Ill: 48-year-old male with significant past medical history of alcohol abuse, thrombocytopenia, seizure disorder, and essential hypertension who was admitted in the setting of acute alcohol withdrawal requiring escalating doses of phenobarbital without response. Patient eventually transferred to the ICU where he was started on Precedex drip with aliquots of Ativan as needed. NEURO - * CAM ICU: POSITIVE * Alcohol withdrawal: * Did well overnight and required no intermittent doses of Ativan. * Continued with scheduled Ativan for now. * DC Precedex drip * Patient started on lower dose Librium therapy yesterday as well. Seems to be tolerating this well * Patient with known history of alcohol abuse presenting with alcohol withdrawal and delirium tremens requiring escalating doses of phenobarbital with transition yesterday to Precedex drip with aliquots of Ativan. * Continue with high-dose thiamine and folic acid. * Seizure disorder: * Continue Lamictal. CARDIAC/VASCULAR - * Hypertension: * Will restart his clonidine and lisinopril. * Monitor on telemetry. RESPIRATORY - * No history of pulmonary disease. * Saturating well on room air. GI/NUTRITION - * Transaminitis: * In the setting of alcohol abuse. * Numbers trending down this morning. * Tolerating a diet today. RENAL/LYTES - * Hypokalemia: * Continue to replace as needed. - * No concerns at this time. ENDO - * No history of diabetes or thyroid disease. * BSGs per unit protocol. ISS --> gtt per unit policy. HEME - * Thrombocytopenia: * Secondary to bone marrow suppression and the chronic alcoholic. * Platelet count improving today. * Monitor for signs/symptoms of bleeding in a patient that is at risk. ID - * No concerns for infectious contribution at this time. LINES/IV ACCESS - * PIVs x2 DVT PROPHYLAXIS - * Heparin subcutaneous * SCDs Patient is off the Precedex at this time. He is tolerating scheduled Ativan dosing. Patient will have his antihypertensive reinstituted. Patient stable from downgrade from the ICU later this afternoon. Thank you for allowing us to participate in the care of this patient. Please refer to my attending physician's documentation for any further recommendations. Admission and Anticipated Discharge Date Admission Date: July 26, 2023 Subjective Patient seen and evaluated bedside. He had an uneventful night. He remained on 0.2 of Precedex IV. He required no intermittent doses of Ativan overnight. Patient is awake, alert, and oriented. He is less spontaneous and impulsive today. Review of Systems Review of Systems: A complete 10 point review of systems was reviewed with the patient with pertinent positives and negatives as per history of present illness. All else were negative. Physical Exam Physical Exam: VITAL SIGNS - Vital signs and nursing notes were reviewed. GENERAL - 48-year-old male appearing his stated age who is in no acute distress. Somnolent but arouses to noxious stimuli. SKIN - Without rashes. HEAD - NC/AT. EYES - PERRL with EOMI bilaterally. Sclera anicteric. NOSE - Midline and without cyanosis. MOUTH/OROPHARYNX - Without perioral cyanosis. NECK - Neck with FROM. LUNGS - Normal vesicular breath sounds CTA B/L. No wheezes, rales, or rhonchi appreciated. CARDIAC - RRR with S1/S2. No murmur, rubs, or gallops appreciated. ABDOMEN - Abdominal contour flat without pulsations or visible masses. BS normoactive all four quadrants. No tenderness, palpable masses, hepatosplenomegaly, or ascites noted. EXTREMITIES - No clubbing or peripheral cyanosis. No pretibial edema present. +3/5 radial and dorsalis pedis pulses palpated throughout. NEUROLOGIC -no focal neurological deficits noted on exam. PSYCH -somnolent, but arouses to noxious stimuli. Still confused. Results & Data Results & Data Vital Signs (Past 12 Hours) Vital Signs Pulse Resp BP Pulse Ox 07/30/23 06:15 63 28 H 96 07/30/23 06:00 64 29 H 94 07/30/23 05:45 62 28 H 95 07/30/23 05:31 62 28 H 95 07/30/23 05:15 62 29 H 95 07/30/23 05:00 177/109 H 07/30/23 05:00 63 30 H 96 07/30/23 04:45 60 31 H 97 07/30/23 04:30 61 26 H 97 07/30/23 04:15 59 L 24 96 07/30/23 04:00 151/97 H 07/30/23 04:00 60 29 H 95 05/22/24 03:45 64 31 H 95 07/30/23 03:30 62 32 H 97 07/30/23 03:15 65 29 H 95 07/30/23 03:00 163/101 H 07/30/23 03:00 70 28 H 96 07/30/23 02:45 65 30 H 96 07/30/23 02:30 66 30 H 95 07/30/23 02:15 66 29 H 97 07/30/23 02:00 163/106 H 07/30/23 02:00 68 17 98 07/30/23 01:45 61 31 H 97 07/30/23 01:30 62 18 95 07/30/23 01:15 75 31 H 96 07/30/23 01:00 152/82 H 07/30/23 01:00 64 27 H 95 07/30/23 00:45 63 30 H 94 07/30/23 00:30 68 28 H 96 07/30/23 00:15 65 24 95 07/30/23 00:00 65 18 95 07/30/23 00:00 144/86 H 07/29/23 23:45 71 28 H 94 07/29/23 23:30 74 14 94 07/29/23 23:15 71 28 H 95 07/29/23 23:00 77 9 L 93 07/29/23 23:00 141/83 H 07/29/23 22:45 80 10 L 96 07/29/23 22:30 81 0 L 93 07/29/23 22:15 82 0 L 94 07/29/23 22:00 156/90 H 07/29/23 22:00 76 0 L 95 07/29/23 21:45 75 0 L 96 07/29/23 21:30 85 0 L 97 07/29/23 21:15 85 0 L 96 07/29/23 21:00 155/97 H 07/29/23 21:00 80 0 L 97 07/29/23 20:45 80 0 L 97 07/29/23 20:30 101 H 0 L 92 07/29/23 20:15 123 H 0 L 96 07/29/23 20:01 67 0 L 97 07/29/23 20:01 161/97 H 07/29/23 20:00 68 0 L 96 Coding Level of Care Code 76160 SUB INP/OBS CARE 3/50MIN Diagnoses Alcohol abuse with withdrawal F10.139 Delirium tremens F10.231 Thrombocytopenia D69.6 Essential hypertension I10
[2023-07-30] MEDS: LORazepam 1 MG in SYRINGE 0.5 ML IV PRN (09:44)
[2023-07-30] MEDS: cloNIDine HCL 0.1 MG TAB PO STA (10:52)
[2023-07-30] MEDS: ACETAMINOPHEN 325 MG TAB PO PRN (16:10)
[2023-07-30] MEDS ORDERED: PHENobarbitaL 30 MG TAB PO SCH (19:00)
[2023-07-30] MEDS: cloNIDine HCL 0.1 MG TAB PO SCH (20:18)
[2023-07-30] MEDS: lisinopril 20 MG TAB PO SCH (20:19)
--- NOTE | 2023-07-30 21:54 | Hospitalist Progress Note ---
Date of Service July 30, 2023 Assessment & Plan (1) Alcohol abuse with withdrawal: Plan: history of severe etoh withdrawal requiring ICU admission in past. Initially treated with IV lorazepam in ED then started on phenobarbital this admission. Did well 07/26 daytime then became severely agitated and delirious 07/27 early am and transferred to ICU. precedex drip started 07/27 with adequate response. precedex drip now weaned off. cont ativan prn per AWSS. cont librium taper. ICU team this am added scheduled ativan 2mg IV q3h. thus far tolerating this w/o excess sedation or side effects. (2) Alcoholic liver disease: Plan: alcoholic cirrhosis. imaging 06/2023 with esophageal varices and recanalization of umbilical vein indicative of portal hypertension. No ascites. would benefit from gastroenterology follow up, EGD screening for varices, serial US imaging to screen for hepatoma. adding propranolol for portal HTN and essential HTN. may have superimposed alcoholic hepatitis on top of baseline cirrhosis. LFTs have all improved. consider naltrexone. cont folate and thiamine. serial labs. (3) Thrombocytopenia: Plan: Secondary to direct toxic effect of alcohol on bone marrow, cirrhosis, etc. monitor. slowly improving. (4) Hypertension: Plan: home med list - clonidine 0.1 bid, lisinopril 20 mg daily - but patient reports he was NOT taking lisinopril will stop lisinopril add propranolol 10mg BID cont clonidine (5) Delirium tremens: Plan: see #1 above improved/resolved (6) Seizures: Plan: cont lamictal 150mg BID (7) Pancytopenia: Plan: 2nd to etoh abuse/liver disease/cirrhosis Plan DVT ppx - SQ heparin PT/OT evals requested transfer from ICU to PCU today Admission and Anticipated Discharge Date Admission Date: July 26, 2023 Subjective patient feeling much better today eating well has not been out of bed denies tremors mentating well - got all orientation questions correct today slept ok overnight denies any complaints Physical Exam Physical Exam: gen - NAD, looks well today; awake/alert; no overt signs of withdrawal mouth - MMM neck - no JVD heart - RRR, s1 s2, no murmur lungs - CTA b/l abd - soft, liver edge palpable, BS+, NT; spleen not palpable ext - no edema; pulses 2+ b/l psych - awake, alert, oriented to person/place/time neuro - no tremors Results & Data Results & Data Vital Signs (Past 12 Hours) Vital Signs Temp Pulse Pulse Resp BP BP Pulse Ox 07/30/23 20:00 100 H 07/30/23 19:40 07/30/23 19:39 105 H 14 162/108 H 07/30/23 19:31 96 H 07/30/23 16:00 90 07/30/23 15:00 36.6 C 82 20 152/104 H 97 07/30/23 14:00 36.6 C 76 20 154/97 H 97 07/30/23 13:00 36.5 C 76 20 154/95 H 94 07/30/23 12:27 162/100 H 07/30/23 12:26 92 H 97 07/30/23 11:00 37.0 C 93 H 18 178/108 H 95 07/30/23 10:00 36.4 C L 81 18 166/108 H 98 O2 Del Method O2 Del Method 07/30/23 20:00 07/30/23 19:40 Room Air 07/30/23 19:39 07/30/23 19:31 07/30/23 16:00 07/30/23 15:00 Room Air 07/30/23 14:00 Room Air 07/30/23 13:00 Room Air 07/30/23 12:27 07/30/23 12:26 07/30/23 11:00 Room Air 07/30/23 10:00 Room Air Laboratory Results Laboratory Results - last 24 hr 07/30/23 07/30/23 04:24 13:13 WBC 4.03 L RBC 3.47 L Hgb 12.5 L Hct 35.5 L MCV 102.3 H MCH 36.0 H MCHC 35.2 RDW Std Deviation 47.1 H RDW Coeff of Amena 12.5 Plt Count 86 L MPV 10.8 Sodium 135 L Potassium 3.7 Chloride 107 Carbon Dioxide 22 Anion Gap 6 BUN 9 Creatinine 0.74 Est Cr Clr Drug Dosing 136.9 Est GFR ( Amer) 128.2 Est GFR (Non-Af Amer) 110.6 BUN/Creatinine Ratio 12.2 Glucose 101 H POC Glucose 113 H Calcium 8.8 Phosphorus 3.3 Magnesium 1.9 Total Bilirubin 0.7 AST 60 H ALT 73 H Alkaline Phosphatase 96 Total Protein 6.9 Albumin 3.8 Globulin 3.1 Albumin/Globulin Ratio 1.2 PG Care Time/CCT Total # of Minutes Spent Total Time Spent with Patient: Total time spent is greater than 50% in coordination of care (as documented) at patient's floor/unit and/or counseling patient: Coding Level of Care Code 59090 SUB INP/OBS CARE 2/35MIN Diagnoses Alcohol abuse with withdrawal F10.139 Alcoholic liver disease K70.9 Thrombocytopenia D69.6 Hypertension I10 Delirium tremens F10.231 Seizures R56.9 Pancytopenia D61.818
[2023-07-31 06:10] LABS: Albumin Globulin Ratio 1.2 (0.9-2); Albumin Level 3.9 gm/dl (3.4-5.0); BUN Creatinine Ratio 9.1 (10-20); Bilirubin,Total 0.6 mg/dl (0.2-1.0); Calcium 9.2 mg/dl (8.6-10.3); Creatinine Clr Calc Pharmacy 124.5 ml/min; Est GFR (African American) 119.4 ml/min; Globulin 3.3 gm/dl (2.5-4.0); Potassium 3.3 mmol/L (3.5-5.1); Total Protein 7.2 gm/dl (6.0-8.3)
[2023-07-31 06:13] LABS: Hematocrit (blood only) 33.2 % (42.0-52.0); Hemoglobin 11.7 g/dl (14.0-18.0); Mean Corpuscular Hgb Conc 35.2 g/dL (32.0-36.0); Mean Corpuscular Volume 102.2 fL (80.0-100.0); Mean Platelet Volume 10.8 fL (9.4-12.4); Platelet Count 112 K/uL (130-400); RDW Coefficient of Variation 12.4 % (11.5-14.5); RDW Standard Deviation 46.6 fL (36.4-46.3); Red Blood Count 3.25 M/uL (4.70-6.10); White Blood Count 4.25 K/ul (4.8-10.8)
[2023-07-31] MEDS: PROPRANOLOL HCL 10 MG TAB PO SCH (08:36)
[2023-07-31] MEDS: LORazepam 2 MG in SYRINGE 1 ML IV SCH (09:33)
[2023-07-31] MEDS: POTASSIUM CHLORIDE CRTAB 20 MEQ TABCR PO STA (09:33)
--- NOTE | 2023-07-31 20:32 | Hospitalist Progress Note ---
Date of Service July 31, 2023 Assessment & Plan (1) Alcohol abuse with withdrawal: Plan: Withdrawal improving. Initially treated with IV lorazepam in ED then started on phenobarbital earlier in admission. Did well 07/26 daytime then became severely agitated and delirious 07/27 early am and transferred to ICU. precedex drip started 07/27 with adequate response. precedex drip now weaned off. cont ativan prn per AWSS. cont librium taper. ICU team added scheduled ativan 2mg IV q3h about 2 days ago. Will wean to q4h, then q6h tomorrow. (2) Alcoholic liver disease: Plan: alcoholic cirrhosis. imaging 06/2023 with esophageal varices and recanalization of umbilical vein indicative of portal hypertension. No ascites. would benefit from gastroenterology follow up, EGD screening for varices, serial US imaging to screen for hepatoma. added propranolol for portal HTN and essential HTN. may have superimposed alcoholic hepatitis on top of baseline cirrhosis. LFTs have all improved, however. consider naltrexone. I discussed this briefly with patient today. cont folate and thiamine. serial labs. (3) Thrombocytopenia: Plan: Secondary to direct toxic effect of alcohol on bone marrow, cirrhosis, etc. platelets cont to improve; level is 112 today. cont to monitor. (4) Hypertension: Plan: home med list - clonidine 0.1 bid, lisinopril 20 mg daily - but patient reports he was NOT taking lisinopril lisinopril stopped added propranolol 10mg BID cont clonidine BPs improving (5) Delirium tremens: Plan: see #1 above resolved (6) Seizures: Plan: cont lamictal 150mg BID (7) Pancytopenia: Plan: 2nd to etoh abuse/liver disease/cirrhosis cell lines improving Plan DVT ppx - SQ heparin PT/OT evals requested; did well with them today should be able to return home with father at discharge of note - his father does not drink alcohol Admission and Anticipated Discharge Date Admission Date: July 26, 2023 Subjective no events overnight tele stable eating well worked with PT - felt unsteady, but able to ambulate a good distance around the unit we had candid discussion about his drinking today strong family history of alcoholism Review of Systems Review of Systems: CV - no chest pain pulm - no dyspnea or GARCIA GI - no abd pain/nausea/emesis Physical Exam Physical Exam: gen - NAD, looks good today mouth - MMM neck - no JVD heart - RRR, s1 s2, no murmur lungs - CTA b/l abd - soft, NT, ND, BS+ ext - no edema; pulses 2+ b/l psych - awake, alert, oriented to person/place/time neuro - no tremors Results & Data Results & Data Vital Signs (Past 12 Hours) Vital Signs Temp Pulse Pulse Resp BP BP Pulse Ox 07/31/23 19:08 36.7 C 82 15 150/97 H 96 07/31/23 18:18 164/120 H 07/31/23 18:18 68 0 L 99 07/31/23 18:16 153/114 H 07/31/23 18:16 68 0 L 98 07/31/23 18:00 62 0 L 07/31/23 17:00 68 0 L 07/31/23 16:00 77 0 L 07/31/23 16:00 07/31/23 15:00 71 0 L 07/31/23 14:00 82 0 L 07/31/23 13:00 76 0 L 07/31/23 12:00 76 0 L 07/31/23 11:09 36.6 C 73 18 113/72 92 07/31/23 11:07 113/72 07/31/23 11:07 113/72 07/31/23 11:07 70 0 L 07/31/23 11:00 73 0 L 07/31/23 10:00 96 H 0 L 07/31/23 09:54 101 H 0 L 07/31/23 09:54 129/88 07/31/23 09:46 137/87 07/31/23 09:46 96 H 0 L 07/31/23 09:00 0 L Pulse Ox O2 Del Method O2 Del Method 07/31/23 19:08 Room Air 07/31/23 18:18 07/31/23 18:18 07/31/23 18:16 07/31/23 18:16 07/31/23 18:00 07/31/23 17:00 07/31/23 16:00 07/31/23 16:00 96 Room Air 07/31/23 15:00 07/31/23 14:00 07/31/23 13:00 07/31/23 12:00 07/31/23 11:09 Room Air 07/31/23 11:07 07/31/23 11:07 07/31/23 11:07 07/31/23 11:00 07/31/23 10:00 07/31/23 09:54 07/31/23 09:54 07/31/23 09:46 07/31/23 09:46 07/31/23 09:00 Laboratory Results Laboratory Results - last 24 hr 07/31/23 05:31 WBC 4.25 L RBC 3.25 L Hgb 11.7 L Hct 33.2 L MCV 102.2 H MCH 36.0 H MCHC 35.2 RDW Std Deviation 46.6 H RDW Coeff of Amena 12.4 Plt Count 112 L MPV 10.8 Sodium 137 Potassium 3.3 L Chloride 106 Carbon Dioxide 24 Anion Gap 7 BUN 8 Creatinine 0.88 Est Cr Clr Drug Dosing 124.5 Est GFR ( Amer) 119.4 Est GFR (Non-Af Amer) 103.0 BUN/Creatinine Ratio 9.1 L Glucose 104 H Calcium 9.2 Total Bilirubin 0.6 AST 42 H ALT 61 H Alkaline Phosphatase 91 Total Protein 7.2 Albumin 3.9 Globulin 3.3 Albumin/Globulin Ratio 1.2 PG Care Time/CCT Total # of Minutes Spent Total Time Spent with Patient: Total time spent is greater than 50% in coordination of care (as documented) at patient's floor/unit and/or counseling patient: Coding Level of Care Code 14344 SUB INP/OBS CARE 235MIN Diagnoses Alcohol abuse with withdrawal F10.139 Alcoholic liver disease K70.9 Thrombocytopenia D69.6 Hypertension I10 Delirium tremens F10.231 Seizures R56.9 Pancytopenia D61.818
[2023-08-01 05:14] LABS: BUN Creatinine Ratio 13.4 (10-20); Calcium 9.5 mg/dl (8.6-10.3); Creatinine Clr Calc Pharmacy 123.6 ml/min; Est GFR (African American) 122.9 ml/min; Potassium 3.7 mmol/L (3.5-5.1)
[2023-08-01] MEDS: LORazepam 2 MG in SYRINGE 1 ML IV SCH (11:47)
[2023-08-01] MEDS: chlordiazePOXIDE HCl 5 MG CAP PO SCH (16:44)
--- NOTE | 2023-08-01 18:52 | Hospitalist Progress Note ---
Date of Service August 01, 2023 Assessment & Plan (1) Alcohol abuse with withdrawal: Plan: Withdrawal improving. Initially treated with IV lorazepam in ED then started on phenobarbital earlier in admission. Did well 07/26 daytime then became severely agitated and delirious 07/27 early am and transferred to ICU. precedex drip started 07/27 with adequate response. precedex drip now weaned off. cont ativan prn per AWSS. finish librium taper. ICU team added scheduled ativan 2mg IV q3h about 3 days ago. Will wean to 2mg q6h today, then 1mg q6h tomorrow, then off. (2) Alcoholic liver disease: Plan: alcoholic cirrhosis. imaging 06/2023 with esophageal varices and recanalization of umbilical vein indicative of portal hypertension. No ascites. would benefit from gastroenterology follow up, EGD screening for varices, serial US imaging to screen for hepatoma. added propranolol for portal HTN and essential HTN. may have superimposed alcoholic hepatitis on top of baseline cirrhosis. LFTs have all improved, however. consider naltrexone. I discussed this briefly with patient again today. gave patient handout on naltrexone. cont folate and thiamine. serial labs. (3) Thrombocytopenia: Plan: Secondary to direct toxic effect of alcohol on bone marrow, cirrhosis, etc. platelets cont to improve; most recent level 112. cont to monitor. (4) Hypertension: Plan: home med list - clonidine 0.2 bid, lisinopril 20 mg daily - but patient reports he was NOT taking lisinopril lisinopril stopped cont propranolol 10mg BID cont clonidine BPs acceptable (5) Delirium tremens: Plan: see #1 above resolved (6) Seizures: Plan: cont lamictal 150mg BID (7) Pancytopenia: Plan: 2nd to etoh abuse/liver disease/cirrhosis cell lines improving recheck cbc prior to discharge for stability Plan DVT ppx - SQ heparin PT/OT evals requested; did well with them should be able to return home with father at discharge of note - his father does not drink alcohol Admission and Anticipated Discharge Date Admission Date: July 26, 2023 Subjective no events tele stable feels well except for still feeling unsteady on his feet per staff no concerns or issues we had discussion today about naltrexone he will think about this per staff is open to outpatient therapy Review of Systems Review of Systems: CV - no chest pain pulm - no dyspnea GI - no N/V Physical Exam Physical Exam: gen - NAD, looks good today, slightly impulsive mouth - MMM neck - no JVD heart - RRR, s1 s2, no murmur lungs - CTA b/l abd - soft, NT, ND, BS+ ext - no edema; pulses 2+ b/l psych - awake, alert, oriented to person/place/time neuro - no tremors; gait mildly ataxic Results & Data Results & Data Vital Signs (Past 12 Hours) Vital Signs Temp Pulse Resp BP Pulse Ox O2 Del Method 08/01/23 16:17 36.6 C 62 19 120/79 97 Room Air 08/01/23 11:25 36.7 C 60 22 122/84 95 Room Air 08/01/23 07:53 36.4 C L 89 24 145/100 H 90 Room Air Laboratory Results Laboratory Results - last 24 hr 08/01/23 04:27 Sodium 136 Potassium 3.7 Chloride 106 Carbon Dioxide 22 Anion Gap 8 BUN 11 Creatinine 0.82 Est Cr Clr Drug Dosing 123.6 Est GFR ( Amer) 122.9 Est GFR (Non-Af Amer) 106.0 BUN/Creatinine Ratio 13.4 Glucose 102 H Calcium 9.5 PG Care Time/CCT Total # of Minutes Spent Total Time Spent with Patient: Total time spent is greater than 50% in coordination of care (as documented) at patient's floor/unit and/or counseling patient: Coding Level of Care Code 30285 SUB INP/OBS CARE 04/03MIN Diagnoses Alcohol abuse with withdrawal F10.139 Alcoholic liver disease K70.9 Thrombocytopenia D69.6 Hypertension I10 Delirium tremens F10.231 Seizures R56.9 Pancytopenia D61.818
[2023-08-02] MEDS ORDERED: LORazepam 1 MG in SYRINGE 1 ML IV SCH (12:00)
[2023-08-02] MEDS: LORazepam 1 MG in SYRINGE 0.5 ML IV SCH (12:55)
--- NOTE | 2023-08-02 20:54 | Hospitalist Progress Note ---
Date of Service August 02, 2023 Assessment & Plan (1) Alcohol abuse with withdrawal: Plan: Withdrawal resolved clinically. Initially treated with IV lorazepam in ED then started on phenobarbital earlier in admission. Did well 07/26 daytime then became severely agitated and delirious 07/27 early am and transferred to ICU. precedex drip started 07/27 with adequate response. precedex drip was weaned off earlier this week. cont ativan prn per AWSS but has not needed any PRNs in 3+ days. finished librium taper. ICU team added scheduled ativan 2mg IV q3h about 4 days ago. Weaned down over the last few days; now down to 1mg q6h. Plan to d/c ativan completely tomorrow am. (2) Alcoholic liver disease: Plan: alcoholic cirrhosis. imaging 06/2023 with esophageal varices and recanalization of umbilical vein indicative of portal hypertension. No ascites. would benefit from gastroenterology follow up, EGD screening for varices, serial US imaging to screen for hepatoma. added propranolol for portal HTN and essential HTN. tolerating such. may have superimposed alcoholic hepatitis on top of baseline cirrhosis. LFTs have all improved, however. plan to repeat ast/alt in the am. consider naltrexone. I discussed this again with the patient today. he has a handout for the naltrexone. cont folate and thiamine. serial labs. (3) Thrombocytopenia: Plan: Secondary to direct toxic effect of alcohol on bone marrow, cirrhosis, etc. platelets cont to improve; most recent level 112. repeat cbc am. (4) Hypertension: Plan: home med list - clonidine 0.2 bid, lisinopril 20 mg daily - but patient reports he was NOT taking lisinopril lisinopril stopped cont propranolol 10mg BID cont clonidine BID BPs remain acceptable (5) Delirium tremens: Plan: resolved (6) Seizures: Plan: cont lamictal 150mg BID (7) Pancytopenia: Plan: 2nd to etoh abuse/liver disease/cirrhosis cell lines improving recheck cbc in am (8) Alcohol cessation counseling: Plan: spent about 20-25 minutes discussing etoh cessation encouragement given Plan DVT ppx - SQ heparin doing much better with walking now that benzos have nearly been weaned off and his withdrawal is coming to an end possible d/c on Friday Admission and Anticipated Discharge Date Admission Date: July 26, 2023 Subjective tele stable overnight no events or issues walked the hallways today and was more steady on his feet denies pain any location eating well staff report no concerns he has not looked at the information yet about naltrexone Review of Systems Review of Systems: GI - no constipation; moving bowels; no N/V pulm - no dyspnea or GARCIA Physical Exam Physical Exam: gen - NAD, looks very good, NO signs of withdrawal mouth - MMM neck - no JVD heart - RRR, s1 s2, no murmur lungs - CTA b/l abd - soft, NT, ND, BS+ ext - no edema; pulses 2+ b/l neuro - no tremors Results & Data Results & Data Vital Signs (Past 12 Hours) Vital Signs Temp Pulse Pulse Resp BP Pulse Ox O2 Del Method 08/02/23 19:20 36.8 C 68 19 164/103 H 98 Room Air 08/02/23 17:16 75 08/02/23 16:07 36.5 C 61 14 132/86 95 Room Air 08/02/23 11:25 36.4 C L 71 14 104/59 L 99 Room Air PG Care Time/CCT Total # of Minutes Spent Total Time Spent with Patient: Total time spent is greater than 50% in coordination of care (as documented) at patient's floor/unit and/or counseling patient: Coding Level of Care Code 54709 SUB INP/OBS CARE 2/35MIN Diagnoses Alcohol abuse with withdrawal F10.139 Alcoholic liver disease K70.9 Thrombocytopenia D69.6 Hypertension I10 Delirium tremens F10.231 Seizures R56.9 Pancytopenia D61.818 Alcohol cessation counseling Z71.41
[2023-08-03 05:06] LABS: Hematocrit (blood only) 36.1 % (42.0-52.0); Hemoglobin 12.2 g/dl (14.0-18.0); Mean Corpuscular Hemoglobin 35.5 pg (25.0-34.0); Mean Corpuscular Hgb Conc 33.8 g/dL (32.0-36.0); Mean Corpuscular Volume 104.9 fL (80.0-100.0); Mean Platelet Volume 10.3 fL (9.4-12.4); Platelet Count 169 K/uL (130-400); RDW Coefficient of Variation 12.7 % (11.5-14.5); Red Blood Count 3.44 M/uL (4.70-6.10); White Blood Count 5.14 K/ul (4.8-10.8)
[2023-08-03 05:07] LABS: BUN Creatinine Ratio 12.1 (10-20); Calcium 9.2 mg/dl (8.6-10.3); Creatinine Clr Calc Pharmacy 110.7 ml/min; Est GFR (African American) 105.4 ml/min; Potassium 3.8 mmol/L (3.5-5.1)
[2023-08-03] MEDS: NALTREXONE HCL 50 MG TAB PO SCH (12:53)
--- NOTE | 2023-08-03 14:56 | Discharge Summary ---
Date of Service August 03, 2023 Admission HPI Per Admitting Provider 48 y/o man with history of severe alcohol use disorder, multiple admissions for alcohol withdrawal, alcoholic liver disease, seizure disorder Discharged 06/14/23 admission was for alcohol withdrawal Seen in ED twice this week for intoxication. BAL 455, 354. States his last drink was Friday (5 days ago) and that he wants to quit drinking and detox. Has never tried MAT for AUD. last several days has had shakes, nausea and vomiting, unable to keep anything down. Feels much better after lorazepam 3 mg IV given in ED. Still has shakes but improved, nausea/vomiting resolved, denies any abdominal pain. No coughing or dyspnea. No dysuria or urinary frequency. No skin or joint problems. Discharge Exam gen - NAD, looks very good, NO signs of withdrawal mouth - MMM neck - no JVD heart - RRR, s1 s2, no murmur lungs - CTA b/l abd - soft, NT, ND, BS+ ext - no edema; pulses 2+ b/l neuro - no tremors Discharge Data Allergies Allergy/AdvReac Type Severity Reaction Status Date / Time No Known Allergies Allergy Mild Verified 07/26/23 08:27 Consultations 07/26/23 10:30 ED Decision to Admit Stat 07/28/23 06:34 Consult Artist Suspect Routine Hospital Course (1) Alcohol abuse with withdrawal: Withdrawal resolved clinically. Initially treated with IV lorazepam in ED then started on phenobarbital earlier in admission. Did well 07/26 daytime then became severely agitated and delirious 07/27 early am and transferred to ICU. precedex drip started 07/27 with adequate response. precedex drip was weaned off earlier this week. cont ativan prn per AWSS but has not needed any PRNs in 3+ days. finished librium taper. ICU team added scheduled ativan 2mg IV q3h about 4 days ago. Weaned down over the last few days; now down to 1mg q6h. Plan to d/c ativan completely tomorrow am. (2) Alcoholic liver disease: alcoholic cirrhosis. imaging 06/2023 with esophageal varices and recanalization of umbilical vein indicative of portal hypertension. No ascites. would benefit from gastroenterology follow up, EGD screening for varices, serial US imaging to screen for hepatoma. added propranolol for portal HTN and essential HTN. tolerating such. may have superimposed alcoholic hepatitis on top of baseline cirrhosis. LFTs have all improved, however. plan to repeat ast/alt in the am. consider naltrexone. I discussed this again with the patient today. he has a handout for the naltrexone. cont folate and thiamine. serial labs. (3) Thrombocytopenia: Secondary to direct toxic effect of alcohol on bone marrow, cirrhosis, etc. platelets cont to improve; most recent level 112. repeat cbc am. (4) Hypertension: home med list - clonidine 0.2 bid, lisinopril 20 mg daily - but patient reports he was NOT taking lisinopril lisinopril stopped cont propranolol 10mg BID cont clonidine BID BPs remain acceptable (5) Delirium tremens: resolved (6) Seizures: cont lamictal 150mg BID (7) Pancytopenia: 2nd to etoh abuse/liver disease/cirrhosis cell lines improving recheck cbc in am (8) Alcohol cessation counseling: spent about 20-25 minutes discussing etoh cessation encouragement given Plan DVT ppx - SQ heparin doing much better with walking now that benzos have nearly been weaned off and his withdrawal is coming to an end possible d/c on Friday Discharge Plan Discharge Items Patient Disposition: Home - Self-Care Reason For Visit: ALCOHOL WITHDRAWAL Discharge Diagnosis: 1. alcohol withdrawal - resolved 2. high blood pressure 3. elevated liver function tests - due to alcohol abuse & cirrhosis - LFTs have normalized fully 4. low platelets - due to alcohol abuse - resolved Activity: As commented below Activity Comment: gradually increase activities over the next 7-10 days Exercise/Sports: Wait until after follow-up appointment Driving/Machine Use: No driving until you see your family doctor later this week Non-emergency contact: Primary Care Provider and Pre Press Operator Call non-emergency contact if: you have any medication questions and your symptoms worsen Follow-up/Referrals: Constantin Zepeda, [Physician] - (we will set you up with a tool distributor specialist to follow your liver) Luis Antonio Guevara [Primary Care Provider] - (see your family doctor late this week) Diet: Regular Ambulatory Orders: Hepatic Function (Liver) Panel (Routine) Timeframe: 20230808 Location: Determined by Patient Ordered By: Bill Jernigan Hepatic Function (Liver) Panel (Routine) Timeframe: [id number] Location: Determined by Patient Ordered By: Bill Jernigan Addtl Attending Provider Instructions: Mr Sefchick, You were hospitalized due to alcohol withdrawal and a desire to stop drinking. You were treated with various medicines for the withdrawal. Abnormal labs including your CBC and liver function tests have normalized over the course of your stay. Your withdrawal appears to be resolved at this time. We discussed various medicines available to help maintain sobriety including naltrexone & acamprosate. At this time you are wanting to take naltrexone. We gave you your first dose of naltrexone before discharge home. Common side effects of naltrexone include nausea, stomach upset, vomiting, and it can potentially cause your liver function tests to rise. Over the next 2 weeks I would recommend checking your liver tests at least twice to ensure you are tolerating this medicine. Naltrexone works best if you are receiving counseling, attending AA, or undergoing other forms of outpatient treatment. Just know that people will be supporting your efforts to maintain sobriety. Due to your liver disease we will set you up with a GI specialist in [place]. Recommendations - 1. naltrexone - * 25mg (1/2 tablet) by mouth once daily on 08/03 and 08/04 * on 08/05 increase to a full 50mg tablet and take once daily thereafter * take with food * if you relapse and start drinking again please continue on the naltrexone - don't stop it * please see your family doctor for refills on this medication OR you can be referred to an alcohol specialist who prescribes naltrexone 2. propranolol - this is for your liver - take 10mg twice daily, next dose is due tonight 3. liver function tests - please have these drawn on Friday, August 07; then have 1 more drawn on August 14; have your family doctor check these for you If your liver function tests rise we may have to stop the naltrexone 4. stop your lisinopril Follow-up - see separate section [facility] to [facility] if - * you have abdominal pains * you have severe nausea and/or vomiting * you have chest pains or shortness of breath * you feel dizzy or lightheaded * any other concerns It was our pleasure to care for you! -Dr Jernigan Pending Studies at Discharge: No Stand-Alone Forms: [facility], Work/School Release, Smoking Cessation Medications and DC Order Prescriptions: New naltrexone 50 mg Tablet 50 mg PO DAILY Qty: 30 0RF Rx Instructions: take 1/2 tablet (25mg) once daily on 08/03 and 08/04, then increase to 50mg once daily thereafter. propranolol 10 mg Tablet 10 mg PO BID Qty: 60 1RF Continued lamotrigine [Lamictal] 150 mg tablet 150 mg PO BID fluocinonide 0.05 % cream 1 applic topical BID PRN (Reason: Rash) Rx Instructions: Apply to areas of the trunk and extremities twice daily x 2 weeks as directed. clonidine HCl 0.1 mg tablet 0.2 mg PO BID folic acid 1 mg tablet 1 mg PO DAILY multivitamin Tablet 1 tab PO DAILY thiamine HCl (vitamin B1) 100 mg Tablet 100 mg PO QAM Qty: 0 0RF ibuprofen [Advil] 200 mg Tablet 200 mg PO Q6H PRN (Reason: Pain) Discontinued lisinopril 20 mg tablet 20 mg PO BID Discharge Orders: Discharge Order (Routine); Ordered 08/03/23 Ordered By: Bill Sparks/Other Patient Handouts: Alcoholism and Family History, Alcoholism Myths and Facts, Alcoholism Resources, Alcoholism: Getting Help Admission Data Admit Date/Time: 07/26/23 10:24 Attending Provider: Bill Jernigan Admit Provider: Yesenia Hall Primary Care Provider: Luis Antonio Guevara Other Providers: Bill Valdez; Humberto Gramajo; Endy Brothers; Wilbur Li; Luis Fernando Abrams; Fazal Daly; Eliseo Fraser; Freddie Coppola; Balbina Washington; Adele Crowley; Ruben Chen; Diego Mcleod; Soila Up Coding Diagnoses Alcohol abuse with withdrawal F10.139 Alcoholic liver disease K70.9 Thrombocytopenia D69.6 Hypertension I10 Delirium tremens F10.231 Seizures R56.9 Pancytopenia D61.818 Alcohol cessation counseling Z71.41
== END 2023-08-03 15:21 | disposition home or self-care (01) | DRG 897 ==
LOC: ED 07:02 → 2S 10:24 → SUATTDRO 10:24 → 2S 11:38 → 2E 07-27 21:23 → 1E 07-28 06:33

== ENCOUNTER 2023-10-03 21:29 | Inpatient (IN) ==
[2023-10-03] MEDS: LORazepam 1 MG/1 ML SYR ED Inj Use IV STA ×2 (21:57→23:51)
[2023-10-03] MEDS: SODIUM CHLORIDE 0.9% 1,000 ML IV ONE (21:58)
--- NOTE | 2023-10-03 21:58 | Emergency Department Note ---
History of Present Illness General Chief complaint: Alcohol Withdrawal Stated complaint: ALCOHOL WITHDRAWL Time Seen by Provider: 10/03/23 21:49 Source: patient, family (Father is at the bedside), RN notes reviewed and old records reviewed (08/03/23-discharge summary for hospitalization for alcohol withdrawal) Mode of arrival: ambulatory Limitations: no limitations History of Present Illness Maximum Pain Intensity: 3 This patient is 48-year-old male who has a history of alcoholism, comes in complaining of " alcohol withdrawal". He tells me he has the symptoms for the last 2 days or so he last drank alcohol yesterday he thinks he has had some vomiting without any blood no abdominal pain he is on 4-10 headache he had a seizure earlier today he tells me. No trauma or injury does not think he hit his head. He complains of feeling shaky. No chest pain or shortness of breath. Home Medications Medication Instructions Recorded Confirmed Type lamotrigine 150 mg tablet 150 mg PO BID 01/13/21 09/16/23 History (Lamictal) clonidine HCl 0.1 mg tablet 0.2 mg PO BID 11/11/21 09/16/23 History folic acid 1 mg tablet 1 mg PO DAILY 11/11/21 09/16/23 History fluocinonide 0.05 % topical cream 1 applic topical BID PRN Rash 01/29/23 09/16/23 History multivitamin 1 tab PO DAILY 06/11/23 09/16/23 History propranolol 10 mg tablet 10 mg PO BID #60 tabs 08/03/23 09/16/23 Rx naltrexone 50 mg tablet 50 mg PO QAM 08/18/23 09/16/23 History Allergies Allergy/AdvReac Type Severity Reaction Status Date / Time No Known Allergies Allergy Mild Verified 09/16/23 10:31 Past Med/Surg History Problem List (Updated 10/04/23 @ 00:27 by Humberto Grant MD) History of seizures (Acute) Shakiness (Acute) Laennec's cirrhosis (alcoholic) Alcohol cessation counseling Hypertension Pancytopenia Abnormal LFTs (Acute) Alcohol intoxication (Acute) Vomiting (Acute) Tachycardia (Acute) Alcohol withdrawal (Acute) Nausea (Acute) Delirium tremens (Acute) CHI (closed head injury) (Acute) Elevated LFTs (Acute) Thrombocytopenia (Acute) Seizure (Acute) Alcoholic liver disease Hepatic encephalopathy Delirium tremens Hypomagnesemia (Acute) Abnormal LFTs DVT prophylaxis Thrombocytopenia (Acute) High anion gap metabolic acidosis Hypokalemia Alcohol withdrawal seizure (Acute) Alcohol withdrawal (Acute) Alcoholism (Acute) Seizures (~11/16/21) Medical History Essential hypertension Tremor of both hands "getting better>improvement noted" Epilepsy last episode 07/2023>has not seen neuro for a long time Hypertension Alcohol abuse quit>last drink 07/26/23 Cirrhosis liver cirrhosis>etoh related Surgical History History of tooth extraction Family History Father Skin cancer of face Other No family history of adverse response to anesthesia Denies family history of Alcoholism Seizure disorder Social History Smoking Status: Never smoker Tobacco Type: Cigarettes Cigarettes Per Day: 10 cig daily>advised; Second Hand Exposure: No; Do You Dip or Chew Tobacco: No; Hx Alcohol Use: No (see summary page for details) Hx Substance Use: No Preferred Language: [place] Citizen Communication Ability: Effective Dining Room Host Required: No Beliefs That Will Affect Care: None marital status: Single marital status details: x 2 Current Living Situation: Family Current Living Situation Comment: with father current occupational status: 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 How many Children do You have: 0 Feels Safe at Home: Yes Assistive Devices: Contacts and Denture - Upper Review of Systems A total of 10 systems reviewed and were otherwise negative Physical Exam Vital Signs Vital Signs - 24 hr 10/03/23 21:31 10/03/23 22:07 10/03/23 23:47 Temperature 36.6 C Temperature Source Temporal Artery Scan Pulse Rate 60 63 Pulse Rate [Apical] 71 Pulse Rhythm Pulse Rhythm [Apical] Regular Pulse Strength [Apical] Normal Respiratory Rate 24 22 Respiratory Effort / Characteristics Non-Labored Spontaneous Respiratory Depth Normal Respiratory Pattern Regular Blood Pressure 99/43 L Blood Pressure [Left Arm] 176/105 H Blood Pressure Mean 61 Blood Pressure Mean [Left Arm] 128 Blood Pressure Position Sitting Blood Pressure Position [Left Arm] Semi-fowlers Pulse Oximetry 98 91 Oxygen Delivery Method Room Air Room Air Sepsis Recent Fever Within 48 Hours No Sepsis New/Unexplained Change in Mental Status N/A Sepsis Action Taken by Nursing No Action Required 10/03/23 23:55 Temperature Temperature Source Pulse Rate 71 Pulse Rate [Apical] Pulse Rhythm Regular Pulse Rhythm [Apical] Pulse Strength [Apical] Respiratory Rate 20 Respiratory Effort / Characteristics Respiratory Depth Respiratory Pattern Blood Pressure Blood Pressure [Left Arm] Blood Pressure Mean Blood Pressure Mean [Left Arm] Blood Pressure Position Blood Pressure Position [Left Arm] Pulse Oximetry 91 Oxygen Delivery Method Room Air Sepsis Recent Fever Within 48 Hours Sepsis New/Unexplained Change in Mental Status Sepsis Action Taken by Nursing General: Well developed well nourished middle-age male who is mildly diaphoretic and shaky complaining of feeling like he is in alcohol withdrawal in no acute distress, breathing comfortably on room air. Normal speech. Normal mentation alert and orient x 3 normal speech. HEENT: Normal cephalic atraumatic. Pupils are equal round and reactive to light. Extraocular movements are intact. Oropharynx is pink with moist mucous membranes. No swelling of the mouth lips or tongue. Neck: Supple with a midline trachea. No meningeal signs or stiffness, no JVD or bruits. No Stridor. Chest: Clear to auscultation bilaterally. No wheezes or rhonchi. No increased work of breathing. Heart: Regular rate and rhythm without murmurs or gallops. Abdomen: Soft nontender, nondistended without rebound guarding or rigidity. Extremities: No cyanosis clubbing or edema. No calf tenderness or assymetry Spine/Back. Non tender to palpation. No CVA tenderness Skin: Good turgor without rashes. Neurologic exam: Cranial nerves two through 12 are intact. Motor and sensation are intact and symmetrical throughout. Shaky but nonfocal otherwise Course Administered Medications Discontinued Medications Sodium Chloride (Nss) 1,000 mls @ 999 mls/hr IV .Q1H1M ONE Stop: 10/03/23 22:53 Last Infusion: 10/03/23 23:05 Dose: Infused Documented By: Admin: 10/03/23 21:58 Dose: 999 mls/hr Documented By: JEANNE Multivitamins 10 ml/ Thiamine HCl 100 mg/ Folic Acid 1 mg/Sodium Chloride 1,011.2 mls @ 500 mls/hr IV .Q2H2M ONE Stop: 10/03/23 23:54 Last Admin: 10/03/23 22:42 Dose: 500 mls/hr Documented By: JEANNE Magnesium Sulfate/Dextrose (Magnesium Sulfate / D5w) 1 gm in 100 mls @ 200 mls/hr IV Q30M ROBIN Stop: 10/03/23 23:35 Last Admin: 10/03/23 23:53 Dose: 200 mls/hr Documented By: Infusion: 10/03/23 23:40 Dose: Infused Documented By: Admin: 10/03/23 22:43 Dose: 200 mls/hr Documented By: JEANNE Lorazepam (Lorazepam 1 Mg/1 Ml Syr Ed Inj Use) 2 mg IV ONE STA Stop: 10/03/23 21:54 Last Admin: 10/03/23 21:57 Dose: 2 mg Documented By: JEANNE Lorazepam (Lorazepam 1 Mg/1 Ml Syr Ed Inj Use) 1 mg IV ONE STA Stop: 10/03/23 23:20 Last Admin: 10/03/23 23:51 Dose: 1 mg Documented By: OVI Critical Care Time Critical Care Time: Yes Total Critical Care Time: 32 The patient's alcohol withdrawal, need for multiple medications frequent reassessment monitoring and consultation, I have personally spent greater than 32 minutes of critical care time in the direct management of this patient. This includes bedside care, interpretation of diagnostic studies, and testing, discussion with consultants, patient, and family members, and other required patient management activities. This 32 minutes is in excess of all separately billable procedures. Medical Decision Making Differential Diagnosis Alcohol withdrawal, seizure, cardiac disease, electrolyte or metabolic abnormality, infection, head injury or trauma Medical Records Attestation: I reviewed the patient's medical records. Home Medications Current Medication List: was personally reviewed by nd Laboratory Data Attestation: I reviewed the patient's lab results. 10/03/23 21:49 10/03/23 21:49 Lab Results 10/03/23 10/03/23 10/03/23 Range/Units 21:49 21:51 22:40 WBC 6.13 (4.8-10.8) K/ul RBC 4.62 L (4.70-6.10) M/uL Hgb 15.2 (14.0-18.0) g/dl Hct 43.5 (42.0-52.0) % MCV 94.2 (80.0-100.0) fL MCH 32.9 (25.0-34.0) pg MCHC 34.9 (32.0-36.0) g/dL RDW Std Deviation 45.6 (36.4-46.3) fL RDW Coeff of Amena 13.3 (11.5-14.5) % Plt Count 115 L (130-400) K/uL MPV 10.0 (9.4-12.4) fL Immature Gran % (Auto) 0.3 % Neut % (Auto) 71.3 % Lymph % (Auto) 22.2 % [place] % (Auto) 5.9 % Eos % (Auto) 0.0 % Baso % (Auto) 0.3 % Neut # (Auto) 4.37 (1.40-6.50) K/uL Lymph # (Auto) 1.36 (1.20-3.40) K/uL [place] # (Auto) 0.36 (0.11-0.59) K/uL Eos # (Auto) 0.00 (0.00-0.50) K/uL Baso # (Auto) 0.02 (0.00-0.20) K/uL Immature Gran # (Auto) 0.02 (0.01-0.20) K/uL PT 12.0 (9.0-12.0) Seconds INR 1.1 (0.9-1.1) Sodium 138 (136-145) mmol/L Potassium 3.8 (3.5-5.1) mmol/L Chloride 100 (98-107) mmol/L Carbon Dioxide 17 L (21-32) mmol/L Anion Gap 21 H (3-11) BUN 14 (6-23) mg/dl Creatinine 0.82 (0.6-1.4) mg/dl Est Cr Clr Drug Dosing Not Reportable Est GFR ( Amer) 122.9 ml/min Est GFR (Non-Af Amer) 106.0 ml/min BUN/Creatinine Ratio 17.1 (10-20) Glucose 119 H (70-99(Fasting)) mg/dl POC Glucose 130 H (70-99) mg/dl Calcium 10.0 (8.6-10.3) mg/dl Magnesium 1.4 L (1.7-2.4) mg/dl Total Bilirubin 1.9 H (0.2-1.0) mg/dl AST 56 H (13-39) U/L ALT 25 (7-52) U/L Alkaline Phosphatase 95 (34-104) U/L Ammonia 32.0 (18-72) umol/L Troponin I High Sens 5.5 (0-20) pg/ml Total Protein 9.3 H (6.0-8.3) gm/dl Albumin 5.0 (3.4-5.0) gm/dl Globulin 4.3 H (2.5-4.0) gm/dl Albumin/Globulin Ratio 1.2 (0.9-2) Lipase 27 (11-82) U/L Ethyl Alcohol mg/dL 42.4 H (<10.0) mg/dl Imaging Data Attestation: I personally reviewed and interpreted this imaging study as follows: My Impression: Head CTno hemorrhage or mass effect seen Radiologist's Impression: Head CT 10/03/23 21:55 Exam(s): CT HEAD Without Contrast EXAM: CT Head Without Intravenous Contrast CLINICAL HISTORY: Reason for exam: headache. TECHNIQUE: Axial computed tomography images of the head/brain without intravenous contrast. Automated exposure control was utilized for the study. A dose lowering technique was utilized adhering to the principles of ALARA. COMPARISON: No relevant prior studies available. FINDINGS: No acute intracranial hemorrhage. No midline shift or mass effect. The territorial thomas-white matter differentiation is maintained throughout. Age-related cerebral volume loss. Periventricular and subcortical white matter hypoattenuation, consistent with chronic microangiopathy. The visualized orbits appear grossly unremarkable. The calvarium is intact. The visualized paranasal sinuses and mastoid air cells are grossly clear. IMPRESSION: No acute intracranial hemorrhage, midline shift, or mass effect. Electronically signed by: Mo Poe MD 10/04/23 00:21 AM ECG Data Attestation: I personally reviewed and interpreted this ECG as follows: Indication: + weakness Rate (beats per minute): 65 Rhythm: + normal sinus ECG Intervals/blocks: + Normal QRS, + Normal QT and + Normal HI ECG [place]: + Normal ECG ST segments: + Normal ST segments ECG Findings: no PACs or no PVCs Comparison ECG Date: from (07/28/23) Change: no significant change MDM Narrative This patient comes in with complaints of alcohol withdrawal. He was placed as a priority patient. I went and saw him promptly I did order Ativan 2 mg IV. He was also given a IV fluid bolus and IV banana bag he was placed on a cardiac specialist seizure precautions were applied I reviewed his records he is on Lamictal for seizures and they are probably more of alcohol withdrawal. Multiple blood testing was obtained EKG was obtained shows no definite ischemic changes. He was reassessed frequently. His magnesium was low was repleted with IV magnesium. When I rechecked him, he was feeling a lot better after the Ativan . I rechecked him later on and he still says he feels better but I thought he was maybe a little shaky so I gave him additional 1 mg Ativan IV because I wanted to make sure we do not get behind on withdrawal. CAT scan of his head is unremarkable. I do think he needs to be admitted/observed for alcohol withdrawal. I have discussed case at length with Dr. Leslie will see him the ER for these measures. Continuous cardiac monitoring: Orders placed in EMR for continuous cardiac monitoring: Upon my evaluation patient was noted to be normal sinus rhythm rate of 70 Impression & Plan Alcohol withdrawal, Hypomagnesemia, Shakiness, History of seizures Discharge Plan Visit Data Chief Complaint: Alcohol Withdrawal Stated Complaint: ALCOHOL WITHDRAWL ED Provider: Humberto Grant Discharge Problem: Alcohol withdrawal, Hypomagnesemia, Shakiness, History of seizures Forms Stand Alone Forms: My [facility], Suicide Prevention Resources Prescriptions Prescriptions: No Action lamotrigine [Lamictal] 150 mg tablet 150 mg PO BID fluocinonide 0.05 % cream 1 applic topical BID PRN (Reason: Rash) Rx Instructions: Apply to areas of the trunk and extremities twice daily x 2 weeks as directed. clonidine HCl 0.1 mg tablet 0.2 mg PO BID folic acid 1 mg tablet 1 mg PO DAILY multivitamin Tablet 1 tab PO DAILY propranolol 10 mg Tablet 10 mg PO BID Qty: 60 1RF naltrexone 50 mg tablet 50 mg PO QAM Rx Instructions: take 1/2 tablet (25mg) once daily on 08/03 and 08/04, then increase to 50mg once daily thereafter. Referrals Referrals: Luis Antonio Guevara [Primary Care Provider] - Discharge Problem: Alcohol withdrawal Qualifiers: Complication of substance-induced condition: uncomplicated Qualified Code(s): F 10.930 - Alcohol use, unspecified with withdrawal, uncomplicated
[2023-10-03 22:26] LABS: Alanine Aminotransferase 25 U/L (7-52); Albumin Globulin Ratio 1.2 (0.9-2); Alkaline Phosphatase 95 U/L (34-104); Anion Gap 21 (3-11); Aspartate Aminotransferase 56 U/L (13-39); BUN Creatinine Ratio 17.1 (10-20); Bilirubin,Total 1.9 mg/dl (0.2-1.0); Blood Urea Nitrogen 14 mg/dl (6-23); Carbon Dioxide 17 mmol/L (21-32); Chloride 100 mmol/L (98-107); Est GFR (African American) 122.9 ml/min; Globulin 4.3 gm/dl (2.5-4.0); Glucose 119 mg/dl (70-99(Fasting)); Lipase 27 U/L (11-82); Magnesium 1.4 mg/dl (1.7-2.4); Potassium 3.8 mmol/L (3.5-5.1); Sodium 138 mmol/L (136-145); Total Protein 9.3 gm/dl (6.0-8.3)
[2023-10-03 22:32] LABS: Troponin I High Sensitivity 5.5 pg/ml (0-20)
[2023-10-03] MEDS: MULTI-VITAMIN INFUSION 10 ML, THIAMINE HCL 100 MG, FOLIC ACID 1 MG in SODIUM CHLORIDE 0... IV ONE (22:42)
[2023-10-03] MEDS: MAGNESIUM SULFATE / D5W 1 GM/100 ML BAG IV SCH (22:43)
[2023-10-03 22:45] LABS: INR 1.1 (0.9-1.1)
[2023-10-03 23:04] LABS: Basophils # (auto) 0.02 K/uL (0.00-0.20); Basophils % (auto) 0.3 %; Hematocrit (blood only) 43.5 % (42.0-52.0); Hemoglobin 15.2 g/dl (14.0-18.0); Immature Granulocytes # (auto) 0.02 K/uL (0.01-0.20); Immature Granulocytes % (auto) 0.3 %; Lymphocytes # (auto) 1.36 K/uL (1.20-3.40); Lymphocytes % (auto) 22.2 %; Mean Corpuscular Hemoglobin 32.9 pg (25.0-34.0); Mean Corpuscular Hgb Conc 34.9 g/dL (32.0-36.0); Mean Corpuscular Volume 94.2 fL (80.0-100.0); Monocytes # (auto) 0.36 K/uL (0.11-0.59); Monocytes % (auto) 5.9 %; Neutrophils # (auto) 4.37 K/uL (1.40-6.50); Neutrophils % (auto) 71.3 %; Platelet Count 115 K/uL (130-400); RDW Coefficient of Variation 13.3 % (11.5-14.5); RDW Standard Deviation 45.6 fL (36.4-46.3); Red Blood Count 4.62 M/uL (4.70-6.10); White Blood Count 6.13 K/ul (4.8-10.8)
--- NOTE | 2023-10-03 23:53 | History & Physical Report ---
Date of Service October 03, 2023 Assessment & Plan (1) Alcohol withdrawal: (2) Laennec's cirrhosis (alcoholic): (3) Hypomagnesemia: (4) Alcohol intoxication: (5) History of seizures: (6) Hypertension: Plan Alcohol withdrawal with history of seizures- He is received a total lorazepam 3 mg IV from the ED, which his father reports has improved his shakes while in the ED Presently is receiving banana bag, and magnesium sulfate 2 g IV, and normal saline 1 L bolus AWSS protocol with progressive IV lorazepam dosages Lorazepam 1 mg IV every 4 hours until baseline tremors improve Thiamine 100 mg IV daily Folic acid 1 mg IV daily Zofran 4 mg IV every 6 hours as needed Pantoprazole 40 mg IV daily NSS + KCl 20 mill equivalents at 100 mL/h x 1 L Serial CBC with differential, chemistry profile and magnesium level in the a.m. Seizure history- Continue lamotrigine 150 mg p.o. twice daily Hypomagnesemia- Magnesium 1.4 at admission Receiving 2 g magnesium sulfate IV Recheck laboratories in the a.m. Hypertension- Will resume clonidine 0.2 mg p.o. twice daily in the a.m. Continue propranolol 10 mg p.o. twice daily and lisinopril 20 mg p.o. twice daily History of Present Illness Chief Complaint: The patient presents to the emergency department due to concerns regarding increasing tremors over the past 24 hours and concerns regarding alcohol withdrawal Primary Care Provider: Luis Antonio Guevara The patient is a 48-year-old male with a past medical history including alcohol withdrawal seizures, alcoholic cirrhosis, hypertension, history of delirium tremens, alcoholism and frequent admissions for alcohol withdrawal. The patient presents to the emergency department with symptoms of shakiness, similar to previous episodes of alcohol withdrawal. He reports his last alcohol intake was about 24 hours ago. His last intake of food is about 24 hours ago as well. Allergies Allergy/AdvReac Type Severity Reaction Status Date / Time No Known Allergies Allergy Mild Verified 10/04/23 01:53 Home Medications Medication Instructions Recorded Confirmed Type lamotrigine 150 mg tablet 150 mg PO BID 01/13/21 10/04/23 History (Lamictal) clonidine HCl 0.1 mg tablet 0.2 mg PO BID 11/11/21 10/04/23 History folic acid 1 mg tablet 1 mg PO DAILY 11/11/21 10/04/23 History fluocinonide 0.05 % topical cream 1 applic topical BID PRN Rash 01/29/23 10/04/23 History multivitamin 1 tab PO DAILY 06/11/23 10/04/23 History propranolol 10 mg tablet 10 mg PO BID #60 tabs 08/03/23 10/04/23 Rx naltrexone 50 mg tablet 50 mg PO QAM 08/18/23 10/04/23 History lisinopril 20 mg tablet 20 mg PO BID 10/04/23 10/04/23 History Past Med/Surg History Problem List (Updated 10/04/23 @ 00:27 by Humberto Grant MD) History of seizures (Acute) Shakiness (Acute) Laennec's cirrhosis (alcoholic) Alcohol cessation counseling Hypertension Pancytopenia Abnormal LFTs (Acute) Alcohol intoxication (Acute) Vomiting (Acute) Tachycardia (Acute) Alcohol withdrawal (Acute) Nausea (Acute) Delirium tremens (Acute) CHI (closed head injury) (Acute) Elevated LFTs (Acute) Thrombocytopenia (Acute) Seizure (Acute) Alcoholic liver disease Hepatic encephalopathy Delirium tremens Hypomagnesemia (Acute) Abnormal LFTs DVT prophylaxis Thrombocytopenia (Acute) High anion gap metabolic acidosis Hypokalemia Alcohol withdrawal seizure (Acute) Alcohol withdrawal (Acute) Alcoholism (Acute) Seizures (~11/16/21) Medical History Essential hypertension Tremor of both hands "getting better>improvement noted" Epilepsy last episode 07/2023>has not seen neuro for a long time Hypertension Alcohol abuse quit>last drink 07/26/23 Cirrhosis liver cirrhosis>etoh related Surgical History History of tooth extraction Family History Father Skin cancer of face Other No family history of adverse response to anesthesia Denies family history of Alcoholism Seizure disorder Social History Smoking Status: Never smoker Tobacco Type: Cigarettes Cigarettes Per Day: 10 cig daily>advised; Second Hand Exposure: No; Do You Dip or Chew Tobacco: No; Hx Alcohol Use: No (see summary page for details) Hx Substance Use: No Preferred Language: Thai Communication Ability: Effective Inside Trucker Required: No Beliefs That Will Affect Care: None marital status: Single marital status details: x 2 Current Living Situation: Family Current Living Situation Comment: with father current occupational status: 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 [place] How many Children do You have: 0 Feels Safe at Home: Yes Assistive Devices: Contacts and Denture - Upper Review of Systems Review of Systems: The patient denies chest pain, palpitations, shortness of breath, dyspnea on exertion, cough, lower extremity swelling, sore throat, fevers, chills, sweats, nausea, vomiting, diarrhea , constipation, abdominal pain, pelvic pain, blood in urine or stool, dysuria, urinary frequency or urgency, loss of cons ciousness, rash, abnormal bruising or bleeding, imbalance, focal or generalized weakness, numbness or tingling in arms or legs, generalized arthralgias or myalgias, back or neck pain, or night sweats. The review of systems is otherwise negative other than for that already noted above, and at least 10 systems have been reviewed. Physical Exam Physical Exam: The patient is awake, alert and oriented 3, well developed and well nourished, normocephalic and atraumatic, lying in bed and in no acute distress. HEENT--PERRL, EOMI, mucous membranes and oropharynx dry. Neck--supple. No JVD. No bruits. Thyroid normal, trachea midline, no adenopathy. Heart--normal S1 and S2. No murmurs, rubs or gallops. Lungs--clear bilaterally, no respiratory distress, no accessory muscle use. Abdomen--normal bowel sounds and soft. Nontender. Nondistended, no hernias or masses, no organomegaly. Extremities--no cyanosis or clubbing. No edema. There are good distal pulses b/l. Dermatologic--normal skin turgor, normal color, no abnormal lymph nodes, no rash. Neurologic--cranial nerves II through XII grossly intact. Mild shaking of upper extremities Rheumatologic--normal range of motion. Psychiatric--normal affect. Results & Data Results & Data Vital Signs (Past 12 Hours) Vital Signs Temp Pulse Resp BP Pulse Ox O2 Del Method 10/03/23 22:07 63 10/03/23 21:31 36.6 C 60 24 99/43 L 98 Room Air Laboratory Results Laboratory Results WBC 6.13 K/ul (4.8-10.8) 10/03/23 21:49 RBC 4.62 M/uL (4.70-6.10) L 10/03/23 21:49 Hgb 15.2 g/dl (14.0-18.0) 10/03/23 21:49 Hct 43.5 % (42.0-52.0) 10/03/23 21:49 MCV 94.2 fL (80.0-100.0) 10/03/23 21:49 MCH 32.9 pg (25.0-34.0) 10/03/23 21:49 MCHC 34.9 g/dL (32.0-36.0) 10/03/23 21:49 RDW Std Deviation 45.6 fL (36.4-46.3) 10/03/23 21:49 RDW Coeff of Amena 13.3 % (11.5-14.5) 10/03/23 21:49 Plt Count 115 K/uL (130-400) L 10/03/23 21:49 MPV 10.0 fL (9.4-12.4) 10/03/23 21:49 Immature Gran % (Auto) 0.3 % 10/03/23 21:49 Neut % (Auto) 71.3 % 10/03/23 21:49 Lymph % (Auto) 22.2 % 10/03/23 21:49 Sumner % (Auto) 5.9 % 10/03/23 21:49 Eos % (Auto) 0.0 % 10/03/23 21:49 Baso % (Auto) 0.3 % 10/03/23 21:49 Neut # (Auto) 4.37 K/uL (1.40-6.50) 10/03/23 21:49 Lymph # (Auto) 1.36 K/uL (1.20-3.40) 10/03/23 21:49 Sumner # (Auto) 0.36 K/uL (0.11-0.59) 10/03/23 21:49 Eos # (Auto) 0.00 K/uL (0.00-0.50) 10/03/23 21:49 Baso # (Auto) 0.02 K/uL (0.00-0.20) 10/03/23 21:49 Immature Gran # (Auto) 0.02 K/uL (0.01-0.20) 10/03/23 21:49 PT 12.0 Seconds (9.0-12.0) 10/03/23 21:49 INR 1.1 (0.9-1.1) 10/03/23 21:49 Sodium 138 mmol/L (136-145) 10/03/23 21:49 Potassium 3.8 mmol/L (3.5-5.1) 10/03/23 21:49 Chloride 100 mmol/L (98-107) 10/03/23 21:49 Carbon Dioxide 17 mmol/L (21-32) L 10/03/23 21:49 Anion Gap 21 (3-11) H 10/03/23 21:49 BUN 14 mg/dl (6-23) 10/03/23 21:49 Creatinine 0.82 mg/dl (0.6-1.4) 10/03/23 21:49 Est Cr Clr Drug Dosing Not Reportable 10/03/23 21:49 Est GFR ( Amer) 122.9 ml/min 10/03/23 21:49 Est GFR (Non-Af Amer) 106.0 ml/min 10/03/23 21:49 BUN/Creatinine Ratio 17.1 (10-20) 10/03/23 21:49 Glucose 119 mg/dl (70-99(Fasting)) H 10/03/23 21:49 POC Glucose 130 mg/dl (70-99) H 10/03/23 21:51 Calcium 10.0 mg/dl (8.6-10.3) 10/03/23 21:49 Magnesium 1.4 mg/dl (1.7-2.4) L 10/03/23 21:49 Total Bilirubin 1.9 mg/dl (0.2-1.0) H 10/03/23 21:49 AST 56 U/L (13-39) H 10/03/23 21:49 ALT 25 U/L (7-52) 10/03/23 21:49 Alkaline Phosphatase 95 U/L (34-104) 10/03/23 21:49 Ammonia 32.0 umol/L (18-72) 10/03/23 22:40 Troponin I High Sens 5.5 pg/ml (0-20) 10/03/23 21:49 Total Protein 9.3 gm/dl (6.0-8.3) H 10/03/23 21:49 Albumin 5.0 gm/dl (3.4-5.0) 10/03/23 21:49 Globulin 4.3 gm/dl (2.5-4.0) H 10/03/23 21:49 Albumin/Globulin Ratio 1.2 (0.9-2) 10/03/23 21:49 Lipase 27 U/L (11-82) 10/03/23 21:49 Ethyl Alcohol mg/dL 42.4 mg/dl (<10.0) H 10/03/23 21:[address] 10/03/23 21:55 Exam(s): CT HEAD Without Contrast EXAM: CT Head Without Intravenous Contrast CLINICAL HISTORY: Reason for exam: headache. TECHNIQUE: Axial computed tomography images of the head/brain without intravenous contrast. Automated exposure control was utilized for the study. A dose lowering technique was utilized adhering to the principles of ALARA. COMPARISON: No relevant prior studies available. FINDINGS: No acute intracranial hemorrhage. No midline shift or mass effect. The territorial thomas-white matter differentiation is maintained throughout. Age-related cerebral volume loss. Periventricular and subcortical white matter hypoattenuation, consistent with chronic microangiopathy. The visualized orbits appear grossly unremarkable. The calvarium is intact. The visualized paranasal sinuses and mastoid air cells are grossly clear. IMPRESSION: No acute intracranial hemorrhage, midline shift, or mass effect. Electronically signed by: Mo Poe MD 10/04/23 00:21 AM Code Status & VTE Plan Code Status Full code VTE Prophylaxis Plan VTE Prophylaxis will be ordered: Yes PG Care Time/CCT Total # of Minutes Spent Total Time Spent with Patient: Total time spent is greater than 50% in coordination of care (as documented) at patient's floor/unit and/or counseling patient: Coding Level of Care Code 91776 INT INP/OBS CARE 3/75MIN Diagnoses Alcohol withdrawal F10.930 Complication of substance-induced condition: uncomplicated Laennec's cirrhosis (alcoholic) K70.30 Hypomagnesemia E83.42 Alcohol intoxication F10.929 History of seizures Z87.898 Hypertension I10 (1) Alcohol withdrawal Complication of substance-induced condition: uncomplicated Qualified Code(s): F10.930 - Alcohol use, unspecified with withdrawal, uncomplicated
--- NOTE | 2023-10-04 00:22 | CT Scan Report ---
Exam(s): CT HEAD Without Contrast EXAM: CT Head Without Intravenous Contrast CLINICAL HISTORY: Reason for exam: headache. TECHNIQUE: Axial computed tomography images of the head/brain without intravenous contrast. Automated exposure control was utilized for the study. A dose lowering technique was utilized adhering to the principles of ALARA. COMPARISON: No relevant prior studies available. FINDINGS: No acute intracranial hemorrhage. No midline shift or mass effect. The territorial thomas-white matter differentiation is maintained throughout. Age-related cerebral volume loss. Periventricular and subcortical white matter hypoattenuation, consistent with chronic microangiopathy. The visualized orbits appear grossly unremarkable. The calvarium is intact. The visualized paranasal sinuses and mastoid air cells are grossly clear. IMPRESSION: No acute intracranial hemorrhage, midline shift, or mass effect. Electronically signed by: Mo Poe MD 10/04/23 00:21 AM
[2023-10-04] MEDS: PANTOprazole 40 MG in SYRINGE 0 ML IV STA (00:49)
[2023-10-04] MEDS ORDERED: LORazepam 2 MG in SYRINGE 1 ML IV PRN (01:24)
[2023-10-04] MEDS ORDERED: Ativan IV Alcohol Withdrawal--Active Protocol IV PRN (01:24)
[2023-10-04] MEDS ORDERED: ONDANSETRON INJ 2 MG/ML 2 ML VIAL IV PRN (01:24)
[2023-10-04] MEDS ORDERED: LORazepam 3 MG in SYRINGE 1.5 ML IV PRN (01:24)
[2023-10-04] MEDS: LORazepam 1 MG in SYRINGE 0.5 ML IV SCH (03:00)
[2023-10-04] MEDS: cloNIDine HCL 0.1 MG TAB PO ONE (04:31)
[2023-10-04] MEDS: NSS + 20MEQ KCL 20 MEQ/1,000 ML BAG IV SCH (04:33)
[2023-10-04 06:37] LABS: Basophils # (auto) 0.01 K/uL (0.00-0.20); Basophils % (auto) 0.2 %; Hematocrit (blood only) 39.8 % (42.0-52.0); Hemoglobin 13.9 g/dl (14.0-18.0); Immature Granulocytes # (auto) 0.02 K/uL (0.01-0.20); Immature Granulocytes % (auto) 0.3 %; Lymphocytes # (auto) 0.92 K/uL (1.20-3.40); Lymphocytes % (auto) 15.9 %; Mean Corpuscular Hemoglobin 32.9 pg (25.0-34.0); Mean Corpuscular Hgb Conc 34.9 g/dL (32.0-36.0); Mean Corpuscular Volume 94.3 fL (80.0-100.0); Mean Platelet Volume 10.5 fL (9.4-12.4); Monocytes # (auto) 0.47 K/uL (0.11-0.59); Monocytes % (auto) 8.1 %; Neutrophils # (auto) 4.37 K/uL (1.40-6.50); Neutrophils % (auto) 75.5 %; Platelet Count 73 K/uL (130-400); RDW Coefficient of Variation 13.6 % (11.5-14.5); RDW Standard Deviation 46.8 fL (36.4-46.3); Red Blood Count 4.22 M/uL (4.70-6.10); White Blood Count 5.79 K/ul (4.8-10.8)
[2023-10-04 06:42] LABS: Appearance Urine Clear (Clear); Bacteria Urine Automated None Seen (None Seen); Bilirubin Urine Negative (Negative); Blood Urine 3+ (Negative); Cast Urine Automated 0-2 /lpf (0-2); Color Urine Yellow; Epithelial Cell Urine Auto 0-2 /hpf (0-2); Glucose Urine UA Negative (Negative); Ketones Urine 3+ (Negative); Leukocyte Esterase Urine Negative (Negative); Nitrite Urine Negative (Negative); Protein Urine 3+ (Negative); RBC Urine Automated >20 /hpf (0-2); Specific Gravity Urine 1.025 (1.000-1.030); Urobilinogen Urine Negative (Negative); WBC Urine Automated 0-5 /hpf (0-5)
[2023-10-04 06:55] LABS: Albumin Globulin Ratio 1.2 (0.9-2); Albumin Level 4.6 gm/dl (3.4-5.0); BUN Creatinine Ratio 18.9 (10-20); Bilirubin,Total 2.2 mg/dl (0.2-1.0); Calcium 8.9 mg/dl (8.6-10.3); Est GFR (African American) 128.2 ml/min; Est GFR (Non-African American) 110.6 ml/min; Globulin 3.7 gm/dl (2.5-4.0); Total Protein 8.3 gm/dl (6.0-8.3)
[2023-10-04 06:59] LABS: INR 1.1 (0.9-1.1); Partial Thromboplastin Time 26 Seconds (21-31); Prothrombin Time 12.2 Seconds (9.0-12.0)
--- NOTE | 2023-10-04 07:47 | Electrocardiogram Report ---
Test Reason : Blood Pressure : / mmHG Vent. Rate : 065 BPM Atrial Rate : 065 BPM P-R Int : 142 ms QRS Dur : 094 ms QT Int : 468 ms P-R-T Axes : 055 026 041 degrees QTc Int : 486 ms Normal sinus rhythm with sinus arrhythmia Prolonged QT Abnormal ECG When compared with ECG of 28-JUL-2023 06:35, No significant change was found Confirmed by Inocencio Clarke ([id number]) on 10/04/2023 7:46:26 AM Referred By: REFERRED SELF Confirmed By:Inocencio Clarke
[2023-10-04] MEDS: lisinopril 20 MG TAB PO SCH (09:08)
[2023-10-04] MEDS: PROPRANOLOL HCL 10 MG TAB PO SCH (09:08)
[2023-10-04] MEDS: THIAMINE HCL 100 MG in SYRINGE 9 ML IV SCH (09:09)
[2023-10-04] MEDS: cloNIDine HCL 0.1 MG TAB PO SCH (09:09)
[2023-10-04] MEDS: FOLIC ACID 1 MG in SYRINGE 9.8 ML IV SCH (09:09)
[2023-10-04] MEDS: PANTOprazole 40 MG in SYRINGE 0 ML IV SCH (10:46)
--- NOTE | 2023-10-04 11:57 | Hospitalist Progress Note ---
Date of Service October 04, 2023 Assessment & Plan (1) Alcohol withdrawal: (2) Laennec's cirrhosis (alcoholic): (3) Hypomagnesemia: (4) Alcohol intoxication: (5) History of seizures: (6) Hypertension: Plan Alcohol withdrawal with history of seizures- AWSS protocol - Transition from scheduled Ativan to Librium taper, continue prn Ativan per protocol Thiamine 100 mg IV daily Folic acid 1 mg IV daily Zofran 4 mg IV every 6 hours as needed Pantoprazole 40 mg IV daily Serial CBC with differential, chemistry profile and magnesium level in the a.m. Seizure history- Continue lamotrigine 150 mg p.o. twice daily Hypomagnesemia- Magnesium 1.4 at admission s/p repletion Recheck laboratories in the a.m. Hypertension- Continue clonidine 0.2 mg p.o. twice daily in the a.m. Continue propranolol 10 mg p.o. twice daily Continue lisinopril 20 mg p.o. twice daily Admission and Anticipated Discharge Date Admission Date: October 03, 2023 Supervising Physician Co-Signing Physician Notes Attending Physician Supervision Note: I independently interviewed and examined the patient and verified the simms history and physical, reviewed labs and image studies and agree with findings and care plan noted above. Unable to give clear history if he is taking natrexone daily or not. Will ask further in am. Subjective Pt seen at bedside this morning, states that prn Ativan has been very helpful, still feels as though the room is spinning but dramatically improved from before. Tremor, anxiety also improved. Not feeling diaphoretic. States that it has been close to 3 days now since last drink, usually begins to experience withdrawal sx around 24 hours after last drink. Has tried groups like AA etc. to maintain sobriety but has not found anything yet that is a good fit. Has managed to independently maintain sobriety for periods up to 6 months. Denies fevers, chills Review of Systems Review of Systems: as per HPI Physical Exam Physical Exam: General: Mild lethargy but alert and oriented. No acute distress Cardiac: Regular rate and rhythm, no murmurs appreciated Respiratory: Lungs clear to auscultation bilaterally, No increased work of breathing Abdominal: Soft, non-distended. Bowel sounds present. Neuro: No focal neurological deficits appreciated, mild bilateral UE resting tremor Skin: warm, mildly diaphoretic Results & Data Results & Data Vital Signs (Past 12 Hours) Vital Signs Pulse Pulse Resp BP BP Pulse Ox Pulse Ox 10/04/23 09:33 77 21 159/107 H 94 10/04/23 09:15 80 21 93 10/04/23 09:12 81 23 93 10/04/23 08:39 80 21 169/100 H 93 10/04/23 08:24 79 21 93 10/04/23 08:00 84 20 160/108 H 93 10/04/23 07:30 85 20 93 10/04/23 07:04 82 10/04/23 07:03 71 22 173/109 H 92 10/04/23 03:00 76 18 179/109 H 93 10/04/23 02:40 92 10/04/23 01:36 87 23 94 10/04/23 01:30 171/107 H 10/04/23 01:30 171/107 H 10/04/23 01:24 80 22 92 10/04/23 01:21 88 24 95 10/04/23 01:15 81 22 92 10/04/23 01:03 78 20 92 10/04/23 01:00 166/101 H 10/04/23 01:00 166/101 H 10/04/23 01:00 166/101 H 10/04/23 00:57 81 22 93 10/04/23 00:45 87 21 92 10/04/23 00:36 83 23 93 10/04/23 00:30 164/101 H 10/04/23 00:30 164/101 H 10/04/23 00:27 82 24 93 10/04/23 00:24 79 24 93 10/04/23 00:15 77 22 92 10/04/23 00:00 74 23 91 10/04/23 00:00 158/98 H 10/04/23 00:00 158/98 H 10/04/23 00:00 158/98 H O2 Del Method O2 Del Method O2 Flow Rate 10/04/23 09:33 10/04/23 09:15 10/04/23 09:12 10/04/23 08:39 10/04/23 08:24 10/04/23 08:00 10/04/23 07:30 10/04/23 07:04 10/04/23 07:03 10/04/23 03:00 Room Air 10/04/23 02:40 Room Air 0 10/04/23 01:36 10/04/23 01:30 10/04/23 01:30 10/04/23 01:24 10/04/23 01:21 10/04/23 01:15 10/04/23 01:03 10/04/23 01:00 10/04/23 01:00 10/04/23 01:00 10/04/23 00:57 10/04/23 00:45 10/04/23 00:36 10/04/23 00:30 10/04/23 00:30 10/04/23 00:27 10/04/23 00:24 10/04/23 00:15 10/04/23 00:00 10/04/23 00:00 10/04/23 00:00 10/04/23 00:00 (1) Alcohol withdrawal Complication of substance-induced condition: uncomplicated Qualified Code(s): F10.930 - Alcohol use, unspecified with withdrawal, uncomplicated
[2023-10-04] MEDS: LORazepam 1 MG in SYRINGE 0.5 ML IV PRN (16:40)
[2023-10-04] MEDS ORDERED: chlordiazePOXIDE ALCOHOL WITHDRAWL 25MG PO STA (17:03)
[2023-10-04] MEDS: chlordiazePOXIDE HCl 25 MG CAP PO SCH (17:36)
[2023-10-05] MEDS: SIMETHICONE 80 MG CHEW PO PRN (00:04)
[2023-10-05] MEDS: FAMOTIDINE 20 MG TAB PO ONE (00:04)
[2023-10-05 07:39] LABS: Basophils # (auto) 0.01 K/uL (0.00-0.20); Basophils % (auto) 0.2 %; Eosinophils # (auto) 0.04 K/uL (0.00-0.50); Hematocrit (blood only) 39.1 % (42.0-52.0); Hemoglobin 13.6 g/dl (14.0-18.0); Immature Granulocytes # (auto) 0.02 K/uL (0.01-0.20); Immature Granulocytes % (auto) 0.5 %; Lymphocytes # (auto) 1.54 K/uL (1.20-3.40); Lymphocytes % (auto) 37.1 %; Mean Corpuscular Hemoglobin 33.3 pg (25.0-34.0); Mean Corpuscular Hgb Conc 34.8 g/dL (32.0-36.0); Mean Corpuscular Volume 95.6 fL (80.0-100.0); Mean Platelet Volume 10.6 fL (9.4-12.4); Monocytes # (auto) 0.44 K/uL (0.11-0.59); Monocytes % (auto) 10.6 %; Neutrophils % (auto) 50.6 %; Platelet Count 60 K/uL (130-400); RDW Coefficient of Variation 13.4 % (11.5-14.5); RDW Standard Deviation 47.1 fL (36.4-46.3); Red Blood Count 4.09 M/uL (4.70-6.10); White Blood Count 4.15 K/ul (4.8-10.8)
[2023-10-05 08:04] LABS: Albumin Globulin Ratio 1.2 (0.9-2); BUN Creatinine Ratio 20.8 (10-20); Bilirubin,Total 1.7 mg/dl (0.2-1.0); Calcium 8.6 mg/dl (8.6-10.3); Creatinine Clr Calc Pharmacy 144.2 ml/min; Est GFR (African American) 126.1 ml/min; Est GFR (Non-African American) 108.8 ml/min; Globulin 3.3 gm/dl (2.5-4.0); Magnesium 1.8 mg/dl (1.7-2.4); Potassium 3.3 mmol/L (3.5-5.1); Total Protein 7.3 gm/dl (6.0-8.3)
[2023-10-05 08:12] LABS: INR 1.1 (0.9-1.1); Partial Thromboplastin Time 27 Seconds (21-31); Prothrombin Time 12.1 Seconds (9.0-12.0)
[2023-10-05] MEDS: POTASSIUM CHLORIDE CRTAB 20 MEQ TABCR PO STA (09:53)
--- NOTE | 2023-10-05 10:07 | Discharge Summary ---
Date of Service October 05, 2023 Admission HPI Per Admitting Provider The patient is a 48-year-old male with a past medical history including alcohol withdrawal seizures, alcoholic cirrhosis, hypertension, history of delirium tremens, alcoholism and frequent admissions for alcohol withdrawal. The patient presents to the emergency department with symptoms of shakiness, similar to previous episodes of alcohol withdrawal. He reports his last alcohol intake was about 24 hours ago. His last intake of food is about 24 hours ago as well. Admission Exam Per Admitting Provider The patient is awake, alert and oriented 3, well developed and well nourished, normocephalic and atraumatic, lying in bed and in no acute distress. HEENT--PERRL, EOMI, mucous membranes and oropharynx dry. Neck--supple. No JVD. No bruits. Thyroid normal, trachea midline, no adenopathy. Heart--normal S1 and S2. No murmurs, rubs or gallops. Lungs--clear bilaterally, no respiratory distress, no accessory muscle use. Abdomen--normal bowel sounds and soft. Nontender. Nondistended, no hernias or masses, no organomegaly. Extremities--no cyanosis or clubbing. No edema. There are good distal pulses b/l. Dermatologic--normal skin turgor, normal color, no abnormal lymph nodes, no rash. Neurologic--cranial nerves II through XII grossly intact. Mild shaking of upper extremities Rheumatologic--normal range of motion. Psychiatric--normal affect. Principal Diagnosis Alcohol withdrawal Discharge Exam General: Alert and oriented. No acute distress Cardiac: Regular rate and rhythm, no murmurs appreciated Respiratory: Lungs clear to auscultation bilaterally, No increased work of breathing Abdominal: Soft, non-distended. Bowel sounds present. Neuro: No focal neurological deficits appreciated, trace bilateral UE resting tremor Skin: warm, mildly diaphoretic Discharge Data Allergies Allergy/AdvReac Type Severity Reaction Status Date / Time No Known Allergies Allergy Mild Verified 10/04/23 01:53 Consultations 10/03/23 23:12 ED Decision to Admit Stat Ordered Studies 10/03/23 21:55 CT head/brain wo con Stat Hospital Course (1) Alcohol withdrawal: (2) Laennec's cirrhosis (alcoholic): (3) Hypomagnesemia: (4) Alcohol intoxication: (5) History of seizures: (6) Hypertension: Plan Alcohol withdrawal with history of seizures- Managed with AWSS protocol - discharged with recommendation to complete Librium taper: - 10mg tablet every 8 hours x3 doses - 5mg tablet every 12 hours x2 doses. Unclear whether patient was taking Naltrexone, Last filled in July 2023. Discharged with rx - to restart Naltrexone 50mg daily Continue daily folic acid supplement Pt plan to look into [facility] in [place] for further treatment Alcoholic Cirrhosis: Continue to follow with GI as recommended Seizure history- Continue lamotrigine 150 mg p.o. twice daily Hypomagnesemia - Resolved: Hypertension- Continue clonidine 0.2 mg p.o. twice daily in the a.m. Continue propranolol 10 mg p.o. twice daily Continue lisinopril 20 mg p.o. twice daily Total Time Total Time Spent Total Time Spent (In Minutes): see attending attestation Discharge Plan Discharge Items Patient Disposition: Home - Self-Care Reason For Visit: ALCOHOL WITHDRAWAL Discharge Diagnosis: EtOH withdrawal Activity: Resume your previous activity Non-emergency contact: Primary Care Provider Call non-emergency contact if: you have any medication questions and your symptoms worsen Follow-up/Referrals: Luis Antonio Guevara [Primary Care Provider] - Diet: Regular Addtl Attending Provider Instructions: You were admitted to the hospital due to alcohol withdrawal. You were started on a Librium taper to help control symptoms during the withdrawal period. Following discharge, we recommend that you complete the Librium taper as directed below. Additionally, we recommend that you continue the Naltrexone - a prescription will be sent to your pharmacy. A discharge summary will be sent to your primary care physician to ensure continuity of care. Please bring this discharge summary with you to your next office appointment so that your provider can review it at that time. Medications: Your medication list has been reviewed and reconciled upon discharge to ensure accuracy and continuity of care. An updated list of all your medications is included with your hospital discharge paperwork. Please review this list closely and make note of any changes to your medications. New medications: - Naltrexone: Please take one 50mg tablet once daily. Your PCP can help determine if this dose should be adjusted moving forward. - Librium (Chlordiazepoxide): - Please take one 10mg tablet every 8 hours x3 doses - Then complete the taper by taking one 5mg tablet every 12 hours x2 doses. Follow up appointments: - Make a follow up appointment with your PCP within the next week. It is very important that you follow up with them shortly after discharge from the hospital. - Keep all of your follow up appointments as already scheduled. If you cannot make an appointment, notify your provider. CONTACT YOUR PRIMARY CARE PROVIDER if you experience any of the following: - Difficulty following your treatment plan - Difficulty taking any of your medications CALL 911 OR GO TO THE EMERGENCY DEPARTMENT if you experience any of the following: - Sudden, severe abdominal pain or nausea/vomiting - Severe chest pain or chest pain that radiates to your jaw or arm - Sudden, severe shortness of breath or difficulty breathing Pending Studies at Discharge: No Stand-Alone Forms: [facility], Smoking Cessation Medications and DC Order Prescriptions: New chlordiazepoxide HCl 5 mg Capsule 10 mg PO Q8H Qty: 8 0RF Rx Instructions: 10 mgs tid for 1 day, 5mgs bid for one day and then stop Continued lamotrigine [Lamictal] 150 mg tablet 150 mg PO BID fluocinonide 0.05 % cream 1 applic topical BID PRN (Reason: Rash) Rx Instructions: Apply to areas of the trunk and extremities twice daily x 2 weeks as directed. clonidine HCl 0.1 mg tablet 0.2 mg PO BID folic acid 1 mg tablet 1 mg PO DAILY multivitamin Tablet 1 tab PO DAILY propranolol 10 mg Tablet 10 mg PO BID Qty: 60 1RF lisinopril 20 mg tablet 20 mg PO BID Rx Instructions: thinks he is still taking , was filled in july for 30 days naltrexone 50 mg tablet 50 mg PO QAM 30 Days Qty: 30 0RF Rx Instructions: take 1/2 tablet (25mg) once daily on 08/03 and 08/04, then increase to 50mg once daily thereafter. Discharge Orders: Discharge Order (Routine); Ordered 10/05/23 Ordered By: Kale Landeros Admission Data Admit Date/Time: 10/03/23 23:53 Attending Provider: Pamela Connolly Admit Provider: Mike Lombardo Primary Care Provider: Luis Antonio Guevara Other Providers: Mike Lombardo Supervising Physician Co-Signing Physician Notes Attending Physician Supervision Note: I independently interviewed and examined the patient and verified the simms history and physical, reviewed labs and image studies and agree with findings and care plan noted above. Resident Activity Tracking Resident Involvement: Resident Care Provided Care Provided: Adult Hospital Medicine
[2023-10-05] MEDS ORDERED: chlordiazePOXIDE HCl 25 MG CAP PO SCH (19:30)
[2023-10-07] MEDS ORDERED: chlordiazePOXIDE HCl 5 MG CAP PO SCH (23:30)
== END 2023-10-05 14:33 | disposition home or self-care (01) | DRG 897 ==
LOC: ED 21:29 → EDINP 23:53 → SUATTDRO 23:53 → 2N 10-04 01:25